=== PATIENT | female | born 1940 | race Caucasian/White ===

== ENCOUNTER 2025-01-09 00:55 | Observation (INO) | payer MEDICARE, OTHER, MEDICAID, SELFPAY ==
[2025-01-09] VITALS (10 sets, daily range): BP systolic 115–156; BP diastolic 47–83; PULSE 74–99; RESP 15–18; TEMP 36.3–37.1; O2SAT 90–100; BMI 25.6; BMI 22.3
--- NOTE | 2025-01-09 01:09 | CT_ITS ---
EXAM: BRAIN/HEAD WITHOUT CONTRAST CLINICAL HISTORY: Syncope COMPARISON: None. TECHNIQUE: Noncontrast images of the head with multiplanar reconstructions. Dose reduction techniques were used including intermediate exposure control (AEC),iterative reconstruction technique, and/or mA and/or KV dose adjustments based on patient's size. FINDINGS: CT HEAD FINDINGS: No acute intracranial hemorrhage, mass, mass effect, midline shift or pathologic extra-axial fluid collection. Nonspecific periventricular white matter changes are noted. The ventricles and cisterns are moderately prominent. Visualized paranasal sinuses and mastoid air cells are clear. The calvarium is grossly intact. CT/Brain/Head without Contrast IMPRESSION: 1. No CT evidence of acute intracranial pathology. 2. Age-appropriate volume loss and remote small vessel ischemic changes. Reading Location: [facility]
--- NOTE | 2025-01-09 01:09 | CT_ITS ---
PROCEDURE: SPINE CERVICAL WITHOUT CONTRAS REASON FOR EXAM: Fall TECHNIQUE: Cervical spine CT without contrast. COMPARISON: None. FINDINGS: Alignment: Normal Vertebrae: No acute fracture Soft Tissues: No large prevertebral hematoma Mild degenerative changes in the disc spaces. CT/Spine Cervical without Contras IMPRESSION: Degenerative change with no acute osseous abnormality. One or more dose reduction techniques were used (e.g., Automated exposure contr ol, adjustment of the mA and/or kV according to patient size, use of iterative reconstruction technique). Reading Location: [facility]
--- NOTE | 2025-01-09 01:09 | EKG12_ITS ---
Test Reason : FALL Blood Pressure : */* mmHG Vent. Rate : 82 BPM Atrial Rate : 82 BPM P-R Int : 154 ms QRS Dur : 78 ms QT Int : 380 ms P-R-T Axes : * -18 55 degrees QTcB Int : 443 ms Sinus rhythm with Premature ventricular complexes or Fusion complexes Low voltage QRS Inferior infarct , age undetermined Cannot rule out Anterior infarct , age undetermined Abnormal ECG Confirmed by ZACH GARCIA, JOSSELIN ([id number]), purchase request editor RODY ANDERSEN ([id number]) on 01/10/2025 8:24:10 AM Referred By: Confirmed By: JOSSELIN SERRANO MD
[2025-01-09 01:46] LABS: Absolute Lymphocyte Count 1.02 X10^3/uL (0.83-4.51); Absolute Neutrophil Count 14.4 X10^3/uL (2.0-7.7); Basophil# 0.04 X10^3/uL; Basophil% 0.2 % (0-1); Eosinophil# 0.06 X10^3/uL; Eosinophils% 0.4 % (0-5); Hematocrit 26.5 % (37-47); Hemoglobin 8.5 g/dL (12.0-15.0); Lymphocyte # 1.02 X10^3/ul (0.83-4.51); Mean Corp Hgb Conc 32.1 g/dL (32-36); Mean Corpuscular Hgb 27.7 pg (27.0-32.0); Mean Corpuscular Volume 86.3 fL (81-99); Mean Platelet Vol. 11.2 fl (6.2-12.0); Monocyte# 1.48 X10^3/uL; Monocyte% 8.7 % (0-10); NRBC Flagged by Analyzer 0 % (0-5); Neutrophil # 14.43 X10^3/uL (2.7-7.7); Neutrophil % 84.3 % (47-70); Platelet Count 279 K/mm3 (150-450); RBC Distribution Width CV 15.9 % (11.6-14.6); RBC Distribution Width SD 49.2 fl (35.1-43.9); Red Blood Count 3.07 M/mm3 (4.2-5.4); White Blood Count 17.1 K/mm3 (4.4-11.0)
[2025-01-09 02:00] LABS: Anion Gap 11 (5-15); BUN 50 mg/dL (7-18); BUN/Creat Ratio 33.8 RATIO (10-20); Calcium,Total 8.6 mg/dL (8.5-10.1); Chloride 102 mmol/L (98-107); Creatinine, Serum 1.48 mg/dL (0.55-1.02); EST Glomerular Filtration Rate 36 mL/min (>60); Est Glom Filt Rate - Afr Amer 43 mL/min (>60); Estimated Creatinine Clearance 22.07 ml/min; Glucose 111 mg/dL (74-106); Magnesium 1.7 mg/dL (1.6-2.6); Potassium 3.3 mmol/L (3.5-5.1); Sodium Level 131 mmol/L (136-145)
--- NOTE | 2025-01-09 02:00 | RAD_ITS ---
PROCEDURE: PELVIS 1 OR 2 VIEWS REASON FOR EXAM: Fall TECHNIQUE: 1 view(s) of the pelvis. COMPARISON: None FINDINGS: No fracture. No suspicious bone lesion. Mild joint space narrowing bilaterally. Normal alignment at the hips and sacroiliac joints. Soft tissues are unremarkable. RAD/Pelvis 1 or 2 Views IMPRESSION: Degenerative changes with no acute osseous abnormality in the pelvis. Reading Location: [facility]
[2025-01-09 02:26] LABS: Bacteria 0 SEEN /hpf (None Seen); Mucous, Urine 0 SEEN /hpf (<or=2+); Squamous Epithelial Cells - UA 0 SEEN /hpf (5-10); White Blood Cells 0 SEEN /hpf (0-5)
--- NOTE | 2025-01-09 02:26 | EDS_ITS ---
HPI History of Present Illness Chief Complaint: Fall Informant: patient and EMS Narrative Narrative: Patient is an 84-year-old female with past medical history of hypothyroidism hypertension hyperlipidemia and dementia. She was recently seen in the hospital on January 02 secondary to mechanical fall where she was found to have an impacted left humeral fracture. There was concern that she may need placed in chcf/rehab so she was kept overnight. However she apparently was able to ambulate and wanted discharged home and therefore was sent back to her home instead of a facility. Reportedly this evening the patient was found lying on the floor by her . The patient states she does not know how she arrived on the floor. She is unsure if she tripped and fell or had a syncopal event. She reports pain in her left arm which is the known fracture but otherwise denies any new areas of trauma. However because of the repeated fall versus syncope she was brought in for evaluation [facility] Home Medications ?Medication ?Instructions ?Recorded ?Last Taken ?Type aspirin 81 mg tablet,delayed 81 mg PO DAILY Heart heal th 01/02/25 Unknown History release atorvastatin 10 mg tablet 80 mg PO QHS cholestrol 08/18 Unknown History calcium 500 mg (as 2 tab PO QHS supplement 08/18 Unknown History carbonate)-vitamin D3 5 mcg (200 unit) tablet (Oyster Shell Calcium-Vitamin D3) clopidogrel 75 mg tablet 75 mg PO DAILY Blood thinner 01/02/25 Unknown History donepezil 5 mg tablet 5 mg PO QHS BP 01/02/25 Unkn own History ergocalciferol (vitamin D2) 1,250 1,250 mcg PO FR supp lement 01/02/25 Unknown History mcg (50,000 unit) capsule gabapentin 300 mg capsule 300 mg PO BID 01/02/25 Unkno wn History isosorbide mononitrate 60 mg 60 mg PO DAILY Heart fail ure 01/02/25 Unknown History tablet,extended release 24 hr levothyroxine 50 mcg tablet 50 mcg PO DAILY 01/02/25 U nknown History losartan 25 mg tablet 25 mg PO DAILY BP 01/02/25 U nknown History metoprolol succinate 50 mg 50 mg PO BID 01/02/25 Unkno wn History tablet,extended release 24 hr mirtazapine 7.5 mg tablet 7.5 mg PO QHS 01/02/25 Unkno wn History omega 3-ypp-itr-fish oil 300 3 cap PO DAILY 01/02/25 U nknown History mg-1,000 mg capsule (Fish Oil) pantoprazole 40 mg tablet,delayed 40 mg PO QHS GERD Unknown History release sucralfate 1 gram tablet 1 g PO BIDAC 01/02/25 Unknow n History acetaminophen 500 mg tablet 1,000 mg (2 x 500 mg) PO Q 8 #0 tabs 01/04/25 Unknown Rx cyanocobalamin (vitamin B-12) 1,000 mcg PO DAILY 01/04 Unknown History 1,000 mcg tablet guaifenesin 600 mg tablet, 600 mg PO BID 01/04/25 Unkn own History extended release 12 hr Allergy/AdvReac Type Severity Reaction Status Date / Time codeine AdvReac Intermediate UNKNOWN Verified 01/09/25 01:00 Social History Smoking Status: Heavy Smoker (>10/day) ROS ROS ED ROS Narrative Please note review of systems may be unreliable secondary to history of dementia Constitutional Constitutional ED: Denies chills or fever(s) Eyes Eyes: Denies change in vision ENT ENT ED: Denies sore throat Cardiovascular Cardiovascular: Denies chest pain, palpitations or racing heartbeat Respiratory/Chest Respiratory/Chest: Denies cough or dyspnea Gastrointestinal Gastrointestinal: Denies abdominal pain, diarrhea, nausea or vomiting Genitourinary Genitourinary ED: Denies dysuria Musculoskeletal Musculoskeletal: Denies back pain or neck pain Integumentary Denies rash Neurologic Neurologic: Denies headache(s) Hematologic/Lymphatic Hematologic/Lymphatic: Denies easy bleeding or easy bruising EXAM Physical Exam Const Vital Signs: 01/09/25 00:57 01/09/25 04:53 Temperature 98.5 F Temperature Source Oral Pulse Rate 82 76 Respiratory Rate 16 16 Blood Pressure 115/57 L 118/47 L Blood Pressure Mean 76 70 Pulse Ox 94 90 Oxygen Delivery Method Nasal Cannula Nasal Cannula Oxygen Flow Rate (L/min) 2 4 Positive well nourished, well developed and obese General Appearance ED: well developed Nutritional Appearance: obese HEENT HEENT Narrative: Normocephalic atraumatic No signs of depressed or basilar skull fracture No tongue or cheek biting to suggest seizure activity Eyes PERRL and EOMs intact bilaterally General Eye ED: Negative for scleral icterus Neck supple Neck Narrative: No bony deformity or step-off of the cervical spine no midline tenderness to palpation Chest Wall palpation of chest normal Chest Narrative: No bony deformity or subcutaneous emphysema noted Resp normal respiratory effort Resp Narrative: Breath sounds are diminished throughout but overall clear to auscultation No nasal flaring retractions tachypnea or accessory muscle use Cardio regular rate and regular rhythm Rate: other Other Details: Heart is regular rate and rhythm with occasional ectopic beat noted Radial and carotid pulses are equal and symmetric GI normal to inspection, nondistended, normoactive bowel sounds, non-tender, non- distended and no masses Auscultation: normoactive bowel sounds Palpation: soft Extremity Extremity Narrative: Pelvis is stable there is no shortening or external rotation of either lower extremity Patient has a large amount of soft tissue swelling ecchymosis to the left humerus consistent with history of recent fracture. However the left upper extremity is neurovascularly intact and all compartments are soft and compressible going against compartment syndrome Neuro CN's II-XII intact bilaterally Neuro Narrative: Patient is at her baseline mental status based on recent chart review without focal neurologic deficit Sensorium / Orientation: alert Psych Psych Narrative: Patient has a flat affect Skin Skin Narrative: Ecchymosis and healing abrasions from the fall on January 02 without new signs of trauma No overlying soft tissue changes to suggest infection MDM MDM MDM Narrative Medical decision making narrative: Patient arrived to the ER requiring 2 L nasal cannula to keep her sats greater than 90% but otherwise had stable vitals. She has a history of dementia and does not remember how she fell. It very well could be mechanical similar to the previous day but as she does not remember there is concern syncope versus subarachnoid or subdural hemorrhage. Therefore elected to perform a noncontrast head and cervical spine CT. these images revealed no acute trauma such as bleed or fracture. An EKG was obtained which showed no signs of ischemia or no abnormal cardiac rhythm. Basic blood work was obtained and does show anemia with a value of 8.5 but chart review reveals that her hemoglobin was 9.1 roughly 5 days ago and therefore this is not a clinically significant drop. Her creatinine is slightly elevated from baseline but not enough to to indicate acute kidney injury and likely significant electrolyte abnormalities. The patient is afebrile and has no complaints but her white count is elevated and she does have left shift with neutrophilia. In order to check for potential cause of infection urine sample was obtained which revealed no signs of bacteria. COVID influenza and RSV were obtained as well secondary to her leukocytosis and hypoxia but this was negative and chest x-ray did not reveal any type of pneumonia. Therefore I feel that the leukocytosis is most likely stress response. I was able to contact the who confirms the patient does not require oxygen at baseline. He states that it is essentially just him and her as they only have a stepdaughter who they do not get along with and there are no other children or family members around to help take care of them. He states he also has his own medical issues which makes it difficult for him to care for her. He does admit that he wished to take her home the previous day because she does not want to leave the house but with her recurrent falls and his own medical issues he now agrees that patient will most likely need placed in some type of rehab or [facility]cf facility secondary to her debility and left humeral fracture. Secondary to this I contacted the hospitalist who does agree to accept the patient for continued care History & Record Review Discussion w/independent historian: EMS personnel, Patient and Significant other Lab Data Attestation: I reviewed the patient's lab results. Labs: Laboratory Results - last 24 hr 01/09/25 01/09/25 01:36 02:20 WBC 17.1 H RBC 3.07 L Hgb 8.5 L Hct 26.5 L MCV 86.3 MCH 27.7 MCHC 32.1 RDW Std Deviation 49.2 H RDW Coeff of Adonis 15.9 H Plt Count 279 MPV 11.2 Immature Gran % (Auto) 0.400 Neut % (Auto) 84.3 H Lymph % (Auto) 6.0 L Island % (Auto) 8.7 Eos % (Auto) 0.4 Baso % (Auto) 0.2 Absolute Neuts (auto) 14.4 H Absolute Lymphs (auto) 1.02 Nucleated RBC % 0 Sodium 131 L Potassium 3.3 L Chloride 102 Carbon Dioxide 19.0 L Anion Gap 11 BUN 50 H Creatinine 1.48 H Estim Creat Clear Calc 22.07 Est GFR (MDRD) Af Amer 43 L Est GFR (MDRD) Non-Af 36 L BUN/Creatinine Ratio 33.8 H Glucose 111 H Calcium 8.6 Magnesium 1.7 Urine Color Yellow Urine Clarity Clear Urine pH 5.0 Ur Specific [place] 1.010 Urine Protein 30 H Urine Glucose (UA) Normal Urine Ketones Negative Urine Occult Blood 10 H Urine Nitrite Negative Urine Bilirubin Negative Urine Urobilinogen Normal Ur Leukocyte Esterase Negative Urine RBC 0 SEEN Urine WBC 0 SEEN Ur Squamous Epith Cells 0 SEEN Urine Bacteria 0 SEEN Urine Mucus 0 SEEN Radiography Diagnostic Testing: Clinical Impression(s) from Imaging Studies Brain CT 01/09/25 01:[address]: [address] evidence of acute intracranial pathology. 2. Age-appropriate volume loss and remote small vessel ischemic changes. Reading Location: [facility] Cervical Spine CT 01/09/25 01:09 IMPRESSION: Degenerative change with no acute osseous abnormality. One or more dose reduction techniques were used (e.g., Automated exposure control, adjustment of the mA and/or kV according to patient size, use of iterative reconstruction technique). Reading [facility] Pelvis X-Ray 01/09/25 02:00 IMPRESSION: Degenerative changes with no acute osseous abnormality in the pelvis. Reading Location: [facility] [employer] Chest X-Ray 01/09/25 03:10 IMPRESSION: No radiographic evidence of acute cardiopulmonary disease. Reading Location: [facility] 1 view pelvis x-ray as interpreted by the emergency medicine physician reveals mild degenerative changes without acute fracture or dislocation Chest x-ray as interpreted by the emergency medicine physician reveals no acute infiltrate pneumothorax pleural effusion or rib fracture Discharge Plan Triage Chief Complaint: Fall ED Provider: Jaxson Scott Dx/Rx/DC Orders Clinical Impression: Hypertension, Closed fracture of humerus, Physical debility, Hypoxia, Dementia, Leukocytosis Prescriptions: No Action donepezil 5 mg tablet 5 mg PO QHS atorvastatin 10 mg tablet 80 mg PO QHS clopidogrel 75 mg tablet 75 mg PO DAILY aspirin 81 mg tablet,delayed release (DR/EC) 81 mg PO DAILY ergocalciferol (vitamin D2) 1,250 mcg (50,000 unit) capsule 1,250 mcg PO FR calcium carbonate-vitamin D3 [Oyster Shell Calcium-Vit D3] 500 mg-5 mcg (200 unit) tablet 2 tab PO QHS omega 3-wed-lkh-fish oil [Fish Oil] 300-1,000 mg capsule 3 cap PO DAILY metoprolol succinate 50 mg tablet extended release 24 hr 50 mg PO BID sucralfate 1 gram tablet 1 g PO BIDAC isosorbide mononitrate 60 mg tablet extended release 24 hr 60 mg PO DAILY levothyroxine 50 mcg tablet 50 mcg PO DAILY pantoprazole 40 mg tablet,delayed release (DR/EC) 40 mg PO QHS losartan 25 mg tablet 25 mg PO DAILY gabapentin 300 mg capsule 300 mg PO BID Patient Comments: [NO ORIGINAL SIG] mirtazapine 7.5 mg tablet 7.5 mg PO QHS cyanocobalamin (vitamin B-12) 1,000 mcg tablet 1,000 mcg PO DAILY guaifenesin 600 mg tablet extended release 12hr 600 mg PO BID Patient Comments: [NO ORIGINAL SIG] acetaminophen 500 mg Tablet 1,000 mg PO Q8 Qty: 0 0RF Primary Care Provider: Wayne Conde Referrals: Wayne Conde DO [Primary Care Provider] - Print Language: Citizen [place] Disposition Disposition: Acute Care Hospital [facility]
[2025-01-09 02:28] LABS: Color, Urine Yellow (Yellow); Glucose, Dipstick Normal (Normal); Ketone-Dipstick Negative (Negative); Leukocyte Esterase-Dipstick Negative /ul (Negative); Nitrite-Dipstick Negative (Negative); Occult Blood-Urine 10 /ul (Negative); Protein-Dipstick 30 mg/dl (Negative); Urine Bilirubin Dipstick Negative (Negative); Urine Clarity Clear (Clear); Urine Urobilinogen Normal (Normal)
[2025-01-09 02:36] LABS: Red Blood Cells-Urine 0 SEEN /hpf (0-5)
[2025-01-09] MEDS: 0.9% Normal Saline (500mL Bag) 500 ML 999 ML IV (02:37)
--- NOTE | 2025-01-09 03:10 | RAD_ITS ---
PROCEDURE: CHEST 1 VIEW (PORTABLE) REASON FOR EXAM: Hypoxia TECHNIQUE: Frontal and lateral views of the chest. COMPARISON: None. FINDINGS: The heart size is normal. Calcifications in the aortic arch The mediastinal contour is unremarkable. The lungs are clear. The bones are unremarkable. RAD/Chest 1 View (Portable) IMPRESSION: No radiographic evidence of acute cardiopulmonary disease. Reading Location: [facility]
--- NOTE | 2025-01-09 04:41 | ED.RN ---
Attempted to call daughter and at 3:22am and 4:39am. Unable to reach. Phone call placed to [facility] and dispatch attempting to admit.
--- NOTE | 2025-01-09 05:07 | PCM.HP.STD ---
[facility] General General Date of Admission: 01/09/25 Date of Service: 01/09/25 Chief Complaint: Fall. [facility] Narrative ABDIFATAH MILLER, is a Right-handed 84 F with a past medical history of essential hypertension; on metoprolol and losartan, hyperlipidemia; on atorvastatin, overweight; with BMI of 25.6 this admission, history of tobacco abuse, CAD; on BASA and clopidogrel plus ISMO, chronic dementia; on donepezil, depression; on mirtazapine, neuropathy; on gabapentin BID, GERD; on pantoprazole and sucralfate, OA and recent admission here from January 03, 2025 to January 05, 2025 for treatment of nondisplaced, impacted Left humeral fracture after fall with patient initially admitted because she was not able to be cared for at home and with outpatient follow-up in 1-2 weeks for repeat X-rays recommended by orthopod - but her family decided to take her home rather than let her transition to subacute rehabilitation who now re-presents to [facility] ER complaining of another fall at home after her found her on the floor at home. Mrs. Miller is not a fully-reliable historian at this time so information was gathered from chart, medical staff and computer. According to the records she was found on the floor by her with patient unsure if she tripped or fell or had a syncopal event due to her dementia. She did report increasing pain in her Left arm but otherwise denies significant head trauma, LOC or other significant injury. Now because of her repeated fall she was brought in by her so that she could be transition to [place] [facility]. The patient denies fever, chills, visual changes, runny nose, sore throat, chest pain, shortness of breath, abdominal pain, nausea, vomiting, diarrhea, constipation, dysuria, back pain or headache. In the ER she was noted to have unremarkable brain CT, cervical spine CT, pelvic x-ray, and chest x-ray but she was noted to have laboratory evidence of Leukocytosis of 17.1 K present on admission suspected to be due to acute phase reaction with corresponding negative urinalysis complicated by Hypokalemia of 3.3 mmol/L present on admission and highly elevated BUN of 50 mg/dL with serum creatinine of 1.48 mg/dL (which is in patient's normal range) worrisome for possible PUD compounded by second fall in approximately 6 days with Generalized Weakness and Ambulatory Dysfunction and she was then admitted to the general medical floor under observation status for status expected to be less than 2 midnights. [facility] Medical History (Updated 01/09/25 @ 06:52 by Elidia Neumann) Fx humerus shaft-closed Osteoarthritis Depressed GERD (gastroesophageal reflux disease) Dementia HLD (hyperlipidemia) Coronary artery disease Hypertension Thyroid disease Home Medications ?Medication ?Instructions ?Recorded ?Last Taken ?Type aspirin 81 mg tablet,delayed 81 mg PO DAILY Heart health 01/02/25 Unknown History release atorvastatin 10 mg tablet 80 mg PO QHS cholestrol 01/02/25 Unknown History calcium 500 mg (as 2 tab PO QHS supplement 01/02/25 Unknown History carbonate)-vitamin D3 5 mcg (200 unit) tablet (Oyster Shell Calcium-Vitamin D3) clopidogrel 75 mg tablet 75 mg PO DAILY Blood thinner 01/02/25 Unknown History donepezil 5 mg tablet 5 mg PO QHS BP 01/02/25 Unknown History ergocalciferol (vitamin D2) 1,250 1,250 mcg PO FR supplement 01/02/25 Unknown History mcg (50,000 unit) capsule gabapentin 300 mg capsule 300 mg PO BID 01/02/25 Unknown History isosorbide mononitrate 60 mg 60 mg PO DAILY Heart failure 01/02/25 Unknown History tablet,extended release 24 hr levothyroxine 50 mcg tablet 50 mcg PO DAILY 01/02/25 Unknown History losartan 25 mg tablet 25 mg PO DAILY BP 01/02/25 Unknown History metoprolol succinate 50 mg 50 mg PO BID 01/02/25 Unknown History tablet,extended release 24 hr mirtazapine 7.5 mg tablet 7.5 mg PO QHS 01/02/25 Unknown History omega 7-lwp-npk-fish oil 300 3 cap PO DAILY 01/02/25 Unknown History mg-1,000 mg capsule (Fish Oil) pantoprazole 40 mg tablet,delayed 40 mg PO QHS GERD 01/02/25 Unknown History release sucralfate 1 gram tablet 1 g PO BIDAC 01/02/25 Unknown History cyanocobalamin (vitamin B-12) 1,000 mcg PO DAILY 01/04/25 Unknown History 1,000 mcg tablet guaifenesin 600 mg tablet, 600 mg PO BID 01/04/25 Unknown History extended release 12 hr Allergy/AdvReac Type Severity Reaction Status Date / Time codeine AdvReac Intermediate UNKNOWN Verified 01/09/25 01:00 Social History Smoking Status: Heavy Smoker (>10/day) ROS ROS Narrative Review of Systems: Constitutional: Patient admits to generalized weakness and 2 falls in 6 days but she denies fever or chills. Eyes: Patient denies changes in vision or discharge from eyes. ENT: Patient denies runny nose, sore throat or ear pain. Resp: Patient denies shortness of breath or cough. CV: Patient denies chest pain, palpitations, heart racing or lower extremity edema. GI: Patient denies abdominal pain, nausea, vomiting, diarrhea or constipation. : Patient denies dysuria or hematuria. MSK: Patient admits to worsening pain from Left shoulder with generalized weakness and ambulatory dysfunction. Skin: Patient denies rash, abscess, wounds or jaundice. Psych: Patient denies symptoms of uncontrolled depression or anxiety. Neuro: Patient has history of dementia but she denies headache, paresthesias or new focal neurologic deficits. Allergy: Patient denies lip swelling, tongue swelling or urticaria. Hematology: Patient denies easy bleeding or easy bruisability. Endocrinology: Patient denies polyuria, polydipsia or polyphagia. 14 point review of systems otherwise negative several positives noted above in HPI. Vital Signs Vital Signs Vital Signs: 01/09/25 00:57 01/09/25 04:53 Temperature 98.5 F Temperature Source Oral Pulse Rate 82 76 Respiratory Rate 16 16 Blood Pressure 115/57 L 118/47 L Blood Pressure Mean 76 70 Pulse Ox 94 90 Oxygen Delivery Method Nasal Cannula Nasal Cannula Oxygen Flow Rate (L/min) 2 4 Weight Weight: 126 lb 12.253 oz Body Mass Index (BMI) 25.6 Physical Exam Const alert, no apparent distress and average body habitus Constitutional Narrative: Patient is confused and appears mildly uncomfortable. General Appearance: cooperative HEENT normocephalic, head/scalp atraumatic, hearing grossly normal bilaterally and moist oral mucous membranes Eyes PERRL, EOMs intact bilaterally and conjunctivae normal Neck no lymphadenopathy, supple and no JVD Resp normal respiratory effort, no retractions, no use of accessory muscles and clear to auscultation bilaterally Cardio regular rate and regular rhythm GI normal to inspection, nondistended, normoactive bowel sounds, soft to palpation, non-tender and non-distended Extremity Extremity Narrative: Patient has LUE and sling. Skin Skin Narrative: Patient also evidence of rash, abscess, wounds or jaundice. Neuro CN's II-XII intact bilaterally, moves all extremities and no focal motor deficits Sensorium / Orientation: awake, alert, oriented to person and oriented to place Speech: speech normal Psych affect normal Results Medical Records Data Attestation: I reviewed the patient's medical records Lab / Micro Data Attestation: I reviewed the patient's lab results. 01/09/25 01:36 01/09/25 01:36 Labs: Laboratory Results - last 24 hr 01/09/25 01:36: WBC 17.1 H, RBC 3.07 L, Hgb 8.5 L, Hct 26.5 L, MCV 86.3, MCH 27.7, MCHC 32.1, RDW Std Deviation 49.2 H, RDW Coeff of Adonis 15.9 H, Plt Count 279, MPV 11.2, Immature Gran % (Auto) 0.400, Neut % (Auto) 84.3 H, Lymph % (Auto) 6.0 L, [place] % (Auto) 8.7, Eos % (Auto) 0.4, Baso % (Auto) 0.2, Absolute Neuts (auto) 14.4 H, Absolute Lymphs (auto) 1.02, Nucleated RBC % 0, Sodium 131 L, Potassium 3.3 L, Chloride 102, Carbon Dioxide 19.0 L, Anion Gap 11, BUN 50 H, Creatinine 1.48 H, Estim Creat Clear Calc 22.07, Est GFR (MDRD) Af Amer 43 L, Est GFR (MDRD) Non-Af 36 L, BUN/Creatinine Ratio 33.8 H, Glucose 111 H, Calcium 8.6, Magnesium 1.7 01/09/25 02:20: Urine Color Yellow, Urine Clarity Clear, Urine pH 5.0, Ur Specific [place] 1.010, Urine Protein 30 H, Urine Glucose (UA) Normal, Urine Ketones Negative, Urine Occult Blood 10 H, Urine Nitrite Negative, Urine Bilirubin Negative, Urine Urobilinogen Normal, Ur Leukocyte Esterase Negative, Urine RBC 0 SEEN, Urine WBC 0 SEEN, Ur Squamous Epith Cells 0 SEEN, Urine Bacteria 0 SEEN, Urine Mucus 0 SEEN Micro: Microbiology 01/09/25 02:39 Mucosa - Nose SARS-CoV-2, Influenza & RSV (PCR) - Final Imaging Radiology Impression Brain CT 01/09/25 01:09 IMPRESSION: 1. No CT evidence of acute intracranial pathology. 2. Age-appropriate volume loss and remote small vessel ischemic changes. [facility] 01/09/25 01:09 IMPRESSION: Degenerative change with no acute osseous abnormality. One or more dose reduction techniques were used (e.g., Automated exposure control, adjustment of the mA and/or kV according to patient size, use of iterative reconstruction technique). Reading Location: [facility] Pelvis X-Ray 01/09/25 02:00 IMPRESSION: Degenerative changes with no acute osseous abnormality in the pelvis. Reading [facility] Chest X-Ray 01/09/25 03:10 IMPRESSION: No radiographic evidence of acute cardiopulmonary disease. Reading [facility] Assessment & Plan Assessment/Plan (1) Fall: QUALIFIERS: Encounter type: initial encounter Qualified Code(s): W19.XXXA - Unspecified fall, initial encounter (2) Generalized weakness: (3) Ambulatory dysfunction: (4) Closed fracture of humerus: QUALIFIERS: Encounter type: subsequent encounter Fracture alignment: nondisplaced Fracture healing: with routine healing Fracture morphology: transverse Humerus Location: shaft Laterality: left Qualified Code(s): S42.325D - Nondisplaced transverse fracture of shaft of humerus, left arm, subsequent encounter for fracture with routine healing (5) Elevated BUN: (6) GERD (gastroesophageal reflux disease): QUALIFIERS: Esophagitis presence: esophagitis presence not specified Qualified Code(s): K21.9 - Gastro-esophageal reflux disease without esophagitis (7) Hypokalemia: (8) Leukocytosis: QUALIFIERS: Leukocytosis type: unspecified Qualified Code(s): D72.829 - Elevated white blood cell count, unspecified (9) Dementia: QUALIFIERS: Dementia behavioral or psychological symptom: without behavioral, psychotic, or mood disturbance or anxiety Dementia severity: unspecified severity Dementia type: unspecified type Qualified Code(s): F03.90 - Unspecified dementia, unspecified severity, without behavioral disturbance, psychotic disturbance, mood disturbance, and anxiety PLAN: Plan 1. Frequent Falls due to Generalized Weakness and Ambulatory Dysfunction with patient unable to be cared for safely at home after recent admission here from January 03, 2025 to January 05, 2025 for treatment of nondisplaced, impacted Left humeral fracture after fall with patient initially admitted because she was not able to be cared for at home and with outpatient follow-up in 1-2 weeks for repeat X-rays recommended by orthopod - but her family decided to take her home rather than let her transition to subacute rehabilitation - Admit to general medical floor under observation status. PT/OT and case management consult and treat on rounds in a.m. for further recommendations regarding [place] [facility] placement was appreciated in advance. Patient is still little more than a little reluctant to go to a facility in spite of recent events. Give acetaminophen as needed for atus-bldb-fttnpltb (level 1-5/10) pain or fever. Give oral oxycodone as needed for severe (level 6-10/10) pain. 2. Elevated BUN of 50 mg/dL with serum creatinine of 1.48 mg/dL (which is in patient's normal range) worrisome for possible PUD in the setting of known GERD; on pantoprazole and sucralfate complicating #1 - Start pantoprazole 40 mg IV twice daily. Hemoccult stools. Hold baby aspirin and clopidogrel. We will avoid potentially blood thinning agents. Check CT scan of abdomen and pelvis to evaluate for possible ulcer. 3. Hypokalemia of 3.3 mmol/L present on admission gis programmer #1 & #2 - Give supplemental KCl and then recheck level in a.m. to ensure improvement. 4. Leukocytosis of 17.1 K present on admission suspected to be due to acute phase reaction with no overt signs of infection at this time attributable to #1 - #3 - Check CBC daily to monitor trend. 5. Chronic dementia; on donepezil adding to the medical complexity of #1 - #4 - Maintain donepezil as previous. 6. Essential Hypertension; on metoprolol and losartan - Continue metoprolol but hold losartan at this time. 7. Hyperlipidemia; on atorvastatin - Hold high-dose statin in case of myotoxicity contributing to #1 and monitor for improvement. 8. Overweight; with BMI of 25.6 this admission - Weight loss will be recommended. Check TSH. 9. History of tobacco abuse - Tobacco Cessation will be strongly encouraged with nicotine patch after control cravings. 10. CAD; on BASA and clopidogrel plus ISMO - Hold baby aspirin and clopidogrel but continue ISMO unless hypotension develops. 11. Depression; on mirtazapine - Continue current regimen. 12. Neuropathy; on gabapentin BID - Resume gabapentin as before. 13. OA - Give acetaminophen as needed as per pain scale noted above #1. 14. DVT prophylaxis - SCD's only in light of #2. Total time: Approximately (but not less than) 70 minutes. Charges/Coding Visit Charges OBSV E&M: 71994 Observ/hosp same date L2
--- NOTE | 2025-01-09 06:01 | CT_ITS ---
PROCEDURE: Noncontrast CT of the abdomen/pelvis. REASON FOR EXAM: Recent fall. Elevated BUN and creatinine. TECHNIQUE: Contiguous unenhanced axial CT images were obtained through the abdomen/pelvis. Sagittal and coronal reformats were created. COMPARISON: None available FINDINGS: The bones are osteopenic with degenerative changes in the spine. Grade 1 anterolisthesis of L5 relative to S1 due to bilateral L5 pars defects. There is grade 1 retrolisthesis of L1 relative to L2. Mild age-indeterminate superior endplate compression deformity of L1. Evaluation of the solid organs and vascular structures is limited due to lack of intravenous contrast. Proximal femurs intact. Heart is not enlarged. No sizable pericardial effusion. Moderate coronary artery calcifications. Included lower breast tissue unremarkable. Trace bilateral pleural effusions. Mild dependent atelectasis lower lobes. Minimal 2.2 cm ectasia infrarenal abdominal aorta. The abdominal aorta is heavily calcified. An IVC filter is present. No large abdominal wall defect. There is a small hiatal hernia. Patchy wall thickening of the stomach may be due to lack of distention versus peristalsis. Surgical clips in the gallbladder fossa. The liver, adrenal glands, spleen, and pancreas show no specific abnormality. The kidneys are symmetric in size and vascular calcifications inferior left kidney. Attenuation. There is nonspecific mild bilateral perinephric fat stranding. No dominant solid-appearing renal mass. Probable there is minimal dilation of both ureters, which may be due to moderate distention of the urinary bladder. No radiopaque ureteral calculus. No discrete bladder lesion. The uterus is present. No dominant adnexal lesion. No abnormally dilated bowel segments or free intraperitoneal air. Scattered patchy wall thickening of the: May be due to lack of distention versus peristalsis or chronic diverticular disease. No acute diverticulitis. The appendix is not clearly demonstrated. No secondary findings of acute appendicitis. No abdominal/pelvic adenopathy or ascites. CT/Abdomen/Pelvis without Cont IMPRESSION: There is slight dilation of the ureters, which may be due to moderate nonspecif ic distention of the urinary bladder. The patient may benefit from a Villaseñor catheter balloon. No discrete bladder lesion is demon strated. No obstructing ureteral calculus. No bowel obstruction or perforation. Colonic diverticulosis, without evidence of acute diverticulitis. Moderate coronary artery calcifications. Trace bilateral pleural effusions. 2.2 cm ectasia of the infrarenal heavily calcified abdominal aorta. Small hiatal hernia. One or more dose reduction techniques were used (e.g., Automated exposure contr ol, adjustment of the mA and/or kV according to patient size, use of iterative reconstruction technique). Reading Location: [facility]
[2025-01-09] MEDS: KCL 20MEQ in 0.9% NS 20 MEQ/1,000 ML IV.SOLN. 75 MEQ IV (06:37)
[2025-01-09] MEDS: Potassium Chloride Oral Tablet 20 MEQ 60 MEQ PO (06:37)
[2025-01-09] MEDS: Levothyroxine 50 MCG Tablet PO (06:43)
--- NOTE | 2025-01-09 06:50 | NURSING ---
patient refusing to turn at this time for this RN to do complete skin assessment
--- NOTE | 2025-01-09 08:01 | PCM.PN.HOSP ---
Reason for Visit Reason for Visit: Diagnoses Elevated white blood cell count, unspecified (01/09/25) Hypokalemia (01/09/25) Unspecified dementia, unspecified severity, without behavioral disturbance, psychotic disturbance, mood disturbance, and anxiety (01/09/25) Gastro-esophageal reflux disease without esophagitis (01/09/25) Difficulty in walking, not elsewhere classified (01/09/25) Weakness (01/09/25) Abnormal finding of blood chemistry, unspecified (01/09/25) Unspecified fracture of shaft of humerus, unspecified arm, initial encounter for closed fracture (01/09/25) Nondisplaced transverse fracture of shaft of humerus, left arm, subsequent encounter for fracture with routine healing (01/09/25) Unspecified fall, initial encounter (01/09/25) Subjective Subjective Wants to go home. Left sling at home. Objective Data Objective Data Vital Signs: Vital Signs Temp Pulse Resp BP Pulse Ox O2 Del Method O2 Flow Rate 36.5 C L 83 16 156/59 H 100 Nasal Cannula 2 01/09/25 06:40 01/09/25 06:40 01/09/25 06:40 01/09/25 06:40 01/09/25 06:40 01/09/25 06:47 01/09/25 06:47 Oxygen Flow Rate (L/min) 2 Oxygen Delivery Method Nasal Cannula Weight: 51.8 kg Body Mass Index (BMI) 22.3 Intake & Output: Intake and Output for Last 24 Hours 01/07/25 01/08/25 01/09/25 23:59 23:59 23:59 Intake Total 500 / 500 Balance 500 / 500 Lab / Micro Data 01/09/25 01:36 01/09/25 01:36 Labs: Laboratory Results - last 24 hr 01/09/25 01:36: WBC 17.1 H, RBC 3.07 L, Hgb 8.5 L, Hct 26.5 L, MCV 86.3, MCH 27.7, MCHC 32.1, RDW Std Deviation 49.2 H, RDW Coeff of Adonis 15.9 H, Plt Count 279, MPV 11.2, Immature Gran % (Auto) 0.400, Neut % (Auto) 84.3 H, Lymph % (Auto) 6.0 L, [place] % (Auto) 8.7, Eos % (Auto) 0.4, Baso % (Auto) 0.2, Absolute Neuts (auto) 14.4 H, Absolute Lymphs (auto) 1.02, Nucleated RBC % 0, Sodium 131 L, Potassium 3.3 L, Chloride 102, Carbon Dioxide 19.0 L, Anion Gap 11, BUN 50 H, Creatinine 1.48 H, Estim Creat Clear Calc 22.07, Est GFR (MDRD) Af Amer 43 L, Est GFR (MDRD) Non-Af 36 L, BUN/Creatinine Ratio 33.8 H, Glucose 111 H, Calcium 8.6, Magnesium 1.7, Folate 5.70, TSH 1.590 01/09/25 02:20: Urine Color Yellow, Urine Clarity Clear, Urine pH 5.0, Ur Specific [place] 1.010, Urine Protein 30 H, Urine Glucose (UA) Normal, Urine Ketones Negative, Urine Occult Blood 10 H, Urine Nitrite Negative, Urine Bilirubin Negative, Urine Urobilinogen Normal, Ur Leukocyte Esterase Negative, Urine RBC 0 SEEN, Urine WBC 0 SEEN, Ur Squamous Epith Cells 0 SEEN, Urine Bacteria 0 SEEN, Urine Mucus 0 SEEN Micro: Microbiology 01/09/25 02:39 Mucosa - Nose SARS-CoV-2, Influenza & RSV (PCR) - Final Radiography Diagnostic Testing: Radiology Impression Brain CT 01/09/25 01:09 IMPRESSION: 1. No CT evidence of acute intracranial pathology. 2. Age-appropriate volume loss and remote small vessel ischemic changes. Reading Location: [facility] Cervical Spine CT 01/09/25 01:09 IMPRESSION: Degenerative change with no acute osseous abnormality. One or more dose reduction techniques were used (e.g., Automated exposure control, adjustment of the mA and/or kV according to patient size, use of iterative reconstruction technique). Reading Location: [facility] Pelvis X-Ray 01/09/25 02:00 IMPRESSION: Degenerative changes with no acute osseous abnormality in the pelvis. Reading Location: [facility] Chest X-Ray 01/09/25 03:10 IMPRESSION: No radiographic evidence of acute cardiopulmonary disease. Reading [facility] Abdomen/Pelvis CT 01/09/25 06:01 IMPRESSION: There is slight dilation of the ureters, which may be due to moderate nonspecific distention of the urinary bladder. The patient may benefit from a Villaseñor catheter balloon. No discrete bladder lesion is demonstrated. No obstructing ureteral calculus. No bowel obstruction or perforation. Colonic diverticulosis, without evidence of acute diverticulitis. Moderate coronary artery calcifications. Trace bilateral pleural effusions. 2.2 cm ectasia of the infrarenal heavily calcified abdominal aorta. Small hiatal hernia. One or more dose reduction techniques were used (e.g., Automated exposure control, adjustment of the mA and/or kV according to patient size, use of iterative reconstruction technique). Reading Location[facility] Physical Exam Const alert and no apparent distress Constitutional Narrative: flat affect. does not establish eye contact with me. Yells frequenlty. HEENT head/scalp atraumatic and moist oral mucous membranes Resp normal respiratory effort, no retractions, no use of accessory muscles and clear to auscultation bilaterally Cardio regular rate, regular rhythm, S1 normal heart sound and S2 normal heart sound GI normal to inspection, nondistended, normoactive bowel sounds, soft to palpation, non-tender and non-distended Neuro Sensorium / Orientation: awake, alert, oriented to person and oriented to place Assessment & Plan Assessment/Plan (1) Fall: QUALIFIERS: Encounter type: initial encounter Qualified Code(s): W19.XXXA - Unspecified fall, initial encounter (2) Closed fracture of humerus: QUALIFIERS: Encounter type: subsequent encounter Fracture alignment: nondisplaced Fracture healing: with routine healing Fracture morphology: transverse Humerus Location: shaft Laterality: left Qualified Code(s): S42.325D - Nondisplaced transverse fracture of shaft of humerus, left arm, subsequent encounter for fracture with routine healing PLAN: Plan Debility: PT OT evaluate and treat CM/SW to assist w disposition. Left proximal humerus fracture subsequent visit [facility] LUE. [place]. Follow up with Dr. Ramos in 1 week. Chronic conditions: HLP: continue statin dementia: continue donepezil hypothyroidism: continue levothyroxine CAD: stable. continue isosorbide, asa, clopidogrel VTE prophylaxis: SCDs. Charges/Coding Visit Charges Inpatient E&M: 90531 [facility] Hosp L1
[2025-01-09] MEDS: Pantoprazole Sodium 40 MG in 0.9% Normal Saline (100mL MB+) 100 ML 330 MG IV ×2 (09:12→21:30)
[2025-01-09] MEDS: Cyanocobalamin 500 MCG Tablet 1000 MCG PO (09:13)
[2025-01-09] MEDS: Omega-3 Acid Ethyl Esters 1 GM Capsule 3 GM PO (09:13)
[2025-01-09] MEDS: guaiFENesin 600 MG Tablet PO ×2 (09:13→21:29)
[2025-01-09] MEDS: Metoprolol(XL)Succ 50 MG Tablet PO ×2 (09:15→21:31)
[2025-01-09] MEDS: Isosorbide Mononitrate 60 MG Tablet PO (09:21)
[2025-01-09] MEDS: Gabapentin 300 MG Capsule PO ×2 (09:23→21:29)
[2025-01-09] MEDS: Acetaminophen 325 MG Tablet 650 MG PO (09:23)
[2025-01-09] MEDS: Donepezil HCl 5 MG Tablet PO (21:29)
[2025-01-09] MEDS: Calcium Carb/Vitamin D 1 TABLET Tablet 2 TABLET PO (21:29)
[2025-01-09] MEDS: Mirtazapine 15 MG Tablet 7.5 MG PO (21:30)
[2025-01-10] VITALS (7 sets, daily range): BP systolic 148–159; BP diastolic 67–80; PULSE 78–89; RESP 16–18; TEMP 36.6–37.2; O2SAT 94–98; BMI 22.5
[2025-01-10] MEDS: Levothyroxine 50 MCG Tablet PO (05:55)
[2025-01-10] MEDS: Acetaminophen 325 MG Tablet 650 MG PO ×2 (05:55→22:04)
[2025-01-10 06:10] LABS: Absolute Lymphocyte Count 1.54 X10^3/uL (0.83-4.51); Absolute Neutrophil Count 8.4 X10^3/uL (2.0-7.7); Basophil# 0.02 X10^3/uL; Basophil% 0.2 % (0-1); Eosinophil# 0.11 X10^3/uL; Eosinophils% 0.9 % (0-5); Hematocrit 27.1 % (37-47); Hemoglobin 8.6 g/dL (12.0-15.0); Lymphocyte # 1.54 X10^3/ul (0.83-4.51); Lymphocyte % 13.2 % (19-41); Mean Corp Hgb Conc 31.7 g/dL (32-36); Mean Platelet Vol. 10.8 fl (6.2-12.0); Monocyte# 1.49 X10^3/uL; Monocyte% 12.8 % (0-10); NRBC Flagged by Analyzer 0 % (0-5); Neutrophil # 8.42 X10^3/uL (2.7-7.7); Neutrophil % 72.1 % (47-70); Platelet Count 337 K/mm3 (150-450); RBC Distribution Width SD 49.5 fl (35.1-43.9); Red Blood Count 3.19 M/mm3 (4.2-5.4); White Blood Count 11.7 K/mm3 (4.4-11.0)
[2025-01-10 06:30] LABS: ALB/GLOB Ratio 0.6 RATIO (0.9-2.4); AST(SGOT) 99 U/L (15-37); Alanine Aminotransfer ALT/SGPT 82 U/L (13-56); Albumin, Serum 2.2 g/dL (3.2-5.0); Alkaline Phosphatase 99 U/L (45-117); Anion Gap 11 (5-15); BUN 26 mg/dL (7-18); BUN/Creat Ratio 27.8 RATIO (10-20); Calcium,Total 8.8 mg/dL (8.5-10.1); Chloride 106 mmol/L (98-107); Creatinine, Serum 0.94 mg/dL (0.55-1.02); EST Glomerular Filtration Rate 61 mL/min (>60); Est Glom Filt Rate - Afr Amer 73 mL/min (>60); Estimated Creatinine Clearance 31.43 ml/min; Globulin 3.9 g/dL (2.2-4.2); Glucose 83 mg/dL (74-106); Magnesium 1.4 mg/dL (1.6-2.6); Phosphorus 1.8 mg/dL (2.5-4.9); Potassium 4.4 mmol/L (3.5-5.1); Protein, Total 6.1 g/dL (6.4-8.2); Sodium Level 135 mmol/L (136-145)
[2025-01-10 08:21] LABS: Vitamin B12 > 2000 pg/mL (211-911)
[2025-01-10] MEDS: Magnesium Sulfate 2 GM in Dextrose 5%-Water (100mL Bag) 100 ML IV (08:42)
[2025-01-10] MEDS: Omega-3 Acid Ethyl Esters 1 GM Capsule 3 GM PO (08:46)
[2025-01-10] MEDS: guaiFENesin 600 MG Tablet PO ×2 (08:46→22:01)
[2025-01-10] MEDS: Cyanocobalamin 500 MCG Tablet 1000 MCG PO (08:46)
[2025-01-10] MEDS: Metoprolol(XL)Succ 50 MG Tablet PO ×2 (08:47→22:02)
[2025-01-10] MEDS: Pantoprazole Sodium 40 MG Tablet PO ×2 (08:50→22:01)
[2025-01-10] MEDS: Isosorbide Mononitrate 60 MG Tablet PO (08:53)
[2025-01-10] MEDS: Gabapentin 300 MG Capsule PO ×2 (08:53→22:04)
--- NOTE | 2025-01-10 09:22 | CASEMGMT ---
Received tc from Itzel Yang from [facility] who states that she has spoken with pt and he states that pt needs to go to a SNF this time. He will be in to visit today but has two doctor appts and will not be in until late afternoon. Itzel asks that when determined, she be made aware of facility pt/ chose and when pt will dc. Updated SW.
--- NOTE | 2025-01-10 10:15 | CASEMGMT ---
Discharge Planning A list of?SNF providers including quality and resource use data and consistent with the patient's preferred geographic region, medical needs, and insurance network was created in [employer].? This list was provided to the RN UYEN. Larissa Rodrigues, Discharge Planning Asst.
--- NOTE | 2025-01-10 10:27 | CASEMGMT ---
Met with patient to complete MONIQUE form. MONIQUE form explained to patient who voiced understanding but declined to sign form. Original form placed in pt?s chart and copy provided to patient. Larissa Rodrigues, Discharge Planning Asst
[2025-01-10] MEDS: Magnesium Chloride 64 MG Delay Rel.Tablet 128 MG PO ×2 (11:56→22:00)
[2025-01-10] MEDS: Na Biphos/Potassium Phosphate PACKET 1 PACKET PO ×3 (11:56→22:00)
--- NOTE | 2025-01-10 16:28 | PN.HOSP_ITS ---
Reason for Visit Reason for Visit: Diagnoses Elevated white blood cell count, unspecified (01/09/25) Hypokalemia (01/09/25) Unspecified dementia, unspecified severity, without behavioral disturbance, psychotic disturbance, mood disturbance, and anxiety (01/09/25) Gastro-esophageal reflux disease without esophagitis (01/09/25) Difficulty in walking, not elsewhere classified (01/09/25) Weakness (01/09/25) Abnormal finding of blood chemistry, unspecified (01/09/25) Unspecified fracture of shaft of humerus, unspecified arm, initial encounter for closed fracture (01/09/25) Nondisplaced transverse fracture of shaft of humerus, left arm, subsequent encounter for fracture with routine healing (01/09/25) Unspecified fall, initial encounter (01/09/25) Objective Data Objective Data Vital Signs: Vital Signs Temp Pulse Resp BP Pulse Ox O2 Del Method O2 Flow Rate 98.9 F 79 18 156/73 H 98 Room Air 2 01/10/25 15:51 01/10/25 15:51 01/10/25 15:51 01/10/25 15:51 01/10/25 15:51 01/10/25 15:51 01/09/25 06:47 Oxygen Flow Rate (L/min) 2 Oxygen Delivery Method Room Air Weight: 114 lb 10.246 oz Body Mass Index (BMI) 22.5 Intake & Output: Intake and Output for Last 24 Hours 01/08/25 01/09/25 01/10/25 23:59 23:59 23:59 Intake Total 2283.75 / 2283.75 550.25 / 550.25 Output Total 3 / 3 Balance 2280.75 / 2280.75 550.25 / 550.25 Lab / Micro Data 01/10/25 05:19 01/10/25 05:19 Labs: Laboratory Results - last 24 hr 01/09/25 07:33: Vitamin B12 > 2000 H 01/10/25 05:19: WBC 11.7 H, RBC 3.19 L, Hgb 8.6 L, Hct 27.1 L, MCV 85.0, MCH 27.0, MCHC 31.7 L, RDW Std Deviation 49.5 H, RDW Coeff of Adonis 16.0 H, Plt Count 337, MPV 10.8, Immature Gran % (Auto) 0.800, Neut % (Auto) 72.1 H, Lymph % (Auto) 13.2 L, Kershaw % (Auto) 12.8 H, Eos % (Auto) 0.9, Baso % (Auto) 0.2, A bsolute Neuts (auto) 8.4 H, Absolute Lymphs (auto) 1.54, Nucleated RBC % 0, Sodium 135 L, Potassium 4.4, Chloride 106, Carbon Dioxide 18.0 L, Anion Gap 11, BUN 26 H, Creatinine 0.94, Estim Creat Clear Calc 31.43, Est GFR (MDRD) Af Amer 73, Est GFR (MDRD) Non-Af 61, BUN/Creatinine Ratio 27.8 H, Glucose 83, Calcium 8.8, Phosphorus 1.8 L, Magnesium 1.4 L, Total Bilirubin 0.80, AST 99 H, ALT 82 H , Alkaline Phosphatase 99, Total Protein 6.1 L, Albumin 2.2 L, Globulin 3.9, A lbumin/Globulin Ratio 0.6 L Micro: Microbiology 01/09/25 02:39 Mucosa - Nose SARS-CoV-2, Influenza & RSV (PCR) - Final Physical Exam Narrative Physical exam General: Alert, Oriented x3, Cooperative HEENT: Atraumatic, PERRLA, EOMI, Normocephalic Oral: No Gingival or Mucosal Lesions/ Ulcerations Neck: Supple, No JVD, Negative Carotid Bruits Chest wall/Lungs: Air entry diminished in bilateral lung bases. No crepitation/rhonchi Cardiovascular: Regular rate, Regular Rhythm, Normal S1, Normal S2, No M/G/R Abdomen: Bowel Sounds Present, Soft, Non Tender, Non-Distended : No dysuria. No renal angle tenderness. No suprapubic tenderness. Extremities: No edema, Capillary Refill Less than 3 Seconds Skin: No rashes, No breakdown Musculoskeletal: Right humerus mild tenderness and deformity. Patient on sling and swath. No Tenderness to Palpation of other joints or Extremities Neurological: Cranial nerves II-XII grossly intact, DTR 2+/4. No acute focal neurological deficit. Psych/Mental Status: Mildly irritable. Assessment & Plan Assessment/Plan (1) Fall: QUALIFIERS: Encounter type: initial encounter Qualified Code(s): W19.XXXA - Unspecified fall, initial encounter (2) Closed fracture of humerus: QUALIFIERS: Encounter type: subsequent encounter Humerus Location: shaft Fracture morphology: transverse Fracture alignment: n ondisplaced Laterality: left Fracture healing: with routine healing Qualified Code(s): S42.325D - Nondisplaced transverse fracture of shaft of humerus, left arm, subsequent encounter for fracture with routine healing PLAN: Plan Acute debility: * PT OT evaluate and treat * CM/SW to assist w disposition. 01/10: Pre-CERT not available yet Left proximal humerus fracture * subsequent visit * SHERRIE Williamson. Follow up with Dr. Ramos in 1 week. continue PT and OT. Chronic conditions: * HLP: continue statin * dementia: continue donepezil * hypothyroidism: continue levothyroxine * CAD: stable. continue isosorbide, asa, clopidogrel VTE prophylaxis: SCDs. Charges/Coding Visit Charges Inpatient E&M: 06781 Subs Hosp L2
--- NOTE | 2025-01-10 18:58 | CASEMGMT ---
Social Work Collaboration with manager rail Raquel who reports patient's direction home pillowcase maker Itzel Medrano called and indicate that patient's is now in agreement with nursing facility placement. will be in to the hospital later this afternoon. Chart reviewed. Noted that patient was just at [facility] within the last 30 days. -Patient has a direction home pillowcase maker through the [facility], Itzel Medrano. Phone number [phone]. . -Patient received 7 meals a week delivered, medical alert, and home health aides through [facility]. -Chart review indicates home health aides Friday, Friday, Friday for 4 hours and then on Tuesdays and for 1 hour. Patient's arrived to the unit. Met with patient and , introducing to self and social work role. Patient laying in bed, not participating in conversation, with the speaking loudly ( is hard of hearing) telling the patient's that she needs to eat and get stronger and that the patient needs to go somewhere in order to get stronger. asked this telegraphic typewriter operator if the patient is supposed to go somewhere for rehab, which this telegraphic typewriter operator did indicate would be the recommendation for nursing facility placement. Provided senior living facility choice list for the patient's insurance network and geographical region, including Medicare star ratings and quality data. Has been asked about [facility] transitional care unit. Educated that the TCU is not on the list, as that facility does not take Medicaid, which she is the insurance patient would need to go to the facility under. After review of the list may have these choices in this order: [facility] and then [facility]. Has been provided patient's insurance cards, which this social science professor made copies for the patient's chart. Has been intermittently tearful during conversation and indicated that he also has medical issues himself and cannot physically care for the patient right now. Much supportive listening provided to the . asked for social science professor to come back today to update as far as where patient can go. Educated that at this time of day all admissions people at the nursing facilities are gone and will not have an answer until 01/11/2025. plans to return to [facility] at 1430 on 01/11/2025, and would like to meet with social work and for an update. Obtain the 's phone number: [phone], Sameer María Elenajudd. Note there is a daughter listed on the facesheet named Naheed Ross. Has been reports the daughter is not been helpful or coming around to help out when the has requested. Plan: Will make referrals to nursing facilities. PASRR screening and Medicaid level of care will need to be completed once an accepting facility is identified. Social work will continue to follow and assist with discharge planning needs. -SANDEE Martini, PAYROLL PROCESSOR *This note was generated with [employer] dictation software. It may contain incorrect words, spelling, and punctuation that were not noted in review of the chart prior to signing*
[2025-01-10] MEDS: Donepezil HCl 5 MG Tablet PO (22:01)
[2025-01-10] MEDS: Mirtazapine 15 MG Tablet 7.5 MG PO (22:01)
[2025-01-11] VITALS (7 sets, daily range): BP systolic 139–155; BP diastolic 67–87; PULSE 82–96; RESP 16–18; TEMP 36.1–36.6; O2SAT 96–100; BMI 22.5
[2025-01-11] MEDS: 0.9% Saline Lock 10 ML Syringe IV (05:36)
[2025-01-11] MEDS: Levothyroxine 50 MCG Tablet PO (05:36)
[2025-01-11] MEDS: Na Biphos/Potassium Phosphate PACKET 1 PACKET PO ×2 (05:36→21:10)
[2025-01-11] MEDS: Acetaminophen 325 MG Tablet 650 MG PO ×2 (05:36→21:23)
[2025-01-11 07:13] LABS: Magnesium 1.9 mg/dL (1.6-2.6); Phosphorus 3.6 mg/dL (2.5-4.9)
--- NOTE | 2025-01-11 08:56 | CASEMGMT ---
Addendum entered by Larissa Rodrigues 01/11/25 10:43: [facility] declined. Pts second choice, [facility], has no beds. SW updated and will meet with pt/family for alternate choices. Larissa Rodrigues DC Planning Asst. Original Note: Referral sent to [facility]. Larissa Rodrigues DC Planning Asst.
[2025-01-11] MEDS: Menthol/Lanolin/Calamine/Znox 113 GM Tube 1 APPLIC TOPICAL ×2 (09:42→21:11)
[2025-01-11] MEDS: Omega-3 Acid Ethyl Esters 1 GM Capsule 3 GM PO (09:43)
[2025-01-11] MEDS: Isosorbide Mononitrate 60 MG Tablet PO (09:43)
[2025-01-11] MEDS: Pantoprazole Sodium 40 MG Tablet PO ×2 (09:44→21:11)
[2025-01-11] MEDS: Metoprolol(XL)Succ 50 MG Tablet PO ×2 (09:44→21:27)
[2025-01-11] MEDS: guaiFENesin 600 MG Tablet PO ×2 (09:44→21:10)
[2025-01-11] MEDS: Magnesium Chloride 64 MG Delay Rel.Tablet 128 MG PO ×2 (09:44→21:10)
[2025-01-11] MEDS: Gabapentin 300 MG Capsule PO ×2 (09:47→21:23)
--- NOTE | 2025-01-11 10:50 | CASEMGMT ---
Social Work- DAI spoke with [facility] to update on pt discharge plans. SW to continue to update as discharge plan is finalized. ZECHARIAH Guerrier
--- NOTE | 2025-01-11 11:38 | CASEMGMT ---
Social Work- SW called pt spouse to update on pt referrals. Pt spouse will be in at 2-3 today and will discuss additional choices at that time. Pt spouse is very hard of hearing and finds it challenging to communicate via telephone. SW will meet with pt upon arrival. DCA updated. ZECHARIAH Guerrier
--- NOTE | 2025-01-11 14:10 | CASEMGMT ---
Addendum entered by Larissa Rodrigues 01/12/25 08:51: [facility] has accepted and is FOC. [facility] and [facility] asked to cancel referral. Larissa Rodrigues DC Planning Asst. Addendum entered by Larissa Rodrigues 01/11/25 16:00: Both [facility] and [facility] have accepted but pts has changed mind and foc is [facility]. Referral sent. Larissa Rodrigues DC Planning Asst. Original Note: Referral sent to [facility] and [facility]. Larissa Rodrigues DC Planning Asst.
--- NOTE | 2025-01-11 15:06 | CASEMGMT ---
Addendum entered by Corine Morton 01/11/25 16:26: [facility] and [facility] accepted referral. [facility] accepted pending insurance verification. Spouse updated. [facility] is FOC if accepted followed by [facility]. SW remains available to follow. ZECHARIAH Guerrier Original Note: Social Work- SW met with pt spouse to select additional choices for SNF placement. Pt spouse selected [facility], [facility], [facility], and [facility] as choices. DCA notified of referral requests. [facility] is full. DAI remains available to follow. ZECHARIAH Guerrier
--- NOTE | 2025-01-11 16:19 | PN.HOSP_ITS ---
Reason for Visit Reason for Visit: Diagnoses Elevated white blood cell count, unspecified (01/09/25) Hypokalemia (01/09/25) Unspecified dementia, unspecified severity, without behavioral disturbance, psychotic disturbance, mood disturbance, and anxiety (01/09/25) Gastro-esophageal reflux disease without esophagitis (01/09/25) Difficulty in walking, not elsewhere classified (01/09/25) Weakness (01/09/25) Abnormal finding of blood chemistry, unspecified (01/09/25) Unspecified fracture of shaft of humerus, unspecified arm, initial encounter for closed fracture (01/09/25) Nondisplaced transverse fracture of shaft of humerus, left arm, subsequent encounter for fracture with routine healing (01/09/25) Unspecified fall, initial encounter (01/09/25) Objective Data Objective Data Vital Signs: Vital Signs Temp Pulse Resp BP Pulse Ox O2 Del Method O2 Flow Rate 97.9 F 96 18 139/67 H 100 Room Air 2 01/11/25 14:14 01/11/25 14:14 01/11/25 14:14 01/11/25 14:14 01/11/25 14:14 01/11/25 14:14 01/09/25 06:47 Oxygen Flow Rate (L/min) 2 Oxygen Delivery Method Room Air Weight: 114 lb 10.246 oz Body Mass Index (BMI) 22.5 Intake & Output: Intake and Output for Last 24 Hours 01/09/25 01/10/25 01/11/25 23:59 23:59 23:59 Intake Total 2283.75 / 2283.75 1200.25 / 1200.25 350 / 350 Output Total Balance 2280.75 / 2280.75 1200.25 / 1200.25 347 / 347 Lab / Micro Data 01/10/25 05:19 01/10/25 05:19 Labs: Laboratory Results - last 24 hr 01/11/25 05:31: Phosphorus 3.6, Magnesium 1.9 Micro: Microbiology 01/11/25 12:45 Stool Stool Occult Blood (JENNIFER) - Final Occult Blood Positive 01/09/25 02:39 Mucosa - Nose SARS-CoV-2, Influenza & RSV (PCR) - Final Physical Exam Narrative No significant change. Patient moved her bowels yesterday. Physical exam General: Alert, Oriented x3, Cooperative HEENT: Atraumatic, PERRLA, EOMI, Normocephalic Oral: No Gingival or Mucosal Lesions/ Ulcerations Neck: Supple, No JVD, Negative Carotid Bruits Chest wall/Lungs: Air entry diminished in bilateral lung bases. No crepitation/rhonchi Cardiovascular: Regular rate, Regular Rhythm, Normal S1, Normal S2, No M/G/R Abdomen: Bowel Sounds Present, Soft, Non Tender, Non-Distended : No dysuria. No renal angle tenderness. No suprapubic tenderness. Extremities: No edema, Capillary Refill Less than 3 Seconds Skin: No rashes, No breakdown Musculoskeletal: Right humerus mild tenderness and deformity. Patient on sling and swath. No Tenderness to Palpation of other joints or Extremities Neurological: Cranial nerves II-XII grossly intact, DTR 2+/4. No acute focal neurological deficit. Psych/Mental Status: Flat affect Assessment & Plan Assessment/Plan (1) Fall: QUALIFIERS: Encounter type: initial encounter Qualified Code(s): W19.XXXA - Unspecified fall, initial encounter (2) Closed fracture of humerus: QUALIFIERS: Encounter type: subsequent encounter Humerus Location: shaft Fracture morphology: transverse Fracture alignment: n ondisplaced Laterality: left Fracture healing: with routine healing Qualified Code(s): S42.325D - Nondisplaced transverse fracture of shaft of humerus, left arm, subsequent encounter for fracture with routine healing PLAN: Plan Acute debility: * PT OT evaluate and treat * CM/SW to assist w disposition. 01/10: Pre-CERT not available yet 01/11: office manager and transition social worker working on pre-CERT. Denied by 2 nursing homes. Left proximal humerus fracture * subsequent visit * SHERRIE Williamson. Follow up with Dr. Ramos in 1 week. continue PT and OT. Chronic conditions: * HLP: continue statin * dementia: continue donepezil * hypothyroidism: continue levothyroxine * CAD: stable. continue isosorbide, asa, clopidogrel VTE prophylaxis: SCDs. Charges/Coding Visit Charges Inpatient E&M: 01866 Subs Hosp L2
[2025-01-11] MEDS: Mirtazapine 15 MG Tablet 7.5 MG PO (21:11)
[2025-01-11] MEDS: Donepezil HCl 5 MG Tablet PO (21:23)
[2025-01-12] MEDS: Levothyroxine 50 MCG Tablet PO (05:36)
[2025-01-12] MEDS: Na Biphos/Potassium Phosphate PACKET 1 PACKET PO (05:36)
[2025-01-12] MEDS: Acetaminophen 325 MG Tablet 650 MG PO ×2 (05:36→20:31)
[2025-01-12 05:40] VITALS: BP 127/72; PULSE 86; RESP 16; TEMP 36.6; O2SAT 95
[2025-01-12 06:00] VITALS: BMI 22.5
[2025-01-12 09:44] VITALS: BP 113/67; PULSE 86; RESP 18; TEMP 36.6; O2SAT 95
[2025-01-12] MEDS: Isosorbide Mononitrate 60 MG Tablet PO (09:51)
[2025-01-12 09:52] VITALS: PULSE 86
[2025-01-12] MEDS: Omega-3 Acid Ethyl Esters 1 GM Capsule 3 GM PO (09:52)
[2025-01-12] MEDS: Pantoprazole Sodium 40 MG Tablet PO ×2 (09:52→20:40)
[2025-01-12] MEDS: guaiFENesin 600 MG Tablet PO ×2 (09:52→20:40)
[2025-01-12] MEDS: Metoprolol(XL)Succ 50 MG Tablet PO ×2 (09:52→20:47)
[2025-01-12] MEDS: Menthol/Lanolin/Calamine/Znox 113 GM Tube 1 APPLIC TOPICAL (09:52)
[2025-01-12] MEDS: Magnesium Chloride 64 MG Delay Rel.Tablet 128 MG PO ×2 (09:52→20:41)
[2025-01-12] MEDS: Gabapentin 300 MG Capsule PO ×2 (09:54→20:40)
--- NOTE | 2025-01-12 10:44 | CASEMGMT ---
Addendum entered by Corine Morton 01/12/25 12:09: DAI called [facility] , to update on acceptance [facility] and LOC submission. DAI will fax discharge documentation when available. ZECHARIAH Guerrier Original Note: Social Work- DAI spoke with pt spouse to update on [facility] approval. SW provided education on process for LOC approval and discharge timing after that approval. Pt spouse appreciative of update. Pt spouse plans to visit this afternoon. DAI completed PASRR and LOC. DAI faxed LOC. DAI remains available to follow for discharge needs. Plan: [facility]; skilled level of care ZECHARIAH Guerrier
--- NOTE | 2025-01-12 11:05 | TREXTCAR_ITS ---
Diet Diet Order/Speech Therapy: 01/11/25 01:14 Diet: Regular - General Type of Dietary Supplement:: Magic Cup Dessert Routine Orders/Code Status Suppository Type: Dulcolax 10mg Suppository Frequency: Daily PRN DC O2, CPAP, BIPAP needs Home O2 Discharge instructions: No Wound(s) left luis: Wound Type: scabs coccyx: Wound Type: Pressure Injury Therapies Extremity Affected:: Bilateral Lower Physical Therapy: Eval and Treat Occupational Therapy: Eval and Treat Speech Therapy: Eval and Treat Problem/Diagnosis (1) Fall: Status: Acute Code(s): W19.XXXA - Unspecified fall, initial encounter (2) Closed fracture of humerus: Status: Inactive Code(s): S42.309A - Unspecified fracture of shaft of humerus, unspecified arm, initial encounter for closed fracture Plan Acute debility: * PT OT evaluate and treat * CM/SW to assist w disposition. 01/10: Pre-CERT not available yet 01/11: manager group and social worker school working on pre-CERT. Denied by 2 nursing [facility]. Left proximal humerus fracture * subsequent visit * SHERRIE Williamson. Follow up with Dr. Ramos in 1 week. continue PT and OT. Chronic conditions: * HLP: continue statin * dementia: continue donepezil * hypothyroidism: continue levothyroxine * CAD: stable. continue isosorbide, asa, clopidogrel VTE prophylaxis: SCDs. Allergies/Procedures Done in Hospital Allergies codeine Adverse Reaction (Intermediate, Verified 01/09/25 01:00) UNKNOWN Type of Care/Length of Stay Estimated LOS: Convalescent Care Less Than 30 days Type of Care Needed: Skilled Rehab Potential: Good Prognosis: Good Additional Orders/Day of Discharge Day of Discharge: 01/12/25 Dietary and Speech Recommendations Dietitian Recommendations/Changes: Will continue liberalized regular diet with consistency/texture as per KITMAN. Will continue 120mL ensure plus HP 4 times per day w/ medpass. Monitor blood glucose level and restrict dietary carbohydrate as needed. Trend weights closely and adjust ONS as needed to optimize nutrition and prevent energy/pro depletion. Discharge Plan Admission Admit Date/Time: 01/09/25 05:49 Primary Reason for Your Visit: Left humerus fracture Attending Provider: Tan Triplett Primary Care Provider: Wayne Conde Consulting Providers: Maynor Costa; Vincent Cool Discharge Orders/Prescriptions Prescriptions: New acetaminophen 500 mg tablet 1,000 mg PO Q8 PRN (Reason: Pain 1-5/10 or Fever) Qty: 10 0RF Rx Instructions: For pain Continued donepezil 5 mg tablet 5 mg PO QHS atorvastatin 10 mg tablet 80 mg PO QHS clopidogrel 75 mg tablet 75 mg PO DAILY aspirin 81 mg tablet,delayed release (DR/EC) 81 mg PO DAILY ergocalciferol (vitamin D2) 1,250 mcg (50,000 unit) capsule 1,250 mcg PO FR calcium carbonate-vitamin D3 [Oyster Shell Calcium-Vit D3] 500 mg-5 mcg (200 unit) tablet 2 tab PO QHS omega [id number]-fish oil [Fish Oil] 300-1,000 mg capsule 3 cap PO DAILY metoprolol succinate 50 mg tablet extended release 24 hr 50 mg PO BID isosorbide mononitrate 60 mg tablet extended release 24 hr 60 mg PO DAILY levothyroxine 50 mcg tablet 50 mcg PO DAILY pantoprazole 40 mg tablet,delayed release (DR/EC) 40 mg PO QHS losartan 25 mg tablet 25 mg PO DAILY gabapentin 300 mg capsule 300 mg PO BID Patient Comments: [NO ORIGINAL SIG] mirtazapine 7.5 mg tablet 7.5 mg PO QHS cyanocobalamin (vitamin B-12) 1,000 mcg tablet 1,000 mcg PO DAILY guaifenesin 600 mg tablet extended release 12hr 600 mg PO BID Patient Comments: [NO ORIGINAL SIG] Discontinued sucralfate 1 gram tablet 1 g PO BIDAC Referrals / Follow Up: Wayne Conde DO [Primary Care Provider] - Socrates Ramos DO [Med Staff - Active Staff] - Within 1 Week (Left humerus fracture) Disposition Disposition (needs filled in before D/C Order can be placed): Custodial Facility (1) Fall Qualifiers: Encounter type: initial encounter Qualified Code(s): W19.XXXA - Unspecified fall, initial encounter (2) Closed fracture of humerus Qualifiers: Encounter type: subsequent encounter Humerus Location: shaft Fracture morphology: transverse Fracture alignment: nondisplaced Laterality: left Fracture healing: with routine healing Qualified Code(s): S42.325D - Nondisplaced transverse fracture of shaft of humerus, left arm, subsequent encounter for fracture with routine healing
--- NOTE | 2025-01-12 11:33 | DS.PCM_ITS ---
Providers Date of Admission: 01/09/25 Date of Discharge: 01/12/25 Primary Care Physician: Dr. Wayne Conde DO Reason For Visit: HYPOXIA RECURRENT FALLS DEBILITY Diagnosis Discharge Diagnosis (1) Fall: Status: Acute Code(s): W19.XXXA - Unspecified fall, initial encounter Qualifiers: Encounter type: initial encounter Qualified Code(s): W19.XXXA - Unspecified fall, initial encounter (2) Closed fracture of humerus: Status: Inactive Code(s): S42.309A - Unspecified fracture of shaft of humerus, unspecified arm, initial encounter for closed fracture Qualifiers: Encounter type: subsequent encounter Fracture alignment: nondisplaced Fracture healing: with routine healing Fracture morphology: transverse Humerus Location: shaft Laterality: left Qualified Code(s): S42.325D - Nondisplaced transverse fracture of shaft of humerus, left arm, subsequent encounter for fracture with routine healing Plan This is a 84-year-old female being admitted for acute debility due to left humerus fracture. Acute debility: * PT OT evaluate and treat * CM/SW to assist w disposition. 01/10: Pre-CERT not available yet 01/11: integration manager and social group worker working on pre-CERT. Denied by 2 nursing homes. 01/12: She got the acceptance facility therefore getting discharged. Tylenol ordered 1 g Q8 hourly as needed for pain. Pain is well-controlled. Left proximal humerus fracture * subsequent visit * SHERRIE Williamson. Follow up with Dr. Ramos in 1 week. 01/12: Continue PT and OT. Follow-up with Dr. Ramos in 1 week. Chronic conditions: * HLP: continue statin * dementia: continue donepezil * hypothyroidism: continue levothyroxine * CAD: stable. continue isosorbide, asa, clopidogrel VTE prophylaxis: SCDs. Discharge medication reconciliation done. Discharge follow-up instructions completed. Discharge process discussed with the patient and all questions were answered to patient's satisfaction. Follow with PCP in 1 to 2 weeks Total time spent, exact 35 minutes on discharge meds reconciliation, examination, coordination of care with nurses and ancillary staff, review of imaging and blood test and discussion with the patient on follow-up instructions. Medications at Discharge Home Medications aspirin 81 mg tablet,delayed release [address] [facility] 01/02/25 atorvastatin 10 mg tablet 80 mg PO QHS cholestrol 01/02/25 calcium 500 mg (as carbonate)-vitamin D3 5 mcg (200 unit) tablet (Oyster Shell Calcium-Vitamin D3) 2 tab PO QHS supplement 01/02/25 clopidogrel 75 mg tablet 75 mg PO DAILY Blood thinner 01/02/25 donepezil 5 mg tablet 5 mg PO QHS BP 01/02/25 ergocalciferol (vitamin D2) 1,250 mcg (50,000 unit) capsule 1,250 mcg PO FR supplement 01/02/25 gabapentin 300 mg capsule 300 mg PO BID 01/02/25 isosorbide mononitrate 60 mg tablet,extended release 24 hr 60 mg PO DAILY Heart failure 01/02/25 levothyroxine 50 mcg tablet 50 mcg PO DAILY 01/02/25 losartan 25 mg tablet 25 mg PO DAILY BP 01/02/25 metoprolol succinate 50 mg tablet,extended release 24 hr 50 mg PO BID 01/02/25 mirtazapine 7.5 mg tablet 7.5 mg PO QHS 01/02/25 omega 4-uny-vpc-fish oil 300 mg-1,000 mg capsule (Fish Oil) 3 cap PO DAILY 01/02/25 pantoprazole 40 mg tablet,delayed release 40 mg PO QHS GERD 01/02/25 cyanocobalamin (vitamin B-12) 1,000 mcg tablet 1,000 mcg PO DAILY 01/04/25 guaifenesin 600 mg tablet, extended release 12 hr 600 mg PO BID 01/04/25 acetaminophen 500 mg tablet 1,000 mg (2 x 500 mg) PO Q8 PRN Pain 1-5/10 or Fever #10 tabs 01/12/25 Physical Exam Narrative The patient has accepting facility therefore getting discharged. She is moving her bowels. Pain is under control. Physical exam General: Alert, Oriented x3, Cooperative HEENT: Atraumatic, PERRLA, EOMI, Normocephalic Oral: No Gingival or Mucosal Lesions/ Ulcerations Neck: Supple, No JVD, Negative Carotid Bruits Chest wall/Lungs: Air entry diminished in bilateral lung bases. No crepitation/rhonchi Cardiovascular: Regular rate, Regular Rhythm, Normal S1, Normal S2, No M/G/R Abdomen: Bowel Sounds Present, Soft, Non Tender, Non-Distended : No dysuria. No renal angle tenderness. No suprapubic tenderness. Extremities: No edema, Capillary Refill Less than 3 Seconds Skin: No rashes, No breakdown Musculoskeletal: Right humerus mild tenderness and deformity. Patient on sling and swath. No Tenderness to Palpation of other joints or Extremities Neurological: Cranial nerves II-XII grossly intact, DTR 2+/4. No acute focal neurological deficit. Psych/Mental Status: Flat affect Weight / BMI Weight Weight: 114 lb 10.246 oz Body Mass Index (BMI) 22.5 ABG / Lab / Microbiology Data 01/10/25 05:19 01/10/25 05:19 Microbiology: Microbiology 01/11/25 12:45 Stool Stool Occult Blood (JENNIFER) - Final Occult Blood Positive 01/09/25 02:39 Mucosa - Nose SARS-CoV-2, Influenza & RSV (PCR) - Final D/C Instructions DC O2, CPAP, BIPAP Needs Home O2 Discharge instructions: No Meaningful Use Info Meaningful Use Meaningful Use Diagnoses (Choose all that apply): None applicable Ischemic Stroke Statin Dosing Therapy Reference: STATIN DOSE THERAPY REFERENCE: * Patients > 75 years receive moderate or high dose statin therapy. * Patients 75 years or YOUNGER should receive HIGH intensity statin dose unless contraindicated. You will be required to document reason for non-treatment if statin daily dose does not meet guidelines. HIGH DOSE STATIN THERAPY DAILY Atorvastatin > than or = to 40 mg Rosuvastatin > than or = to 20 mg Amlodipine + Atorvastatin > than or = to 2.5/40 mg Ezetimibe + Simvastatin 10/80 mg Simvastatin 80mg Discharge Plan Admission Admit Date/Time: 01/09/25 05:49 Primary Reason for Your Visit: Left humerus fracture Attending Provider: Tan Triplett Primary Care Provider: Wayne Conde Consulting Providers: Maynor Costa; Vincent Cool Discharge Orders/Prescriptions Prescriptions: New acetaminophen 500 mg tablet 1,000 mg PO Q8 PRN (Reason: Pain 1-5/10 or Fever) Qty: 10 0RF Rx Instructions: For pain Continued donepezil 5 mg tablet 5 mg PO QHS atorvastatin 10 mg tablet 80 mg PO QHS clopidogrel 75 mg tablet 75 mg PO DAILY aspirin 81 mg tablet,delayed release (DR/EC) 81 mg PO DAILY ergocalciferol (vitamin D2) 1,250 mcg (50,000 unit) capsule 1,250 mcg PO FR calcium carbonate-vitamin D3 [Oyster Shell Calcium-Vit D3] 500 mg-5 mcg (200 unit) tablet 2 tab PO QHS omega 4-leh-uwi-fish oil [Fish Oil] 300-1,000 mg capsule 3 cap PO DAILY metoprolol succinate 50 mg tablet extended release 24 hr 50 mg PO BID isosorbide mononitrate 60 mg tablet extended release 24 hr 60 mg PO DAILY levothyroxine 50 mcg tablet 50 mcg PO DAILY pantoprazole 40 mg tablet,delayed release (DR/EC) 40 mg PO QHS losartan 25 mg tablet 25 mg PO DAILY gabapentin 300 mg capsule 300 mg PO BID Patient Comments: [NO ORIGINAL SIG] mirtazapine 7.5 mg tablet 7.5 mg PO QHS cyanocobalamin (vitamin B-12) 1,000 mcg tablet 1,000 mcg PO DAILY guaifenesin 600 mg tablet extended release 12hr 600 mg PO BID Patient Comments: [NO ORIGINAL SIG] Discontinued sucralfate 1 gram tablet 1 g PO BIDAC Referrals / Follow Up: Wayne Conde DO [Primary Care Provider] - Socrates Ramos DO [Med Staff - Active Staff] - Within 1 Week (Left humerus fracture) Disposition Disposition (needs filled in before D/C Order can be placed): [facility] Facility Charges/Coding Visit Charges Inpatient E&M: 92446 Disch Hosp >30min
--- NOTE | 2025-01-12 11:36 | PHA.DC.MR.R ---
Pharmacy [place] Med Reconciliation Pharmacy Service has performed discharge medication reconciliation for this patient. The patient's discharge medication list was reviewed for discrepancies and discrepancies were resolved. Medications at Discharge Home Medications aspirin 81 mg tablet,delayed release 81 mg PO DAILY [facility] 01/02/25 atorvastatin 10 mg tablet 80 mg PO QHS cholestrol 01/02/25 calcium 500 mg (as carbonate)-vitamin D3 5 mcg (200 unit) tablet (Oyster Shell Calcium-Vitamin D3) 2 tab PO QHS supplement 01/02/25 clopidogrel 75 mg tablet 75 mg PO DAILY Blood thinner 01/02/25 donepezil 5 mg tablet 5 mg PO QHS BP 01/02/25 ergocalciferol (vitamin D2) 1,250 mcg (50,000 unit) capsule 1,250 mcg PO FR supplement 01/02/25 gabapentin 300 mg capsule 300 mg PO BID 01/02/25 isosorbide mononitrate 60 mg tablet,extended release 24 hr 60 mg PO DAILY Heart failure 01/02/25 levothyroxine 50 mcg tablet 50 mcg PO DAILY 01/02/25 losartan 25 mg tablet 25 mg PO DAILY BP 01/02/25 metoprolol succinate 50 mg tablet,extended release 24 hr 50 mg PO BID 01/02/25 mirtazapine 7.5 mg tablet 7.5 mg PO QHS 01/02/25 omega 5-bur-rmp-fish oil 300 mg-1,000 mg capsule (Fish Oil) 3 cap PO DAILY 01/02/25 pantoprazole 40 mg tablet,delayed release 40 mg PO QHS GERD 01/02/25 cyanocobalamin (vitamin B-12) 1,000 mcg tablet 1,000 mcg PO DAILY 01/04/25 guaifenesin 600 mg tablet, extended release 12 hr 600 mg PO BID 01/04/25 acetaminophen 500 mg tablet 1,000 mg (2 x 500 mg) PO Q8 PRN Pain 1-5/10 or Fever #10 tabs 01/12/25
--- NOTE | 2025-01-12 14:23 | CASEMGMT ---
Addendum entered by Corine Morton 01/12/25 15:37: Social Work- SW faxed discharge documentation to [facility] ZECHARIAH Guerrier. Original Note: Social Work Level of Care has been obtained.? Physician updated and pt is ready for discharge today.? PASRR completed in [facility]. DAI met with pt and pt spouse and they are agreeable to discharge plan as stated above.?DCA and bedside nurse notified of discharge. remote encoding operations supervisor time of 5:30PM via [facility]. Pt spouse updated and provided with printed directions to facility. Disposition:[facility], skilled level of care under convalescent stay. ZECHARIA[facility] Guerrier
--- NOTE | 2025-01-12 14:31 | CASEMGMT ---
Discharge orders, signed med list, and transport time sent to [facility]. Physicians will transport pt by cot at 5:30p. Nursing and SW updated. SW to updated pt and her . Larissa Rodrigues DC Planning Asst.
[2025-01-12 16:06] VITALS: BP 94/54; PULSE 95; RESP 18; TEMP 36.8; O2SAT 95
--- NOTE | 2025-01-12 16:21 | NURSING ---
Report called to Alida at [facility].
[2025-01-12] MEDS: Donepezil HCl 5 MG Tablet PO (20:40)
[2025-01-12] MEDS: Mirtazapine 15 MG Tablet 7.5 MG PO (20:40)
[2025-01-12 20:47] VITALS: BP 135/71; PULSE 88
== END 2025-01-12 21:32 | disposition skilled nursing facility (03) ==
LOC: ED 05:21 → MS3 05:24
PROVIDERS: Admitting Provider Internal Medicine; Emergency Provider Emergency Medicine; PCP Family Medicine; Visit Provider Internal Medicine
DX: R53.81 Other malaise (principal); F03.90 Unspecified dementia, unspecified severity, without behavioral disturbance, psychotic disturbance, mood disturbance, and anxiety; D72.829 Elevated white blood cell count, unspecified; E78.5 Hyperlipidemia, unspecified; I10 Essential (primary) hypertension; K21.9 Gastro-esophageal reflux disease without esophagitis; W01.0XXD Fall on same level from slipping, tripping and stumbling without subsequent striking against object, subsequent encounter; R53.1 Weakness; S42.325D Nondisplaced transverse fracture of shaft of humerus, left arm, subsequent encounter for fracture with routine healing; R26.89 Other abnormalities of gait and mobility; Z79.02 Long term (current) use of antithrombotics/antiplatelets; I25.10 Atherosclerotic heart disease of native coronary artery without angina pectoris; R09.02 Hypoxemia; E87.6 Hypokalemia; D64.9 Anemia, unspecified; E03.9 Hypothyroidism, unspecified; Z79.82 Long term (current) use of aspirin; Z79.899 Other long term (current) drug therapy; Z79.890 Hormone replacement therapy; R29.6 Repeated falls; F17.200 Nicotine dependence, unspecified, uncomplicated; G62.9 Polyneuropathy, unspecified
CPT/HCPCS: 36415; 70450; 71045; 72125; 72170; 74176; 80048; 80053; 81001; 82274; 82607; 82746; 83735; 84100; 84443; 85025; 87631; 93005; 94668; 96365; 96366; 96368; 97116; 97162; 97166; 97530; 97535; 99221; 99285; A4216; G0378

== ENCOUNTER → 2025-01-13 05:00 | Outpatient (REF) | payer MEDICARE, OTHER, MEDICAID, SELFPAY ==
[2025-01-13 09:09] LABS: Absolute Neutrophil Count 6.5 X10^3/uL (2.0-7.7); Basophil# 0.06 X10^3/uL; Basophil% 0.6 % (0-1); Eosinophil# 0.19 X10^3/uL; Eosinophils% 1.9 % (0-5); Hematocrit 31.5 % (37-47); Hemoglobin 9.7 g/dL (12.0-15.0); Lymphocyte % 16.1 % (19-41); Mean Corp Hgb Conc 30.8 g/dL (32-36); Mean Corpuscular Hgb 26.6 pg (27.0-32.0); Mean Corpuscular Volume 86.3 fL (81-99); Mean Platelet Vol. 10.4 fl (6.2-12.0); Monocyte# 1.36 X10^3/uL; Monocyte% 13.7 % (0-10); NRBC Flagged by Analyzer 0 % (0-5); Neutrophil # 6.52 X10^3/uL (2.7-7.7); Neutrophil % 65.8 % (47-70); Platelet Count 431 K/mm3 (150-450); RBC Distribution Width CV 16.4 % (11.6-14.6); RBC Distribution Width SD 50.6 fl (35.1-43.9); Red Blood Count 3.65 M/mm3 (4.2-5.4); White Blood Count 9.9 K/mm3 (4.4-11.0)
[2025-01-13 09:50] LABS: Anion Gap 11 (5-15); BUN 17 mg/dL (7-18); BUN/Creat Ratio 19.5 RATIO (10-20); Calcium,Total 9.2 mg/dL (8.5-10.1); Chloride 104 mmol/L (98-107); Cholesterol 91 mg/dL (200); Creatinine, Serum 0.87 mg/dL (0.55-1.02); EST Glomerular Filtration Rate 66 mL/min (>60); Est Glom Filt Rate - Afr Amer 80 mL/min (>60); Glucose 87 mg/dL (74-106); High Density Lipoprotein 36 mg/dL; Magnesium 1.6 mg/dL (1.6-2.6); Sodium Level 134 mmol/L (136-145); Triglycerides 113 mg/dL; Very Low Density Lipoprotein 23 mg/dL (5-40)
[2025-01-13 11:34] LABS: Vitamin B12 > 2000 pg/mL (211-911)
[2025-01-13 14:26] LABS: Vitamin D,25 Hydroxy 115.6 ng/mL
== END ==
LOC: OLS.SW 05:00
PROVIDERS: PCP Family Medicine; Visit Provider Internal Medicine
DX: Z02.2 Encounter for examination for admission to residential institution (principal)
CPT/HCPCS: 36415; 80048; 80061; 82306; 82607; 83735; 84443; 85025

== ENCOUNTER → 2025-01-17 05:00 | Outpatient (REF) | payer MEDICARE, OTHER, MEDICAID, SELFPAY ==
[2025-01-17 09:41] LABS: Hematocrit 29.3 % (37-47); Hemoglobin 9.1 g/dL (12.0-15.0); Mean Corp Hgb Conc 31.1 g/dL (32-36); Mean Corpuscular Hgb 27.3 pg (27.0-32.0); Mean Platelet Vol. 10.5 fl (6.2-12.0); Platelet Count 509 K/mm3 (150-450); RBC Distribution Width CV 16.9 % (11.6-14.6); RBC Distribution Width SD 52.6 fl (35.1-43.9); Red Blood Count 3.33 M/mm3 (4.2-5.4); White Blood Count 9.6 K/mm3 (4.4-11.0)
[2025-01-17 21:19] LABS: Anion Gap 10 (5-15); BUN 32 mg/dL (7-18); BUN/Creat Ratio 33.7 RATIO (10-20); Calcium,Total 8.9 mg/dL (8.5-10.1); Chloride 104 mmol/L (98-107); Creatinine, Serum 0.95 mg/dL (0.55-1.02); EST Glomerular Filtration Rate 59 mL/min (>60); Est Glom Filt Rate - Afr Amer 72 mL/min (>60); Ferritin 88 ng/mL (8-252); Glucose 92 mg/dL (74-106); Iron 42 ug/dL (50-170); Magnesium 1.4 mg/dL (1.6-2.6); Potassium 4.6 mmol/L (3.5-5.1); Sodium Level 135 mmol/L (136-145)
== END ==
LOC: OLS.SW 05:00
PROVIDERS: PCP Family Medicine; Visit Provider Internal Medicine
DX: E87.6 Hypokalemia (principal); D72.829 Elevated white blood cell count, unspecified
CPT/HCPCS: 36415; 80048; 82728; 83540; 83735; 85027

== ENCOUNTER → 2025-01-20 | Outpatient (REF) | payer MEDICARE, OTHER, MEDICAID, SELFPAY ==
[2025-01-20 08:34] LABS: Hematocrit 31.6 % (37-47); Hemoglobin 9.8 g/dL (12.0-15.0); Mean Corpuscular Hgb 27.7 pg (27.0-32.0); Mean Corpuscular Volume 89.3 fL (81-99); Mean Platelet Vol. 10.4 fl (6.2-12.0); Platelet Count 543 K/mm3 (150-450); RBC Distribution Width CV 17.4 % (11.6-14.6); RBC Distribution Width SD 54.4 fl (35.1-43.9); Red Blood Count 3.54 M/mm3 (4.2-5.4); White Blood Count 4.9 K/mm3 (4.4-11.0)
[2025-01-20 10:49] LABS: Anion Gap 10 (5-15); BUN 22 mg/dL (4-19); BUN/Creat Ratio 28.4 RATIO (10-20); Calcium 9.3 mg/dL (7.6-11.0); Carbon Dioxide 23.9 mmol/L (22.0-29.0); Chloride 99 mmol/L (96-108); Creatinine, Serum 0.8 mg/dL (0.6-1.0); EST Glomerular Filtration Rate 73 (>60); Glucose 93 mg/dL (70-99); Magnesium 1.3 mg/dL (1.5-2.2); Potassium 4.8 mmol/L (3.3-5.1); Sodium Level 133 mmol/L (133-145)
== END ==
LOC: OLS.SW 04:00
PROVIDERS: PCP Family Medicine; Referring Provider Internal Medicine; Visit Provider Internal Medicine
DX: I10 Essential (primary) hypertension (principal); I25.10 Atherosclerotic heart disease of native coronary artery without angina pectoris; S42.325D Nondisplaced transverse fracture of shaft of humerus, left arm, subsequent encounter for fracture with routine healing
CPT/HCPCS: 36415; 80048; 83735; 85027

== ENCOUNTER 2025-01-23 10:37 | Emergency (ER) | payer MEDICARE, OTHER, MEDICAID, SELFPAY ==
[2025-01-23] VITALS (10 sets, daily range): BP systolic 98–136; BP diastolic 50–76; PULSE 73–97; RESP 12–17; TEMP 36.2–36.6; O2SAT 92–99; BMI 22.3
--- NOTE | 2025-01-23 10:48 | EKG12_ITS ---
Test Reason : SOB Blood Pressure : */* mmHG Vent. Rate : 87 BPM Atrial Rate : 87 BPM P-R Int : 164 ms QRS Dur : 66 ms QT Int : 344 ms P-R-T Axes : 34 -21 57 degrees QTcB Int : 413 ms Normal sinus rhythm with sinus arrhythmia Inferior infarct , age undetermined Abnormal ECG Confirmed by Kannan Pollock ([id number]), associate entertainment editor SAMIA CASTRO ([id number]) on 01/24/2025 9:44:31 AM Referred By: NICKI/FIDENCIO Confirmed By: Kannan Pollock
--- NOTE | 2025-01-23 10:50 | ED.VIS.DYS ---
HPI History of Present Illness Chief Complaint: Shortness of Breath Narrative Narrative: History and physical limited secondary to dementia. Patient with past medical history of left humerus fracture presents with reported pulse ox in the 80s. Reported at a SNF that she does not wear oxygen usually. In review of her problem list she does have history of COPD. Patient denies any recent fever or chills, no nausea or vomiting, no shortness of breath, no leg swelling. She is not quite sure why she is here. Additionally, on her problem list CHF is listed as well. However, this is not necessarily listed on the retirement paperwork according to the RN. She presents because of the shortness of breath that is reported and low pulse ox in the 80s. [facility] Medical History Syncope and collapse LV dysfunction Anxiety IBS (irritable bowel syndrome) COPD (chronic obstructive pulmonary disease) Hx of myocardial infarction Arrhythmia Chronic CHF (congestive heart failure) Alzheimer's dementia Fx humerus shaft-closed Osteoarthritis Depressed HLD (hyperlipidemia) Coronary artery disease Thyroid disease Ambulatory dysfunction Generalized weakness Hypokalemia GERD (gastroesophageal reflux disease) Elevated BUN Fall Leukocytosis Dementia Hypoxia Hypertension Physical debility Closed fracture of humerus Home Medications ?Medication ?Instructions ?Recorded ?Last Taken ?Type aspirin 81 mg tablet,delayed 81 mg PO DAILY Heart health 01/02/25 Unknown History release clopidogrel 75 mg tablet 75 mg PO DAILY Blood thinner 01/02/25 Unknown History donepezil 5 mg tablet 5 mg PO QHS BP 01/02/25 Unknown History ergocalciferol (vitamin D2) 1,250 1,250 mcg PO FR supplement 01/02/25 Unknown History mcg (50,000 unit) capsule gabapentin 300 mg capsule 300 mg PO BID 01/02/25 Unknown History isosorbide mononitrate 60 mg 60 mg PO DAILY Heart failure 01/02/25 Unknown History tablet,extended release 24 hr levothyroxine 50 mcg tablet 50 mcg PO DAILY 01/02/25 Unknown History losartan 25 mg tablet 25 mg PO DAILY BP 01/02/25 Unknown History mirtazapine 7.5 mg tablet 7.5 mg PO QHS 01/02/25 Unknown History pantoprazole 40 mg tablet,delayed 40 mg PO QHS GERD 01/02/25 Unknown History release cyanocobalamin (vitamin B-12) 1,000 mcg PO DAILY 01/04/25 Unknown History 1,000 mcg tablet acetaminophen 500 mg tablet 1,000 mg (2 x 500 mg) PO Q8 PRN 01/12/25 Unknown Rx Pain 1-5/10 or Fever #10 tabs sucralfate 1 gram tablet 1 g PO BID 01/20/25 Unknown History acetaminophen 325 mg capsule 650 mg PO Q4H PRN fever 01/23/25 Unknown History acetaminophen 650 mg rectal 650 mg NE Q4H 01/23/25 Unknown History suppository albuterol sulfate 0.63 mg/3 mL 0.63 mg continuous nebulization 01/23/25 Unknown History solution for nebulization Q6H PRN shortness of breath or wheezing aluminum-mag hydroxide-simethicone 30 ml PO Q4H PRN indigestion 01/23/25 Unknown History 200 mg-200 mg-20 mg/5 mL oral susp (Mintox) atorvastatin 10 mg tablet 10 mg PO QHS 01/23/25 Unknown History calcium carbonate (Calcium 600) 600 mg PO DAILY 01/23/25 Unknown History guaifenesin 400 mg PO TID 01/23/25 Unknown History guaifenesin 100 mg/5 mL oral 200 mg PO Q4H PRN congestion 01/23/25 Unknown History liquid (Adult Tussin Chest Congestion) magnesium hydroxide 400 mg/5 mL 30 ml PO DAILY PRN constipation 01/23/25 Unknown History oral suspension (Milk of Magnesia) magnesium oxide 400 mg (241.3 mg 400 mg PO QHS 01/23/25 Unknown History magnesium) tablet (MagOx) metoprolol tartrate 50 mg tablet 50 mg PO BID 01/23/25 Unknown History omega 7-rnk-gtx-fish oil 300 1 cap PO DAILY 01/23/25 Unknown History mg-1,000 mg capsule (Fish Oil) tramadol 50 mg tablet 50 mg PO Q8H PRN pain 01/23/25 Unknown History Allergy/AdvReac Type Severity Reaction Status Date / Time codeine AdvReac Intermediate GI Upset Verified 01/20/25 15:03 Family History Mother Cancer Father Heart disease Sister Diabetes COPD (chronic obstructive pulmonary disease) Surgical History Hx of bilateral cataract extraction History of repair of hiatal hernia Hx laparoscopic cholecystectomy History of carpal tunnel release Hx of coronary artery balloon dilation (~06/2016) Social History Smoking Status: Former smoker alcohol intake: never ROS ROS ED ROS Narrative Unable to obtain from patient secondary to dementia. Denies shortness of breath, fever, chills, or cough. Reported low pulse ox in the 80s on 5 L at care home facility. Review of Systems ROS Unobtainable: due to mental condition EXAM Physical Exam Narrative Exam Narrative: Afebrile. Vital signs noted. Nontoxic-appearing. Cardiovascular examination reveals a regular rate and rhythm. Lungs are rhonchorous on auscultation. Mild tachypnea. Abdomen soft and nontender. Positive bowel sounds. Musculoskeletal examination reveals bruising in the posterior aspect of the left upper extremity and left upper extremity held in sling. No overt swelling bilateral lower extremities. Neurologic examination shows her awake, alert, with generalized weakness in the bilateral lower extremities, but is nonfocal, nonlateralizing. Const Vital Signs: 01/23/25 10:39 01/23/25 10:46 01/23/25 10:48 Temperature 97.2 F L Temperature Source Temporal Pulse Rate 97 Respiratory Rate 17 Respiratory Effort Short of Breath Blood Pressure 98/76 Blood Pressure Mean 83 Pulse Ox 95 98 Oxygen Delivery Method Non-Rebreather Nasal Cannula Oxygen Flow Rate (L/min) 3 01/23/25 11:15 01/23/25 11:15 01/23/25 11:39 Temperature Temperature Source Pulse Rate 84 80 Respiratory Rate 16 16 Respiratory Effort Blood Pressure 106/62 Blood Pressure Mean 76 Pulse Ox 96 94 Oxygen Delivery Method Nasal Cannula Nasal Cannula Oxygen Flow Rate (L/min) 2 3 01/23/25 11:46 01/23/25 12:00 01/23/25 13:20 Temperature 97.3 F L 98 F Temperature Source Oral Oral Pulse Rate 78 81 78 Respiratory Rate 14 12 14 Respiratory Effort Blood Pressure 103/50 L 99/53 L 107/59 L Blood Pressure Mean 67 68 75 Pulse Ox 94 92 99 Oxygen Delivery Method Nasal Cannula Nasal Cannula Nasal Cannula Oxygen Flow Rate (L/min) 3 3 3 MDM MDM MDM Narrative Medical decision making narrative: Differential diagnosis includes but not limited to CHF exacerbation versus COPD versus pulmonary embolism versus pneumonia versus viral infection. Comprehensive workup was pursued. Patient placed on a nonrebreather initially. She will be given DuoNeb aerosolized treatment. EKG was obtained and interpreted by myself independently as normal sinus rhythm with sinus arrhythmia at [address] changes. No STEMI. I reviewed her CBC and she has normal white count of 9.7 with hemoglobin stable at 10.2, hematocrit 33.1, platelet count slightly elevated at 483 which may be more of an acute phase reactant. When compared to prior laboratories, her hemoglobin is increasing and she has had thrombophilia the past 2 times. Review of her basic metabolic panel shows sodium slightly low 132 but when compared to previous she has a chronic hyponatremia. CO2 of 23.9, BUN of 26 and normal creatinine 0.95. Glucose appropriately elevated at 121. BNP 764 which is normal for age. I reviewed the radiology report of the CTA and there is no evidence of a pulmonary embolism. It is consistent with emphysematous changes/COPD. There is a suspected cavitary lesion that spiculated in the left upper lobe which is suspicious and may require future biopsy. I did discuss patient with Dr. Laboy for possible observation for her hypoxia. It was felt more that ABG should be obtained and if she is retaining CO2 on top of her dementia that she could be placed on BiPAP and admitted, however, in review of the ABG she has a pH of 7.426 with pCO2 of 45 and pO2 of 59.2. As she does not really have an infectious process on the CTA/no pneumonia I do not feel she needs antibiotics. Her respiratory swabs are negative for COVID, influenza, and RSV. She was given Solu-Medrol here and she will be returned to the care home facility on oxygen and for prednisone burst for 7 days starting tomorrow. Disposition is discharged in stable condition. History & Record Review Discussion w/independent historian: Unable to obtain Additional record(s) reviewed:: Prior labs Lab Data Attestation: I reviewed the patient's lab results. Labs: Laboratory Results - last 24 hr 01/23/25 10:58 WBC 9.7 RBC 3.68 L Hgb 10.2 L Hct 33.1 L MCV 89.9 MCH 27.7 MCHC 30.8 L RDW Std Deviation 56.1 H RDW Coeff of Daonis 17.3 H Plt Count 483 H MPV 10.5 Immature Gran % (Auto) 0.300 Neut % (Auto) 70.5 H Lymph % (Auto) 16.6 L [place] % (Auto) 11.8 H Eos % (Auto) 0.3 Baso % (Auto) 0.5 Absolute Neuts (auto) 6.8 Absolute Lymphs (auto) 1.61 Nucleated RBC % 0 Sodium 132 L Potassium 5.1 Chloride Direct 96 Carbon Dioxide 23.9 Anion Gap 12 BUN 26 H Creatinine 0.95 Estim Creat Clear Calc 31.10 L Est GFR (MDRD) Non-Af 59 L BUN/Creatinine Ratio 27.5 H Glucose 121 H Calcium 9.6 NT pro BNP II 764 ABG Data ABG results: ABG 01/23/25 13:13 Specimen Type ART Sample Site R Radial pH 7.43 Bicarbonate Actual 29.6 H Total CO2 31 Base Excess 5 H O2 Saturation 91 L O2 % 3.0 ABG pCO2 45.0 ABG pO2 59 L Ignacio Test Positive O2 Delivery Device Cannula Vent Mode Not entered Radiography CTA PE Study: No Evidence of PE and No Evidence of Dissection Diagnostic Testing: Clinical Impression(s) from Imaging Studies Chest CTA 01/23/25 11:25 IMPRESSION: 1. No CT evidence of acute pulmonary embolism. 2. Mild diffuse emphysematous changes 3. Left upper lobe spiculated cavitary lesion suspicious for primary neoplasm. 4. Large hiatal hernia One or more dose reduction techniques were used (e.g., Automated exposure control, adjustment of the mA and/or kV according to patient size, use of iterative reconstruction technique). [facility] Discussion w/another healthcare provider: Hospitalist Discharge Plan Triage Chief Complaint: Shortness of Breath ED Provider: Frederic Garcia Dx/Rx/DC Orders Clinical Impression: COPD (chronic obstructive pulmonary disease), Hypoxia, Cavitary lesion of lung Instructions: Chest Lung problems Surg Dx, COPD Meds, ED COPD Flare Prescriptions: No Action sucralfate 1 gram tablet 1 g PO BID donepezil 5 mg tablet 5 mg PO QHS clopidogrel 75 mg tablet 75 mg PO DAILY aspirin 81 mg tablet,delayed release (DR/EC) 81 mg PO DAILY ergocalciferol (vitamin D2) 1,250 mcg (50,000 unit) capsule 1,250 mcg PO FR isosorbide mononitrate 60 mg tablet extended release 24 hr 60 mg PO DAILY levothyroxine 50 mcg tablet 50 mcg PO DAILY pantoprazole 40 mg tablet,delayed release (DR/EC) 40 mg PO QHS losartan 25 mg tablet 25 mg PO DAILY gabapentin 300 mg capsule 300 mg PO BID Patient Comments: [NO ORIGINAL SIG] mirtazapine 7.5 mg tablet 7.5 mg PO QHS cyanocobalamin (vitamin B-12) 1,000 mcg tablet 1,000 mcg PO DAILY acetaminophen 500 mg tablet 1,000 mg PO Q8 PRN (Reason: Pain 1-5/10 or Fever) Qty: 10 0RF Rx Instructions: For pain albuterol sulfate 0.63 mg/3 mL solution for nebulization 0.63 mg continuous nebulization Q6H PRN (Reason: shortness of breath or wheezing) Patient Comments: [NO ORIGINAL SIG] omega 1-mlb-xba-fish oil [Fish Oil] 300-1,000 mg capsule 1 cap PO DAILY tramadol 50 mg tablet 50 mg PO Q8H PRN (Reason: pain) magnesium oxide [MagOx] 400 mg (241.3 mg magnesium) tablet 400 mg PO QHS calcium carbonate [Calcium 600] 600 mg calcium (1,500 mg) tablet 600 mg PO DAILY metoprolol tartrate 50 mg tablet 50 mg PO BID atorvastatin 10 mg tablet 10 mg PO QHS guaifenesin 400 mg PO TID guaifenesin [Adult Tussin Chest Congestion] 100 mg/5 mL liquid 200 mg PO Q4H PRN (Reason: congestion) acetaminophen 325 mg capsule 650 mg PO Q4H PRN (Reason: fever) magnesium hydroxide [Milk of Magnesia] 400 mg/5 mL suspension 30 ml PO DAILY PRN (Reason: constipation) acetaminophen 650 mg suppository 650 mg NE Q4H alum-mag hydroxide-simeth [Mintox] 200-200-20 mg/5 mL suspension 30 ml PO Q4H PRN (Reason: indigestion) Primary Care Provider: Wayne Conde Referrals: Wayne Conde DO [Primary Care Provider] - Activity Restrictions/Additional Instructions: Take steroids as directed. Use oxygen per nasal cannula as needed. Follow-up with your primary care provider regarding the cavitary lesion of your lung that was seen on CT today. Print Language: Romansh Disposition Disposition: Intermediate Facility Discharge [facility]: [facility]
[2025-01-23 11:09] LABS: Absolute Lymphocyte Count 1.61 X10^3/uL (0.83-4.51); Absolute Neutrophil Count 6.8 X10^3/uL (2.0-7.7); Basophil# 0.05 X10^3/uL; Basophil% 0.5 % (0-1); Eosinophil# 0.03 X10^3/uL; Eosinophils% 0.3 % (0-5); Hematocrit 33.1 % (37-47); Hemoglobin 10.2 g/dL (12.0-15.0); Lymphocyte # 1.61 X10^3/ul (0.83-4.51); Lymphocyte % 16.6 % (19-41); Mean Corp Hgb Conc 30.8 g/dL (32-36); Mean Corpuscular Hgb 27.7 pg (27.0-32.0); Mean Corpuscular Volume 89.9 fL (81-99); Mean Platelet Vol. 10.5 fl (6.2-12.0); Monocyte# 1.14 X10^3/uL; Monocyte% 11.8 % (0-10); NRBC Flagged by Analyzer 0 % (0-5); Neutrophil # 6.81 X10^3/uL (2.7-7.7); Neutrophil % 70.5 % (47-70); Platelet Count 483 K/mm3 (150-450); RBC Distribution Width CV 17.3 % (11.6-14.6); RBC Distribution Width SD 56.1 fl (35.1-43.9); Red Blood Count 3.68 M/mm3 (4.2-5.4); White Blood Count 9.7 K/mm3 (4.4-11.0)
[2025-01-23] MEDS: Ipratropium/Albuterol Sulfate 3 ML AMPUL.NEB INHALATION (11:10)
--- NOTE | 2025-01-23 11:25 | CT_ITS ---
PROCEDURE: CTA CHEST W/WO CONTRAST REASON FOR EXAM: Hypoxia TECHNIQUE: CTA imaging of the chest with intravenous contrast. 3D reconstructions. COMPARISON: None. FINDINGS: Hardware: None. Lymph nodes: No mediastinal hilar or axillary lymphadenopathy. Heart: Coronary artery calcifications are noted. RV/LV Diameter Ratio: N/A Thoracic Aorta: No thoracic aortic aneurysm or dissection. Pulmonary Vessels: No evidence of acute pulmonary emboli through the major subsegmental branches. Most Proximal Level of Embolus (if embolus present): N/A Lungs and Airways: Bibasilar atelectasis. Mild diffuse emphysematous changes. Left upper lobe cavitary lesion with spiculations measuring 15 x 16 mm. Pleura: No pleural effusion. No pneumothorax. Upper Abdomen: Visualized portions of the upper abdominal viscera are unremarkable. Bones: Bone windows are unremarkable. Hernia: Large hiatal hernia CT/CTA Chest W/WO Contrast IMPRESSION: 1. No CT evidence of acute pulmonary embolism. 2. Mild diffuse emphysematous changes 3. Left upper lobe spiculated cavitary lesion suspicious for primary neoplasm. 4. Large hiatal hernia One or more dose reduction techniques were used (e.g., Automated exposure contr ol, adjustment of the mA and/or kV according to patient size, use of iterative reconstruction technique). Reading Location: [facility]
[2025-01-23 11:34] LABS: Anion Gap 12 (5-15); BUN 26 mg/dL (4-19); BUN/Creat Ratio 27.5 RATIO (10-20); Calcium 9.6 mg/dL (7.6-11.0); Carbon Dioxide 23.9 mmol/L (22.0-29.0); Chloride 96 mmol/L (96-108); Creatinine, Serum 0.95 mg/dL (0.70-1.20); EST Glomerular Filtration Rate 59 (>60); Glucose 121 mg/dL (70-99); Potassium 5.1 mmol/L (3.3-5.1); Sodium Level 132 mmol/L (133-145)
[2025-01-23 12:11] LABS: Pro- Brain NATRIURETIC PEPTIDE 764 pg/mL (<=1800)
[2025-01-23 13:17] LABS: Allen Test Positive; Base Excess 5 mmol/L (-2 to +2); Bicarbonate 29.6 mmol/L (22-26); Blood Gas Specimen Type ART; Mode Not entered; O2 Delivery Device Cannula; PO2 59 mmHG (75-100); SITE R Radial; SO2 91 % (95-99); Total Carbon Dioxide 31 mmol/L; pH 7.43 (7.35-7.45)
[2025-01-23] MEDS: MethylPREDNISolone 125 MG/2 ML Vial 60 MG IV (13:45)
--- NOTE | 2025-01-23 15:01 | ED.RN ---
REPORT CALLED TO SANTIAGO AT [facility]
== END 2025-01-23 15:39 | disposition skilled nursing facility (03) ==
PROVIDERS: Emergency Provider Emergency Medicine; PCP Family Medicine; Visit Provider Emergency Medicine
DX: R09.02 Hypoxemia (principal); I11.0 Hypertensive heart disease with heart failure; I50.9 Heart failure, unspecified; G30.9 Alzheimer's disease, unspecified; F02.80 Dementia in other diseases classified elsewhere, unspecified severity, without behavioral disturbance, psychotic disturbance, mood disturbance, and anxiety; J44.9 Chronic obstructive pulmonary disease, unspecified; I25.10 Atherosclerotic heart disease of native coronary artery without angina pectoris; R91.1 Solitary pulmonary nodule; Z11.52 Encounter for screening for COVID-19; E78.5 Hyperlipidemia, unspecified; I25.2 Old myocardial infarction; Z79.82 Long term (current) use of aspirin; Z79.02 Long term (current) use of antithrombotics/antiplatelets; Z79.890 Hormone replacement therapy; Z79.899 Other long term (current) drug therapy; Z87.891 Personal history of nicotine dependence
CPT/HCPCS: 36600; 71275; 80048; 82803; 83880; 85025; 87631; 93005; 94640; 96374; 99285; Q9967; A4216

== ENCOUNTER → 2025-01-24 | Outpatient (REF) | payer MEDICARE, OTHER, MEDICAID, SELFPAY ==
[2025-01-24 09:21] LABS: Hematocrit 30.7 % (37-47); Hemoglobin 9.7 g/dL (12.0-15.0); Mean Corp Hgb Conc 31.6 g/dL (32-36); Mean Corpuscular Hgb 27.7 pg (27.0-32.0); Mean Corpuscular Volume 87.7 fL (81-99); Mean Platelet Vol. 10.7 fl (6.2-12.0); Platelet Count 519 K/mm3 (150-450); RBC Distribution Width CV 17.3 % (11.6-14.6); RBC Distribution Width SD 54.9 fl (35.1-43.9); White Blood Count 15.3 K/mm3 (4.4-11.0)
[2025-01-24 09:48] LABS: Anion Gap 11 (5-15); BUN 29 mg/dL (4-19); BUN/Creat Ratio 30.6 RATIO (10-20); Calcium 9.5 mg/dL (7.6-11.0); Carbon Dioxide 26.9 mmol/L (22.0-29.0); Chloride 99 mmol/L (96-108); Creatinine, Serum 0.95 mg/dL (0.70-1.20); EST Glomerular Filtration Rate 58 (>60); Glucose 153 mg/dL (70-99); Magnesium 1.7 mg/dL (1.5-2.2); Potassium 4.9 mmol/L (3.3-5.1); Sodium Level 136 mmol/L (133-145)
== END ==
LOC: OLS.SW 05:00
PROVIDERS: PCP Family Medicine; Visit Provider Internal Medicine
DX: E87.6 Hypokalemia (principal); D72.829 Elevated white blood cell count, unspecified
CPT/HCPCS: 36415; 80048; 83735; 85027

== ENCOUNTER → 2025-01-28 | Outpatient (REF) | payer MEDICARE, OTHER, MEDICAID, SELFPAY ==
[2025-01-28 08:07] LABS: Hematocrit 29.2 % (37-47); Hemoglobin 9.1 g/dL (12.0-15.0); Mean Corp Hgb Conc 31.2 g/dL (32-36); Mean Corpuscular Hgb 27.5 pg (27.0-32.0); Mean Corpuscular Volume 88.2 fL (81-99); Mean Platelet Vol. 10.8 fl (6.2-12.0); Platelet Count 437 K/mm3 (150-450); RBC Distribution Width CV 16.7 % (11.6-14.6); RBC Distribution Width SD 53.5 fl (35.1-43.9); Red Blood Count 3.31 M/mm3 (4.2-5.4); White Blood Count 9.5 K/mm3 (4.4-11.0)
[2025-01-28 08:20] LABS: Magnesium 1.7 mg/dL (1.5-2.2)
== END ==
LOC: OLS.SW 05:00
PROVIDERS: PCP Family Medicine; Visit Provider Internal Medicine
DX: I11.0 Hypertensive heart disease with heart failure (principal); I50.22 Chronic systolic (congestive) heart failure; D72.829 Elevated white blood cell count, unspecified
CPT/HCPCS: 36415; 83735; 85027

== ENCOUNTER → 2025-02-01 | Outpatient (REF) | payer MEDICARE, OTHER, MEDICAID, SELFPAY | LOC: OLS.SW 05:00 | PROVIDERS: PCP Family Medicine; Visit Provider Internal Medicine | DX: R79.9 Abnormal finding of blood chemistry, unspecified (principal) | CPT/HCPCS: 36415; 82306 ==

== ENCOUNTER → 2025-03-24 | Outpatient (REF) | payer MEDICARE, OTHER, MEDICAID, SELFPAY ==
[2025-03-24 08:44] LABS: Hematocrit 32.4 % (37-47); Hemoglobin 10.1 g/dL (12.0-15.0); Mean Corp Hgb Conc 31.2 g/dL (32-36); Mean Corpuscular Hgb 25.6 pg (27.0-32.0); Mean Corpuscular Volume 82.2 fL (81-99); Mean Platelet Vol. 11.6 fl (6.2-12.0); Platelet Count 325 K/mm3 (150-450); RBC Distribution Width CV 15.5 % (11.6-14.6); RBC Distribution Width SD 46.5 fl (35.1-43.9); Red Blood Count 3.94 M/mm3 (4.2-5.4); White Blood Count 6.5 K/mm3 (4.4-11.0)
[2025-03-24 09:06] LABS: Anion Gap 11 (5-15); BUN 11 mg/dL (4-19); BUN/Creat Ratio 12.1 RATIO (10-20); Calcium,Total 9.2 mg/dL (7.6-11.0); Carbon Dioxide 24.4 mmol/L (21.0-32.0); Chloride 103 mmol/L (98-108); Creatinine, Serum 0.92 mg/dL (0.70-1.20); EST Glomerular Filtration Rate 61 (>60); Glucose 85 mg/dL (70-99); Potassium 4.1 mmol/L (3.3-5.1); Sodium Level 138 mmol/L (133-145)
== END ==
LOC: OLS.SW 05:00
PROVIDERS: PCP Family Medicine; Visit Provider Internal Medicine
DX: E03.9 Hypothyroidism, unspecified (principal)
CPT/HCPCS: 36415; 80048; 84443; 85027

== ENCOUNTER 2025-07-02 11:35 | Inpatient (IN) | payer MEDICARE, OTHER, MEDICAID, SELFPAY ==
[2025-07-02 11:38] VITALS: BP 154/96; PULSE 66; RESP 18; TEMP 36.4; O2SAT 98; BMI 20.6
--- NOTE | 2025-07-02 12:01 | EKG12_ITS ---
Test Reason : FALL Blood Pressure : */* mmHG Vent. Rate : 70 BPM Atrial Rate : 70 BPM P-R Int : 166 ms QRS Dur : 68 ms QT Int : 432 ms P-R-T Axes : 51 -6 54 degrees QTcB Int : 466 ms Normal sinus rhythm Inferior infarct (cited on or before 13-Sep-2016) Poor R-wave progression ; consider anterior infarct, lead placement, or normal variant Abnormal ECG Confirmed by SEMAJ GARCIA, YASMIN ([id number]), fashion editor SAMIA CASTRO ([id number]) on 07/04/2025 1:10:51 PM Referred By: Confirmed By: YASMIN CHA MD
--- NOTE | 2025-07-02 12:01 | RAD_ITS ---
PROCEDURE: CHEST 1 VIEW (PORTABLE) 07/02/2025 REASON FOR EXAM: PRE OP FOR HIP FX TECHNIQUE: Frontal view of the chest. COMPARISON: January 23, 2025, January 09, 2025 FINDINGS: Hardware: IVC filter is in place. Surgical clips right upper quadrant from cholecystectomy. Heart: Normal. Aorta is mildly tortuous and atherosclerotic. Lungs: Nodular airspace opacity left upper lobe has decreased in size now is more linear measuring 1.4 by 0.[address] this was a small cavitary lesion. Upper lobe predominant emphysema. Micronodule left lower lobe unchanged. Bones: Degenerative changes are identified within the thoracic spine. RAD/Chest 1 View (Portable) IMPRESSION: Interval decrease in size of the cavitary lung lesion left upper lobe. Small s car remains. Emphysema Reading Location: [id number]
--- NOTE | 2025-07-02 12:13 | ED.VIS.LOWEX ---
HPI History of Present Illness HPI Narrative: 84-year-old female from home today fell injuring her right hip. No prior hip fracture. Denies hitting her head. No LOC. Chief Complaint: Lower Extremity Injury Informant: patient Occured/Mechanism Mechanism/Context: Yes injury and Yes blunt trauma Onset/Context/Timing Onset: Today Context: Sudden Onset Timing: Continuous Quality of Pain: Sharp Current Severity: Severe Maximum Severity: Severe Associated Symptoms Associated Symptoms: Negative for Parasthesia or Weakness Narrative Narrative: 84-year-old female fell today at home injuring her right hip unable to stand on it pain with range of motion and no prior hip surgery. She denies any other complaints. She does not think she hit her head. She is on no blood thinners. Prior similar symptoms: No Recent Illness/Hospitalization: No PFSH PFSH Medical History Syncope and collapse LV dysfunction Anxiety IBS (irritable bowel syndrome) COPD (chronic obstructive pulmonary disease) Hx of myocardial infarction Arrhythmia Chronic CHF (congestive heart failure) Alzheimer's dementia Fx humerus shaft-closed Osteoarthritis Depressed HLD (hyperlipidemia) Coronary artery disease Thyroid disease Ambulatory dysfunction Generalized weakness Hypokalemia GERD (gastroesophageal reflux disease) Elevated BUN Fall Leukocytosis Dementia Hypoxia Hypertension Physical debility Closed fracture of humerus Home Medications ?Medication ?Instructions ?Recorded ?Last Taken ?Type aspirin 81 mg tablet,delayed 81 mg PO DAILY Heart health 01/02/25 Unknown History release donepezil 5 mg tablet 5 mg PO QHS BP 01/02/25 Unknown History isosorbide mononitrate 60 mg 60 mg PO DAILY Heart failure 01/02/25 Unknown History tablet,extended release 24 hr levothyroxine 50 mcg tablet 50 mcg PO DAILY 01/02/25 Unknown History acetaminophen 500 mg tablet 1,000 mg (2 x 500 mg) PO Q8 PRN 01/12/25 Unknown Rx Pain 1-5/10 or Fever #10 tabs acetaminophen 325 mg capsule 650 mg PO Q4H PRN fever 01/23/25 Unknown History acetaminophen 650 mg rectal 650 mg ME Q4H 01/23/25 Unknown History suppository albuterol sulfate 0.63 mg/3 mL 0.63 mg continuous nebulization 01/23/25 Unknown History solution for nebulization Q6H PRN shortness of breath or wheezing calcium carbonate (Calcium 600) 600 mg PO DAILY 01/23/25 Unknown History guaifenesin 400 mg PO TID 01/23/25 Unknown History guaifenesin 100 mg/5 mL oral 200 mg PO Q4H PRN congestion 01/23/25 Unknown History liquid (Adult Tussin Chest Congestion) magnesium hydroxide 400 mg/5 mL 30 ml PO DAILY PRN constipation 01/23/25 Unknown History oral suspension (Milk of Magnesia) metoprolol tartrate 50 mg tablet 50 mg PO BID 01/23/25 Unknown History tramadol 50 mg tablet 50 mg PO Q8H PRN pain 01/23/25 Unknown History aluminum-magnesium hydroxide 225 30 ml PO Q4H PRN 02/16/25 Unknown History mg-200 mg/5 mL oral suspension bisacodyl 10 mg rectal suppository 10 mg ME QDAY PRN 02/16/25 Unknown History dextrose 40 % oral gel (Glucose 10 g PO Q15M PRN 02/16/25 Unknown History Gel) gabapentin 300 mg capsule 300 mg PO BID 02/16/25 Unknown History glucagon HCl 1 mg solution for 1 mg subcut Q20M PRN 02/16/25 Unknown History injection (Glucagon (HCl) Emergency Kit) magnesium oxide 400 mg (241.3 mg 400 mg PO BID 02/16/25 Unknown History magnesium) tablet (MagOx) mineral oil (Fleet Mineral Oil 118 ml ME QDAY PRN 02/16/25 Unknown History enema) mirtazapine 15 mg tablet 15 mg PO QHS 02/16/25 Unknown History omega-3 fatty acids 1,000 mg 1,000 mg PO QDAY 02/16/25 Unknown History capsule pantoprazole 40 mg tablet,delayed 40 mg PO QHS 02/16/25 Unknown History release Allergy/AdvReac Type Severity Reaction Status Date / Time codeine Allergy Rash Verified 03/09/25 09:40 Family History Mother Cancer Father Heart disease Sister Diabetes COPD (chronic obstructive pulmonary disease) Surgical History Hx of bilateral cataract extraction History of repair of hiatal hernia Hx laparoscopic cholecystectomy History of carpal tunnel release Hx of coronary artery balloon dilation (~06/2016) Social History Smoking Status: Former smoker alcohol intake: never ROS ROS ED ROS Narrative Denies recent illness. Constitutional Constitutional ED: Denies chills or fever(s) Eyes Eyes: Denies blurry vision ENT ENT ED: Denies ear pain Cardiovascular Cardiovascular: Denies chest pain Respiratory/Chest Respiratory/Chest: Denies cough or dyspnea Gastrointestinal Gastrointestinal: Denies abdominal pain Genitourinary Genitourinary ED: Denies dysuria or hematuria Musculoskeletal Musculoskeletal: Denies arthralgias Integumentary Denies abscess or Abrasions Neurologic Neurologic: Denies headache(s) Psychiatric Psychiatric: Denies anxiety or depression Endocrine Endocrinology: Denies polydipsia or polyphagia Hematologic/Lymphatic Hematologic/Lymphatic: Denies easy bleeding or easy bruising Allergic/Immunologic Allergic/Immunologic ED: Denies mouth swelling, tongue swelling or urticaria EXAM Physical Exam Narrative Exam Narrative: 84-year-old female lying in bed vital signs stable afebrile. Complaining of right hip pain. No family present currently. H EENT exam pupils round react to light. Eyes motions are intact. No signs of trauma to her face or scalp nontender no hematoma. C-spine and neck nontender. Lungs clear to auscultation. Heart regular rhythm rate about 65 no murmur. Chest wall ribs nontender. Abdomen soft nontender. Pelvic girdle intact. Right hip shortened internally rotated. Tender to palpation. Unable to do range of motion due to pain. Distal right femur, knee, lower leg ankle and foot nontender. Able to wiggle her toes. Normal dorsi plantarflexion. Normal touch sensation. Upper extremities left lower extremity nontender. Neurologically she is awake and alert. Answering questions following commands. Const Vital Signs: 07/02/25 11:38 07/02/25 14:09 Temperature 97.5 F L Temperature Source Oral Pulse Rate 66 72 Respiratory Rate 18 18 Blood Pressure 154/96 H 116/104 H Blood Pressure Mean 115 108 Pulse Ox 98 92 Oxygen Delivery Method Room Air Room Air Positive well nourished and well developed; Negative for cachectic, contractures or unkempt General Appearance ED: well developed; Negative for unkempt, cachectic or contractures Nutritional Appearance: Negative for cachectic HEENT Reports moist mucous membranes normocephalic and atraumatic Neck full ROM and supple Chest Wall inspection of chest normal and palpation of chest normal Resp normal respiratory effort, no retractions and clear to auscultation bilaterally Cardio regular rate, regular rhythm, S1 normal heart sound, S2 normal heart sound and no murmurs GI non-tender, non-distended and no masses Palpation: soft; Negative for tender, guarding or rebound tenderness present Back/Spine no CVA tenderness Extremity Negative for normal to inspection or full ROM Extremity Narrative: Right hip shortened. Internally rotated. Tender to palpation. Pain with any attempted ranging of motion. Concern for hip fracture. Right foot neurovascularly intact. Neuro oriented x3 and CN's II-XII intact bilaterally Sensorium / Orientation: alert, oriented to person and oriented to time; Negative for oriented to place Motor Exam: strength 5/5 throughout Psych mental status grossly normal Appearance: Negative for unkempt Skin no wounds Lesions: no lesions Rashes: no rashes MDM MDM MDM Narrative Medical decision making narrative: 84-year-old female fall suspected right hip fracture. X-rays and labs. Morphine for pain and Zofran. Will need admitted. History & Record Review Discussion w/independent historian: Patient Additional record(s) reviewed:: Prior inpatient record, Prior outpatient record, Prior ED visit and Prior labs Lab Data Attestation: I reviewed the patient's lab results. Lab results narrative: CBC shows a white count of 8 H&H of 10.5 and 35. Platelets 267. PT/INR of 13 and 1. Electrolytes showed gap 13. Normal BUN of 13 creatinine of 1. Glucose 107. Blood type O+. Chest x-ray chronic changes. Pelvis right hip x-ray shows a right intertrochanteric hip fracture. Labs: Laboratory Results - last 24 hr 07/02/25 07/02/25 12:25 13:15 WBC 8.3 RBC 4.40 Hgb 10.5 L Hct 35.4 L MCV 80.5 L MCH 23.9 L MCHC 29.7 L RDW Std Deviation 54.8 H RDW Coeff of Adonis 18.9 H Plt Count 267 MPV 12.2 H Immature Gran % (Auto) 0.500 Neut % (Auto) 66.6 Lymph % (Auto) 23.3 [place] % (Auto) 8.0 Eos % (Auto) 1.0 Baso % (Auto) 0.6 Absolute Neuts (auto) 5.6 Absolute Lymphs (auto) 1.94 Nucleated RBC % 0 PT 13.3 INR 1.0 Sodium 140 Potassium 3.9 Chloride 103 Carbon Dioxide 22.7 Anion Gap 13 BUN 13 Creatinine 1.07 Estim Creat Clear Calc 27.61 L Est GFR (MDRD) Non-Af 51 L BUN/Creatinine Ratio 11.8 Glucose 107 H Calcium 9.4 Blood Type Cancelled O POSITIVE Antibody Screen Cancelled NEGATIVE Radiography Chest X-Ray - ED: 1 View, Read by ED Physician, Read by Radiologist, Heart, Lungs, Mediastinum, Bony Structures, No Acute Disease and Chronic Changes Diagnostic Testing: Clinical Impression(s) from Imaging Studies Chest X-Ray 07/02/25 12:01 IMPRESSION: Interval decrease in size of the cavitary lung lesion left upper lobe. Small scar remains. Emphysema Reading Location: [facility] Hip/Pelvis X-Ray 07/02/25 13:40 IMPRESSION: Right intertrochanteric fracture. Mild displacement. Reading Location: [facility] Chest x-ray, portable, single view, interpreted by myself and radiologist. Shows normal cardiac silhouette mediastinum. Chronic changes no acute process. Pelvis and right hip x-ray interpreted by myself and the radiologist shows a right intratrochanteric hip fracture. Rhythm Strip Rhythm Strip: Sinus Rhythm Rate: 70 Ectopy: None EKG Initial EKG: Attestation: I personally reviewed and interpreted this EKG as follows: Interpretation: Sinus Rhythm and No Acute Injury Pattern Comments: Normal sinus rhythm rate of 70 no acute signs of UT or ischemia. Discharge Plan Triage Chief Complaint: Lower Extremity Injury ED Provider: Jase Jensen Dx/Rx/DC Orders Clinical Impression: Fall, Closed fracture of right hip, History of hypertension Prescriptions: No Action aluminum-magnesium hydroxide 225-200 mg/5 mL suspension 30 ml PO Q4H PRN bisacodyl 10 mg suppository 10 mg ME QDAY PRN omega-3 fatty acids 1,000 mg capsule 1,000 mg PO QDAY mineral oil [Fleet Mineral Oil] Enema 118 ml ME QDAY PRN Rx Instructions: discard any unused portion glucagon HCl [Glucagon (HCl) Emergency Kit] 1 mg recon soln 1 mg subcut Q20M PRN Rx Instructions: until target blood sugar attained dextrose [Glucose Gel] 40 % gel 10 g PO Q15M PRN Rx Instructions: until symptoms of low blood sugar are controlled mirtazapine 15 mg tablet 15 mg PO QHS pantoprazole 40 mg tablet,delayed release (DR/EC) 40 mg PO QHS gabapentin 300 mg capsule 300 mg PO BID donepezil 5 mg tablet 5 mg PO QHS aspirin 81 mg tablet,delayed release (DR/EC) 81 mg PO DAILY isosorbide mononitrate 60 mg tablet extended release 24 hr 60 mg PO DAILY levothyroxine 50 mcg tablet 50 mcg PO DAILY acetaminophen 500 mg tablet 1,000 mg PO Q8 PRN (Reason: Pain 1-04/02 or Fever) Qty: 10 0RF Rx Instructions: For pain albuterol sulfate 0.63 mg/3 mL solution for nebulization 0.63 mg continuous nebulization Q6H PRN (Reason: shortness of breath or wheezing) Patient Comments: [NO ORIGINAL SIG] tramadol 50 mg tablet 50 mg PO Q8H PRN (Reason: pain) calcium carbonate [Calcium 600] 600 mg calcium (1,500 mg) tablet 600 mg PO DAILY metoprolol tartrate 50 mg tablet 50 mg PO BID guaifenesin 400 mg PO TID guaifenesin [Adult Tussin Chest Congestion] 100 mg/5 mL liquid 200 mg PO Q4H PRN (Reason: congestion) acetaminophen 325 mg capsule 650 mg PO Q4H PRN (Reason: fever) magnesium hydroxide [Milk of Magnesia] 400 mg/5 mL suspension 30 ml PO DAILY PRN (Reason: constipation) acetaminophen 650 mg suppository 650 mg ME Q4H magnesium oxide [MagOx] 400 mg (241.3 mg magnesium) tablet 400 mg PO BID Primary Care Provider: Wayne Conde Referrals: Wayne Conde DO [Primary Care Provider] - Print Language: Khmer Disposition Disposition: Acute Care Hospital [facility]
--- OUTSIDE RECORDS SUMMARY | 2025-07-02 12:21 | XMS RPT_ITS | CCD ---
Author Organization [facility] Care Team Providers Care Sr. Logistics Analyst Name Role Phone EMI, GAL E Unavailable Unavailable EMI, GAL E Unavailable Unavailable EMI, GAL Unavailable Unavailable EMI, GAL Unavailable Unavailable Petrilla, Wayne Unavailable Unavailable EMI, GAL Unavailable Unavailable EMI, GAL Unavailable Unavailable Petrilla, Wayne Unavailable Unavailable Petrilla, Wayne F Primary Care Provider Petrilla DO, Wayne F Primary Care Provider Petrilla DO, Wayne F Primary Care Provider Petrilla DO, Wayne F Primary Care Provider Petrilla DO, Wayne F Primary Care Provider [phone] Frederic Garcia MD Emergency Provider Dr. Wayne Conde DO Primary Care Provider Miquel GARCIA, Dr. Fischer Admit Provider Dr. Aaliyah Lafleur MD Other Provider Dr. Priyank Bauer DO Attending Provider Dr. Priyank Bauer DO Other Provider Dr. Jaxson cSott DO Emergency Provider de Dr. Maynor Cox DO Admit Provider Unavail able Dr. Maynor Costa DO Attending Provider Unav ailable Dr. Maynor Costa DO Other Provider Unavail able Dr. Vincent Cool DO Other Provider Dr. Tan Triplett MD Attending Provider Dr. Tan Triplett MD Other Provider Mak GARCIA, Dr. Stern Attending Provider Unavailrosina Corado MD, Dr. Stern Referring Provider Unavailrosina Garcia MD, Frederic Attending Provider Dr. Wayne Conde DO Referring Provider Tomasz SINGEING TORCH OPERATOR-C, Jennifer Attending Provider Araceli GARCIA, Dr. Morel Attending Provider [phone] Maynor Costa Admitting Unavailable Maynor Costa Consulting Unavailable Petrilla, Wayne Primary Care Unavailable Tan Triplett Attending Unavailable Vincent Cool Consulting Unavailable Tan Triplett Consulting Unavailable Petrilla, Wayne Primary Care Unavailable Aaliyah Lafleur Attending Unavailable Aaliyah Lafleur Consulting Unavailable Aaliyah Lafleur Admitting Unavailable Frederic Garcia Attending Unavailable Petrilla, Wayne Primary Care Unavailable Priyank Bauer Attending Unavailable Priyank Bauer Unavailable Maynor Costa Attending Unavailable Maynor Costa Consulting Unavailable Petrilla, Wayne Primary Care Unavailable Maynor Costa Admitting Unavailable Vincent Cool Consulting Unavailable Jennifer Tolbert NP Attending Unavailable Petrilla, Wayne Primary Care Unavailable Petrilla, Wayne Referring Unavailable Adriel Charles Attending Unavailable Petrilla, Wayne Primary Care Unavailable Petrilla, Wayne Referring Unavailable Petrilla, Wayne Primary Care Unavailable Gudla Leena GARCIA Attending Unavailable Gudla Leena GARCIA Attending Unavailable Petrilla, Wayne Primary Care Unavailable Petrilla, Wayne Primary Care Unavailable Aaliyah Lafleur Consulting Unavailable Priyank Bauer Attending Unavailable Aaliyah Lafleur Admitting Unavailable Maynor Costa Consulting Unavailable Maynor Costa Admitting Unavailable Petrilla, Wayne Primary Care Unavailable Tan Triplett Attending Unavailable Vincent Cool Consulting Unavailable Petrilla, Wayne Primary Care Unavailable Gudla Leena GARCIA Attending Unavailable Petrilla, Wayne Primary Care Unavailable Gudla Leena GARCIA Attending Unavailable Petrilla, Wayne Primary Care Unavailable Gudla Leena GARCIA Attending Unavailable Petrilla, Wayne Primary Care Unavailable Gudla Leena GARCIA Attending Unavailable Petrilla, Wayne Primary Care Unavailable Gurwinderdla Leena GARCIA Referring Unavailable Gudla Leena GARCIA Attending Unavailable PETRILLA, WAYNE Attending Unavailable PETRILLA, WAYNE Primary Care Unavailable WAYNE CONDE Attending Unavailable WAYNE CONDE Primary Care Unavailable Allergies Allergy Classification Reported Allergen(s) Allergy Type Date of Onset Reaction(s) Facility Opioid Agonists (2 sources) Codeine Drug Allergy 03-03-2006 [facility] (20 sources) codeine; Translations: [CODEINE] Drug Allergy 03-03-2006 Royce SORIANO [facility] Other [place] [facility] Medications Current Medications Medication Drug Class(es) Dates Sig (Normalized) Sig (Original) acetaminophen 325 mg oral capsule (20 sources) Start: 01-23-2025 take 2 capsules by mouth every four hours as needed for fever Acetaminophen 325 mg capsule Active 650 mg PO Q4H as needed for fever January 23, 2025 1:00am Start: 01-23-2025 Acetaminophen 650 mg suppository Active 650 mg RC Q4H January 23, 2025 1:00am Start: 01-12-2025 take 1-0.5 tablets b y mouth every eight hours as needed for pain Acetaminophen 500 mg tablet Active 1000 mg PO EVERY 8 HOURS as needed for Pain 1-5/10 or Fever January 12, 2025 1:00am For pain Start: 01-04-2025 End: 01-09-2025 take 2 tablets by mouth every eight hours Acetaminophen 500 mg Tablet Discontinued 1000 mg PO EVERY 8 HOURS 0 January 04, 2025 1:00am January 09, 2025 6:31am Start: 01-21-2024 End: 01-21-2024 take 2 tablets by mouth every eight hours acetaminophen (Tylenol) 325 MG tablet Take 2 tablets (650 mg) by mouth in the morning and 2 tablets (650 mg) at noon and 2 tablets (650 mg) before bedtime. Do all this for 15 doses. 30 tablet 0 01/21/2024 01/21/2024 Discontinued (Stop taking at discharge) Start: 01-19-2024 End: 01-21-2024 take 1 tablet by mouth every eight hours acetaminophen (Tylenol) tablet 650 mg Start: 01-16-2024 End: 01-21-2024 take 1 tablet by mouth every six hours as needed for pain and fever acetaminophen (Tylenol) tablet 650 mg take 2 tablets by mo uth every four to six hours as needed for pain acetaminophen (TYLENOL) 325 MG tablet Take 650 mg by mouth as needed for Pain or Fever (every 4-6hrs prn) 0 Active acetaminophen 325 mg / HYDROcodone bitartrate 5 mg oral tablet (8 sources) Opioid Agonist Start: 04-09-2023 End: 06-08-2023 take 1 tablet by mouth twice daily, then take 1 tablet by mouth once, then take 8 tablets by mouth in the morning, then take 1 tablet by mouth once, then take 8 tablets by mouth in the evening HYDROcodone-acetaminophen ([place]) 5-325 MG tablet Indications: Other osteoarthritis of spine, thoracic region Take 1 tablet by mouth 2 times daily for 60 doses. One q 8 am and one q 8 PM 60 tablet 0 05/09/2023 06/08/2023 Active Start: 09-13-2016 End: 02-16-2025 Hydrocodone-Acetaminophen 1 EACH tablet Discontinued 1 NMA PO EVERY 6 HOURS NEEDED as needed for Pain September 13, 2016 12:00am February 16, 2025 9:18am albuterol 0.21 mg/ml inhalation solution (20 sources) beta2-Adrenergic Agonist Start: 01-23-2025 Albut jacque Sulfate 0.63 mg/3 mL solution for nebulization Active 0.63 mg continuous nebulization EVERY 6 HOURS as needed for shortness of breath or wheezing January 23, 2025 1:00am Start: 01-16-2024 End: 01-21-2024 take 2 puff(s) by inhalation every six hours as needed for wheezing 2 puff, Inhalation, Every 6 hours PRN, wheezing, shortness of breath, Starting on Fri01/16/24 at 1712 Start: 01-09-2023 End: 02-04-2024 take 2 puff(s) by inhalation every six hours as needed for wheezing albuterol 108 (90 Base) MCG/ACT inhaler Inhale 2 puffs every 6 hours as needed for wheezing or shortness of breath. 18 g 5 01/09/2023 02/04/2024 Discontinued (Alternate therapy) Start: 08-18-2017 End: 01-09-2023 take 2 puff(s) by inhalation every six hours as needed for wheezing albuterol sulfate HFA 108 (90 Base) MCG/ACT inhaler Inhale 2 puffs into the lungs every 6 hours as needed for Wheezing or Shortness of Breath 1 Inhaler 5 12/31/2018 Active albuterol sulfate HFA 108 (90 Base) MCG/ACT inhaler (1 source) Start: 02-19-2021 take 2 puff(s) by inhalation every six hours as needed for wheezing albuterol sulfate HFA 108 (90 Base) MCG/ACT inhaler Inhale 2 puffs into the lungs every 6 hours as needed for Wheezing or Shortness of Breath 1 Inhaler 5 02/19/2021 Active Aluminum-Magnesiu m Hydroxide 225-200 mg/5 mL suspension (5 sources) Start: 02-16-2025 take 1 mL by mouth every four hours as needed Aluminum-Magnesi um Hydroxide 225-200 mg/5 mL suspension Active 30 mL PO Q4H as needed February 16, 2025 12:00am aspirin 81 mg delayed release oral tablet (20 sources) Platelet Aggregation Inhibitor, Nonsteroidal Anti-inflammatory Drug Start: 08-01-2023 End: 05-26-2025 take 1 tablet by mouth once daily in the morning Aspirin Low Dose 81 MG EC tablet TAKE 1 TABLET BY MOUTH EVERY MORNING 31 tablet 11 05/26/2025 Active Start: 10-01-2022 End: 01-09-2023 take 1 tablet by mouth once daily in the morning Aspirin Low Dose 81 MG EC tablet Take 1 tablet (81 mg) by mouth every morning. 30 tablet 5 01/09/2023 Active Start: 11-08-2020 aspirin (ASPIR IN LOW DOSE) 81 MG EC tablet TAKE ONE TABLET IN THE MORNING 30 tablet 5 11/08/2020 Active Start: 06-30-2019 aspirin (ASPIR IN LOW DOSE) 81 MG EC tablet TAKE ONE TABLET IN THE MORNING 30 tablet 5 06/30/2019 Active Start: 09-13-2016 End: 02-16-2025 take 1 tablet by mouth once daily Aspirin 81 MG tablet,chewable Discontinued 81 mg PO DAILY@0800 September 13, 2016 12:00am February 16, 2025 9:20am bisacodyl 10 mg rectal suppository (5 sources) Stimulant Laxative Start: 02-16-2025 Bisacodyl 10 mg suppository Active 10 mg RC daily as needed February 16, 2025 12:00am calcium carbonate 1500 mg oral tablet (5 sources) Start: 01-23-2025 take 1 tablet by mouth once daily Calcium Carbonate (Calcium 600) 600 mg calcium (1,500 mg) tablet Active 600 mg PO DAILY January 23, 2025 1:00am clopidogrel 75 mg oral tablet (20 sources) [id number] Platelet Inhibitor Start: 04-09-2023 End: 03-09-2025 clopidogrel (Plavix) 75 MG tablet TAKE ONE TABLET AT 5PM 90 tablet 1 09/22/2024 Active Start: 2022 End: 03-26-2023 clopidogrel (Plavix) 75 MG t ablet TAKE ONE TABLET AT 5PM 30 tablet 5 01/09/2023 Active Start: 11-08-2020 clopidogrel (P LAVIX) 75 MG tablet TAKE ONE TABLET AT 5PM 30 tablet 5 11/08/2020 Active Start: 06-30-2019 clopidogrel (P LAVIX) 75 MG tablet TAKE ONE TABLET AT 5PM 30 tablet 5 06/30/2019 Active docosahexaenoic acid 120 mg / eicosapentaenoic acid 180 mg oral capsule (20 sources) Start: 07-28-2024 End: 11-30-2024 take 3 capsules by mouth once daily in the morning omega-3 (Fish Oil) 1000 MG capsule TAKE 3 CAPSULES BY MOUTH EVERY MORNING 93 capsule 11 11/30/2024 Active Start: 10-23-2023 End: 07-28-2024 omega-3 (Fish Oil) 1000 MG c apsule TAKE THREE CAPSULES IN THE MORNING 90 capsule 1 05/26/2024 07/28/2024 Discontinued Start: 07-11-2022 End: 01-09-2023 omega-3 (Fish Oil) 1000 MG c apsule TAKE THREE CAPSULES IN THE MORNING 30 capsule 5 01/09/2023 Active donepezil hydrochloride 5 mg oral tablet (20 sources) Start: 04-09-2023 End: 10-30-2025 take 1 tablet by mouth once daily donepezil (Aricept) 5 MG tablet Take 1 tablet (5 mg) by mouth Nightly. 90 tablet 1 05/03/2025 10/30/2025 Active Start: 2022 End: 02-08-2023 take 1 tablet by mouth once daily donepezil (Aricept) 5 MG tablet Take 1 tablet (5 mg) by mouth Nightly. 30 tablet 5 01/09/2023 02/08/2023 Active Start: 02-07-2021 take 1 tablet by quinn th once daily donepezil (ARICEPT) 5 MG tablet Indications: Memory loss Take 1 tablet by mouth nightly 30 tablet 5 02/07/2021 Active 120 actuat fluticasone propionate 0.22 mg/actuat metered dose inhaler (20 sources) Corticosteroid Start: 02-04-2024 End: 09-22-2024 take 1 puff(s) by inhalation twice daily fluticasone (Flovent) 220 MCG/ACT inhaler Decrease to one puff BID 12 g 5 09/22/2024 Active Start: 01-16-2024 End: 01-21-2024 take 2 puff(s) by mouth twice daily 2 puff, Inhalation, 2 times daily, First dose on Fri01/16/24 at 2100, Rinse mouth with water after use to reduce aftertaste and incidence of candidiasis. Do not swallow. Start: 2022 End: 01-09-2023 take 2 puff(s) by inhalation in the morning fluticasone (Flovent) 220 MCG/ACT inhaler Inhale 2 puffs in the morning and 2 puffs before bedtime. 12 g 5 2022 01/09/2023 Discontinued (Reorder) Start: 12-30-2017 End: 06-30-2028 take 2 puff(s) by inhalation twice daily fluticasone (Flovent) 220 MCG/ACT inhaler Inhale 2 puffs 2 times daily. 12 g 5 01/09/2023 01/09/2024 Active gabapentin 300 mg oral capsule (20 sources) Anti-epileptic Agent Start: 01-19-2024 End: 01-21-2024 gabapentin (Neurontin) capsule 200 mg Start: 10-19-2023 End: 05-03-2025 take 1 capsule by mouth twice daily gabapentin (Neurontin) 300 MG capsule TAKE 1 CAPSULE BY MOUTH TWICE DAILY 180 capsule 05/03/2025 Active Start: 04-09-2023 End: 07-18-2023 gabapentin (Neurontin) 300 M G capsule Decrease to one bid 180 capsule 0 07/18/2023 Active Start: 02-09-2021 End: 03-20-2030 take 2 capsules by mouth twice daily gabapentin (Neurontin) 300 MG capsule Take 2 capsules (600 mg) by mouth 2 times daily for 120 doses. 120 capsule 2 01/09/2023 03/10/2023 Active Start: 06-30-2019 End: 08-07-2028 gabapentin (NEURONTIN) 300 M G capsule Decrease to one cap three times a day 90 capsule 5 06/30/2019 08/07/2028 Active Start: 09-13-2016 End: 02-16-2025 take 1 capsule by mouth four times daily Gabapentin 300 MG capsule Discontinued 300 mg PO 4 TIMES DAILY September 13, 2016 12:00am February 16, 2025 9:20am Glucagon Hcl (Glucagon (Hcl) Emergency Kit) 1 mg recon soln (5 sources) Start: 02-16-2025 Glucagon Hcl ( Glucagon (Hcl) Emergency Kit) 1 mg recon soln Active 1 mg SC Q20M as needed February 16, 2025 12:00am until target blood sugar attained glucose 0.4 mg/mg oral gel (5 sources) Start: 02-16-2025 Dextrose (Gluc ose Gel) 40 % gel Active 10 g PO Q15M as needed February 16, 2025 12:00am until symptoms of low blood sugar are controlled guaiFENesin 400 mg oral tablet (20 sources) Start: 01-23-2025 take 200 mg by mouth every four hours as needed for congestion Guaifenesin (Adult Tussin Chest Congestion) 100 mg/5 mL liquid Active 200 mg PO Q4H as needed for congestion January 23, 2025 1:00am Start: 01-23-2025 take 400 mg by mouth three times daily guaifenesin Active 400 mg PO THREE TIMES A DAY January 23, 2025 1:00am Start: 01-03-2025 End: 01-23-2025 take 1 tablet by mouth twice daily guaiFENesin (Mucinex) 600 MG 12 hr tablet Take 1 tablet (600 mg) by mouth 2 times daily. Do not crush, chew, or split. 180 tablet 1 01/03/2025 Active Start: 08-01-2023 End: 11-09-2024 take 2 tablets by mouth twice daily guaiFENesin (Mucinex) 600 MG 12 hr tablet Take 2 tablets (1,200 mg) by mouth 2 times daily. 120 tablet 5 07/12/2024 11/09/2024 Active Start: 07-11-2022 End: 05-26-2023 take 2 tablets by mouth twice daily guaiFENesin (Mucinex) 600 MG 12 hr tablet Take 2 tablets (1,200 mg) by mouth 2 times daily. 60 tablet 5 01/09/2023 Active Start: 02-09-2021 take 2 tablets by mo uth twice daily guaiFENesin (MUCINEX) 600 MG extended release tablet Take 2 tablets by mouth 2 times daily 60 tablet 1 02/09/2021 Active End: 01-03-2025 guaiFENesin (Mucinex) 600 MG 12 hr tablet Take 1,200 mg by mouth 2 times daily. Do not crush, chew, or split. 01/03/2025 Discontinued (Reorder) guaiFENesin (MUC INEX) 600 MG extended release tablet Take 1,200 mg by mouth 2 times daily 0 Active 24 hr isosorbide mononitrate 60 mg extended release oral tablet (20 sources) Nitrate Vasodilator Start: 04-09-2023 End: 05-03-2025 take 1 tablet by mouth once daily in the morning isosorbide mononitrate ER (Imdur) 60 MG 24 hr tablet Take 1 tablet (60 mg) by mouth every morning. 90 tablet 1 05/03/2025 Active Start: 2022 End: 03-26-2023 take 1 tablet by mouth once daily in the morning isosorbide mononitrate ER (Imdur) 60 MG 24 hr tablet Take 1 tablet (60 mg) by mouth every morning. 30 tablet 5 01/09/2023 Active Start: 11-08-2020 isosorbide mon onitrate (IMDUR) 30 MG extended release tablet TAKE ONE TABLET IN THE MORNING 30 tablet 5 11/08/2020 Active Start: 06-30-2019 isosorbide mon onitrate (IMDUR) 30 MG extended release tablet TAKE ONE TABLET IN THE MORNING 30 tablet 5 06/30/2019 Active levothyroxine sodium 0.05 mg oral tablet (20 sources) l-Thyroxine Start: 01-19-2023 End: 10-30-2025 take 1 tablet by mouth once daily in the morning levothyroxine (Synthroid, Levoxyl) 50 MCG tablet Take 1 tablet (50 mcg) by mouth every morning for 180 doses. 90 tablet 1 05/03/2025 10/30/2025 Active Start: 09-13-2016 End: 02-16-2025 take 1 tablet by mouth once daily Levothyroxine 25 MCG tablet Discontinued 25 ug PO DAILY September 13, 2016 12:00am February 16, 2025 9:18am loratadine 10 mg oral tablet (18 sources) Start: 10-01-2022 End: 02-04-2024 take 1 tablet by mouth once daily in the morning loratadine (Claritin) 10 MG tablet Take 1 tablet (10 mg) by mouth every morning. 30 tablet 5 01/09/2023 Active Start: 11-08-2020 loratadine (CL ARITIN) 10 MG tablet TAKE ONE TABLET IN THE MORNING 30 tablet 5 11/08/2020 Active Start: 06-30-2019 loratadine (CL ARITIN) 10 MG tablet TAKE ONE TABLET IN THE MORNING 30 tablet 5 06/30/2019 Active losartan potassium 25 mg oral tablet (20 sources) Angiotensin 2 Receptor Kiara Start: 01-19-2024 End: 03-09-2025 take 1 tablet by mouth once daily losartan (Cozaar) 25 MG tablet Take 1 tablet (25 mg) by mouth daily. 90 tablet 1 09/22/2024 Active Magnesium Hydroxide (5 sources) Start: 01-23-2025 take 1 mL by mouth once daily as needed for constipation Magnesium Hydroxide (Milk Of Magnesia) 400 mg/5 mL suspension Active 30 mL PO DAILY as needed for constipation January 23, 2025 1:00am magnesium oxide 400 mg oral tablet (10 sources) Start: 01-23-2025 End: 02-16-2025 take 1 tablet by mouth twice daily Magnesium Oxide (Magox) 400 mg (241.3 mg magnesium) tablet Active 400 mg PO TWICE A DAY February 16, 2025 9:16am metoprolol tartrate 50 mg oral tablet (20 sources) beta-Adrenergic Kiara Start: 01-02-2025 End: 01-23-2025 take 1 tablet by mouth twice daily Metoprolol Succinate 50 mg tablet extended release 24 hr Discontinued 50 mg PO TWICE A DAY January 02, 2025 1:00am January 23, 2025 2:09pm Start: 02-04-2024 End: 06-07-2025 take 1 tablet by mouth twice daily metoprolol tartrate (Lopressor) 50 MG tablet Take 1 tablet (50 mg) by mouth 2 times daily. 180 tablet 1 06/07/2025 Active Start: 01-19-2024 End: 05-20-2024 take 1 tablet by mouth three times daily metoprolol tartrate (Lopressor) 50 MG tablet Take 1 tablet (50 mg) by mouth 3 times daily. 90 tablet 3 01/21/2024 02/04/2024 Discontinued Start: 01-18-2024 End: 01-18-2024 metoprolol tartrate (Lopress or) tablet 25 mg Start: 01-17-2024 End: 01-18-2024 take 50 mg by mouth once daily 50 mg, Oral, Daily, Fir st dose on 01/17/24 at 0900, Do not crush or chew. Start: 04-09-2023 End: 01-21-2024 metoprolol succinate XL (Top rol-XL) 50 MG 24 hr tablet Increase to 50 mg q day 90 tablet 1 07/18/2023 01/21/2024 Discontinued (Stop taking at discharge) Start: 2022 End: 01-09-2023 metoprolol succinate XL (Top rol-XL) 50 MG 24 hr tablet Increase to 50 mg q day 30 tablet 5 01/09/2023 Active Start: 11-08-2020 metoprolol suc cinate (TOPROL XL) 25 MG extended release tablet TAKE 1/2 TABLET IN THE MORNING 15 tablet 5 11/08/2020 Active Start: 06-30-2019 metoprolol suc cinate (TOPROL XL) 25 MG extended release tablet TAKE 1/2 TABLET IN THE MORNING 15 tablet 5 06/30/2019 Active mineral oil 1000 mg/ml enema (5 sources) Start: 02-16-2025 Mineral Oil (F leet Mineral Oil) enema Active 118 mL RC daily as needed February 16, 2025 12:00am discard any unused portion mirtazapine 7.5 mg oral tablet (20 sources) Start: 02-16-2025 take 1 tablet by mouth at bedtime Mirtazapine 15 mg tablet Active 15 mg PO AT BEDTIME February 16, 2025 12:00am Start: 04-09-2023 End: 06-07-2025 mirtazapine (Remeron) 7.5 MG tablet Decrease to 7.5 mg at HS 90 tablet 1 06/07/2025 Active Start: 2022 End: 01-09-2023 mirtazapine (Remeron) 7.5 MG tablet Decrease to 7.5 mg at HS 30 tablet 5 01/09/2023 Active Start: 11-08-2020 mirtazapine (R EMERON) 7.5 MG tablet Decrease to 7.5 mg at HS 30 tablet 5 11/08/2020 Active Start: 06-30-2019 mirtazapine (R EMERON) 7.5 MG tablet Decrease to 7.5 mg at HS 30 tablet 5 06/30/2019 Active omega-3 acid ethyl esters (u sp) 1000 mg oral capsule (2 sources) Start: 11-08-2020 omega-3 acid e thyl esters (LOVAZA) 1 g capsule TAKE THREE CAPSULES IN THE MORNING 90 capsule 5 11/08/2020 Active Start: 06-30-2019 omega-3 acid e thyl esters (LOVAZA) 1 g capsule TAKE THREE CAPSULES IN THE MORNING 90 capsule 5 06/30/2019 Active [place]-3 Fatty Acids 1,000 mg capsule (5 sources) Start: 02-16-2025 take 1 capsule by mouth once daily [place]-3 Fatty Acids 1,000 mg capsule Active 1000 mg PO daily February 16, 2025 12:00am pantoprazole 40 mg delayed release oral tablet (20 sources) Proton Pump Inhibitor Start: 04-09-2023 End: 05-03-2025 pantoprazole (ProtoNix) 40 MG EC tablet CHANGE TO ONE EACH EVENING BEFORE BEDTIME 90 tablet 1 05/03/2025 Active Start: 2022 End: 03-26-2023 pantoprazole (ProtoNix) 40 M G EC tablet CHANGE TO ONE EACH EVENING BEFORE BEDTIME 30 tablet 5 01/09/2023 Active Start: 11-08-2020 pantoprazole ( PROTONIX) 40 MG tablet Change to one each evening before bedtime 30 tablet 5 11/08/2020 Active Start: 06-30-2019 pantoprazole ( PROTONIX) 40 MG tablet Change to one each evening before bedtime 30 tablet 5 06/30/2019 Active Start: 09-13-2016 End: 02-16-2025 take 1 tablet by mouth twice daily Pantoprazole 40 MG tablet Discontinued 40 mg PO TWICE A DAY September 13, 2016 12:00am February 16, 2025 9:20am sucralfate 1000 mg oral tablet (20 sources) Aluminum Complex Start: 07-28-2024 End: 09-22-2025 take 1 tablet by mouth before mealtime sucralfate (Carafate) 1 g tablet Take 1 tablet (1 g) by mouth in the morning and 1 tablet (1 g) in the evening. Take before meals. 180 tablet 1 09/22/2024 09/22/2025 Active Start: 06-30-2019 End: 05-04-2024 take 1 tablet by mouth four times daily before mealtime sucralfate (Carafate) 1 g tablet Take 1 tablet (1 g) by mouth 4 times daily (before meals and nightly). 120 tablet 5 01/09/2023 01/09/2024 Active Start: 09-13-2016 End: 02-16-2025 take 1 g by mouth four times daily Sucralfate 1 GM/10 ML suspension Discontinued 1 g PO 4 TIMES DAILY September 13, 2016 12:00am February 16, 2025 9:18am tiotropium 0.018 mg inhalation powder (20 sources) Anticholinergic Start: 08-26-2024 End: 09-22-2024 take 1 capsule by inhalation in the morning tiotropium (Spiriva) [address] 1 capsule (18 mcg) into inhaler and inhale in the morning. 30 capsule 5 09/22/2024 Active Start: 01-17-2024 End: 01-21-2024 take 2 puff(s) by inhalation once daily 2 puff, Inhalation, Daily, First dose on 01/17/24 at 0900 Start: 04-09-2023 End: 02-04-2024 take 1 capsule by inhalation once daily Spiriva HandiHaler [address] 1 capsule (18 mcg) into inhaler and inhale daily. 30 capsule 5 07/18/2023 02/04/2024 Discontinued (Alternate therapy) Start: 01-09-2023 take 1 capsule by in halation once daily Spiriva HandiHaler [address] 1 capsule (18 mcg) into inhaler and inhale daily. 30 capsule 5 01/09/2023 Active Start: 2022 End: 01-09-2023 take 1 capsule by inhalation in the morning Spiriva HandiHaler [address] 1 capsule (18 mcg) into inhaler and inhale in the morning. 30 capsule 5 2022 01/09/2023 Discontinued (Reorder) Start: 11-08-2020 take 1 capsule by in halation once daily tiotropium (SPIRIVA HANDIHALER) 18 MCG inhalation capsule Inhale 1 capsule into the lungs daily 30 capsule 5 11/08/2020 Active Start: 06-14-2019 take 1 capsule by in halation once daily tiotropium (SPIRIVA HANDIHALER) 18 MCG inhalation capsule Inhale 1 capsule into the lungs daily 30 capsule 5 06/14/2019 Active traMADol hydrochloride 50 mg oral tablet (5 sources) Opioid Agonist Start: 01-23-2025 take 1 tablet by mouth every eight hours as needed for pain Tramadol 50 mg tablet Active 50 mg PO Q8H as needed for pain January 23, 2025 1:00am vitamin b12 1 mg oral tablet (20 sources) Vitamin B12 Start: 01-22-2024 End: 09-17-2025 take 1 tablet by mouth once daily cyanocobalamin (Vitamin B-12) 1000 MCG tablet Take 1 tablet (1,000 mcg) by mouth daily. 90 tablet 1 09/22/2024 09/17/2025 Active Start: 01-21-2024 End: 01-21-2024 cyanocobalamin (Vitamin B-12 ) tablet 1,000 mcg Completed/Discontinued Medications Medication Drug Class(es) Dates Sig (Normalized) Sig (Original) Alum-Mag Hydroxide-Simeth (Mintox) 200-200-20 mg/5 mL suspension (5 sources) Start: 01-23-2025 End: 02-16-2025 take 1 mL by mouth every four hours as needed Alum-Mag Hydroxide-Simeth (Mintox) 200-200-20 mg/5 mL suspension Discontinued 30 mL PO Q4H as needed for indigestion January 23, 2025 1:00am February 16, 2025 9:20am atorvastatin 10 mg oral tablet (20 sources) HMG-CoA Reductase Inhibitor Start: 01-23-2025 End: 03-09-2025 take 1 tablet by mouth at bedtime Atorvastatin 10 mg tablet Discontinued 10 mg PO AT BEDTIME January 23, 2025 1:00am March 09, 2025 9:58am Start: 01-02-2025 End: 01-20-2025 Atorvastatin 10 mg tablet Discontinued 80 mg PO AT BEDTIME January 02, 2025 1:00am January 20, 2025 4:03pm Start: 01-19-2024 End: 01-23-2025 take 1 tablet by mouth once daily atorvastatin (Lipitor) 80 MG tablet Take 1 tablet (80 mg) by mouth Nightly. 90 tablet 1 09/22/2024 Active Start: 04-09-2023 End: 01-21-2024 take 10 mg by mouth once daily 10 mg, Oral, Nightly, F irst dose on Fri01/16/24 at 2100 Start: 2022 End: 02-08-2023 take 1 tablet by mouth once daily atorvastatin (Lipitor) 10 MG tablet Take 1 tablet (10 mg) by mouth Nightly for 30 doses. 30 tablet 5 01/09/2023 02/08/2023 Active Start: 11-08-2020 atorvastatin ( LIPITOR) 10 MG tablet TAKE ONE TABLET AT BEDTIME 30 tablet 5 11/08/2020 Active Start: 06-30-2019 atorvastatin ( LIPITOR) 10 MG tablet TAKE ONE TABLET AT BEDTIME 30 tablet 5 06/30/2019 Active atropine sulfate 0.025 mg / diphenoxylate hydrochloride 2.5 mg oral tablet (5 sources) Anticholinergic, Cholinergic Muscarinic Antagonist, Antidiarrheal Start: 09-13-2016 End: 02-16-2025 take 2.5 tablets by mouth once daily Diphenoxylate Hcl/Atropine (Diphenoxylate-Atrop 2.5-0.025) 1 EACH tablet Discontinued 1 NMA PO DAILY September 13, 2016 12:00am February 16, 2025 9:19am benazepril hydrochloride 20 mg oral tablet (5 sources) Angiotensin Converting Enzyme Inhibitor Start: 09-13-2016 End: 02-16-2025 take 1 tablet by mouth once daily Benazepril Hcl (Lotensin) 20 MG tablet Discontinued 20 mg PO DAILY September 13, 2016 12:00am February 16, 2025 9:20am Calcium Carb,Gluc-Mag Gluc,Ox (Calcium Magnesium Caplet) 1 EACH tablet (5 sources) Start: 09-13-2016 End: 02-16-2025 take 1 tablet by mouth once daily Calcium Carb,Gluc-Mag Gluc,Ox (Calcium Magnesium Caplet) 1 EACH tablet Discontinued 1 NMA PO DAILY September 13, 2016 12:00am February 16, 2025 9:20am calcium carbonate 1250 mg / cholecalciferol 200 unt oral tablet (20 sources) Vitamin D Start: 01-02-2025 End: 01-23-2025 Calcium Carbonate-Vitamin D3 ([place] Calcium-Vit D3) 500 mg-5 mcg (200 unit) tablet Discontinued 2 {tbl} PO AT BEDTIME January 02, 2025 1:00am January 23, 2025 1:58pm Start: 02-03-2022 End: 09-22-2024 take 2 tablets by mouth once daily Calcium Carb-Cholecalciferol ([place]yster [place] Calcium w/D) 500-5 MG-MCG tablet Take 2 tablets by mouth daily. 180 tablet 1 09/22/2024 Active Start: 02-03-2022 take 2 tablets by mo uth once daily before breakfast Calcium Carbonate-Vitamin D (calcium-vitamin D) 500-200 MG-UNIT tablet TAKE 2 TABLETS BY MOUTH EVERY MORNING (BEFORE BREAKFAST) 02/03/2022 Active Start: 11-08-2020 take 2 tablets by mo uth once daily before breakfast Calcium Carbonate-Vitamin D ([place] CALCIUM/D) 500-200 MG-UNIT TABS Take 2 tablets by mouth every morning (before breakfast) 60 tablet 5 11/08/2020 Active Start: 06-30-2019 take 2 tablets by mo uth once daily before breakfast Calcium Carbonate-Vitamin D ([place] SHE[place] CALCIUM/D) 500-200 MG-UNIT TABS Take 2 tablets by mouth every morning (before breakfast) 60 tablet 5 06/30/2019 Active [place] 0-Ftn-Rkz-Fish Oil (10 sources) Start: 01-23-2025 End: 02-16-2025 [place] 5-Mcf-Kch-Fish Oil (Fi sh Oil) 300-1,000 mg capsule Discontinued 1 NMA PO DAILY January 23, 2025 1:00am February 16, 2025 9:14am Start: 01-02-2025 End: 01-23-2025 [place] 9-Mtt-Jft-Fish Oil (Fi sh Oil) 300-1,000 mg capsule Discontinued 3 NMA PO DAILY January 02, 2025 1:00am January 23, 2025 2:09pm 0.4 ml enoxaparin sodium 100 mg/ml prefilled syringe (2 sources) Low Molecular Weight Heparin Start: 01-16-2024 End: 01-21-2024 enoxaparin (Lovenox) syringe 40 mg ergocalciferol 1.25 mg oral capsule (20 sources) Provitamin D2 Compound Start: 01-02-2025 End: 02-16-2025 Ergocalciferol (Vitamin D2) 1,250 mcg (50,000 unit) capsule Discontinued 1250 ug PO FR January 02, 2025 1:00am February 16, 2025 9:19am Start: 10-23-2023 End: 09-23-2024 take 1 capsule by mouth every week ergocalciferol (Vitamin D2) 1.25 MG (64051 UT) capsule TAKE 1 CAPSULE BY MOUTH EVERY WEEK ON FRIDAY 5 capsule 11 09/23/2024 Active Start: 01-02-2023 End: 01-09-2023 take 1 capsule by mouth every week ergocalciferol (Vitamin D2) 1.25 MG (68141 UT) capsule TAKE 1 CAPSULE BY MOUTH ONE TIME PER WEEK 4 capsule 5 01/09/2023 Active Start: 06-30-2019 End: 02-14-2030 take 1 capsule by mouth every week ergocalciferol (Vitamin D2) 1.25 MG (54402 UT) capsule TAKE 1 CAPSULE BY MOUTH ONE TIME PER WEEK 12 capsule 3 10/23/2023 Active 250 ml glucose 50 mg/ml / sodium chloride 9 mg/ml injection (2 sources) Start: 01-17-2024 End: 01-19-2024 dextrose 5 % and sodium chloride 0.9 % infusion haloperidol 0.5 mg oral tablet (2 sources) Typical Antipsychotic Start: 01-19-2024 End: 01-21-2024 take 1 tablet by mouth every six hours as needed haloperidol (Haldol) tablet 0.5 mg inositol 100 mg / niacin 400 mg oral capsule (5 sources) Nicotinic Acid Start: 09-13-2016 End: 02-16-2025 Niacin (Inositol Niacinate) (Niacin Flush Free 500 Mg Cap) 400 MG capsule Discontinued 400 mg PO DAILY September 13, 2016 12:00am February 16, 2025 9:18am iopamidol (Isovue-370) 76 % injection 75 mL (2 sources) Start: 01-16-2024 End: 01-16-2024 iopamidol (Isovue-370) 76 % injection 75 mL linseed oil 1000 mg oral capsule (5 sources) Start: 09-13-2016 End: 02-16-2025 take 1 capsule by mouth once daily Flaxseed Oil ([place]-3 Flaxseed Oil) 1,000 MG capsule Discontinued 1000 mg PO DAILY September 13, 2016 12:00am February 16, 2025 9:13am LORazepam 1 mg oral tablet (5 sources) Benzodiazepine Start: 09-13-2016 End: 02-16-2025 take 1 tablet by mouth twice daily Lorazepam 1 MG tablet Discontinued 1 mg PO TWICE A DAY September 13, 2016 12:00am February 16, 2025 9:18am melatonin 3 mg oral tablet (2 sources) Start: 01-19-2024 End: 01-21-2024 melatonin tablet 3 mg [place] 6-Flx-Rdg-Fish Oil 1 EACH capsule (5 sources) Start: 09-13-2016 End: 02-16-2025 take 1 capsule by mouth once daily [place] 0-Ckr-Vnq-Fish Oil 1 EACH capsule Discontinued 1 NMA PO DAILY September 13, 2016 12:00am February 16, 2025 9:15am 2 ml ondansetron 2 mg/ml injection (2 sources) Serotonin-3 Receptor Antagonist Start: 01-16-2024 End: 01-16-2024 ondansetron (Zofran) injection 4 mg ondansetron ODT (Zofran-ODT) disintegrating tablet 4 mg (2 sources) Start: 01-16-2024 End: 01-21-2024 take 1 tablet by mouth every eight hours as needed for nausea and vomiting ondansetron ODT (Zofran-ODT) disintegrating tablet 4 mg oxybutynin chloride 5 mg oral tablet (5 sources) Cholinergic Muscarinic Antagonist Start: 09-13-2016 End: 02-16-2025 take 2 tablets by mouth once daily Oxybutynin Chloride 5 MG tablet Discontinued 10 mg PO DAILY September 13, 2016 12:00am February 16, 2025 9:18am perflutren protein A microsphere (Optison) 3 mL in sodium chloride (PF) 0.9 % 10 mL IV syringe (2 sources) Start: 01-17-2024 End: 01-21-2024 perflutren protein A microsphere (Optison) 3 mL in sodium chloride (PF) 0.9 % 10 mL IV syringe polyethylene glycol 3350 95462 mg powder for oral solution (10 sources) Osmotic Laxative Start: 01-21-2024 End: 02-04-2024 polyethylene glycol, PEG, 3350 (Glycolax) 17 GM/SCOOP powder Take 17 g by mouth daily for 14 days. Take daily for constipation 119 g 1 01/21/2024 02/04/2024 Discontinued (Alternate therapy) Start: 01-21-2024 End: 01-21-2024 polyethylene glycol, PEG, 33 50 (Glycolax) 17 GM/SCOOP powder Take 17 g by mouth daily for 3 days. Take daily for constipation 51 g 0 01/21/2024 01/21/2024 Discontinued Start: 01-16-2024 End: 01-21-2024 take 17 g by mouth every twenty-four hours as needed for constipation polyethylene glycol (PEG) 3350 (Miralax) packet 17 g potassium bicarbonate 25 meq effervescent oral tablet (2 sources) Start: 01-16-2024 End: 01-16-2024 potassium bicarbonate (K-Lyte) effervescent tablet 25 mEq QUEtiapine 25 mg oral tablet (2 sources) Atypical Antipsychotic Start: 01-17-2024 End: 01-17-2024 QUEtiapine (SEROquel) tablet 25 mg 1000 ml sodium chloride 9 mg/ml injection (6 sources) Start: 01-16-2024 End: 01-17-2024 sodium chloride 0.9 % infusion Start: 01-16-2024 End: 01-16-2024 sodium chloride 0.9 % bolus 500 mL Problems Active Problems Problem Classification Problem Date Documented Da te Episodic/Chronic Administrative/social admission (1 source) Encounter for examination for admission to residential institution; Translations: [Encounter for examination for admission to residential institution] Onset: 5 Episodic Anxiety disorders (20 sources) Anxiety; Translations: [Anxiety disorder, unspecified] Onset: 5 06-08-2015 Chronic Cardiac dysrhythmias (9 sources) Irregular heart beat; Translations: [Cardiac arrhythmia, unspecified] Onset: 5 12-22-2024 Chronic Chronic obstructive pulmonary disease and bronchiectasis (20 sources) Chronic obstructive lung disease; Translations: [Pulmonary emphysema] Onset: 6 02-07-2016 Chronic Congestive heart failure; nonhypertensive (20 sources) Left ventricular cardiac dysfunction; Translations: [Heart disease, unspecified] Onset: 7 11-20-2017 Chronic Coronary atherosclerosis and other heart disease (20 sources) Atherosclerotic heart disease of [place] coronary artery without angina pectoris; Translations: [Coronary arteriosclerosis] Onset: 6 08-19-2016 Chronic Deficiency and other anemia (1 source) Normocytic normochromic anemia; Translations: [Anemia, unspecified] 12-26-2024 Episodic Deficiency and other anemia (1 source) Anemia, unspecified; Translations: [Anemia, unspecified] Onset: Episodic Delirium, dementia, and amnestic and other cognitive disorders (20 sources) Alzheimer's disease; Translations: [Alzheimer's disease, unspecified] Onset: 1 09-08-2022 Chronic Diseases of white blood cells (7 sources) Leukocytosis; Translations: [Elevated white blood cell count, unspecified] Onset: 5 01-26-2025 Chronic Disorders of lipid metabolism (20 sources) Hypercholesterolemia; Translations: [Hypertriglyceridemia] Onset: 6 Resolved: 6 11-20-2017 Chronic Esophageal disorders (20 sources) Gastroesophageal reflux disease; Translations: [Gastro-esophageal reflux disease without esophagitis] Onset: 5 06-08-2015 Chronic Essential hypertension (20 sources) Essential (primary) hypertension; Translations: [Essential hypertension] Onset: 8 09-08-2022 Chronic Fluid and electrolyte disorders (11 sources) Dehydration; Translations: [Dehydration] Onset: 5 01-16-2024 Episodic Fracture of upper limb (9 sources) Closed fracture of humerus; Translations: [Unspecified fracture of shaft of humerus, unspecified arm, initial encounter for closed fracture] Onset: 5 01-26-2025 Episodic Gastroduodenal ulcer (except hemorrhage) (20 sources) Gastric ulcer; Translations: [Gastric ulcer, unspecified as acute or chronic, without hemorrhage or perforation] Onset: 7 Resolved: 7 10-02-2017 Chronic Malaise and fatigue (13 sources) Asthenia; Translations: [Other malaise] Onset: 5 01-26-2025 Episodic Mood disorders (5 sources) Depressive disorder; Translations: [Depression] 01-26-2025 Chronic Noninfectious gastroenteritis (20 sources) Collagenous colitis; Translations: [Collagenous colitis] Onset: 5 06-08-2015 Chronic Noninfectious gastroenteritis (3 sources) Collagenous colitis; Translations: [Colitis] 06-08-2015 Episodic Osteoporosis (2 sources) Osteoporosis; Translations: [Osteoporosis with pathological fracture] 06-08-2015 Chronic Other diseases of bladder and urethra (20 sources) Overactive bladder; Translations: [Overactive bladder] Onset: 5 06-08-2015 Chronic Other gastrointestinal disorders (20 sources) Irritable bowel syndrome; Translations: [Irritable bowel syndrome without diarrhea] Onset: 5 06-08-2015 Chronic Other inflammatory condition of skin (20 sources) Psoriasis; Translations: [Psoriasis, unspecified] Onset: 5 06-08-2015 Chronic Other lower respiratory disease (12 sources) Nodule of lung; Translations: [Solitary pulmonary nodule] 01-16-2024 Episodic Other lower respiratory disease (10 sources) Hypoxia; Translations: [Hypoxemia] 02-16-2025 Episodic Other lower respiratory disease (5 sources) Cavitation of lung; Translations: [Other disorders of lung] 01-31-2025 Episodic Other lower respiratory disease (1 source) Shortness of breath; Translations: [Shortness of breath] Onset: 5 Episodic Other nervous system disorders (20 sources) Neuropathy; Translations: [Polyneuropathy, unspecified] Onset: 5 06-08-2015 Chronic Other nervous system disorders (5 sources) Walking disability; Translations: [Difficulty in walking, not elsewhere classified] 01-26-2025 Chronic Other nervous system disorders (1 source) Difficulty in walking, not elsewhere classified; Translations: [Difficulty in walking, not elsewhere classified] Onset: 5 Chronic Other nervous system disorders (2 sources) Polyneuropathy, unspecified; Translations: [Polyneuropathy, unspecified] Onset: 2 Chronic Other nervous system disorders (2 sources) Impaired cognition; Translations: [Other symptoms and signs involving cognitive functions and awareness] 01-19-2024 Episodic Other screening for suspected conditions (not mental disorders or infectious disease) (7 sources) Blood urea abnormal; Translations: [Abnormal finding of blood chemistry, unspecified] Onset: 5 01-26-2025 Episodic Spondylosis; intervertebral disc disorders; other back problems (20 sources) Degeneration of lumbar intervertebral disc; Translations: [Other intervertebral disc degeneration, lumbar region] Onset: 7 05-01-2017 Chronic Superficial injury; contusion (1 source) Hematoma of scalp; Translations: [Contusion of scalp, initial encounter] 05-27-2024 Episodic Thyroid disorders (20 sources) Hypothyroidism; Translations: [Hypothyroidism, unspecified] Onset: 6 04-02-2017 Chronic Thyroid disorders (5 sources) Disorder of thyroid gland; Translations: [Disorder of thyroid, unspecified] 01-26-2025 Episodic Unclassified (1 source) Unknown / UNK(Unknown) Onset: 8 Unclassified (2 sources) Compression fracture of thoracic vertebra; Translations: [Thoracic compression fracture] 06-08-2015 Unclassified (5 sources) You will need repeat x-rays of your left shoulder in 1 to 2 weeks Unclassified (5 sources) Left humerus fracture Past or Other Problems Problem Classification Problem Date Documented Da te Episodic/Chronic Coronary atherosclerosis and other heart disease (2 sources) History of placement of stent for coronary artery disease; Translations: [History of myocardial infarction] Onset: 07-09-2016 Resolved: 07-09-2016 07-09-2016 Episodic E Codes: Fall (6 sources) Fall; Translations: [Unspecified fall, initial encounter] Onset: 01-12-2025 01-26-2025 Episodic Epilepsy; convulsions (2 sources) Seizure; Translations: [New onset seizure] Onset: 03-03-2018 Resolved: 03-05-2018 03-05-2018 Episodic Nausea and vomiting (2 sources) Persistent vomiting; Translations: [Emesis, persistent] Onset: 07-20-2018 Resolved: 09-30-2018 09-30-2018 Episodic Osteoarthritis (2 sources) Arthritis; Translations: [Arthritis] Resolved: 06-23-2016 06-23-2016 Chronic Other circulatory disease (20 sources) Disorder of carotid artery; Translations: [Disorder of arteries and arterioles, unspecified] Onset: 06-08-2015 Resolved: 04-09-2023 06-08-2015 Chronic Other circulatory disease (20 sources) H/O: hypertension; Translations: [Personal history of other diseases of the circulatory system] Onset: 03-24-2017 04-02-2017 Episodic Other connective tissue disease (2 sources) Non-traumatic rhabdomyolysis; Translations: [Non-traumatic rhabdomyolysis] Onset: 10-21-2016 Resolved: 03-12-2018 03-12-2018 Episodic Other diseases of kidney and ureters (20 sources) Renal impairment; Translations: [Disorder of kidney and ureter, unspecified] Onset: 11-28-2017 11-28-2017 Episodic Other fractures (20 sources) Compression fracture of thoracic vertebra; Translations: [Wedge compression fracture of unspecified thoracic vertebra, initial encounter for closed fracture] Onset: 06-08-2015 09-08-2022 Episodic Other fractures (2 sources) Wedge compression fracture of unspecified thoracic vertebra, sequela; Translations: [Wedge compression fracture of unspecified thoracic vertebra, sequela] Onset: 09-08-2022 Episodic Other gastrointestinal disorders (20 sources) H/O: upper GIT hemorrhage; Translations: [Personal history of other diseases of the digestive system] Onset: 02-23-2016 08-19-2016 Episodic Other lower respiratory disease (2 sources) Cough; Translations: [Cough] Onset: 03-03-2018 Resolved: 04-11-2018 04-11-2018 Episodic Other lower respiratory disease (1 source) Hemoptysis Episodic Other nervous system disorders (2 sources) Metabolic encephalopathy; Translations: [Metabolic encephalopathy] Onset: 10-17-2016 Resolved: 03-12-2018 03-12-2018 Chronic Paralysis (2 sources) Paraparesis; 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] Onset: 03-03-2018 Resolved: 03-12-2018 03-12-2018 Chronic Pathological fracture (20 sources) Osteoporosis; Translations: [Age-related osteoporosis with current pathological fracture, unspecified site, initial encounter for fracture] Onset: 06-08-2015 09-08-2022 Episodic Phlebitis; thrombophlebitis and thromboembolism (20 sources) H/O: Deep vein thrombosis; Translations: [Personal history of other venous thrombosis and embolism] Onset: 11-24-2016 04-02-2017 Episodic Syncope (20 sources) Syncope and collapse; Translations: [Syncope and collapse] Onset: 01-16-2024 01-16-2024 Episodic Urinary tract infections (2 sources) Urinary tract infectious disease; Translations: [UTI (urinary tract infection)] Onset: 03-03-2018 Resolved: 03-12-2018 03-12-2018 Episodic Results Test Name Value Interpretation Reference Range [address] 06-07-2025 36 Ordering provider: Josephine poe Date of last office visit: 12/22 Date of next office visit: 07/18 Updated/Validated [facility] pharmacy[facility] [address] [facility] Patient instructed to contact the pharmacy prior to picking up the medication: Yes (1) Medication name: metoprolol tartrate (Lopressor) Medication dosage: 50 mg (Miligrams Monthly quantity needed: 60 How many day supply requestin days Medication route: oral (PO) Medication administration time(s): 2 times a day (BID) If taking medication PRN, reason for taking medication: N/A If this is a controlled substance do you receive this or any other controlled medication from any other doctor or facility: N/A Date of last refill (see medication tab): 09/22/24 (2) Medication name: mirtazapine (Remeron) Medication dosage: 7.5 mg (Miligrams Monthly quantity needed: 30 How many day supply requestin days Medication route: oral (PO) Medication administration time(s): bedtime (HS) If taking medication PRN, reason for taking medication: N/A If this is a controlled substance do you receive this or any other controlled medication from any other doctor or facility: N/A Date of last refill (see medication tab): 09/22/[address] 05-26-2025 36 Recent Visits Date Type Provider Dept 12/22/24 Office Visit Wayne Conde DO [facility] 09/22/24 Office Visit Wayne Conde DO [facility] 05/26/24 Office Visit Wayne Conde DO [facility] Showing recent visits within past 365 days and meeting all other requirements Future Appointments Date Type Provider Dept 07/18/25 Appointment Wayne Conde DO [facility] Showing future appointments within next 90 days and meeting all other requirements Requested Prescriptions Pending Prescriptions Disp Refills Aspirin Low Dose 81 MG EC tablet [Pharmacy Med Name: Aspirin Low Dose 81 MG Tablet delayed release] 31 tablet 11 Sig: TAKE 1 TABLET BY MOUTH EVERY MORNING Provider: Wayne Conde DO Verified pharmacy: yes Verified day(s) supplied: yes Verified refill(s) needed (previous prescription showing no refills in chart): Yes Have you received any controlled medications from any other provider? N/A Overdue for visit: No If yes - patient scheduled? Yes Most recent labs completed in chart? N/A [facility] 05-19-2025 36 Jose David aware to cont t bead flipper [facility] 36 Name of caller: Jose David Contact phone number: [phone] Relationship to Patient: [facility] Pharmacy Provider: Dr. Conde Practice: [facility] Chief Complaint/Reason for Call: Jose David calling back requesting a new Rx for the metoprolol tartrate (Lopressor) 50 MG tablet He stated he wanted to know if she is still on this or the ER taking 1/day? Please send which Rx she is suppose to be on. Please advise. Best time of day caller can be reached: Any Patient advised that office/PCP has 24-48 business hours to return their call: Yes [facility] 05-17-2025 36 We have no availabil ity before 07/18/25. [place] [id number] 36 Pharmacist tonioin g all meds including over the counter to be sent again due to a goof on there part. [facility] 05-05-2025 36 Jennifer discussed medication list with pharmacy yesterday and was advised on what medications need sent. If other medications need sent he office needs to know the name and dosages of medication that need sent. [place] [id number] 36 Name of caller: Jose David Contact phone number: [phone] Relationship to Patient: Pharmacy Provider: Dr. Conde Practice: [facility] Chief Complaint/Reason for Call: Jose David states all the patient medication were discontinue when the patient was admitted into the nurse home. He received 5 prescriptions for the patient. However, he needs a script for all her medication minus the 5 scripts that was sent yesterday. Please call the pharmacy to go over the patient medication list. The pharmacy states they provide daily dose pack for the patient within a 30 day cycle. Please call the pharmacy to advise. Best time of day caller can be reached: Till 5:30 pm Patient advised that office/PCP has 24-48 business hours to return their call: Yes [facility] 36on 05-03-2025 36 Spoke with pharmacy went over med list and these are the med's she needs new scripts on. Rx loaded [facility] 36 Name of caller: Uzma ruiz Contact phone number: [phone] Relationship to Patient: [facility] Provider: Elton Practice: [facility] Chief Complaint/Reason for Call: Mary rivas provider needs to call pharmacy [address] to verify medication list and and refill them for more then 2 weeks. Please advise Mary for further questions. Best time of day caller can be reached: any Patient advised that office/PCP has 24-48 business hours to return their call: Yes [facility] 36 Spoke with Kimberly and r elayed message from provider. Patient will keep her appointment in June. [facility] 36on 05-02-2025 36 full PCP does not have anything sooner. Schedule next available with PCP [place] [id number] See other TE [place] [id number] Name of caller: Kimberly Contact phone number: [phone] Relationship to Patient: Provider: Dr Conde Practice: [facility] Chief Complaint/Reason for Call: RAJ appt need to scheduled -no longer than 14 days from discharge Best time of day caller can be reached: Patient advised that office/PCP has 24-48 business hours to return their call: No [facility] 36on 04-29-2025 36 Name of Caller: kimberly Contact Reason for Appointment: Kimberly is calling from [facility] to get pt scheduled for a trans care appt with pcp. Pcp's soonest available was in June but pt is needing seen within the next 2 weeks . Please advise. 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 Conde Practice: [facility] Chief Complaint/Reason for Call: Kevin states that they received orders from Patient's PCP to follow for home jewel and they called Patient and Patient does not want these services so they are cancelling this referral. FYI Best time of day caller can be reached: Any Patient advised that office/PCP has 24-48 business hours to return their call: No Avisena [facility] 36on 04-27-2025 36 Left detailed messag e for Kevin [employer] [facility] 36 Name of caller: Desiree gan Contact phone number: [phone] Relationship to Patient: RN, Tameka [facility] Provider: Elton Practice: [facility] Chief Complaint/Reason for Call: Kevin received a home care referral for PT, OT and a home health aid and is asking if provider will follow orders. Please advise. Best time of day caller can be reached: any Patient advised that office/PCP has 24-48 business hours to return their call: Yes [facility] Anion gap in Serum or Plasma Ordered By: Leena Corado on 03-24-2025 Anion gap [Moles/Vol] 11 mmol/L 04-07 [facility] BUN/creatinine ratioOrdered By: Leena Corado on 03-24-2025 Urea nitrogen/Creatinine [Mass ratio] 12.1 mg/mg 09-12 [facility] Basic Metabolic Profile (BMP )on 03-24-2025 BUN/CRE 12.1 RATIO Normal - [facility] Comment on above: Order Comment: 508.1 Performed By: #### L 100.0500, L501.1620, L500.2500 #### [facility] [address] [place], [address] Calcium [Mass/Vol] 9.2 mg/dL Normal 7.6-11.0 [facility] Comment on above: Order Comment: 508.1 Performed By: #### L 100.0500, L501.9520, L500.2500 #### [facility] [address] [place], [address] Chloride [Moles/Vol] 103 mmol/L Normal 98-108 [facility] Comment on above: Order Comment: 508.1 Performed By: #### L 100.0500, L501.9520, L500.2500 #### [facility] [address] [place], [address] CO2 [Moles/Vol] 24.4 mmol/L Normal 21.0-32.0 [facility] Comment on above: Order Comment: 508.1 Performed By: #### L 100.0500, L501.9520, L500.2500 #### [facility] [address] [place], [address] Creatinine [Mass/Vol] 0.92 mg/dL Normal 0.70-1.20 [facility] Comment on above: Order Comment: 508.1 Performed By: #### L 100.0500, L501.9520, L500.2500 #### [facility] [address] [place], [address] GAP 11 Normal 5-15 [facility] Comment on above: Order Comment: 508.1 Performed By: #### L 100.0500, L501.9520, L500.2500 #### [facility] [address] [place], [address] GFR/1.73 sq M.predicted among non-blacks MDRD (S/P/Bld) [Vol rate/Area] 61 mL/min/{1.73_m2} Normal >60 [facility] Comment on above: Order Comment: 508.1 Result Comment: mL/m in/1.73m2 CKD-EPI Creatinine Equation (2020) Performed By: #### L 100.0500, L501.9520, L500.2500 #### [facility] [address] [place], [address] Glucose [Mass/Vol] 85 mg/dL Normal 70-99 [facility] Comment on above: Order Comment: 508.1 Performed By: #### L 100.0500, L501.9520, L500.2500 #### [facility] [address] [place], [address] Potassium [Moles/Vol] 4.1 mmol/L Normal 3.3-5.1 [facility] Comment on above: Order Comment: 508.1 Performed By: #### L 100.0500, L501.9520, L500.2500 #### [facility] [address] [place], [address] Sodium [Moles/Vol] 138 mmol/L Normal 133-145 [facility] Comment on above: Order Comment: 508.1 Performed By: #### L 100.0500, L501.9520, L500.2500 #### [facility] [address] [place], [address] Urea nitrogen [Mass/Vol] 11 mg/dL Normal 4-19 [facility] Comment on above: Order Comment: 508.1 Performed By: #### L 100.0500, L501.9520, L500.2500 #### [facility] [address] [place], [address] CBC-Complete Blood Cnt No Di ffon 03-24-2025 Erythrocyte distribution width (RBC) [Ratio] 15.5 % High 11.6-14.6 [facility] Comment on above: Order Comment: 508.1 Performed By: #### L 100.0500, L501.9520, L500.2500 #### [facility] [address] [place], [address] Hematocrit (Bld) [Volume fraction] 32.4 % Low 37-47 [facility] Comment on above: Order Comment: 508.1 Performed By: #### L 100.0500, L501.9520, L500.2500 #### [facility] [address] [place], [address] Hemoglobin (Bld) [Mass/Vol] 10.1 g/dL Low 12.0-15.0 [facility] Comment on above: Order Comment: 508.1 Performed By: #### L 100.0500, L501.9520, L500.2500 #### [facility] [address] [place], [address] MCH (RBC) [Entitic mass] 25.6 pg Low 27.0-32.0 [facility] Comment on above: Order Comment: 508.1 Performed By: #### L 100.0500, L501.9520, L500.2500 #### [facility] [address] [place], [address] MCHC (RBC) [Mass/Vol] 31.2 g/dL Low 32-36 [facility] Comment on above: Order Comment: 508.1 Performed By: #### L 100.0500, L501.9520, L500.2500 #### [facility] [address] [place], [address] MCV (RBC) [Entitic vol] 82.2 fL Normal 81-99 [facility] Comment on above: Order Comment: 508.1 Performed By: #### L 100.0500, L501.9520, L500.2500 #### [facility] [address] [place], [address] Platelet mean volume (Bld) [Entitic vol] 11.6 fL Normal 6.2-12.0 [facility] Comment on above: Order Comment: 508.1 Performed By: #### L 100.0500, L501.9520, L500.2500 #### [facility] [address] [place], [address] Platelets (Bld) [#/Vol] 325 10*3/uL Normal 150-450 [facility] Comment on above: Order Comment: 508.1 Performed By: #### L 100.0500, L501.9520, L500.2500 #### [facility] [address] [place], [address] RBC (Bld) [#/Vol] 3.94 10*6/uL Low 4.2-5.4 [facility] Comment on above: Order Comment: 508.1 Performed By: #### L 100.0500, L501.9520, L500.2500 #### [facility] [address] [place], [address] RDW SD 46.5 fl High 35.1-43.9 [facility] Comment on above: Order Comment: 508.1 Performed By: #### L 100.0500, L501.9520, L500.2500 #### [facility] [address] [place], [address] WBC (Bld) [#/Vol] 6.5 10*3/uL Normal 4.4-11.0 [facility] Comment on above: Order Comment: 508.1 Performed By: #### L 100.0500, L501.9520, L500.2500 #### [facility] [address] [place], [address] Carbon dioxide, total [Moles /volume] in Central venous bloodOrdered By: Leena Corado on 03-24-2025 CO2 [Moles/Vol] 24.4 mmol/L 21.0-32.0 [facility] Chloride assayOrdered By: Malik Corado on 03-24-2025 Chloride [Moles/Vol] 103 mmol/L 98-108 [facility] Erythrocyte distribution wid th ratioOrdered By: Leena Corado on 03-24-2025 Erythrocyte distribution width (RBC) [Ratio] 15.5 % High 11.6-14.6 [facility] Erythrocyte distribution wid th standard deviationOrdered By: Leena Corado on 03-24-2025 Erythrocyte distribution width (RBC) [Ratio] 46.5 fl High 35.1-43.9 [facility] Glomerular filtration rate ( GFR) estimation/1.73 sq m using serum, plasma, or whole bOrdered By: Leena Corado on 03-24-2025 GFR/1.73 sq M.predicted among non-blacks MDRD (S/P/Bld) [Vol rate/Area] 61 mL/min/{1.73_m2} >60 [facility] Comment on above: mL/min/1.73m2 CKD-EP I Creatinine Equation (2020) Hematocrit Auto (Bld) [Volum e fraction]Ordered By: Leena Corado on 03-24-2025 Hematocrit (Bld) [Volume fraction] 32.4 % Low 37-47 [facility] Hemoglobin measurementOrdere d By: Leena Corado on 03-24-2025 Hemoglobin (Bld) [Mass/Vol] 10.1 g/dL Low 12.0-15.0 [facility] MCV (mean corpuscular volume ) determinationOrdered By: Leena Corado on 03-24-2025 MCV (RBC) [Entitic vol] 82.2 fL 81-99 [facility] Mean corpuscular hemoglobin (MCH) determinationOrdered By: Leena Corado on 03-24-2025 MCH (RBC) [Entitic mass] 25.6 pg Low 27.0-32.0 [facility] Mean corpuscular hemoglobin concentration (MCHC) determinationOrdered By: Leena Corado on 03-24-2025 MCHC (RBC) [Mass/Vol] 31.2 g/dL Low 32-36 [facility] Mean platelet volume determi nationOrdered By: Leena Corado on 03-24-2025 Platelet mean volume (Bld) [Entitic vol] 11.6 fL 6.2-12.0 [facility] Platelet countOrdered By: Malik Corado on 03-24-2025 Platelets (Bld) [#/Vol] 325 10*3/uL 150-450 [facility] Potassium measurement (mass/ volume)Ordered By: Leena Corado on 03-24-2025 Potassium (Unsp spec) [Mass/Vol] 4.1 mmol/L 3.3-5.1 [facility] RBC Auto (Bld) [#/Vol]Ordere d By: Leena Corado on 03-24-2025 RBC (Bld) [#/Vol] 3.94 10*6/uL Low 4.2-5.4 [facility] Serum creatinine measurement (mass/volume)Ordered By: Leena Corado on 03-24-2025 Creatinine [Mass/Vol] 0.92 mg/dL 0.70-1.20 [facility] Serum glucose measurement (m ass/volume)Ordered By: Leena Corado on 03-24-2025 Glucose [Mass/Vol] 85 mg/dL 70-99 [facility] Serum or plasma calcium harish urement (mass/volume)Ordered By: Leena Corado on 03-24-2025 Calcium [Mass/Vol] 9.2 mg/dL 7.6-11.0 [facility] Serum or plasma urea nitroge n measurement (mass/volume)Ordered By: Leena Corado on 03-24-2025 Urea nitrogen [Mass/Vol] 11 mg/dL 4-19 [facility] Sodium levelOrdered By: Nelson Corado on 03-24-2025 Sodium [Moles/Vol] 138 mmol/L 133-145 [facility] TSH DL <= 0.005 mIU/L QnOrde red By: Leena Corado on 03-24-2025 TSH Qn 2.480 uIU/mL 0.300-4.20 0 [facility] Thyroid Stim Hormone (TSH)on 03-24-2025 TSH 2.480 uIU/mL Normal 0.300-4.20 0 [facility] Comment on above: Order Comment: 508.1 Performed By: #### L 100.0500, L501.7520, L500.2500 #### [facility] [address] [place], [address] White blood cell (WBC) count Ordered By: Leena Corado on 03-24-2025 WBC (Bld) [#/Vol] 6.5 10*3/uL 4.4-11.0 [facility] 12 Lead EKG performed by [facility] on 03-09-2025 12 Lead EKG performed by [facility] [address] [place] [address] 12 Lead EKG performed by [facility] 03/09/2532 MR#: [id number] Acct: [id number] Name: FARZANA HERRON Rep #: [id number] : 1940 84 From: Adriel Charles MD Attending Dr: Dr. Adriel Charles MD Status: DEP A MB Ordering Dr: Adriel Charles MD Date: 03/09/25 Location: [facility] Sex: F C Admitted: [facility]/12 Lead EKG performed by [facility] ECG Report Interpretation Si nus Rhythm Low voltage in precordial leads. -Old inferior infarct -Old anterior infarct. ABNORMAL Electronically signed on 03/10/2025 at 07:35 by Adriel Charles Software Version [id number] 03/10/2536 Date Adriel Charles MD CC: Dr. Wayne Conde DO Date Dictated: 03/09/25931 Date Transcribed: 03/09/25931 Animated Cartoons Painter: [place] Signed Normal [facility] Cardiology Visit Reporton Cardiology Visit Report [facility] [address] [place] [address] OFFICE VISIT Date of Service: 03/09/25 MR#: [id number] Acct: [id number] Name: FARZANA HERRON Rep #: [id number] : 1940 Provider: Dr. Adriel Charles MD Age/Sex: 84/F Location: [facility] Status: Signed HPI HPI History of Present Illness Details: 84-year-old lady with a history of Alzheimer's dementia and coronary artery disease currently domiciled at [facility]. She had presented in [address] elevation myocardial infarction and underwent a cardiac catheterization which demonstrated an ejection fraction of 50 to 55%, LAD with 65% stenosis and a 75% distal stenosis, second diagonal vessel with a 70% stenosis in the right coronary artery which was totally occluded. 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 She was placed on medical therapy and she appears to have done well in the interim. She did undergo an echocardiogram a year ago in December 2023 demonstrating an ejection fraction of 66% with moderate LVH and mildly calcified aortic valve leaflet. No other significant abnormalities were noted. She denies any chest pain or shortness of breath or paroxysmal nocturnal dyspnea or pedal edema she has had some lower blood pressures. Her physical exam here is unremarkable her electrocardiogram from January 09 demonstrated sinus rhythm with a rate of 82 bpm and her electrocardiogram here demonstrates sinus rhythm with a rate of 81 bpm. Her most recent lipid profile was enclosed. Intake Vital Signs 01/09/25 06:38 03/09/25 09:31 Height 5 ft 5 ft Weight: 104 lb BMI 20.2 BP 83/52 L Blood Pressure Location Lt brachial Position Sitting Respiration 16 Pulse 74 Pulse Source Monitor Intake Visit Reasons: ABN EKG [facility] Enterprise Analyst Required: No Accompanied by: Caregiver Is patient in pain?: No Allergies codeine Allergy (Verified 03/09/25 09:40) Rash Medications ???Medication ???Instructions ???Recorded ???Confirmed ???Type aspirin 81 mg tablet,delayed 81 mg PO DAILY Heart health 03/09/25 History release donepezil 5 mg tablet 5 mg PO QHS BP 01/02/25 03/09/25 H istory isosorbide mononitrate 60 mg 60 mg PO DAILY Heart failure 01/0203/09/25 History tablet,extended release 24 hr levothyroxine 50 mcg tablet 50 mcg PO DAILY 01/02/25 03/09/25 History acetaminophen 500 mg tablet 1,000 mg (2 x 500 mg) PO Q8 PRN 03/09/25 Rx Pain 1-5/10 or Fever #10 tabs acetaminophen 325 mg capsule 650 mg PO Q4H PRN fever 01/23/25 0 03/09/25 History acetaminophen 650 mg rectal 650 mg DE Q4H 01/23/25 03/09/25 Hi story suppository albuterol sulfate 0.63 mg/3 mL 0.63 mg continuous nebulization 03/09/25 History solution for nebulization Q6H PRN shortness of breath or wheezing calcium carbonate (Calcium 600) 600 mg PO DAILY 01/23/25 03/09/25 History guaifenesin 400 mg PO TID 01/23/25 03/09/25 Hi story guaifenesin 100 mg/5 mL oral 200 mg PO Q4H PRN congestion 01/2303/09/25 History liquid (Adult Tussin Chest Congestion) magnesium hydroxide 400 mg/5 mL 30 ml PO DAILY PRN constipation 03/09/25 History oral suspension (Milk of Magnesia) metoprolol tartrate 50 mg tablet 50 mg PO BID 01/23/25 03/09/25 His tory tramadol 50 mg tablet 50 mg PO Q8H PRN pain 01/23/25 History aluminum-magnesium hydroxide 225 30 ml PO Q4H PRN 02/16/25 03/09/25 History mg-200 mg/5 mL oral suspension bisacodyl 10 mg rectal suppository 10 mg DE QDAY PRN 02/16/2503/09 History dextrose 40 % oral gel (Glucose 10 g PO Q15M PRN 02/16/25 03/09/25 History Gel) gabapentin 300 mg capsule 300 mg PO BID 02/16/25 03/09/25 Hi story glucagon HCl 1 mg solution for 1 mg subcut Q20M PRN 02/16/2502/22 History injection (Glucagon (HCl) Emergency Kit) magnesium oxide 400 mg (241.3 mg 400 mg PO BID 02/16/25 03/09/25 Hi story magnesium) tablet (MagOx) mineral oil (Fleet Mineral Oil 118 ml DE QDAY PRN 02/16/25 History enema) mirtazapine 15 mg tablet 15 mg PO QHS 02/16/25 03/09/25 His tory omega-3 fatty acids 1,000 mg 1,000 mg PO QDAY 02/16/25 03/09/25 History capsule pantoprazole 40 mg tablet,delayed 40 mg PO QHS 02/16/25 03/09/25 Hi story release Have you fallen in the past year?: Yes [facility] Medical History Syncope and collapse LV dysfunction Anxiety IBS (irritable bowel syndrome) COPD (chronic obstructive pulmonary disease) Hx of myocardial infarction Arrhythmia Chronic CHF (congesti (more content not included)... Normal [facility] Pulmonary Visit Reporton Pulmonary Visit Report [facility] [place] [address] [place] [address] OFFICE VISIT Date of Service: 02/16/25 MR#: [id number] Acct: [id number] Name: FARZANA HERRON Rep #: [id number] : 1940 Provider: SOPHIE Tolbert Age/Sex: 84/F Location: [facility] Status: Signed Assessment and Plan Assessment and Plan (1) Lung nodule: Status: Acute Plan: The patient is not agreeable to any additional testing. She does not believe that she could possibly have cancer. I attempted to call the and the daughter listed on the intermediate paperwork and our contact list. I was not able to get a hold of any family members. I did request that the intermediate discussed this with the family members. I did not proceed with ordering a PET scan today given the patient's decline in additional testing. However, if the POA contact the office to discuss this with me I would be willing to order a PET scan to evaluate this spiculated nodule. No follow-up scheduled today as the patient was not agreeable to additional testing. If the patient ultimately has the PET scan we will follow-up in the office to discuss test results and develop a plan. (2) COPD (chronic obstructive pulmonary disease): Status: Chronic Qualifiers: COPD type: emphysema Emphysema type: centrilobular Qualified Code(s): J43.2 - Centrilobular emphysema Plan: Asymptomatic. Not requiring maintenance inhalers. (3) Alzheimer's dementia: Status: Chronic Qualifiers: Alzheimer's disease onset: unspecified onset Dementia severity: unspecified severity Dementia behavioral or psychological symptom: with mood disturbance Qualified Code(s): G30.9 - Alzheimer's disease, unspecified; F02.83 - Dementia in other diseases classified elsewhere, unspecified severity, with mood disturbance Plan: Complicates exam, plan, care and prognosis. It is doubtful that the patient is in a position to make medical decisions for herself. Unfortunately, she presented to the office today alone. I was not able to contact her family members in the decision-making process. (4) Hypoxia: Status: Chronic Plan: I recommend that the patient utilize 2 L/min of supplemental oxygen at all times. However, she admits that she is not willing to wear it. I would encourage her to wear it and offer it is much as possible. HPI LORRIE LUNG MASS Chief Complaint: Test results HPI Comments Details: This patient presents to the office today for initial consultation regarding abnormal CT scan, complicated by dementia. She has had a wheelchair, currently on room air and accompanied by a nurses aide from the intermediate she resides in. She was seen in the emergency department at [facility] on January 23, 2025 for low oxygen saturation. She has a history of reported COPD and CHF. She was complaining of shortness of breath and the intermediate was reporting that she had an oxygen saturation in the 80s. The patient was placed on a nonrebreather and had a saturation of 95%. It was noted that she had rhonchorous lung sounds on auscultation and mild tachypnea. She was also treated with a bronchodilator. Blood work was unrevealing. CTA of the chest was negative for PE. It did show emphysema. It is noted that there was a suspected cavitary lesion in the left upper lobe. Respiratory swabs were negative. She was treated with 1 dose of Solu-Medrol and return to the [facility] facility with a prescription for 7-day prednisone burst. Today the patient denies any shortness of breath. She denies any cough, sputum production or hemoptysis. She denies any wheezing, chest tightness, chest pain or palpitations. She has not had any fever, chills or body aches. When asked if the patient makes her own medical decisions or if her family makes them for, the patient states all of my family members are gone. She reports that her has a daughter. She states that her is very hard of hearing and probably did not hear the phone ringing when I called him this morning. The patient cannot answer her work history. She cannot answer any pulmonary history or past medical family history. Test results personally reviewed with the patient: CTA of the chest with and without contrast completed on January 23, 2025. There is a left upper lobe cavitary lesion with spiculation measuring 15 x 16 mm. Also noted is a large hiatal hernia. Mild diffuse emphysema. Negative for pulmonary embolism. Intake Vital Signs 01/23/25 10:39 02/16/25 07:44 Height 5 ft 5 ft Weight: 105 lb BMI 20.5 BP 99/60 Blood Pressure Location Rt brachial Position Sitting Respiration 18 Pulse 71 Pulse Source Monitor Temp 96.2 F L Temperature Source Temporal Artery Pulse Oximetry (%) 87 Oxygen Delivery Method room air Intake Visit Reason (more content not included)... Normal [facility] L506.1001on 02-01-2025 Vitamin D 25-OH 57.0 ng/mL Normal 30-100 [facility] Comment on above: Order Comment: 508.1 Result Comment: Teresa min D Status Deficiency: <20 ng/mL (50nmol/L) Insufficiency: 20-30 ng/mL (50-75 nmol/L) Sufficiency: 30-100 ng/mL (75-250 nmol/L) Toxicity: >100 ng/mL (>250 nmol/L) Performed By: #### L 100.0500, L501.9520, L500.2500 #### [facility] [address] [place], [address] Vitamin D, 25-hydroxyOrdered By: Leena Corado on 02-01-2025 Vitamin D 25-Hydroxy 57.0 ng/mL 30-100 [facility] Comment on above: Vitamin D StatusDefi ciency: <20 ng/mL (50nmol/L)Insufficiency: 20-30 ng/mL (50-75 nmol/L)Sufficiency: 30-100 ng/mL (75-250 nmol/L)Toxicity: >100 ng/mL (>250 nmol/L) Automated blood erythrocyte countOrdered By: Leena Corado on 01-28-2025 RBC (Bld) [#/Vol] 3.31 10*6/uL Low 4.2-5.4 [facility] Comment on above: Order Comment: 508.1 Performed By: #### L 100.0500, L501.9520, L500.2500 #### [facility] [address] [place], [address] Automated blood hematocrit ( percentage)Ordered By: Leena Corado on 01-28-2025 Hematocrit (Bld) [Volume fraction] 29.2 % Low 37-47 [facility] Comment on above: Order Comment: 508.1 Performed By: #### L 100.0500, L501.9520, L500.2500 #### [facility] [address] [place], [address] CBC-Complete Blood Cnt No Di ffon 01-28-2025 RDW SD 53.5 fl High 35.1-43.9 [facility] Comment on above: Order Comment: 508.1 Performed By: #### L 100.0500, L501.9520, L500.2500 #### [facility] [address] [place], [address] Erythrocyte distribution wid th ratioOrdered By: Leena Corado on 01-28-2025 Erythrocyte distribution width (RBC) [Ratio] 16.7 % High 11.6-14.6 [facility] Comment on above: Order Comment: 508.1 Performed By: #### L 100.0500, L501.9520, L500.2500 #### [facility] [address] [place], [address] Erythrocyte distribution wid th standard deviationOrdered By: Leena Corado on 01-28-2025 Erythrocyte distribution width (RBC) [Entitic vol] 53.5 fL High 35.1-43.9 [facility] Erythrocyte distribution width (RBC) [Ratio] 53.5 fl High 35.1-43.9 [facility] Hemoglobin measurementOrdere d By: Leena Corado on 01-28-2025 Hemoglobin (Bld) [Mass/Vol] 9.1 g/dL Low 12.0-15.0 [facility] Comment on above: Order Comment: 508.1 Performed By: #### L 100.0500, L501.9520, L500.2500 #### [facility] [address] [place], [address] MCV (mean corpuscular volume ) determinationOrdered By: Leena Corado on 01-28-2025 MCV (RBC) [Entitic vol] 88.2 fL Normal 81-99 [facility] Comment on above: Order Comment: 508.1 Performed By: #### L 100.0500, L501.9520, L500.2500 #### [facility] [address] [place], [address] Magnesium measurement (mass/ volume)Ordered By: Leena Corado on 01-28-2025 Magnesium [Mass/Vol] 1.7 mg/dL Normal 1.5-2.2 [facility] Comment on above: Order Comment: 508.1 Performed By: #### L 100.0500, L501.9520, L500.2500 #### [facility] [address] [place], [address] Magnesium (Unsp spec) [Mass/Vol] 1.7 mg/dL 1.5-2.2 [facility] Mean corpuscular hemoglobin (MCH) determinationOrdered By: Leena Corado on 01-28-2025 MCH (RBC) [Entitic mass] 27.5 pg Normal 27.0-32.0 [facility] Comment on above: Order Comment: 508.1 Performed By: #### L 100.0500, L501.9520, L500.2500 #### [facility] [address] [place], [address] Mean corpuscular hemoglobin concentration (MCHC) determinationOrdered By: Leena Corado on 01-28-2025 MCHC (RBC) [Mass/Vol] 31.2 g/dL Low 32-36 [facility] Comment on above: Order Comment: 508.1 Performed By: #### L 100.0500, L501.9520, L500.2500 #### [facility] [address] [place], [address] Mean platelet volume determi nationOrdered By: Leena Corado on 01-28-2025 Platelet mean volume (Bld) [Entitic vol] 10.8 fL Normal 6.2-12.0 [facility] Comment on above: Order Comment: 508.1 Performed By: #### L 100.0500, L501.9520, L500.2500 #### [facility] [address] [place], [address] Platelet countOrdered By: Malik Corado on 01-28-2025 Platelets (Bld) [#/Vol] 437 10*3/uL Normal 150-450 [facility] Comment on above: Order Comment: 508.1 Performed By: #### L 100.0500, L501.9520, L500.2500 #### [facility] [address] [place], [address] White blood cell (WBC) count Ordered By: Leena Corado on 01-28-2025 WBC (Bld) [#/Vol] 9.5 10*3/uL Normal 4.4-11.0 [facility] Comment on above: Order Comment: 508.1 Performed By: #### L 100.0500, L501.9520, L500.2500 #### [facility] [address] [place], [address] Automated blood erythrocyte countOrdered By: Leena Corado on 01-24-2025 RBC (Bld) [#/Vol] 3.50 10*6/uL Low 4.2-5.4 [facility] Comment on above: Order Comment: 104.1 Performed By: #### L 100.0500, L501.5200, L500.2500 #### [facility] [address] [place], [address] Automated blood hematocrit ( percentage)Ordered By: Leena Corado on 01-24-2025 Hematocrit (Bld) [Volume fraction] 30.7 % Low 37-47 [facility] Comment on above: Order Comment: 104.1 Performed By: #### L 100.0500, L501.5200, L500.2500 #### [facility] [address] [place], [address] BUN/creatinine ratioOrdered By: Leena Corado on 01-24-2025 Urea nitrogen/Creatinine [Mass ratio] 30.6 mg/mg High 10-20 [facility] Basic Metabolic Profile (BMP )on 01-24-2025 BUN/CRE 30.6 RATIO High 10-20 [facility] Comment on above: Order Comment: 104.1 Performed By: #### L 100.0500, L501.5200, L500.2500 #### [facility] [address] [place], [address] CBC-Complete Blood Cnt No Di ffon 01-24-2025 RDW SD 54.9 fl High 35.1-43.9 [facility] Comment on above: Order Comment: 104.1 Performed By: #### L 100.0500, L501.5200, L500.2500 #### [facility] [address] [place], [address] Carbon dioxide measurementOr dered By: Leena Corado on 01-24-2025 CO2 [Moles/Vol] 26.9 mmol/L Normal 22.0-29.0 [facility] Comment on above: Order Comment: 104.1 Performed By: #### L 100.0500, L501.5200, L500.2500 #### [facility] [address] [place], [place], [address] Chloride measurementOrdered By: Leena Corado on 01-24-2025 Chloride [Moles/Vol] 99 mmol/L Normal 96-108 [facility] Comment on above: Order Comment: 104.1 Performed By: #### L 100.0500, L501.5200, L500.2500 #### [facility] [address] [place], [address] Erythrocyte distribution wid th ratioOrdered By: Leena Corado on 01-24-2025 Erythrocyte distribution width (RBC) [Ratio] 17.3 % High 11.6-14.6 [facility] Comment on above: Order Comment: 104.1 Performed By: #### L 100.0500, L501.5200, L500.2500 #### [facility] [address] [place], [address] Erythrocyte distribution wid th standard deviationOrdered By: Leena Corado on 01-24-2025 Erythrocyte distribution width (RBC) [Entitic vol] 54.9 fL High 35.1-43.9 [facility] Erythrocyte distribution width (RBC) [Ratio] 54.9 fl High 35.1-43.9 [facility] GFR/1.73 sq M.predicted donovan g non-blacks MDRD (S/P/Bld) [Vol rate/Area]Ordered By: Leena Corado on 01-24-2025 Estimated GFR (MDRD) Non-Af Amer 58 Low >60 [facility] Comment on above: mL/min/1.73m2 CKD-EP I Creatinine Equation (2020) Glomerular filtration rate ( GFR) estimation/1.73 sq m using serum, plasma, or whole bOrdered By: Leena Corado on 01-24-2025 GFR/1.73 sq M.predicted among non-blacks MDRD (S/P/Bld) [Vol rate/Area] 58 mL/min/{1.73_m2} Low >60 [facility] Comment on above: mL/min/1.73m2 CKD-EP I Creatinine Equation (2020) Order Comment: 104.1 Result Comment: mL/m in/1.73m2 CKD-EPI Creatinine Equation (2020) Performed By: #### L 100.0500, L501.5200, L500.2500 #### [facility] [address] [place], [address] Hemoglobin measurementOrdere d By: Leena Corado on 01-24-2025 Hemoglobin (Bld) [Mass/Vol] 9.7 g/dL Low 12.0-15.0 [facility] Comment on above: Order Comment: 104.1 Performed By: #### L 100.0500, L501.5200, L500.2500 #### [facility] [address] [place], [address] MCV (mean corpuscular volume ) determinationOrdered By: Leena Corado on 01-24-2025 MCV (RBC) [Entitic vol] 87.7 fL Normal 81-99 [facility] Comment on above: Order Comment: 104.1 Performed By: #### L 100.0500, L501.5200, L500.2500 #### [facility] [address] [place], [address] Magnesium measurement (mass/ volume)Ordered By: Leena Corado on 01-24-2025 Magnesium [Mass/Vol] 1.7 mg/dL Normal 1.5-2.2 [facility] Comment on above: Order Comment: 104.1 Performed By: #### L 100.0500, L501.5200, L500.2500 #### [facility] [address] [place], [address] Magnesium (Unsp spec) [Mass/Vol] 1.7 mg/dL 1.5-2.2 [facility] Mean corpuscular hemoglobin (MCH) determinationOrdered By: Leena Corado on 01-24-2025 MCH (RBC) [Entitic mass] 27.7 pg Normal 27.0-32.0 [facility] Comment on above: Order Comment: 104.1 Performed By: #### L 100.0500, L501.5200, L500.2500 #### [facility] [address] [place], [address] Mean corpuscular hemoglobin concentration (MCHC) determinationOrdered By: Leena Corado on 01-24-2025 MCHC (RBC) [Mass/Vol] 31.6 g/dL Low 32-36 [facility] Comment on above: Order Comment: 104.1 Performed By: #### L 100.0500, L501.5200, L500.2500 #### [facility] [address] [place], [place], [id number] Mean platelet volume determi nationOrdered By: Leena Corado on 01-24-2025 Platelet mean volume (Bld) [Entitic vol] 10.7 fL Normal 6.2-12.0 [facility] Comment on above: Order Comment: 104.1 Performed By: #### L 100.0500, L501.5200, L500.2500 #### [facility] [address] [place], [place], [id number] Platelet countOrdered By: Malik Corado on 01-24-2025 Platelets (Bld) [#/Vol] 519 10*3/uL High 150-450 [facility] Comment on above: Order Comment: 104.1 Performed By: #### L 100.0500, L501.5200, L500.2500 #### [facility] [address] [place], [address] Serum creatinine measurement (mass/volume)Ordered By: Leena Corado on 01-24-2025 Creatinine [Mass/Vol] 0.95 mg/dL Normal 0.70-1.20 [facility] Comment on above: Order Comment: 104.1 Performed By: #### L 100.0500, L501.5200, L500.2500 #### [facility] [address] [place], [address] Serum glucose measurement (m ass/volume)Ordered By: Leena Corado on 01-24-2025 Glucose [Mass/Vol] 153 mg/dL High 70-99 [facility] Comment on above: Order Comment: 104.1 Performed By: #### L 100.0500, L501.5200, L500.2500 #### [facility] [address] [place], [address] Serum or plasma anion gap de termination (moles/volume)Ordered By: Leena Corado on 01-24-2025 Anion gap [Moles/Vol] 11 mmol/L Normal 5-15 [facility] Comment on above: Order Comment: 104.1 Performed By: #### L 100.0500, L501.5200, L500.2500 #### [facility] [address] [place], [address] Serum or plasma calcium harish urement (mass/volume)Ordered By: Leena Corado on 01-24-2025 Calcium [Mass/Vol] 9.5 mg/dL Normal 7.6-11.0 [facility] Comment on above: Order Comment: 104.1 Performed By: #### L 100.0500, L501.5200, L500.2500 #### [facility] [address] [place], [address] Serum or plasma potassium me asurementOrdered By: Leena Corado on 01-24-2025 Potassium [Moles/Vol] 4.9 mmol/L Normal 3.3-5.1 [facility] Comment on above: Order Comment: 104.1 Performed By: #### L 100.0500, L501.5200, L500.2500 #### [facility] [address] [place], [address] Serum or plasma sodium measu rement (moles/volume)Ordered By: Leena Corado on 01-24-2025 Sodium [Moles/Vol] 136 mmol/L Normal 133-145 [facility] Comment on above: Order Comment: 104.1 Performed By: #### L 100.0500, L501.5200, L500.2500 #### [facility] [address] [place], [place], [id number] Serum or plasma urea nitroge n measurement (mass/volume)Ordered By: Leenawendy Corado on 01-24-2025 Urea nitrogen [Mass/Vol] 29 mg/dL High 4-19 [facility] Comment on above: Order Comment: 104.1 Performed By: #### L 100.0500, L501.5200, L500.2500 #### [facility] [address] [place], [address] White blood cell (WBC) count Ordered By: Leena Corado on 01-24-2025 WBC (Bld) [#/Vol] 15.3 10*3/uL High 4.4-11.0 [facility] Comment on above: Order Comment: 104.1 Performed By: #### L 100.0500, L501.5200, L500.2500 #### [facility] [address] [place], [place], [id number] 12 Lead EKGon 01-23-2025 12 Lead EKG [facility] [address] [place] [address] 12 Lead EKG 01/23/25 1040 MR#: [id number] Acct: [id number] Name: FARZANA HERRON Rep #: [id number] : 1940 84 From: Kannan Pollock MD Attending Dr: Status: DEP ER Ordering Dr: Frederic Garcia MD Date: 01/23/25 Location: ED Sex: F C Admitted: Test Reason : SOB Blood Pressure : */* mmHG Vent. Rate : 87 BPM Atrial Rate : 87 BPM P-R Int : 164 ms QRS Dur : 66 ms QT Int : 344 ms P-R-T Axes : 34 -21 57 degrees QTcB Int : 413 ms Normal sinus rhythm with sinus arrhythmia Inferior infarct , age undetermined Abnormal ECG Confirmed by Kannan Pollock ([id number]), story editor SAMIA CASTRO ([id number]) on 01/24/2025 9:44:31 AM Referred By: AR/AK Confirmed By: Kannan Pollock 01/24/25 0944 Date Kannan Pollock MD CC: Dr. Frederic Garcia MD; Dr. Wayne Conde DO Signed Normal [facility] Absolute lymphocyte countOrd ered By: Frederic Garcia on 01-23-2025 Lymphocytes Auto (Unsp spec) [#/Vol] 1.61 10*3/uL 0.83-4.51 [facility] Absolute neutrophil countOrd ered By: Frederic Garcia on 01-23-2025 Neutrophils (Bld) [#/Vol] 6.8 10*3/uL 2.0-7.7 [facility] Arterial patency Wrist arter y --pre arterial punctureOrdered By: Frederic Garcia on 01-23-2025 Destiney Test Positive [facility] Assessment of wrist artery p atency prior to arterial punctureOrdered By: Frederic Garcia on 01-23-2025 Arterial patency Wrist artery --pre arterial puncture Positive [facility] Automated lymphocyte count a s percentage of total leukocytesOrdered By: Frederic Garcia on 01-23-2025 Lymphocytes/100 WBC Auto (Unsp spec) 16.6 % Low 19-41 [facility] BUN/creatinine ratioOrdered By: Frederic Gacria on 01-23-2025 Urea nitrogen/Creatinine [Mass ratio] 27.5 mg/mg High 10-20 [facility] Base excess Calc (BldV) [Mol es/Vol]Ordered By: Frederic Garcia on 01-23-2025 Blood Gas Base Excess 5 mmol/L High -2-2 [facility] Basic Metabolic Profile (BMP )on 01-23-2025 Anion gap [Moles/Vol] 12 mmol/L Normal 5-15 [facility] Comment on above: Performed By: #### L 100.0500, L501.9520, L500.2500 #### [facility] [address] [place], [address] BUN/CRE 27.5 RATIO High 10-20 [facility] Comment on above: Performed By: #### L 100.0500, L501.9520, L500.2500 #### [facility] [address] [place], [address] Calcium [Mass/Vol] 9.6 mg/dL Normal 7.6-11.0 [facility] Comment on above: Performed By: #### L 100.0500, L501.9520, L500.2500 #### [facility] [address] [place], [address] Chloride [Moles/Vol] 96 mmol/L Normal 96-108 [facility] Comment on above: Performed By: #### L 100.0500, L501.9520, L500.2500 #### [facility] [address] [place], [address] CO2 [Moles/Vol] 23.9 mmol/L Normal 22.0-29.0 [facility] Comment on above: Performed By: #### L 100.0500, L501.9520, L500.2500 #### [facility] [address] [place], [address] Creatinine [Mass/Vol] 0.95 mg/dL Normal 0.70-1.20 [facility] Comment on above: Performed By: #### L 100.0500, L501.9520, L500.2500 #### [facility] [address] [place], [address] ECRCL 31.10 ml/min Low 50-250 [facility] Comment on above: Performed By: #### L 100.0500, L501.9520, L500.2500 #### [facility] [address] [place], [address] GFR/1.73 sq M.predicted among non-blacks MDRD (S/P/Bld) [Vol rate/Area] 59 mL/min/{1.73_m2} Low >60 [facility] Comment on above: Result Comment: mL/m in/1.73m2 CKD-EPI Creatinine Equation (2020) Performed By: #### L 100.0500, L501.9520, L500.2500 #### [facility] [address] [place], [address] Glucose [Mass/Vol] 121 mg/dL High 70-99 [facility] Comment on above: Performed By: #### L 100.0500, L501.9520, L500.2500 #### [facility] [address] [place], [address] Potassium [Moles/Vol] 5.1 mmol/L Normal 3.3-5.1 [facility] Comment on above: Performed By: #### L 100.0500, L501.9520, L500.2500 #### [facility] [address] [place], [address] Sodium [Moles/Vol] 132 mmol/L Low 133-145 [facility] Comment on above: Performed By: #### L 100.0500, L501.9520, L500.2500 #### [facility] [address] [place], [address] Urea nitrogen [Mass/Vol] 26 mg/dL High 4-19 [facility] Comment on above: Performed By: #### L 100.0500, L501.9520, L500.2500 #### [facility] [address] [place], [address] Basophil percentageOrdered B y: Frederic Garcia on 01-23-2025 Basophils/100 WBC (Bld) 0.5 % 0-1 [facility] Blood Gases by CPSon 025 DESTINEY TEST Positive Normal [facility] Comment on above: Performed By: #### L 9000.0800 #### [facility] [address] [place], [address] Base excess Calc (Bld) [Moles/Vol] 5 mmol/L High -2 to +2 [facility] Comment on above: Performed By: #### L 9000.0800 #### [facility] [address] [place], [address] Blood Gas Type ART [facility] Comment on above: Performed By: #### L 9000.0800 #### [facility] [address] [place], [address] CO2 [Moles/Vol] 31 mmol/L Normal [facility] Comment on above: Performed By: #### L 9000.0800 #### [facility] [address] [place], [address] FI02 3.0 [facility] Comment on above: Performed By: #### L 9000.0800 #### [facility] [address] [place], [address] HCO3 (Bld) [Moles/Vol] 29.6 mmol/L High 22-26 [facility] Comment on above: Performed By: #### L 9000.0800 #### [facility] [address] [place], [address] Mode Not entered [facility] Comment on above: Performed By: #### L 9000.0800 #### [facility] [address] [place], [address] O2 Delivery Dev Cannula Normal [facility] Comment on above: Performed By: #### L 9000.0800 #### [facility] [address] [place], [address] pCO2 45.0 mmHg Normal 35-45 [facility] Comment on above: Performed By: #### L 9000.0800 #### [facility] [address] [place], [address] pH (Bld) 7.43 [pH] Normal 7.35-7.45 [facility] Comment on above: Performed By: #### L 9000.0800 #### [facility] [address] [place], [address] PO2 59 mmHG Low 75-100 [facility] Comment on above: Performed By: #### L 9000.0800 #### [facility] [address] [place], [address] SITE R Radial Normal [facility] Comment on above: Performed By: #### L 9000.0800 #### [facility] [address] [place], [address] SO2 91 Low 95-99 [facility] Comment on above: Performed By: #### L 9000.0800 #### [facility] [address] [place], [address] Blood base excess determinat ionOrdered By: Frederic Garcia on 01-23-2025 Base excess Calc (BldV) [Moles/Vol] 5 mmol/L [facility] -2-2 [facility] Blood bicarbonate measuremen tOrdered By: Frederic Garcia on 01-23-2025 Blood Gas Bicarbonate Actual 29.6 mmol/L High [facility] HCO3 (Bld) [Moles/Vol] 29.6 mmol/L [facility] CBC W/Diff, Automatedon Absolute Lymph 1.61 X10 3/uL Normal 0.83-4.51 [facility] Comment on above: Performed By: #### L 100.0500, L501.9520, L500.2500 #### [facility] [address] [place], [address] Absolute Neut 6.8 X10 3/uL Normal 2.0-7.7 [facility] Comment on above: Performed By: #### L 100.0500, L501.9520, L500.2500 #### [facility] [address] [place], [address] Basophils/100 WBC (Bld) 0.5 % Normal 0-1 [facility] Comment on above: Performed By: #### L 100.0500, L501.9520, L500.2500 #### [facility] [address] [place], [address] Eosinophils/100 WBC (Bld) 0.3 % Normal 0-5 [facility] Comment on above: Performed By: #### L 100.0500, L501.9520, L500.2500 #### [facility] [address] [place], [address] Erythrocyte distribution width (RBC) [Ratio] 17.3 % High 11.6-14.6 [facility] Comment on above: Performed By: #### L 100.0500, L501.9520, L500.2500 #### [facility] [address] [place], [address] Hematocrit (Bld) [Volume fraction] 33.1 % Low 37-47 [facility] Comment on above: Performed By: #### L 100.0500, L501.9520, L500.2500 #### [facility] [address] [place], [address] Hemoglobin (Bld) [Mass/Vol] 10.2 g/dL Low 12.0-15.0 [facility] Comment on above: Performed By: #### L 100.0500, L501.9520, L500.2500 #### [facility] [address] [place], [address] IG% 0.300 Normal 0.0-0.9 [facility] Comment on above: Result Comment: IG% - Immature Granulocytes (promyelocytes, myelocytes and metamyelocytes) > 1% indicates that a LEFT SHIFT is Present. Performed By: #### L 100.0500, L501.9520, L500.2500 #### [facility] [address], [address] Lymphocytes/100 WBC (Bld) 16.6 % Low 19-41 [facility] Comment on above: Performed By: #### L 100.0500, L501.9520, L500.2500 #### [facility] [address], [address] MCH (RBC) [Entitic mass] 27.7 pg Normal 27.0-32.0 [facility] Comment on above: Performed By: #### L 100.0500, L501.9520, L500.2500 #### [facility] [address] [place], [address] MCHC (RBC) [Mass/Vol] 30.8 g/dL Low 32-36 [facility] Comment on above: Performed By: #### L 100.0500, L501.9520, L500.2500 #### [facility] [address] [place], [address] MCV (RBC) [Entitic vol] 89.9 fL Normal 81-99 [facility] Comment on above: Performed By: #### L 100.0500, L501.9520, L500.2500 #### [facility] [address] [place], [address] Monocytes/100 WBC (Bld) 11.8 % High 0-10 [facility] Comment on above: Performed By: #### L 100.0500, L501.9520, L500.2500 #### [facility] [address] [place], [address] Neutrophils/100 WBC (Bld) 70.5 % High 47-70 [facility] Comment on above: Performed By: #### L 100.0500, L501.9520, L500.2500 #### [facility] [address] [place], [address] Nucleated RBC (Bld) [#/Vol] 0 10*3/uL Normal 0-5 [facility] Comment on above: Performed By: #### L 100.0500, L501.9520, L500.2500 #### [facility] [address] [place], [address] Platelet mean volume (Bld) [Entitic vol] 10.5 fL Normal 6.2-12.0 [facility] Comment on above: Performed By: #### L 100.0500, L501.9520, L500.2500 #### [facility] [address] [place], [address] Platelets (Bld) [#/Vol] 483 10*3/uL High 150-450 [facility] Comment on above: Performed By: #### L 100.0500, L501.9520, L500.2500 #### [facility] [address] [place], [address] RBC (Bld) [#/Vol] 3.68 10*6/uL Low 4.2-5.4 [facility] Comment on above: Performed By: #### L 100.0500, L501.9520, L500.2500 #### [facility] [address] [place], [address] RDW SD 56.1 fl High 35.1-43.9 [facility] Comment on above: Performed By: #### L 100.0500, L501.9520, L500.2500 #### [facility] [address] [place], [address] WBC (Bld) [#/Vol] 9.7 10*3/uL Normal 4.4-11.0 [facility] Comment on above: Performed By: #### L 100.0500, L501.9520, L500.2500 #### [facility] [address] [place], [address] CTA Chest W/WO Contraston CTA Chest W/WO Contrast [facility] Imaging Services [address] [place] [address] CTA Chest W/WO Contrast MR#: [id number] Acct: [id number] Name: FARZANA HERRON Rep #: [id number] : 1940 F 84 From: Gage Schmidt MD PCP: Dr. Wayne Conde, Status: DEP ER Study: CTA Chest W/WO Contrast Date of Exam: 01/23/25 Exam# [id number] Ordering Dr: Frederic Garcia MD PROCEDURE: CTA CHEST W/WO CONTRAST REASON FOR EXAM: Hypoxia TECHNIQUE: CTA imaging of the chest with intravenous contrast. 3D reconstructions. COMPARISON: None. FINDINGS: Hardware: None. Lymph nodes: No mediastinal hilar or axillary lymphadenopathy. Heart: Coronary artery calcifications are noted. RV/LV Diameter Ratio: N/A Thoracic Aorta: No thoracic aortic aneurysm or dissection. Pulmonary Vessels: No evidence of acute pulmonary emboli through the major subsegmental branches. Most Proximal Level of Embolus (if embolus present): N/A Lungs and Airways: Bibasilar atelectasis. Mild diffuse emphysematous changes. Left upper lobe cavitary lesion with spiculations measuring 15 x 16 mm. Pleura: No pleural effusion. No pneumothorax. Upper Abdomen: Visualized portions of the upper abdominal viscera are unremarkable. Bones: Bone windows are unremarkable. Hernia: Large hiatal hernia CT/CTA Chest W/WO Contrast IMPRESSION: 1. No CT evidence of acute pulmonary embolism. 2. Mild diffuse emphysematous changes 3. Left upper lobe spiculated cavitary lesion suspicious for primary neoplasm. 4. Large hiatal hernia One or more dose reduction techniques were used (e.g., Automated exposure control, adjustment of the mA and/or kV according to patient size, use of iterative reconstruction technique). Reading Location: [facility] CC: Dr. Frederic Garcia MD; Dr. 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 Normal [facility] Carbon dioxide measurementOr dered By: Frederic Garcia on 01-23-2025 CO2 [Moles/Vol] 23.9 mmol/L 22.0-29.0 [facility] Chloride measurementOrdered By: Frederic Garcia on 01-23-2025 Chloride [Moles/Vol] 96 mmol/L 96-108 [facility] Determination of fraction of inspired oxygenOrdered By: Frederic Garcia on 01-23-2025 Blood Gas Oxygen Percent 3.0 [facility] Emergency Department Summary on 01-23-2025 Emergency Department Summary [facility] Medical Records Department [address] [place] [address] Emergency Department Summary 01/23/25 MR#: [id number] Acct: [id number] Name: FARZANA HERRON Rep #: [id number] : 1940 84 From: Frederic Garcia MD PCP: Dr. Wayne Conde, Status:DEP ER Location: ED HPI History of Present Illness Chief Complaint: Shortness of Breath Narrative Narrative: History and physical limited secondary to dementia. Patient with past medical history of left humerus fracture presents with reported pulse ox in the 80s. Reported at a SNF that she does not wear oxygen usually. In review of her problem list she does have history of COPD. Patient denies any recent fever or chills, no nausea or vomiting, no shortness of breath, no leg swelling. She is not quite sure why she is here. Additionally, on her problem list CHF is listed as well. However, this is not necessarily listed on the intermediate paperwork according to the RN. She presents because of the shortness of breath that is reported and low pulse ox in the 80s. [facility] Medical History Syncope and collapse LV dysfunction Anxiety IBS (irritable bowel syndrome) COPD (chronic obstructive pulmonary disease) Hx of myocardial infarction Arrhythmia Chronic CHF (congestive heart failure) Alzheimer's dementia Fx humerus shaft-closed Osteoarthritis Depressed HLD (hyperlipidemia) Coronary artery disease Thyroid disease Ambulatory dysfunction Generalized weakness Hypokalemia GERD (gastroesophageal reflux disease) Elevated BUN Fall Leukocytosis Dementia Hypoxia Hypertension Physical debility Closed fracture of humerus Home Medications ???Medication ???Instructions ???Recorded ???Last Taken ???Type aspirin 81 mg tablet,delayed 81 mg PO DAILY Heart health Unknown History release clopidogrel 75 mg tablet 75 mg PO DAILY Blood thinner 01/02 Unknown History donepezil 5 mg tablet 5 mg PO QHS BP 01/02/25 Unknown Hi story ergocalciferol (vitamin D2) 1,250 1,250 mcg PO FR supplement Unknown History mcg (50,000 unit) capsule gabapentin 300 mg capsule 300 mg PO BID 01/02/25 Unknown His tory isosorbide mononitrate 60 mg 60 mg PO DAILY Heart failure 01/02 Unknown History tablet,extended release 24 hr levothyroxine 50 mcg tablet 50 mcg PO DAILY 01/02/25 Unknown H istory losartan 25 mg tablet 25 mg PO DAILY BP 01/02/25 Unknown History mirtazapine 7.5 mg tablet 7.5 mg PO QHS 01/02/25 Unknown His tory pantoprazole 40 mg tablet,delayed 40 mg PO QHS GERD 01/02/25 Unknow n History release cyanocobalamin (vitamin B-12) 1,000 mcg PO DAILY 01/04/25 Unknow n History 1,000 mcg tablet acetaminophen 500 mg tablet 1,000 mg (2 x 500 mg) PO Q8 PRN Unknown Rx Pain 1-5/10 or Fever #10 tabs sucralfate 1 gram tablet 1 g PO BID 01/20/25 Unknown Histor y acetaminophen 325 mg capsule 650 mg PO Q4H PRN fever 01/23/25 U nknown History acetaminophen 650 mg rectal 650 mg DE Q4H 01/23/25 Unknown His tory suppository albuterol sulfate 0.63 mg/3 mL 0.63 mg continuous nebulization Unknown History solution for nebulization Q6H PRN shortness of breath or wheezing aluminum-mag hydroxide-simethicone 30 ml PO Q4H PRN indigestion 01/18 Unknown History 200 mg-200 mg-20 mg/5 mL oral susp (Mintox) atorvastatin 10 mg tablet 10 mg PO QHS 01/23/25 Unknown Hist ory calcium carbonate (Calcium 600) 600 mg PO DAILY 01/23/25 Unknown H istory guaifenesin 400 mg PO TID 01/23/25 Unknown His tory guaifenesin 100 mg/5 mL oral 200 mg PO Q4H PRN congestion 01/23 Unknown History liquid (Adult Tussin Chest Congestion) magnesium hydroxide 400 mg/5 mL 30 ml PO DAILY PRN constipation Unknown History oral suspension (Milk of Magnesia) magnesium oxide 400 mg (241.3 mg 400 mg PO QHS 01/23/25 Unknown His tory magnesium) tablet (MagOx) metoprolol tartrate 50 mg tablet 50 mg PO BID 01/23/25 Unknown Hist ory omega 4-sxp-jax-fish oil 300 1 cap PO DAILY 01/23/25 Unknown Hi story mg-1,000 mg capsule (Fish Oil) tramadol 50 mg tablet 50 mg PO Q8H PRN pain 01/23/25 Unk nown History Allergy/AdvReac Type Severity Reaction Status Date / Time codeine AdvReac Intermediate GI Upset Verified 01/20/25 15:03 Family History Mother Cancer Father Heart disease Sister Diabetes COPD (chronic obstructive pulmonary disease) Surgical History Hx of bilateral cataract extraction History of repair of hiatal hernia Hx laparoscopic cholecystectomy History of carpal tunnel release Hx of coronary artery balloon dilation ( 06/2016) S (more content not included)... Normal [facility] Eosinophil percentageOrdered By: Frederic Garcia on 01-23-2025 Eosinophils/100 WBC (Bld) 0.3 % 0-5 [facility] Erythrocyte distribution wid th ratioOrdered By: Frederic Garcia on 01-23-2025 Erythrocyte distribution width (RBC) [Ratio] 17.3 % High 11.6-14.6 [facility] Erythrocyte distribution wid th standard deviationOrdered By: Frederic Garcia on 01-23-2025 Erythrocyte distribution width (RBC) [Entitic vol] 56.1 fL High 35.1-43.9 [facility] Erythrocyte distribution width (RBC) [Ratio] 56.1 fl High 35.1-43.9 [facility] Estimation of creatinine aneesh aranceOrdered By: Frederic Garcia on 01-23-2025 Estimated Creatinine Clearance Calc 31.10 ml/min Low 50-250 [facility] GFR/1.73 sq M.predicted donovan g non-blacks MDRD (S/P/Bld) [Vol rate/Area]Ordered By: Frederic Garcia on 01-23-2025 Estimated GFR (MDRD) Non-Af Amer 59 Low >60 [facility] Comment on above: mL/min/1.73m2 CKD-EP I Creatinine Equation (2020) Glomerular filtration rate ( GFR) estimation/1.73 sq m using serum, plasma, or whole bOrdered By: Frederic Garcia on 01-23-2025 GFR/1.73 sq M.predicted among non-blacks MDRD (S/P/Bld) [Vol rate/Area] 59 mL/min/{1.73_m2} Low >60 [facility] Comment on above: mL/min/1.73m2 CKD-EP I Creatinine Equation (2020) Hematocrit Auto (Bld) [Volum e fraction]Ordered By: Frederic Garcia on 01-23-2025 Hematocrit (Bld) [Volume fraction] 33.1 % Low 37-47 [facility] Hemoglobin measurementOrdere d By: Frederic Garcia on 01-23-2025 Hemoglobin (Bld) [Mass/Vol] 10.2 g/dL Low 12.0-15.0 [facility] Immature granulocytes/100 WB C Auto (Bld)Ordered By: Frederic Garcia on 01-23-2025 Immature granulocytes/100 WBC (Bld) 0.300 % 0.0-0.9 [facility] Comment on above: IG% - Immature Granu locytes (promyelocytes, myelocytes and metamyelocytes) > 1% indicates that a LEFT SHIFT is Present. Influenza virus A and B and SARS-CoV-2 (COVID-19) and Respiratory syncytial virus RNAOrdered By: Frederic Garcia on 01-23-2025 SARS-CoV-2 (COVID-19) RNA SARY+probe Ql (Unsp spec) [facility] L503.7505on 01-23-2025 Natriuretic peptide B (Bld) [Mass/Vol] 764 pg/mL Normal <=1800 [facility] Comment on above: Result Comment: Hear t Failure Unlikely: < 300 pg/mL Heart Failure Likely < 50 Years: > 450 pg/mL 50-75 Years: > 900 pg/mL >75 Years: > 1800 pg/mL Performed By: #### L 100.0500, L501.9520, L500.2500 #### [facility] [address] [place], [address] Laboratory - Chemistry and C hemistry - challengeOrdered By: Frederic Garcia on 01-23-2025 Natriuretic peptide B (Bld) [Mass/Vol] 764 pg/mL <1800 [facility] Comment on above: Heart Failure Unlike ly: < 300 pg/mLHeart Failure Likely< 50 Years: > 450 pg/mL50-75 Years: > 900 pg/mL>75 Years: > 1800 pg/mL Lymphocytes Auto (Unsp spec) [#/Vol]Ordered By: Frederic Garcia on 01-23-2025 Lymphocytes (Bld) [#/Vol] 1.61 10*3/uL 0.83-4.51 [facility] Lymphocytes/100 WBC Auto (Un sp spec)Ordered By: Frederic Garcia on 01-23-2025 Lymphocytes/100 WBC (Bld) 16.6 % Low 19-41 [facility] M100.678on 01-23-2025 M100.678 SARS-CoV-2 (COVID 19 ) Negative INFLUENZA A Negative INFLUENZA B Negative RSV PCR Negative Normal [facility] Comment on above: Performed By: #### L 100.0500, L501.9520, L500.2500 #### [facility] [address] [place], [place], [id number] MCV (mean corpuscular volume ) determinationOrdered By: Frederic Garcia on 01-23-2025 MCV (RBC) [Entitic vol] 89.9 fL 81-99 [facility] Mean corpuscular hemoglobin (MCH) determinationOrdered By: Frederic Garcia on 01-23-2025 MCH (RBC) [Entitic mass] 27.7 pg 27.0-32.0 [facility] Mean corpuscular hemoglobin concentration (MCHC) determinationOrdered By: Frederic Garcia on 01-23-2025 MCHC (RBC) [Mass/Vol] 30.8 g/dL Low 32-36 [facility] Mean platelet volume determi nationOrdered By: Frederic Garcia on 01-23-2025 Platelet mean volume (Bld) [Entitic vol] 10.5 fL 6.2-12.0 [facility] Measurement, pHOrdered By: A genoveva Garcia on 01-23-2025 pH (Unsp spec) 7.43 [pH] 7.35-7.45 [facility] Monocyte percentageOrdered B y: Frederic Garcia on 01-23-2025 Monocytes/100 WBC (Bld) 11.8 % High 0-10 [facility] Neutrophil percentageOrdered By: Frederic Garcia on 01-23-2025 Neutrophils/100 WBC (Bld) 70.5 % High 47-70 [facility] No Panel InformationOrdered By: Frederic Garcia on 01-23-2025 Blood Gas Sample Site R Radial [facility] Blood Gas Specimen Type ART [facility] Blood Gas Vent Mode Not entered [facility] Oxygen Delivery Device Cannula [facility] Nucleated red blood cell per centageOrdered By: Frederic Garcia on 01-23-2025 Nucleated RBC/100 WBC (Bld) [Ratio] 0 % 0-5 [facility] Oxygen saturation measuremen tOrdered By: Frederic Garcia on 01-23-2025 Blood Gas Oxygen Saturation 91 % Low 95-99 [facility] Partial pressure of carbon d ioxide measurementOrdered By: Frederic Garcia on 01-23-2025 Arterial Blood Partial Pressure CO2 45.0 mmHg 35-45 [facility] Partial pressure of oxygen m easurementOrdered By: Frederic Garcia on 01-23-2025 Arterial Blood Partial Pressure O2 59 mmHG Low 75-100 [facility] Platelet countOrdered By: Champ Garcia on 01-23-2025 Platelets (Bld) [#/Vol] 483 10*3/uL High 150-450 [facility] RBC Auto (Bld) [#/Vol]Ordere d By: Frederic Garcia on 01-23-2025 RBC (Bld) [#/Vol] 3.68 10*6/uL Low 4.2-5.4 [facility] Serum creatinine measurement (mass/volume)Ordered By: Frederic Garcia on 01-23-2025 Creatinine [Mass/Vol] 0.95 mg/dL 0.70-1.20 [facility] Serum glucose measurement (m ass/volume)Ordered By: Frederic Garcia on 01-23-2025 Glucose [Mass/Vol] 121 mg/dL High 70-99 [facility] Serum or plasma anion gap de termination (moles/volume)Ordered By: Frederic Garcia on 01-23-2025 Anion gap [Moles/Vol] 12 mmol/L 5-15 [facility] Serum or plasma calcium harish urement (mass/volume)Ordered By: Frederic Garcia on 01-23-2025 Calcium [Mass/Vol] 9.6 mg/dL 7.6-11.0 [facility] Serum or plasma potassium me asurementOrdered By: Frederic Garcia on 01-23-2025 Potassium [Moles/Vol] 5.1 mmol/L 3.3-5.1 [facility] Serum or plasma sodium measu rement (moles/volume)Ordered By: Frederic Garcia on 01-23-2025 Sodium [Moles/Vol] 132 mmol/L Low 133-145 [facility] Serum or plasma urea nitroge n measurement (mass/volume)Ordered By: Frederic Garcia on 01-23-2025 Urea nitrogen [Mass/Vol] 26 mg/dL High 4-19 [facility] Total carbon dioxide measure mentOrdered By: Frederic Garcia on 01-23-2025 Blood Gas Total CO2 31 mmol/L [facility] CO2 [Moles/Vol] 31 mmol/L [facility] White blood cell (WBC) count Ordered By: Frederic Garcia on 01-23-2025 WBC (Bld) [#/Vol] 9.7 10*3/uL 4.4-11.0 [facility] pH (Unsp spec)Ordered By: Champ Garcia on 01-23-2025 Blood Gas pH 7.43 7.35-7.45 [facility] BUN/creatinine ratioOrdered By: Leena Corado on 01-20-2025 Urea nitrogen/Creatinine [Mass ratio] 28.4 mg/mg High 10-20 [facility] Basic Metabolic Profile (BMP )on 01-20-2025 Anion gap [Moles/Vol] 10 mmol/L Normal 5-15 [facility] Comment on above: Order Comment: 508.1 Performed By: #### L 100.0500, L501.9520, L500.2500 #### [facility] [address] [place], [address] BUN/CRE 28.4 RATIO High 10-20 [facility] Comment on above: Order Comment: 508.1 Performed By: #### L 100.0500, L501.9520, L500.2500 #### [facility] [address] [place], [address] Calcium [Mass/Vol] 9.3 mg/dL Normal 7.6-11.0 [facility] Comment on above: Order Comment: 508.1 Performed By: #### L 100.0500, L501.9520, L500.2500 #### [facility] [address] [place], [address] Chloride [Moles/Vol] 99 mmol/L Normal 96-108 [facility] Comment on above: Order Comment: 508.1 Performed By: #### L 100.0500, L501.9520, L500.2500 #### [facility] [address] [place], [address] CO2 [Moles/Vol] 23.9 mmol/L Normal 22.0-29.0 [facility] Comment on above: Order Comment: 508.1 Performed By: #### L 100.0500, L501.9520, L500.2500 #### [facility] [address] [place], [address] Creatinine [Mass/Vol] 0.8 mg/dL Normal 0.6-1.0 [facility] Comment on above: Order Comment: 508.1 Performed By: #### L 100.0500, L501.9520, L500.2500 #### [facility] [address] [place], [address] GFR/1.73 sq M.predicted among non-blacks MDRD (S/P/Bld) [Vol rate/Area] 73 mL/min/{1.73_m2} Normal >60 [facility] Comment on above: Order Comment: 508.1 Result Comment: mL/m in/1.73m2 CKD-EPI Creatinine Equation (2020) Performed By: #### L 100.0500, L501.9520, L500.2500 #### [facility] [address] [place], [address] Glucose [Mass/Vol] 93 mg/dL Normal 70-99 [facility] Comment on above: Order Comment: 508.1 Performed By: #### L 100.0500, L501.9520, L500.2500 #### [facility] [address] [place], [address] Potassium [Moles/Vol] 4.8 mmol/L Normal 3.3-5.1 [facility] Comment on above: Order Comment: 508.1 Performed By: #### L 100.0500, L501.9520, L500.2500 #### [facility] [address] [place], [address] Sodium [Moles/Vol] 133 mmol/L Normal 133-145 [facility] Comment on above: Order Comment: 508.1 Performed By: #### L 100.0500, L501.9520, L500.2500 #### [facility] [address] [place], [address] Urea nitrogen [Mass/Vol] 22 mg/dL High 4-19 [facility] Comment on above: Order Comment: 508.1 Performed By: #### L 100.0500, L501.9520, L500.2500 #### [facility] [address] [place], [address] CBC-Complete Blood Cnt No Di ffon 01-20-2025 Erythrocyte distribution width (RBC) [Ratio] 17.4 % High 11.6-14.6 [facility] Comment on above: Order Comment: 508.1 Performed By: #### L 100.0500, L501.9520, L500.2500 #### [facility] [address] [place], [address] Hematocrit (Bld) [Volume fraction] 31.6 % Low 37-47 [facility] Comment on above: Order Comment: 508.1 Performed By: #### L 100.0500, L501.9520, L500.2500 #### [facility] [address] [place], [address] Hemoglobin (Bld) [Mass/Vol] 9.8 g/dL Low 12.0-15.0 [facility] Comment on above: Order Comment: 508.1 Performed By: #### L 100.0500, L501.9520, L500.2500 #### [facility] [address] [place], [address] MCH (RBC) [Entitic mass] 27.7 pg Normal 27.0-32.0 [facility] Comment on above: Order Comment: 508.1 Performed By: #### L 100.0500, L501.9520, L500.2500 #### [facility] [address] [place], [address] MCHC (RBC) [Mass/Vol] 31.0 g/dL Low 32-36 [facility] Comment on above: Order Comment: 508.1 Performed By: #### L 100.0500, L501.9520, L500.2500 #### [facility] [address] [place], [address] MCV (RBC) [Entitic vol] 89.3 fL Normal 81-99 [facility] Comment on above: Order Comment: 508.1 Performed By: #### L 100.0500, L501.9520, L500.2500 #### [facility] [address] [place], [address] Platelet mean volume (Bld) [Entitic vol] 10.4 fL Normal 6.2-12.0 [facility] Comment on above: Order Comment: 508.1 Performed By: #### L 100.0500, L501.9520, L500.2500 #### [facility] [address] [place], [address] Platelets (Bld) [#/Vol] 543 10*3/uL High 150-450 [facility] Comment on above: Order Comment: 508.1 Performed By: #### L 100.0500, L501.9520, L500.2500 #### [facility] [address] [place], [address] RBC (Bld) [#/Vol] 3.54 10*6/uL Low 4.2-5.4 [facility] Comment on above: Order Comment: 508.1 Performed By: #### L 100.0500, L501.9520, L500.2500 #### [facility] [address] [place], [address] RDW SD 54.4 fl High 35.1-43.9 [facility] Comment on above: Order Comment: 508.1 Performed By: #### L 100.0500, L501.9520, L500.2500 #### [facility] [address] [place], [address] WBC (Bld) [#/Vol] 4.9 10*3/uL Normal 4.4-11.0 [facility] Comment on above: Order Comment: 508.1 Performed By: #### L 100.0500, L501.9520, L500.2500 #### [facility] [address] [place], [address] Carbon dioxide measurementOr dered By: Leena Corado on 01-20-2025 CO2 [Moles/Vol] 23.9 mmol/L 22.0-29.0 [facility] Chloride measurementOrdered By: Leenawendy Corado on 01-20-2025 Chloride [Moles/Vol] 99 mmol/L 96-108 [facility] Creatinine [Moles/Vol]Ordere d By: Leena Corado on 01-20-2025 Creatinine [Mass/Vol] 0.8 mg/dL 0.6-1.0 [facility] Erythrocyte distribution wid th ratioOrdered By: Leena Corado on 01-20-2025 Erythrocyte distribution width (RBC) [Ratio] 17.4 % High 11.6-14.6 [facility] Erythrocyte distribution wid th standard deviationOrdered By: Leena Corado on 01-20-2025 Erythrocyte distribution width (RBC) [Entitic vol] 54.4 fL High 35.1-43.9 [facility] Erythrocyte distribution width (RBC) [Ratio] 54.4 fl High 35.1-43.9 [facility] GFR/1.73 sq M.predicted donovan g non-blacks MDRD (S/P/Bld) [Vol rate/Area]Ordered By: Leena Corado on 01-20-2025 Estimated GFR (MDRD) Non-Af Amer 73 >60 [facility] Comment on above: mL/min/1.73m2 CKD-EP I Creatinine Equation (2020) Glomerular filtration rate ( GFR) estimation/1.73 sq m using serum, plasma, or whole bOrdered By: Leena Corado on 01-20-2025 GFR/1.73 sq M.predicted among non-blacks MDRD (S/P/Bld) [Vol rate/Area] 73 mL/min/{1.73_m2} >60 [facility] Comment on above: mL/min/1.73m2 CKD-EP I Creatinine Equation (2020) Hematocrit Auto (Bld) [Volum e fraction]Ordered By: Leena Corado on 01-20-2025 Hematocrit (Bld) [Volume fraction] 31.6 % Low 37-47 [facility] Hemoglobin measurementOrdere d By: Leena Corado on 01-20-2025 Hemoglobin (Bld) [Mass/Vol] 9.8 g/dL Low 12.0-15.0 [facility] MCV (mean corpuscular volume ) determinationOrdered By: Leena Corado on 01-20-2025 MCV (RBC) [Entitic vol] 89.3 fL 81-99 [facility] Magnesiumon 01-20-2025 Magnesium [Mass/Vol] 1.3 mg/dL Low 1.5-2.2 [facility] Comment on above: Order Comment: 508.1 Performed By: #### L 100.0500, L501.9520, L500.2500 #### [facility] [address] [place] [address], [address] Magnesium (Unsp spec) [Mass/ Vol]Ordered By: Leena Corado on 01-20-2025 Magnesium [Mass/Vol] 1.3 mg/dL Low 1.5-2.2 [facility] Magnesium measurement (mass/ volume)Ordered By: Leena Corado on 01-20-2025 Magnesium (Unsp spec) [Mass/Vol] 1.3 mg/dL Low 1.5-2.2 [facility] Mean corpuscular hemoglobin (MCH) determinationOrdered By: Leena Corado on 01-20-2025 MCH (RBC) [Entitic mass] 27.7 pg 27.0-32.0 [facility] Mean corpuscular hemoglobin concentration (MCHC) determinationOrdered By: Leena Corado on 01-20-2025 MCHC (RBC) [Mass/Vol] 31.0 g/dL Low 32-36 [facility] Mean platelet volume determi nationOrdered By: Leena Corado on 01-20-2025 Platelet mean volume (Bld) [Entitic vol] 10.4 fL 6.2-12.0 [facility] Platelet countOrdered By: Malik Corado on 01-20-2025 Platelets (Bld) [#/Vol] 543 10*3/uL High 150-450 [facility] RBC Auto (Bld) [#/Vol]Ordere d By: Leena Corado on 01-20-2025 RBC (Bld) [#/Vol] 3.54 10*6/uL Low 4.2-5.4 [facility] Serum glucose measurement (m ass/volume)Ordered By: Leena Corado on 01-20-2025 Glucose [Mass/Vol] 93 mg/dL 70-99 [facility] Serum or plasma anion gap de termination (moles/volume)Ordered By: Leena Corado on 01-20-2025 Anion gap [Moles/Vol] 10 mmol/L 5-15 [facility] Serum or plasma calcium harish urement (mass/volume)Ordered By: Leena Corado on 01-20-2025 Calcium [Mass/Vol] 9.3 mg/dL 7.6-11.0 [facility] Serum or plasma creatinine m easurement (moles/volume)Ordered By: Leena Corado on 01-20-2025 Creatinine [Moles/Vol] 0.8 mg/dL 0.6-1.0 [facility] Serum or plasma potassium me asurementOrdered By: Leena Corado on 01-20-2025 Potassium [Moles/Vol] 4.8 mmol/L 3.3-5.1 [facility] Serum or plasma sodium measu rement (moles/volume)Ordered By: eLena Corado on 01-20-2025 Sodium [Moles/Vol] 133 mmol/L 133-145 [facility] Serum or plasma urea nitroge n measurement (mass/volume)Ordered By: Leena Corado on 01-20-2025 Urea nitrogen [Mass/Vol] 22 mg/dL High 4-19 [facility] White blood cell (WBC) count Ordered By: Leena Corado on 01-20-2025 WBC (Bld) [#/Vol] 4.9 10*3/uL 4.4-11.0 [facility] Basic Metabolic Profile (BMP )on 01-17-2025 BUN/CRE 33.7 RATIO High 10-20 [facility] Comment on above: Order Comment: 508.1 Performed By: #### L 100.0500, L501.9520, L500.2500 #### [facility] [address] [place], [address] CA,Total 8.9 mg/dL Normal 8.5-10.1 [facility] Comment on above: Order Comment: 508.1 Performed By: #### L 100.0500, L501.9520, L500.2500 #### [facility] [address] [place], [address] Chloride [Moles/Vol] 104 mmol/L Normal 98-107 [facility] Comment on above: Order Comment: 508.1 Performed By: #### L 100.0500, L501.9520, L500.2500 #### [facility] [address] [place], [address] CO2 [Moles/Vol] 21.0 mmol/L Normal 21.0-32.0 [facility] Comment on above: Order Comment: 508.1 Performed By: #### L 100.0500, L501.9520, L500.2500 #### [facility] [address] [place], [address] Creatinine [Mass/Vol] 0.95 mg/dL Normal 0.55-1.02 [facility] Comment on above: Order Comment: 508.1 Result Comment: The validity of the calculated GFR GFRAA in patients over 70 years has not been determined. Clinical correlation is essential. Performed By: #### L 100.0500, L501.9520, L500.2500 #### [facility] [address] [place], [address] EST GFR - AA 72 mL/min Normal >60 [facility] Comment on above: Order Comment: 508.1 Result Comment: Afri can [place] GFR Calc Performed By: #### L 100.0500, L501.9520, L500.2500 #### [facility] [address] [place], [address] GAP 10 Normal 5-15 [facility] Comment on above: Order Comment: 508.1 Performed By: #### L 100.0500, L501.9520, L500.2500 #### [facility] [address] [place], [address] GFR/1.73 sq M.predicted among non-blacks MDRD (S/P/Bld) [Vol rate/Area] 59 mL/min/{1.73_m2} Low >60 [facility] Comment on above: Order Comment: 508.1 Result Comment: Non- GFR Calc Performed By: #### L 100.0500, L501.9520, L500.2500 #### [facility] [address] [place], [address] Glucose [Mass/Vol] 92 mg/dL Normal 74-106 [facility] Comment on above: Order Comment: 508.1 Performed By: #### L 100.0500, L501.9520, L500.2500 #### [facility] [address] [place], [address] Potassium [Moles/Vol] 4.6 mmol/L Normal 3.5-5.1 [facility] Comment on above: Order Comment: 508.1 Performed By: #### L 100.0500, L501.9520, L500.2500 #### [facility] [address] [place], [address] Sodium [Moles/Vol] 135 mmol/L Low 136-145 [facility] Comment on above: Order Comment: 508.1 Performed By: #### L 100.0500, L501.9520, L500.2500 #### [facility] [address] [place], [address] Urea nitrogen [Mass/Vol] 32 mg/dL High 7-18 [facility] Comment on above: Order Comment: 508.1 Performed By: #### L 100.0500, L501.9520, L500.2500 #### [facility] [address] [place], [address] Blood urea nitrogen (BUN)/cr eatinine ratioOrdered By: Leena Corado on 01-17-2025 Urea nitrogen/Creatinine [Mass ratio] 33.7 mg/mg High 10-20 [facility] CBC-Complete Blood Cnt No Di ffon 01-17-2025 Erythrocyte distribution width (RBC) [Ratio] 16.9 % High 11.6-14.6 [facility] Comment on above: Order Comment: 508.1 Performed By: #### L 100.0500, L501.9520, L500.2500 #### [facility] [address] [place], [address] Hematocrit (Bld) [Volume fraction] 29.3 % Low 37-47 [facility] Comment on above: Order Comment: 508.1 Performed By: #### L 100.0500, L501.9520, L500.2500 #### [facility] [address] [place], [address] Hemoglobin (Bld) [Mass/Vol] 9.1 g/dL Low 12.0-15.0 [facility] Comment on above: Order Comment: 508.1 Performed By: #### L 100.0500, L501.9520, L500.2500 #### [facility] [address] [place], [address] MCH (RBC) [Entitic mass] 27.3 pg Normal 27.0-32.0 [facility] Comment on above: Order Comment: 508.1 Performed By: #### L 100.0500, L501.9520, L500.2500 #### [facility] [address] [place], [address] MCHC (RBC) [Mass/Vol] 31.1 g/dL Low 32-36 [facility] Comment on above: Order Comment: 508.1 Performed By: #### L 100.0500, L501.9520, L500.2500 #### [facility] [address] [place], [address] MCV (RBC) [Entitic vol] 88.0 fL Normal 81-99 [facility] Comment on above: Order Comment: 508.1 Performed By: #### L 100.0500, L501.9520, L500.2500 #### [facility] [address] [place], [address] Platelet mean volume (Bld) [Entitic vol] 10.5 fL Normal 6.2-12.0 [facility] Comment on above: Order Comment: 508.1 Performed By: #### L 100.0500, L501.9520, L500.2500 #### [facility] [address] [place], [address] Platelets (Bld) [#/Vol] 509 10*3/uL High 150-450 [facility] Comment on above: Order Comment: 508.1 Performed By: #### L 100.0500, L501.9520, L500.2500 #### [facility] [address] [place], [address] RBC (Bld) [#/Vol] 3.33 10*6/uL Low 4.2-5.4 [facility] Comment on above: Order Comment: 508.1 Performed By: #### L 100.0500, L501.9520, L500.2500 #### [facility] [address] [place], [address] RDW SD 52.6 fl High 35.1-43.9 [facility] Comment on above: Order Comment: 508.1 Performed By: #### L 100.0500, L501.9520, L500.2500 #### [facility] [address] [place], [address] WBC (Bld) [#/Vol] 9.6 10*3/uL Normal 4.4-11.0 [facility] Comment on above: Order Comment: 508.1 Performed By: #### L 100.0500, L501.9520, L500.2500 #### [facility] [address] [place], [address] Carbon dioxide measurementOr dered By: Leena Corado on 01-17-2025 CO2 [Moles/Vol] 21.0 mmol/L 21.0-32.0 [facility] Chloride measurementOrdered By: Leena Corado on 01-17-2025 Chloride [Moles/Vol] 104 mmol/L 98-107 [facility] Erythrocyte distribution wid th ratioOrdered By: Leena Corado on 01-17-2025 Erythrocyte distribution width (RBC) [Ratio] 16.9 % High 11.6-14.6 [facility] Erythrocyte distribution wid th standard deviationOrdered By: Leena Corado on 01-17-2025 Erythrocyte distribution width (RBC) [Entitic vol] 52.6 fL High 35.1-43.9 [facility] Erythrocyte distribution width (RBC) [Ratio] 52.6 fl High 35.1-43.9 [facility] Estimated glomerular filtrat ion rate (GFR) AmericanOrdered By: Lenea Corado on 01-17-2025 Estimated GFR (MDRD) Amer 72 mL/min >60 [facility] Comment on above: GFR Calc Ferritinon 01-17-2025 Ferritin [Mass/Vol] 88 ng/mL Normal 8-252 [facility] Comment on above: Order Comment: 104.1 Performed By: #### L 100.0500, L501.5200, L500.2500 #### [facility] [address] [place], [address] Ferritin measurementOrdered By: Leena Corado on 01-17-2025 Ferritin [Mass/Vol] 88 ng/mL 8-252 [facility] Glomerular filtration rate ( GFR) estimationOrdered By: Leena Corado on 01-17-2025 Estimated GFR (MDRD) Non-Af Amer 59 mL/min Low >60 [facility] Comment on above: Non- GFR Calc GFR/1.73 sq M.predicted among non-blacks MDRD (S/P/Bld) [Vol rate/Area] 59 mL/min/{1.73_m2} Low >60 [facility] Comment on above: Non- GFR Calc Glucose measurementOrdered B y: Leena Corado on 01-17-2025 Glucose [Mass/Vol] 92 mg/dL 74-106 [facility] Hematocrit Auto (Bld) [Volum e fraction]Ordered By: Leena Corado on 01-17-2025 Hematocrit (Bld) [Volume fraction] 29.3 % Low 37-47 [facility] Hemoglobin measurementOrdere d By: Leena Corado on 01-17-2025 Hemoglobin (Bld) [Mass/Vol] 9.1 g/dL Low 12.0-15.0 [facility] Ironon 01-17-2025 Iron [Mass/Vol] 42 ug/dL Low 50-170 [facility] Comment on above: Order Comment: 508.1 Performed By: #### L 100.0500, L501.9520, L500.2500 #### [facility] [address] [place], [place], [address] Iron (Unsp spec) [Mass/Mass] Ordered By: Leena Corado on 01-17-2025 Iron [Mass/Vol] 42 ug/dL Low 50-170 [facility] Iron measurement (mass/mass) Ordered By: Leena Corado on 01-17-2025 Iron (Unsp spec) [Mass/Mass] 42 ug/dL Low 50-170 [facility] MCV (mean corpuscular volume ) determinationOrdered By: Leena Corado on 01-17-2025 MCV (RBC) [Entitic vol] 88.0 fL 81-99 [facility] Magnesiumon 01-17-2025 Magnesium [Mass/Vol] 1.4 mg/dL Low 1.6-2.6 [facility] Comment on above: Order Comment: 508.1 Performed By: #### L 100.0500, L501.9520, L500.2500 #### [facility] [address] [place], [place], [id number] Magnesium measurementOrdered By: Leena Corado on 01-17-2025 Magnesium [Mass/Vol] 1.4 mg/dL Low 1.6-2.6 [facility] Mean corpuscular hemoglobin (MCH) determinationOrdered By: Leena Corado on 01-17-2025 MCH (RBC) [Entitic mass] 27.3 pg 27.0-32.0 [facility] Mean corpuscular hemoglobin concentration (MCHC) determinationOrdered By: Leena Corado on 01-17-2025 MCHC (RBC) [Mass/Vol] 31.1 g/dL Low 32-36 [facility] Mean platelet volume determi nationOrdered By: Leena Corado on 01-17-2025 Platelet mean volume (Bld) [Entitic vol] 10.5 fL 6.2-12.0 [facility] Platelet countOrdered By: Malik Corado on 01-17-2025 Platelets (Bld) [#/Vol] 509 10*3/uL High 150-450 [facility] Potassium measurementOrdered By: Leena Corado on 01-17-2025 Potassium [Moles/Vol] 4.6 mmol/L 3.5-5.1 [facility] RBC Auto (Bld) [#/Vol]Ordere d By: Leena Corado on 01-17-2025 RBC (Bld) [#/Vol] 3.33 10*6/uL Low 4.2-5.4 [facility] Serum anion gap measurementO rdered By: Leena Corado on 01-17-2025 Anion gap [Moles/Vol] 10 mmol/L 5-15 [facility] Serum or plasma calcium harish urement (mass/volume)Ordered By: Leena Corado on 01-17-2025 Calcium [Mass/Vol] 8.9 mg/dL 8.5-10.1 [facility] Serum or plasma creatinine m easurement (mass/volume)Ordered By: Leena Corado on 01-17-2025 Creatinine [Mass/Vol] 0.95 mg/dL 0.55-1.02 [facility] Comment on above: The validity of the calculated GFR & GFRAA in patients over 70 years has not been determined. Clinical correlation is essential. Serum or plasma urea nitroge n measurement (mass/volume)Ordered By: Leena Corado on 01-17-2025 Urea nitrogen [Mass/Vol] 32 mg/dL High 7-18 [facility] Sodium levelOrdered By: Nelson Corado on 01-17-2025 Sodium [Moles/Vol] 135 mmol/L Low 136-145 [facility] White blood cell (WBC) count Ordered By: Leena Corado on 01-17-2025 WBC (Bld) [#/Vol] 9.6 10*3/uL 4.4-11.0 [facility] 31-RL-Mfirftc DOrdered By: Toma Corado on 01-13-2025 Vitamin D 25-Hydroxy 115.6 ng/mL [facility] Comment on above: Vitamin D 25(OH) Sta tus Range Deficiency <20 ng/mL (50nmol/L) Insufficiency 20 - 30 ng/mL (50 - 75 nmol/L) Sufficiency 30 - 100 ng/mL (75 - 250 nmol/L) Toxicity >100 ng/mL (>250 nmol/L)Evidence suggests that patients undergoing fluorescein dye angiography can retain small amounts of fluorescein in the body for up to 48 to 72 hours post-treatment. In the cases of patients with renal insufficiency, retention could be much longer. Samples containing fluorescein can produce falsely elevated values when tested with the [employer] CSDNaur Vitamin D assay. With fluorescein interference, observed Vitamin D values can be as high as >150 ng/mL (>375 nmol/L). Samples should be resubmitted post fluorescein clearance to ensure there is no interference with Vitamin D test results. Absolute lymphocyte countOrd ered By: Leena Corado on 01-13-2025 Lymphocytes Auto (Unsp spec) [#/Vol] 1.60 10*3/uL 0.83-4.51 [facility] Absolute neutrophil countOrd ered By: Leena Corado on 01-13-2025 Neutrophils (Bld) [#/Vol] 6.5 10*3/uL 2.0-7.7 [facility] Automated lymphocyte count a s percentage of total leukocytesOrdered By: Leena Corado on 01-13-2025 Lymphocytes/100 WBC Auto (Unsp spec) 16.1 % Low 19-41 [facility] Basic Metabolic Profile (BMP )on 01-13-2025 BUN/CRE 19.5 RATIO Normal 10-20 [facility] Comment on above: Order Comment: 508.1 Performed By: #### L 100.0500, L501.9520, L500.2500 #### [facility] [address] [place], [address] CA,Total 9.2 mg/dL Normal 8.5-10.1 [facility] Comment on above: Order Comment: 508.1 Performed By: #### L 100.0500, L501.9520, L500.2500 #### [facility] [address] [place], [address] Chloride [Moles/Vol] 104 mmol/L Normal 98-107 [facility] Comment on above: Order Comment: 508.1 Performed By: #### L 100.0500, L501.9520, L500.2500 #### [facility] [address] [place], [address] CO2 [Moles/Vol] 19.0 mmol/L Low 21.0-32.0 [facility] Comment on above: Order Comment: 508.1 Performed By: #### L 100.0500, L501.9520, L500.2500 #### [facility] [address] [place], [address] Creatinine [Mass/Vol] 0.87 mg/dL Normal 0.55-1.02 [facility] Comment on above: Order Comment: 508.1 Result Comment: The validity of the calculated GFR GFRAA in patients over 70 years has not been determined. Clinical correlation is essential. Performed By: #### L 100.0500, L501.9520, L500.2500 #### [facility] [address] [place], [address] EST GFR - AA 80 mL/min Normal >60 [facility] Comment on above: Order Comment: 508.1 Result Comment: Afri can [place] GFR Calc Performed By: #### L 100.0500, L501.9520, L500.2500 #### [facility] [address] [place], [address] GAP 11 Normal 5-15 [facility] Comment on above: Order Comment: 508.1 Performed By: #### L 100.0500, L501.9520, L500.2500 #### [facility] [address] [place], [address] GFR/1.73 sq M.predicted among non-blacks MDRD (S/P/Bld) [Vol rate/Area] 66 mL/min/{1.73_m2} Normal >60 [facility] Comment on above: Order Comment: 508.1 Result Comment: Non- GFR Calc Performed By: #### L 100.0500, L501.9520, L500.2500 #### [facility] [address] [place], [address] Glucose [Mass/Vol] 87 mg/dL Normal 74-106 [facility] Comment on above: Order Comment: 508.1 Performed By: #### L 100.0500, L501.9520, L500.2500 #### [facility] [address] [place], [address] Potassium [Moles/Vol] 4.0 mmol/L Normal 3.5-5.1 [facility] Comment on above: Order Comment: 508.1 Performed By: #### L 100.0500, L501.9520, L500.2500 #### [facility] [address] [place], [address] Sodium [Moles/Vol] 134 mmol/L Low 136-145 [facility] Comment on above: Order Comment: 508.1 Performed By: #### L 100.0500, L501.9520, L500.2500 #### [facility] [address] [place], [address] Urea nitrogen [Mass/Vol] 17 mg/dL Normal 7-18 [facility] Comment on above: Order Comment: 508.1 Performed By: #### L 100.0500, L501.9520, L500.2500 #### [facility] [address] [place], [address] Basophil percentageOrdered B y: Leena Corado on 01-13-2025 Basophils/100 WBC (Bld) 0.6 % 0-1 [facility] Blood urea nitrogen (BUN)/cr eatinine ratioOrdered By: Leena Corado on 01-13-2025 Urea nitrogen/Creatinine [Mass ratio] 19.5 mg/mg 10-20 [facility] CBC W/Diff, Automatedon - 0 Absolute Lymph 1.60 X10 3/uL Normal 0.83-4.51 [facility] Comment on above: Order Comment: 508.1 Performed By: #### L 100.0500, L501.9520, L500.2500 #### [facility] [address] [place], [address] Absolute Neut 6.5 X10 3/uL Normal 2.0-7.7 [facility] Comment on above: Order Comment: 508.1 Performed By: #### L 100.0500, L501.9520, L500.2500 #### [facility] [address] [place], [address] Basophils/100 WBC (Bld) 0.6 % Normal 0-1 [facility] Comment on above: Order Comment: 508.1 Performed By: #### L 100.0500, L501.9520, L500.2500 #### [facility] [address] [place], [address] Eosinophils/100 WBC (Bld) 1.9 % Normal 0-5 [facility] Comment on above: Order Comment: 508.1 Performed By: #### L 100.0500, L501.9520, L500.2500 #### [facility] [address] [place], [address] Erythrocyte distribution width (RBC) [Ratio] 16.4 % High 11.6-14.6 [facility] Comment on above: Order Comment: 508.1 Performed By: #### L 100.0500, L501.9520, L500.2500 #### [facility] [address] [place], [address] Hematocrit (Bld) [Volume fraction] 31.5 % Low 37-47 [facility] Comment on above: Order Comment: 508.1 Performed By: #### L 100.0500, L501.9520, L500.2500 #### [facility] [address] [place], [address] Hemoglobin (Bld) [Mass/Vol] 9.7 g/dL Low 12.0-15.0 [facility] Comment on above: Order Comment: 508.1 Performed By: #### L 100.0500, L501.9520, L500.2500 #### [facility] [address] [place], [address] IG% 1.900 High 0.0-0.9 [facility] Comment on above: Order Comment: 508.1 Result Comment: IG% - Immature Granulocytes (promyelocytes, myelocytes and metamyelocytes) > 1% indicates that a LEFT SHIFT is Present. Performed By: #### L 100.0500, L501.9520, L500.2500 #### [facility] [address] [place], [address] Lymphocytes/100 WBC (Bld) 16.1 % Low 19-41 [facility] Comment on above: Order Comment: 508.1 Performed By: #### L 100.0500, L501.9520, L500.2500 #### [facility] [address] [place], [address] MCH (RBC) [Entitic mass] 26.6 pg Low 27.0-32.0 [facility] Comment on above: Order Comment: 508.1 Performed By: #### L 100.0500, L501.9520, L500.2500 #### [facility] [address] [place], [address] MCHC (RBC) [Mass/Vol] 30.8 g/dL Low 32-36 [facility] Comment on above: Order Comment: 508.1 Performed By: #### L 100.0500, L501.9520, L500.2500 #### [facility] [address] [place], [address] MCV (RBC) [Entitic vol] 86.3 fL Normal 81-99 [facility] Comment on above: Order Comment: 508.1 Performed By: #### L 100.0500, L501.9520, L500.2500 #### [facility] [address] [place], [address] Monocytes/100 WBC (Bld) 13.7 % High 0-10 [facility] Comment on above: Order Comment: 508.1 Performed By: #### L 100.0500, L501.9520, L500.2500 #### [facility] [address] [place], [address] Neutrophils/100 WBC (Bld) 65.8 % Normal 47-70 [facility] Comment on above: Order Comment: 508.1 Performed By: #### L 100.0500, L501.9520, L500.2500 #### [facility] [address] [place], [address] Nucleated RBC (Bld) [#/Vol] 0 10*3/uL Normal 0-5 [facility] Comment on above: Order Comment: 508.1 Performed By: #### L 100.0500, L501.9520, L500.2500 #### [facility] [address] [place], [address] Platelet mean volume (Bld) [Entitic vol] 10.4 fL Normal 6.2-12.0 [facility] Comment on above: Order Comment: 508.1 Performed By: #### L 100.0500, L501.9520, L500.2500 #### [facility] [address] [place], [address] Platelets (Bld) [#/Vol] 431 10*3/uL Normal 150-450 [facility] Comment on above: Order Comment: 508.1 Performed By: #### L 100.0500, L501.9520, L500.2500 #### [facility] [address] [place], [address] RBC (Bld) [#/Vol] 3.65 10*6/uL Low 4.2-5.4 [facility] Comment on above: Order Comment: 508.1 Performed By: #### L 100.0500, L501.9520, L500.2500 #### [facility] [address] [place], [address] RDW SD 50.6 fl High 35.1-43.9 [facility] Comment on above: Order Comment: 508.1 Performed By: #### L 100.0500, L501.9520, L500.2500 #### [facility] [address] [place], [address] WBC (Bld) [#/Vol] 9.9 10*3/uL Normal 4.4-11.0 [facility] Comment on above: Order Comment: 508.1 Performed By: #### L 100.0500, L501.9520, L500.2500 #### [facility] [address], [address] Carbon dioxide measurementOr dered By: Leena Corado on 01-13-2025 CO2 [Moles/Vol] 19.0 mmol/L Low 21.0-32.0 [facility] Chloride measurementOrdered By: Leena Corado on 01-13-2025 Chloride [Moles/Vol] 104 mmol/L 98-107 [facility] Eosinophil percentageOrdered By: Leena Corado on 01-13-2025 Eosinophils/100 WBC (Bld) 1.9 % 0-5 [facility] Erythrocyte distribution wid th ratioOrdered By: Leena Corado on 01-13-2025 Erythrocyte distribution width (RBC) [Ratio] 16.4 % High 11.6-14.6 [facility] Erythrocyte distribution wid th standard deviationOrdered By: Leena Corado on 01-13-2025 Erythrocyte distribution width (RBC) [Entitic vol] 50.6 fL High 35.1-43.9 [facility] Erythrocyte distribution width (RBC) [Ratio] 50.6 fl High 35.1-43.9 [facility] Estimated glomerular filtrat ion rate (GFR) AmericanOrdered By: Leena Corado on 01-13-2025 Estimated GFR (MDRD) Amer 80 mL/min >60 [facility] Comment on above: GFR Calc Glomerular filtration rate ( GFR) estimationOrdered By: Leena Corado on 01-13-2025 Estimated GFR (MDRD) Non-Af Amer 66 mL/min >60 [facility] Comment on above: Non- GFR Calc GFR/1.73 sq M.predicted among non-blacks MDRD (S/P/Bld) [Vol rate/Area] 66 mL/min/{1.73_m2} >60 [facility] Comment on above: Non- GFR Calc Glucose measurementOrdered B y: Leena Corado on 01-13-2025 Glucose [Mass/Vol] 87 mg/dL 74-106 [facility] Hematocrit Auto (Bld) [Volum e fraction]Ordered By: Leena Corado on 01-13-2025 Hematocrit (Bld) [Volume fraction] 31.5 % Low 37-47 [facility] Hemoglobin measurementOrdere d By: Leena Corado on 01-13-2025 Hemoglobin (Bld) [Mass/Vol] 9.7 g/dL Low 12.0-15.0 [facility] High density lipoprotein (HD L) measurementOrdered By: Leena Corado on 01-13-2025 Cholesterol in HDL [Mass/Vol] 36 mg/dL Low >40 [facility] Comment on above: The drugs N-Acetylcy steine and Metamizole may falsely depress this assay. Reference Range HDL <40 mg/dL Low HDL Cholesterol HDL >or= 60 mg/dL High HDL Cholesterol Immature granulocytes/100 WB C Auto (Bld)Ordered By: Leena Corado on 01-13-2025 Immature granulocytes/100 WBC (Bld) 1.900 % High 0.0-0.9 [facility] Comment on above: IG% - Immature Granu locytes (promyelocytes, myelocytes and metamyelocytes) > 1% indicates that a LEFT SHIFT is Present. Lipid Profileon 01-13-2025 Cholesterol [Mass/Vol] 91 mg/dL Normal 200 [facility] Comment on above: Order Comment: 508.1 Result Comment: <200 mg/dL Desirable 200-240 mg/dL Borderline >240 mg/dL High Risk Performed By: #### L 100.0500, L501.9520, L500.2500 #### [facility] [address] [place], [address] Cholesterol in HDL [Mass/Vol] 36 mg/dL Low [facility] Comment on above: Order Comment: 508.1 Result Comment: The drugs N-Acetylcysteine and Metamizole may falsely depress this assay. Reference Range HDL <40 mg/dL Low HDL Cholesterol HDL >or= 60 mg/dL High HDL Cholesterol Performed By: #### L 100.0500, L501.9520, L500.2500 #### [facility] [address] [place], [address] Cholesterol in LDL [Mass/Vol] 32 mg/dL Normal 0-130 [facility] Comment on above: Order Comment: 508.1 Performed By: #### L 100.0500, L501.9520, L500.2500 #### [facility] [address] [place], [address] Cholesterol in VLDL [Mass/Vol] 23 mg/dL Normal 5-40 [facility] Comment on above: Order Comment: 508.1 Performed By: #### L 100.0500, L501.9520, L500.2500 #### [facility] [address] [place], [address] Triglyceride [Mass/Vol] 113 mg/dL Normal [facility] Comment on above: Order Comment: 508.1 Result Comment: The drugs N-Acetylcysteine and Metamizole may falsely depress this assay. Serum Triglycerides Reference Interval Normal <150 mg/dL Borderline high 150 - 199 mg/dL High 200 - 499 mg/dL Very High > or = 500 mg/dL Performed By: #### L 100.0500, L501.9520, L500.2500 #### [facility] [address] [place], [address] Low density lipoprotein (LDL ) cholesterol measurementOrdered By: Leena Corado on 01-13-2025 Cholesterol in LDL [Mass/Vol] 32 mg/dL 0-130 [facility] Lymphocytes Auto (Unsp spec) [#/Vol]Ordered By: Leena Corado on 01-13-2025 Lymphocytes (Bld) [#/Vol] 1.60 10*3/uL 0.83-4.51 [facility] Lymphocytes/100 WBC Auto (Un sp spec)Ordered By: Leena Corado on 01-13-2025 Lymphocytes/100 WBC (Bld) 16.1 % Low 19-41 [facility] MCV (mean corpuscular volume ) determinationOrdered By: Leena Corado on 01-13-2025 MCV (RBC) [Entitic vol] 86.3 fL 81-99 [facility] Magnesiumon 01-13-2025 Magnesium [Mass/Vol] 1.6 mg/dL Normal 1.6-2.6 [facility] Comment on above: Order Comment: 508.1 Performed By: #### L 100.0500, L501.9520, L500.2500 #### [facility] [address] [place] [address], [address] Magnesium measurementOrdered By: Leena Corado on 01-13-2025 Magnesium [Mass/Vol] 1.6 mg/dL 1.6-2.6 [facility] Mean corpuscular hemoglobin (MCH) determinationOrdered By: Leena Corado on 01-13-2025 MCH (RBC) [Entitic mass] 26.6 pg Low 27.0-32.0 [facility] Mean corpuscular hemoglobin concentration (MCHC) determinationOrdered By: Leena Corado on 01-13-2025 MCHC (RBC) [Mass/Vol] 30.8 g/dL Low 32-36 [facility] Mean platelet volume determi nationOrdered By: Leena Corado on 01-13-2025 Platelet mean volume (Bld) [Entitic vol] 10.4 fL 6.2-12.0 [facility] Monocyte percentageOrdered B y: Leena Corado on 01-13-2025 Monocytes/100 WBC (Bld) 13.7 % High 0-10 [facility] Neutrophil percentageOrdered By: Leena Corado on 01-13-2025 Neutrophils/100 WBC (Bld) 65.8 % 47-70 [facility] Nucleated red blood cell per centageOrdered By: Leena Corado on 01-13-2025 Nucleated RBC/100 WBC (Bld) [Ratio] 0 % 0-5 [facility] Platelet countOrdered By: Malik Corado on 01-13-2025 Platelets (Bld) [#/Vol] 431 10*3/uL 150-450 [facility] Potassium measurementOrdered By: Leena Corado on 01-13-2025 Potassium [Moles/Vol] 4.0 mmol/L 3.5-5.1 [facility] RBC Auto (Bld) [#/Vol]Ordere d By: Leena Corado on 01-13-2025 RBC (Bld) [#/Vol] 3.65 10*6/uL Low 4.2-5.4 [facility] Serum anion gap measurementO rdered By: Leena Corado on 01-13-2025 Anion gap [Moles/Vol] 11 mmol/L 5-15 [facility] Serum or plasma calcium harish urement (mass/volume)Ordered By: Leena Corado on 01-13-2025 Calcium [Mass/Vol] 9.2 mg/dL 8.5-10.1 [facility] Serum or plasma cholesterol measurement (mass/volume)Ordered By: Leena Corado on 01-13-2025 Cholesterol [Mass/Vol] 91 mg/dL <200 [facility] Comment on above: <200 mg/dL Desirable 200-240 mg/dL Borderline >240 mg/dL High Risk Serum or plasma creatinine m easurement (mass/volume)Ordered By: Leena Corado on 01-13-2025 Creatinine [Mass/Vol] 0.87 mg/dL 0.55-1.02 [facility] Comment on above: The validity of the calculated GFR & GFRAA in patients over 70 years has not been determined. Clinical correlation is essential. Serum or plasma thyroid stim ulating hormone (TSH) measurement (units/volume)Ordered By: Leena Corado on 01-13-2025 TSH Qn 3.180 uIU/mL 0.358-3.74 0 [facility] Serum or plasma urea nitroge n measurement (mass/volume)Ordered By: Leena Corado on 01-13-2025 Urea nitrogen [Mass/Vol] 17 mg/dL 7-18 [facility] Sodium levelOrdered By: Nelson Corado on 01-13-2025 Sodium [Moles/Vol] 134 mmol/L Low 136-145 [facility] TSH QnOrdered By: Leena jacobo on 01-13-2025 Thyroid Stimulating Hormone (TSH) 3.180 uIU/mL 0.358-3.74 0 [facility] Thyroid Stim Hormone (TSH)on 01-13-2025 TSH 3.180 uIU/mL Normal 0.358-3.74 0 [facility] Comment on above: Order Comment: 508.1 Performed By: #### L 100.0500, L501.9520, L500.2500 #### [facility] [address] [place], [place], [id number] Triglycerides measurementOrd ered By: Leena Corado on 01-13-2025 Triglyceride [Mass/Vol] 113 mg/dL <199 [facility] Comment on above: The drugs N-Acetylcy steine and Metamizole may falsely depress this assay.Serum Triglycerides Reference Interval Normal <150 mg/dL Borderline high 150 - 199 mg/dL High 200 - 499 mg/dL Very High > or = 500 mg/dL Very low density lipoprotein (VLDL) cholesterol measurementOrdered By: Leena Corado on 01-13-2025 Very low density lipoprotein (VLDL) cholesterol measurement 23 mg/dL 5-40 [facility] VLDL Cholesterol 23 mg/dL 5-40 [facility] Vitamin B12on 01-13-2025 Cobalamin (Vitamin B12) [Mass/Vol] pg/mL High 211-911 [facility] Comment on above: Order Comment: 508.1 Performed By: #### L 100.0500, L501.9520, L500.2500 #### [facility] Laboratory [address] [place], [place], [id number] Vitamin B12 measurementOrder ed By: Leena Corado on 01-13-2025 Vitamin B12 Level > 2000 pg/mL High 211-911 [facility] Vitamin D,25 Hydroxyon 01-13 Vitamin D 25-OH 115.6 ng/mL Normal [facility] Comment on above: Order Comment: 508.1 Result Comment: Teresa min D 25(OH) Status Range Deficiency <20 ng/mL (50nmol/L) Insufficiency 20 - 30 ng/mL (50 - 75 nmol/L) Sufficiency 30 - 100 ng/mL (75 - 250 nmol/L) Toxicity >100 ng/mL (>250 nmol/L) Evidence suggests that patients undergoing fluorescein dye angiography can retain small amounts of fluorescein in the body for up to 48 to 72 hours post-treatment. In the cases of patients with renal insufficiency, retention could be much longer. Samples containing fluorescein can produce falsely elevated values when tested with the [employer]ia Centaur Vitamin D assay. With fluorescein interference, observed Vitamin D values can be as high as >150 ng/mL (>375 nmol/L). Samples should be resubmitted post fluorescein clearance to ensure there is no interference with Vitamin D test results. Performed By: #### L 100.0500, L501.9520, L500.2500 #### [facility] [address] [place], [place], [id number] White blood cell (WBC) count Ordered By: Leena Corado on 01-13-2025 WBC (Bld) [#/Vol] 9.9 10*3/uL 4.4-11.0 [facility] Lower GI hemoglobin IA Ql (S tl)Ordered By: Maynor Cox on 01-11-2025 Stool Occult Blood (JENNIFER) Positive Abnormal [facility] Magnesiumon 01-11-2025 Magnesium [Mass/Vol] 1.9 mg/dL Normal 1.6-2.6 [facility] Comment on above: Performed By: #### L 100.0500, L501.9520, L500.2500 #### [facility] [address] [place], [place], [id number] Magnesium measurementOrdered By: Maynor Cox on 01-11-2025 Magnesium [Mass/Vol] 1.9 mg/dL 1.6-2.6 [facility] Phosphoruson 01-11-2025 Phosphate [Mass/Vol] 3.6 mg/dL Normal 2.5-4.9 [facility] Comment on above: Performed By: #### L 100.0500, L501.9520, L500.2500 #### [facility] [address] [place], [place], [id number] Phosphorus measurementOrdere d By: Maynor Cox on 01-11-2025 Phosphorus Level 3.6 mg/dL 2.5-4.9 [facility] Stool Occult Blood iFOBon STOB Positive Normal [facility] Comment on above: Performed By: #### M 100.7900 ####[facility] [address] [place], [place], [id number] Stool gastrointestinal hemog lobin detection by immunologic methodOrdered By: Maynor Cox on 01-11-2025 Lower GI hemoglobin IA Ql (Stl) Positive Abnormal [facility] Absolute lymphocyte countOrd ered By: Maynor Cox on 01-10-2025 Lymphocytes Auto (Unsp spec) [#/Vol] 1.54 10*3/uL 0.83-4.51 [facility] Absolute neutrophil countOrd ered By: Maynor Cox on 01-10-2025 Neutrophils (Bld) [#/Vol] 8.4 10*3/uL High 2.0-7.7 [facility] Albumin to globulin ratioOrd ered By: Maynor Cox on 01-10-2025 Albumin/Globulin [Mass ratio] 0.6 {ratio} Low 0.9-2.4 [facility] Automated lymphocyte count a s percentage of total leukocytesOrdered By: Maynor Cox on 01-10-2025 Lymphocytes/100 WBC Auto (Unsp spec) 13.2 % Low 19-41 [facility] Basophil percentageOrdered B y: Maynor Cox on 01-10-2025 Basophils/100 WBC (Bld) 0.2 % 0-1 [facility] Bilirubin, totalOrdered By: Maynor Cox on 01-10-2025 Bilirubin [Mass/Vol] 0.80 mg/dL 0.20-1.00 [facility] Comment on above: For patients on eltr ombopag therapy, use of Dimension [place] TBIL is not recommended. Blood urea nitrogen (BUN)/cr eatinine ratioOrdered By: Maynor Cox on 01-10-2025 Urea nitrogen/Creatinine [Mass ratio] 27.8 mg/mg High 10-20 [facility] CBC W/Diff, Automatedon 12-25 Absolute Lymph 1.54 X10 3/uL Normal 0.83-4.51 [facility] Comment on above: Performed By: #### L 100.0100, L500.4050, L501.5200, L501.2300 ####[facility] [address] [place], [address] Absolute Neut 8.4 X10 3/uL High 2.0-7.7 [facility] Comment on above: Performed By: #### L 100.0100, L500.4050, L501.5200, L501.2300 ####[facility] [address] [place], [address] Basophils/100 WBC (Bld) 0.2 % Normal 0-1 [facility] Comment on above: Performed By: #### L 100.0100, L500.4050, L501.5200, L501.2300 ####[facility] [address] [place], [address] Eosinophils/100 WBC (Bld) 0.9 % Normal 0-5 [facility] Comment on above: Performed By: #### L 100.0100, L500.4050, L501.5200, L501.2300 ####[facility] [address] [place], [address] Erythrocyte distribution width (RBC) [Ratio] 16.0 % High 11.6-14.6 [facility] Comment on above: Performed By: #### L 100.0100, L500.4050, L501.5200, L501.2300 ####[facility] [address] [place], [address] Hematocrit (Bld) [Volume fraction] 27.1 % Low 37-47 [facility] Comment on above: Performed By: #### L 100.0100, L500.4050, L501.5200, L501.2300 ####[facility] [address] [place], [address] Hemoglobin (Bld) [Mass/Vol] 8.6 g/dL Low 12.0-15.0 [facility] Comment on above: Performed By: #### L 100.0100, L500.4050, L501.5200, L501.2300 ####[facility] [address] [place], [address] IG% 0.800 Normal 0.0-0.9 [facility] Comment on above: Result Comment: IG% - Immature Granulocytes (promyelocytes, myelocytes and metamyelocytes) > 1% indicates that a LEFT SHIFT is Present. Performed By: #### L 100.0100, L500.4050, L501.5200, L501.2300 ####[facility] [address] [place], [address] Lymphocytes/100 WBC (Bld) 13.2 % Low 19-41 [facility] Comment on above: Performed By: #### L 100.0100, L500.4050, L501.5200, L501.2300 ####[facility] [address] [place], [address] MCH (RBC) [Entitic mass] 27.0 pg Normal 27.0-32.0 [facility] Comment on above: Performed By: #### L 100.0100, L500.4050, L501.5200, L501.2300 ####[facility] [address] [place], [address] MCHC (RBC) [Mass/Vol] 31.7 g/dL Low 32-36 [facility] Comment on above: Performed By: #### L 100.0100, L500.4050, L501.5200, L501.2300 ####[facility] [address] [place], [address] MCV (RBC) [Entitic vol] 85.0 fL Normal 81-99 [facility] Comment on above: Performed By: #### L 100.0100, L500.4050, L501.5200, L501.2300 ####[facility] [address] [place], [address] Monocytes/100 WBC (Bld) 12.8 % High 0-10 [facility] Comment on above: Performed By: #### L 100.0100, L500.4050, L501.5200, L501.2300 ####[facility] [address] [place], [address] Neutrophils/100 WBC (Bld) 72.1 % High 47-70 [facility] Comment on above: Performed By: #### L 100.0100, L500.4050, L501.5200, L501.2300 ####[facility] [address] [place], [address] Nucleated RBC (Bld) [#/Vol] 0 10*3/uL Normal 0-5 [facility] Comment on above: Performed By: #### L 100.0100, L500.4050, L501.5200, L501.2300 ####[facility] [address] [place], [address] Platelet mean volume (Bld) [Entitic vol] 10.8 fL Normal 6.2-12.0 [facility] Comment on above: Performed By: #### L 100.0100, L500.4050, L501.5200, L501.2300 ####[facility] [address] [place], [address] Platelets (Bld) [#/Vol] 337 10*3/uL Normal 150-450 [facility] Comment on above: Performed By: #### L 100.0100, L500.4050, L501.5200, L501.2300 ####[facility] [address] [place], [address] RBC (Bld) [#/Vol] 3.19 10*6/uL Low 4.2-5.4 [facility] Comment on above: Performed By: #### L 100.0100, L500.4050, L501.5200, L501.2300 ####[facility] [address] [place], [address] RDW SD 49.5 fl High 35.1-43.9 [facility] Comment on above: Performed By: #### L 100.0100, L500.4050, L501.5200, L501.2300 ####[facility] [address] [place], [address] WBC (Bld) [#/Vol] 11.7 10*3/uL High 4.4-11.0 [facility] Comment on above: Performed By: #### L 100.0100, L500.4050, L501.5200, L501.2300 ####[facility] [address] [place], [address] Carbon dioxide measurementOr dered By: Maynor Cox on 01-10-2025 CO2 [Moles/Vol] 18.0 mmol/L Low 21.0-32.0 [facility] Chloride measurementOrdered By: Maynor Cox on 01-10-2025 Chloride [Moles/Vol] 106 mmol/L 98-107 [facility] Comprehensive Metabolic Prof ilon 01-10-2025 Albumin [Mass/Vol] 2.2 g/dL Low 3.2-5.0 [facility] Comment on above: Performed By: #### L 100.0100, L500.4050, L501.5200, L501.2300 ####[facility] [address] [place], [address] Albumin/Globulin [Mass ratio] 0.6 {ratio} Low 0.9-2.4 [facility] Comment on above: Performed By: #### L 100.0100, L500.4050, L501.5200, L501.2300 ####[facility] [address] [place], [address] ALK P 99 U/L Normal 45-117 [facility] Comment on above: Performed By: #### L 100.0100, L500.4050, L501.5200, L501.2300 ####[facility] [address] [place], [address] ALT [Catalytic activity/Vol] 82 U/L High 13-56 [facility] Comment on above: Performed By: #### L 100.0100, L500.4050, L501.5200, L501.2300 ####[facility] [address] [place], [address] AST [Catalytic activity/Vol] 99 U/L High 15-37 [facility] Comment on above: Performed By: #### L 100.0100, L500.4050, L501.5200, L501.2300 ####[facility] [address] [place], [address] Bilirubin [Mass/Vol] 0.80 mg/dL Normal 0.20-1.00 [facility] Comment on above: Result Comment: For patients on eltrombopag therapy, use of Dimension [place] TBIL is not recommended. Performed By: #### L 100.0100, L500.4050, L501.5200, L501.2300 ####[facility] [address] [place], [address] BUN/CRE 27.8 RATIO High 10-20 [facility] Comment on above: Performed By: #### L 100.0100, L500.4050, L501.5200, L501.2300 ####[facility] [address] [place], [address] CA,Total 8.8 mg/dL Normal 8.5-10.1 [facility] Comment on above: Performed By: #### L 100.0100, L500.4050, L501.5200, L501.2300 ####[facility] [address] [place], [address] Chloride [Moles/Vol] 106 mmol/L Normal 98-107 [facility] Comment on above: Performed By: #### L 100.0100, L500.4050, L501.5200, L501.2300 ####[facility] [address] [place], [address] CO2 [Moles/Vol] 18.0 mmol/L Low 21.0-32.0 [facility] Comment on above: Performed By: #### L 100.0100, L500.4050, L501.5200, L501.2300 ####[facility] [address] [place], [address] Creatinine [Mass/Vol] 0.94 mg/dL Normal 0.55-1.02 [facility] Comment on above: Result Comment: The validity of the calculated GFR GFRAA in patients over 70 years has not been determined. Clinical correlation is essential. Performed By: #### L 100.0100, L500.4050, L501.5200, L501.2300 ####[facility] [address] [place], [address] ECRCL 31.43 ml/min Normal [facility] Comment on above: Performed By: #### L 100.0100, L500.4050, L501.5200, L501.2300 ####[facility] [address] [place], [address] EST GFR - AA 73 mL/min Normal >60 [facility] Comment on above: Result Comment: Afri can [place] GFR Calc Performed By: #### L 100.0100, L500.4050, L501.5200, L501.2300 ####[facility] [address] [place], [address] GAP 11 Normal 5-15 [facility] Comment on above: Performed By: #### L 100.0100, L500.4050, L501.5200, L501.2300 ####[facility] [address] [place], [address] GFR/1.73 sq M.predicted among non-blacks MDRD (S/P/Bld) [Vol rate/Area] 61 mL/min/{1.73_m2} Normal >60 [facility] Comment on above: Result Comment: Non- GFR Calc Performed By: #### L 100.0100, L500.4050, L501.5200, L501.2300 ####[facility] [address] [place], [address] Globulin (S) [Mass/Vol] 3.9 g/dL Normal 2.2-4.2 [facility] Comment on above: Performed By: #### L 100.0100, L500.4050, L501.5200, L501.2300 ####[facility] [address] [place], [address] Glucose [Mass/Vol] 83 mg/dL Normal 74-106 [facility] Comment on above: Performed By: #### L 100.0100, L500.4050, L501.5200, L501.2300 ####[facility] [address] [place], [address] Potassium [Moles/Vol] 4.4 mmol/L Normal 3.5-5.1 [facility] Comment on above: Performed By: #### L 100.0100, L500.4050, L501.5200, L501.2300 ####[facility] [address] [place], [address] Sodium [Moles/Vol] 135 mmol/L Low 136-145 [facility] Comment on above: Performed By: #### L 100.0100, L500.4050, L501.5200, L501.2300 ####[facility] [address] [place], [address] T PROT 6.1 g/dL Low 6.4-8.2 [facility] Comment on above: Performed By: #### L 100.0100, L500.4050, L501.5200, L501.2300 ####[facility] [address] [place], [address] Urea nitrogen [Mass/Vol] 26 mg/dL High 7-18 [facility] Comment on above: Performed By: #### L 100.0100, L500.4050, L501.5200, L501.2300 ####[facility] [address] [place], [address] Eosinophil percentageOrdered By: Maynor Cox on 01-10-2025 Eosinophils/100 WBC (Bld) 0.9 % 0-5 [facility] Erythrocyte distribution wid th ratioOrdered By: Maynor Cox on 01-10-2025 Erythrocyte distribution width (RBC) [Ratio] 16.0 % High 11.6-14.6 [facility] Erythrocyte distribution wid th standard deviationOrdered By: Maynor Cox on 01-10-2025 Erythrocyte distribution width (RBC) [Entitic vol] 49.5 fL High 35.1-43.9 [facility] Erythrocyte distribution width (RBC) [Ratio] 49.5 fl High 35.1-43.9 [facility] Estimated glomerular filtrat ion rate (GFR) AmericanOrdered By: Maynor Cox on 01-10-2025 Estimated GFR (MDRD) Amer 73 mL/min >60 [facility] Comment on above: GFR Calc Estimation of creatinine aneesh aranceOrdered By: Maynor Cox on 01-10-2025 Estimated Creatinine Clearance Calc 31.43 ml/min [facility] Glomerular filtration rate ( GFR) estimationOrdered By: Maynor Cox on 01-10-2025 Estimated GFR (MDRD) Non-Af Amer 61 mL/min >60 [facility] Comment on above: Non- GFR Calc GFR/1.73 sq M.predicted among non-blacks MDRD (S/P/Bld) [Vol rate/Area] 61 mL/min/{1.73_m2} >60 [facility] Comment on above: Non- GFR Calc Glucose measurementOrdered B y: Maynor Cox on 01-10-2025 Glucose [Mass/Vol] 83 mg/dL 74-106 [facility] Hematocrit Auto (Bld) [Volum e fraction]Ordered By: Maynor Cox on 01-10-2025 Hematocrit (Bld) [Volume fraction] 27.1 % Low 37-47 [facility] Hemoglobin measurementOrdere d By: Maynor Cox on 01-10-2025 Hemoglobin (Bld) [Mass/Vol] 8.6 g/dL Low 12.0-15.0 [facility] Immature granulocytes/100 WB C Auto (Bld)Ordered By: Maynor Cox on 01-10-2025 Immature granulocytes/100 WBC (Bld) 0.800 % 0.0-0.9 [facility] Comment on above: IG% - Immature Granu locytes (promyelocytes, myelocytes and metamyelocytes) > 1% indicates that a LEFT SHIFT is Present. Laboratory - Chemistry and C hemistry - challengeOrdered By: Maynor Cox on 01-10-2025 AST [Catalytic activity/Vol] 99 U/L High 15-37 [facility] Lymphocytes Auto (Unsp spec) [#/Vol]Ordered By: Maynor Cox on 01-10-2025 Lymphocytes (Bld) [#/Vol] 1.54 10*3/uL 0.83-4.51 [facility] Lymphocytes/100 WBC Auto (Un sp spec)Ordered By: Maynor Cox on 01-10-2025 Lymphocytes/100 WBC (Bld) 13.2 % Low 19-41 [facility] MCV (mean corpuscular volume ) determinationOrdered By: Maynor Cox on 01-10-2025 MCV (RBC) [Entitic vol] 85.0 fL 81-99 [facility] Magnesiumon 01-10-2025 Magnesium [Mass/Vol] 1.4 mg/dL Low 1.6-2.6 [facility] Comment on above: Performed By: #### L 100.0100, L500.4050, L501.5200, L501.2300 ####[facility] [address] [place], [address] Mean corpuscular hemoglobin (MCH) determinationOrdered By: Maynor Cox on 01-10-2025 MCH (RBC) [Entitic mass] 27.0 pg 27.0-32.0 [facility] Mean corpuscular hemoglobin concentration (MCHC) determinationOrdered By: Maynor Cox on 01-10-2025 MCHC (RBC) [Mass/Vol] 31.7 g/dL Low 32-36 [facility] Mean platelet volume determi nationOrdered By: Maynor Cox on 01-10-2025 Platelet mean volume (Bld) [Entitic vol] 10.8 fL 6.2-12.0 [facility] Monocyte percentageOrdered B y: Maynor Cox on 01-10-2025 Monocytes/100 WBC (Bld) 12.8 % High 0-10 [facility] Neutrophil percentageOrdered By: Maynor Cox on 01-10-2025 Neutrophils/100 WBC (Bld) 72.1 % High 47-70 [facility] Nucleated red blood cell per centageOrdered By: Maynor Cox on 01-10-2025 Nucleated RBC/100 WBC (Bld) [Ratio] 0 % 0-5 [facility] Phosphoruson 01-10-2025 Phosphate [Mass/Vol] 1.8 mg/dL Low 2.5-4.9 [facility] Comment on above: Performed By: #### L 100.0100, L500.4050, L501.5200, L501.2300 ####[facility] [address] [place], [address] Platelet countOrdered By: David oCx on 01-10-2025 Platelets (Bld) [#/Vol] 337 10*3/uL 150-450 [facility] Potassium measurementOrdered By: Maynor Cox on 01-10-2025 Potassium [Moles/Vol] 4.4 mmol/L 3.5-5.1 [facility] RBC Auto (Bld) [#/Vol]Ordere d By: Maynor Cox on 01-10-2025 RBC (Bld) [#/Vol] 3.19 10*6/uL Low 4.2-5.4 [facility] Serum anion gap measurementO rdered By: Maynor Cox on 01-10-2025 Anion gap [Moles/Vol] 11 mmol/L 5-15 [facility] Serum globulin measurementOr dered By: Maynor Cox on 01-10-2025 Globulin (S) [Mass/Vol] 3.9 g/dL 2.2-4.2 [facility] Serum or plasma alanine german otransferase (ALT) measurementOrdered By: Maynor Cox on 01-10-2025 ALT [Catalytic activity/Vol] 82 U/L High 13-56 [facility] Serum or plasma albumin harish urement (mass/volume)Ordered By: Maynor Cox on 01-10-2025 Albumin [Mass/Vol] 2.2 g/dL Low 3.2-5.0 [facility] Serum or plasma alkaline didier sphatase measurementOrdered By: Maynor Cox on 01-10-2025 ALP [Catalytic activity/Vol] 99 U/L 45-117 [facility] Serum or plasma calcium harish urement (mass/volume)Ordered By: Maynor Cox on 01-10-2025 Calcium [Mass/Vol] 8.8 mg/dL 8.5-10.1 [facility] Serum or plasma creatinine m easurement (mass/volume)Ordered By: Maynor Cox on 01-10-2025 Creatinine [Mass/Vol] 0.94 mg/dL 0.55-1.02 [facility] Comment on above: The validity of the calculated GFR & GFRAA in patients over 70 years has not been determined. Clinical correlation is essential. Serum or plasma urea nitroge n measurement (mass/volume)Ordered By: Maynor Cox on 01-10-2025 Urea nitrogen [Mass/Vol] 26 mg/dL High 7-18 [facility] Sodium levelOrdered By: Nicolas Cox on 01-10-2025 Sodium [Moles/Vol] 135 mmol/L Low 136-145 [facility] Total proteinOrdered By: Rhett Cox on 01-10-2025 Protein [Mass/Vol] 6.1 g/dL Low 6.4-8.2 [facility] Vitamin B12on 01-10-2025 Cobalamin (Vitamin B12) [Mass/Vol] pg/mL High 211-911 [facility] Comment on above: Performed By: #### L 100.0500, L501.9520, L500.2500 #### [facility] [address] [place], [address] White blood cell (WBC) count Ordered By: Maynor Cox on 01-10-2025 WBC (Bld) [#/Vol] 11.7 10*3/uL High 4.4-11.0 [facility] 12 Lead EKGon 01-09-2025 12 Lead EKG [facility] [address] [place] [address] 12 Lead EKG 01/09/25 0127 MR#: [id number] Acct: [id number] Name: FARZANA HERRON Rep #: [id number] : 1940 84 From: Macy Powell MD Attending Dr: Dr. Tan Triplett MD Status: DIS PETERSON Ordering Dr: Jaxson Scott DO Date: 01/09/25 Location: [facility] Sex: F C Admitted: 01/09/25 Test Reason : FALL Blood Pressure : */* mmHG Vent. Rate : 82 BPM Atrial Rate : 82 BPM P-R Int : 154 ms QRS Dur : 78 ms QT Int : 380 ms P-R-T Axes : * -18 55 degrees QTcB Int : 443 ms Sinus rhythm with Premature ventricular complexes or Fusion complexes Low voltage QRS Inferior infarct , age undetermined Cannot rule out Anterior infarct , age undetermined Abnormal ECG Confirmed by ZACH GARCIA, JOSSELIN ([id number]), story editor RODY ANDERSEN ([id number]) on 01/10/2025 8:24:10 AM Referred By: Confirmed By: JOSSELIN POWELL MD 01/10/25 0824 Date Macy Powell MD CC: Dr. Wayne Conde DO; Dr. Tan Triplett MD; Jaxson Scott DO Signed Normal [facility] Abdomen/Pelvis without Conto n 01-09-2025 Abdomen/Pelvis without Cont [facility] Imaging Services [address] [place] [id number] Abdomen/Pelvis without Cont MR#: [id number] Acct: [id number] Name: FARZANA HERRON Rep #: [id number] : 1940 F 84 From: Nelson Steele i, DO PCP: Dr. Wayne Conde DO Status: DIS PETERSON Study: Abdomen/Pelvis without Cont Date of Exam: 12/25 05/18 Exam# [id number] Ordering Dr: Maynor Costa DO PROCEDURE: Noncontrast CT of the abdomen/pelvis. REASON FOR EXAM: Recent fall. Elevated BUN and creatinine. TECHNIQUE: Contiguous unenhanced axial CT images were obtained through the abdomen/pelvis. Sagittal and coronal reformats were created. COMPARISON: None available FINDINGS: The bones are osteopenic with degenerative changes in the spine. Grade 1 anterolisthesis of L5 relative to S1 due to bilateral L5 pars defects. There is grade 1 retrolisthesis of L1 relative to L2. Mild age-indeterminate superior endplate compression deformity of L1. Evaluation of the solid organs and vascular structures is limited due to lack of intravenous contrast. Proximal femurs intact. Heart is not enlarged. No sizable pericardial effusion. Moderate coronary artery calcifications. Included lower breast tissue unremarkable. Trace bilateral pleural effusions. Mild dependent atelectasis lower lobes. Minimal 2.2 cm ectasia infrarenal abdominal aorta. The abdominal aorta is heavily calcified. An IVC filter is present. No large abdominal wall defect. There is a small hiatal hernia. Patchy wall thickening of the stomach may be due to lack of distention versus peristalsis. Surgical clips in the gallbladder fossa. The liver, adrenal glands, spleen, and pancreas show no specific abnormality. The kidneys are symmetric in size and vascular calcifications inferior left kidney. Attenuation. There is nonspecific mild bilateral perinephric fat stranding. No dominant solid-appearing renal mass. Probable there is minimal dilation of both ureters, which may be due to moderate distention of the urinary bladder. No radiopaque ureteral calculus. No discrete bladder lesion. The uterus is present. No dominant adnexal lesion. No abnormally dilated bowel segments or free intraperitoneal air. Scattered patchy wall thickening of the: May be due to lack of distention versus peristalsis or chronic diverticular disease. No acute diverticulitis. The appendix is not clearly demonstrated. No secondary findings of acute appendicitis. No abdominal/pelvic adenopathy or ascites. CT/Abdomen/Pelvis without Cont IMPRESSION: There is slight dilation of the ureters, which may be due to moderate nonspecific distention of the urinary bladder. The patient may benefit from a Villaseñor catheter balloon. No discrete bladder lesion is demonstrated. No obstructing ureteral calculus. No bowel obstruction or perforation. Colonic diverticulosis, without evidence of acute diverticulitis. Moderate coronary artery calcifications. Trace bilateral pleural effusions. 2.2 cm ectasia of the infrarenal heavily calcified abdominal aorta. Small hiatal hernia. One or more dose reduction techniques were used (e.g., Automated exposure control, adjustment of the mA and/or kV according to patient size, use of iterative reconstruction technique). Reading Location: [facility] CC: Dr. Maynor Cosat, DO; Dr. 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 Normal [facility] Basic Metabolic Profile (BMP )on 01-09-2025 BUN/CRE 33.8 RATIO High 10-20 [facility] Comment on above: Performed By: #### L 100.0500, L501.5200, L500.2500 #### [facility] [address] [place], [address] CA,Total 8.6 mg/dL Normal 8.5-10.1 [facility] Comment on above: Performed By: #### L 100.0500, L501.5200, L500.2500 #### [facility] Laboratory [address] [place], [address] Chloride [Moles/Vol] 102 mmol/L Normal 98-107 [facility] Comment on above: Performed By: #### L 100.0500, L501.5200, L500.2500 #### [facility] [address] [place], [address] CO2 [Moles/Vol] 19.0 mmol/L Low 21.0-32.0 [facility] Comment on above: Performed By: #### L 100.0500, L501.5200, L500.2500 #### [facility] [address] [place], [address] Creatinine [Mass/Vol] 1.48 mg/dL High 0.55-1.02 [facility] Comment on above: Result Comment: The validity of the calculated GFR GFRAA in patients over 70 years has not been determined. Clinical correlation is essential. Performed By: #### L 100.0500, L501.5200, L500.2500 #### [facility] [address] [place], [address] ECRCL 22.07 ml/min Normal [facility] Comment on above: Performed By: #### L 100.0500, L501.5200, L500.2500 #### [facility] [address] [place], [address] EST GFR - AA 43 mL/min Low >60 [facility] Comment on above: Result Comment: Afri can [place] GFR Calc Performed By: #### L 100.0500, L501.5200, L500.2500 #### [facility] [address] [place], [address] GAP 11 Normal 5-15 [facility] Comment on above: Performed By: #### L 100.0500, L501.5200, L500.2500 #### [facility] [address] [place], [address] GFR/1.73 sq M.predicted among non-blacks MDRD (S/P/Bld) [Vol rate/Area] 36 mL/min/{1.73_m2} Low >60 [facility] Comment on above: Result Comment: Non- GFR Calc Performed By: #### L 100.0500, L501.5200, L500.2500 #### [facility] [address] [place], [address] Glucose [Mass/Vol] 111 mg/dL High 74-106 [facility] Comment on above: Result Comment: Fast ing Glucose result from 100 to 125 mg/dL suggests IMPAIRED HOMEOSTASIS per A.D.A. criteria. Performed By: #### L 100.0500, L501.5200, L500.2500 #### [facility] [address] [place], [address] Potassium [Moles/Vol] 3.3 mmol/L Low 3.5-5.1 [facility] Comment on above: Performed By: #### L 100.0500, L501.5200, L500.2500 #### [facility] [address] [place], [address] Sodium [Moles/Vol] 131 mmol/L Low 136-145 [facility] Comment on above: Performed By: #### L 100.0500, L501.5200, L500.2500 #### [facility] [address] [place], [address] Urea nitrogen [Mass/Vol] 50 mg/dL High 7-18 [facility] Comment on above: Performed By: #### L 100.0500, L501.5200, L500.2500 #### [facility] [address] [place], [address] Bilirubin Test strip Ql (U)O rdered By: Jaxson Scott on 01-09-2025 Bilirubin Ql (U) Negative Negative [facility] Brain/Head without Contrasto n 01-09-2025 Brain/Head without Contrast [facility] Imaging Services [address] [place] [address] Brain/Head without Contrast MR#: [id number] Acct: [id number] Name: FARZANA HERRON Rep #: [id number] : 1940 F 84 From: Gage Schmidt MD PCP: Dr. Wayne Conde, Status: DIS PETERSON Study: Brain/Head without Contrast Date of Exam: 12/25 05/18 Exam# [id number] Ordering Dr: Jaxson Scott DO EXAM: BRAIN/HEAD WITHOUT CONTRAST CLINICAL HISTORY: Syncope COMPARISON: None. TECHNIQUE: Noncontrast images of the head with multiplanar reconstructions. Dose reduction techniques were used including intermediate exposure control (AEC),iterative reconstruction technique, and/or mA and/or KV dose adjustments based on patient's size. FINDINGS: CT HEAD FINDINGS: No acute intracranial hemorrhage, mass, mass effect, midline shift or pathologic extra-axial fluid collection. Nonspecific periventricular white matter changes are noted. The ventricles and cisterns are moderately prominent. Visualized paranasal sinuses and mastoid air cells are clear. The calvarium is grossly intact. CT/Brain/Head without Contrast IMPRESSION: 1. No CT evidence of acute intracranial pathology. 2. Age-appropriate volume loss and remote small vessel ischemic changes. Reading Location: [facility] CC: Dr. 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 Normal [facility] CBC W/Diff, Automatedon 12-25 Absolute Lymph 1.02 X10 3/uL Normal 0.83-4.51 [facility] Comment on above: Performed By: #### L 100.0100 ####[facility] [address] [place], [address] Absolute Neut 14.4 X10 3/uL High 2.0-7.7 [facility] Comment on above: Performed By: #### L 100.0100 ####[facility] [address] [place], [address] Basophils/100 WBC (Bld) 0.2 % Normal 0-1 [facility] Comment on above: Performed By: #### L 100.0100 ####[facility] [address] [place], [address] Eosinophils/100 WBC (Bld) 0.4 % Normal 0-5 [facility] Comment on above: Performed By: #### L 100.0100 ####[facility] [address] [place], [address] Erythrocyte distribution width (RBC) [Ratio] 15.9 % High 11.6-14.6 [facility] Comment on above: Performed By: #### L 100.0100 ####[facility] [address] [place], [address] Hematocrit (Bld) [Volume fraction] 26.5 % Low 37-47 [facility] Comment on above: Performed By: #### L 100.0100 ####[facility] [address] [place], [address] Hemoglobin (Bld) [Mass/Vol] 8.5 g/dL Low 12.0-15.0 [facility] Comment on above: Performed By: #### L 100.0100 ####[facility] [address] [place], [address] IG% 0.400 Normal 0.0-0.9 [facility] Comment on above: Result Comment: IG% - Immature Granulocytes (promyelocytes, myelocytes and metamyelocytes) > 1% indicates that a LEFT SHIFT is Present. Performed By: #### L 100.0100 ####[facility] [address] [place], [address] Lymphocytes/100 WBC (Bld) 6.0 % Low 19-41 [facility] Comment on above: Performed By: #### L 100.0100 ####[facility] [address] [place], [address] MCH (RBC) [Entitic mass] 27.7 pg Normal 27.0-32.0 [facility] Comment on above: Performed By: #### L 100.0100 ####[facility] [address] [place], [address] MCHC (RBC) [Mass/Vol] 32.1 g/dL Normal 32-36 [facility] Comment on above: Performed By: #### L 100.0100 ####[facility] [address] [place], [address] MCV (RBC) [Entitic vol] 86.3 fL Normal 81-99 [facility] Comment on above: Performed By: #### L 100.0100 ####[facility] [address] [place], [address] Monocytes/100 WBC (Bld) 8.7 % Normal 0-10 [facility] Comment on above: Performed By: #### L 100.0100 ####[facility] [address] [place], [address] Neutrophils/100 WBC (Bld) 84.3 % High 47-70 [facility] Comment on above: Performed By: #### L 100.0100 ####[facility] [address] [place], [address] Nucleated RBC (Bld) [#/Vol] 0 10*3/uL Normal 0-5 [facility] Comment on above: Performed By: #### L 100.0100 ####[facility] [address] [place], [address] Platelet mean volume (Bld) [Entitic vol] 11.2 fL Normal 6.2-12.0 [facility] Comment on above: Performed By: #### L 100.0100 ####[facility] [address] [place], [address] Platelets (Bld) [#/Vol] 279 10*3/uL Normal 150-450 [facility] Comment on above: Performed By: #### L 100.0100 ####[facility] [address] [place], [address] RBC (Bld) [#/Vol] 3.07 10*6/uL Low 4.2-5.4 [facility] Comment on above: Performed By: #### L 100.0100 ####[facility] [address] [place], [address] RDW SD 49.2 fl High 35.1-43.9 [facility] Comment on above: Performed By: #### L 100.0100 ####[facility] [address] [place], [address] WBC (Bld) [#/Vol] 17.1 10*3/uL High 4.4-11.0 [facility] Comment on above: Performed By: #### L 100.0100 ####[facility] [address] [place], [address] Chest 1 View (Portable)on Chest 1 View (Portable) [facility] Imaging Services [address] [place] [address] Chest 1 View (Portable) MR#: [id number] Acct: [id number] Name: FARZANA HERRON Rep #: [id number] : 1940 F 84 From: Gage Schmidt MD PCP: Dr. Wayne Conde DO Status: DIS PETERSON Study: Chest 1 View (Portable) Date of Exam: 01/09/25 Exam# [id number] Ordering Dr: Jaxson Scott DO PROCEDURE: CHEST 1 VIEW (PORTABLE) REASON FOR EXAM: Hypoxia TECHNIQUE: Frontal and lateral views of the chest. COMPARISON: None. FINDINGS: The heart size is normal. Calcifications in the aortic arch The mediastinal contour is unremarkable. The lungs are clear. The bones are unremarkable. RAD/Chest 1 View (Portable) IMPRESSION: No radiographic evidence of acute cardiopulmonary disease. Reading Location: [facility] CC: Dr. 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 Normal [facility] Emergency Department Summary on 01-09-2025 Emergency Department Summary [facility] Medical Records Department [address] [place] [address] Emergency Department Summary 01/09/25 MR#: [id number] Acct: [id number] Name: FARZANA HERRON Rep #: [id number] : 1940 84 From: Jaxson Scott DO PCP: Dr. Wayne Conde DO Status:DIS PETERSON Location: MT3 [id number] HPI History of Present Illness Chief Complaint: Fall Informant: patient and EMS Narrative Narrative: Patient is an 84-year-old female with past medical history of hypothyroidism hypertension hyperlipidemia and dementia. She was recently seen in the hospital on January 02 secondary to mechanical fall where she was found to have an impacted left humeral fracture. There was concern that she may need placed in fdc/rehab so she was kept overnight. However she apparently was able to ambulate and wanted discharged home and therefore was sent back to her home instead of a facility. Reportedly this evening the patient was found lying on the floor by her . The patient states she does not know how she arrived on the floor. She is unsure if she tripped and fell or had a syncopal event. She reports pain in her left arm which is the known fracture but otherwise denies any new areas of trauma. However because of the repeated fall versus syncope she was brought in for evaluation [facility] Home Medications ???Medication ???Instructions ???Recorded ???Last Taken ???Type aspirin 81 mg tablet,delayed 81 mg PO DAILY Heart health Unknown History release atorvastatin 10 mg tablet 80 mg PO QHS cholestrol 01/02/25 U nknown History calcium 500 mg (as 2 tab PO QHS supplement 01/02/25 U nknown History carbonate)-vitamin D3 5 mcg (200 unit) tablet (Oyster Shell Calcium-Vitamin D3) clopidogrel 75 mg tablet 75 mg PO DAILY Blood thinner 01/02 Unknown History donepezil 5 mg tablet 5 mg PO QHS BP 01/02/25 Unknown Hi story ergocalciferol (vitamin D2) 1,250 1,250 mcg PO FR supplement Unknown History mcg (50,000 unit) capsule gabapentin 300 mg capsule 300 mg PO BID 01/02/25 Unknown His tory isosorbide mononitrate 60 mg 60 mg PO DAILY Heart failure 01/02 Unknown History tablet,extended release 24 hr levothyroxine 50 mcg tablet 50 mcg PO DAILY 01/02/25 Unknown H istory losartan 25 mg tablet 25 mg PO DAILY BP 01/02/25 Unknown History metoprolol succinate 50 mg 50 mg PO BID 01/02/25 Unknown Hist ory tablet,extended release 24 hr mirtazapine 7.5 mg tablet 7.5 mg PO QHS 01/02/25 Unknown His tory omega 0-usn-seh-fish oil 300 3 cap PO DAILY 01/02/25 Unknown Hi story mg-1,000 mg capsule (Fish Oil) pantoprazole 40 mg tablet,delayed 40 mg PO QHS GERD 01/02/25 Unknow n History release sucralfate 1 gram tablet 1 g PO BIDAC 01/02/25 Unknown Hist ory acetaminophen 500 mg tablet 1,000 mg (2 x 500 mg) PO Q8 #0 tab s 01/04/25 Unknown Rx cyanocobalamin (vitamin B-12) 1,000 mcg PO DAILY 01/04/25 Unknow n History 1,000 mcg tablet guaifenesin 600 mg tablet, 600 mg PO BID 01/04/25 Unknown His tory extended release 12 hr Allergy/AdvReac Type Severity Reaction Status Date / Time codeine AdvReac Intermediate UNKNOWN Verified 01/09/25 01:00 Social History Smoking Status: Heavy Smoker (>10/day) ROS ROS ED ROS Narrative Please note review of systems may be unreliable secondary to history of dementia Constitutional Constitutional ED: Denies chills or fever(s) Eyes Eyes: Denies change in vision ENT ENT ED: Denies sore throat Cardiovascular Cardiovascular: Denies chest pain, palpitations or racing heartbeat Respiratory/Chest Respiratory/Chest: Denies cough or dyspnea Gastrointestinal Gastrointestinal: Denies abdominal pain, diarrhea, nausea or vomiting Genitourinary Genitourinary ED: Denies dysuria Musculoskeletal Musculoskeletal: Denies back pain or neck pain Integumentary Denies rash Neurologic Neurologic: Denies headache(s) Hematologic/Lymphatic Hematologic/Lymphatic: Denies easy bleeding or easy bruising EXAM Physical Exam Const Vital Signs: 01/09/25 00:57 01/09/25 04:53 Temperature 98.5 F Temperature Source Oral Pulse Rate 82 76 Respiratory Rate 16 16 Blood Pressure 115/57 L 118/47 L Blood Pressure Mean 76 70 Pulse Ox 94 90 Oxygen Delivery Method Nasal Cannula Nasal Cannula Oxygen Flow Rate (L/min) 2 4 Positive well nourished, well developed and obese General Appearance ED: well developed Nutritional Appearance: obese HEENT HEENT Narrative: Normocephalic atraumatic No signs of depressed or basilar skull fracture No tongue or cheek biting to suggest seizure activity Eyes PERRL and EOMs intact bilaterally General Eye ED: Negative for scleral icterus Nec (more content not included)... Normal [facility] Epithelial cells.squamous LM Ql (Urine sed)Ordered By: Jaxson Scott on 01-09-2025 Epithelial cells.squamous LM.HPF (Urine sed) [#/Area] 0 /[HPF] 5-10 [facility] Folates, (Folic Acid)on 12-25 FOLATES 5.70 ng/mL Normal 3.1-55.4 [facility] Comment on above: Order Comment: Has Josephine atient had X-rays with Contrast this admission? [place] Performed By: #### L 501.9520, L506.0250 ####[facility] [address] [place], [address] Folic acid measurementOrdere d By: Maynor Cox on 01-09-2025 Folate 5.70 ng/mL 3.1-55.4 [facility] Glucose Ql (U)Ordered By: Yoana Scott on 01-09-2025 Urine Glucose (UA) Normal mg/dl Normal [facility] H AND P Exam - Hospitaliston 01-09-2025 H&P Exam - Hospitalist [facility] Medical Records Department [address] [place] [address] H P Exam - Hospitalist 01/09/25 0507 MR#: [id number] Acct: [id number] Name: FARZANA HERRON Rep #: [id number] : 1940 84 From: Maynor Costa DO PCP: Dr. Wayne Conde, DO Status:DIS PETERSON [facility] - General General Date of Admission: 01/09/25 Date of Service: 01/09/25 Chief Complaint: Fall. HPI Narrative FARZANA HERRON, is a Right-handed 84 F with a past medical history of essential hypertension; on metoprolol and losartan, hyperlipidemia; on atorvastatin, overweight; with BMI of 25.6 this admission, history of tobacco abuse, CAD; on BASA and clopidogrel plus ISMO, chronic dementia; on donepezil, depression; on mirtazapine, neuropathy; on gabapentin BID, GERD; on pantoprazole and sucralfate, OA and recent admission here from January 03, 2025 to January 05, 2025 for treatment of nondisplaced, impacted Left humeral fracture after fall with patient initially admitted because she was not able to be cared for at home and with outpatient follow-up in 1-2 weeks for repeat X- rays recommended by orthopod - but her family decided to take her home rather than let her transition to subacute rehabilitation who now re-presents to [facility] ER complaining of another fall at home after her found her on the floor at home. Mrs. Herron is not a fully-reliable historian at this time so information was gathered from chart, medical staff and computer. According to the records she was found on the floor by her with patient unsure if she tripped or fell or had a syncopal event due to her dementia. She did report increasing pain in her Left arm but otherwise denies significant head trauma, LOC or other significant injury. Now because of her repeated fall she was brought in by her so that she could be transition to fdc facility. The patient denies fever, chills, visual changes, runny nose, sore throat, chest pain, shortness of breath, abdominal pain, nausea, vomiting, diarrhea, constipation, dysuria, back pain or headache. In the ER she was noted to have unremarkable brain CT, cervical spine CT, pelvic x-ray, and chest x-ray but she was noted to have laboratory evidence of Leukocytosis of 17.1 K present on admission suspected to be due to acute phase reaction with corresponding negative urinalysis complicated by Hypokalemia of 3.3 mmol/L present on admission and highly elevated BUN of 50 mg/dL with serum creatinine of 1.48 mg/dL (which is in patient's normal range) worrisome for possible PUD compounded by second fall in approximately 6 days with Generalized Weakness and Ambulatory Dysfunction and she was then admitted to the general medical floor under observation status for status expected to be less than 2 midnights. [facility] Medical History (Updated 01/09/25 @ 06:52 by Elidia Neumann) Fx humerus shaft-closed Osteoarthritis Depressed GERD (gastroesophageal reflux disease) Dementia HLD (hyperlipidemia) Coronary artery disease Hypertension Thyroid disease Home Medications ???Medication ???Instructions ???Recorded ???Last Taken ???Type aspirin 81 mg tablet,delayed 81 mg PO DAILY Heart health Unknown History release atorvastatin 10 mg tablet 80 mg PO QHS cholestrol 01/02/25 U nknown History calcium 500 mg (as 2 tab PO QHS supplement 01/02/25 U nknown History carbonate)-vitamin D3 5 mcg (200 unit) tablet (Oyster Shell Calcium-Vitamin D3) clopidogrel 75 mg tablet 75 mg PO DAILY Blood thinner 01/02 Unknown History donepezil 5 mg tablet 5 mg PO QHS BP 01/02/25 Unknown Hi story ergocalciferol (vitamin D2) 1,250 1,250 mcg PO FR supplement Unknown History mcg (50,000 unit) capsule gabapentin 300 mg capsule 300 mg PO BID 01/02/25 Unknown His tory isosorbide mononitrate 60 mg 60 mg PO DAILY Heart failure 01/02 Unknown History tablet,extended release 24 hr levothyroxine 50 mcg tablet 50 mcg PO DAILY 01/02/25 Unknown H istory losartan 25 mg tablet 25 mg PO DAILY BP 01/02/25 Unknown History metoprolol succinate 50 mg 50 mg PO BID 01/02/25 Unknown Hist ory tablet,extended release 24 hr mirtazapine 7.5 mg tablet 7.5 mg PO QHS 01/02/25 Unknown His tory omega 3-fhx-pze-fish oil 300 3 cap PO DAILY 01/02/25 Unknown Hi story mg-1,000 mg capsule (Fish Oil) pantoprazole 40 mg tablet,delayed 40 mg PO QHS GERD 01/02/25 Unknow n History release sucralfate 1 gram tablet 1 g PO BIDAC 01/02/25 Unknown Hist ory cyanocobalamin (vitamin B-12) 1,000 mcg PO DAILY 01/04/25 Unknow n History 1,000 mcg tablet guaifenesin 600 mg tablet, 600 mg PO BID 01/04/25 Unknown His tory extended release 12 hr Allergy/AdvReac Type Severity Reaction Status Date / Time code (more content not included)... Normal [facility] Influenza virus A and B and SARS-CoV-2 (COVID-19) and Respiratory syncytial virus RNAOrdered By: Jaxson Scott on 01-09-2025 SARS-CoV-2 (COVID-19) RNA SARY+probe Ql (Unsp spec) [facility] Ketones Test strip Ql (U)Ord ered By: Jaxson Scott on 01-09-2025 Ketones Ql (U) Negative Negative [facility] M100.678on 01-09-2025 M100.678 SARS-CoV-2 (COVID 19 ) Negative INFLUENZA A Negative INFLUENZA B Negative RSV PCR Negative Normal [facility] Comment on above: Performed By: #### L 100.0500, L501.9520, L500.2500 #### [facility] [address] [place], [address] Magnesiumon 01-09-2025 Magnesium [Mass/Vol] 1.7 mg/dL Normal 1.6-2.6 [facility] Comment on above: Performed By: #### L 100.0500, L501.5200, L500.2500 #### [facility] [address] [facility] [place], [address] Microscopic analysis of urin e for red blood cells (RBC)Ordered By: Jaxson Scott on 01-09-2025 Microscopic analysis of urine for red blood cells (RBC) 0 SEEN /hpf 0-5 [facility] Urine RBC 0 SEEN /hpf 0-5 [facility] Mucus LM Ql (Urine sed)Order ed By: Jaxson Scott on 01-09-2025 Mucus Ql (Urine sed) 0 SEEN /hpf [facility] Nitrite Test strip Ql (U)Ord ered By: Jaxson Scott on 01-09-2025 Nitrite Ql (U) Negative Negative [facility] Pelvis 1 or 2 Viewson 2024 Pelvis 1 or 2 Views [facility] Imaging Services [address] [place], [place] [address] Pelvis 1 or 2 Views MR#: [id number] Acct: [id number] Name: FARZANA HERRON Rep #: [id number] : 1940 F 84 From: Gage Schmidt MD PCP: Dr. Wayne Conde, Status: DIS PETERSON Study: Pelvis 1 or 2 Views Date of Exam: 01/09/25 Exam# [id number] Ordering Dr: Jaxson Scott DO PROCEDURE: PELVIS 1 OR 2 VIEWS REASON FOR EXAM: Fall TECHNIQUE: 1 view(s) of the pelvis. COMPARISON: None FINDINGS: No fracture. No suspicious bone lesion. Mild joint space narrowing bilaterally. Normal alignment at the hips and sacroiliac joints. Soft tissues are unremarkable. RAD/Pelvis 1 or 2 Views IMPRESSION: Degenerative changes with no acute osseous abnormality in the pelvis. Reading Location: [facility] CC: Dr. 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 Normal [facility] Protein Test strip Ql (U)Ord ered By: Jaxson Scott on 01-09-2025 Protein Ql (U) 30 mg/dl High Negative [facility] Serum or plasma thyroid stim ulating hormone (TSH) measurement (units/volume)Ordered By: Maynor Cox on 01-09-2025 TSH Qn 1.590 uIU/mL 0.358-3.74 0 [facility] Spine Cervical without Contr ason 01-09-2025 Spine Cervical without Contras [facility] Imaging Services [address] [place] [id number] Spine Cervical without Contras MR#: [id number] Acct: [id number] Name: FARZANA HERRON Rep #: [id number] : 1940 F 84 From: Gage Schmidt MD PCP: Dr. Wayne Conde DO Status: DIS PETERSON Study: Spine Cervical without Contras Date of Exam: 0 01/09/25 Exam# [id number] Ordering Dr: Jaxson Scott DO PROCEDURE: SPINE CERVICAL WITHOUT CONTRAS REASON FOR EXAM: Fall TECHNIQUE: Cervical spine CT without contrast. COMPARISON: None. FINDINGS: Alignment: Normal Vertebrae: No acute fracture Soft Tissues: No large prevertebral hematoma Mild degenerative changes in the disc spaces. CT/Spine Cervical without Contras IMPRESSION: Degenerative change with no acute osseous abnormality. One or more dose reduction techniques were used (e.g., Automated exposure control, adjustment of the mA and/or kV according to patient size, use of iterative reconstruction technique). Reading Location: [facility] CC: Dr. 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 N Performed By: #### L 501.9520, L506.0250 ####[facility] [address] [place], [address] Urinalysis, Completeon 01-09 RBC 0 SEEN Normal 0-5 [facility] Comment on above: Order Comment: FLORES CTOR TO SPECIFY Performed By: #### L 400.0001 ####[facility] [address] [place], [address] BACTERIA 0 SEEN Normal None Seen [facility] Comment on above: Order Comment: FLORES CTOR TO SPECIFY Performed By: #### L 400.0001 ####[facility] [address] [place], [address] EPI,SQUAMOUS 0 SEEN Normal -10 [facility] Comment on above: Order Comment: FLORES CTOR TO SPECIFY Performed By: #### L 400.0001 ####[facility] [address] [place], [address] Mucus Ql (Urine sed) 0 SEEN Normal [facility] Comment on above: Order Comment: FLORES CTOR TO SPECIFY Performed By: #### L 400.0001 ####[facility] [address] [place], [address] WBC 0 SEEN Normal 0-5 [facility] Comment on above: Order Comment: FLORES CTOR TO SPECIFY Performed By: #### L 400.0001 ####[facility] [address] [place], [address] Urine blood detectionOrdered By: Jaxson Scott on 01-09-2025 Urine Occult Blood 10 /ul High Negative [facility] Urine clarityOrdered By: Aleksey Scott on 01-09-2025 Clarity (U) Clear Clear [facility] Urine color determinationOrd ered By: Jaxson Scott on 01-09-2025 Color (U) Yellow Yellow [facility] Urine glucose detectionOrder ed By: Jaxson Scott on 01-09-2025 Glucose Ql (U) Normal mg/dl Normal [facility] Urine leukocyte esterase det ection by dipstickOrdered By: Jaxson Scott on 01-09-2025 Leukocyte esterase Test strip Ql (U) Negative Negative [facility] Urine pHOrdered By: Jaxson messina on 01-09-2025 pH (U) 5.0 [pH] 5.0 - 8.0 [facility] Urine sediment bacteria coun t by microscopy (number/high power field)Ordered By: Jaxson Scott on 01-09-2025 Bacteria LM.HPF (Urine sed) [#/Area] 0 /[HPF] None Seen [facility] Urine specific gravity measu rementOrdered By: Jaxson Scott on 01-09-2025 Specific gravity (U) [Rel density] 1.010 1.002-1.03 0 [facility] Urine urobilinogen measureme ntOrdered By: Jaxson Scott on 01-09-2025 Urobilinogen Ql (U) Normal mg/dl Normal [facility] Urobilinogen Ql (U)Ordered B y: Jaxson Scott on 01-09-2025 Urine Urobilinogen Normal mg/dl Normal [facility] Vitamin B12 measurementOrder ed By: Maynor Cox on 01-09-2025 Vitamin B12 Level > 2000 pg/mL High 211-911 [facility] White blood cell countOrdere d By: Jaxson Scott on 01-09-2025 Urine WBC 0 SEEN /hpf 0-5 [facility] White blood cell count 0 SEEN /hpf 0-5 [facility] 36on 01-05-2025 36 Faxed to given number Normal [facility] 36on 01-04-2025 36 Name of caller: Uzma weldon Contact phone number: [phone] Relationship to Patient: [facility] Home Nurse Provider: Kelsey Conde Practice: [facility] Chief Complaint/Reason for Call: The caller is needing a written order for the patient for a lift chair. The patient had a fall on Friday. Please fax to : [phone] Best time of day caller can be reached: any Patient advised that office/PCP has 24-48 business hours to return their call: Yes Normal [facility] Discharge Instructionon 12-25 Discharge Instruction [facility] Medical Records Department [address] [place] [address] Instructions for Home/Discharge Instructions 01/04/25 1534 MR#: [id number] Acct: [id number] Name: FARZANA HERRON Rep #: [id number] : 1940 84 From: Priyank Bauer DO PCP: Dr. Wayne Conde, DO Status:DIS PETERSON Discharge Instructions Diet Discharge Diet: No restrictions DC O2, CPAP, BIPAP needs Home O2 Discharge instructions: No Dressing / Incision Discharge Activity: - (Maintain left arm in a sling for comfort) Weight Bearing Status: Full weight bearing Follow Up Care Test Results: Test results from this visit will be discussed in further detail at your follow-up appointment, if applicable. Discharge Plan Admission Admit Date/Time: 01/02/25 20:48 Primary Reason for Your Visit: Left proximal humerus fracture Attending Provider: Priyank Bauer Primary Care Provider: Wayne Conde Consulting Providers: Aaliyah Lafleur Instructions Additional Instructions / Restrictions: You will need your left shoulder x-rayed again in 1 to 2 weeks, follow-up with your family physician Discharge Orders/Prescriptions Prescriptions: New acetaminophen 500 mg Tablet 1,000 mg PO Q8 Qty: 0 0RF Continued donepezil 5 mg tablet 5 mg PO QHS atorvastatin 10 mg tablet 80 mg PO QHS clopidogrel 75 mg tablet 75 mg PO DAILY aspirin 81 mg tablet,delayed release (DR/EC) 81 mg PO DAILY ergocalciferol (vitamin D2) 1,250 mcg (50,000 unit) capsule 1,250 mcg PO FR calcium carbonate-vitamin D3 [Oyster Shell Calcium-Vit D3] 500 mg-5 mcg (200 unit) tablet 2 tab PO QHS omega 7-vfp-rit-fish oil [Fish Oil] 300-1,000 mg capsule 3 cap PO DAILY metoprolol succinate 50 mg tablet extended release 24 hr 50 mg PO BID sucralfate 1 gram tablet 1 g PO BIDAC isosorbide mononitrate 60 mg tablet extended release 24 hr 60 mg PO DAILY levothyroxine 50 mcg tablet 50 mcg PO DAILY pantoprazole 40 mg tablet,delayed release (DR/EC) 40 mg PO QHS losartan 25 mg tablet 25 mg PO DAILY gabapentin 300 mg capsule 300 mg PO BID Patient Comments: [NO ORIGINAL SIG] mirtazapine 7.5 mg tablet 7.5 mg PO QHS cyanocobalamin (vitamin B-12) 1,000 mcg tablet 1,000 mcg PO DAILY guaifenesin 600 mg tablet extended release 12hr 600 mg PO BID Patient Comments: [NO ORIGINAL SIG] Referrals / Follow Up: Wayne Conde DO [Primary Care Provider] - In 1 Week (You will need repeat x-rays of your left shoulder in 1 to 2 weeks) Wayne Conde [[facility]] - Disposition Disposition (needs filled in before D/C Order can be placed): Home, Self Care 01/04/25 5666 Priyank Bauer DO CC: Dr. Wayne Conde DO; Dr. Aaliyah Lafleur MD Signed Normal [facility] 36on 01-03-2025 36 Rx loaded [facility] Absolute lymphocyte countOrd ered By: Aaliyah Lafleur on 01-03-2025 Lymphocytes Auto (Unsp spec) [#/Vol] 1.44 10*3/uL 0.83-4.51 [facility] Absolute neutrophil countOrd ered By: Aaliyah Lafleur on 01-03-2025 Neutrophils (Bld) [#/Vol] 3.5 10*3/uL 2.0-7.7 [facility] Automated lymphocyte count a s percentage of total leukocytesOrdered By: Aaliyah Lafleur on 01-03-2025 Lymphocytes/100 WBC Auto (Unsp spec) 24.1 % 19-41 [facility] Basic Metabolic Profile (BMP )on 01-03-2025 BUN/CRE 13.5 RATIO Normal 10- [facility] Comment on above: Performed By: #### L 100.0500, L501.5200, L500.2500 #### [facility] [address] [place], [address] CA,Total 8.6 mg/dL Normal 8.5-10.1 [facility] Comment on above: Performed By: #### L 100.0500, L501.5200, L500.2500 #### [facility] [address] [place], [address] Chloride [Moles/Vol] 111 mmol/L High 98-107 [facility] Comment on above: Performed By: #### L 100.0500, L501.5200, L500.2500 #### [facility] [address] [place], [address] CO2 [Moles/Vol] 22.0 mmol/L Normal 21.0-32.0 [facility] Comment on above: Performed By: #### L 100.0500, L501.5200, L500.2500 #### [facility] [address] [place], [address] Creatinine [Mass/Vol] 1.04 mg/dL High 0.55-1.02 [facility] Comment on above: Result Comment: The validity of the calculated GFR GFRAA in patients over 70 years has not been determined. Clinical correlation is essential. Performed By: #### L 100.0500, L501.5200, L500.2500 #### [facility] [address] [place], [address] ECRCL 28.41 ml/min Normal [facility] Comment on above: Performed By: #### L 100.0500, L501.5200, L500.2500 #### [facility] [address] [place], [address] EST GFR - AA 65 mL/min Normal >60 [facility] Comment on above: Result Comment: Afri can [place] GFR Calc Performed By: #### L 100.0500, L501.5200, L500.2500 #### [facility] [address] [place], [address] GAP 7 Normal 5-15 [facility] Comment on above: Performed By: #### L 100.0500, L501.5200, L500.2500 #### [facility] [address] [place], [address] GFR/1.73 sq M.predicted among non-blacks MDRD (S/P/Bld) [Vol rate/Area] 54 mL/min/{1.73_m2} Low >60 [facility] Comment on above: Result Comment: Non- GFR Calc Performed By: #### L 100.0500, L501.5200, L500.2500 #### [facility] [address] [place], [address] Glucose [Mass/Vol] 100 mg/dL Normal 74-106 [facility] Comment on above: Result Comment: Fast ing Glucose result from 100 to 125 mg/dL suggests IMPAIRED HOMEOSTASIS per A.D.A. criteria. Performed By: #### L 100.0500, L501.5200, L500.2500 #### [facility] [address] [place], [address] Potassium [Moles/Vol] 3.7 mmol/L Normal 3.5-5.1 [facility] Comment on above: Performed By: #### L 100.0500, L501.5200, L500.2500 #### [facility] [address] [place], [address] Sodium [Moles/Vol] 140 mmol/L Normal 136-145 [facility] Comment on above: Performed By: #### L 100.0500, L501.5200, L500.2500 #### [facility] [address] [place], [address] Urea nitrogen [Mass/Vol] 14 mg/dL Normal 7-18 [facility] Comment on above: Performed By: #### L 100.0500, L501.5200, L500.2500 #### [facility] [address] [place], [address] Basophil percentageOrdered B y: Aaliyah Lafleur on 01-03-2025 Basophils/100 WBC (Bld) 0.7 % 0-1 [facility] Blood urea nitrogen (BUN)/cr eatinine ratioOrdered By: Aaliyah Lafleur on 01-03-2025 Urea nitrogen/Creatinine [Mass ratio] 13.5 mg/mg 10- [facility] CBC W/Diff, Automatedon 12-25 0-2024 Absolute Lymph 1.44 X10 3/uL Normal 0.83-4.51 [facility] Comment on above: Performed By: #### L 100.0500, L501.5200, L500.2500 #### [facility] [address] [place], [address] Absolute Neut 3.5 X10 3/uL Normal 2.0-7.7 [facility] Comment on above: Performed By: #### L 100.0500, L501.5200, L500.2500 #### [facility] [address] [place], [address] Basophils/100 WBC (Bld) 0.7 % Normal 0-1 [facility] Comment on above: Performed By: #### L 100.0500, L501.5200, L500.2500 #### [facility] [address] [place], [address] Eosinophils/100 WBC (Bld) 1.2 % Normal 0-5 [facility] Comment on above: Performed By: #### L 100.0500, L501.5200, L500.2500 #### [facility] [address] [place], [address] Erythrocyte distribution width (RBC) [Ratio] 15.7 % High 11.6-14.6 [facility] Comment on above: Performed By: #### L 100.0500, L501.5200, L500.2500 #### [facility] [address] [place], [address] Hematocrit (Bld) [Volume fraction] 29.2 % Low 37-47 [facility] Comment on above: Performed By: #### L 100.0500, L501.5200, L500.2500 #### [facility] [address] [place], [address] Hemoglobin (Bld) [Mass/Vol] 9.1 g/dL Low 12.0-15.0 [facility] Comment on above: Performed By: #### L 100.0500, L501.5200, L500.2500 #### [facility] [address] [place], [address] IG% 0.300 Normal 0.0-0.9 [facility] Comment on above: Result Comment: IG% - Immature Granulocytes (promyelocytes, myelocytes and metamyelocytes) > 1% indicates that a LEFT SHIFT is Present. Performed By: #### L 100.0500, L501.5200, L500.2500 #### [facility] [address] [place], [address] Lymphocytes/100 WBC (Bld) 24.1 % Normal 19-41 [facility] Comment on above: Performed By: #### L 100.0500, L501.5200, L500.2500 #### [facility] [address] [place], [address] MCH (RBC) [Entitic mass] 27.3 pg Normal 27.0-32.0 [facility] Comment on above: Performed By: #### L 100.0500, L501.5200, L500.2500 #### [facility] [address] [place], [address] MCHC (RBC) [Mass/Vol] 31.2 g/dL Low 32-36 [facility] Comment on above: Performed By: #### L 100.0500, L501.5200, L500.2500 #### [facility] [address] [place], [address] MCV (RBC) [Entitic vol] 87.7 fL Normal 81-99 [facility] Comment on above: Performed By: #### L 100.0500, L501.5200, L500.2500 #### [facility] [address] [place], [address] Monocytes/100 WBC (Bld) 14.6 % High 0-10 [facility] Comment on above: Performed By: #### L 100.0500, L501.5200, L500.2500 #### [facility] [address] [place], [address] Neutrophils/100 WBC (Bld) 59.1 % Normal 47-70 [facility] Comment on above: Performed By: #### L 100.0500, L501.5200, L500.2500 #### [facility] [address] [place], [address] Nucleated RBC (Bld) [#/Vol] 0 10*3/uL Normal 0-5 [facility] Comment on above: Performed By: #### L 100.0500, L501.5200, L500.2500 #### [facility] [address] [place], [address] Platelet mean volume (Bld) [Entitic vol] 11.1 fL Normal 6.2-12.0 [facility] Comment on above: Performed By: #### L 100.0500, L501.5200, L500.2500 #### [facility] [address] [place], [address] Platelets (Bld) [#/Vol] 298 10*3/uL Normal 150-450 [facility] Comment on above: Performed By: #### L 100.0500, L501.5200, L500.2500 #### [facility] [address] [place], [address] RBC (Bld) [#/Vol] 3.33 10*6/uL Low 4.2-5.4 [facility] Comment on above: Performed By: #### L 100.0500, L501.5200, L500.2500 #### [facility] [address] [place], [address] RDW SD 50.5 fl High 35.1-43.9 [facility] Comment on above: Performed By: #### L 100.0500, L501.5200, L500.2500 #### [facility] [address] [place], [address] WBC (Bld) [#/Vol] 6.0 10*3/uL Normal 4.4-11.0 [facility] Comment on above: Performed By: #### L 100.0500, L501.5200, L500.2500 #### [facility] [address] [place], [address] Carbon dioxide measurementOr dered By: Aaliyah Lafleur on 01-03-2025 CO2 [Moles/Vol] 22.0 mmol/L 21.0-32.0 [facility] Chloride measurementOrdered By: Aaliyah Lafleur on 01-03-2025 Chloride [Moles/Vol] 111 mmol/L High 98-107 [facility] Eosinophil percentageOrdered By: Aaliyah Lafleur on 01-03-2025 Eosinophils/100 WBC (Bld) 1.2 % 0-5 [facility] Erythrocyte distribution wid th ratioOrdered By: Aaliyah Lafleur on 01-03-2025 Erythrocyte distribution width (RBC) [Ratio] 15.7 % High 11.6-14.6 [facility] Erythrocyte distribution wid th standard deviationOrdered By: Aaliyah Lafleur on 01-03-2025 Erythrocyte distribution width (RBC) [Entitic vol] 50.5 fL High 35.1-43.9 [facility] Erythrocyte distribution width (RBC) [Ratio] 50.5 fl High 35.1-43.9 [facility] Estimated glomerular filtrat ion rate (GFR) AmericanOrdered By: Aaliyah Lafleur on 01-03-2025 Estimated GFR (MDRD) Amer 65 mL/min >60 [facility] Comment on above: GFR Calc Estimation of creatinine aneesh aranceOrdered By: Aaliyah Lafleur on 01-03-2025 Estimated Creatinine Clearance Calc 28.41 ml/min [facility] Glomerular filtration rate ( GFR) estimationOrdered By: Aaliyah Lafleur on 01-03-2025 Estimated GFR (MDRD) Non-Af Amer 54 mL/min Low >60 [facility] Comment on above: Non- GFR Calc GFR/1.73 sq M.predicted among non-blacks MDRD (S/P/Bld) [Vol rate/Area] 54 mL/min/{1.73_m2} Low >60 [facility] Comment on above: Non- GFR Calc Glucose measurementOrdered B y: Aaliyah Lafleur on 01-03-2025 Glucose [Mass/Vol] 100 mg/dL 74-106 [facility] Comment on above: Fasting Glucose resu lt from 100 to 125 mg/dL suggests IMPAIRED HOMEOSTASIS per A.D.A. criteria. Hematocrit Auto (Bld) [Volum e fraction]Ordered By: Aaliyah Lafleur on 01-03-2025 Hematocrit (Bld) [Volume fraction] 29.2 % Low 37-47 [facility] Hemoglobin measurementOrdere d By: Aaliyah Lfaleur on 01-03-2025 Hemoglobin (Bld) [Mass/Vol] 9.1 g/dL Low 12.0-15.0 [facility] Immature granulocytes/100 WB C Auto (Bld)Ordered By: Aaliyah Lafleur on 01-03-2025 Immature granulocytes/100 WBC (Bld) 0.300 % 0.0-0.9 [facility] Comment on above: IG% - Immature Granu locytes (promyelocytes, myelocytes and metamyelocytes) > 1% indicates that a LEFT SHIFT is Present. Lymphocytes Auto (Unsp spec) [#/Vol]Ordered By: Aaliyah Lafleur on 01-03-2025 Lymphocytes (Bld) [#/Vol] 1.44 10*3/uL 0.83-4.51 [facility] Lymphocytes/100 WBC Auto (Un sp spec)Ordered By: Aaliyah Lafleur on 01-03-2025 Lymphocytes/100 WBC (Bld) 24.1 % 19-41 [facility] MCV (mean corpuscular volume ) determinationOrdered By: Aaliyah Lafleur on 01-03-2025 MCV (RBC) [Entitic vol] 87.7 fL 81-99 [facility] Mean corpuscular hemoglobin (MCH) determinationOrdered By: Aaliyah Lafleur on 01-03-2025 MCH (RBC) [Entitic mass] 27.3 pg 27.0-32.0 [facility] Mean corpuscular hemoglobin concentration (MCHC) determinationOrdered By: Aaliyah Lafleur on 01-03-2025 MCHC (RBC) [Mass/Vol] 31.2 g/dL Low 32-36 [facility] Mean platelet volume determi nationOrdered By: Aaliyah Lafleur on 01-03-2025 Platelet mean volume (Bld) [Entitic vol] 11.1 fL 6.2-12.0 [facility] Monocyte percentageOrdered B y: Aaliyah Lafleur on 01-03-2025 Monocytes/100 WBC (Bld) 14.6 % High 0-10 [facility] Neutrophil percentageOrdered By: Aaliyah Lafleur on 01-03-2025 Neutrophils/100 WBC (Bld) 59.1 % 47-70 [facility] Nucleated red blood cell per centageOrdered By: Aaliyah Lafleur on 01-03-2025 Nucleated RBC/100 WBC (Bld) [Ratio] 0 % 0-5 [facility] Platelet countOrdered By: Fabian Lafleur on 01-03-2025 Platelets (Bld) [#/Vol] 298 10*3/uL 150-450 [facility] Potassium measurementOrdered By: Aaliyah Lafleur on 01-03-2025 Potassium [Moles/Vol] 3.7 mmol/L 3.5-5.1 [facility] RBC Auto (Bld) [#/Vol]Ordere d By: Aaliyah Lafleur on 01-03-2025 RBC (Bld) [#/Vol] 3.33 10*6/uL Low 4.2-5.4 [facility] Serum anion gap measurementO rdered By: Aaliyah Lafleur on 01-03-2025 Anion gap [Moles/Vol] 7 mmol/L 5-15 [facility] Serum or plasma calcium harish urement (mass/volume)Ordered By: Aaliyah Lafleur on 01-03-2025 Calcium [Mass/Vol] 8.6 mg/dL 8.5-10.1 [facility] Serum or plasma creatinine m easurement (mass/volume)Ordered By: Aaliyah Lafleur on 01-03-2025 Creatinine [Mass/Vol] 1.04 mg/dL High 0.55-1.02 [facility] Comment on above: The validity of the calculated GFR & GFRAA in patients over 70 years has not been determined. Clinical correlation is essential. Serum or plasma urea nitroge n measurement (mass/volume)Ordered By: Aaliyah Lafleur on 01-03-2025 Urea nitrogen [Mass/Vol] 14 mg/dL 7-18 [facility] Shoulder min 2 Viewson 01-03 Shoulder min 2 Views [facility] Imaging Services [address] [place] [address] Shoulder min 2 Views MR#: [id number] Acct: [id number] Name: FARZANA HERRON Rep #: [id number] : 1940 F 84 From: Priyank Alas MD PCP: Dr. Wayne Conde DO Status: DIS PETERSON Study: Shoulder min 2 Views Date of Exam: 01/03/25 Exam# [id number] Ordering Dr: Aaliyah Lafleur MD EXAM: XR Left Shoulder Complete, 2 or More Views CLINICAL INDICATION: TECHNIQUE: Two or more views of the left shoulder. COMPARISON: No relevant prior studies available. FINDINGS: BONES/JOINTS: Cortical irregularity of the humeral neck, likely impacted fracture. No dislocation. SOFT TISSUES: Soft tissue swelling. RAD/Shoulder min 2 Views IMPRESSION: Cortical irregularity of the humeral neck, likely impacted fracture. [facility] CC: Dr. Wayne Conde DO; Dr. Aaliyah Lafleur MD Animated Cartoons Painter: Signed Normal [facility] Sodium levelOrdered By: Teajs Lafleur on 01-03-2025 Sodium [Moles/Vol] 140 mmol/L 136-145 [facility] White blood cell (WBC) count Ordered By: Aaliyah Lafleur on 01-03-2025 WBC (Bld) [#/Vol] 6.0 10*3/uL 4.4-11.0 [facility] Basic Metabolic Profile (BMP )on 01-02-2025 BUN/CRE 7.9 RATIO Low 10-20 [facility] Comment on above: Performed By: #### L 100.0100, L500.2500 ####[facility] [address] [place], [address] CA,Total 9.3 mg/dL Normal 8.5-10.1 [facility] Comment on above: Performed By: #### L 100.0100, L500.2500 ####[facility] [address] [place], [address] Chloride [Moles/Vol] 109 mmol/L High 98-107 [facility] Comment on above: Performed By: #### L 100.0100, L500.2500 ####[facility] [address] [place], [address] CO2 [Moles/Vol] 21.0 mmol/L Normal 21.0-32.0 [facility] Comment on above: Performed By: #### L 100.0100, L500.2500 ####[facility] [address] [place], [address] Creatinine [Mass/Vol] 1.40 mg/dL High 0.55-1.02 [facility] Comment on above: Result Comment: The validity of the calculated GFR GFRAA in patients over 70 years has not been determined. Clinical correlation is essential. Performed By: #### L 100.0100, L500.2500 ####[facility] [address] [place], [address] ECRCL 24.67 ml/min Normal [facility] Comment on above: Performed By: #### L 100.0100, L500.2500 ####[facility] [address] [place], [address] EST GFR - AA 46 mL/min Low >60 [facility] Comment on above: Result Comment: Afri can [place] GFR Calc Performed By: #### L 100.0100, L500.2500 ####[facility] [address] [place], [address] GAP 10 Normal 5-15 [facility] Comment on above: Performed By: #### L 100.0100, L500.2500 ####[facility] [address] [place], [address] GFR/1.73 sq M.predicted among non-blacks MDRD (S/P/Bld) [Vol rate/Area] 38 mL/min/{1.73_m2} Low >60 [facility] Comment on above: Result Comment: Non- GFR Calc Performed By: #### L 100.0100, L500.2500 ####[facility] [address] [place], [address] Glucose [Mass/Vol] 116 mg/dL High 74-106 [facility] Comment on above: Result Comment: Fast ing Glucose result from 100 to 125 mg/dL suggests IMPAIRED HOMEOSTASIS per A.D.A. criteria. Performed By: #### L 100.0100, L500.2500 ####[facility] [address] [place], [address] Potassium [Moles/Vol] 3.8 mmol/L Normal 3.5-5.1 [facility] Comment on above: Performed By: #### L 100.0100, L500.2500 ####[facility] [address] [place], [address] Sodium [Moles/Vol] 140 mmol/L Normal 136-145 [facility] Comment on above: Performed By: #### L 100.0100, L500.2500 ####[facility] [address] [place], [address] Urea nitrogen [Mass/Vol] 11 mg/dL Normal 7-18 [facility] Comment on above: Performed By: #### L 100.0100, L500.2500 ####[facility] [address] [place], [address] CBC W/Diff, Automatedon 02-0 9-2024 Absolute Lymph 1.48 X10 3/uL Normal 0.83-4.51 [facility] Comment on above: Performed By: #### L 100.0100, L500.2500 ####[facility] [address] [place], [address] Absolute Neut 5.8 X10 3/uL Normal 2.0-7.7 [facility] Comment on above: Performed By: #### L 100.0100, L500.2500 ####[facility] [address] [place], [address] Basophils/100 WBC (Bld) 0.5 % Normal 0-1 [facility] Comment on above: Performed By: #### L 100.0100, L500.2500 ####[facility] [address] [place], [address] Eosinophils/100 WBC (Bld) 1.6 % Normal 0-5 [facility] Comment on above: Performed By: #### L 100.0100, L500.2500 ####[facility] [address] [place], [address] Erythrocyte distribution width (RBC) [Ratio] 15.9 % High 11.6-14.6 [facility] Comment on above: Performed By: #### L 100.0100, L500.2500 ####[facility] [address] [place], [address] Hematocrit (Bld) [Volume fraction] 33.6 % Low 37-47 [facility] Comment on above: Performed By: #### L 100.0100, L500.2500 ####[facility] [address] [place], [address] Hemoglobin (Bld) [Mass/Vol] 10.3 g/dL Low 12.0-15.0 [facility] Comment on above: Performed By: #### L 100.0100, L500.2500 ####[facility] [address] [place], [address] IG% 0.200 Normal 0.0-0.9 [facility] Comment on above: Result Comment: IG% - Immature Granulocytes (promyelocytes, myelocytes and metamyelocytes) > 1% indicates that a LEFT SHIFT is Present. Performed By: #### L 100.0100, L500.2500 ####[facility] [address] [place], [address] Lymphocytes/100 WBC (Bld) 17.7 % Low 19-41 [facility] Comment on above: Performed By: #### L 100.0100, L500.2500 ####[facility] [address] [place], [address] MCH (RBC) [Entitic mass] 27.1 pg Normal 27.0-32.0 [facility] Comment on above: Performed By: #### L 100.0100, L500.2500 ####[facility] [address] [place], [address] MCHC (RBC) [Mass/Vol] 30.7 g/dL Low 32-36 [facility] Comment on above: Performed By: #### L 100.0100, L500.2500 ####[facility] [address] [place], [address] MCV (RBC) [Entitic vol] 88.4 fL Normal 81-99 [facility] Comment on above: Performed By: #### L 100.0100, L500.2500 ####[facility] [address] [place], [address] Monocytes/100 WBC (Bld) 10.2 % High 0-10 [facility] Comment on above: Performed By: #### L 100.0100, L500.2500 ####[facility] [address] [place], [address] Neutrophils/100 WBC (Bld) 69.8 % Normal 47-70 [facility] Comment on above: Performed By: #### L 100.0100, L500.2500 ####[facility] [address] [place], [address] Nucleated RBC (Bld) [#/Vol] 0 10*3/uL Normal 0-5 [facility] Comment on above: Performed By: #### L 100.0100, L500.2500 ####[facility] [address] [place], [address] Platelet mean volume (Bld) [Entitic vol] 11.4 fL Normal 6.2-12.0 [facility] Comment on above: Performed By: #### L 100.0100, L500.2500 ####[facility] [address] [place], [address] Platelets (Bld) [#/Vol] 346 10*3/uL Normal 150-450 [facility] Comment on above: Performed By: #### L 100.0100, L500.2500 ####[facility] [address] [place], [address] RBC (Bld) [#/Vol] 3.80 10*6/uL Low 4.2-5.4 [facility] Comment on above: Performed By: #### L 100.0100, L500.2500 ####[facility] [address] [place], [address] RDW SD 51.1 fl High 35.1-43.9 [facility] Comment on above: Performed By: #### L 100.0100, L500.2500 ####[facility] [address] [place], [address] WBC (Bld) [#/Vol] 8.4 10*3/uL Normal 4.4-11.0 [facility] Comment on above: Performed By: #### L 100.0100, L500.2500 ####[facility] [address] [place], [address] Emergency Department Summary on 01-02-2025 Emergency Department Summary [facility] Medical Records Department [address] [place] [address] Emergency Department Summary 01/02/25 MR#: [id number] Acct: [id number] Name: FARZANA HERRON Rep #: [id number] : 1940 84 From: Frederic Garcia MD PCP: Dr. Wayne Conde, DO Status:DIS PETERSON [facility] History of Present Illness Chief Complaint: Dislocation Narrative Narrative: 84-year-old female who denies significant past medical history, right hand dominant presents status post fall onto her left shoulder. She states that she was walking and tripped, and fell onto her left shoulder. She denies hitting her head or loss of consciousness, no neck pain or other injury. She now has pain diffusely throughout her left shoulder and upper arm with difficulty moving it. EMS noted deformity/possible dislocation of left shoulder. She did take a [place] tablet prior to arrival. [facility] Home Medications ???Medication ???Instructions ???Recorded ???Last Taken ???Type aspirin 81 mg tablet,delayed mg DAILY 01/02/25 Unknown History release atorvastatin 10 mg tablet mg DAILY 01/02/25 Unknown History calcium 500 mg (as tab 01/02/25 Unknown History carbonate)-vitamin D3 5 mcg (200 unit) tablet (Oyster Shell Calcium-Vitamin D3) clopidogrel 75 mg tablet mg DAILY 01/02/25 Unknown History donepezil 5 mg tablet mg DAILY 01/02/25 Unknown History ergocalciferol (vitamin D2) 1,250 01/02/25 Unknown History mcg (50,000 unit) capsule gabapentin 300 mg capsule mg 01/02/25 Unknown History isosorbide mononitrate 60 mg mg PO DAILY 01/02/25 Unknown Histo ry tablet,extended release 24 hr levothyroxine 50 mcg tablet mcg DAILY 01/02/25 Unknown History losartan 25 mg tablet mg DAILY 01/02/25 Unknown History metoprolol succinate 50 mg mg PO DAILY 01/02/25 Unknown Histo ry tablet,extended release 24 hr mirtazapine 7.5 mg tablet mg 01/02/25 Unknown History omega 5-tgi-mjy-fish oil 300 1 cap PO DAILY 01/02/25 Unknown Hi story mg-1,000 mg capsule (Fish Oil) pantoprazole 40 mg tablet,delayed mg PO DAILY 01/02/25 Unknown Hist ory release sucralfate 1 gram tablet 01/02/25 Unknown History Allergy/AdvReac Type Severity Reaction Status Date / Time codeine AdvReac Intermediate UNKNOWN Verified 01/02/25 16:34 Social History Smoking Status: Never smoker ROS ROS ED ROS Narrative Review of systems positive for left shoulder pain and limited range of motion secondary to pain. No headache. No neck pain. Denies other injuries. Patient states she is status post mechanical fall. EXAM Physical Exam Narrative Exam Narrative: GCS 15. ABCs intact. HEENT examination grossly unremarkable, PERRL, EOMI. Neck soft and supple. Examination of the left shoulder shows diffuse tenderness to palpation about the proximal humerus. She is holding her shoulder anteriorly. No crepitance. No clavicular tenderness. Palpable radial pulse, left. Lungs clear to auscultation bilaterally. Cardiovascular examination reveals a regular rate and rhythm. Abdomen soft and nontender. Const Vital Signs: 01/02/25 16:34 Temperature 96.9 F L Temperature Source Temporal Pulse Rate 74 Respiratory Rate 16 Blood Pressure 152/135 H Blood Pressure Mean 140 Pulse Ox 99 MDM MDM MDM Narrative Medical decision making narrative: Differential diagnosis includes but not limited to shoulder contusion versus proximal humerus fracture versus left shoulder dislocation versus fracture dislocation. X-rays will be obtained of the left shoulder and saline inserted to administer analgesia. Patient received morphine initially as well as ondansetron. On my independent interpretation of the x-ray of the proximal humerus, there is an impacted fracture. I also discussed this with the radiologist. In discussion with the patient's and the patient herself, as she will be placed in a sling and swath, her activities of daily living are limited. I will obtain baseline laboratories and discussed the patient with the hospitalist for observation as she may require temporary placement in a fdc facility versus home physical therapy/Occupational Therapy. Disposition is assigned observation. Patient is in stable condition. I discussed patient with Dr. Aaliyah Lafleur. She requested that x-rays of the left knee and of the left tibia and fibula be obtained secondary to tenderness to palpation. On my independent interpretation of the x-ray of the left tibia and fibula, there is no acute fracture. Additionally on my independent interpretation of the left knee, there is no evidence of acute fracture or effusion. I reviewed the radiology reports of these x-rays and they confirm my independent interpretations. Disposition was admitte (more content not included)... Normal [facility] H AND P Exam - [facility] 01-02-2025 H&P Exam - Hospitalist [facility] Medical Records Department [address] [place] [address] H P Exam - Hospitalist 01/02/252047 MR#: [id number] Acct: [id number] Name: FARZANA HERRON Rep #: [id number] : 1940 84 From: Aaliyah Lafleur MD PCP: Dr. Wayne Conde, DO Status:DIS PETERSON Location: [facility] NK385-0 HPI - General General Date of Admission: 01/02/25 Date of Service: 01/02/25 Chief Complaint: left shoulder pain HPI Narrative FARZANA HERRON, is a 84-year-old female with history of hypothyroidism, coronary disease, dementia, hypertension, GERD presented [facility] ED 01/02/2025 after a fall. She is right-hand dominant and fell onto her left shoulder. Fall was mechanical. Did not hit her head or lose consciousness. Does note pain through her shoulder prompting EMS call and patient was brought to the ED. In the ED patient alert but hypertensive but overall vitally stable, BMP with creatinine of 1.4 with no baseline and hemoglobin of 10.3. Shoulder x-ray interpreted by ED physician as nondisplaced impaction fracture, initial shoulder x-ray read as negative however after ED physician discussed with radiologist it was determined that there was a left nondisplaced impaction fracture along the lateral aspect of the humeral head. Given patient will be unable to care for self at home and family unable to help care for her hospitalist contacted for admission. Patient evaluated bedside and reports mechanical fall onto her left shoulder and states she tripped over something, denies hitting her head but did hit her left knee when she fell. ROS otherwise negative PFSH Home Medications ???Medication ???Instructions ???Recorded ???Last Taken ???Type aspirin 81 mg tablet,delayed mg DAILY 01/02/25 Unknown History release atorvastatin 10 mg tablet mg DAILY 01/02/25 Unknown History calcium 500 mg (as tab 01/02/25 Unknown History carbonate)-vitamin D3 5 mcg (200 unit) tablet (Oyster Shell Calcium-Vitamin D3) clopidogrel 75 mg tablet mg DAILY 01/02/25 Unknown History donepezil 5 mg tablet mg DAILY 01/02/25 Unknown History ergocalciferol (vitamin D2) 1,250 01/02/25 Unknown History mcg (50,000 unit) capsule gabapentin 300 mg capsule mg 01/02/25 Unknown History isosorbide mononitrate 60 mg mg PO DAILY 01/02/25 Unknown Histo ry tablet,extended release 24 hr levothyroxine 50 mcg tablet mcg DAILY 01/02/25 Unknown History losartan 25 mg tablet mg DAILY 01/02/25 Unknown History metoprolol succinate 50 mg mg PO DAILY 01/02/25 Unknown Histo ry tablet,extended release 24 hr mirtazapine 7.5 mg tablet mg 01/02/25 Unknown History omega 6-otu-lwr-fish oil 300 1 cap PO DAILY 01/02/25 Unknown Hi story mg-1,000 mg capsule (Fish Oil) pantoprazole 40 mg tablet,delayed mg PO DAILY 01/02/25 Unknown Hist ory release sucralfate 1 gram tablet 01/02/25 Unknown History Allergy/AdvReac Type Severity Reaction Status Date / Time codeine AdvReac Intermediate UNKNOWN Verified 01/02/25 16:34 Social History Smoking Status: Never smoker ROS ROS Narrative General: Denies fever/chills HENT: Denies headache, denies stuffy nose, denies sore throat EYES: Denies changes in vision Resp: Denies cough, denies shortness of breath Cardiac: Denies chest pain GI: Denies abdominal pain, denies changes in bowel, denies nausea/vomiting : Denies changes in urination Extremity: Denies swelling MSK: Denies weakness, some left shoulder soreness as well as left knee and luis soreness Neuro: Denies any numbness/tingling Heme: Denies any bleeding or bruising Skin: Denies rashes Psychiatric: No complaints voiced Vital Signs Vital Signs Vital Signs: 01/02/25 16:34 01/02/25 18:33 01/02/25 19:17 Temperature 96.9 F L 96.9 F L Temperature Source Temporal Pulse Rate 74 74 Respiratory Rate 16 16 Blood Pressure 152/135 H 149/84 H 149/84 H Blood Pressure Mean 140 105 105 Pulse Ox 99 100 100 Oxygen Delivery Method Room Air 01/02/25 20:00 Temperature Temperature Source Pulse Rate 81 Respiratory Rate 20 H Blood Pressure 130/88 H Blood Pressure Mean 102 Pulse Ox 99 Oxygen Delivery Method Weight Weight: 53.2 kg Body Mass Index (BMI) 20.1 Physical Exam Narrative General: Alert, no apparent distress HEENT: Atraumatic, normocephalic Eyes: Anicteric, normal conjunctiva, extraocular movements grossly intact Neck: Supple Respiratory: Clear to auscultation bilaterally, normal respiratory effort Cardiovascular: Regular rate and rhythm GI: Soft, nontender, nondistended Extremities: No edema Musculoskeletal: Left upper extremity sling in place, pain in left knee and left luis Neuro: No overt focal neurological deficits Skin: Some (more content not included)... Normal [facility] Knee 4 or More Viewson 01-02 Knee 4 or More Views [facility] Imaging Services [address] [place] [address] Knee 4 or More Views MR#: [id number] Acct: [id number] Name: FARZANA HERRON Rep #: [id number] : 1940 F 84 From: Zunilda Armijo MD PCP: Dr. Wayne Conde, DO Status: DIS PETERSON Study: Knee 4 or More Views Date of Exam: 01/02/25 Exam# [id number] Ordering Dr: Frederic Garcia MD PROCEDURE: KNEE 4 OR MORE VIEWS REASON FOR EXAM: Trauma TECHNIQUE: 4 views of the left knee COMPARISON: 01/02/2025 FINDINGS: No fracture. No suspicious bone lesion. Normal alignment. No effusion. Soft tissues are unremarkable. RAD/Knee 4 or More Views IMPRESSION: 1. No acute abnormality. Reading Location: [facility] CC: Dr. Frederic Garcia MD; Dr. 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 Normal [facility] Shoulder min 2 Viewson 01-02 Shoulder min 2 Views [facility] Imaging Services [address] [place] [id number] Shoulder min 2 Views MR#: [id number] Acct: [id number] Name: FARZANA HERRON Rep #: [id number] : 1940 F 84 From: Zunilda Armijo MD PCP: Dr. Wayne Conde DO Status: DIS PETERSON Study: Shoulder min 2 Views Date of Exam: 01/02/25 Exam# [id number] Ordering Dr: Frederic Garcia MD ADDENDUM by Dr. Zunilda Armijo MD on 01/02/25 at 1828 Based on additional clinical information, a nondisplaced impaction fracture along the lateral aspect of the humeral head is possible. Additional shoulder radiograph there is or and CT of the shoulder can be considered for further assessment. Reading Location: [facility] 01/02/25 1828 Date cc: Dr. Frederic Garcia MD; Dr. Wayne Conde DO * Signed PROCEDURE: SHOULDER MIN 2 VIEWS REASON FOR EXAM: Trauma TECHNIQUE: Two views of the left shoulder COMPARISON: None. FINDINGS: No acute fracture or dislocation.Degenerative spurring is present at the humeral aspect of the glenohumeral joint. No soft tissue abnormality. The visualized lung hackett are clear. RAD/Shoulder min 2 Views IMPRESSION: 1. No acute findings. Reading Location: [facility] CC: Dr. Frederic Garcia MD; Dr. 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 Normal [facility] Tibia Fibula 2 Viewson 01-02 Tibia Fibula 2 Views [facility] Imaging Services [address] [place], [place] [address] Tibia Fibula 2 Views MR#: [id number] Acct: [id number] Name: FARZANA HERRON Rep #: [id number] : 1940 F 84 From: Zunilda Armijo MD PCP: Dr. Wayne Conde DO Status: DIS PETERSON Study: Tibia Fibula 2 Views Date of Exam: 01/02/25 Exam# [id number] Ordering Dr: Frederic Garcia MD PROCEDURE: TIBIA FIBULA 2 VIEWS REASON FOR EXAM: Trauma, pain TECHNIQUE: 2 view(s) of the left tibia and fibula COMPARISON: None. FINDINGS: No fracture. No suspicious bone lesion. Normal alignment at the knee and ankle. Soft tissues are unremarkable. RAD/Tibia Fibula 2 Views IMPRESSION: 1. No acute abnormality. Reading Location: [facility] CC: Dr. Frederic Garcia MD; Dr. 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 Normal [facility] Urinalysis, Completeon 01-02 BACTERIA Normal None Seen [facility] Comment on above: Order Comment: 508.1 Result Comment: SUPRIYA ENT DISCHARGED-NO SPECIMEN REC'D Performed By: #### L 100.0500, L501.9520, L500.2500 #### [facility] [address] [place], [place], [id number] BILIRUBIN URINE Normal Negative [facility] Comment on above: Order Comment: 508.1 Result Comment: SUPRIYA ENT DISCHARGED-NO SPECIMEN REC'D Performed By: #### L 100.0500, L501.9520, L500.2500 #### [facility] [address] [place], [address] Clarity (U) Normal Clear [facility] Comment on above: Order Comment: 508.1 Result Comment: SUPRIYA ENT DISCHARGED-NO SPECIMEN REC'D Performed By: #### L 100.0500, L501.9520, L500.2500 #### [facility] [address] [place], [address] Color (U) Normal Yellow [facility] Comment on above: Order Comment: 508.1 Result Comment: SUPRIYA ENT DISCHARGED-NO SPECIMEN REC'D Performed By: #### L 100.0500, L501.9520, L500.2500 #### [facility] [address] [place], [address] EPI,SQUAMOUS Normal 5-10 [facility] Comment on above: Order Comment: 508.1 Result Comment: SUPRIYA ENT DISCHARGED-NO SPECIMEN REC'D Performed By: #### L 100.0500, L501.9520, L500.2500 #### [facility] [address] [place], [address] GLUCOSE, UR Normal Normal [facility] Comment on above: Order Comment: 508.1 Result Comment: SUPRIYA ENT DISCHARGED-NO SPECIMEN REC'D Performed By: #### L 100.0500, L501.9520, L500.2500 #### [facility] [address] [place], [address] KETONE UR Normal Negative [facility] Comment on above: Order Comment: 508.1 Result Comment: SUPRIYA ENT DISCHARGED-NO SPECIMEN REC'D Performed By: #### L 100.0500, L501.9520, L500.2500 #### [facility] [address] [place], [address] LEUK ESTERASE Normal Negative [facility] Comment on above: Order Comment: 508.1 Result Comment: SUPRIYA ENT DISCHARGED-NO SPECIMEN REC'D Performed By: #### L 100.0500, L501.9520, L500.2500 #### [facility] [address] [place], [address] Mucus Ql (Urine sed) Normal [facility] Comment on above: Order Comment: 508.1 Result Comment: SUPRIYA ENT DISCHARGED-NO SPECIMEN REC'D Performed By: #### L 100.0500, L501.9520, L500.2500 #### [facility] [address] [place], [address] Nitrite Ql (U) Normal Negative [facility] Comment on above: Order Comment: 508.1 Result Comment: SUPRIYA ENT DISCHARGED-NO SPECIMEN REC'D Performed By: #### L 100.0500, L501.9520, L500.2500 #### [facility] [address] [place], [address] OCCULT BLOOD-UR Normal Negative [facility] Comment on above: Order Comment: 508.1 Result Comment: SUPRIYA ENT DISCHARGED-NO SPECIMEN REC'D Performed By: #### L 100.0500, L501.9520, L500.2500 #### [facility] [address] [place], [address] pH UR Normal 5.0 - 8.0 [facility] Comment on above: Order Comment: 508.1 Result Comment: SUPRIYA ENT DISCHARGED-NO SPECIMEN REC'D Performed By: #### L 100.0500, L501.9520, L500.2500 #### [facility] [address] [place], [address] PROT DIPSTX Normal Negative [facility] Comment on above: Order Comment: 508.1 Result Comment: SUPRIYA ENT DISCHARGED-NO SPECIMEN REC'D Performed By: #### L 100.0500, L501.9520, L500.2500 #### [facility] [address] [place], [address] RBC Normal 0-5 [facility] Comment on above: Order Comment: 508.1 Result Comment: SUPRIYA ENT DISCHARGED-NO SPECIMEN REC'D Performed By: #### L 100.0500, L501.9520, L500.2500 #### [facility] [address] [place], [address] SP.GR. DIPSTX Normal 1.002-1.03 0 [facility] Comment on above: Order Comment: 508.1 Result Comment: SUPRIYA ENT DISCHARGED-NO SPECIMEN REC'D Performed By: #### L 100.0500, L501.9520, L500.2500 #### [facility] [address] [place], [address] UR Preservative Normal [facility] Comment on above: Order Comment: 508.1 Result Comment: SUPRIYA ENT DISCHARGED-NO SPECIMEN REC'D Performed By: #### L 100.0500, L501.9520, L500.2500 #### [facility] [address] [place], [address] UROBILI Normal Normal [facility] Comment on above: Order Comment: 508.1 Result Comment: SUPRIYA ENT DISCHARGED-NO SPECIMEN REC'D Performed By: #### L 100.0500, L501.9520, L500.2500 #### [facility] [address] [place], [address] WBC Normal 0-5 [facility] Comment on above: Order Comment: 508.1 Result Comment: SUPRIYA ENT DISCHARGED-NO SPECIMEN REC'D Performed By: #### L 100.0500, L501.9520, L500.2500 #### [facility] [address] [place], [address] 36on 12-31-2024 36 Medication name: gua iFENesin (Mucinex) 600 MG 12 hr tablet Medication dosage: 600 mg (Miligrams Monthly quantity needed: 120 How many day supply requestin days Medication route: oral (PO) Medication administration time(s): Take 2 tablets (1,200 mg) by mouth 2 times daily If taking medication PRN, reason for taking medication: N/A If this is a controlled substance do you receive this or any other controlled medication from any other doctor or facility: N/A Ordering provider: Elton Date of last office visit: 12-22-24 Date of next office visit: 03-16-25 Date of last refill: (see medication tab): 07-12-24 Updated/Validated preferred pharmacy: Yes Patient instructed to contact the pharmacy prior to picking up the medication: Yes Normal [facility] CBC W Auto Differential pane l (Bld)on 12-23-2024 Basophils (Bld) [#/Vol] 31 10*3/uL [facility] [employer] Basophils/100 WBC (Bld) 0.4 % [facility] [employer] Eosinophils (Bld) [#/Vol] 148 10*3/uL [facility] Eosinophils/100 WBC (Bld) 1.9 % [facility] [employer] Erythrocyte distribution width (RBC) [Ratio] 13.6 % 11.0 - 15.0 % [facility] [employer] Hematocrit (Bld) [Volume fraction] 31.2 % Low 35.0 - 45.0 % [facility] Hemoglobin (Bld) [Mass/Vol] 9.9 g/dL Low 11.7 - 15.5 g/dL [facility] Lymphocytes (Bld) [#/Vol] 1927 10*3/uL [facility] Lymphocytes/100 WBC (Bld) 24.7 % [facility] MCH (RBC) [Entitic mass] 28.2 pg 27.0 - 33.0 pg [facility] MCHC (RBC) [Mass/Vol] 31.7 g/dL Low 32.0 - 36.0 g/dL [facility] [employer] Comment on above: For adults, a slight decrease in the calculated MCHC value (in the range of 30 to 32 g/dL) is most likely not clinically significant; however, it should be interpreted with caution in correlation with other red cell parameters and the patient's clinical condition. MCV (RBC) [Entitic vol] 88.9 fL 80.0 - 100.0 fL [facility] [employer] Monocytes (Bld) [#/Vol] 1022 10*3/uL High [facility] [employer] Monocytes/100 WBC (Bld) 13.1 % [facility] Neutrophils (Bld) [#/Vol] 4672 10*3/uL [facility] Neutrophils/100 WBC (Bld) 59.9 % [facility] Platelet mean volume (Bld) [Entitic vol] 12.3 fL 7.5 - 12.5 fL [facility] Platelets (Bld) [#/Vol] 294 10*3/uL [facility] RBC (Bld) [#/Vol] 3.51 10*6/uL Low [facility] WBC (Bld) [#/Vol] 7.8 10*3/uL [facility] Comprehensive metabolic 1998 panelon 12-23-2024 Albumin [Mass/Vol] 3.9 g/dL 3.6 - 5.1 g/dL [facility] Albumin/Globulin [Mass ratio] 1.6 {ratio} [facility] ALP [Catalytic activity/Vol] 94 U/L 37 - 153 U/L [facility] ALT [Catalytic activity/Vol] 27 U/L 6 - 29 U/L [facility] AST [Catalytic activity/Vol] 35 U/L 10 - 35 U/L [facility] Bilirubin [Mass/Vol] 0.5 mg/dL 0.2 - 1 .2 mg/dL [facility] Calcium [Mass/Vol] 8.8 mg/dL 8.6 - 10. 4 mg/dL [facility] Chloride [Moles/Vol] 105 mmol/L 98 - 11 0 mmol/L [facility] CO2 [Moles/Vol] 21 mmol/L 20 - 32 mmol/L [facility] Creatinine [Mass/Vol] 1.23 mg/dL High 0.60 - 0.95 mg/dL [facility] GFR/1.73 sq M.predicted among non-blacks MDRD (S/P/Bld) [Vol rate/Area] 43 mL/min/{1.73_m2} Low > OR = 60 mL/min/1.7 3m2 [facility] Globulin (S) [Mass/Vol] 2.5 g/dL [facility] Glucose [Mass/Vol] 91 mg/dL 65 - 99 mg/dL [facility] Comment on above: Fasting reference interval Potassium [Moles/Vol] 3.9 mmol/L 3.5 - 5.3 mmol/L [facility] Protein [Mass/Vol] 6.4 g/dL 6.1 - 8.1 g/dL [facility] Sodium [Moles/Vol] 138 mmol/L 135 - 146 mmol/L [facility] Urea nitrogen [Mass/Vol] 25 mg/dL 7 - 25 mg/dL [facility] Urea nitrogen/Creatinine [Mass ratio] 20 mg/mg [facility] Magnesiumon 12-23-2024 Magnesium [Mass/Vol] 1.2 mg/dL Low 1.5 - 2 .5 mg/dL [facility] No Panel Informationon 12-23 Interpretation and review of laboratory results Abnormal [facility] 29on 12-22-2024 29 Addended by: WAYNE CORBETT on: 12/26/2024 05:51 PM Modules accepted: Orders Normal [facility] No Panel InformationOrdered By: Amalia Fajardo on 12-22-2024 [facility] Office Visiton 12-22-2024 Follow-up visit [id number] Toma Herron 1940 F [facility] Provider Department Center 12/22/2024 [id number] CONDE F [facility] Family History Problem Relation Age of Onset Cancer Mother Comments: age 60 ? met bone CA, Heart disease Father Comments: age 70 No Known Problems Sister No Known Problems Sister Diabetes type II Sister COPD Sister Diabetes Sister No Known Problems Sister Comments: Liver disease Brother Comments: age 50 of ETOH abuse No Known Problems Brother Family Status - Relation Status Age at Mother 60 Notes: Bone CA Father 70 Notes: CAD Sister Sister Alive Sister Sister Sister Sister Sister Brother 50 Brother Alive Level of Service:34620 DE OFFICE/OUTPATIENT ESTABLISHED MOD MDM 30 MIN Reason for Visit and Comments: Follow-up [212548] - Med Check Fall [423484] - Patient has recent falls Normal [facility] Progress Noteon 12-22-2024 Progress Note [facility] [place] [address] [facility] [address] [facility] [address] Visit type: Established Patient Reason for Visit: Follow-up (Med Check ) and Fall (Patient has recent falls ) Assessment / Plan: Farzana was seen today for follow-up and fall. 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 female. HPI patient with history of hypertension, stable heart disease and heart failure with Alzheimer's dementia on gabapentin for chronic back pain and tingling in her legs and feet presents for overall checkup. She has had a good few months. Cerebrally she has been doing well and no change in memory. Her make sure she gets all her meds and she is compliant with taking them. Review of Systems denies recent earache sore throat or cough. No chest pain or shortness of breath. No use of nitro. prefers not to see a neurologist or cardiology. Takes Spiriva for COPD. No purulent phlegm PND orthopnea or edema. No heartburn on Protonix. No dysphagia or loss of weight. Bowels are regular. No melena or blood. No dysuria or incontinence. No change in quality of her upper thoracic spine pain. Gabapentin well-tolerated. Allergies Allergen Reactions Codeine Other reaction(s): GI Upset Per patient - unknown reaction Other reaction(s): Blisters Current Outpatient Medications on File Prior to Visit Medication Sig Dispense Refill acetaminophen (Tylenol) 325 MG tablet Take 650 mg by mouth. aspirin (Aspirin Low Dose) 81 MG EC tablet Take 1 tablet (81 mg) by mouth every morning. 90 tablet 3 atorvastatin (Lipitor) 80 MG tablet Take 1 tablet (80 mg) by mouth Nightly. 90 tablet 1 Calcium Carb-Cholecalciferol (Oyster Shell Calcium w/D) 500-5 MG-MCG tablet Take 2 tablets by mouth daily. 180 tablet 1 Calcium Carbonate-Vitamin D (calcium-vitamin D) 500-200 MG-UNIT tablet TAKE 2 TABLETS BY MOUTH EVERY MORNING (BEFORE BREAKFAST) clopidogrel (Plavix) 75 MG tablet TAKE ONE TABLET AT 5PM 90 tablet 1 cyanocobalamin (Vitamin B-12) 1000 MCG tablet Take 1 tablet (1,000 mcg) by mouth daily. 90 tablet 1 donepezil (Aricept) 5 MG tablet Take 1 tablet (5 mg) by mouth Nightly. 90 tablet 1 ergocalciferol (Vitamin D2) 1.25 MG (81218 UT) capsule TAKE 1 CAPSULE BY MOUTH EVERY WEEK ON FRIDAY 5 capsule 11 fluticasone (Flovent) 220 MCG/ACT inhaler Decrease to one puff BID 12 g 5 gabapentin (Neurontin) 300 MG capsule TAKE 1 CAPSULE BY MOUTH TWICE DAILY 62 capsule 2 isosorbide mononitrate ER (Imdur) 60 MG 24 hr tablet Take 1 tablet (60 mg) by mouth every morning. 90 tablet 1 levothyroxine (Synthroid, Levoxyl) 50 MCG tablet Take 1 tablet (50 mcg) by mouth every morning for 180 doses. 90 tablet 1 losartan (Cozaar) 25 MG tablet Take 1 tablet (25 mg) by mouth daily. 90 tablet 1 metoprolol tartrate (Lopressor) 50 MG tablet Take 1 tablet (50 mg) by mouth 2 times daily. 180 tablet 1 mirtazapine (Remeron) 7.5 MG tablet Decrease to 7.5 mg at HS 90 tablet 1 omega-3 (Fish Oil) 1000 MG capsule TAKE 3 CAPSULES BY MOUTH EVERY MORNING 93 capsule 11 pantoprazole (ProtoNix) 40 MG EC tablet CHANGE TO ONE EACH EVENING BEFORE BEDTIME 90 tablet 1 sucralfate (Carafate) 1 g tablet Take 1 tablet (1 g) by mouth in the morning and 1 tablet (1 g) in the evening. Take before meals. 180 tablet 1 tiotropium (Spiriva) [address] 1 capsule (18 mcg) into inhaler and inhale in the morning. 30 capsule 5 No current facility-administered medications on file prior to visit. 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 [facility] 36on 11-30-2024 36 Recent Visits Date Type Provider Dept 09/22/24 Office Visit Wayne Potter [place], DO [facility] 05/26/24 Office Visit Wayne Potter Michellrosina, DO [facility] 02/04/24 Office Visit Wayne Potter Michellrosina, DO [facility] Showing recent visits within past 365 days and meeting all other requirements Future Appointments Date Type Provider Dept 12/22/24 Appointment Wayne Conde, DO [facility] Showing future appointments within next 90 days and meeting all other requirements Requested Prescriptions Pending Prescriptions Disp Refills gabapentin (Neurontin) 300 MG capsule [Pharmacy Med Name: Gabapentin 300 MG Capsule] 62 capsule 11 Sig: TAKE 1 CAPSULE BY MOUTH TWICE DAILY omega-3 (Fish Oil) 1000 MG capsule [Pharmacy Med Name: Fish Oil 1000 MG Capsule] 93 capsule 11 Sig: TAKE 3 CAPSULES BY MOUTH EVERY MORNING Provider: Wayne Conde DO Verified pharmacy: yes Verified day(s) supplied: yes Verified refill(s) needed (previous prescription showing no refills in chart): Yes Have you received any controlled medications from any other provider? N/A Overdue for visit: No If yes - patient scheduled? Yes Most recent labs completed in chart? N/A [facility] 36on 09-23-2024 36 Recent Visits Date Type Provider Dept 09/22/24 Office Visit Wayne Potter [place], DO [facility] 05/26/24 Office Visit Wayne Potter [place], DO [facility] 02/04/24 Office Visit Wayne Potter [place], DO [facility] 10/23/23 Office Visit Wayne Potter Elton DO [facility] Showing recent visits within past 365 days and meeting all other requirements Future Appointments Date Type Provider Dept 12/22/24 Appointment Wayne Abbey DO [facility] Showing future appointments within next 90 days and meeting all other requirements Requested Prescriptions Pending Prescriptions Disp Refills ergocalciferol (Vitamin D2) 1.25 MG (25363 UT) capsule [Pharmacy Med Name: Vitamin D (Ergocalciferol) 1.25 MG (12696 UT) Capsule] 5 capsule 11 Sig: TAKE 1 CAPSULE BY MOUTH EVERY WEEK ON FRIDAY Provider: Wayne Conde DO Verified pharmacy: yes Verified day(s) supplied: yes Verified refill(s) needed (previous prescription showing no refills in chart): Yes Have you received any controlled medications from any other provider? N/A Overdue for visit: No If yes - patient scheduled? N/A Most recent labs completed in chart? No None [facility] 37on 09-22-2024 37 Obtain RSV and COVID vaccines at your pharmacy [facility] Office Visiton 09-22-2024 Follow-up visit [id number] PamellaToma rodgers naecamilo 1940 F Date Provider Department Center 09/22/2024 [id number] CONDE [facility] Family History Problem Relation Age of Onset Cancer Mother Comments: age 60 ? met bone CA, Heart disease Father Comments: age 70 No Known Problems Sister No Known Problems Sister Diabetes type II Sister COPD Sister Diabetes Sister No Known Problems Sister Comments: Liver disease Brother Comments: age 50 of ETOH abuse No Known Problems Brother Family Status - Relation Status Age at Mother 60 Notes: Bone CA Father 70 Notes: CAD Sister Sister Alive Sister Sister Sister Sister Sister Brother 50 Brother Alive Level of Service:36038 DE OFFICE/OUTPATIENT ESTABLISHED MOD MDM 30 MIN Reason for Visit and Comments: Follow-up [360748] - Med check Flu Vaccine [189] - Patient is agreeable to have flu vaccine in the office [facility] Progress Noteon 09-22-2024 Progress Note [facility] - [address] [facility] [address] Visit type: Established Patient Reason for Visit: Follow-up (Med check) and Flu Vaccine (Patient is agreeable to have flu vaccine in the office ) Assessment / Plan: Farzana was seen today for follow-up and flu vaccine. 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, unspecified vessel or lesion type Comments: Stable, continue Plavix and aspirin Chronic bronchitis, unspecified chronic bronchitis type (HCC) Chronic systolic (congestive) heart failure (HCC) Compression fracture of thoracic vertebra, unspecified thoracic vertebral level, sequela Comments: Stable, continue gabapentin Hypercholesterolemia Comments: Stable, continue Lipitor Orders: - Lipid panel; Future - Lipid panel Acquired hypothyroidism Other orders - Flu vaccine (FLUAD), trivalent, adjuvanted, preservative-free (ages 65+) - atorvastatin (Lipitor) 80 MG tablet; Take 1 tablet (80 mg) by mouth Nightly. - donepezil (Aricept) 5 MG tablet; Take 1 tablet (5 mg) by mouth Nightly. - fluticasone (Flovent) 220 MCG/ACT inhaler; Decrease to one puff BID - gabapentin (Neurontin) 300 MG capsule; TAKE 1 CAPSULE BY MOUTH TWICE DAILY - isosorbide mononitrate ER (Imdur) 60 MG 24 hr tablet; Take 1 tablet (60 mg) by mouth every morning. - levothyroxine (Synthroid, Levoxyl) 50 MCG tablet; Take 1 tablet (50 mcg) by mouth every morning for 180 doses. - losartan (Cozaar) 25 MG tablet; Take 1 tablet (25 mg) by mouth daily. - metoprolol tartrate (Lopressor) 50 MG tablet; Take 1 tablet (50 mg) by mouth 2 times daily. - mirtazapine (Remeron) 7.5 MG tablet; Decrease to 7.5 mg at HS - pantoprazole (ProtoNix) 40 MG EC tablet; CHANGE TO ONE EACH EVENING BEFORE BEDTIME - tiotropium (Spiriva) 18 MCG inhalation capsule; Place 1 capsule (18 mcg) into inhaler and inhale in the morning. - Calcium Carb-Cholecalciferol (Oyster Shell Calcium w/D) 500-5 MG-MCG tablet; Take 2 tablets by mouth daily. - clopidogrel (Plavix) 75 MG tablet; TAKE ONE TABLET AT 5PM - cyanocobalamin (Vitamin B-12) 1000 MCG tablet; Take 1 tablet (1,000 mcg) by mouth daily. - omega-3 (Fish Oil) 1000 MG capsule; TAKE 3 CAPSULES BY MOUTH EVERY MORNING - sucralfate (Carafate) 1 g tablet; Take 1 tablet (1 g) by mouth in the morning and 1 tablet (1 g) in the evening. Take before meals. Subjective: Patient ID: Farzana Herron is a 83 y.o. female. HPI hypertensive patient with history of coronary disease, LV dysfunction, chronic thoracic spine pain due to osteoporotic compression fracture and mild Alzheimer's disease on Aricept presents for checkup. She presents with her is very supportive and make sure she gets all her meds. Presently she feels well on gabapentin without change in severity of pain no recent falls or leg weakness. Review of Systems would like to know the benefits of COVID vaccines. Denies recent earache sore throat or cough or chest pain. No use of nitro. No change in exertional dyspnea. She denies PND orthopnea claudication or edema. History of left ventricular ejection fraction of 40% this past December. No heartburn or dysphagia. No emesis or choking. No early satiety. Bowels are unchanged. They are regular without melena or blood. No dysuria or incontinence. Pain is in the mid thoracic spine that radiates to the lower back. No sciatica or falls. Allergies Allergen Reactions ? Codeine Other reaction(s): GI Upset Per patient - unknown reaction Other reaction(s): Blisters Current Outpatient Medications on File Prior to Visit Medication Sig Dispense Refill ? acetaminophen (Tylenol) 325 MG tablet Take 650 mg by mouth. ? aspirin (Aspirin Low Dose) 81 MG EC tablet Take 1 tablet (81 mg) by mouth every morning. 90 tablet 3 ? Calcium Carbonate-Vitamin D (calcium-vitamin D) 500-200 MG-UNIT tablet TAKE 2 TABLETS BY MOUTH EVERY MORNING (BEFORE BREAKFAST) ? ergocalciferol (Vitamin D2) 1.25 MG (08124 UT) capsule TAKE 1 CAPSULE BY MOUTH ONE TIME PER WEEK 12 capsule 3 ? guaiFENesin (Mucinex) 600 MG 12 hr tablet Take 2 tablets (1,200 mg) by mouth 2 times daily. 120 tablet 5 ? [DISCONTINUED] atorvastatin (Lipitor) 80 MG tablet Take 1 tablet (80 mg) by mouth Nightly. 90 tablet 1 ? [DISCONTINUED] Calcium Carb-Cholecalciferol (Oyster Shell Calcium w/D) 500-5 MG-MCG tablet Take 2 tablets by mouth daily. 180 tablet 1 ? [DISCONTINUED] clopidogrel (Plavix) 75 MG tablet TAKE ONE TABLET AT 5PM 90 tablet 1 ? [DISCONTINUED] cyanocobalamin (Vitamin B-12) (more content not included)... [facility] 36on 08-26-2024 36 RX loaded Next ov 09/22/24 [facility] 36 Medication name: Spiriva HandiHaler 18 MCG inhalation capsule (Discontinued) Please send to [facility] pharmacy list Medication dosage: 18 mcg (Micrograms) Monthly quantity needed: 30 How many day supply requestin refills Medication route: inhalation (inhaler) Medication administration time(s): daily If taking medication PRN, reason for taking medication: N/A If this is a controlled substance do you receive this or any other controlled medication from any other doctor or facility: N/A Ordering provider: Dr Conde Date of last office visit: 05/26/24 Date of next office visit: 09/22/24 Date of last refill: (see medication tab): 07/18/23 Updated/Validated preferred pharmacy: Yes Patient instructed to contact the pharmacy prior to picking up the medication: Yes [place] [id number] 07-28-2024 36 Recent Visits Date Type Provider Dept 05/26/24 Office Visit Wayne Conde DO [facility] 02/04[facility]24 [facility] Visit Wayne Conde DO [facility] Showing recent visits within past 365 days and meeting all other requirements Future Appointments Date Type Provider Dept 09/22/24 Appointment Wayne Conde DO [facility] Showing future appointments within next 90 days and meeting all other requirements Requested Prescriptions Pending Prescriptions Disp Refills sucralfate (Carafate) 1 g tablet [Pharmacy Med Name: Sucralfate 1 GM Tablet] 180 tablet 3 Sig: Take 1 tablet (1 g) by mouth in the morning and 1 tablet (1 g) in the evening. Take before meals. gabapentin (Neurontin) 300 MG capsule [Pharmacy Med Name: Gabapentin 300 MG Capsule] 180 capsule 0 Sig: TAKE 1 CAPSULE BY MOUTH TWICE DAILY omega-3 (Fish Oil) 1000 MG capsule [Pharmacy Med Name: Fish Oil 1000 MG Capsule] 90 capsule 3 Sig: TAKE 3 CAPSULES BY MOUTH EVERY MORNING Provider: Wayne Conde DO Verified pharmacy: yes Verified day(s) supplied: yes Verified refill(s) needed (previous prescription showing no refills in chart): Yes Have you received any controlled medications from any other provider? No Overdue for visit: No If yes - patient scheduled? Yes Most recent labs completed in chart? N/A Cholesterol:No results found for: CHOLESTEROLT, HDLCHOLESTER, TRIGLYCERIDE, LDLCHOLESTER, CHOLHDLCRATI, NONHDLCHOLES Normal [facility] 36on 07-12-2024 36 RX loaded Next ov 09/22/24 [facility] 36 Medication name: jackie iFENesin (Mucinex) 600 MG 12 hr tablet Medication dosage: 600 mg (Miligrams Monthly quantity needed: 60 How many day supply requestin days Medication route: oral (PO) Medication administration time(s): 2 times a day (BID) If taking medication PRN, reason for taking medication: N/A If this is a controlled substance do you receive this or any other controlled medication from any other doctor or facility: N/A Ordering provider: Elton Date of last office visit: 05/26/24 Date of next office visit: 09/22/24 Date of last refill: (see medication tab): 02/18/24 Updated/Validated preferred pharmacy: Yes Patient instructed to contact the pharmacy prior to picking up the medication: Yes Normal [facility] Basic metabolic 1998 panelon 01-21-2024 Anion gap [Moles/Vol] 3 mmol/L 3 - 13 mmol/L [facility] Calcium [Mass/Vol] 8.1 mg/dL Low 8.4 - 10. 4 mg/dL [facility] Chloride [Moles/Vol] 105 mmol/L 98 - 10 7 mmol/L [facility] CO2 [Moles/Vol] 27 mmol/L 22 - 30 mmol/L [facility] Creatinine [Mass/Vol] 0.96 mg/dL 0.52 - 1.04 mg/dL [facility] GFR/1.73 sq M.predicted MDRD (S/P/Bld) [Vol rate/Area] 58.5 mL/min/{1.73_m2} Low - PINF [facility] Comment on above: Calculation based on the Chronic Kidney Disease Epidemiology Collaboration (CKD-EPI) equation refit without adjustment for race Glucose [Mass/Vol] 85 mg/dL 70 - 100 mg/dL [facility] Interpretation and review of laboratory results Abnormal [facility] Potassium [Moles/Vol] 4.1 mmol/L 3.5 - 5.1 mmol/L [facility] Sodium [Moles/Vol] 135 mmol/L 135 - 145 mmol/L [facility] Urea nitrogen [Mass/Vol] 25 mg/dL High 7 - 17 mg/dL [facility] CBC panel Auto (Bld)on 01-21 Erythrocyte distribution width (RBC) [Ratio] 14.9 % 11.5 - 15.0 % [facility] Hematocrit (Bld) [Volume fraction] 32.4 % Low 35.0 - 47.0 % [facility] Hemoglobin (Bld) [Mass/Vol] 10.3 g/dL Low 11.7 - 16.0 g/dL [facility] Interpretation and review of laboratory results Abnormal [facility] MCH (RBC) [Entitic mass] 27.2 pg 26.0 - 34.0 pg [facility] MCHC (RBC) [Mass/Vol] 31.8 % 30.5 - 36.0 % [facility] MCV (RBC) [Entitic vol] 85.5 fL 77.0 - 99.0 fL [facility] Platelet mean volume (Bld) [Entitic vol] 11.6 fL 9.0 - 12.7 fL [facility] Platelets (Bld) [#/Vol] 233 10*3/uL 140 - 440 10*3/uL [facility] RBC (Bld) [#/Vol] 3.79 10*6/uL Low 3.80 - 5.20 10*6/uL [facility] WBC (Bld) [#/Vol] 4.5 10*3/uL 3.6 - 10.7 10*3/uL [facility] XR Abdomen Single viewon Nonspecific bowel gas pattern, consider constipation. Report Dictated on Electronically Signed By: Annette Walsh MD Electronically Signed Date/Time: 01/21/2024 12:21 PM [facility] [email or web address] SYSTEM Patient Name: FARZANA KELLEY : 1940 Exam Date/Time: 01/21/2024 10:44 Procedure: XR ABDOMEN 1 VIEW Ordering Provider: SALEEM ANGELA Reason For Exam: CONSTIPATION INDICATION: 83-year-old female inpatient; constipation. VIEWS: Portable AP supine-one image COMPARISON: 01/18/2024 FINDINGS: An IVC filter is present. Cholecystectomy clips are present. The bowel gas pattern is nonspecific with a few air-filled loops of small bowel and moderate fecal retention. Multilevel endplate osteophytes are present along the thoracolumbar spine. [facility] Annette Walsh MD - 01/21/2024 Patient Name: FARZANA HERRON : 1940 Exam Date/Time: 01/21/2024 10:44 Procedure: XR ABDOMEN 1 VIEW Ordering Provider: SALEEM ANGELA Reason For Exam: CONSTIPATION INDICATION: 83-year-old female inpatient; constipation. VIEWS: Portable AP supine-one image COMPARISON: 01/18/2024 FINDINGS: An IVC filter is present. Cholecystectomy clips are present. The bowel gas pattern is nonspecific with a few air-filled loops of small bowel and moderate fecal retention. Multilevel endplate osteophytes are present along the thoracolumbar spine. IMPRESSION: Nonspecific bowel gas pattern, consider constipation. Report Dictated on Electronically Signed By: Annette Walsh MD Electronically Signed Date/Time: 01/21/2024 12:21 PM EST [facility] Radiology Study observation (narrative) [employer] XR Abdomen Single viewOrdere d By: Annette Walsh on 01-21-2024 [employer] Work Phone: 25-hydroxyvitamin D3 [Mass/V ol]on 01-20-2024 Interpretation and review of laboratory results Normal [facility] Therapy is based on measurement of Total 25-OHD with the following classification levels: Less than 20 ng/mL: Indicative of Vit D deficiency 20-30 ng/mL: Suggests Vit D insufficiency Optimal: Greater than or equal to 30 ng/mL Test performed by [employer] Competitive Immunoassay, measuring Total Vitamin D, not individual fractions. [facility] Laboratory - Chemistry and C hemistry - challengeon 01-20-2024 25-hydroxyvitamin D3 [Mass/Vol] 37 ng/mL 30 - 100 ng/mL [facility] Basic metabolic 1998 panelon 01-19-2024 Anion gap [Moles/Vol] 7 mmol/L 3 - 13 mmol/L [facility] Calcium [Mass/Vol] 8.6 mg/dL 8.4 - 10. 4 mg/dL [facility] Chloride [Moles/Vol] 102 mmol/L 98 - 10 7 mmol/L [facility] CO2 [Moles/Vol] 27 mmol/L 22 - 30 mmol/L [facility] Creatinine [Mass/Vol] 0.79 mg/dL 0.52 - 1.04 mg/dL [facility] GFR/1.73 sq M.predicted MDRD (S/P/Bld) [Vol rate/Area] 73.9 mL/min/{1.73_m2} - PINF [facility] Comment on above: Calculation based on the Chronic Kidney Disease Epidemiology Collaboration (CKD-EPI) equation refit without adjustment for race Glucose [Mass/Vol] 109 mg/dL High 70 - 100 mg/dL [facility] Interpretation and review of laboratory results Abnormal [facility] Potassium [Moles/Vol] 3.6 mmol/L 3.5 - 5.1 mmol/L [facility] Sodium [Moles/Vol] 136 mmol/L 135 - 145 mmol/L [facility] Urea nitrogen [Mass/Vol] 9 mg/dL 7 - 17 mg/dL [facility] CBC W Auto Differential pane l (Bld)Ordered By: Mikel Corcoran on 01-19-2024 Basophils (Bld) [#/Vol] 0.0 10*3/uL 0.0 - 0.2 10*3/uL [facility] Basophils/100 WBC (Bld) 0.5 % 0.0 - 2.0 % [facility] Eosinophils (Bld) [#/Vol] 0.1 10*3/uL 0.0 - 0.5 10*3/uL [facility] Eosinophils/100 WBC (Bld) 2.2 % 1.0 - 6.0 % [facility] Erythrocyte distribution width (RBC) [Ratio] 14.4 % 11.5 - 14.5 % [facility] Hematocrit (Bld) [Volume fraction] 34.9 % Low 35.0 - 47.0 % [facility] Hemoglobin (Bld) [Mass/Vol] 11.3 g/dL Low 11.7 - 16.0 g/dL [facility] Interpretation and review of laboratory results Abnormal [facility] Lymphocytes (Bld) [#/Vol] 1.2 10*3/uL 1.0 - 4.3 10*3/uL [facility] Lymphocytes/100 WBC (Bld) 19.5 % Low 20.0 - 40.0 % [facility] MCH (RBC) [Entitic mass] 27.5 pg 26.0 - 34.0 pg [facility] MCHC (RBC) [Mass/Vol] 32.4 % 32.0 - 36.0 % [facility] MCV (RBC) [Entitic vol] 85.1 fL 80.0 - 98.0 fL [facility] Monocytes (Bld) [#/Vol] 0.7 10*3/uL 0.0 - 0.8 10*3/uL [facility] Monocytes/100 WBC (Bld) 12.6 % High 2.0 - 10.0 % [facility] Neutrophils (Bld) [#/Vol] 3.9 10*3/uL 1.8 - 7.0 10*3/uL [facility] Neutrophils/100 WBC (Bld) 65.2 % 40.0 - 80.0 % [facility] Nucleated RBC/100 WBC (Bld) [Ratio] 0.0 % [facility] Platelet mean volume (Bld) [Entitic vol] 9.4 fL 7.4 - 12.4 fL [facility] Platelets (Bld) [#/Vol] 278 10*3/uL 140 - 440 10*3/uL [facility] RBC (Bld) [#/Vol] 4.10 10*6/uL 3.8 - 5.20 10*6/uL [facility] WBC (Bld) [#/Vol] 5.9 10*3/uL 3.6 - 10.7 10*3/uL [facility] Cobalamin (Vitamin B12) [Mas s/Vol]on 01-19-2024 Interpretation and review of laboratory results Normal [facility] Laboratory - Chemistry and C hemistry - challengeon 01-19-2024 Cobalamin (Vitamin B12) [Mass/Vol] 278 pg/mL 239 - 931 pg/mL [facility] No Panel InformationOrdered By: Kannan Barry on 01-19-2024 P Heppner 18 degrees [employer] Work Phone: DE Interval 176 ms [employer] Work Phone: QRS Heppner -24 degrees [employer] Work Phone: QRSD Interval 80 ms [employer] Phone: QT Interval 366 ms [employer] Work Phone: QTC Interval 433 ms [employer] Work Phone: T Wave [place]ppner 37 degrees [employer] Work Phone: [employer] Work Phone: No Panel Informationon 01-19 Sinus rhythm Inferior infarct, old Compared to ECG 01/16/2024 08:41:36 No significant changes Electronically Signed On 01-19-2024 10:00:01 EST by Kannan Andino M D - 01/19/2024 IMPRESSION: Sinus rhythm Inferior infarct, old Compared to ECG 01/16/2024 08:41:36 No significant changes Electronically Signed On 01-19-2024 10:00:01 EST by Kannan Barry [employer] Vital signsOrdered By: Arcadio Barry on 01-19-2024 Heart rate 84 /min bpm [employer] Work Phone: Laboratory - Chemistry and C hemistry - challengeon 01-18-2024 Glucose [Mass/Vol] 88 mg/dL 70 - 100 mg/dL [employer] TSH Qn 1.283 m[IU]/L [employer] No Panel Informationon 01-18 Interpretation and review of laboratory results Normal [facility] [employer] Performed by: [facility], [address] [place] [id number] CLIA ID: [id number] [facility] [employer] Radiology Study observation (narrative) [facility] [employer] TSH Qnon 01-18-2024 Interpretation and review of laboratory results Normal [facility] [employer] XR Abdomen Single viewon Impression: Suspect mild ileus. Report Dictated on Electronically Signed By: Taylor Reed MD Electronically Signed Date/Time: 01/18/2024 10:39 AM [facility] EMERGENC[facility]PART[facility] RADIOLOGY SYSTEM Patient Name: FARZANA KELLEY : 1940 Exam Date/Time: 01/18/2024 10:31 Procedure: XR ABDOMEN 1 VIEW Ordering Provider: CURRY LOUANN Reason For Exam: CONSTIPATION Examination: Abdomen 1 view Indication: CONSTIPATION Findings: Air-filled mildly distended bowel are present. There is also some bowel gas in the distribution the colon. IVC filter present. Small cluster of surgical clips in the right upper abdomen are most suggestive of prior cholecystectomy. There are also a few small calcifications in the right upper abdomen. Small osteophytes of the spine are present at multiple levels with mild scoliosis. [facility] Taylor Reed MD - 01/18/2024 Patient Name: FARZANA HERRON : 1940 Exam Date/Time: 01/18/2024 10:31 Procedure: XR ABDOMEN 1 VIEW Ordering Provider: CURRY LOUANN Reason For Exam: CONSTIPATION Examination: Abdomen 1 view Indication: CONSTIPATION Findings: Air-filled mildly distended bowel are present. There is also some bowel gas in the distribution the colon. IVC filter present. Small cluster of surgical clips in the right upper abdomen are most suggestive of prior cholecystectomy. There are also a few small calcifications in the right upper abdomen. Small osteophytes of the spine are present at multiple levels with mild scoliosis. IMPRESSION: Impression: Suspect mild ileus. Report Dictated on Electronically Signed By: Taylor Reed MD Electronically Signed Date/Time: 01/18/2024 10:39 AM EST [facility] [employer] Radiology Study observation (narrative) [employer] XR Abdomen Single viewOrdere d By: Taylor Reed on 01-18-2024 [employer] Work Phone: Basic metabolic 1998 panelon 01-17-2024 Anion gap [Moles/Vol] 6 mmol/L 3 - 13 mmol/L [facility] Calcium [Mass/Vol] 8.7 mg/dL 8.4 - 10. 4 mg/dL [facility] Chloride [Moles/Vol] 106 mmol/L 98 - 10 7 mmol/L [facility] CO2 [Moles/Vol] 28 mmol/L 22 - 30 mmol/L [facility] Creatinine [Mass/Vol] 0.90 mg/dL 0.52 - 1.04 mg/dL [facility] GFR/1.73 sq M.predicted MDRD (S/P/Bld) [Vol rate/Area] 63.2 mL/min/{1.73_m2} - PINF [facility] Comment on above: Calculation based on the Chronic Kidney Disease Epidemiology Collaboration (CKD-EPI) equation refit without adjustment for race Glucose [Mass/Vol] 88 mg/dL 70 - 100 mg/dL [facility] Interpretation and review of laboratory results Normal [facility] Potassium [Moles/Vol] 3.8 mmol/L 3.5 - 5.1 mmol/L [facility] Sodium [Moles/Vol] 139 mmol/L 135 - 145 mmol/L [facility] Urea nitrogen [Mass/Vol] 14 mg/dL 7 - 17 mg/dL [facility] CBC W Auto Differential pane l (Bld)Ordered By: Kurtis Anderson on 01-17-2024 Basophils (Bld) [#/Vol] 0.1 10*3/uL 0.0 - 0.2 10*3/uL [facility] Basophils/100 WBC (Bld) 1.0 % 0.0 - 2.0 % [facility] Eosinophils (Bld) [#/Vol] 0.1 10*3/uL 0.0 - 0.5 10*3/uL [facility] Eosinophils/100 WBC (Bld) 1.7 % 1.0 - 6.0 % [facility] Erythrocyte distribution width (RBC) [Ratio] 14.7 % High 11.5 - 14.5 % [facility] Hematocrit (Bld) [Volume fraction] 32.5 % Low 35.0 - 47.0 % [facility] Hemoglobin (Bld) [Mass/Vol] 10.8 g/dL Low 11.7 - 16.0 g/dL [facility] Interpretation and review of laboratory results Abnormal [facility] Lymphocytes (Bld) [#/Vol] 1.4 10*3/uL 1.0 - 4.3 10*3/uL [facility] [employer] Lymphocytes/100 WBC (Bld) 26.2 % 20.0 - 40.0 % [facility] [employer] MCH (RBC) [Entitic mass] 28.0 pg 26.0 - 34.0 pg [facility] MCHC (RBC) [Mass/Vol] 33.4 % 32.0 - 36.0 % [facility] [employer] MCV (RBC) [Entitic vol] 84.0 fL 80.0 - 98.0 fL [facility] Monocytes (Bld) [#/Vol] 0.5 10*3/uL 0.0 - 0.8 10*3/uL [facility] [employer] Monocytes/100 WBC (Bld) 10.6 % High 2.0 - 10.0 % [facility] Neutrophils (Bld) [#/Vol] 3.1 10*3/uL 1.8 - 7.0 10*3/uL [facility] Neutrophils/100 WBC (Bld) 60.5 % 40.0 - 80.0 % [facility] Nucleated RBC/100 WBC (Bld) [Ratio] 0.0 % [facility] [employer] Platelet mean volume (Bld) [Entitic vol] 9.4 fL 7.4 - 12.4 fL [facility] [employer] Platelets (Bld) [#/Vol] 231 10*3/uL 140 - 440 10*3/uL [facility] RBC (Bld) [#/Vol] 3.86 10*6/uL 3.8 - 5.20 10*6/uL [facility] [employer] WBC (Bld) [#/Vol] 5.2 10*3/uL 3.6 - 10.7 10*3/uL [facility] Heart TransthoracicOrdere d By: Miguel A Meza on 01-17-2024 Ao Root Index 1.86 cm/m2 [facility] [employer] Work Phone: Aortic Root 2.9 cm [facility] [employer] Work Phone: Aortic Sinus Valsalva 2.9 cm [facility] Work Phone: Aortic Sinus Valsalva Index 1.86 cm/m2 [facility] [employer] Work Phone: Ascending Aorta 3.1 cm [facility] [employer] Work Phone: [phone] Ascending Aorta Index 1.99 cm/m2 [facility] [employer] Work Phone: E/E' Lateral 10.67 [facility] [employer] Work Phone: [phone] E/E' Ratio (Averaged) 13.33 [facility] [employer] Work Phone: E/E' Septal 16.00 [facility] [employer] Work Phone: EF BP 66 % 55 - 100 % [facility] [employer] Work Phone: Est. RA Pressure 3 mmHg [facility] [employer] Work Phone: Global Longitudinal Strain -17.4 % [facility] Work Phone: Global Longitudinal Strain -18.1 % [facility] Work Phone: Global Longitudinal Strain -17.7 % [facility] [employer] Work Phone: Interpretation and review of laboratory results Abnormal [facility] Work Phone: IVC Diameter 1.6 cm [facility] [employer] Work Phone: LA Diameter 3.0 cm [facility] Work Phone: LA Size Index 1.92 cm/m2 [facility] Phone: LA Volume 2C 32 mL 22 - 52 mL [facility] Phone: LA Volume 4C 29 mL 22 - 52 mL [facility] Work Phone: LA Volume A/L 33 mL [facility] [employer] Work Phone: LA Volume BP 31 mL 22 - 52 mL [facility] Work Phone: LA Volume Index 2C 21 mL/m2 16 - 34 mL/m2 [facility] Work Phone: LA Volume Index 4C 19 mL/m2 16 - 34 mL/m2 [facility] Work Phone: LA Volume Index A/L 21 mL/m2 16 - 34 mL/m2 [facility] Phone: LA Volume Index BP 20 ml/m2 16 - 34 ml/m2 [facility] Work Phone: LA/AO Root Ratio 1.03 [facility] [employer] Work Phone: LV E' Lateral Velocity 6 cm/s [facility] [employer] Work Phone: LV E' Septal Velocity 4 cm/s [facility] [employer] Work Phone: LV EDV A2C 28 mL [facility] [employer] Work Phone: LV EDV A4C 32 mL [facility] [employer] Work Phone: LV EDV BP 31 mL Abnormal 56 - 104 mL [facility] [employer] Work Phone: LV EDV Index A2C 18 mL/m2 [facility] [employer] Work Phone: LV EDV Index A4C 21 mL/m2 [facility] [employer] Work Phone: LV EDV Index BP 20 mL/m2 [facility] [employer] Work Phone: LV Ejection Fraction A2C 68 % [facility] [employer] Work Phone: LV Ejection Fraction A4C 66 % [facility] [employer] Work Phone: LV ESV A2C 9 mL [facility] [employer] Work Phone: LV ESV A4C 11 mL [facility] [employer] Work Phone: LV ESV BP 10 mL Abnormal 19 - 49 mL [facility] [employer] Work Phone: LV ESV Index A2C 6 mL/m2 [facility] [employer] Work Phone: LV ESV Index A4C 7 mL/m2 [facility] [employer] Work Phone: LV ESV Index BP 6 mL/m2 [facility] [employer] Work Phone: LVOT Area 2.8 cm2 [facility] [employer] Work Phone: LVOT Cardiac Output 5.1 liter/mi nu te [facility] [employer] Work Phone: LVOT Diameter 1.9 cm [facility] [employer] Work Phone: LVOT Mean Gradient 2 mmHg [facility] [employer] Work Phone: LVOT Peak Gradient 4 mmHg [facility] [employer] Work Phone: LVOT Peak Velocity 1.0 m/s [facility] [employer] Phone: [phone] LVOT Stroke Volume Index 35.8 mL/m2 [facility] [employer] Phone: [phone] LVOT SV 55.8 ml [facility] [employer] Phone: [phone] LVOT VTI 19.7 cm [facility] [employer] Phone: [phone] MV A Velocity 1.21 m/s [facility] [employer] Phone: [phone] MV E Velocity 0.64 m/s [facility] [employer] Phone: [phone] MV E Wave Deceleration Time 84.0 ms [facility] [employer] Phone: [phone] MV E/A 0.53 [facility] [employer] Phone: [phone] PASP 32 mmHg [facility] [employer] Phone: [phone] RV Free Wall Peak S' 13 cm/s [facility] [employer] Phone: [phone] RVSP 32 mmHg [facility] [employer] Phone: [phone] Sinotubular Junction 2.2 cm [facility] [employer] Phone: [phone] TAPSE 1.7 cm 1.7 cm [facility] [employer] Phone: [phone] TR Max Velocity 2.69 m/s [facility] [employer] Phone: [phone] TR Peak Gradient 29 mmHg [facility] [employer] Phone: [phone] [facility] [employer] Phone: Heart Transthoracicon Left Ventricle: Left ventricle size is normal. Moderately increased wall thickness. Normal left ventricular systolic function. EF by 2D Simpsons Biplane is 66%. Normal wall motion. Indeterminate diastolic function. Right Ventricle: Not well visualized. Right ventricle size is normal. Normal systolic function. TAPSE is normal. Aortic Valve: Trileaflet. Mildly calcified cusps. Mild (1+) regurgitation. Left Atrium: Left atrium size is normal. This can be compared to a study dated November 2016 where a wall motion abnormality was noted and the left ventricular ejection fraction was mildly decreased at 48%. On this study, the wall motion is normal and the left ventricular ejection fraction is normal. On the previous study the mild aortic regurgitation was seen as well. There appears to be a pericardial fat pad present, minor finding. Left Ventricle Left ventricle size is normal. Moderately increased wall thickness. Normal left ventricular systolic function. EF by 2D Simpsons Biplane is 66%. Normal wall motion. Indeterminate diastolic function. Right Ventricle Not well visualized. Right ventricle size is normal. Normal systolic function. TAPSE is normal. Left Atrium Left atrium size is normal. Right Atrium Not well visualized. Right atrium size is normal. IVC/SVC IVC size is normal. IVC diameter is normal and decreases greater than 50% during inspiration; therefore the estimated right atrial pressure is normal (~3 mmHg). Mitral Valve Mildly calcified leaflets. Trace regurgitation. No stenosis noted. Tricuspid Valve Valve structure is normal. Trace regurgitation. Aortic Valve Trileaflet. Mildly calcified cusps. Mild (1+) regurgitation. No stenosis. Pulmonic Valve The pulmonic valve was not well visualized. Ascending Aorta Normal sized aorta. Pericardium No pericardial effusion. Septum No interatrial shunt visualized on color Doppler. Pulmonary Artery Pulmonary hypertension not present. Study Details Image quality: fair. Blood pressure: 145/99 mmHg. Technical qualifiers: Technically difficult study due to patient's body habitus, technically difficult study due to patient's heart rhythm and procedure performed with the patient in a supine position. Patient was aggitated and moving around. No contrast was given. CV CPACS CBC W Auto Differential pane l (Bld)Ordered By: Milly Ho on 01-16-2024 Basophils (Bld) [#/Vol] 0.0 10*3/uL 0.0 - 0.2 10*3/uL [employer] Basophils/100 WBC (Bld) 0.5 % 0.0 - 2.0 % [employer] Eosinophils (Bld) [#/Vol] 0.1 10*3/uL 0.0 - 0.5 10*3/uL [employer] Eosinophils/100 WBC (Bld) 2.2 % 1.0 - 6.0 % [employer] Erythrocyte distribution width (RBC) [Ratio] 14.6 % High 11.5 - 14.5 % [employer] Hematocrit (Bld) [Volume fraction] 37.9 % 35.0 - 47.0 % [employer] Hemoglobin (Bld) [Mass/Vol] 12.3 g/dL 11.7 - 16.0 g/dL [facility] Interpretation and review of laboratory results Abnormal [facility] Lymphocytes (Bld) [#/Vol] 0.9 10*3/uL Low 1.0 - 4.3 10*3/uL [facility] Lymphocytes/100 WBC (Bld) 13.7 % Low 20.0 - 40.0 % [facility] MCH (RBC) [Entitic mass] 27.6 pg 26.0 - 34.0 pg [facility] MCHC (RBC) [Mass/Vol] 32.4 % 32.0 - 36.0 % [facility] MCV (RBC) [Entitic vol] 85.1 fL 80.0 - 98.0 fL [facility] Monocytes (Bld) [#/Vol] 0.5 10*3/uL 0.0 - 0.8 10*3/uL [facility] Monocytes/100 WBC (Bld) 8.6 % 2.0 - 10.0 % [facility] Neutrophils (Bld) [#/Vol] 4.8 10*3/uL 1.8 - 7.0 10*3/uL [facility] Neutrophils/100 WBC (Bld) 75.0 % 40.0 - 80.0 % [facility] Nucleated RBC/100 WBC (Bld) [Ratio] 0.0 % [facility] Platelet mean volume (Bld) [Entitic vol] 9.3 fL 7.4 - 12.4 fL [facility] Platelets (Bld) [#/Vol] 258 10*3/uL 140 - 440 10*3/uL [facility] RBC (Bld) [#/Vol] 4.45 10*6/uL 3.8 - 5.20 10*6/uL [facility] WBC (Bld) [#/Vol] 6.4 10*3/uL 3.6 - 10.7 10*3/uL [facility] CK [Catalytic activity/Vol]o n 01-16-2024 Interpretation and review of laboratory results Normal [facility] COVID-19, Flu A/B, and RSV C omboon 01-16-2024 Interpretation and review of laboratory results Normal [facility] CT Abdomen and Pelvis W cont rast Analisa 01-16-2024 No acute injury with in the abdomen/pelvis. Mild proximal colitis. Colonic and duodenal diverticulosis. Bilateral renal cortical atrophy. Moderate sized sliding hiatal hernia. Report Dictated on Electronically Signed By: Jsesie Pinedo MD Electronically Signed Date/Time: 01/16/2024 10:46 AM [facility] EMERGENCY DEPARTMENT RADIOLOGY SYSTEM Patient Name: FARZANA KELLEY : 1940 [facility]#: [id number] Exam Date/Time: 01/16/2024 10:17 Procedure: CT ABDOMEN PELVIS W CONTRAST Ordering Provider: WASSERMAN GREGORY Reason For Exam: Abdominal pain, acute, nonlocalized CT ABDOMEN AND PELVIS WITH CONTRAST EXAM DATE AND TIME: 01/16/2024 10:17 AM EST INDICATION: 83 years Female with Abdominal pain, acute, nonlocalized Patient with fall. Nausea and vomiting and low back pain. Evaluate lumbar spine for pathology. History of cholecystectomy. COMPARISON: CT abdomen pelvis from 08/13/2018 TECHNIQUE: Transaxial sequence through the abdomen and pelvis with 3 mm reconstruction with dynamic intravenous infusion of intravenous contrast media. Coronal and sagittal reconstructions included. Dose reduction was employed with automated exposure control. Dose reduction was employed with automated exposure control. FINDINGS: Chest base: Dictated separately. Liver: Normal size and contour. No focal lesion. Biliary tree: Status post cholecystectomy. No significant biliary ductal dilatation.. Pancreas: Normal. Spleen: Normal. Adrenals: Normal. Kidneys: Bilateral renal cortical thinning.. No focal lesion. No hydronephrosis. Free fluid: None. Vasculature: Infrarenal IVC filter. 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 Atherosclerotic changes. Bowel: Moderate sized sliding hiatal hernia, containing the proximal stomach. Duodenal diverticulum. No bowel obstruction. Colonic diverticulosis. No evidence of acute diverticulitis. Mild circumferential wall thickening of the cecum and ascending colon. No bowel wall pneumatosis. The appendix is not definitively identified. No secondary CT findings to suggest the presence of acute appendicitis.. Lymphadenopathy: None. Pelvic organs/viscera: 10 mm right ovarian cyst. No follow-up imaging is recommended given the small size of this cyst. Osseous structures: Degenerative change of the spine. Chronic bilateral L5 pars defects. Grade 2 anterolisthesis of L5 on S1. Chronic mild L1 vertebral body compression fracture. No acute fracture.. Soft Tissues: Normal. [facility] Shahida Lindsay Roman D - 01/16/2024 Patient Name: FARZANA HERRON : 1940 [facility]#: [id number] Exam Date/Time: 01/16/2024 10:17 Procedure: CT ABDOMEN PELVIS W CONTRAST Ordering Provider: WASSERMAN GREGORY Reason For Exam: Abdominal pain, acute, nonlocalized CT ABDOMEN AND PELVIS WITH CONTRAST EXAM DATE AND TIME: 01/16/2024 10:17 AM EST INDICATION: 83 years Female with Abdominal pain, acute, nonlocalized Patient with fall. Nausea and vomiting and low back pain. Evaluate lumbar spine for pathology. History of cholecystectomy. COMPARISON: CT abdomen pelvis from 08/13/2018 TECHNIQUE: Transaxial sequence through the abdomen and pelvis with 3 mm reconstruction with dynamic intravenous infusion of intravenous contrast media. Coronal and sagittal reconstructions included. Dose reduction was employed with automated exposure control. Dose reduction was employed with automated exposure control. FINDINGS: Chest base: Dictated separately. Liver: Normal size and contour. No focal lesion. Biliary tree: Status post cholecystectomy. No significant biliary ductal dilatation.. Pancreas: Normal. Spleen: Normal. Adrenals: Normal. Kidneys: Bilateral renal cortical thinning.. No focal lesion. No hydronephrosis. Free fluid: None. Vasculature: Infrarenal IVC filter. 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 Atherosclerotic changes. Bowel: Moderate sized sliding hiatal hernia, containing the proximal stomach. Duodenal diverticulum. No bowel obstruction. Colonic diverticulosis. No evidence of acute diverticulitis. Mild circumferential wall thickening of the cecum and ascending colon. No bowel wall pneumatosis. The appendix is not definitively identified. No secondary CT findings to suggest the presence of acute appendicitis.. Lymphadenopathy: None. Pelvic organs/viscera: 10 mm right ovarian cyst. No follow-up imaging is recommended given the small size of this cyst. Osseous structures: Degenerative change of the spine. Chronic bilateral L5 pars defects. Grade 2 anterolisthesis of L5 on S1. Chronic mild L1 vertebral body compression fracture. No acute fracture.. Soft Tissues: Normal. IMPRESSION: No acute injury within the abdomen/pelvis. Mild proximal colitis. Colonic and duodenal diverticulosis. Bilateral renal cortical atrophy. Moderate sized sliding hiatal hernia. Report Dictated on Electronically Signed By: Jessie Pinedo MD Electronically Signed Date/Time: 01/16/2024 10:46 AM EST [facility] [employer] Radiology Study observation (narrative) [facility] [employer] CT Abdomen and Pelvis W cont rast IVOrdered By: Jessie Pinedo on 01-16-2024 [employer] Work Phone: CT Cervical spine WO contras ton 01-16-2024 1. No acute cervical spine fracture. 2. Spiculated nodule at the left lung apex measuring 2.1 cm. Refer to concurrent chest CT for further evaluation. 3. Osteopenia. 4. Multilevel degenerative changes of the cervical spine. Report Dictated on Electronically Signed By: Leonel Rubio MD Electronically Signed Date/Time: 01/16/2024 10:30 AM EST [facility] Patient Name: FARZANA KELLEY : 1940 Exam Date/Time: 01/16/2024 10:11 Procedure: CT CERVICAL SPINE WO IV CONTRAST Ordering Provider: WASSERMAN GREGORY Reason For Exam: Neck trauma (Age >= 65y) EXAMINATION: CT CERVICAL SPINE WO IV CONTRAST EXAM DATE AND TIME: 01/16/2024 10:11 AM EST INDICATION: Pain, trauma COMPARISON: None available. TECHNIQUE: CT imaging of the cervical spine was obtained without contrast. Dose reduction was employed with automated exposure control. FINDINGS: There is normal cervical lordosis. Trace retrolisthesis at C3-C4 and C5-C6 and trace anterolisthesis at C4-C5. Vertebral body heights are maintained. No acute fracture. Craniocervical junction is normal in appearance. Atlantodental distance is not widened. No prevertebral soft tissue swelling. Degenerative changes at the atlantodental interval are normal. Multilevel degenerative endplate changes present throughout the cervical spine, most severely at C5-C6 and C6-C7 with loss of disc height. No high-grade osseous encroachment of the spinal canal. There are varying degrees of uncovertebral and facet hypertrophy causing varying degrees of foraminal narrowing. Diffuse osteopenia. Atherosclerotic calcification at the bilateral carotid bifurcations. Spiculated nodule at the left lung apex measuring 2.1 cm. Refer to concurrent chest CT for further evaluation. [facility] Leonel Rubio MD - 01/16/2024 Patient Name: FARZANA HERRON : 1940 [facility]#: [id number] Exam Date/Time: 01/16/2024 10:11 Procedure: CT CERVICAL SPINE WO IV CONTRAST Ordering Provider: WASSERMAN GREGORY Reason For Exam: Neck trauma (Age >= 65y) EXAMINATION: CT CERVICAL SPINE WO IV CONTRAST EXAM DATE AND TIME: 01/16/2024 10:11 AM EST INDICATION: Pain, trauma COMPARISON: None available. TECHNIQUE: CT imaging of the cervical spine was obtained without contrast. Dose reduction was employed with automated exposure control. FINDINGS: There is normal cervical lordosis. Trace retrolisthesis at C3-C4 and C5-C6 and trace anterolisthesis at C4-C5. Vertebral body heights are maintained. No acute fracture. Craniocervical junction is normal in appearance. Atlantodental distance is not widened. No prevertebral soft tissue swelling. Degenerative changes at the atlantodental interval are normal. Multilevel degenerative endplate changes present throughout the cervical spine, most severely at C5-C6 and C6-C7 with loss of disc height. No high-grade osseous encroachment of the spinal canal. There are varying degrees of uncovertebral and facet hypertrophy causing varying degrees of foraminal narrowing. Diffuse osteopenia. Atherosclerotic calcification at the bilateral carotid bifurcations. Spiculated nodule at the left lung apex measuring 2.1 cm. Refer to concurrent chest CT for further evaluation. IMPRESSION: 1. No acute cervical spine fracture. 2. Spiculated nodule at the left lung apex measuring 2.1 cm. Refer to concurrent chest CT for further evaluation. 3. Osteopenia. 4. Multilevel degenerative changes of the cervical spine. Report Dictated on Electronically Signed By: Leonel Rubio MD Electronically Signed Date/Time: 01/16/2024 10:30 AM EST [employer] [facility] CT Chest WO contraston 01-16 Patient Name: FARZANA KELLEY : 1940 Exam Date/Time: 01/16/2024 10:25 Procedure: CT CHEST WO IV CONTRAST Ordering Provider: WASSERMAN GREGORY Reason For Exam: Lung nodule, > 8mm Exam Type: CT of the CHEST EXAM DATE & TIME: 01/16/2024 10:25 AM EST INDICATION: Lung nodule ADDITIONAL INFORMATION: none COMPARISON: none TECHNIQUE: Chest: without intravenous contrast Residual intravenous contrast is present from the CT abdomen pelvis performed nine minutes prior to this examination. Dose reduction was employed with automated exposure control. FINDINGS: LUNG AND LARGE AIRWAYS: Spiculated 2.5 x 1.8 cm nodule at the left lung apex. Additional 0.5 cm nodule at the left lung base (series 5, image 195) as well as a 0.4 cm nodule within the peripheral left lower lobe (series 5, image 175). No consolidation. Subpleural fibrotic changes at the lung bases. Mild central lobular emphysema at the lung apices. PLEURA: within normal limits. VESSELS: Atherosclerotic changes in the aorta and coronary arteries. HEART: normal size. No pericardial effusion. MEDIASTINUM AND TALA: Moderate hiatal hernia. CHEST WALL AND LOWER NECK: within normal limits. UPPER ABDOMEN: Refer to concurrent CT of the abdomen pelvis for further evaluation. BONES: Mild age indeterminate compression fractures. Plate of L1. Multilevel degenerative changes of the imaged spine. [facility] Leonel Rubio MD - 01/16/2024 Patient Name: FARZANA HERRON : 1940 Exam Date/Time: 01/16/2024 10:25 Procedure: CT CHEST WO IV CONTRAST Ordering Provider: WASSERMAN GREGORY Reason For Exam: Lung nodule, > 8mm Exam Type: CT of the CHEST EXAM DATE & TIME: 01/16/2024 10:25 AM EST INDICATION: Lung nodule ADDITIONAL INFORMATION: none COMPARISON: none TECHNIQUE: Chest: without intravenous contrast Residual intravenous contrast is present from the CT abdomen pelvis performed nine minutes prior to this examination. Dose reduction was employed with automated exposure control. FINDINGS: LUNG AND LARGE AIRWAYS: Spiculated 2.5 x 1.8 cm nodule at the left lung apex. Additional 0.5 cm nodule at the left lung base (series 5, image 195) as well as a 0.4 cm nodule within the peripheral left lower lobe (series 5, image 175). No consolidation. Subpleural fibrotic changes at the lung bases. Mild central lobular emphysema at the lung apices. PLEURA: within normal limits. VESSELS: Atherosclerotic changes in the aorta and coronary arteries. HEART: normal size. No pericardial effusion. MEDIASTINUM AND TALA: Moderate hiatal hernia. CHEST WALL AND LOWER NECK: within normal limits. UPPER ABDOMEN: Refer to concurrent CT of the abdomen pelvis for further evaluation. BONES: Mild age indeterminate compression fractures. Plate of L1. Multilevel degenerative changes of the imaged spine. IMPRESSION: 1. Spiculated 2.5 x 1.8 cm nodule at the left lung apex. Further evaluation with PET/CT or tissue sampling is recommended. 2. Additional 0.5 cm and 0.4 cm nodules within the left lower lobe 3. Mild emphysema and fibrotic changes. 4. Moderate hiatal hernia. CRITICAL TEST COMMUNICATION: Dr. Wasserman was notified via [employer] Secure Chat today at 10:47 AM. 2017 - UPDATED [employer] GUIDELINES FOR MANAGEMENT OF SMALL PULMONARY NODULES DETECTED ON CT Note: Recommendations do not apply for lung cancer screening, patients with immunosuppression or with known cancer. Dimensions are average of long and short axis rounded to the millimeter SOLITARY NODULE: LOW RISK PATIENT <6mm - No follow up 6-8mm - 6-12 months, then consider 18-24 months >8mm - PET/CT, Bx or followup in 3 months SOLITARY NODULE: HIGH RISK PATIENT <6mm - Optional 6-12 months (suspicious morphology or upper lobe) 6-8mm - 6-12 months, then 18-24 months >8mm - PET/CT, Bx or followup in 3 months MULTIPLE NODULES: LOW RISK PATIENT (Use most suspicious nodule to manage guidelines) All <6mm - No follow up Any >6mm - 3-6 months, then consider 18-24 months MULTIPLE NODULES: HIGH RISK PATIENT (Use most suspicious nodule to manage guidelines) All <6mm - No follow up Any >6mm - 3-6 months, then 18-24 months SUBSOLID NODULE: SINGLE GROUND GLASS OPACITY <6mm - No follow up 6mm or greater - 6-12 months, then every 2 years until 5 years SUBSOLID NODULE: PART SOLID <6mm - No follow up 6mm or greater - 3-6 months, then if solid component <6mm and unchanged every year until 5 years MULTIPLE SUBSOLID NODULES: All <6mm - 3-6 months, then if stable 24 and 48 months 6mm or greater - 3-6 months, subsequent management based upon most suspicious nodule Report Dictated on Electronically Signed By: Leonel Rubio MD Electronically Signed Date/Time: 01/16/2024 10:47 AM EST [facility] CT Head WO contraston 2023 No acute intracranial hemorrhage or mass effect. 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 Report Dictated on Electronically Signed By: Leonel Rubio MD Electronically Signed Date/Time: 01/16/2024 10:27 AM EST [employer] [facility] Name[facility] 1940 [id number] Exam Date/Time: 01/16/2024 10:09 Procedure: CT HEAD WO IV CONTRAST Ordering Provider: WASSERMAN GREGORY Reason For Exam: Head trauma, moderate-severe Exam Type: CT HEAD WO IV CONTRAST Exam Date and Time: 01/16/2024 10:09 AM EST Indication: Pain, trauma Comparison: CT head on 03/03/2018 TECHNIQUE: Noncontrast CT of the head. Dose reduction was employed with automated exposure control. FINDINGS: Prominence of ventricles and cortical sulci is compatible with cerebral volume loss. No extra axial collection. No acute intracranial hemorrhage. Scattered foci of hypoattenuation in the cerebral white matter are nonspecific but most compatible with microangiopathy. No CT evidence of acute large territorial infarct. No mass effect, cerebral edema, or midline shift. Atherosclerotic vascular calcifications visualized at the skull base. Imaged portions of the paranasal sinuses and mastoid air cells are well aerated. No depressed calvarial fracture. Bilateral lens replacements. [facility] [email or web address] [facility] Leonel Rubio MD - 01/16/2024 Patient Name: FARZA[facility]ERR[facility] 1940 [id number] Exam Date/Time: 01/16/2024 10:09 Procedure: CT HEAD WO IV CONTRAST Ordering Provider: WASSERMAN GREGORY Reason For Exam: Head trauma, moderate-severe Exam Type: CT HEAD WO IV CONTRAST Exam Date and Time: 01/16/2024 10:09 AM EST Indication: Pain, trauma Comparison: CT head on 03/03/2018 TECHNIQUE: Noncontrast CT of the head. Dose reduction was employed with automated exposure control. FINDINGS: Prominence of ventricles and cortical sulci is compatible with cerebral volume loss. No extra axial collection. No acute intracranial hemorrhage. Scattered foci of hypoattenuation in the cerebral white matter are nonspecific but most compatible with microangiopathy. No CT evidence of acute large territorial infarct. No mass effect, cerebral edema, or midline shift. Atherosclerotic vascular calcifications visualized at the skull base. Imaged portions of the paranasal sinuses and mastoid air cells are well aerated. No depressed calvarial fracture. Bilateral lens replacements. IMPRESSION: No acute intracranial hemorrhage or mass effect. 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 Report Dictated on Electronically Signed By: Leonel Rubio MD Electronically Signed Date/Time: 01/16/2024 10:27 AM EST [facility] Comprehensive metabolic 1998 panelon 01-16-2024 Albumin [Mass/Vol] 3.8 g/dL 3.5 - 5.0 g/dL [facility] ALP [Catalytic activity/Vol] 117 U/L 38 - 126 U/L [facility] ALT [Catalytic activity/Vol] 16 U/L 0 - 34 U/L [facility] Anion gap [Moles/Vol] 9 mmol/L 3 - 13 mmol/L [facility] AST [Catalytic activity/Vol] 23 U/L 15 - 46 U/L [facility] Bilirubin [Mass/Vol] 0.7 mg/dL 0.2 - 1 .3 mg/dL [facility] Calcium [Mass/Vol] 8.7 mg/dL 8.4 - 10. 4 mg/dL [facility] Chloride [Moles/Vol] 103 mmol/L 98 - 10 7 mmol/L [facility] CO2 [Moles/Vol] 25 mmol/L 22 - 30 mmol/L [facility] Creatinine [Mass/Vol] 0.89 mg/dL 0.52 - 1.04 mg/dL [facility] GFR/1.73 sq M.predicted MDRD (S/P/Bld) [Vol rate/Area] 64.0 mL/min/{1.73_m2} - PINF [facility] Comment on above: Calculation based on the Chronic Kidney Disease Epidemiology Collaboration (CKD-EPI) equation refit without adjustment for race Glucose [Mass/Vol] 134 mg/dL High 70 - 100 mg/dL [facility] Potassium [Moles/Vol] 3.4 mmol/L Low 3.5 - 5.1 mmol/L [facility] Protein [Mass/Vol] 6.5 g/dL 6.3 - 8.2 g/dL [facility] Sodium [Moles/Vol] 137 mmol/L 135 - 145 mmol/L [facility] Urea nitrogen [Mass/Vol] 13 mg/dL 7 - 17 mg/dL [facility] Laboratory - Chemistry and C hemistry - challengeon 01-16-2024 Troponin I.cardiac [Mass/Vol] ng/mL [facility] [place] - 0.034 ng/mL [facility] Troponin I.cardiac [Mass/Vol] ng/mL [facility] - 0.034 ng/mL [facility] Troponin I.cardiac [Mass/Vol] ng/mL [facility] [place] - 0.034 ng/mL [facility] Lactate [Moles/Vol] 1.8 mmol/L 0.7 - 2. 0 mmol/L [facility] CK [Catalytic activity/Vol] 39 U/L 30 - 170 U/L [facility] Lipase [Catalytic activity/Vol] 321 U/L High 23 - 300 U/L [facility] Laboratory - Microbiology an d Antimicrobial susceptibilityon 01-16-2024 FLUAV RNA SARY+probe Ql (Resp) Not detected Not Detected [facility] FLUBV RNA SARY+probe Ql (Resp) Not detected Not Detected [facility] RSV RNA SARY+probe Ql (Resp) Not detected Not Detected [facility] SARS-CoV-2 (COVID-19) RNA SARY+probe Ql (Resp) Not detected Not Detected [facility] SARS-CoV-2 (COVID-19) RNA SARY+probe Ql (Unsp spec) Methodology: real-time, RT-PCR The SARS-CoV-2, Flu A/B, and RSV Combo assay is intended for in vitro diagnostic use under the FDA Emergency Use Authorization (EUA). This test has not been FDA cleared or approved. In compliance with this authorization, please visit www.fda.gov/media/818121/andrez nload or www.fda.gov/media/786545/andrez nload to access the applicable information sheets. [facility] No Panel Informationon 01-16 Radiology Study observation (narrative) [facility] Interpretation and review of laboratory results Normal [facility] Interpretation and review of laboratory results Abnormal [facility] Radiology Study observation (narrative) [facility] P [place] -30 degrees [facility] DE Interval 159 ms [facility] QRS [place] -36 degrees [facility] QRSD Interval 79 ms [facility] QT Interval 392 ms [facility] QTC Interval 453 ms [facility] T Wave [place] 51 degrees [facility] Sinus rhythm Probable left atrial enlargement Inferior infarct, old No acute change compared to first previous EKG. Electronically Signed On 01-16-2024 08:51:37 EST by Don Wasserman CV Don Bella MD - 01/16/2024 IMPRESSION: Sinus rhythm Probable left atrial enlargement Inferior infarct, old No acute change compared to first previous EKG. Electronically Signed On 01-16-2024 08:51:37 EST by Don Wasserman [facility] Troponin I.cardiac [Mass/Vol ]on 01-16-2024 Interpretation and review of laboratory results Normal [facility] Patients with high l evels of Biotin oral intake (ie >5 mg/day) may have falsely decreased Troponin levels. [facility] Interpretation and review of laboratory results Normal [facility] Patients with high l evels of Biotin oral intake (ie >5 mg/day) may have falsely decreased Troponin levels. [facility] Interpretation and review of laboratory results Normal [facility] Patients with high l evels of Biotin oral intake (ie >5 mg/day) may have falsely decreased Troponin levels. [facility] Urinalysis complete panel (U )Ordered By: Brendon Pederson on 01-16-2024 Bacteria LM.HPF (Urine sed) [#/Area] Few Abnormal Negative /HPF [facility] Bilirubin Ql (U) Negative Negative mg/dL [facility] Clarity (U) Clear Clear [facility] Color (U) Colorless Lt. Yellow [facility] Epithelial cells.squamous LM.HPF (Urine sed) [#/Area] 0-2 [facility] Glucose Ql (U) Normal Normal (<70) mg/dL [facility] Hemoglobin Ql (U) Negative Negative mg/dL [facility] Interpretation and review of laboratory results Abnormal [facility] Ketones (U) [Mass/Vol] Negative Negative mg/dL [facility] Leukocyte esterase Test strip Ql (U) 25 Abnormal Negative Salvador/uL [facility] Nitrite Ql (U) Negative Negative [facility] pH (U) 6.5 [pH] 5.0 - 8.0 pH [facility] Protein (U) [Mass/Vol] Negative Negative mg/dL [facility] RBC LM.HPF (Urine sed) [#/Area] 0-2 [facility] Specific gravity (U) [Rel density] 1.021 1.005 - 1.030 [facility] Urobilinogen (U) [Mass/Vol] Normal Normal (0-1) mg/dL [facility] WBC LM.HPF (Urine sed) [#/Area] 3-5 [facility] Vital signson 01-16-2024 Heart rate 80 /min bpm [facility] XR Chest Single viewon 01-16 FINDINGS/IMPRESSION: 1. Lines/Tubes/Devices/Hardware : None. 2. Lungs: Possible nodular airspace opacity at the left lung apex measuring 1.9 cm. Further evaluation with CT of the chest is recommended. No consolidation or pulmonary edema. 3. Pleura: No pneumothorax or large pleural effusions. 4. Heart and mediastinum: Normal cardiomediastinal contours. CRITICAL TEST COMMUNICATION: Dr. Wasserman was notified via [employer] Secure Chat today at 9:37 AM. Report Dictated on Electronically Signed By: Leonel Rubio MD Electronically Signed Date/Time: 01/16/2024 9:37 AM [facility] Patient Name: FARZANA KELLEY : 1940 Exam Date/Time: 01/16/2024 09:35 Procedure: XR CHEST 1 VIEW Ordering Provider: WASSERMAN GREGORY Reason For Exam: syncope EXAM TYPE: RADIOLOGIC EXAMINATION, CHEST, SINGLE VIEW FRONTAL (CXR SINGLE VIEW) EXAM DATE AND TIME: 01/16/2024 9:35 AM EST INDICATION: Syncope COMPARISON: Chest radiograph on 11/04/2019 TECHNIQUE: A single frontal view of the thorax was obtained and reviewed. Special views: None. [facility] Leonel Rubio MD - 01/16/2024 Patient Name: FARZANA HERRON : 1940 Exam Date/Time: 01/16/2024 09:35 Procedure: XR CHEST 1 VIEW Ordering Provider: WASSERMAN GREGORY Reason For Exam: syncope EXAM TYPE: RADIOLOGIC EXAMINATION, CHEST, SINGLE VIEW FRONTAL (CXR SINGLE VIEW) EXAM DATE AND TIME: 01/16/2024 9:35 AM EST INDICATION: Syncope COMPARISON: Chest radiograph on 11/04/2019 TECHNIQUE: A single frontal view of the thorax was obtained and reviewed. Special views: None. IMPRESSION: FINDINGS/IMPRESSION: 1. Lines/Tubes/Devices/Hardware : None. 2. Lungs: Possible nodular airspace opacity at the left lung apex measuring 1.9 cm. Further evaluation with CT of the chest is recommended. No consolidation or pulmonary edema. 3. Pleura: No pneumothorax or large pleural effusions. 4. Heart and mediastinum: Normal cardiomediastinal contours. CRITICAL TEST COMMUNICATION: Dr. Wasserman was notified via [employer] Secure Chat today at 9:37 AM. Report Dictated on Electronically Signed By: Leonel Rubio MD Electronically Signed Date/Time: 01/16/2024 9:37 AM EST [employer] XR Chest Single viewOrdered By: Leonel Rubio on 01-16-2024 [employer] Work Phone: Carotid Duplex Ultrasound Completeon 02-26-2021 VL Carotid Duplex Ultrasound Complete Patient Name: FARZANA HERRON Ultrasound ACCESSION EXAM DATE/TIME PROCEDURE ORDERING PROVIDER [id number] 02/26/2021 15:32 EDT VL Carotid Duplex DO CONDE EUGENE F. Ultrasound Complete CPT code 61604 Reason For Exam ( Carotid Duplex Ultrasound Complete) I77.9 Report ULTRASOUND OF BILATERAL CAROTID SYSTEMS WITH GRAYSCALE AND COLOR FLOW IMAGING AND SPECTRAL WAVEFORM ANALYSIS CLINICAL INDICATION: I77.9 TECHNIQUE: Real-time bilateral carotid ultrasound. Grayscale and color flow images evaluated. Duplex waveform analysis. COMPARISON: August,. FINDINGS: Variable and partially calcified plaque formation again noted in the bilateral distal CCAs, carotid bulbs and proximal ICAs, right greater than left. Vertebral artery blood flow antegrade bilaterally. Peak systolic and end-diastolic velocities are as follows: Right (cm/s): CCA: 73/13 ICA: 80/21 ICA/CCA Ratio: 1.1/1.6 Left (cm/s): CCA: 54/14 ICA: 136/33 ICA/CCA Ratio: 2.7/2.9 IMPRESSION: 1. Bilateral, partially calcified plaquing, right greater than left, similar to comparison. 2. Findings compatible with 50-69% stenosis in the left ICA by blood flow velocity criteria similar to NASCET. Stenosis based upon Society of Radiologists in Ultrasound consensus: <50%: ICA PS <125 cm/sec, ICA ED <40 cm/sec, ICA/CCA ratio <2.0 50-69%: ICA PS 125-230 cm/sec , ICA ED 40-100 cm/sec, ICA/CCA ratio 2-4 >70%: ICA PS >230 cm/sec, ICA ED >100 cm/sec, ICA/CCA ratio >4 Ultrasound Report Report Dictated on Workstation: [email or web address] Final Dictating Physician: MD CASTELLANOS WENDELL Signed Date and Time: 02/28/2021 2:06 pm Signed by: MD CASTELLANOS WENDELL Transcribed Date and Time: 02/28/2021 2:08 Cardiovascular ACCESSION EXAM DATE/TIME PROCEDURE [id number] 02/26/2021 15:32 EDT Carotid Duplex Ultrasound Complete CPT code 99127 Reason For Exam ( Carotid Duplex Ultrasound Complete) I77.9 Report ULTRASOUND OF BILATERAL CAROTID SYSTEMS WITH GRAYSCALE AND COLOR FLOW IMAGING AND SPECTRAL WAVEFORM ANALYSIS CLINICAL INDICATION: I77.9 TECHNIQUE: Real-time bilateral carotid ultrasound. Grayscale and color flow images evaluated. Duplex waveform analysis. COMPARISON: August,. FINDINGS: Variable and partially calcified plaque formation again noted in the bilateral distal CCAs, carotid bulbs and proximal ICAs, right greater than left. Vertebral artery blood flow antegrade bilaterally. Peak systolic and end-diastolic velocities are as follows: Right (cm/s): CCA: 73/13 ICA: 80/21 ICA/CCA Ratio: 1.1/1.6 Left (cm/s): CCA: 54/14 ICA: 136/33 ICA/CCA Ratio: 2.7/2.9 IMPRESSION: 1. Bilateral, partially calcified plaquing, right greater than left, similar to comparison. 2. Findings compatible with 50-69% stenosis in the left ICA by blood flow velocity criteria similar to NASCET. Stenosis based upon Society of Radiologists in Ultrasound consensus: Cardiovascular Report <50%: ICA PS <125 cm/sec, ICA ED <40 cm/sec, ICA/CCA ratio <2.0 50-69%: ICA PS 125-230 cm/sec , ICA ED 40-100 cm/sec, ICA/CCA ratio 2-4 >70%: ICA PS >230 cm/sec, ICA ED >100 cm/sec, ICA/CCA ratio >4 Report Dictated on Workstation: [email or web address] Final Dictating Physician: MD CASTELLANOS WENDELL Signed Date and Time: 02/28/2021 2:06 pm Signed by: MD CASTELLANOS WENDELL Transcribed Date and Time: 02/28/2021 2:08 Normal [facility] XR CHEST STANDARD (2 VW)Orde red By: Wayne Conde on 11-04-2019 Patient Name: FARZANA KELLEY ---Diagnostic Radiology--- Exam Date/Time 11/04/2019 14:36:00 EST Exam CR Chest PA/LAT Ordering Physician DO CONDE EUGENE F. Accession Number [id number] CPT4 Codes 75523 () Reason For Exam ? hemoptysis Report CHEST, PA & LATERAL: INDICATION: Hemoptysis COMPARISON: 03/03/2018 PA and lateral views of the chest were obtained. The heart is normal in size. The mediastinal silhouette is normal. There is mild left basal atelectasis. There are no effusions or infiltrates. There is biapical pleural thickening. The osseous structures are unremarkable. IMPRESSION: Left basal atelectasis. Report Dictated on --- Final --- Dictating Physician: DO FLANNERY ALFRED Signed Date and Time: 11/04/2019 3:22 pm Signed by: DO FLANNERY ALFRED Transcribed Date and Time: 11/04/2019 3:23 [facility] Work Phone: [facility] Incoming Radiology Results From [facility] - 11/04/2019 3:25 PM EST Patient Name: FARZANA HERRON ---Diagnostic Radiology--- Exam Date/Time 11/04/2019 14:36:00 EST Exam CR Chest PA/LAT Ordering Physician DO CONDE EUGENE F. Accession Number [id number] CPT4 Codes 10637 () Reason For Exam ? hemoptysis Report CHEST, PA & LATERAL: INDICATION: Hemoptysis COMPARISON: 03/03/2018 PA and lateral views of the chest were obtained. The heart is normal in size. The mediastinal silhouette is normal. There is mild left basal atelectasis. There are no effusions or infiltrates. There is biapical pleural thickening. The osseous structures are unremarkable. IMPRESSION: Left basal atelectasis. 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, complicated by CHB, PCI RCA unsuccessful(occluded with collaterals), residual LAD 75%, false negative nuclear stressHTNHLCarotid disease - 70% LICA, surgery on hold, asymptomaticDVT - bilateral 2016, IVC filter in placeADHERENCE TO GUIDELINESACE-I or ARB for HF with prior LVEFANDlt;40 (NQF 0081) - metASA or Plavix for ASHD (NQF 0067) - metBeta kiara for ASHD with prior AL or prior LVEFANDlt;40 (NQF 0070) - metBeta kiara for HF with prior LVEFANDlt;40 (NQF 0083) - metACE-I or ARB for ASHD with DM or prior LVEFANDlt;40 (NQF 0066) - metStatin therapy for ASHD or FHL or DM - metBMI documented and plan if ANDgt;25 (NQF 0421) - lifestyle recommendation formTobacco use screening and referral (NQF 0028) - lifestyle recommendation formRecommendation for whole food, plant based diet - lifestyle recommendation formCLINICAL IMPRESSION/PLAN:Farzana Herron is doing well. She's been advised to continue her currentmedication. Blood pressure is well-controlled. She's tolerating her betablocker well.I will see her in 6 months or as needed. If there is increased chest pain orshortness of breath, she has been advised to contact me.Written and verbal health teaching given to patient, patient verbalizesunderstanding and agrees with treatment plan.This note was generated using TripletPlus voice recognition system, and there may besome incorrect words, spellings, and punctuation that were not noted inchecking the note before saving.DIAGNOSIS FOR VISIT:ASHDHypertensionHISTOR Y OF PRESENT ILLNESSFarzana Herron returns for follow-up of her ischemic heart disease andhypertension.She reports that she has had stable exercise tolerance. She's had no recentchest discomfort. She was not hospitalized over the winter. She has had noedema, syncope, palpitations, TIAs, amaurosis or claudication.ALLERGIES:ALLER GIESAllergen Reactions- Codeine GI UpsetCURRENT OUTPATIENT MEDICATIONS:fluticasone (FLOVENT) 220 mcg/actuation inhaler Inhale 1 Puff as instructedtwice daily.SPIRIVA WITH HANDIHALER 18 mcg inhalation capsuleVENTOLIN HFA 90 mcg/actuation inhalerOYSTER SHELL CALCIUM-VITAMIN D 500 mg(1,250mg) -200 unit per tabletmetoprolol succinate ER (TOPROL XL) 25 mg 24 hr tablet Take 0.5 tablets bymouth once daily.pantoprazole DR (PROTONIX) 40 mg tablet Take 1 tablet by mouth once daily.isosorbide mononitrate ER (IMDUR) 30 mg 24 hr tablet Take 1 tablet by mouthonce daily.gabapentin (NEURONTIN) 300 mg capsule Take 2 capsules by mouth three timesdaily.loratadine (CLARITIN) 10 mg tablet Take 1 tablet by mouth once daily.mirtazapine (REMERON) 15 mg tablet Take 1 tablet by mouth daily at bedtime.Uyhre-7-EMA-EPA-Fish Oil 1,000 mg (120 mg-180 mg) cap Take 1 capsule by mouthonce daily.levothyroxine (SYNTHROID) 25 mcg tablet Take 25 mcg by mouth daily beforebreakfast.clopidogrel (PLAVIX) 75 mg tablet Take 75 mg by mouth once daily.sucralfate (CARAFATE) 1 gram tablet Take 1 g by mouth four times daily.calcium carbonate/vitamin d3(CALCIUM 500 + D (D3) 500 MG-125 UNIT TAB) Takethree tablets daily.aspirin(BABY ASPIRIN 81 MG CHEWABLE TAB) Take one(1) tablet daily.FLUZONE HIGH-DOSE 2017-18, PF, 180 mcg/0.5 mL injectionPHYSICAL EXAMINATION:VITAL SIGNS: BP 117/75 Pulse 80 Wt 128 lb 8 oz (58.3kg)Chest: Clear to percussion and auscultation. Trachea is midline. Air entry isequal. Cardiac: Regular rhythm. S1 and S2 are normal. PMI is nondisplaced.There is a soft systolic ejection murmur. Carotids are brisk without bruits.JVP is less than 10 cm. Abdomen: Soft and nontender. There are no pulsatilemasses or bruits. No liver enlargement. Bowel sounds are active.Extremities: No edema. Pulses are intact and symmetrical.Recent labs were reviewed. Renal function is moderately impaired.EKG shows sinus rhythm. 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 Nocfelixge is seen since 08/21/16.Electronically Signed:Gal Middleton, [facility] 2017 1:24 [facility]: Wayne Potter Miguel Middleton MD 02/02/2018 1:24 PM SignedLIFESTYLE CHANGEA healthy lifestyle is the most important component of your overall treatmentplan. Please give serious thought to the following areas and commit to makinglong term changes.EAT A WHOLE FOOD, PLANT BASED DIETThe nutrition your body gets is more important than the medicine you take.What matters most is the overall way you eat. We encourage you to minimize theuse of animal products (which include dairy and all meats except fatty fish)and use whole, unprocessed plant foods to provide your protein, vitamins andother nutrients. We have a lot of information to share with you on this topic. We also hold Shared Medical Appointments, where you can come visit with in the company of other patients and spend over an hour talking aboutthe challenges of changing the way you eat. This is not a ANDquot;dietANDquot;.It is a way of life that you will keep with you.EXERCISE REGULARLYIt is not important to spend hours in the gym, lifting weights and perspiringheavily. A total of 2-3 hours per week of aerobic (causing you to bemoderately short of breath) exercise is sufficient to improve your health.Talk to us before you begin a new exercise program, if you have heart diseaseor experience shortness of breath or chest pain.REDUCE STRESSChronic emotional and physical stress leads to disease. Ways of reducingstress include meditation, visualization, prayer, yoga and other forms ofrelaxation therapy. Consistency is the mcwilliams. Find a technique that works foryou and do it every day.CULTIVATE RELATIONSHIPSLoneliness and isolation have a major negative impact on health. Seek outothers who can love, care for and nurture you. Avoid hurtful relationships.MAINTAIN IDEAL BODY WEIGHTThe best way to do this is to do all the things above. Our bodies naturallyfind the right weight if we keep moving and feed ourselves the right food. Ifyour BMI is greater than 25, we strongly recommend a referral to a weightmanagement program. Please speak to us or your family physician aboutavailable programs.AVOID NICOTINE IN ALL FORMSThis includes all tobacco products, whether chewed, smoked, vaped, or rubbed onthe skin. Smoking cessation programs, which can make use of tobaccosubstitutes, medications to suppress cravings and behavior management, areavailable. Please contact your family physician about programs in your area.Referring Provider: GAL MIDDLETON [[id number]]Allergies As of Date: 02/02/2018 Noted Allergy ReactionCODEINE 03/03/2006 8 - GI UpsetDate Reviewed: 02/02/2018Reviewed by: Morenita (Starr) Margoth - Fully AssessedReason for Visit: Recheck [92]Primary Visit Diagnosis:ASHD (arteriosclerotic heart disease) [I25.10] Other Visit Diagnosis:Hypertension, essential [I10]Order(s):ECG B/O W INTERP (MED OFFICE) [ECG06] Order #: [id number] as of 02/02/2018 Sig: FLUTICASONE 220 MCG/ACTUATION* Inhale 1 Puff as instructed t* SPIRIVA WITH HANDIHALER 18 MC* VENTOLIN HFA 90 MCG/ACTUATION* OYSTER SHELL CALCIUM-VITAMIN * METOPROLOL SUCCINATE ER 25 MG* Take 0.5 tablets by mouth onc* PANTOPRAZOLE 40 MG TABLET,DEL* Take 1 tablet by mouth once d* ISOSORBIDE MONONITRATE ER 30 * Take 1 tablet by mouth once d* GABAPENTIN 300 MG CAPSULE Take 2 capsules by mouth thre* LORATADINE 10 MG TABLET Take 1 tablet by mouth once d* MIRTAZAPINE 15 MG TABLET Take 1 tablet by mouth daily * OMEGA 3-IKU-QSQ-FISH OIL 1,00* Take 1 capsule by mouth once * LEVOTHYROXINE 25 MCG TABLET Take 25 mcg by mouth daily be* CLOPIDOGREL 75 MG TABLET Take 75 mg by mouth once lela* SUCRALFATE 1 GRAM TABLET Take 1 g by mouth four times * * CALCIUM 500 MG (1,250 MG) + D* Take three tablets daily. * BABY ASPIRIN 81 MG CHEWABLE T* Take one(1) tablet daily. 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] INVALID FOR* Other postoperative infection [T81.4XXA] INVALID FOR*08/28/2016 OPEN WOUND SITE NOS [T14.8XXA] INVALID FOR* DERMATITIS NOS [L25.9] INVALID FOR* Pyoderma, Unspecified [L08.0] INVALID FOR* CELLULITIS EAR [H60.399] INVALID FOR* Psoriasis [L40.8] INVALID FOR* Xerosis INVALID FOR* Actinic skin damage [L57.8] INVALID FOR* Xerosis cutis [L85.3] INVALID FOR* Anxiety [F41.9] INVALID FOR* Anxiety disorder, unspecified [F41.9] INVALID FOR* Atherosclerotic heart disease of [place] coronar*INVALID FOR* Uzair ulcer [K25.9] INVALID FOR* Carotid artery disease without cerebral infarct*INVALID FOR* More... Chest pain, unspecified [R07.9] INVALID FOR* Chronic total occlusion of coronary artery [I25*INVALID FOR* Collagenous colitis [K52.831] INVALID FOR* More... COPD (chronic obstructive pulmonary disease) (H*INVALID FOR* More... Coronary artery disease involving [place] mountain heart *INVALID FOR* Essential (primary) hypertension [I10] INVALID FOR* GERD (gastroesophageal reflux disease) [K21.9] INVALID FOR* More... H/O: UGI bleed [Z87.19] INVALID FOR* More... Neuropathy (HCC) [G62.9] INVALID FOR* More... Metabolic encephalopathy [G93.41] INVALID FOR* LV dysfunction [I51.9] INVALID FOR* More... Lumbar degenerative disc disease [M51.36] INVALID FOR* Irritable bowel syndrome [K58.9] INVALID FOR* Hypothyroidism, unspecified [E03.9] INVALID FOR* Hypothyroid [E03.9] INVALID FOR* Hyperlipidemia, unspecified [E78.5] INVALID FOR* Hypercholesterolemia [E78.00] INVALID FOR* History of myocardial infarction [I25.2] INVALID FOR* History of hypertension [Z86.79] INVALID FOR* More... History of deep vein thrombosis of lower extrem*INVALID FOR* More... Old myocardial infarction [I25.2] INVALID FOR* Thoracic compression fracture (HCC) [S22.000A] INVALID FOR* More... Renal insufficiency syndrome [N28.9] INVALID FOR* Other instructions from your clinician: LIFESTYLE CHANGE A healthy lifestyle is the most important component of your overall treatment plan. Please give serious thought to the following areas and commit to making fci changes. EAT A WHOLE FOOD, PLANT BASED DIET The nutrition your body gets is more important than the medicine you take. What matters most is the overall way you eat. We encourage you to minimize the use of animal products (which include dairy and all meats except fatty fish) and use whole, unprocessed plant foods to provide your protein, vitamins and other nutrients. We have a lot of information to share with you on this topic. We also hold Shared Medical Appointments, where you can come visit with Dr. Middleton in the company of other patients and spend over an hour talking about the challenges of changing the way you eat. This is not a diet. It is a way of life that you will keep with you. EXERCISE REGULARLY It is not important to spend hours in the gym, lifting weights and perspiring heavily. A total of 2-3 hours per week of aerobic (causing you to be moderately short of breath) exercise is sufficient to improve your health. Talk to us before you begin a new exercise program, if you have heart disease or experience shortness of breath or chest pain. REDUCE STRESS Chronic emotional and physical stress leads to disease. Ways of reducing stress include meditation, visualization, prayer, yoga and other forms of relaxation therapy. Consistency is the mcwilliams. Find a technique that works for you and do it every day. CULTIVATE RELATIONSHIPS Loneliness and isolation have a major negative impact on health. Seek out others who can love, care for and nurture you. Avoid hurtful relationships. MAINTAIN IDEAL BODY WEIGHT The best way to do this is to do all the things above. Our bodies naturally find the right weight if we keep moving and feed ourselves the right food. If your BMI is greater than 25, we strongly recommend a referral to a weight management program. Please speak to us or your family physician about available programs. AVOID NICOTINE IN ALL FORMS This includes all tobacco products, whether chewed, smoked, vaped, or rubbed on the skin. Smoking cessation programs, which can make use of tobacco substitutes, medications to suppress cravings and behavior management, are available. Please contact your family physician about programs in your area. Status:Closed by GAL MIDDLETON MD on 02/02/18 [facility] PROGRESSon 02-02-2018 PROGRESS HNO ID: [id number] thor: Gal Grigsby: (none)Author Type: PhysicianType: Progress NotesFiled: 02/02/2018 5:01 PMNote Text:PERTINENT CARDIAC HISTORYASHD - IMI, possible RV involvement, complicated by CHB, PCI RCAunsuccessful (occluded with collaterals), residual LAD 75%, false negativenuclear stressHTNHLCarotid disease - 70% LICA, surgery on hold, asymptomaticDVT - bilateral 2017, IVC filter in placeADHERENCE TO GUIDELINESACE-I or ARB for HF with prior LVEF<40 (NQF 0081) - metASA or Plavix for ASHD (NQF 0067) - metBeta kiara for ASHD with prior AL or prior LVEF<40 (NQF 0070) - metBeta kiara for HF with prior LVEF<40 (NQF 0083) - metACE-I or ARB for ASHD with DM or prior LVEF<40 (NQF 0066) - metStatin therapy for ASHD or FHL or DM - metBMI documented and plan if >25 (NQF 0421) - lifestyle recommendation formTobacco use screening and referral (NQF 0028) - lifestyle recommendationformRecommenda tion for whole food, plant based diet - lifestyle recommendationformCLINICAL IMPRESSION/PLAN:Farzana Herron is doing well. She's been advised to continue hercurrent medication. Blood pressure is well-controlled. She's toleratingher beta kiara well.I will see her in 6 months or as needed. If there is increased chest painor shortness of breath, she has been advised to contact me.Written and verbal health teaching given to patient, patient verbalizesunderstanding and agrees with treatment plan.This note was generated using TripletPlus voice recognition system, and theremay be some incorrect words, spellings, and punctuation that were notnoted in checking the note before saving.DIAGNOSIS FOR VISIT:ASHDHypertensionHISTOR Y OF PRESENT ILLNESSFarzana Herron returns for follow-up of her ischemic heart disease andhypertension.She reports that she has had stable exercise tolerance. She's had norecent chest discomfort. She was not hospitalized over the winter. She hashad no edema, syncope, palpitations, TIAs, amaurosis or claudication.ALLERGIES:ALLER GIESAllergen Reactions- Codeine GI UpsetCURRENT OUTPATIENT MEDICATIONS:fluticasone (FLOVENT) 220 mcg/actuation inhaler Inhale 1 Puff asinstructed twice daily.SPIRIVA WITH HANDIHALER 18 mcg inhalation capsuleVENTOLIN HFA 90 mcg/actuation inhalerOYSTER SHELL CALCIUM-VITAMIN D 500 mg(1,250mg) -200 unit per tabletmetoprolol succinate ER (TOPROL XL) 25 mg 24 hr tablet Take 0.5 tablets bymouth once daily.pantoprazole DR (PROTONIX) 40 mg tablet Take 1 tablet by mouth once daily.isosorbide mononitrate ER (IMDUR) 30 mg 24 hr tablet Take 1 tablet bymouth once daily.gabapentin (NEURONTIN) 300 mg capsule Take 2 capsules by mouth three timesdaily.loratadine (CLARITIN) 10 mg tablet Take 1 tablet by mouth once daily.mirtazapine (REMERON) 15 mg tablet Take 1 tablet by mouth daily atbedtime.Fvqlt-8-FJA-EPA-Fi sh Oil 1,000 mg (120 mg-180 mg) cap Take 1 capsule bymouth once daily.levothyroxine (SYNTHROID) 25 mcg tablet Take 25 mcg by mouth daily beforebreakfast.clopidogrel (PLAVIX) 75 mg tablet Take 75 mg by mouth once daily.sucralfate (CARAFATE) 1 gram tablet Take 1 g by mouth four times daily.calcium carbonate/vitamin d3(CALCIUM 500 + D (D3) 500 MG-125 UNIT TAB)Take three tablets daily.aspirin(BABY ASPIRIN 81 MG CHEWABLE TAB) Take one(1) tablet daily.FLUZONE HIGH-DOSE 2016-, PF, 180 mcg/0.5 mL injectionPHYSICAL EXAMINATION:VITAL SIGNS: BP 117/75 Pulse 80 Wt 128 lb 8 oz (58.3kg)Chest: Clear to percussion and auscultation. Trachea is midline. Airentry is equal. Cardiac: Regular rhythm. S1 and S2 are normal. PMI isnondisplaced. There is a soft systolic ejection murmur. Carotids arebrisk without bruits. JVP is less than 10 cm. Abdomen: Soft andnontender. There are no pulsatile masses or bruits. No liverenlargement. Bowel sounds are active. Extremities: No edema. Pulses areintact and symmetrical.Recent labs were reviewed. Renal function is moderately impaired.EKG shows sinus rhythm. 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 Nocfelixge is seen since 08/21/16.Electronically Signed:Gal Middleton, [facility] 2017 1:24 [facility]: Wayne Conde [facility] Vital Signs Date Time Vital Sign Value Performing Clinician Facility 03-09-2025 09:31-0400 Body mass index (BMI) [Ratio] 20.2 kg/m2 Frederic Garcia MD Work Phone: [facility] 03-09-2025 09:31-0400 Body weight 47.17 kg Frederic Garcia MD Work Phone: [facility] 03-09-2025 09:31-0400 Diastolic blood pressure 52 mm[Hg] Frederic Garcia MD Work Phone: [facility] 03-09-2025 09:31-0400 Heart rate 74 /min Frederic Garcia MD Work Phone: [facility] 03-09-2025 09:31-0400 Respiratory rate 16 /min Frederic Garcia MD Work Phone: [facility] 03-09-2025 09:31-0400 Systolic blood pressure 83 mm[Hg] Frederic Garcia MD Work Phone: [facility] 02-16-2025 07:44-0400 Body height 152.4 cm Frederic Garcia MD Work Phone: 4(735)414-848653 [place] [address] 02-16-2025 07:44-0400 Body mass index (BMI) [Ratio] 20.5 kg/m2 Frederic Garcia MD Work Phone: 5(660)[phone] [place] [address] 02-16-2025 07:44-0400 Body temperature 96.2 [degF] Frederic Garcia MD Work Phone: 5(815)991-183453 [place] [address] 02-16-2025 07:44-0400 Body weight 47.62 kg Frederic Garcia MD Work Phone: 6(197)576-380953 [place] [address] 02-16-2025 07:44-0400 Diastolic blood pressure 60 mm[Hg] Frederic Garcia MD Work Phone: 3(248)114-204542 [address] 02-16-2025 07:44-0400 Heart rate 71 /min Frederic Garcia MD Work Phone: 2(918)519-488653 [place] [address] 02-16-2025 07:44-0400 Respiratory rate 18 /min Frederic Garcia MD Work Phone: 1(635)896-111353 [place] [address] 02-16-2025 07:44-0400 SaO2% (BldA) [Mass fraction] 87 % Frederic Garcia MD Work Phone: 3(869)972-638053 [place] [address] 02-16-2025 07:44-0400 Systolic blood pressure 99 mm[Hg] Frederic Garcia MD Work Phone: [facility] 01-23-2025 15:11-0500 Body temperature 98 [degF] Frederic Garcia MD Work Phone: 3(740)817-463853 [place] [address] 01-23-2025 15:11-0500 Diastolic blood pressure 54 mm[Hg] Frederic Garcia MD Work Phone: 3(023)225-096453 [place] [address] 01-23-2025 15:11-0500 Heart rate 78 /min Frederic Garcia MD Work Phone: [facility] 01-23-2025 15:11-0500 Respiratory rate 15 /min Frederic Garcia MD Work Phone: [facility] 01-23-2025 15:11-0500 SaO2% (BldA) [Mass fraction] 92 % Frederic Garcia MD Work Phone: [facility] 01-23-2025 15:11-0500 Systolic blood pressure 107 mm[Hg] Frederic Garcia MD Work Phone: 3(548)696-693853 [place] [address] 01-23-2025 14:00-0500 Inhaled oxygen flow rate 3 L/min Frederic Garcia MD Work Phone: 4(759)436-125453 [place] [address] 01-23-2025 10:39-0500 Body mass index (BMI) [Ratio] 22.3 kg/m2 Frederic Garcia MD Work Phone: 0(074)573-504653 [place] [address] 01-23-2025 10:39-0500 Body weight 51.8 kg Frederic Garcia MD Work Phone: 7(738)228-531053 [place] [address] 01-12-2025 20:47-0500 Diastolic blood pressure 71 mm[Hg] Frederic Garcia MD Work Phone: 9(564)488-119053 [place] [address] 01-12-2025 20:47-0500 Heart rate 88 /min Frederic Garcia MD Work Phone: [facility] 01-12-2025 20:47-0500 Systolic blood pressure 135 mm[Hg] Frederic Garcia MD Work Phone: [facility] 01-12-2025 16:06-0500 Body temperature 98.2 [degF] Frederic Garcia MD Work Phone: 6(300)497-415553 [place] [address] 01-12-2025 16:06-0500 Respiratory rate 18 /min Frederic Garcia MD Work Phone: 0(505)005-525053 [place] [address] 01-12-2025 16:06-0500 SaO2% (BldA) [Mass fraction] 95 % Frederic Garcia MD Work Phone: 1(353)170-284253 [place] [address] 01-12-2025 06:00-0500 Body mass index (BMI) [Ratio] 22.5 kg/m2 Frederic Garcia MD Work Phone: [facility] 01-12-2025 06:00-0500 Body weight 52 kg Frederic Garcia MD Work Phone: [facility] 01-09-2025 06:47-0500 Inhaled oxygen flow rate 2 L/min Frederic Garcia MD Work Phone: [facility] 01-04-2025 14:15-0500 Body temperature 97.9 [degF] Frederic Garcia MD Work Phone: [facility] 01-04-2025 14:15-0500 Diastolic blood pressure 58 mm[Hg] Frederic Garcia MD Work Phone: 2(362)012-797853 [place] [address] 01-04-2025 14:15-0500 Heart rate 67 /min Frederic Garcia MD Work Phone: 1(770)956-587353 [place] [address] 01-04-2025 14:15-0500 Respiratory rate 18 /min Frederic Garcia MD Work Phone: [facility] 01-04-2025 14:15-0500 SaO2% (BldA) [Mass fraction] 96 % Frederic Garcia MD Work Phone: [facility] 01-04-2025 14:15-0500 Systolic blood pressure 138 mm[Hg] Frederic Garcia MD Work Phone: [facility] 01-02-2025 20:34-0500 Body mass index (BMI) [Ratio] 22.8 kg/m2 Frederic Garcia MD Work Phone: [facility] 01-02-2025 20:34-0500 Body weight 51.2 kg Frederic Garcia MD Work Phone: [facility] 12-22-2024 13:35-0500 Body height 149.9 cm Wayne Conde DO Work Phone: [facility] 12-22-2024 13:35-0500 Body mass index (BMI) [Ratio] 22.82 kg/m2 Wayne Conde DO Work Phone: [employer] 12-22-2024 13:35-0500 Body temperature 97.81 [degF] Wayne Conde DO Work Phone: [facility] [employer] 12-22-2024 13:35-0500 Body weight 51.26 kg Wayne Conde DO Work Phone: [facility] [employer] 12-22-2024 13:35-0500 Diastolic blood pressure 65 mm[Hg] Wayne Conde DO Work Phone: [facility] [employer] 12-22-2024 13:35-0500 Heart rate 89 /min Wayne Conde DO Work Phone: [facility] [employer] 12-22-2024 13:35-0500 Systolic blood pressure 110 mm[Hg] Wayne Conde DO Work Phone: [facility] [employer] 09-22-2024 13:45-0400 Body height 149.9 cm Wayne Conde DO Work Phone: [facility] [employer] 09-22-2024 13:45-0400 Body mass index (BMI) [Ratio] 23.23 kg/m2 Wayne Conde DO Work Phone: [facility] [employer] 09-22-2024 13:45-0400 Body temperature 97.81 [degF] Wayne Conde DO Work Phone: [facility] [employer] 09-22-2024 13:45-0400 Body weight 52.16 kg Wayne Conde DO Work Phone: [facility] [employer] 09-22-2024 13:45-0400 Diastolic blood pressure 66 mm[Hg] Wayne Conde DO Work Phone: [facility] [employer] 09-22-2024 13:45-0400 Heart rate 66 /min Wayne Conde DO Work Phone: [facility] [employer] 09-22-2024 13:45-0400 SaO2% (BldA) [Mass fraction] 93 % Wayne Conde DO Work Phone: [facility] [employer] 09-22-2024 13:45-0400 Systolic blood pressure 104 mm[Hg] Wayne Conde DO Work Phone: [facility] [employer] 05-26-2024 16:00-0400 Diastolic blood pressure 78 mm[Hg] Wayne Galarzaa DO Work Phone: [facility] [employer] 05-26-2024 16:00-0400 Heart rate 68 /min Wayne Conde DO Work Phone: [facility] [employer] 05-26-2024 16:00-0400 Systolic blood pressure 132 mm[Hg] Wayne Galarzaa DO Work Phone: [facility] [employer] 05-26-2024 15:01-0400 Body height 149.9 cm Wayne Conde DO Work Phone: [facility] [employer] 05-26-2024 15:01-0400 Body mass index (BMI) [Ratio] 24.44 kg/m2 Wayne Conde DO Work Phone: [facility] [employer] 05-26-2024 15:01-0400 Body temperature 97 [degF] Wayne Conde DO Work Phone: [facility] [employer] 05-26-2024 15:01-0400 Body weight 54.88 kg Wayne Conde DO Work Phone: [facility] [employer] 05-26-2024 15:01-0400 SaO2% (BldA) [Mass fraction] 94 % Wayne Conde DO Work Phone: [facility] [employer] 02-04-2024 15:05-0400 Diastolic blood pressure 78 mm[Hg] Wayne Conde DO Work Phone: [facility] [employer] 02-04-2024 15:05-0400 Heart rate 68 /min Wayne Galarzaa DO Work Phone: [facility] [employer] 02-04-2024 15:05-0400 Systolic blood pressure 138 mm[Hg] Wayne Galarzaa DO Work Phone: [facility] [employer] 02-04-2024 14:35-0400 Body height 149.9 cm Wayne Conde DO Work Phone: [facility] [employer] 02-04-2024 14:35-0400 Body mass index (BMI) [Ratio] 23.43 kg/m2 Wayne Conde DO Work Phone: [facility] [employer] 02-04-2024 14:35-0400 Body temperature 97 [degF] Wayne Conde DO Work Phone: [facility] [employer] 02-04-2024 14:35-0400 Body weight 52.62 kg Wayne Conde DO Work Phone: [facility] [employer] 02-04-2024 14:35-0400 SaO2% (BldA) [Mass fraction] 96 % Wayne Conde DO Work Phone: [facility] [employer] 01-21-2024 08:30-0500 Body temperature 96.49 [degF] Don Wasserman MD Work Phone: [facility] [employer] 01-21-2024 08:30-0500 Diastolic blood pressure 67 mm[Hg] Don Wasserman MD Work Phone: [facility] [employer] 01-21-2024 08:30-0500 Heart rate 99 /min Don Wasserman MD Work Phone: [facility] [employer] 01-21-2024 08:30-0500 Respiratory rate 20 /min Don Wasserman MD Work Phone: [facility] [employer] 01-21-2024 08:30-0500 SaO2% (BldA) [Mass fraction] 96 % Don Wasserman MD Work Phone: [facility] [employer] 01-21-2024 08:30-0500 Systolic blood pressure 131 mm[Hg] Don Wasserman MD Work Phone: [facility] [employer] 01-21-2024 03:00-0500 Body mass index (BMI) [Ratio] 24.04 kg/m2 Don Wasserman MD Work Phone: [facility] [employer] 01-21-2024 03:00-0500 Body weight 54 kg Don Wasserman MD Work Phone: [facility] [employer] 01-17-2024 11:20-0500 Body height 149.9 cm Don Wasserman MD Work Phone: [facility] [employer] 07-17-2023 13:58-0400 Body height 149.9 cm Wayne Conde DO Work Phone: [facility] [employer] 07-17-2023 13:58-0400 Body mass index (BMI) [Ratio] 24.44 kg/m2 Wayne Conde DO Work Phone: [facility] [employer] 07-17-2023 13:58-0400 Body temperature 97.5 [degF] Wayne Conde DO Work Phone: [facility] [employer] 07-17-2023 13:58-0400 Body weight 54.88 kg Wayne Conde DO Work Phone: [facility] [employer] 07-17-2023 13:58-0400 Diastolic blood pressure 71 mm[Hg] Wayne Conde DO Work Phone: [facility] [employer] 07-17-2023 13:58-0400 Heart rate 71 /min Wayne Conde DO Work Phone: [facility] [employer] 07-17-2023 13:58-0400 SaO2% (BldA) [Mass fraction] 95 % Wayne Conde DO Work Phone: [facility] [employer] 07-17-2023 13:58-0400 Systolic blood pressure 116 mm[Hg] Wayne Conde DO Work Phone: [facility] [employer] 01-09-2023 12:54-0500 Diastolic blood pressure 72 mm[Hg] Wayne Conde DO Work Phone: [facility] [employer] 01-09-2023 12:54-0500 Heart rate 68 /min Wayne Conde DO Work Phone: [facility] [employer] 01-09-2023 12:54-0500 Systolic blood pressure 118 mm[Hg] Wayne Conde DO Work Phone: [facility] [employer] 01-09-2023 12:17-0500 Body height 149.9 cm Wayne Conde DO Work Phone: [facility] [employer] 01-09-2023 12:17-0500 Body mass index (BMI) [Ratio] 25.04 kg/m2 Wayne Conde DO Work Phone: [facility] 01-09-2023 12:17-0500 Body temperature 97.11 [degF] Wayne Conde DO Work Phone: [facility] 01-09-2023 12:17-0500 Body weight 56.25 kg Wayne Conde DO Work Phone: [facility] 01-09-2023 12:17-0500 SaO2% (BldA) [Mass fraction] 96 % Wayne Conde DO Work Phone: [facility] Encounters Encounter Date Encounter Type Care Provider Facility Start: 06-07-2025 End: 06-07-2025 Refill Wayne Conde DO Work Phone: [facility] Start: 05-25-2025 End: 05-26-2025 Refill Wayne Conde DO Work Phone: [facility] Start: 05-03-2025 End: 05-03-2025 Telephone encounter Wayne Conde DO Work Phone: [facility] Comment on above: Other Start: 05-02-2025 End: 05-02-2025 Telephone encounter Wayne Conde DO Work Phone: [facility] Comment on above: Appointment (RAJ felipe t need to scheduled ) Start: 04-29-2025 End: 06-08-2025 Telephone encounter Wayne Conde DO Work Phone: [facility] Comment on above: Appointment Request Referral Start: 03-24-2025 End: 03-24-2025 ambulatory Frederic Garcia MD Work Phone: [facility] Work Phone: Start: 03-24-2025 End: 03-24-[address] Leena Corado MD -[facility] Start: 03-24-2025 End: 03-24-2025 ambulatory [facility] Facility:[facility] Start: 03-09-2025 End: 03-09-[address] Adriel Charles MD -[facility] Work Phone: Start: 03-09-2025 End: 03-09-2025 ambulatory Adriel Charles Facility:[facility] Start: 02-16-2025 End: 02-16-2025 Patient encounter procedure Jennifer Tolbert [employer] OPERATOR- -[facility] Work Phone: Start: 02-16-2025 End: 02-16-2025 ambulatory Jennifer Tolbert NP Facility:[facility] Start: 02-01-2025 End: 02-01-2025 ambulatory Frederic Garcia MD Work Phone: [facility] Work Phone: Start: 02-01-2025 End: 02-01-[address] Leena Corado MD -[facility] Start: 02-01-[address] Leena Corado MD -[facility] Start: 02-01-2025 End: 02-01-2025 ambulatory [facility] Facility:[facility] Start: 01-28-2025 End: 01-28-2025 ambulatory Frederic Garcia MD Work Phone: [facility] Work Phone: Start: 01-28-2025 End: 01-28-[address] Leena Corado MD -[facility] Start: 01-28-2025 End: 01-28-2025 ambulatory Leena GARCIA Facility:[facility] Start: 01-24-2025 End: 01-24-2025 ambulatory Frederic Garcia MD Work Phone: [facility] Work Phone: Start: 01-24-2025 End: 01-24-[address] Leena Corado MD -[facility] Start: 01-24-[address] Leena Corado MD -[facility] Start: 01-24-2025 End: 01-24-2025 ambulatory [facility] Facility:[facility] Start: 01-23-2025 End: 01-23-2025 Emergency department patient visit Dr. Frederic Garcia MD -[facility] Work Phone: Start: 01-20-2025 End: 01-20-2025 ambulatory Frederic Garcia MD Work Phone: [facility] Work Phone: Start: 01-20-2025 End: 01-20-[address] Leena Corado MD -[facility] Start: 01-20-[address] Leena Corado MD -[facility] Start: 01-20-2025 End: 01-20-2025 ambulatory [facility] Facility:[facility] Start: 01-17-2025 ambulatory Wayne Petrilla Facilit y:[facility] Start: 01-17-[address] Leena Corado MD -[facility] Start: 01-13-2025 ambulatory Wayne Petria Facilit y:[facility] Start: 01-13-[address] Leena Corado MD -[facility] Start: 01-12-2025 Non-patient / Non-visit Dr. Tan Triplett MD -[facility] Work Phone: Start: 01-11-2025 Non-patient / Non-visit Dr. Tan Triplett MD -[facility] Work Phone: Start: 01-10-2025 Non-patient / Non-visit Dr. Tan Triplett MD -[facility] Work Phone: Start: 01-09-2025 End: 01-12-2025 Evaluation and management of inpatient Dr. Tan Triplett MD -[facility] Work Phone: Start: 01-09-2025 Non-patient / Non-visit Dr. Shamir Costa DO -[facility] Work Phone: Start: 01-09-2025 End: 01-12-2025 ambulatory Maynor Costa Facility:[facility] Start: 01-04-2025 Non-patient / Non-visit Dr. Ngozi Bauer DO -[facility] Work Phone: Start: 01-03-2025 Non-patient / Non-visit Dr. Ngozi Bauer DO -[facility] Work Phone: Start: 01-02-2025 End: 01-04-2025 ambulatory [facility] Facility:[facility] Start: 01-02-2025 End: 01-04-2025 Evaluation and management of inpatient Dr. 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, unspecified vessel or lesion type; Neuropathy; Hypercholesterolemia; Irregular heart rhythm Essential hypertensi on (Primary Dx); Alzheimer's disease, unspecified (CODE) (HCC); Chronic systolic (congestive) heart failure (HCC); Gastroesophageal reflux disease without esophagitis; Chronic bronchitis, unspecified chronic bronchitis type (HCC); 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, unspecified vessel or lesion type; Neuropathy; Hypercholesterolemia; Irregular heart rhythm; Normochromic normocytic anemia Start: 12-22-2024 End: 12-22-2024 ambulatory [facility] Start: 11-30-2024 End: 11-30-2024 Refill Wayne Potter Elton MILLER Work Phone: [facility] Start: 09-23-2024 End: 09-23-2024 Refill Wayne Conde DO Work Phone: [facility] Start: 09-22-2024 End: 09-22-2024 Office outpatient visit 25 minutes Wayne Conde DO Work Phone: [facility] Comment on above: Essential hypertensi on (Primary Dx); Alzheimer's disease, unspecified (CODE) (HCC); 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, unspecified vessel or lesion type; Chronic bronchitis, unspecified chronic bronchitis type (HCC); Chronic systolic (congestive) heart failure (HCC); Compression fracture of thoracic vertebra, unspecified thoracic vertebral level, sequela; Hypercholesterolemia; Acquired hypothyroidism Start: 09-22-2024 End: 09-22-2024 ambulatory [facility] Start: 08-26-2024 End: 08-26-2024 Refill Wayne Galarzaa DO Work Phone: [facility] Start: 07-28-2024 End: 07-28-2024 Refill Wayne Conde DO Work Phone: [facility] Start: 07-12-2024 End: 07-12-2024 Refill Wayne Conde DO Work Phone: [facility] Start: 05-26-2024 End: 05-26-2024 Office outpatient visit 25 minutes Wayne Galarzaa DO Work Phone: [facility] Comment on above: Coronary artery dise ase involving ute mountain heart without angina pectoris, unspecified vessel or lesion type (Primary Dx); History of myocardial infarction; Alzheimer's disease, unspecified (CODE) (HCC); Hypercholesterolemia; Acquired hypothyroidism; Chronic bronchitis, unspecified chronic bronchitis type (HCC); Neuropathy; Anxiety; Scalp hematoma, initial encounter Start: 05-19-2024 End: 05-19-2024 Refill Wayne Galarzaa DO Work Phone: [facility] Start: 02-18-2024 Refill Wayne kauffmana DO Work Phone: [facility] Start: 02-05-2024 Telephone encounter Wayne Abbey Josephine poe DO Work Phone: [facility] Comment on above: Referral (Home Nursi ng) Start: 02-04-2024 End: 02-04-2024 Office outpatient visit 25 minutes Wayne Conde DO Work Phone: [facility] Comment on above: Essential hypertensi on (Primary Dx); Alzheimer's disease, unspecified (CODE) (HCC); Chronic systolic (congestive) heart failure (HCC); Chronic bronchitis, unspecified chronic bronchitis type (HCC); Hypercholesterolemia; Lumbar degenerative disc disease; 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, unspecified vessel or lesion type; Acquired hypothyroidism Start: 01-23-2024 Telephone encounter Wayne Abbey Josephine poe DO Work Phone: [facility] Comment on above: Request For Order(s) ([employer]ator) Start: 01-16-2024 End: 01-21-2024 Evaluation and management of inpatient Don Wasserman MD Work Phone: [facility] Comment on above: Syncope and collapse (Primary Dx); Lung nodule; Dehydration; Colitis; Hypokalemia; Syncope, unspecified syncope type; Cognitive deficits Start: 08-19-2023 Refill Wayne Abbey Nyasia justice DO Work Phone: [facility] Start: 08-01-2023 Telephone encounter Wayne poe DO Work Phone: [facility] Comment on above: requested Rx refill? 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, unspecified vessel or lesion type Start: 05-26-2023 Refill Wayne justice DO Work Phone: [facility] Start: 05-09-2023 Refill Wayne justice DO Work Phone: [facility] Comment on above: Other osteoarthritis of spine, thoracic region Start: 03-26-2023 Refill Wayne justice DO Work Phone: [facility] Start: 01-19-2023 Orders Only Wayne justice DO Work Phone: [facility] Start: 01-09-2023 End: 01-09-2023 Office outpatient visit 25 minutes Wayne Abbye Nyasiavinh DO Work Phone: [facility] Comment on above: Neuropathy (Primary Dx); Essential hypertension; Hypercholesterolemia; Chronic systolic (congestive) heart failure (HCC); 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, unspecified vessel or lesion type; Acquired hypothyroidism; Alzheimer's disease, unspecified (CODE) (HCC) Start: 02-26-2021 End: 02-26-2021 Subsequent hospital visit by physician Wayne Conde Work Phone: [facility] Start: 11-04-2019 End: 11-04-2019 Subsequent hospital visit by physician Wayne Conde DO Work Phone: [facility] Comment on above: Pulmonary emphysema, unspecified emphysema type (HCC); Hemoptysis Start: 08-10-2018 Ambulatory [facility] Facility :[facility] Start: 02-02-2018 End: 02-02-2018 Ambulatory [facility] Procedures Date Procedure Procedure Detail Performing Clinician Start: 03-09-2025 Evaluation of diagno stic study results Frederic Garcia MD Work Phone: Start: 02-01-2025 Vitamin D, 25-hydrox y measurement Frederic Garcia MD Work Phone: Comment on above: Vitamin D StatusDefi ciency: <20 ng/mL (50nmol/L)Insufficiency: 20-30 ng/mL (50-75 nmol/L)Sufficiency: 30-100 ng/mL (75-250 nmol/L)Toxicity: >100 ng/mL (>250 nmol/L) Start: 01-23-2025 SARS-CoV-2, Influenz a & RSV (PCR) Frederic Garcia MD Work Phone: Start: 01-23-2025 Carbon dioxide measurement, partial pressure Frederic Garcia MD Work Phone: Start: 01-23-2025 Gases blood o2 satur ation only direct harish Frederic Garcia MD Work Phone: Start: 01-23-2025 Measurement of parti al pressure of oxygen in blood Frederic Garcia MD Work Phone: Start: 01-23-2025 Oxygen measurement Frederic Garcia MD Work Phone: Start: 01-23-2025 CT angiography of ch est with contrast Frederic Gacria MD Work Phone: Start: 01-23-2025 Estimated creatinine clearance Frederic Garcia MD Work Phone: Start: 01-17-2025 Measurement of renal function Frederic Garcia MD Work Phone: Comment on above: GFR Calc Start: 01-13-2025 Measurement of renal function Frederic Garcia MD Work Phone: Comment on above: GFR Calc Start: 01-13-2025 Vitamin B12 measurement Frederic Garcia MD Work Phone: Start: 01-13-2025 Vitamin D, 25-hydrox y measurement Frederic Garcai MD Work Phone: Comment on above: Vitamin D 25(OH) Sta tus Range Deficiency <20 ng/mL (50nmol/L) Insufficiency 20 - 30 ng/mL (50 - 75 nmol/L) Sufficiency 30 - 100 ng/mL (75 - 250 nmol/L) Toxicity >100 ng/mL (>250 nmol/L)Evidence suggests that patients undergoing fluorescein dye angiography can retain small amounts of fluorescein in the body for up to 48 to 72 hours post-treatment. In the cases of patients with renal insufficiency, retention could be much longer. Samples containing fluorescein can produce falsely elevated values when tested with the [employer] Centaur Vitamin D assay. With fluorescein interference, observed Vitamin D values can be as high as >150 ng/mL (>375 nmol/L). Samples should be resubmitted post fluorescein clearance to ensure there is no interference with Vitamin D test results. Start: 01-13-2025 Thyrotropin [Units/volume] in Serum or Plasma Wayne Conde DO Work Phone: Start: 01-11-2025 Measurement of occul t blood in stool specimen using immunoassay Frederic Garcia MD Work Phone: Start: 01-11-2025 Assay of phosphorus inorganic Frederic Garcia MD Work Phone: Start: 01-10-2025 Estimated creatinine clearance Frederic Garcia MD Work Phone: Start: 01-10-2025 Measurement of renal function Frederic Garcia MD Work Phone: Comment on above: GFR Calc Start: 01-09-2025 Plain radiography of pelvis Frederic Garcia MD Work Phone: Start: 01-09-2025 SARS-CoV-2, Influenz a & RSV (PCR) Frederic Garcia MD Work Phone: Start: 01-09-2025 Vitamin B12 measurement Frederic Garcia MD Work Phone: Start: 01-09-2025 CT of abdomen and pe lvis without contrast Frederic Garcia MD Work Phone: Start: 01-09-2025 Plain chest X-ray Frederic Garcia MD Work Phone: Start: 01-09-2025 Urnls dip stick/tabl et reagent auto microscopy Frederic Garcia MD Work Phone: Start: 01-09-2025 Folic acid measurement Frederic Garcia MD Work Phone: Start: 01-09-2025 CT cervical spine wi thout contrast Frederic Garcia MD Work Phone: Start: 01-09-2025 CT of head without contrast Frederic Garcia MD Work Phone: Start: 01-03-2025 Plain X-ray of shoulder Frederic Garcia MD Work Phone: Start: 01-03-2025 Estimated creatinine clearance Frederic Garcia MD Work Phone: Start: 01-03-2025 Measurement of renal function Frederic Garcia MD Work Phone: Comment on above: GFR Calc Start: 01-02-2025 Plain X-ray of tibia and fibula Frederic Garcia MD Work Phone: Start: 01-02-2025 X-ray of knee, four or more views Frederic Garcia MD Work Phone: Start: 01-02-2025 Plain X-ray of shoulder Frederic Garcia MD Work Phone: Start: 12-22-2024 Complete blood count with white cell differential, automated Wayne Conde DO Work Phone: Start: 12-22-2024 Comprehensive metabo lic panel Wayen Conde DO Work Phone: Start: 12-22-2024 Ecg routine ecg w/le ast 12 lds w/i&r Wayne Conde DO Work Phone: Start: 09-22-2024 Adult depression screening assessment Wayne Conde DO Work Phone: Start: 01-21-2024 Radiologic exam abdo men 1 view Louann Martinezs [employer] Work Phone: Start: 01-21-2024 Basic metabolic pane l calcium total Louann Stiven [employer] Work Phone: Start: 01-20-2024 25 hydroxy includes fractions if performed Zunilda Diamond [employer] Work Phone: Start: 01-19-2024 Basic metabolic pane l calcium total Adrien Curry [employer] Work Phone: Start: 01-18-2024 Glucose quantitative blood xcpt reagent strip Adrien Deborah Curry APRN - [employer] Work Phone: Start: 01-18-2024 Radiologic exam abdo men 1 view Adrienjovani Curry [employer] Work Phone: Start: 01-18-2024 Ecg routine ecg w/le ast 12 lds trcg only w/o i&r Adrien Cabrera Sue ROJASN - [employer] Work Phone: Start: 01-17-2024 Echo tthrc r-t 2d w/wom-mode compl spec&colr d Re Padilla MD Work Phone: Start: 01-17-2024 Basic metabolic pane l calcium total Re Padilla MD Work Phone: Start: 01-17-2024 Thyrotropin [Units/volume] in Serum or Plasma Don Wasserman MD Work Phone: Start: 01-16-2024 Assay of troponin quantitative Don Wasserman MD Work Phone: Start: 01-16-2024 Assay of troponin quantitative Don Wasserman MD Work Phone: Start: 01-16-2024 Urinalysis complete panel - Urine Don Wasserman MD Work Phone: Start: 01-16-2024 Urnls dip stick/tabl et reagent auto microscopy Don Wasserman MD Work Phone: Start: 01-16-2024 Ct thorax w/o contra st material Don Wasserman MD Work Phone: Start: 01-16-2024 Ct abdomen & pelvis w/contrast material Don Wasserman MD Work Phone: Start: 01-16-2024 Ct cervical spine w/ o contrast material Don Wasserman MD Work Phone: Start: 01-16-2024 Ct head/brain w/o contrast material Don Wasserman MD Work Phone: Start: 01-16-2024 Radiologic exam ches t single view Don Wasserman MD Work Phone: Start: 01-16-2024 Ecg routine ecg w/le ast 12 lds trcg only w/o i&r Don Wasserman MD Work Phone: Start: 01-16-2024 Comprehensive metabo lic panel Don Wasserman MD Work Phone: Start: 01-16-2024 SARS-COV-2, FLU A/B, AND RSV COMBO Don Wasserman MD Work Phone: Start: 04-09-2023 Thyrotropin [Units/volume] in Serum or Plasma Wayne Conde DO Work Phone: Start: 01-15-2023 Thyrotropin [Units/volume] in Serum or Plasma Wayne Conde DO Work Phone: Start: 07-11-2022 Lipid 1996 panel - S vi or Plasma Wayne Cnode DO Work Phone: Start: 07-11-2022 Thyrotropin [Units/volume] in Serum or Plasma Wayne Conde DO Work Phone: Start: 11-04-2019 Radiologic exam ches t 2 views Wayne Conde DO Work Phone: Start: 07-09-2016 End: 07-09-2016 History of placement of stent for coronary artery disease History of coronary artery stent placement Wayne Conde DO Work Phone: Plan of Treatment Date Care Activity Detail Author Start: 10-29-2028 Colon cancer screen colonoscopy Colon cancer screen colonoscopy [employer] Work Phone: Start: 10-29-2028 Screening for malignant neoplasm of colon Colon cancer screen colonoscopy [employer] Work Phone: Start: 07-11-2027 Lipid panel Lipid Panel [employer] Start: 01-13-2026 Thyroid stimulating hormone measurement TSH Level [employer] Start: 12-22-2025 Creatinine measurement Creatinine Level [employer] Start: 12-22-2025 Diabetes: Estimated Glomerular Filtration Rate for Kidney Health Diabetes: Estimated Glomerular Filtration Rate [facility] [employer] Start: 12-22-2025 Potassium measurement Potassium Level [facility] Start: 09-22-2025 Depression Screening Depression Screening [facility] Start: 07-25-2025 Influenza vaccination Influenza Vaccine (#1) [facility] Start: 07-18-2025 End: 07-18-2025 Patient encounter procedure 07/18/2025 2:20 PM EDT Office Visit [facility] [address] [place] [address] Wayne Conde, [address] [place] [address] [facility] Start: 03-23-2025 Depression Monitoring Depression Monitoring [facility] Start: 03-16-2025 End: 03-16-2025 Patient encounter procedure 03/16/2025 4:00 PM EDT [facility] [address] [place] [address] Wayne Conde, [address] [place] [address] [facility] Start: 01-23-2025 [facility] Start: 01-23-2025 [facility] Start: 01-21-2025 Creatinine measurement Creatinine Level [facility] Start: 01-21-2025 Diabetes: Estimated Glomerular Filtration Rate for Kidney Health Diabetes: Estimated Glomerular Filtration Rate for Kidney Health [facility] Start: 01-21-2025 Potassium measurement Potassium Level [facility] Start: 01-17-2025 Echocardiography Echocardiogram [facility] Start: 01-17-2025 Thyroid stimulating hormone measurement TSH Level [facility] Start: 01-12-2025 Patient discharge [facility] Start: 01-11-2025 [facility] Start: 01-10-2025 Care planning and problem solving actions [facility] Start: 01-10-2025 Application of ice collar, cap or bag [facility] Start: 01-09-2025 [facility] Start: 01-09-2025 Application of intermittent pneumatic compression device [facility] Start: 01-09-2025 Following clinical pathway protocol [facility] Start: 01-09-2025 Assessment of risk of venous thromboembolism [facility] Start: 01-09-2025 Documentation procedure [facility] Start: 01-09-2025 Insertion of catheter into peripheral vein [facility] Start: 01-09-2025 Measuring intake and output [facility] Start: 01-09-2025 Providing care according to standard [facility] Start: 01-09-2025 Provision of activity privileges [facility] Start: 01-09-2025 Referral to occupational therapist [facility] Start: 01-09-2025 Referral to service [facility] Start: 01-09-2025 Tobacco use cessation education [facility] Start: 01-09-2025 [facility] Start: 01-09-2025 Admission procedure [facility] Start: 01-04-2025 Patient discharge [facility] Start: 01-02-2025 Assessment of risk of venous thromboembolism [facility] Start: 01-02-2025 Insertion of catheter into peripheral vein [facility] Start: 01-02-2025 Providing care according to standard [facility] Start: 01-02-2025 Provision of activity privileges [facility] Start: 01-02-2025 Referral to occupational therapist [facility] Start: 01-02-2025 Referral to service [facility] Start: 01-02-2025 [facility] Start: 01-02-2025 Admission procedure [facility] Start: 12-26-2024 End: 12-26-2025 C reactive protein [Mass/volume] in Serum or Plasma C-reactive protein Lab Routine Normochromic normocytic anemia Expected: 12/26/2024 (Approximate), Expires: 12/26/2025 [facility] [employer] Comment on above: Expected: 12/26/2024 (Approximate), Expi res: 12/26/2025 Start: 12-26-2024 End: 12-26-2025 Cobalamin (Vitamin B12) [Mass/volume] in Serum or Plasma Vitamin B12 Lab Routine Normochromic normocytic anemia Expected: 12/26/2024 (Approximate), Expires: 12/26/2025 [facility] [employer] Comment on above: Expected: 12/26/2024 (Approximate), Expi res: 12/26/2025 Start: 12-26-2024 End: 12-26-2025 Erythrocyte sedimentation rate Sedimentation rate, automated Lab Routine Normochromic normocytic anemia Expected: 12/26/2024 (Approximate), Expires: 12/26/2025 [facility] [employer] [facility] Work Phone: Comment on above: Expected: 12/26/2024 (Approximate), Expi res: 12/26/2025 Start: 12-26-2024 End: 12-26-2025 Ferritin [Mass/volume] in Serum or Plasma Ferritin Lab Routine Normochromic normocytic anemia Expected: 12/26/2024 (Approximate), Expires: 12/26/2025 [facility] Comment on above: Expected: 12/26/2024 (Approximate), Expi res: 12/26/2025 Start: 12-26-2024 End: 12-26-2025 Iron and Iron binding capacity panel - Serum or Plasma Iron and TIBC Lab Routine Normochromic normocytic anemia Expected: 12/26/2024 (Approximate), Expires: 12/26/2025 [facility] Comment on above: Expected: 12/26/2024 (Approximate), Expi res: 12/26/2025 Start: 12-26-2024 End: 12-26-2025 Thyrotropin [Units/volume] in Serum or Plasma TSH Lab Routine Normochromic normocytic anemia Expected: 12/26/2024 (Approximate), Expires: 12/26/2025 [facility] Comment on above: Expected: 12/26/2024 (Approximate), Expi res: 12/26/2025 Start: 12-26-2024 End: 12-26-2025 Thyroxine (T4) free [Mass/volume] in Serum or Plasma T4, free Lab Routine Normochromic normocytic anemia Expected: 12/26/2024 (Approximate), Expires: 12/26/2025 [facility] Comment on above: Expected: 12/26/2024 (Approximate), Expi res: 12/26/2025 Start: 12-26-2024 End: 12-26-2025 Triiodothyronine (T3) Free [Mass/volume] in Serum or Plasma T3, free Lab Routine Normochromic normocytic anemia Expected: 12/26/2024 (Approximate), Expires: 12/26/2025 [facility] Comment on above: Expected: 12/26/2024 (Approximate), Expi res: 12/26/2025 Start: 12-22-2024 End: 12-22-2025 CBC W Auto Differential panel - Blood CBC auto differential Lab Routine Essential hypertension Expected: 12/22/2024 (Approximate), Expires: 12/22/2025 [facility] [employer] [facility] Work Phone: Comment on above: Expected: 12/22/2024 (Approximate), Expi res: 12/22/2025 Start: 12-22-2024 End: 12-22-2025 Comprehensive metabolic 1998 panel - Serum or Plasma Comprehensive metabolic panel Lab Routine Essential hypertension Expected: 12/22/2024 (Approximate), Expires: 12/22/2025 [facility] [employer] Comment on above: Expected: 12/22/2024 (Approximate), Expi res: 12/22/2025 Start: 12-22-2024 End: 12-22-2025 Magnesium [Mass/volume] in Serum or Plasma Magnesium Lab Routine Irregular heart rhythm Expected: 12/22/2024 (Approximate), Expires: 12/22/2025 [facility] [employer] Comment on above: Expected: 12/22/2024 (Approximate), Expi res: 12/22/2025 Start: 12-22-2024 End: 12-22-2024 Patient encounter procedure 12/22/2024 1:30 PM EST Office Visit [facility] [place] [address] [place] [address] Wayne Conde DO [address] [place] [address] [place] [address] [facility] Start: 11-07-2024 Glaucoma screening Diabetes: Retinopathy Screening [facility] Start: 09-22-2024 End: 09-22-2025 CBC W Auto Differential panel - Blood CBC auto differential Lab Routine Essential hypertension Expected: 09/22/2024 (Approximate), Expires: 09/22/2025 [facility] [employer] [facility] Work Phone: Comment on above: Expected: 09/22/2024 (Approximate), Expi res: 09/22/2025 Start: 09-22-2024 End: 09-22-2025 Comprehensive metabolic 1998 panel - Serum or Plasma Comprehensive metabolic panel Lab Routine Essential hypertension Expected: 09/22/2024 (Approximate), Expires: 09/22/2025 [facility] Comment on above: Expected: 09/22/2024 (Approximate), Expi res: 09/22/2025 Start: 09-22-2024 End: 09-22-2025 Lipid 1996 panel - Serum or Plasma Lipid panel Lab Routine Hypercholesterolemia Expected: 09/22/2024 (Approximate), Expires: 09/22/2025 [facility] Comment on above: Expected: 09/22/2024 (Approximate), Expi res: 09/22/2025 Start: 09-22-2024 End: 09-22-2024 Patient encounter procedure [facility] Start: 07-25-2024 COVID-19 Vaccine ( season) COVID-19 Vaccine ( season) [facility] Start: 07-25-2024 COVID-19 Vaccine ( season) COVID-19 Vaccine ( season) [facility] Start: 07-25-2024 Influenza vaccination Influenza Vaccine (#1) [facility] Start: 05-26-2024 End: 05-26-2024 Patient encounter procedure 05/26/2024 3:00 PM EDT Office Visit [facility] [address] [place] [address] Wayne Conde, [address] [place] [place] [address] [facility] Start: 05-12-2024 End: 05-12-2024 Patient encounter procedure 05/12/2024 3:00 PM EDT Office Visit [facility] [address] [place] [address] Wayne Conde, DO [address] [place] [address] [facility] Start: 04-09-2024 Creatinine measurement Creatinine Level [facility] Start: 04-09-2024 Potassium measurement Potassium Level [facility] Start: 04-09-2024 Thyroid stimulating hormone measurement TSH Level [facility] Start: 02-04-2024 End: 02-04-2024 Patient encounter procedure 02/04/2024 2:30 PM EDT Office Visit [facility] [address] [place] [address] Wayne Conde, [address] [place] [address] [facility] Start: 01-15-2024 Creatinine measurement Creatinine Level [facility] Start: 01-15-2024 Potassium measurement Potassium Level [facility] Start: 01-15-2024 Thyroid stimulating hormone measurement TSH Level [facility] Start: 10-23-2023 End: 10-23-2023 Patient encounter procedure [facility] Start: 07-25-2023 COVID-19 Vaccine ( season) COVID-19 Vaccine () [facility] Start: 07-25-2023 Influenza vaccination [facility] Start: 07-17-2023 End: 07-17-2023 Patient encounter procedure 07/17/2023 2:00 PM EDT Office Visit [facility] [address] [place] [address] Wayne Conde DO [address] [place], [place] [id number] [facility] Start: 07-11-2023 Creatinine measurement Creatinine Level [facility] Start: 07-11-2023 Lipid panel Lipid Panel [facility] Start: 07-11-2023 Potassium measurement Potassium Level [facility] Start: 07-11-2023 Thyroid stimulating hormone measurement TSH Level [facility] Start: 04-10-2023 End: 04-10-2023 Patient encounter procedure 04/10/2023 Office Visit [facility] Wayne Potter, DO [address] [place] [address] [facility] Start: 04-09-2023 End: 04-09-2023 Patient encounter procedure 04/09/2023 Office Visit [facility] Wayne Conde Abbey, DO [address] [place] [address] [facility] Start: 01-09-2023 End: 01-09-2024 CBC W Auto Differential panel - Blood CBC auto differential Lab Routine Essential hypertension Expected: 01/09/2023 (Approximate), Expires: 01/09/2024 [facility] Work Phone: Comment on above: Expected: 01/09/2023 (Approximate), Expi res: 01/09/2024 Start: 01-09-2023 End: 01-09-2024 Comprehensive metabolic 1998 panel - Serum or Plasma Comprehensive metabolic panel Lab Routine Essential hypertension Expected: 01/09/2023 (Approximate), Expires: 01/09/2024 [facility] Comment on above: Expected: 01/09/2023 (Approximate), Expi res: 01/09/2024 Start: 01-09-2023 End: 01-09-2024 Thyrotropin [Units/volume] in Serum or Plasma TSH Lab Routine Acquired hypothyroidism Expected: 01/09/2023 (Approximate), Expires: 01/09/2024 [facility] Comment on above: Expected: 01/09/2023 (Approximate), Expi res: 01/09/2024 Start: 07-25-2022 Influenza vaccination Influenza Vaccine (#1) [facility] Start: 03-09-2022 Medicare Annual Wellness (AWV) Medicare Annual Wellness (AWV) [facility] Start: 02-08-2022 Annual Wellness Visit (AWV) Annual Wellness Visit (AWV) [facility] Work Phone: Start: 02-07-2022 Lipid panel Lipid screen [facility] Work Phone: Start: 02-07-2022 TSH Qn TSH testing [facility] Work Phone: Start: 12-20-2021 COVID-19 Vaccine (4 - Booster for Moderna series) COVID-19 Vaccine (4 - Booster for Moderna series) [facility] Start: 12-20-2021 COVID-19 Vaccine (4 - Moderna series) COVID-19 Vaccine (4 - Moderna series) [facility] Start: 08-06-2021 End: 08-06-2021 Office Visit 08/06/2021 Office Visit [facility] Wayne Conde DO [address] [place], [place] [id number] [facility] Start: 07-01-2020 Lipid screen Lipid screen [facility] Work Phone: Start: 07-01-2020 TSH testing TSH testing [facility] Work Phone: Start: 02-03-2020 End: 02-03-2020 Patient encounter procedure 02/03/2020 Office Visit [facility] Wayne Conde, [address], [place] [id number] [facility] Start: 11-10-2019 End: 11-10-2019 Nursing evaluation of patient and report 11/10/[address] [facility] Start: 07-25-2019 Influenza vaccination Flu vaccine (#1) [facility] Work Phone: Start: 05-13-2019 Annual Wellness Visit (AWV) Annual Wellness Visit (AWV) [facility] Work Phone: Start: 10-11-2016 Pneumococcal Vaccine: 65+ Years (2 - PPSV23 if available, else PCV20) Pneumococcal Vaccine: 65+ Years (2 - PPSV23 if available, else PCV20) [facility] Start: 01-13-2015 Shingles Vaccine (2 of 3) Shingles Vaccine (2 of 3) [facility] Work Phone: Start: 01-13-2015 Zoster Vaccines (2 of 3) Zoster Vaccines (2 of 3) [facility] Start: 2014 RSV Immunization for Adults (1 - 1-dose 75+ series) RSV Immunization for Adults (1 - 1-dose 75+ series) [facility] Start: 1999 Hepatitis B Vaccines (1 of 3 - Risk 3-dose series) Hepatitis B Vaccines (1 of 3 - Risk 3-dose series) [facility] Start: 1999 RSV Immunization aged 60 or older (1 - 1-dose 60+ series) RSV Immunization aged 60 or older (1 - 1-dose 60+ series) [facility] Start: 1958 DTaP/Tdap/Td vaccine (1 - Tdap) DTaP/Tdap/Td vaccine (1 - Tdap) [facility] Work Phone: Start: 1958 DTaP/Tdap/Td Vaccines (1 - Tdap) DTaP/Tdap/Td Vaccines (1 - Tdap) [facility] Start: 1958 Urine screening for protein Diabetes: Urine Protein Screening [facility] Start: 1957 Diabetes mellitus screening Diabetes Screening [facility] Start: 1957 Diabetes: Urine Albumin-Creatinine Ratio for Kidney Health Diabetes: Urine Albumin-Creatinine Ratio for Kidney Health [facility] Start: 1951 Depression Screening Depression Screening [facility] Start: 1950 DTaP/Tdap/Td vaccine (1 - Tdap) DTaP/Tdap/Td vaccine (1 - Tdap) [facility] Work Phone: Start: 1949 Diabetic foot examination Diabetes: Foot Exam [facility] Start: 1949 Preventive dental service Diabetes: Dental Exam [facility] Start: 1939 Echocardiography Echocardiogram [facility] Start: 1939 Hemoglobin A1c measurement Diabetes: Hemoglobin A1C [facility] Start: 1939 Hepatitis B Vaccines (1 of 3 - 3-dose series) Hepatitis B Vaccines (1 of 3 - 3-dose series) [facility] Start: 1939 Medicare Annual Wellness (AWV) Medicare Annual Wellness (AWV) [facility] Start: 1939 Screening for osteoporosis Bone Density Scan [facility] [employer] Patient Education Chest Lung pro blems Surg Dx COPD Meds ED COPD Flare [facility] Work Phone: Patient referral [facility] Work Phone: Protein [Mass/volume ] in Serum or Plasma Protein, total Lab Routine Normochromic normocytic anemia Ordered: 12/26/2024 [employer] Comment on above: Ordered: 12/26/2024 Protein, Total and Protein Electrophoresis Protein, Total and Protein Electrophoresis Lab Routine Normochromic normocytic anemia Ordered: 12/26/2024 [employer] Comment on above: Ordered: 12/26/2024 Serum Electrophoresis Serum Elec trophoresis Lab Routine Normochromic normocytic anemia Ordered: 12/26/2024 [facility] [employer] Comment on above: Ordered: 12/26/2024 End: 02-26-2021 VL DUP CAROTID BILATERAL VL DUP CAROTID BILATERAL Imaging Routine Once for 1 Occurrences starting 02/26/2021 until 02/26/2021 [employer] Work Phone: Comment on above: Once for 1 Occurrences starting 02/27/20 until 02/26/2021 VL DUP CAROTID BILATERAL VL DUP CAROTID BILATERAL Imaging Routine 02/26/2021 3:32 PM EDT [facility] Work Phone: Immunizations Immunization Date Immunization Notes Care Provider [facility] 09-22-2024 Seasonal trivalent influenza vaccine, adjuvanted, preservative free Wayne Conde DO Work Phone: [facility] [employer] 09-22-2024 influenza virus vacc ine, unspecified formulation Wayne Murrelljamarirosina DO Work Phone: [facility] [employer] 10-23-2023 influenza, injectabl e, quadrivalent, preservative free Frederic Garcia MD Work Phone: [facility] 10-23-2023 Influenza, Seasonal, Quadrivalent, Adjuvanted Don Wasserman MD Work Phone: [facility] [employer] 10-23-2023 influenza virus vacc ine, unspecified formulation Wayne Conde DO Work Phone: [facility] [employer] 2022 Covid Moderna Bivale nt Booster Frederic Garcia MD Work Phone: [facility] 2022 Influenza, High-dose Seasonal, Quadrivalent, Preservative Free Wayne Murrelllla DO Work Phone: [facility] 10-25-2021 Covid (Moderna) Frederic Garcia MD Work Phone: [facility] 09-26-2021 Influenza, High-dose Seasonal, Quadrivalent, Preservative Free Wayne Murrelllla DO Work Phone: [facility] 09-26-2021 influenza virus vacc ine, unspecified formulation Wayne Galarzaa DO Work Phone: [facility] 01-18-2021 Covid (Moderna) Frederic Garcia MD Work Phone: [facility] 12-21-2020 Covid (Moderna) Frederic Garcia MD Work Phone: [facility] 11-08-2020 Influenza, High-dose , Quadv, 65 yrs +, IM (Fluzone) Wayne Murrellrosina [facility] 11-10-2019 influenza, high dose seasonal, preservative-free Wayne Penemarie K Murphyrosina [facility] 11-10-2019 Influenza, High-dose Seasonal, Quadrivalent, Preservative Free Wayne Murrelllla DO Work Phone: [facility] 09-11-2018 influenza, injectabl e, quadrivalent, preservative free Wayne Murrelllla DO Work Phone: [facility] 10-03-2016 influenza virus vacc ine, unspecified formulation Wayne Murrelllla DO Work Phone: [facility] 10-03-2016 influenza, seasonal, injectable Wayne Galarzaa DO Work Phone: [facility] 10-11-2015 pneumococcal conjuga te vaccine, 13 valent Wayne Galarzaa DO Work Phone: [facility] Work Phone: 11-18-2014 zoster vaccine, live Wayne Conde DO Work Phone: [facility] 09-24-2013 influenza virus vacc ine, whole virus Wayne Murrelllla DO Work Phone: [facility] 09-24-2013 influenza, injectabl e, quadrivalent, preservative free Frederic Garcia MD Work Phone: [facility] 09-22-2009 influenza virus vacc ine, whole virus Wayne Murrelllla DO Work Phone: [facility] 09-22-2009 influenza, injectabl e, quadrivalent, preservative free Frederic Garcia MD Work Phone: [facility] 09-14-2005 pneumococcal Conjuga te, unspecified formulation Wayne Murrelllla DO Work Phone: [facility] 09-14-2005 pneumococcal polysaccharide vaccine, 23 valent Wayne Murrelllla DO Work Phone: [facility] 09-14-2005 pneumococcal vaccine , unspecified formulation Frederic Garcia MD Work Phone: [facility] 07-25-2005 pneumococcal Conjuga te, unspecified formulation Wayne Murrelllla DO Work Phone: [facility] 07-25-2005 pneumococcal polysaccharide vaccine, 23 valent Wayne Murrelllla DO Work Phone: [facility] Work Phone: 07-25-2005 pneumococcal vaccine , unspecified formulation Frederic Garcia MD Work Phone: [facility] Payers Date Payer Category Payer Self-pay 2020 Medicaid [id number] 2018 Medicaid [id number] 2018 Medicaid MEDICAID [facility] DEPT OF JOB xxxxxxxxxxxx 2018-Present [phone] [address] [place] [address] xxxxxxxxxxxx [id number] 2015 Medicare xxxxxxxxxxx [id number] 2005 Commercial Managed C are - HMO [employer] [id number] 2005 Private Health Insurance DAVIAN BERNAL [id number] 2005-Present [facility] [address] [place] [address] [facility] [id number] 2005 Private Health Insurance [id number] 2004 Medicare [id number] 2004 Medicare [id number] Medicare [id number] Unknown [id number] .462 Unknown [id number] .462 Unknown [id number] .462 Unknown [id number] .462 Unknown [id number] .462 Unknown [id number] .462 Unknown [id number] .462 Unknown [id number] 2.16.840.1.179871.3.579.2 .462 Unknown [id number] 2.16.840.1.883594.3.579.2 .462 Unknown [id number] 2.16.840.1.438405.3.579.2 .462 Unknown [id number] 2.16.840.1.295740.3.579.2 .462 Unknown [id number] 2.16.840.1.552331.3.579.2 .462 Unknown [id number] 2.16.840.1.977082.3.579.2 .462 Unknown [id number] 2.16.840.1.484770.3.579.2 .462 Unknown [id number] [id number] .462 Unknown [id number] [id number] .462 Unknown [id number] .462 Unknown [id number] .462 Unknown [id number] .462 Social History Date Type Detail Facility Start: 02-07-2021 End: 05-26-2024 Tobacco smoking status [facility] Former smoker [employer] Phone: End: 06-08-1990 History of tobacco use Current smoker [employer] Phone: Start: 02-07-2021 End: 05-26-2024 Tobacco use and exposure Never used [employer] Phone: Start: 02-07-2021 End: 12-22-2024 Alcohol intake Current non-drinker of alcohol (finding) [employer] Work Phone: Start: 03-25-2019 History SDOH Alcohol Frequency 1 [employer] Work Phone: Start: 03-25-2019 History SDOH Social Connections Phone 4 [employer] Work Phone: Start: 03-25-2019 History SDOH Social Connections Get Together 5 [employer] Work Phone: Start: 03-25-2019 History SDOH [facility] Religious 2 [employer] Work Phone: Start: 03-25-2019 History SDOH [facility] Living 3 [employer] Work Phone: Start: 03-25-2019 History SDOH Physica l Activity [facility]W [facility] Work Phone: Start: 1940 Sex Assigned At Not on file [employer] Work Phone: End: 06-08-1990 History of tobacco use Cigarette Smoker [facility] [employer] Start: 01-09-2023 End: 01-16-2024 Alcohol intake [facility] Start: 04-09-2023 End: 01-16-2024 Tobacco use panel [facility] Start: 12-30-2022 End: 07-17-2023 Exposure to SARS-CoV-2 (event) Not sure [facility] Has the [employer], [employer], oil, or water [employer] threatened to shut off services in your home in past 12Mo No [facility] Do you belong to any clubs or organizations such as jew groups, unions, fraternal or athletic groups, or school groups? Yes [facility] Are you now , , , , never or living with a partner? [facility] How often to you hav e a drink containing alcohol? Never [facility] How many standard dr inks containing alcohol do you have on a typical day? Patient does not drink [facility] Do you feel stress - tense, restless, nervous, or anxious, or unable to sleep at night because your mind is troubled all the time - these days [OSQ] Not at all [facility] (I/We) worried wheth er (my/our) food would run out before (I/we) got money to buy more. Never true [facility] Start: 06-24-2022 End: 02-23-2025 Sex Female (finding) [facility] Start: 1940 Sex Assigned At Female W [facility] Goals Date Patient Goal Desired Activity /State Comment on above: Formatting of this n ote might be different from the original. Stay healthy Barriers: none Plan for overcoming my barriers: N/A Confidence: 10 Anticipated Goal Completion Date: 07/19/2020 Stay healthy Barriers: none Plan for overcoming my barriers: N/A Confidence: 06/02 Anticipated Goal Completion Date: 07/19/2020 Functional Status Date Assessment Result Facility 01-12-2025 Functional status Bathroom Privilege [facility] Work Phone: 01-04-2025 Functional status Ambulates;[facility] Work Phone: Mental Status Date Assessment Result Facility 01-12-2025 Cognitive function Voice/Name [facility] Work Phone: 01-04-2025 Cognitive function Voice/Name [facility] Work Phone: Clinical Notes 01-09-2023 to 06-07-2025 Telephone Encounter - Dana Landis - 06/07/2025 11:01 AM EDTTelephone Encounter - Dana Landis - 06/07/2025 11:01 AM EDTTelephone Encounter - Mellisa Santizo MA - 05/26/2025 12:23 PM EDT Note Date & Type Note Facility 06-07-2025 Telephone encounter Note Form atting of this note might be different from the original. Ordering provider: Elton Date of last office visit: 12/22 Date of next office visit: 07/18 Updated/Validated preferred pharmacy: Yes [address] Patient instructed to contact the pharmacy prior to picking up the medication: Yes (1) Medication name: metoprolol tartrate (Lopressor) Medication dosage: 50 mg (Miligrams Monthly quantity needed: 60 How many day supply requestin days Medication route: oral (PO) Medication administration time(s): 2 times a day (BID) If taking medication PRN, reason for taking medication: N/A If this is a controlled substance do you receive this or any other controlled medication from any other doctor or facility: N/A Date of last refill (see medication tab): 09/22/24 (2) Medication name: mirtazapine (Remeron) Medication dosage: 7.5 mg (Miligrams Monthly quantity needed: 30 How many day supply requestin days Medication route: oral (PO) Medication administration time(s): bedtime (HS) If taking medication PRN, reason for taking medication: N/A If this is a controlled substance do you receive this or any other controlled medication from any other doctor or facility: N/A Date of last refill (see medication tab): 09/22/24 [facility] 06-07-2025 Miscellaneous Notes Formattin g of this note might be different from the original. Ordering provider: Elton Date of last office visit: 12/22 Date of next office visit: 07/18 Updated/Validated preferred pharmacy: Yes [facility] Patient instructed to contact the pharmacy prior to picking up the medication: Yes (1) Medication name: metoprolol tartrate (Lopressor) Medication dosage: 50 mg (Miligrams Monthly quantity needed: 60 How many day supply requestin days Medication route: oral (PO) Medication administration time(s): 2 times a day (BID) If taking medication PRN, reason for taking medication: N/A If this is a controlled substance do you receive this or any other controlled medication from any other doctor or facility: N/A Date of last refill (see medication tab): 09/22/24 (2) Medication name: mirtazapine (Remeron) Medication dosage: 7.5 mg (Miligrams Monthly quantity needed: 30 How many day supply requestin days Medication route: oral (PO) Medication administration time(s): bedtime (HS) If taking medication PRN, reason for taking medication: N/A If this is a controlled substance do you receive this or any other controlled medication from any other doctor or facility: N/A Date of last refill (see medication tab): 09/22/24 documented in this encounter [facility] 05-26-2025 Telephone encounter Note Form atting of this note is different from the original. Recent Visits Date Type Provider Dept 12/22/24 Office Visit Wayne Conde, DO [facility] 09/22/24 Office Visit Wayne Conde, DO [facility] 05/26/24 Office Visit Wayne Conde DO [facility] Showing recent visits within past 365 days and meeting all other requirements Future Appointments Date Type Provider Dept 07/18/25 Appointment Wayne Conde DO [facility] Showing future appointments within next 90 days and meeting all other requirements Requested Prescriptions Pending Prescriptions Disp Refills Aspirin Low Dose 81 MG EC tablet [Pharmacy Med Name: Aspirin Low Dose 81 MG Tablet delayed release] 31 tablet 11 Sig: TAKE 1 TABLET BY MOUTH EVERY MORNING Provider: Wayne Conde DO Verified pharmacy: yes Verified day(s) supplied: yes Verified refill(s) needed (previous prescription showing no refills in chart): Yes Have you received any controlled medications from any other provider? N/A Overdue for visit: No If yes - patient scheduled? Yes Most recent labs completed in chart? N/A [facility] 05-26-2025 Miscellaneous Notes Formattin g of this note is different from the original. Recent Visits Date Type Provider Dept 12/22/24 Office Visit Wayne Conde, DO [facility] 09/22/24 Office Visit Wayne Conde DO [facility] 05/26/24 Office Visit Wayne Conde DO [facility] Showing recent visits within past 365 days and meeting all other requirements Future Appointments Date Type Provider Dept 07/18/25 Appointment Wayne CondeDO [facility] Showing future appointments within next 90 days and meeting all other requirements Requested Prescriptions Pending Prescriptions Disp Refills Aspirin Low Dose 81 MG EC tablet [Pharmacy Med Name: Aspirin Low Dose 81 MG Tablet delayed release] 31 tablet 11 Sig: TAKE 1 TABLET BY MOUTH EVERY MORNING Provider: Wayne Aroldo Petrilla, DO Verified pharmacy: yes Verified day(s) supplied: yes Verified refill(s) needed (previous prescription showing no refills in chart): Yes Have you received any controlled medications from any other provider? N/A Overdue for visit: No If yes - patient scheduled? Yes Most recent labs completed in chart? N/A documented in this encounter [facility] 05-17-2025 Telephone encounter Note Form atting of this note might be different from the original. We have no availability before 07/18/25. [facility] 05-17-2025 Miscellaneous Notes Formattin g of this note might be different from the original. We have no availability before 07/18/25. Spoke with pharmacy went over med list and these are the med's she needs new scripts on. Rx loaded Name of caller: Mary Contact phone number: [phone] Relationship to Patient: Direction Home Provider: Elton Practice: [facility] Chief Complaint/Reason for Call: [facility] provider needs to call pharmacy [address] to verify medication list and and refill them for more then 2 weeks. Please advise Mary for further questions. Best time of day caller can be reached: any Patient advised that office/PCP has 24-48 business hours to return their call: Yes documented in this encounter [facility] 05-03-2025 Telephone encounter Note Form atting of this note might be different from the original. Spoke with pharmacy went over med list and these are the med's she needs new scripts on. Rx loaded [facility] 05-03-2025 Miscellaneous Notes Formattin g of this note might be different from the original. Spoke with pharmacy went over med list and these are the med's she needs new scripts on. Rx loaded Name of caller: Mary Contact phone number: [phone] Relationship to Patient: Direction Home Provider: Elton Practice: [facility] Chief Complaint/Reason for Call: [facility] provider needs to call pharmacy [address] to verify medication list and and refill them for more then 2 weeks. Please advise Mary for further questions. Best time of day caller can be reached: any Patient advised that office/PCP has 24-48 business hours to return their call: Yes documented in this encounter [facility] 05-03-2025 Telephone encounter Note Form atting of this note might be different from the original. Name of caller: Mary Contact phone number: [phone] Relationship to Patient: Direction [place] Provider: Elton Practice: [facility] Chief Complaint/Reason for Call: [facility] provider needs to call pharmacy [address] to verify medication list and and refill them for more then 2 weeks. Please advise Mary for further questions. Best time of day caller can be reached: any Patient advised that office/PCP has 24-48 business hours to return their call: Yes [facility] 05-03-2025 Telephone encounter Note Form atting of this note might be different from the original. Spoke with Kimberly and relayed message from provider. Patient will keep her appointment in June. [facility] 05-03-2025 Miscellaneous Notes Formattin g of this note might be different from the original. Spoke with Kimberly and relayed message from provider. Patient will keep her appointment in June. KAYDEN full PCP does not have anything sooner. Schedule next available with PCP Name of Caller: kimberly Contact Reason for Appointment: Kimberly is calling from [facility] to get pt scheduled for a trans care appt with pcp. Pcp's soonest available was in June but pt is needing seen within the next 2 weeks . Please advise. Office Name: [facility] Medication Refills need, if any: / Medication Name: / documented in this encounter [facility] 05-02-2025 Telephone encounter Note Form atting of this note might be different from the original. KAYDEN full PCP does not have anything sooner. Schedule next available with PCP [facility] 05-02-2025 Telephone encounter Note Form atting of this note might be different from the original. See other TE [facility] 05-02-2025 Miscellaneous Notes Formattin g of this note might be different from the original. See other TE Name of caller: Kimberly Contact phone number: [phone] Relationship to Patient: Provider: Dr Conde Practice: [facility] Chief Complaint/Reason for Call: RAJ appt need to scheduled -no longer than 14 days from discharge Best time of day caller can be reached: Patient advised that office/PCP has 24-48 business hours to return their call: No documented in this encounter [facility] 05-02-2025 Telephone encounter Note Form atting of this note might be different from the original. Name of caller: Kimberly Contact phone number: [phone] Relationship to Patient: Provider: Dr Conde Practice: [facility] Chief Complaint/Reason for Call: RAJ appt need to scheduled -no longer than 14 days from discharge Best time of day caller can be reached: Patient advised that office/PCP has 24-48 business hours to return their call: No [facility] 04-29-2025 Telephone encounter Note Form atting of this note might be different from the original. Name of Caller: kimberly Contact Reason for Appointment: Kimberly is calling from [facility] to get pt scheduled for a trans care appt with pcp. Pcp's soonest available was in June but pt is needing seen within the next 2 weeks . Please advise. Office Name: [facility] Medication Refills need, if any: / Medication Name: / [facility] 04-29-2025 Telephone encounter Note Form atting of this note might be different from the original. 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 Conde Practice: [facility] Chief Complaint/Reason for Call: Kevin states that they received orders from Patient's PCP to follow for home jewel and they called Patient and Patient does not want these services so they are cancelling this referral. FYI Best time of day caller can be reached: Any Patient advised that office/PCP has 24-48 business hours to return their call: No T [facility] 04-29-2025 Miscellaneous Notes Formattin g of this note might be different from the original. 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 Conde Practice: [facility] Chief Complaint/Reason for Call: Kevin states that they received orders from Patient's PCP to follow for home jewel and they called Patient and Patient does not want these services so they are cancelling this referral. FYI Best time of day caller can be reached: Any Patient advised that office/PCP has 24-48 business hours to return their call: No documented in this encounter [facility] 02-16-2025 Evaluation note Diagnosis Onset Date Resolution Lung nodule acute February 16, 025 9:09am Alzheimer's dementia chronic Alistair h 2024 9:09am COPD (chronic obstructive pulmonary disease) chronic February 16, 2025 9:09am Hypoxia chronic February 16 9:09am [facility] Work Phone: 1(473) 220-892303-26-2025 Evaluation note* Diagnosis Onset Date Resolution Status Admit Date Lung nodule acute February 16, 025 9:09am Alzheimer's dementia chronic Alistair h 2024 9:09am COPD (chronic obstructive pulmonary disease) chronic February 16 9:09am Hypoxia chronic February 16 9:09am Coronary artery disease acute A pril 2024 9:31am Dementia acute March 09 9:31am HLD (hyperlipidemia) acute Apri l 2024 9:31am Hypertension chronic March 09, 2025 9:31am [facility] Work Phone: 1(979) 761-323402-19-2025 [facility] Medical Records Department [address] [place] [id number] Discharge Summary 01/12/25 1133 MR#: [id number] Acct: [id number] Name: FARZANA HERRON Rep #: [id number] : 1940 84 From: Tan Triplett MD PCP: Dr. Wayne Conde DO Status:DIS [facility]ERSON [facility] Prov[facility] Date of Admission: 01/09/25 Date of Discharge: 01/12/25 Primary Care Physician: Dr. Wayne Conde DO Reason For Visit: HYPOXIA RECURRENT FALLS DEBILITY Diagnosis Discharge Diagnosis (1) Fall: Status: Acute Code(s): W19.XXXA - Unspecified fall, initial encounter Qualifiers: Encounter type: initial encounter Qualified Code(s): W19.XXXA - Unspecified fall, initial encounter (2) Closed fracture of humerus: Status: Inactive Code(s): S42.309A - Unspecified fracture of shaft of humerus, unspecified arm, initial encounter for closed fracture Qualifiers: Encounter type: subsequent encounter Fracture alignment: nondisplaced Fracture healing: w ith routine healing Fracture morphology: transverse Humerus Location: shaft Laterality: left Q ualified Code(s): S42.325D - Nondisplaced transverse fracture of shaft of humerus, left arm, subsequent encounter for fracture with routine healing Plan This is a 84-year-old female being admitted for acute debility due to left humerus fracture. Acute debility: * PT OT evaluate and treat * CM/SW to assist w disposition. 01/10: Pre-CERT not available yet 01/11: manager of internal audit and social studies teacher working on pre-CERT. Denied by 2 nursing homes. 01/12: She got the acceptance facility therefore getting discharged. Tylenol ordered 1 g Q8 hourly as needed for pain. Pain is well-controlled. Left proximal humerus fracture * subsequent visit * SHERRIE Williamson. Follow up with Dr. Ramos in 1 week. 01/12: Continue PT and OT. Follow-up with Dr. Ramos in 1 week. Chronic conditions: * HLP: continue statin * dementia: continue donepezil * hypothyroidism: continue levothyroxine * CAD: stable. continue isosorbide, asa, clopidogrel VTE prophylaxis: SCDs. Discharge medication reconciliation done. Discharge follow-up instructions completed. Discharge process discussed with the patient and all questions were answered to patient's satisfaction. Follow with PCP in 1 to 2 weeks Total time spent, exact 35 minutes on discharge meds reconciliation, examination, coordination of care with nurses and ancillary staff, review of imaging and blood test and discussion with the patient on follow-up instructions. Medications at Discharge Home Medications aspirin 81 mg tablet,delayed release 81 mg PO DAILY Heart health 01/02/25 atorvastatin 10 mg tablet 80 mg PO QHS cholestrol 01/02/25 calcium 500 mg (as carbonate)-vitamin D3 5 mcg (200 unit) tablet (Oyster Shell Calcium-Vitamin D3) 2 tab PO QHS supplement 01/02/25 clopidogrel 75 mg tablet 75 mg PO DAILY Blood thinner 01/02/25 donepezil 5 mg tablet 5 mg PO QHS BP 01/02/25 ergocalciferol (vitamin D2) 1,250 mcg (50,000 unit) capsule 1,250 mcg PO FR supplement 01/02/25 gabapentin 300 mg capsule 300 mg PO BID 01/02/25 isosorbide mononitrate 60 mg tablet,extended release 24 hr 60 mg PO DAILY Heart failure 01/02/25 levothyroxine 50 mcg tablet 50 mcg PO DAILY 01/02/25 losartan 25 mg tablet 25 mg PO DAILY BP 01/02/25 metoprolol succinate 50 mg tablet,extended release 24 hr 50 mg PO BID 01/02/25 mirtazapine 7.5 mg tablet 7.5 mg PO QHS 01/02/25 omega 2-lxn-vtn-fish oil 300 mg-1,000 mg capsule (Fish Oil) 3 cap PO DAILY 01/02/25 pantoprazole 40 mg tablet,delayed release 40 mg PO QHS GERD 01/02/25 cyanocobalamin (vitamin B-12) 1,000 mcg tablet 1,000 mcg PO DAILY 01/04/25 guaifenesin 600 mg tablet, extended release 12 hr 600 mg PO BID 01/04/25 acetaminophen 500 mg tablet 1,000 mg (2 x 500 mg) PO Q8 PRN Pain 1-5/10 or Fever #10 tabs 01/12/25 Physical Exam Narrative The patient has accepting facility therefore getting discharged. She is moving her bowels. Pain is under control. Physical exam General: Alert, Oriented x3, Cooperative HEENT: Atraumatic, PERRLA, EOMI, Normocephalic Oral: No Gingival or Mucosal Lesions/ Ulcerations Neck: Supple, No JVD, Negative Carotid Bruits Chest wall/Lungs: Air entry diminished in bilateral lung bases. No crepitation/rhonchi Cardiovascular: Regular rate, Regular Rhythm, Normal S1, Normal S2, No M/G/R Abdomen: Bowel Sounds Present, Soft, Non Tender, Non-Distended : No dysuria. No renal angle tenderness. No suprapubic tenderness. Extremities: No edema, Capillary Refill Less than 3 Seconds Skin: No rashes, No breakdown Musculoskeletal: Right humerus mild tenderness and deformity. Patient on sling and swath. No Tenderness to Palpation of other joints or Extremities Neurological: Cranial nerves II-XII grossly intact, DTR 2+/4. No acute focal neurological deficit. Psych/Mental Status: Flat affect Javier (more content not included)...[facility]02-11-2025 Note [facility] Medical Records Department [address] [place] [address] Discharge Summary 01/04/25 1538 MR#: [id number] Acct: [id number] Name: FARZANA HERRON Rep #: [id number] : 1940 84 From: Priyank Bauer DO PCP: Dr. Wayne Conde, DO Status:DIS PETERSON [facility] Prov[facility] Date of Admission: 01/02/25 Date of Discharge: 01/04/25 Primary Care Physician: Dr. Wayne Conde DO Reason For Visit: LEFT SHOULDER PAIN CONCERN FOR FRACTURE Diagnosis Discharge Diagnosis (1) Closed fracture of humerus: Status: Acute Code(s): S42.309A - Unspecified fracture of shaft of humerus, unspecified arm, initial encounter for closed fracture Plan 1. Acute debility secondary to fracture of the proximal left humerus-PT and OT will continue to work with the patient, again patient's family want to take the patient home tomorrow, I will talk with case management concerning this. I talked briefly with orthopedic surgery by phone tonight (Dr. Ramos) he does not need to see the patient while she is hospitalized and will follow-up with her in the office as an outpatient. He recommended repeating x-rays in 1- 2 weeks and using a simple sling. #2 essential hypertension-patient will remain on her current medications #3 dementia-complicates care, management, recovery, and prognosis I will have nursing confirm her medications Total clinical time spent by myself addressing the patient's medical issues, reviewing her data, and collaborating with patient's care team: 35 minutes Medications at Discharge Home Medications aspirin 81 mg tablet,delayed release 81 mg PO DAILY Heart health 01/02/25 atorvastatin 10 mg tablet 80 mg PO QHS cholestrol 01/02/25 calcium 500 mg (as carbonate)-vitamin D3 5 mcg (200 unit) tablet (Oyster Shell Calcium-Vitamin D3) 2 tab PO QHS supplement 01/02/25 clopidogrel 75 mg tablet 75 mg PO DAILY Blood thinner 01/02/25 donepezil 5 mg tablet 5 mg PO QHS BP 01/02/25 ergocalciferol (vitamin D2) 1,250 mcg (50,000 unit) capsule 1,250 mcg PO FR supplement 01/02/25 gabapentin 300 mg capsule 300 mg PO BID 01/02/25 isosorbide mononitrate 60 mg tablet,extended release 24 hr 60 mg PO DAILY Heart failure 01/02/25 levothyroxine 50 mcg tablet 50 mcg PO DAILY 01/02/25 losartan 25 mg tablet 25 mg PO DAILY BP 01/02/25 metoprolol succinate 50 mg tablet,extended release 24 hr 50 mg PO BID 01/02/25 mirtazapine 7.5 mg tablet 7.5 mg PO QHS 01/02/25 omega 4-tmu-rlm-fish oil 300 mg-1,000 mg capsule (Fish Oil) 3 cap PO DAILY 01/02/25 pantoprazole 40 mg tablet,delayed release 40 mg PO QHS GERD 01/02/25 sucralfate 1 gram tablet 1 g PO BIDAC 01/02/25 cyanocobalamin (vitamin B-12) 1,000 mcg tablet 1,000 mcg PO DAILY 01/04/25 guaifenesin 600 mg tablet, extended release 12 hr 600 mg PO BID 01/04/25 Hospital Course Operations None Procedures None Summary of Care Provided Minutes Spent on Discharge: 31 Hospital Course: This 84-year-old white female was seen in the emergency room at [facility] after sustaining a fall at home and injuring her left shoulder, x-rays in the emergency room showed the presence of the proximal left humerus fracture. Patient was placed in observation on [facility] 3 and seen by physical therapy, physical therapy felt that the patient should go to an extended care facility but the patient's family requested that she be discharged home and that they could take care of her. I checked with orthopedic surgery by phone to see if they needed to see the patient in the hospital and they did not feel they needed to, they wanted to see the patient within 1 to 2 weeks after discharge from the hospital. On 01/04/2025, patient was seen and examined:alert and no apparent distress General Appearance: cooperative, well kempt and well developed Orientation / Consciousness: awake, oriented to person and oriented to place HEENT normocephalic, head/scalp atraumatic and moist oral mucous membranes Eyes PERRL, EOMs intact bilaterally and conjunctivae normal Neck supple, no JVD, thyroid normal and no carotid bruits General: trachea midline Resp normal respiratory effort, no retractions, no use of accessory muscles and clear to auscultation bilaterally Auscultation: Negative for rales, rhonchi or wheezes Cardio regular rate, regular rhythm, S1 normal heart sound, S2 normal heart sound, no murmurs, no rub and no gallops GI normal to inspection, nondistended, normoactive bowel sounds, soft to palpation, non-tender and non- distended Extremity no clubbing, cyanosis or edema Extremity Narrative: Patient's left arm is in a sling at the time my examination Skin no rashes or lesions noted General Skin Exam: no breakdown Neuro CN's II-XII intact bilaterally, no focal motor deficits and no sensory deficits noted Sensorium / Orientation: awake, alert, oriented to (more content not included)...[facility]02-10-2025 Telephone encounter Note* Telephone Encounter - Jennifer Jensen MA - 01/03/2025 7:06 AM EST [id number] Miscellaneous Notes* Telephone Encounter - Jennifer Jensen MA - 01/03/2025 7:06 AM EST Rx loaded * Telephone Encounter - Sofia Good - 12/31/2024 1:06 PM EST Medication name: guaiFENesin (Mucinex) 600 MG 12 hr tablet Medication dosage: 600 mg (Miligrams Monthly quantity needed: 120 How many day supply requestin days Medication route: oral (PO) Medication administration time(s): Take 2 tablets (1,200 mg) by mouth 2 times daily If taking medication PRN, reason for taking medication: N/A If this is a controlled substance do you receive this or any other controlled medication from any other doctor or facility: N/A Ordering provider: Elton Date of last office visit: 12-22-24 Date of next office visit: 03-16-25 Date of last refill: (see medication tab): 07-12-24 Updated/Validated preferred pharmacy: Yes Patient instructed to contact the pharmacy prior to picking up the medication: Yes documented in this [facility]02-07-2025 Telephone encounter Note* Telephone Encounter - Sofia Good - 12/31/2024 1:06 PM EST Medication name: guaiFENesin (Mucinex) 600 MG 12 hr tablet Medication dosage: 600 mg (Miligrams Monthly quantity needed: 120 How many day supply requestin days Medication route: oral (PO) Medication administration time(s): Take 2 tablets (1,200 mg) by mouth 2 times daily If taking medication PRN, reason for taking medication: N/A If this is a controlled substance do you receive this or any other controlled medication from any other doctor or facility: N/A Ordering provider: Elton Date of last office visit: 12-22-24 Date of next office visit: 03-16-25 Date of last refill: (see medication tab): 07-12-24 Updated/Validated preferred pharmacy: Yes Patient instructed to contact the pharmacy prior to picking up the medication: Yes [id number] History of Present illness Narrative* Wayne Conde DO - 12/22/2024 1:30 PM EST Images from the original note were not included. [facility] - [address] [facility] [id number] Visit type: Established Patient Reason for Visit: Follow-up (Med Check ) and Fall (Patient has recent falls ) Assessment / Plan: Farzana was seen today for follow-up and fall. Diagnoses and all orders for this visit: Essential hypertension (Primary) Comments: Stable on metoprolol and losartan Orders: - CBC auto differential; Future - Comprehensive metabolic panel; Future - CBC auto differential - Comprehensive metabolic panel Alzheimer's disease, unspecified (CODE) ([facility]) Comments: Stable on Aricept Chronic systolic (congestive) heart failure (HCC) Gastroesophageal reflux disease without esophagitis Chronic bronchitis, unspecified chronic bronchitis type (HCC) Comments: Stable on Spiriva 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, unspecified vessel or lesion type Comments: Stable on Isordil, Plavix aspirin and Lipitor Neuropathy Comments: Stable on gabapentin Hypercholesterolemia Irregular heart rhythm - ECG 12 lead; Future - Magnesium; Future - Magnesium - ECG 12 lead Subjective: Patient ID: Farzana Herron is a 84 y.o. female. HPI patient with history of hypertension, stable heart disease and heart failure with Alzheimer's dementia on gabapentin for chronic back pain and tingling in her legs and feet presents for overall checkup. She has had a good few months. Cerebrally she has been doing well and no change in memory. Her make sure she gets all her meds and she is compliant with taking them. Review of Systems denies recent earache sore throat or cough. No chest pain or shortness of breath.No use of nitro. prefers not to see a neurologist or cardiology. Takes Spiriva for COPD. Nopurulent phlegm PND orthopnea or edema. No heartburn on Protonix. No dysphagia or loss of weight. Bowels are regular. No melena or blood. No dysuria or incontinence. No change in quality of her upper thoracic spine pain. Gabapentin well-tolerated. Allergies Allergen Reactions Codeine Other reaction(s): GI Upset Per patient - unknown reaction Other reaction(s): Blisters Current Outpatient Medications on File Prior to Visit Medication Sig Dispense Refill acetaminophen (Tylenol) 325 MG tablet Take 650 mg by mouth. aspirin (Aspirin Low Dose) 81 MG EC tablet Take 1 tablet (81 mg) by mouth every morning. 90 tablet 3 atorvastatin (Lipitor) 80 MG tablet Take 1 tablet (80 mg) by mouth Nightly. 90 tablet 1 Calcium Carb-Cholecalciferol (Oyster Shell Calcium w/D) 500-5 MG-MCG tablet Take 2 tablets by mouthdaily. 180 tablet 1 Calcium Carbonate-Vitamin D (calcium-vitamin D) 500-200 MG-UNIT tablet TAKE 2 TABLETS BY MOUTH EVERY MORNING (BEFORE BREAKFAST) clopidogrel (Plavix) 75 MG tablet TAKE ONE TABLET AT 5PM 90 tablet 1 cyanocobalamin (Vitamin B-12) 1000 MCG tablet Take 1 tablet (1,000 mcg) by mouth daily. 90 tablet 1 donepezil (Aricept) 5 MG tablet Take 1 tablet (5 mg) by mouth Nightly. 90 tablet 1 ergocalciferol (Vitamin D2) 1.25 MG (57855 UT) capsule TAKE 1 CAPSULE BY MOUTH EVERY WEEK ON FRIDAY5 capsule 11 fluticasone (Flovent) 220 MCG/ACT inhaler Decrease to one puff BID 12 g 5 gabapentin (Neurontin) 300 MG capsule TAKE 1 CAPSULE BY MOUTH TWICE DAILY 62 capsule 2 isosorbide mononitrate ER (Imdur) 60 MG 24 hr tablet Take 1 tablet (60 mg) by mouth every morning. 90 tablet 1 levothyroxine (Synthroid, Levoxyl) 50 MCG tablet Take 1 tablet (50 mcg) by mouth every morning for 180 doses. 90 tablet 1 losartan (Cozaar) 25 MG tablet Take 1 tablet (25 mg) by mouth daily. 90 tablet 1 metoprolol tartrate (Lopressor) 50 MG tablet Take 1 tablet (50 mg) by mouth 2 times daily. 180 tablet 1 mirtazapine (Remeron) 7.5 MG tablet Decrease to 7.5 mg at HS 90 tablet 1 omega-3 (Fish Oil) 1000 MG capsule TAKE 3 CAPSULES BY MOUTH EVERY MORNING 93 capsule 11 pantoprazole (ProtoNix) 40 MG EC tablet CHANGE TO ONE EACH EVENING BEFORE BEDTIME 90 tablet 1 sucralfate (Carafate) 1 g tablet Take 1 tablet (1 g) by mouth in the morning and 1 tablet (1 g) in the evening. Take before meals. 180 tablet 1 tiotropium (Spiriva) [address] 1 capsule (18 mcg) into inhaler and inhale in the morning. 30 capsule 5 No current facility-administered medications on file prior to visit. 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 COPD (chronic obstructive pulmonary disease) ([facility]) Lumbar degenerative disc disease Alzheimer's disease, unspecified (CODE) ([facility]) Chronic systolic (congestive) heart failure ([facility]) Irritable bowel syndrome Psoriasis Osteoporosis with pathological fracture Thoracic compression fracture ([facility]) Anxiety GERD (gastroesophageal reflux disease) OAB (overactive bladder) Collagenous colitis Neuropathy Uzair ulcer Renal insufficiency LV dysfunction Hypercholesterolemia Hypothyroid Syncope and collapse Social History Tobacco Use Smoking status: Former Current packs/day: 0.00 Types: Cigarettes Quit date: 06/08/1990 Years since quittin.5 Smokeless tobacco: Never Substance Use Topics Alcohol use: No Alcohol/week: 0.0 standard drinks of alcohol Past Surgical History: Procedure Laterality Date BALLOON ANGIOPLASTY, ARTERY 06/[address] Martinez CARPAL TUNNEL RELEASE Bilateral 1988 CATARACT EXTRACTION Bilateral 12/09 [facility] CHOLECYSTECTOM[facility] 2002 COLONOSCOPY 10/2018 [facility]- neg- ? due COLONOSCOPY 08/2011 chronic diarrhea ([facility]) FOOT SURGERY HIATAL HERNIA REPAIR 10/2011 gastroplexy per [facility] ULNAR TUNNEL RELEASE Right 2003 UPPER GASTROINTESTINAL ENDOSCOPY 09/2011 [facility]-uzair ulcer - s/p gastroplexy per Dr. Lamb 11/03 --neg CT abd 03/06 rech 10/07 ([facility]) UPPER GASTROINTESTINAL ENDOSCOPY 10/28/2016 [facility]- esoph stenosis and HH with reflux Family History Problem Relation Name Age of Onset Cancer Mother age 60 ? met bone CA, Heart disease Father age 70 No Known Problems Sister No Known Problems Sister Kalani Diabetes type II Sister COPD Sister meet pulliam Diabetes Sister No Known Problems Sister Shira Liver disease Brother age 50 of ETOH abuse No Known Problems Brother Philip Objective: BP 110/65 (BP Location: Left arm, Patient Position: Sitting, BP Cuff Size: Large adult) Pulse 89 Temp 36.6 C (97.8 F) (Temporal) Ht 4' 11 (1.499 m) Wt 113 lb (51.3 kg) BMI 22.82 kg/m Physical Exam blood pressure recheck stable. Alert and cooperative. She is well- groomed. Has good hygiene. Recall is fair. Alert and pleasant cooperative. Well- hydrated. Nonicteric. Moist mucous primates. No neck masses adenopathy JVD or carotid bruits. No thyroid lesions. Heart is regular without gallops or new murmurs. Mild ectopy noted. Lungs are diminished but clear of rales wheezes or egophony. Abdomen scaphoid without pain hepatosplenomegaly or masses. No bruits. Femoral pulses are good. Mild pedal edema noted. She has no focal deficits in her arms and legs. EKG sinus rhythm with PACs no ischemia documented in this [facility]01-29-2025 History of Present illness Narrative* Wayne Conde, DO - 12/22/2024 1:30 PM EST Images from the original note were not included. [facility] - [address] [facility] [id number] Visit type: Established Patient Reason for Visit: Follow-up (Med Check ) and Fall (Patient has recent falls ) Assessment / Plan: Farzana was seen today for follow-up and fall. 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 female. HPI patient with history of hypertension, stable heart disease and heart failure with Alzheimer's dementia on gabapentin for chronic back pain and tingling in her legs and feet presents for overall checkup. She has had a good few months. Cerebrally she has been doing well and no change in memory. Her make sure she gets all her meds and she is compliant with taking them. Review of Systems denies recent earache sore throat or cough. No chest pain or shortness of breath.No use of nitro. prefers not to see a neurologist or cardiology. Takes Spiriva for COPD. Nopurulent phlegm PND orthopnea or edema. No heartburn on Protonix. No dysphagia or loss of weight. Bowels are regular. No melena or blood. No dysuria or incontinence. No change in quality of her upper thoracic spine pain. Gabapentin well-tolerated. Allergies Allergen Reactions Codeine Other reaction(s): GI Upset Per patient - unknown reaction Other reaction(s): Blisters Current Outpatient Medications on File Prior to Visit Medication Sig Dispense Refill acetaminophen (Tylenol) 325 MG tablet Take 650 mg by mouth. aspirin (Aspirin Low Dose) 81 MG EC tablet Take 1 tablet (81 mg) by mouth every morning. 90 tablet 3 atorvastatin (Lipitor) 80 MG tablet Take 1 tablet (80 mg) by mouth Nightly. 90 tablet 1 Calcium Carb-Cholecalciferol (Oyster Shell Calcium w/D) 500-5 MG-MCG tablet Take 2 tablets by mouthdaily. 180 tablet 1 Calcium Carbonate-Vitamin D (calcium-vitamin D) 500-200 MG-UNIT tablet TAKE 2 TABLETS BY MOUTH EVERY MORNING (BEFORE BREAKFAST) clopidogrel (Plavix) 75 MG tablet TAKE ONE TABLET AT 5PM 90 tablet 1 cyanocobalamin (Vitamin B-12) 1000 MCG tablet Take 1 tablet (1,000 mcg) by mouth daily. 90 tablet 1 donepezil (Aricept) 5 MG tablet Take 1 tablet (5 mg) by mouth Nightly. 90 tablet 1 ergocalciferol (Vitamin D2) 1.25 MG (48571 UT) capsule TAKE 1 CAPSULE BY MOUTH EVERY WEEK ON FRIDAY5 capsule 11 fluticasone (Flovent) 220 MCG/ACT inhaler Decrease to one puff BID 12 g 5 gabapentin (Neurontin) 300 MG capsule TAKE 1 CAPSULE BY MOUTH TWICE DAILY 62 capsule 2 isosorbide mononitrate ER (Imdur) 60 MG 24 hr tablet Take 1 tablet (60 mg) by mouth every morning. 90 tablet 1 levothyroxine (Synthroid, Levoxyl) 50 MCG tablet Take 1 tablet (50 mcg) by mouth every morning for 180 doses. 90 tablet 1 losartan (Cozaar) 25 MG tablet Take 1 tablet (25 mg) by mouth daily. 90 tablet 1 metoprolol tartrate (Lopressor) 50 MG tablet Take 1 tablet (50 mg) by mouth 2 times daily. 180 tablet 1 mirtazapine (Remeron) 7.5 MG tablet Decrease to 7.5 mg at HS 90 tablet 1 omega-3 (Fish Oil) 1000 MG capsule TAKE 3 CAPSULES BY MOUTH EVERY MORNING 93 capsule 11 pantoprazole (ProtoNix) 40 MG EC tablet CHANGE TO ONE EACH EVENING BEFORE BEDTIME 90 tablet 1 sucralfate (Carafate) 1 g tablet Take 1 tablet (1 g) by mouth in the morning and 1 tablet (1 g) in the evening. Take before meals. 180 tablet 1 tiotropium (Spiriva) [address] 1 capsule (18 mcg) into inhaler and inhale in the morning. 30 capsule 5 No current facility-administered medications on file prior to visit. 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 COPD (chronic obstructive pulmonary disease) ([facility]) Lumbar degenerative disc disease Alzheimer's disease, unspecified (CODE) ([facility]) Chronic systolic (congestive) heart failure ([facility]) Irritable bowel syndrome Psoriasis Osteoporosis with pathological fracture Thoracic compression fracture ([facility]) Anxiety GERD (gastroesophageal reflux disease) OAB (overactive bladder) Collagenous colitis Neuropathy Uzair ulcer Renal insufficiency LV dysfunction Hypercholesterolemia Hypothyroid Syncope and collapse Social History Tobacco Use Smoking status: Former Current packs/day: 0.00 Types: Cigarettes Quit date: 06/08/1990 Years since quittin.5 Smokeless tobacco: Never Substance Use Topics Alcohol use: No Alcohol/week: 0.0 standard drinks of alcohol Past Surgical History: Procedure Laterality Date BALLOON ANGIOPLASTY, ARTERY 06/[address] Martinez CARPAL TUNNEL RELEASE Bilateral 1987 CATARACT EXTRACTION Bilateral 12/09 [facility] CHOLECYSTECTOM[facility] 2002 COLONOSCOPY 10/2018 [facility]- neg- ? due COLONOSCOPY 08/2011 chronic diarrhea ([facility]) FOOT SURGERY HIATAL HERNIA REPAIR 10/2011 gastroplexy per Adonis ULNAR TUNNEL RELEASE Right 2003 UPPER GASTROINTESTINAL ENDOSCOPY 09/2011 GERD-uzair ulcer - s/p gastroplexy per Dr. Lamb 11/03 --neg CT abd 03/06 rech 10/07 ([facility]) UPPER GASTROINTESTINAL ENDOSCOPY 10/28/2016 [facility]- esoph stenosis and HH with reflux Family History Problem Relation Name Age of Onset Cancer Mother age 60 ? met bone CA, Heart disease Father age 70 No Known Problems Sister No Known Problems Sister Kalani Diabetes type II Sister COPD Sister meet heraclio Diabetes Sister No Known Problems Sister Shira Liver disease Brother age 50 of ETOH abuse No Known Problems Brother Philip Objective: BP 110/65 (BP Location: Left arm, Patient Position: Sitting, BP Cuff Size: Large adult) Pulse 89 Temp 36.6 C (97.8 F) (Temporal) Ht 4' 11 (1.499 m) Wt 113 lb (51.3 kg) BMI 22.82 kg/m Physical Exam blood pressure recheck stable. Alert and cooperative. She is well- groomed. Has good hygiene. Recall is fair. Alert and pleasant cooperative. Well- hydrated. Nonicteric. Moist mucous primates. No neck masses adenopathy JVD or carotid bruits. No thyroid lesions. Heart is regular without gallops or new murmurs. Mild ectopy noted. Lungs are diminished but clear of rales wheezes or egophony. Abdomen scaphoid without pain hepatosplenomegaly or masses. No bruits. Femoral pulses are good. Mild pedal edema noted. She has no focal deficits in her arms and legs. EKG sinus rhythm with PACs no ischemia documented in this [facility]01-29-2025 Miscellaneous Notes* Addendum Note - Wayne Conde DO - 12/22/2024 1:30 PM ESTAddended by: WAYNE CONDE on: 12/26/2024 05:51 PM Modules accepted: Orders documented in this [facility]01-29-2025 Note* Addendum Note - Wayne Conde DO - 12/22/2024 1:30 PM ESTAddended by: WAYNE CONDE on: 12/26/2024 05:51 PM Modules accepted: Orders [id number] Telephone encounter Note* Telephone Encounter - Mellisa Santizo MA - 11/30/2024 3:19 PM EST Recent Visits Date Type Provider Dept 09/22/24 Office Visit Wayne Conde DO [facility] 05/26/24 Office Visit Wayne Conde DO [facility] 02/04/24 Office Visit Wayne Conde DO [facility] Showing recent visits within past 365 days and meeting all other requirements Future Appointments Date Type Provider Dept 12/22/24 Appointment Wayne Conde DO [facility] [place] [place] [facility] Showing future appointments within next 90 days and meeting all other requirements Requested Prescriptions Pending Prescriptions Disp Refills gabapentin (Neurontin) 300 MG capsule [Pharmacy Med Name: Gabapentin 300 MG Capsule] 62 capsule 11 Sig: TAKE 1 CAPSULE BY MOUTH TWICE DAILY omega-3 (Fish Oil) 1000 MG capsule [Pharmacy Med Name: Fish Oil 1000 MG Capsule] 93 capsule 11 Sig: TAKE 3 CAPSULES BY MOUTH EVERY MORNING Provider: Wayne Conde DO Verified pharmacy: yes Verified day(s) supplied: yes Verified refill(s) needed (previous prescription showing no refills in chart): Yes Have you received any controlled medications from any other provider? N/A Overdue for visit: No If yes - patient scheduled? Yes Most recent labs completed in chart? N/A [facility] [id number] Miscellaneous Notes* Telephone Encounter - Mellisa Santizo MA - 11/30/2024 3:19 PM EST Recent Visits Date Type Provider Dept 09/22/24 Office Visit [facility] 05/26/24 Office Visit Wayne Conde DO [facility] 02/04/24 Office Visit Wayne Conde DO [facility] Showing recent visits within past 365 days and meeting all other requirements Future Appointments Date Type Provider Dept 12/22/24 Appointment Wayne Conde DO [facility] [place] [place] [facility] Showing future appointments within next 90 days and meeting all other requirements Requested Prescriptions Pending Prescriptions Disp Refills gabapentin (Neurontin) 300 MG capsule [Pharmacy Med Name: Gabapentin 300 MG Capsule] 62 capsule 11 Sig: TAKE 1 CAPSULE BY MOUTH TWICE DAILY omega-3 (Fish Oil) 1000 MG capsule [Pharmacy Med Name: Fish Oil 1000 MG Capsule] 93 capsule 11 Sig: TAKE 3 CAPSULES BY MOUTH EVERY MORNING Provider: Wayne Conde DO Verified pharmacy: yes Verified day(s) supplied: yes Verified refill(s) needed (previous prescription showing no refills in chart): Yes Have you received any controlled medications from any other provider? N/A Overdue for visit: No If yes - patient scheduled? Yes Most recent labs completed in chart? N/A documented in this [facility]10-31-2024 Telephone encounter Note* Telephone Encounter - Amalia Fajardo MA - 09/23/2024 3:54 PM EDT Recent Visits Date Type Provider Dept 09/22/24 Office Visit Wayne Potter Elton, DO [facility] 05/26/24 Office Visit Wayne Potter Elton, DO [facility] 02/04/24 Office Visit Wayne Conde, DO [facility] 10/23/23 Office Visit Wayne Potter Nyasiavinh, DO [facility] Showing recent visits within past 365 days and meeting all other requirements Future Appointments Date Type Provider Dept 12/22/24 Appointment Wayne Conde, DO [facility] Showing future appointments within next 90 days and meeting all other requirements Requested Prescriptions Pending Prescriptions Disp Refills ergocalciferol (Vitamin D2) 1.25 MG (93468 UT) capsule [Pharmacy Med Name: Vitamin D (Ergocalciferol) 1.25 MG (01143 UT) Capsule] 5 capsule 11 Sig: TAKE 1 CAPSULE BY MOUTH EVERY WEEK ON FRIDAY Provider: Wayne Conde DO Verified pharmacy: yes Verified day(s) supplied: yes Verified refill(s) needed (previous prescription showing no refills in chart): Yes Have you received any controlled medications from any other provider? N/A Overdue for visit: No If yes - patient scheduled? N/A Most recent labs completed in chart? No None [facility] [id number] Miscellaneous Notes* Telephone Encounter - Amalia Fajardo MA - 09/23/2024 3:54 PM EDT Recent Visits Date Type Provider Dept 09/22/24 Office Visit Wayne Potter Elton, DO [facility] 05/26/24 Office Visit Wayne Potter Elton, DO [facility] 02/04/24 Office Visit Wayne Potter Elton, DO [facility] 10/23/23 Office Visit Wayne Abbey Conde DO [facility] Showing recent visits within past 365 days and meeting all other requirements Future Appointments Date Type Provider Dept 12/22/24 Appointment Wayne Conde DO [facility] Showing future appointments within next 90 days and meeting all other requirements Requested Prescriptions Pending Prescriptions Disp Refills ergocalciferol (Vitamin D2) 1.25 MG (78749 UT) capsule [Pharmacy Med Name: Vitamin D (Ergocalciferol) 1.25 MG (55955 UT) Capsule] 5 capsule 11 Sig: TAKE 1 CAPSULE BY MOUTH EVERY WEEK ON FRIDAY Provider: Wayne Conde DO Verified pharmacy: yes Verified day(s) supplied: yes Verified refill(s) needed (previous prescription showing no refills in chart): Yes Have you received any controlled medications from any other provider? N/A Overdue for visit: No If yes - patient scheduled? N/A Most recent labs completed in chart? No None documented in this [facility]10-30-2024 History of Present illness Narrative* Wayne Conde DO - 09/22/2024 2:00 PM EDT Images from the original note were not included. [facility] [address] [facility] [id number] Visit type: Established Patient Reason for Visit: Follow-up (Med check) and Flu Vaccine (Patient is agreeable to have flu vaccine in the office ) Assessment / Plan: Farzana was seen today for follow-up and flu vaccine. Diagnoses and all orders for this visit: Essential hypertension (Primary) Comments: Stable, continue metoprolol and losartan Orders: - CBC auto differential; Future - Comprehensive metabolic panel; Future - CBC auto differential - Comprehensive metabolic panel Alzheimer's disease, unspecified (CODE) (HCC) Comments: Stable, continue Aricept 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, unspecified vessel or lesion type Comments: Stable, continue Plavix and aspirin Chronic bronchitis, unspecified chronic bronchitis type (HCC) Chronic systolic (congestive) heart failure (HCC) Compression fracture of thoracic vertebra, unspecified thoracic vertebral level, sequela Comments: Stable, continue gabapentin Hypercholesterolemia Comments: Stable, continue Lipitor Orders: - Lipid panel; Future - Lipid panel Acquired hypothyroidism Other orders - Flu vaccine (FLUAD), trivalent, adjuvanted, preservative-free (ages 65+) - atorvastatin (Lipitor) 80 MG tablet; Take 1 tablet (80 mg) by mouth Nightly. - donepezil (Aricept) 5 MG tablet; Take 1 tablet (5 mg) by mouth Nightly. - fluticasone (Flovent) 220 MCG/ACT inhaler; Decrease to one puff BID - gabapentin (Neurontin) 300 MG capsule; TAKE 1 CAPSULE BY MOUTH TWICE DAILY - isosorbide mononitrate ER (Imdur) 60 MG 24 hr tablet; Take 1 tablet (60 mg) by mouth every morning. - levothyroxine (Synthroid, Levoxyl) 50 MCG tablet; Take 1 tablet (50 mcg) by mouth every morning for 180 doses. - losartan (Cozaar) 25 MG tablet; Take 1 tablet (25 mg) by mouth daily. - metoprolol tartrate (Lopressor) 50 MG tablet; Take 1 tablet (50 mg) by mouth 2 times daily. - mirtazapine (Remeron) 7.5 MG tablet; Decrease to 7.5 mg at HS - pantoprazole (ProtoNix) 40 MG EC tablet; CHANGE TO ONE EACH EVENING BEFORE BEDTIME - tiotropium (Spiriva) 18 MCG inhalation capsule; Place 1 capsule (18 mcg) into inhaler and inhale in the morning. - Calcium Carb-Cholecalciferol (Oyster Shell Calcium w/D) 500-5 MG-MCG tablet; Take 2 tablets by mouth daily. - clopidogrel (Plavix) 75 MG tablet; TAKE ONE TABLET AT 5PM - cyanocobalamin (Vitamin B-12) 1000 MCG tablet; Take 1 tablet (1,000 mcg) by mouth daily. - omega-3 (Fish Oil) 1000 MG capsule; TAKE 3 CAPSULES BY MOUTH EVERY MORNING - sucralfate (Carafate) 1 g tablet; Take 1 tablet (1 g) by mouth in the morning and 1 tablet (1 g) in the evening. Take before meals. Subjective: Patient ID: Farzana Herron is a 83 y.o. female. HPI hypertensive patient with history of coronary disease, LV dysfunction, chronic thoracic spine pain due to osteoporotic compression fracture and mild Alzheimer's disease on Aricept presents for checkup. She presents with her is very supportive and make sure she gets all her meds. Presently she feels well on gabapentin without change in severity of pain no recent falls or leg weakness. Review of Systems would like to know the benefits of COVID vaccines. Denies recent earache sore throat or cough or chest pain. No use of nitro. No change in exertional dyspnea. She denies PND orthopnea claudication or edema. History of left ventricular ejection fraction of 40% this past December. No heartburn or dysphagia. No emesis or choking. No early satiety. Bowels are unchanged. They are regular without melena or blood. No dysuria or incontinence. Pain is in the mid thoracic spine that radiates to the lower back. No sciatica or falls. Allergies Allergen Reactions Codeine Other reaction(s): GI Upset Per patient - unknown reaction Other reaction(s): Blisters Current Outpatient Medications on File Prior to Visit Medication Sig Dispense Refill acetaminophen (Tylenol) 325 MG tablet Take 650 mg by mouth. aspirin (Aspirin Low Dose) 81 MG EC tablet Take 1 tablet (81 mg) by mouth every morning. 90 tablet 3 Calcium Carbonate-Vitamin D (calcium-vitamin D) 500-200 MG-UNIT tablet TAKE 2 TABLETS BY MOUTH EVERY MORNING (BEFORE BREAKFAST) ergocalciferol (Vitamin D2) 1.25 MG (93498 UT) capsule TAKE 1 CAPSULE BY MOUTH ONE TIME PER WEEK 12capsule 3 guaiFENesin (Mucinex) 600 MG 12 hr tablet Take 2 tablets (1,200 mg) by mouth 2 times daily. 120 tablet 5 [DISCONTINUED] atorvastatin (Lipitor) 80 MG tablet Take 1 tablet (80 mg) by mouth Nightly. 90 tablet 1 [DISCONTINUED] Calcium Carb-Cholecalciferol (Oyster Shell Calcium w/D) 500-5 MG- MCG tablet Take 2 tablets by mouth daily. 180 tablet 1 [DISCONTINUED] clopidogrel (Plavix) 75 MG tablet TAKE ONE TABLET AT 5PM 90 tablet 1 [DISCONTINUED] cyanocobalamin (Vitamin B-12) 1000 MCG tablet Take 1 tablet (1,000 mcg) by mouth daily. 90 tablet 3 [DISCONTINUED] donepezil (Aricept) 5 MG tablet Take 1 tablet (5 mg) by mouth Nightly. 90 tablet 1 [DISCONTINUED] fluticasone (Flovent) 220 MCG/ACT inhaler Decrease to one puff BID 12 g 5 [DISCONTINUED] gabapentin (Neurontin) 300 MG capsule TAKE 1 CAPSULE BY MOUTH TWICE DAILY 180 capsule 0 [DISCONTINUED] isosorbide mononitrate ER (Imdur) 60 MG 24 hr tablet Take 1 tablet (60 mg) by mouth every morning. 90 tablet 1 [DISCONTINUED] levothyroxine (Synthroid, Levoxyl) 50 MCG tablet Take 1 tablet (50 mcg) by mouth every morning for 180 doses. 90 tablet 1 [DISCONTINUED] losartan (Cozaar) 25 MG tablet Take 1 tablet (25 mg) by mouth daily. 90 tablet 1 [DISCONTINUED] metoprolol tartrate (Lopressor) 50 MG tablet Take 1 tablet (50 mg) by mouth 2 times daily. 180 tablet 1 [DISCONTINUED] mirtazapine (Remeron) 7.5 MG tablet Decrease to 7.5 mg at HS 90 tablet 1 [DISCONTINUED] omega-3 (Fish Oil) 1000 MG capsule TAKE 3 CAPSULES BY MOUTH EVERY MORNING 90 capsule1 [DISCONTINUED] pantoprazole (ProtoNix) 40 MG EC tablet CHANGE TO ONE EACH EVENING BEFORE BEDTIME 90tablet 1 [DISCONTINUED] sucralfate (Carafate) 1 g tablet Take 1 tablet (1 g) by mouth in the morning and 1 tablet (1 g) in the evening. Take before meals. 180 tablet 1 [DISCONTINUED] tiotropium (Spiriva) [address] 1 capsule (18 mcg) into inhalerand inhale in the morning. 30 capsule 5 No current facility-administered medications on file prior to visit. 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 COPD (chronic obstructive pulmonary disease) ([facility]) Lumbar degenerative disc disease Alzheimer's disease, unspecified (CODE) ([facility]) Chronic systolic (congestive) heart failure ([facility]) Irritable bowel syndrome Psoriasis Osteoporosis with pathological fracture Thoracic compression fracture ([facility]) Anxiety GERD (gastroesophageal reflux disease) OAB (overactive bladder) Collagenous colitis Neuropathy Uzair ulcer Renal insufficiency LV dysfunction Hypercholesterolemia Hypothyroid Syncope and collapse Social History Tobacco Use Smoking status: Former Current packs/day: 0.00 Types: Cigarettes Quit date: 06/08/1990 Years since quittin.3 Smokeless tobacco: Never Substance Use Topics Alcohol use: No Alcohol/week: 0.0 standard drinks of alcohol Past Surgical History: Procedure Laterality Date BALLOON ANGIOPLASTY, ARTERY 06/[address] Martinez CARPAL TUNNEL RELEASE Bilateral 1987 CATARACT EXTRACTION Bilateral 12/09 [facility] CHOLECYSTECTOMY 2001 COLONOSCOPY 10/2018 [facility]- neg- ? due COLONOSCOPY 08/2011 chronic diarrhea (med) FOOT SURGERY HIATAL HERNIA REPAIR 10/2011 gastroplexy per Adonis ULNAR TUNNEL RELEASE Right 2003 UPPER GASTROINTESTINAL ENDOSCOPY 09/2011 GERD-uzair ulcer - s/p gastroplexy per Dr. Lamb 11/03 --neg CT abd 03/06 rech 10/07 ([facility]) UPPER GASTROINTESTINAL ENDOSCOPY 10/28/2016 [facility]- esoph stenosis and HH with reflux Family History Problem Relation Name Age of Onset Cancer Mother age 60 ? met bone CA, Heart disease Father age 70 No Known Problems Sister No Known Problems Sister Kalani Diabetes type II Sister COPD Sister meet pulliam Diabetes Sister No Known Problems Sister Shira Liver disease Brother age 50 of ETOH abuse No Known Problems Brother Philip Objective: BP 104/66 (BP Location: Right arm, Patient Position: Sitting, BP Cuff Size: Adult long) Pulse 66 Temp 36.6 C (97.8 F) (Temporal) Ht 4' 11 (1.499 m) Wt 115 lb (52.2 kg) SpO2 93% BMI 23.23kg/m Physical Exam Pleasant and alert. Somewhat confused to date. Nonicteric. Normal eardrums and oropharynx. No JVD adenopathy or thyroid lesions. Faint left carotid bruits chronic. Of note her defers workup. Heart is regular with a faint aortic stenotic murmur. Lungs are clear. Abdomen scaphoid without pain hepatosplenomegaly masses or bruits. Femoral pulses are good. Extremities have no edema. Pulses are excellent. There is no motor loss of the legs feet or toes. Fair hip range of motion without difficulty. She walks well with no person assist and using her cane documented in this [facility]10-30-2024 Instructions* Patient Instructions* Wayne Conde DO - 09/22/2024 2:00 PM EDT Obtain RSV and COVID vaccines at your pharmacy documented in this [facility]10-03-2024 Telephone encounter Note* Telephone Encounter - Fanny Lua LPN - 08/26/2024 9:30 AM EDT RX loaded Next ov 09/22/24 [id number] Miscellaneous Notes* Telephone Encounter - Fanny Lua LPN - 08/26/2024 9:30 AM EDT RX loaded Next ov 09/22/24 * Telephone Encounter - Olamide Eaton - 08/26/2024 9:14 AM EDT Medication name: Spiriva HandiHaler 18 MCG inhalation capsule (Discontinued) Please send to [facility] rx/in pharmacy list Medication dosage: 18 mcg (Micrograms) Monthly quantity needed: 30 How many day supply requestin refills Medication route: inhalation (inhaler) Medication administration time(s): daily If taking medication PRN, reason for taking medication: N/A If this is a controlled substance do you receive this or any other controlled medication from any other doctor or facility: N/A Ordering provider: Dr Conde Date of last office visit: 05/26/24 Date of next office visit: 09/22/24 Date of last refill: (see medication tab): 07/18/23 Updated/Validated preferred pharmacy: Yes Patient instructed to contact the pharmacy prior to picking up the medication: Yes documented in this [facility]10-03-2024 Telephone encounter Note* Telephone Encounter - Olamide Eaton - 08/26/2024 9:14 AM EDT Medication name: Spiriva HandiHaler 18 MCG inhalation capsule (Discontinued) Please send to [facility] rx/in pharmacy list Medication dosage: 18 mcg (Micrograms) Monthly quantity needed: 30 How many day supply requestin refills Medication route: inhalation (inhaler) Medication administration time(s): daily If taking medication PRN, reason for taking medication: N/A If this is a controlled substance do you receive this or any other controlled medication from any other doctor or facility: N/A Ordering provider: Dr Conde Date of last office visit: 05/26/24 Date of next office visit: 09/22/24 Date of last refill: (see medication tab): 07/18/23 Updated/Validated preferred pharmacy: Yes Patient instructed to contact the pharmacy prior to picking up the medication: Yes [id number] Telephone encounter Note* Telephone Encounter - Annette Villeda MA - 07/28/2024 10:48 AM EDT Recent Visits Date Type Provider Dept 05/26/24 Office Visit Wayne Conde DO [facility] 02/04/24 Office Visit Wayne Conde DO [facility] 10/23/23 Office Visit Wayne Conde DO [facility] Showing recent visits within past 365 days and meeting all other requirements Future Appointments Date Type Provider Dept 09/22/24 Appointment Wayne Conde DO [facility] Showing future appointments within next 90 days and meeting all other requirements Requested Prescriptions Pending Prescriptions Disp Refills sucralfate (Carafate) 1 g tablet [Pharmacy Med Name: Sucralfate 1 GM Tablet] 180 tablet 3 Sig: Take 1 tablet (1 g) by mouth in the morning and 1 tablet (1 g) in the evening. Take before meals. gabapentin (Neurontin) 300 MG capsule [Pharmacy Med Name: Gabapentin 300 MG Capsule] 180 capsule 0 Sig: TAKE 1 CAPSULE BY MOUTH TWICE DAILY omega-3 (Fish Oil) 1000 MG capsule [Pharmacy Med Name: Fish Oil 1000 MG Capsule] 90 capsule 3 Sig: TAKE 3 CAPSULES BY MOUTH EVERY MORNING Provider: Wayne Conde DO Verified pharmacy: yes Verified day(s) supplied: yes Verified refill(s) needed (previous prescription showing no refills in chart): Yes Have you received any controlled medications from any other provider? No Overdue for visit: No If yes - patient scheduled? Yes Most recent labs completed in chart? N/A Cholesterol:No results found for: CHOLESTEROLT, HDLCHOLESTER, TRIGLYCERIDE, LDLCHOLESTER, CHOLHDLCRATI, NONHDLCHOLES [id number] Miscellaneous Notes* Telephone Encounter - Annette Villeda MA - 07/28/2024 10:48 AM EDT Recent Visits Date Type Provider Dept 05/26/24 Office Visit Wayne Conde, DO [facility] 02/04/24 Office Visit Wayne Conde DO [facility] 10/23/23 Office Visit Wayne Conde DO [facility] Showing recent visits within past 365 days and meeting all other requirements Future Appointments Date Type Provider Dept 09/22/24 Appointment Wayne Conde DO [facility] Showing future appointments within next 90 days and meeting all other requirements Requested Prescriptions Pending Prescriptions Disp Refills sucralfate (Carafate) 1 g tablet [Pharmacy Med Name: Sucralfate 1 GM Tablet] 180 tablet 3 Sig: Take 1 tablet (1 g) by mouth in the morning and 1 tablet (1 g) in the evening. Take before meals. gabapentin (Neurontin) 300 MG capsule [Pharmacy Med Name: Gabapentin 300 MG Capsule] 180 capsule 0 Sig: TAKE 1 CAPSULE BY MOUTH TWICE DAILY omega-3 (Fish Oil) 1000 MG capsule [Pharmacy Med Name: Fish Oil 1000 MG Capsule] 90 capsule 3 Sig: TAKE 3 CAPSULES BY MOUTH EVERY MORNING Provider: Wayne Conde DO Verified pharmacy: yes Verified day(s) supplied: yes Verified refill(s) needed (previous prescription showing no refills in chart): Yes Have you received any controlled medications from any other provider? No Overdue for visit: No If yes - patient scheduled? Yes Most recent labs completed in chart? N/A Cholesterol:No results found for: CHOLESTEROLT, HDLCHOLESTER, TRIGLYCERIDE, LDLCHOLESTER, CHOLHDLCRATI, NONHDLCHOLES documented in this [facility]08-19-2024 Miscellaneous Notes* Telephone Encounter - Fanny Lua LPN - 07/12/2024 11:17 AM EDT RX loaded Next ov 09/22/24 * Telephone Encounter - Lavinia Min - 07/12/2024 11:07 AM EDT Medication name: guaiFENesin (Mucinex) 600 MG 12 hr tablet Medication dosage: 600 mg (Miligrams Monthly quantity needed: 60 How many day supply requestin days Medication route: oral (PO) Medication administration time(s): 2 times a day (BID) If taking medication PRN, reason for taking medication: N/A If this is a controlled substance do you receive this or any other controlled medication from any other doctor or facility: N/A Ordering provider: Elton Date of last office visit: 05/26/24 Date of next office visit: 09/22/24 Date of last refill: (see medication tab): 02/18/24 Updated/Validated preferred pharmacy: Yes Patient instructed to contact the pharmacy prior to picking up the medication: Yes documented in this [facility]08-19-2024 Telephone encounter Note* Telephone Encounter - Fanny Lua LPN - 07/12/2024 11:17 AM EDT RX loaded Next ov 09/22/24 [place] [id number] Telephone encounter Note* Telephone Encounter - Lavinia Min - 07/12/2024 11:07 AM EDT Medication name: guaiFENesin (Mucinex) 600 MG 12 hr tablet Medication dosage: 600 mg (Miligrams Monthly quantity needed: 60 How many day supply requestin days Medication route: oral (PO) Medication administration time(s): 2 times a day (BID) If taking medication PRN, reason for taking medication: N/A If this is a controlled substance do you receive this or any other controlled medication from any other doctor or facility: N/A Ordering provider: Elton Date of last office visit: 05/26/24 Date of next office visit: 09/22/24 Date of last refill: (see medication tab): 02/18/24 Updated/Validated preferred pharmacy: Yes Patient instructed to contact the pharmacy prior to picking up the medication: Yes [id number] History of Present illness Narrative* Wayne Potter Elton, DO - 05/26/2024 3:30 PM EDT Images from the original note were not included. [facility] [address] [place] [address] [address] [facility] [id number] Visit type: Established Patient Reason for Visit: Follow-up (Med check) and Fall (Hit head has a bump on back of head has no idea what happened blacked out. ) Assessment / Plan: Farzana was seen today for follow-up and fall. 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, unspecified vessel or lesion type (Primary) Comments: Stable, continue Plavix, Isordil and aspirin and Lipitor History of myocardial infarction Alzheimer's disease, unspecified (CODE) (HCC) Comments: Stable, continue Aricept and fish oil supplements Hypercholesterolemia Comments: Stable, continue Lipitor Acquired hypothyroidism Comments: Stable, continue Levothyroid Chronic bronchitis, unspecified chronic bronchitis type (HCC) Comments: Stable, continue Flovent Neuropathy Comments: Stable, continue gabapentin and Remeron Anxiety Scalp hematoma, initial encounter Comments: Improving, reassurance, call with any neurologic symptoms as discussed Other orders - atorvastatin (Lipitor) 80 MG tablet; Take 1 tablet (80 mg) by mouth Nightly. - donepezil (Aricept) 5 MG tablet; Take 1 tablet (5 mg) by mouth Nightly. - fluticasone (Flovent) 220 MCG/ACT inhaler; Decrease to one puff BID - gabapentin (Neurontin) 300 MG capsule; TAKE 1 CAPSULE BY MOUTH TWICE DAILY - isosorbide mononitrate ER (Imdur) 60 MG 24 hr tablet; Take 1 tablet (60 mg) by mouth every morning. - levothyroxine (Synthroid, Levoxyl) 50 MCG tablet; Take 1 tablet (50 mcg) by mouth every morning for 180 doses. - losartan (Cozaar) 25 MG tablet; Take 1 tablet (25 mg) by mouth daily. - metoprolol tartrate (Lopressor) 50 MG tablet; Take 1 tablet (50 mg) by mouth 2 times daily. - mirtazapine (Remeron) 7.5 MG tablet; Decrease to 7.5 mg at HS - pantoprazole (ProtoNix) 40 MG EC tablet; CHANGE TO ONE EACH EVENING BEFORE BEDTIME - aspirin (Aspirin Low Dose) 81 MG EC tablet; Take 1 tablet (81 mg) by mouth every morning. - Calcium Carb-Cholecalciferol (Oyster Shell Calcium w/D) 500-5 MG-MCG tablet; Take 2 tablets by mouth daily. - clopidogrel (Plavix) 75 MG tablet; TAKE ONE TABLET AT 5PM - cyanocobalamin (Vitamin B-12) 1000 MCG tablet; Take 1 tablet (1,000 mcg) by mouth daily. - omega-3 (Fish Oil) 1000 MG capsule; TAKE THREE CAPSULES IN THE MORNING Subjective: Patient ID: Farzana Herron is a 83 y.o. female. HPI patient with a stable coronary disease, mild chronic bronchitis, modest dementia and chronic pain and neuropathy due to thoracic and lumbar spine degenerative disc disease presents with her . He has been in excellent partner taking care of her meds and her chronic illnesses for many years. He presents with her today and notes that she fell backwards off a small chair in her room combing her hair and struck the back of her skull about 10 days ago. Had a small hematoma developed but overall feeling well. She has had no change in mental status. No headache confusion change in vision or balance. No nausea or vomiting. Of note she is on Plavix and aspirin Review of Systems no constitutional symptoms. Eating pretty well. No weight loss. History of acid reflux but no recent heartburn or dysphagia. No early satiety. No abdominal pain. No vomiting diarrhea or passing blood. No dysuria or hematuria. No change in confusion or memory loss. Compliant with her meds for her memory. No recent cough or wheezing. Flovent has been effective. Vaccinations up-to-date. No change in her mid back pain. No recent sciatica. She does use her cane and walker routinely. Allergies Allergen Reactions Codeine Other reaction(s): GI Upset Per patient - unknown reaction Other reaction(s): Blisters Current Outpatient Medications on File Prior to Visit Medication Sig Dispense Refill acetaminophen (Tylenol) 325 MG tablet Take 650 mg by mouth. Calcium Carbonate-Vitamin D (calcium-vitamin D) 500-200 MG-UNIT tablet TAKE 2 TABLETS BY MOUTH EVERY MORNING (BEFORE BREAKFAST) ergocalciferol (Vitamin D2) 1.25 MG (35508 UT) capsule TAKE 1 CAPSULE BY MOUTH ONE TIME PER WEEK 12capsule 3 guaiFENesin (Mucinex) 600 MG 12 hr tablet TAKE 2 TABLETS BY MOUTH TWICE DAILY 96 tablet 5 [DISCONTINUED] Aspirin Low Dose 81 MG EC tablet TAKE 1 TABLET BY MOUTH EVERY MORNING 31 tablet 11 [DISCONTINUED] atorvastatin (Lipitor) 80 MG tablet TAKE 1 TABLET BY MOUTH EVERY NIGHT AT BEDTIME 90tablet 1 [DISCONTINUED] Calcium Carb-Cholecalciferol (Oyster Shell Calcium w/D) 500-5 MG- MCG tablet Take 2 tablets by mouth every morning (before breakfast). 60 tablet 11 [DISCONTINUED] clopidogrel (Plavix) 75 MG tablet TAKE ONE TABLET AT 5PM 90 tablet 1 [DISCONTINUED] cyanocobalamin (Vitamin B-12) 1000 MCG tablet Take 1 tablet (1,000 mcg) by mouth daily. Do not start before January 22, 2024. 30 tablet 0 [DISCONTINUED] donepezil (Aricept) 5 MG tablet Take 1 tablet (5 mg) by mouth Nightly. 90 tablet 1 [DISCONTINUED] fluticasone (Flovent) 220 MCG/ACT inhaler Decrease to one puff BID 12 g 5 [DISCONTINUED] gabapentin (Neurontin) 300 MG capsule TAKE 1 CAPSULE BY MOUTH TWICE DAILY 60 capsule0 [DISCONTINUED] isosorbide mononitrate ER (Imdur) 60 MG 24 hr tablet Take 1 tablet (60 mg) by mouth every morning. 90 tablet 1 [DISCONTINUED] levothyroxine (Synthroid, Levoxyl) 50 MCG tablet Take 1 tablet (50 mcg) by mouth every morning for 180 doses. 90 tablet 1 [DISCONTINUED] losartan (Cozaar) 25 MG tablet TAKE 1 TABLET BY MOUTH EVERY DAY 90 tablet 1 [DISCONTINUED] metoprolol tartrate (Lopressor) 50 MG tablet TAKE 1 TABLET BY MOUTH TWICE DAILY 180 tablet 1 [DISCONTINUED] mirtazapine (Remeron) 7.5 MG tablet Decrease to 7.5 mg at HS 90 tablet 1 [DISCONTINUED] omega-3 (Fish Oil) 1000 MG capsule TAKE THREE CAPSULES IN THE MORNING 90 capsule 11 [DISCONTINUED] pantoprazole (ProtoNix) 40 MG EC tablet CHANGE TO ONE EACH EVENING BEFORE BEDTIME 90tablet 1 No current facility-administered medications on file prior to visit. 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 COPD (chronic obstructive pulmonary disease) ([facility]) Lumbar degenerative disc disease Alzheimer's disease, unspecified (CODE) ([facility]) Chronic systolic (congestive) heart failure ([facility]) Irritable bowel syndrome Psoriasis Osteoporosis with pathological fracture Thoracic compression fracture ([facility]) Anxiety GERD (gastroesophageal reflux disease) OAB (overactive bladder) Collagenous colitis Neuropathy Uzair ulcer Renal insufficiency LV dysfunction Hypercholesterolemia Hypothyroid Syncope and collapse Social History Tobacco Use Smoking status: Former Current packs/day: 0.00 Types: Cigarettes Quit date: 06/08/1990 Years since quittin.9 Smokeless tobacco: Never Substance Use Topics Alcohol use: No Alcohol/week: 0.0 standard drinks of alcohol Past Surgical History: Procedure Laterality Date BALLOON ANGIOPLASTY, ARTERY 06/[address] Martinez CARPAL TUNNEL RELEASE Bilateral 1987 CATARACT EXTRACTION Bilateral 12/09 [facility] CHOLECYSTECTOMY 2002 COLONOSCOPY 10/2018 [facility]- neg- ? due COLONOSCOPY 08/2011 chronic diarrhea ([facility]) FOOT SURGERY HIATAL HERNIA REPAIR 10/2011 gastroplexy per Adonis ULNAR TUNNEL RELEASE Right 2002 UPPER GASTROINTESTINAL ENDOSCOPY 09/2011 GERD-uzair ulcer - s/p gastroplexy per Dr. Lamb 11/03 --neg CT abd 03/06 rech 10/07 ([facility]) UPPER GASTROINTESTINAL ENDOSCOPY 10/28/2016 [facility]- esoph stenosis and HH with reflux Family History Problem Relation Name Age of Onset Cancer Mother age 60 ? met bone CA, Heart disease Father age 70 No Known Problems Sister No Known Problems Sister Kalani Diabetes type II Sister COPD Sister meet heraclio Diabetes Sister No Known Problems Sister Shira Liver disease Brother age 50 of ETOH abuse No Known Problems Brother Philip Objective: BP 132/78 Pulse 68 Temp 36.1 C (97 F) (Temporal) Ht 4' 11 (1.499 m) Wt 121 lb (54.9 kg) SpO2 94% BMI 24.44 kg/m Physical Exam very pleasant and engaging today. Well hydrated. Nonicteric. Normal eardrums and oropharynx. There is a 1.5 cm hematoma in the back of her right occiput.. Nontender skull. Neck supple. Normal cranial nerves. No neck masses JVD adenopathy or carotid bruits. Heart is regular without ectopy or murmurs. Lungs diminished in the bases but without rales wheezing or egophony. Abdomen soft nontender without pain hepatosplenomegaly or masses. No bruits. Extremities are pink without edema pallor or cyanosis. Her gait is stable without her cane. No focal deficits of her arms or legs. Negative Romberg, finger-nose testing was stable. Tandem gait was not assessed documented in this encounterSUniversity Hospitals Conneaut Medical [id number] Telephone encounter Note* Telephone Encounter - Mellisa Santizo MA - 05/20/2024 7:31 AM EDT [facility] is scheduled [facility] [id number] Miscellaneous Notes* Telephone Encounter - Mellisa Santizo MA - 05/20/2024 7:31 AM EDT Pt is scheduled * Telephone Encounter - Mellisa Santizo MA - 05/19/2024 11:42 AM EDT Recent Visits Date Type Provider Dept 02/04/24 Office Visit Wayne Conde DO [facility] 10/23/23 Office Visit DO [facility] 07/17/23 Office Visit DO [facility] Showing recent visits within past 365 days and meeting all other requirements Future Appointments Date Type Provider Dept 05/26/24 Appointment Wayne Conde DO [facility] Showing future appointments within next 90 days and meeting all other requirements Requested Prescriptions Pending Prescriptions Disp Refills atorvastatin (Lipitor) 80 MG tablet [Pharmacy Med Name: Atorvastatin Calcium 80 MG Tablet] 30 tablet 11 Sig: TAKE 1 TABLET BY MOUTH EVERY NIGHT AT BEDTIME losartan (Cozaar) 25 MG tablet [Pharmacy Med Name: Losartan Potassium 25 MG Tablet] 30 tablet 11 Sig: TAKE 1 TABLET BY MOUTH EVERY DAY metoprolol tartrate (Lopressor) 50 MG tablet [Pharmacy Med Name: Metoprolol Tartrate 50 MG Tablet] 60 tablet 11 Sig: TAKE 1 TABLET BY MOUTH TWICE DAILY gabapentin (Neurontin) 300 MG capsule [Pharmacy Med Name: Gabapentin 300 MG Capsule] 62 capsule 11 Sig: TAKE 1 CAPSULE BY MOUTH TWICE DAILY Provider: Wayne Conde DO Verified pharmacy: yes Verified day(s) supplied: yes Verified refill(s) needed (previous prescription showing no refills in chart): Yes Have you received any controlled medications from any other provider? N/A Overdue for visit: Yes If yes - patient scheduled? Yes Most recent labs completed in chart? N/A Hypertension: Lab Results Component Value Date NA 135 01/21/2024 K 4.1 01/21/2024 EGFR 58.5 (L) 01/21/2024 BUN 25 (H) 01/21/2024 CREATININE 0.96 01/21/2024 documented in this [facility]06-26-2024 Telephone encounter Note* Telephone Encounter - Mellisa Santizo MA - 05/19/2024 11:42 AM EDT Recent Visits Date Type Provider Dept 02/04/24 Office Visit Wayne Conde DO [facility] 10/23/23 Office Visit Wayne Conde DO [facility] 07/17/23 Office Visit DO Shen Parr [place] [facility] Showing recent visits within past 365 days and meeting all other requirements Future Appointments Date Type Provider Dept 05/26/24 Appointment Wayne Conde DO [facility] Showing future appointments within next 90 days and meeting all other requirements Requested Prescriptions Pending Prescriptions Disp Refills atorvastatin (Lipitor) 80 MG tablet [Pharmacy Med Name: Atorvastatin Calcium 80 MG Tablet] 30 tablet 11 Sig: TAKE 1 TABLET BY MOUTH EVERY NIGHT AT BEDTIME losartan (Cozaar) 25 MG tablet [Pharmacy Med Name: Losartan Potassium 25 MG Tablet] 30 tablet 11 Sig: TAKE 1 TABLET BY MOUTH EVERY DAY metoprolol tartrate (Lopressor) 50 MG tablet [Pharmacy Med Name: Metoprolol Tartrate 50 MG Tablet] 60 tablet 11 Sig: TAKE 1 TABLET BY MOUTH TWICE DAILY gabapentin (Neurontin) 300 MG capsule [Pharmacy Med Name: Gabapentin 300 MG Capsule] 62 capsule 11 Sig: TAKE 1 CAPSULE BY MOUTH TWICE DAILY Provider: Wayne Coned DO Verified pharmacy: yes Verified day(s) supplied: yes Verified refill(s) needed (previous prescription showing no refills in chart): Yes Have you received any controlled medications from any other provider? N/A Overdue for visit: Yes If yes - patient scheduled? Yes Most recent labs completed in chart? N/A Hypertension: Lab Results Component Value Date NA 135 01/21/2024 K 4.1 01/21/2024 EGFR 58.5 (L) 01/21/2024 BUN 25 (H) 01/21/2024 CREATININE 0.96 01/21/2024 [facility] [id number] Miscellaneous Notes* Telephone Encounter - Mellisa Santizo MA - 05/19/2024 11:42 AM EDT Recent Visits Date Type Provider Dept 02/04/24 Office Visit Wayne Conde DO [facility] [place] 10/23/23 Office Visit Wayne Conde DO [facility] [place] 07/17/23 Office Visit Wayne Conde DO [facility] Showing recent visits within past 365 days and meeting all other requirements Future Appointments Date Type Provider Dept 05/26/24 Appointment Wayne Conde DO [facility] [place] Showing future appointments within next 90 days and meeting all other requirements Requested Prescriptions Pending Prescriptions Disp Refills atorvastatin (Lipitor) 80 MG tablet [Pharmacy Med Name: Atorvastatin Calcium 80 MG Tablet] 30 tablet 11 Sig: TAKE 1 TABLET BY MOUTH EVERY NIGHT AT BEDTIME losartan (Cozaar) 25 MG tablet [Pharmacy Med Name: Losartan Potassium 25 MG Tablet] 30 tablet 11 Sig: TAKE 1 TABLET BY MOUTH EVERY DAY metoprolol tartrate (Lopressor) 50 MG tablet [Pharmacy Med Name: Metoprolol Tartrate 50 MG Tablet] 60 tablet 11 Sig: TAKE 1 TABLET BY MOUTH TWICE DAILY gabapentin (Neurontin) 300 MG capsule [Pharmacy Med Name: Gabapentin 300 MG Capsule] 62 capsule 11 Sig: TAKE 1 CAPSULE BY MOUTH TWICE DAILY Provider: Wayne Conde DO Verified pharmacy: yes Verified day(s) supplied: yes Verified refill(s) needed (previous prescription showing no refills in chart): Yes Have you received any controlled medications from any other provider? N/A Overdue for visit: Yes If yes - patient scheduled? Yes Most recent labs completed in chart? N/A Hypertension: Lab Results Component Value Date NA 135 01/21/2024 K 4.1 01/21/2024 EGFR 58.5 (L) 01/21/2024 BUN 25 (H) 01/21/2024 CREATININE 0.96 01/21/2024 documented in this [facility]03-27-2024 Telephone encounter Note* Telephone Encounter - Natty Noriega MA - 02/18/2024 2:52 PM EDT Rx loaded [place] [id number] Miscellaneous Notes* Telephone Encounter - Natty Noriega MA - 02/18/2024 2:52 PM EDT Rx loaded documented in this [place] [id number] Telephone encounter Note* Telephone Encounter - Annette Villeda MA - 02/05/2024 11:[address] Conde - please sign referral pended for your approval [id number] Miscellaneous Notes* Telephone Encounter - Annette Villeda MA - 02/05/2024 11:[address] Conde - please sign referral pended for your approval * Telephone Encounter - Rashida Patel - 02/05/2024 7:00 AM EDT Please assist. * Telephone Encounter - Rashida Hunte - 02/05/2024 7:00 AM EDT ----- Message from Amara Sullivan MA sent at 02/04/2024 4:21 PM EDT ----- ----- Message ----- From: Wayne Conde DO Sent: 02/04/2024 3:16 PM EDT To: Amara Sullivan MA Set up referral for home nursing assesment for pt and education for rx, PT training for gait disturbance, documented in this encounterSUniversity Hospitals Conneaut Medical CenterRkvtfm79-72-9892 Telephone encounter Note* Telephone Encounter - Rashida Hunte - 02/05/2024 7:00 AM EDT Please assist. [facility] [id number] Telephone encounter Note* Telephone Encounter - Rashida Hunte - 02/05/2024 7:00 AM EDT ----- Message from Amara Sullivan MA sent at 02/04/2024 4:21 PM EDT ----- ----- Message ----- From: Wayne Conde DO Sent: 02/04/2024 3:16 PM EDT To: Amara Sullivan MA Set up referral for home nursing assesment for pt and education for rx, PT training for gait disturbance, [facility] [id number] History of Present illness Narrative* Wayne Potter DO [place] - 02/04/2024 2:30 PM EDT Images from the original note were not included. [facility] [address] [facility] [id number] Visit type: Established Patient Reason for Visit: Follow-up (3 month med check ) Assessment / Plan: Farzana was seen today for follow-up. Diagnoses and all orders for this visit: Essential hypertension (Primary) Comments: Stable, reviewed meds, continue metoprolol at twice daily and losartan and isosorbide every morning Alzheimer's disease, unspecified (CODE) (HCC) Comments: Stable, continue Remeron and Aricept w/ fish oil supplements Chronic systolic (congestive) heart failure (HCC) Chronic bronchitis, unspecified chronic bronchitis type (HCC) Comments: Stable, decrease Flovent twice daily and stop Spiriva and albuterol after reviewing risk and benefits. Hypercholesterolemia Comments: Stable, continue atorvastatin Lumbar degenerative disc disease Comments: Stable, continue gabapentin 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, unspecified vessel or lesion type Comments: Stable, continue Plavix and aspirin Acquired hypothyroidism Other orders - losartan (Cozaar) 25 MG tablet; Take 1 tablet (25 mg) by mouth daily. - atorvastatin (Lipitor) 80 MG tablet; Take 1 tablet (80 mg) by mouth Nightly. - fluticasone (Flovent) 220 MCG/ACT inhaler; Decrease to one puff BID - Discontinue: levothyroxine (Synthroid, Levoxyl) 50 MCG tablet; Take 1 tablet (50 mcg) by mouth every morning for 180 doses. - metoprolol tartrate (Lopressor) 50 MG tablet; Take 1 tablet (50 mg) by mouth 2 times daily for 60doses. - clopidogrel (Plavix) 75 MG tablet; TAKE ONE TABLET AT 5PM - donepezil (Aricept) 5 MG tablet; Take 1 tablet (5 mg) by mouth Nightly. - gabapentin (Neurontin) 300 MG capsule; TAKE 1 CAPSULE BY MOUTH TWICE DAILY - isosorbide mononitrate ER (Imdur) 60 MG 24 hr tablet; Take 1 tablet (60 mg) by mouth every morning. - levothyroxine (Synthroid, Levoxyl) 50 MCG tablet; Take 1 tablet (50 mcg) by mouth every morning for 180 doses. - mirtazapine (Remeron) 7.5 MG tablet; Decrease to 7.5 mg at HS - pantoprazole (ProtoNix) 40 MG EC tablet; CHANGE TO ONE EACH EVENING BEFORE BEDTIME - sucralfate (Carafate) 1 g tablet; Take 1 tablet (1 g) by mouth in the morning and 1 tablet (1 g) in the evening. Take before meals. Do all this for 180 doses. Also time spent on going over her med list. Will obtain home nursing consultation for education forhusband and patient. Subjective: Patient ID: Farzana Herron is a 83 y.o. female. HPI patient with history of hypertension, coronary disease, mild COPD and Alzheimer's disease presents with her after being admitted for either syncope and dehydration. Extensive workup including CT of the head, cervical spine abdomen and chest and echocardiogram showed a stable patient. Some issues with compliance with her meds. Her tries to do his best keeping his meds straight with a prefilled packaging system. Syndrome has many questions about her meds. Recent URI with cough. Lessening symptoms. Denies shortness of breath or chest pain. No antibiotic necessary. Not taking inhalers regularly. He would like to minimize the use. Review of Systems weight is okay. No recent nausea vomiting or diarrhea. No dysuria. Denies headache or change in vision. No recent falls since being admitted. No chest pain or palpitations. No PND orthopnea or claudication. Mild cough is improving. No abdominal pain. No emesis. Question of how much sucralfate she needs. No dysphagia or melena or blood. Bowels are pretty regular. No dysuria or incontinence. She is on gabapentin for chronic lumbar back pain. Takes Remeron for sleep and appetite. Allergies Allergen Reactions Codeine Other reaction(s): GI Upset Per patient - unknown reaction Other reaction(s): Blisters Current Outpatient Medications on File Prior to Visit Medication Sig Dispense Refill Aspirin Low Dose 81 MG EC tablet TAKE 1 TABLET BY MOUTH EVERY MORNING 31 tablet 11 Calcium Carb-Cholecalciferol (Oyster Shell Calcium w/D) 500-5 MG-MCG tablet Take 2 tablets by mouthevery morning (before breakfast). 60 tablet 11 Calcium Carbonate-Vitamin D (calcium-vitamin D) 500-200 MG-UNIT tablet TAKE 2 TABLETS BY MOUTH EVERY MORNING (BEFORE BREAKFAST) cyanocobalamin (Vitamin B-12) 1000 MCG tablet Take 1 tablet (1,000 mcg) by mouth daily. Do not start before January 22, 2024. 30 tablet 0 ergocalciferol (Vitamin D2) 1.25 MG (93999 UT) capsule TAKE 1 CAPSULE BY MOUTH ONE TIME PER WEEK 12capsule 3 guaiFENesin (Mucus Relief) 600 MG 12 hr tablet TAKE 2 TABLETS BY MOUTH TWICE DAILY 60 tablet 11 omega-3 (Fish Oil) 1000 MG capsule TAKE THREE CAPSULES IN THE MORNING 90 capsule 11 [DISCONTINUED] atorvastatin (Lipitor) 80 MG tablet Take 1 tablet (80 mg) by mouth Nightly. 30 tablet 3 [DISCONTINUED] clopidogrel (Plavix) 75 MG tablet TAKE ONE TABLET AT 5PM 90 tablet 1 [DISCONTINUED] donepezil (Aricept) 5 MG tablet Take 1 tablet (5 mg) by mouth Nightly. 90 tablet 1 [DISCONTINUED] gabapentin (Neurontin) 300 MG capsule TAKE 1 CAPSULE BY MOUTH TWICE DAILY 62 capsule2 [DISCONTINUED] isosorbide mononitrate ER (Imdur) 60 MG 24 hr tablet Take 1 tablet (60 mg) by mouth every morning. 90 tablet 1 [DISCONTINUED] loratadine (Claritin) 10 MG tablet TAKE 1 TABLET BY MOUTH EVERY MORNING 30 tablet 11 [DISCONTINUED] metoprolol tartrate (Lopressor) 50 MG tablet Take 1 tablet (50 mg) by mouth 3 times daily. 90 tablet 3 [DISCONTINUED] mirtazapine (Remeron) 7.5 MG tablet Decrease to 7.5 mg at HS 90 tablet 1 [DISCONTINUED] pantoprazole (ProtoNix) 40 MG EC tablet CHANGE TO ONE EACH EVENING BEFORE BEDTIME 90tablet 1 [DISCONTINUED] sucralfate (Carafate) 1 g tablet Take 1 g by mouth 4 times daily (before meals and nightly). acetaminophen (Tylenol) 325 MG tablet Take 650 mg by mouth. [DISCONTINUED] albuterol 108 (90 Base) MCG/ACT inhaler Inhale 2 puffs every 6 hours as needed for wheezing or shortness of breath. (Patient not taking: Reported on 02/04/2024) 18 g 5 [DISCONTINUED] fluticasone (Flovent) 220 MCG/ACT inhaler Inhale 2 puffs 2 times daily. (Patient nottaking: Reported on 02/04/2024) 12 g 5 [DISCONTINUED] levothyroxine (Synthroid, Levoxyl) 50 MCG tablet Take 1 tablet (50 mcg) by mouth every morning for 180 doses. (Patient not taking: Reported on 02/04/2024) 90 tablet 1 [DISCONTINUED] losartan (Cozaar) 25 MG tablet Take 1 tablet (25 mg) by mouth daily. Do not start before January 22, 2024. (Patient not taking: Reported on 02/04/2024) 30 tablet 3 [DISCONTINUED] polyethylene glycol, PEG, 3350 (Glycolax) 17 GM/SCOOP powder Take 17 g by mouth daily for 14 days. Take daily for constipation (Patient not taking: Reported on 02/04/2024) 119 g 1 [DISCONTINUED] Spiriva HandiHaler [address] 1 capsule (18 mcg) into inhaler and inhale daily. (Patient not taking: Reported on 02/04/2024) 30 capsule 5 No current facility-administered medications on file prior to visit. 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 COPD (chronic obstructive pulmonary disease) ([facility]) Lumbar degenerative disc disease Alzheimer's disease, unspecified (CODE) ([facility]) Chronic systolic (congestive) heart failure ([facility]) Irritable bowel syndrome Psoriasis Osteoporosis with pathological fracture Thoracic compression fracture ([facility]) Anxiety GERD (gastroesophageal reflux disease) OAB (overactive bladder) Collagenous colitis Neuropathy Uzair ulcer Renal insufficiency LV dysfunction Hypercholesterolemia Hypothyroid Syncope and collapse Social History Tobacco Use Smoking status: Former Packs/day: 0 Types: Cigarettes Quit date: 06/08/1990 Years since quittin.6 Smokeless tobacco: Never Substance Use Topics Alcohol use: No Alcohol/week: 0.0 standard drinks of alcohol Past Surgical History: Procedure Laterality Date BALLOON ANGIOPLASTY, ARTERY 06/[address] Martinez CARPAL TUNNEL RELEASE Bilateral 1987 CATARACT EXTRACTION Bilateral 12/09 [facility] CHOLECYSTECTOMY 2002 COLONOSCOPY 10/2018 Ahmed- neg- ? due COLONOSCOPY 08/2011 chronic diarrhea (Zahida) FOOT SURGERY HIATAL HERNIA REPAIR 10/2011 gastroplexy per Bisconti ULNAR TUNNEL RELEASE Right 2002 UPPER GASTROINTESTINAL ENDOSCOPY 09/2011 GERD-uzair ulcer - s/p gastroplexy per Dr. Lamb 11/03 --neg CT abd 03/06 rech 10/07 (Zahida) UPPER GASTROINTESTINAL ENDOSCOPY 10/28/2016 ahmed- esoph stenosis and HH with reflux Family History Problem Relation Name Age of Onset Cancer Mother age 60 ? met bone CA, Heart disease Father age 70 No Known Problems Sister No Known Problems Sister Kalani Diabetes type II Sister COPD Sister meet heraclio Diabetes Sister No Known Problems Sister Shira Liver disease Brother age 50 of ETOH abuse No Known Problems Brother Philip Objective: BP 138/78 Pulse 68 Temp 36.1 C (97 F) (Temporal) Ht 4' 11 (1.499 m) Wt 116 lb (52.6 kg) SpO2 96% BMI 23.43 kg/m Physical Exam She is pleasant and alert and oriented today. Memory is poor. No neck masses JVD or adenopathy. No change in faint left carotid bruits. Heart is regular without new murmurs. No ectopy or gallops. Lungs have upper rhonchi that clear with cough. No rales or wheezes. Abdomen without pain hepatosplenomegaly masses or bruits. Extremities are pink without edema. Pulses are adequate. No focal deficits in strength of the upper or lower extremity. She walks with one-person assist getting to the chair and table. Using a cane. documented in this [facility]03-01-2024 Telephone encounter Note* Telephone Encounter - Mellisa Santizo MA - 01/23/2024 11:56 AM EST Order pended. [facility] [id number] Miscellaneous Notes* Telephone Encounter - Mellisa Santizo MA - 01/23/2024 11:56 AM EST Order pended. * Telephone Encounter - Itzel Correia - 01/23/2024 11:24 AM EST Name of caller: Jing Contact phone number: [phone] Relationship to Patient: [facility] Provider: Dr Conde Practice: [place] Chief Complaint/Reason for Call: Caller stated that patient has been falling a lot due to cane not being stable enough and would like to get order for rollator. Caller stated that Itzel Rich the [facility] [employer] Coach would be the customer contact representative who will help getting this paid for. Caller stated with any questions please call Itzel [phone] or patients Sameer [phone]. Please advise. Thank you. Best time of day caller can be reached: Any Patient advised that office/PCP has 24-48 business hours to return their call: No documented in this encounterSUniversity Hospitals Conneaut Medical [id number] Telephone encounter Note* Telephone Encounter - Itzel Correia - 01/23/2024 11:24 AM EST Name of caller: Jing Contact phone number: [phone] Relationship to Patient: [facility] Provider: Dr Conde Practice: [place] Chief Complaint/Reason for Call: Caller stated that patient has been falling a lot due to cane not being stable enough and would like to get order for rollator. Caller stated that Itzel Rich the [facility] Home Job Coach would be the customer contact representative who will help getting this paid for. Caller stated with any questions please call Itzel [phone] or patients Sameer [phone]. Please advise. Thank you. Best time of day caller can be reached: Any Patient advised that office/PCP has 24-48 business hours to return their call: No [facility] [id number] Nurse Note* Nikki Calvillo LPN - 01/21/2024 2:34 PM EST Discharge Instructions given to . Instructions went over several times due to is hard of hearing. [facility] [id number] Nurse Note* Nikki Calvillo LPN - 01/21/2024 2:34 PM EST Discharge Instructions given to . Instructions went over several times due to is hard of hearing. documented in this [facility]02-28-2024 Note* Care Coordination - Yessica Kaiser RN - 01/21/2024 2:30 PM EST Images from the original note were not included. Care Management Progress Note DC orders in and signed by Louann SKAGGS. to transport home. Declined [facility]. DC home independently in stable condition. at2:31 PM\ Discharge Milestones and Delays Expected Date/Time: 01/21/2024 Disposition: Home or Self Care Transport status: No current request Discharge Milestones Completed Place discharge order Complete med reconciliation Case mgmt discharge readiness Clinical Stability Diagnsotic Workup Expected Discharge History Expected Date/Time Set By Reviewed At 01/21/2024 ANGELLA Melo CNP 01/21/2024 1:02 PM Ileus- Nausea resolved, advancing diet GI Cons? Lung nodule- Pt and don't want f/u 01/21/2024 Yessica Kaiser RN 01/21/2024 8:04 AM 01/21/2024 Yessica Kaiser RN 01/20/2024 8:17 AM Pulm- Neoplastic? Geriatrics saw- AMS due to illness and hospital Per ashley: DCP is home 01/21/2024 Yessica Kaiser RN 01/19/2024 8:14 AM Confused- Pulled out IV and wandering halls?? Geriatrics Cons 01/19/2024 Don Wasserman MD 01/16/2024 12:41 PM 01/19/2024 Don Wasserman MD 01/16/2024 11:52 AM Length of Stay (Days): 5 GMLOS: 2.4 [facility] [id number] Note* Care Coordination - Yessica Kaiser RN - 01/21/2024 2:30 PM EST Images from the original note were not included. Care Management Progress Note DC orders in and signed by Louann SKAGGS. to transport home. Declined [facility]. DC home independently in stable condition. at2:31 PM\ Discharge Milestones and Delays Expected Date/Time: 01/21/2024 Disposition: Home or Self Care Transport status: No current request Discharge Milestones Completed Place discharge order Complete med reconciliation Case mgmt discharge readiness Clinical Stability Diagnsotic Workup Expected Discharge History Expected Date/Time Set By Reviewed At 01/21/2024 ANGELLA Melo CNP 01/21/2024 1:02 PM Ileus- Nausea resolved, advancing diet GI Cons? Lung nodule- Pt and don't want f/u 01/21/2024 Yessica Kaiser RN 01/21/2024 8:04 AM 01/21/2024 Yessica Kaiser RN 01/20/2024 8:17 AM Pulm- Neoplastic? Geriatrics saw- AMS due to illness and hospital Per koleband: DCP is home 01/21/2024 Yessica Kaiser RN 01/19/2024 8:14 AM Confused- Pulled out IV and wandering halls?? Geriatrics Cons 01/19/2024 Don Wasserman MD 01/16/2024 12:41 PM 01/19/2024 Don Wasserman MD 01/16/2024 11:52 AM Length of Stay (Days): 5 GMLOS: 2.4 [facility] [id number] Miscellaneous Notes* Care Coordination - Yessica Kaiser RN - 01/21/2024 2:30 PM EST Images from the original note were not included. Care Management Progress Note DC orders in and signed by Louann SKAGGS. to transport home. Declined [facility]. DC home independently in stable condition. at2:31 PM\ Discharge Milestones and Delays Expected Date/Time: 01/21/2024 Disposition: Home or Self Care Transport status: No current request Discharge Milestones Completed Place discharge order Complete med reconciliation Case mgmt discharge readiness Clinical Stability Diagnsotic Workup Expected Discharge History Expected Date/Time Set By Reviewed At 01/21/2024 ANGELLA Melo CNP 01/21/2024 1:02 PM Ileus- Nausea resolved, advancing diet GI Cons? Lung nodule- Pt and don't want f/u 01/21/2024 Yessica Kaiser RN 01/21/2024 8:04 AM 01/21/2024 Yessica Kaiser RN 01/20/2024 8:17 AM Pulm- Neoplastic? Geriatrics saw- AMS due to illness and hospital Per alejandroband: DCP is home 01/21/2024 Yessica Kaiser RN 01/19/2024 8:14 AM Confused- Pulled out IV and wandering halls?? Geriatrics Cons 01/19/2024 Don Wasserman MD 01/16/2024 12:41 PM 01/19/2024 Don Wasserman MD 01/16/2024 11:52 AM Length of Stay (Days): 5 GMLOS: 2.4 * Home Care - Juju Erickson RN - 01/21/2024 1:06 PM EST Pt/spouse declined home care services. PACC signing off. * Care Coordination - Yessica Kaiser RN - 01/21/2024 8:04 AM EST Images from the original note were not included. Care Management Progress Note Patient remains on 4S for syncope and collapse Clinical updates: Patient and do not want any follow up on lung nodule. Nausea resolved, advancing diet. Possible ileus noted, awaiting decision for GI Cons, Discharge plan: Home vs home with [facility] Discharge obstacles: Awaiting clinical stability TCC will continue to follow. Discharge Milestones and Delays Expected Date/Time: 01/21/[address] discharge order Complete med reconciliation Case mgmt discharge readiness Clinical Stability Diagnsotic Workup Expected Discharge History Expected Date/Time Set By Reviewed At 01/21/2024 Yessica Kaiser RN 01/21/2024 8:04 AM Ileus- Nausea resolved, advancing diet GI Cons? Lung nodule- Pt and don't want f/u 01/21/2024 Yessica Kaiser RN 01/20/2024 8:17 AM Pulm- Neoplastic? Geriatrics saw- AMS due to illness and hospital Per ashley: DCP is home 01/21/2024 Yessica Kaiser RN 01/19/2024 8:14 AM Confused- Pulled out IV and wandering halls?? Geriatrics Cons 01/19/2024 Don Wasserman MD 01/16/2024 12:41 PM 01/19/2024 Don Wasserman MD 01/16/2024 11:52 AM Length of Stay (Days): 5 GMLOS: 2.4 * Care Coordination - Cherelle Larson RCP - 01/20/2024 4:15 PM EST Navigator reviewed inpatient consult from pulmonary providers. Patient and continue to decline lung nodule follow-up. They are aware this could be a potential malignancy, but given patient's age and overall health, they do not wish to pursue follow-up. Navigators to sign off. * Home Care - Juju Erickson RN - 01/19/2024 4:20 PM EST Safety And Skill Based Pay Manager following case for Discharge Needs. * Care Coordination - Cherelle Larson RCP - 01/19/2024 12:32 PM EST Reviewed EMR from weekend. Patient remains admitted with ongoing confusion. Per inpt team, family wants to pursue diagnostic work up for lung nodule. Awaiting inpt pulmonary consult and possible CT lung Bx. Navigator will continue to assist with lung nodule follow up. * Care Coordination - Yessica Kaiser RN - 01/19/2024 8:14 AM EST Images from the original note were not included. Care Management Progress Note Patient remains on 4S for syncope and collapse Clinical updates: Patient is very confused, per SAND OPERATOR note, patient pulled out her IV and was wandering the halls. Geriatrics to see today. Discharge plan: TBD Discharge obstacles: Awaiting clinical stability TCC will continue to follow. Discharge Milestones and Delays Expected Date/Time: 01/21/[address] discharge order Complete med reconciliation Case mgmt discharge readiness Clinical Stability Diagnsotic Workup Expected Discharge History Expected Date/Time Set By Reviewed At 01/21/2024 Yessica Kaiser RN 01/19/2024 8:14 AM Confused- Pulled out IV and wandering halls?? Geriatrics Cons 01/19/2024 Don Wasserman MD 01/16/2024 12:41 PM 01/19/2024 Don Wasserman MD 01/16/2024 11:52 AM Length of Stay (Days): 3 GMLOS: 2.4 * Care Coordination - Gabe Preston RN - 01/18/2024 12:17 PM EST Care Coordination Daily Note/Update Clinical Update: admitted with syncope and a fall. Patient has known history of dementia, and at baseline she is confused and oriented to self. She also presented with nausea. COVID flu and RSV were negative. No evidence of UTI or other infection. Per nursing the patient had an incident yesterday that she was confused disoriented unable to be redirected. She also had increased blood pressures. Geriatrics consulted - awaiting eval for recs. Discharge Plan: TBD Discharge Barriers: establish contact with a patient b2b outside sales representative to complete IA; form safe discharge plan; clinical stability Chart reviewed. Stopped by patient room to see if there were any visitors at the bedside. Patient alone and sleeping soundly. Attempted to phone patient's home number ([phone]) in hopes of getting in touch with spouse, Sameer, but rang with no answer. Phoned patient's sister, Inez Bowman, [phone]. Left HIPAA compliant message requesting call back. Provided TCC's work hours and cellnumber. Need to complete initial assessment - patient has Alzheimer's dementia. Awaiting call back. Received message from bedside RN. She saw previous TCC note and wanted to alert TCC to being at bedside. Before TCC could make it to unit, had to leave. He told bedside RN he will be back around noon tomorrow. TCC will continue to follow. * Care Coordination - Gabe Preston RN - 01/17/2024 4:36 PM EST Attempted to call spouse, Sameer, at home number listed for patient ([phone]) - no number available for spouse despite being listed under emergency contacts. Phone rang with no answer and no VMpicked up. Called patient's sister, Inez Bowman, at [phone]. Left HIPAA compliant message requesting call back. Provided TCC's work hours and cell number. Need to complete initial assessment - patient has Alzheimer's dementia. Awaiting call back. Electronically signed by Gabe Preston RN on01/17/2024 at 4:38 PM Have not received call back yet. TCC will continue to follow and attempt patient's sister again tomorrow. * Care Coordination - Cherelle Larson RCP - 01/16/2024 2:01 PM EST Navigators received request from ED providers to assist with navigation after a CT chest 01/16/2024 identified a 2.5 x 1.8 cm left apical spiculated lung nodule and other smaller lung nodules up to 5 mm in left lower lung. Per EMR review, patient is a former smoker quit in 1989 and has a family history of cancer in her mom. She has issues with dementia/Alzheimer's and assists with providing history. Navigator will monitor inpatient progress and provider notes during hospitalization for fall. Will await possible inpatient pulmonary consult or assist with follow-up through the lung nodule clinic at discharge. documented in this [facility]02-28-2024 Note* Home Care - Juju Erickson RN - 01/21/2024 1:06 PM EST Pt/spouse declined home care services. PACC signing off. [id number]* Home Care - Juju Erickson RN - 01/21/2024 1:06 PM EST Pt/spouse declined home care services. PACC signing off. [id number] Hospital Discharge instructions* Discharge Instr - LOLA* Nikki Calvillo LPN - 01/21/2024 1:03 PM EST Continuity of Care Form Patient Name: Farzana Herron : 1940 Admit date: 01/16/2024 Discharge date: Code Status Order: Full Code Advance Directives: N Admitting Physician: Re Padilla MD PCP: Wayne Conde DO Discharging Nurse: Discharging Hospital Unit/Room#: B4-463/B4-463 A Discharging Unit Phone Number: Emergency Contact: Extended Emergency Contact Information Primary Emergency Contact: Inez Bowman [place] Relation: Sibling Secondary Emergency Contact: GermaineSameer Relation: Spouse Past Surgical History: Past Surgical History: Procedure Laterality Date BALLOON ANGIOPLASTY, ARTERY 06/[address] Martinez CARPAL TUNNEL RELEASE Bilateral 1987 CATARACT EXTRACTION Bilateral 12/09 [facility] CHOLECYSTECTOMY 2002 COLONOSCOPY 10/2018 med- neg- ? due COLONOSCOPY 08/2011 chronic diarrhea ([facility]) FOOT SURGERY HIATAL HERNIA REPAIR 10/2011 gastroplexy per Adonis ULNAR TUNNEL RELEASE Right 2002 UPPER GASTROINTESTINAL ENDOSCOPY 09/2011 GERD-uzair ulcer - s/p gastroplexy per Dr. Lamb 11/03 --neg CT abd 03/06 rech 10/07 ([facility]) UPPER GASTROINTESTINAL ENDOSCOPY 10/28/2016 [facility]- esoph stenosis and HH with reflux Immunization History: Immunization History Administered Date(s) Administered Influenza Whole 09/22/2009, 09/24/2013 Influenza, High Dose Seasonal, Preservative Free 11/10/2019 Influenza, High-dose Seasonal, Quadrivalent, Preservative Free 11/10/2019, 11/08/2020, 09/26/2021 Influenza, Seasonal, Quadrivalent, Adjuvanted 10/23/2023 Influenza, Unspecified 10/03/2016 Influenza, injectable, quadrivalent, preservative free 09/11/2018 Influenza, seasonal, injectable 10/03/2016 Moderna SARS-CoV-2 Vaccination 12/21/2020, 01/18/2021, 10/25/2021 Pneumococcal Conjugate PCV 13 10/11/2015 Pneumococcal Conjugate, Unspecified 07/25/2005, 09/14/2005 Pneumococcal Polysaccharide PPSV23 07/25/2005, 09/14/2005 Zoster, live 11/18/2014 Active Problems: Medical Problems Problem List * (Principal) Syncope and collapse Chronic systolic (congestive) heart failure (HCC) Essential hypertension H/O: UGI bleed Overview Signed 09/08/2022 10:57 AM by Interface, Incoming Problems- [facility] Conversion severe esophagitis History of DVT of lower extremity Overview Signed 09/08/2022 10:57 AM by Interface, Incoming Problems- [facility] Conversion IVC filter History of hypertension Overview Signed 09/08/2022 10:57 AM by Interface, Incoming Problems- [facility] Conversion off rx History of myocardial infarction 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 COPD (chronic obstructive pulmonary disease) ([facility]) Overview Signed 09/08/2022 10:57 AM by Interface, Incoming Problems- [facility] Conversion ex smoker since 1994 Lumbar degenerative disc disease Alzheimer's disease, unspecified (CODE) ([facility]) Irritable bowel syndrome Psoriasis Osteoporosis with pathological fracture Overview Signed 09/08/2022 10:57 AM by Interface, Incoming Problems- [facility] Conversion per BD 07/2012 - MRI thoracic spine DDD 10/07 prolia injections Thoracic compression fracture ([facility]) Overview Signed 09/08/2022 10:57 AM by Interface, Incoming Problems- [facility] Conversion horse riding - DDD 2013 MRI Anxiety GERD (gastroesophageal reflux disease) Overview Signed 09/08/2022 10:57 AM by Interface, Incoming Problems- [facility] 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 CT abd and mesenteric arteries OAB (overactive bladder) Collagenous colitis Overview Signed 09/08/2022 10:57 AM by Interface, Incoming Problems- [facility] Conversion with IBS Neuropathy Overview Signed 09/08/2022 10:57 AM by Interface, Incoming Problems- [facility] Conversion idiopathic per EMG lower ext Uzair ulcer Renal insufficiency LV dysfunction Overview Signed 09/08/2022 10:57 AM by Interface, Incoming Problems- [facility] Conversion EF 48 % Hypercholesterolemia Hypothyroid Isolation/Infection: No active isolations No active infections Nurse Assessment: Last Vital Signs: BP 131/67 Pulse 99 Temp (!) 35.8 C (96.5 F) (Temporal) Resp 20 Ht 1.499 m(4' 11) Wt 54 kg (119 lb 0.8 oz) SpO2 96% BMI 24.04 kg/m Last documented pain score (0-10 scale): Last Weight: Wt Readings from Last 1 Encounters: 01/21/24 54 kg (119 lb 0.8 oz) Mental Status: {LOLA Patient Mental Status:16374} IV Access: {LOLA IV Access:93772} Nursing Mobility/ADLs: Walking {REEMA ADL:::Independent} Transfer {REEMA ADL:::Independent} Bathing {REEMA ADL:::Independent} Dressing {REEMA ADL:::Independent} Toileting {REEMA ADL:::Independent} Feeding {REEMA ADL:::Independent} Roof Promenade Tile Setter {REEMA ADL:::Independent} Med Delivery {yes/no:83096} Wound Care Documentation and Therapy: Elimination: Continence: Bowel: {yes/no:00972} Bladder: {yes/no:48133} Urinary Catheter: {LOLA Urinary Catheter:71745} Colostomy/Ileostomy/Ileal Conduit: {YES / NO:} Date of Last BM: No intake or output data in the 24 hours ending 01/21/24 1302 I/O last 3 completed shifts: In: 240 (4.4 mL/kg) [P.O.:240] Out: - (0 mL/kg) Weight: 54 kg Safety Concerns: {LOLA Safety Concerns:90311} Impairments/Disabilities: {LOLA Impairments/Disabilities:73391} Nutrition Therapy: Current Nutrition Therapy: {LOLA Diet List:28277} Routes of Feeding: {routes of feedin} Liquids: {liquid consistency:30903} Daily Fluid Restriction: {daily fluid restriction:21404} Last Modified Barium Swallow with Video (Video Swallowing Test): {done not done:52184} Treatments at the Time of Hospital Discharge: Respiratory Treatments: Oxygen Therapy: {Therapy; copd oxygen:22185} Ventilator: {LOLA Ventilator:79721} Rehab Therapies: {GEN THERAPY DISCIPLINE SCAL:6947795} Weight Bearing Status/Restrictions: {POD WEIGHT BEARIN} Other Medical Equipment (for information only, NOT a DME order): {Assistive Devices DME:83570} Other Treatments: Patient's personal belongings (please select all that are sent with patient): {LOLA Patient Belongings:23970} RN SIGNATURE: {E-signature:00260} CASE MANAGEMENT/SOCIAL WORK SECTION Inpatient Status Date: Readmission Risk Assessment Score: @READMISSIONRISKDETAILS@ Discharging to Facility/ Agency Name: Address: Phone: Fax: Dialysis Facility (if applicable) Name: Address: Dialysis Schedule: Phone: Fax: Sales Promotion Manager/Inspector Welded Parts signature: {E-signature:26090} PHYSICIAN SECTION Prognosis: {Rehab Prognosis:84030} Condition at Discharge: {Patient Condition:82190} Rehab Potential (if transferring to Rehab): {Rehab Prognosis:41260} Recommended Labs or Other Treatments After Discharge: Physician Certification: I certify the above information and transfer of Farzana Herron is necessary for the continuing treatment of the diagnosis listed and that she requires {LOLA Level of Care:78393} for {greater less than:68580} 30 days. Update Admission H&P: {LOLA Changes in H&P:09136} PHYSICIAN SIGNATURE: {E-signature:97511} documented in this [facility]02-28-2024 Hospital course Narrative* Louann Saleem APRN - [facility] - 01/21/2024 10:03 AM EST Images from the original note were not included. Hospitalist Discharge Summary Farzana Herron : 1940 Admit date: 01/16/2024 Discharge date: 01/21/2024 Admitting Physician: Re Padilla MD Primary Care Physician: Wayne Conde DO Visit Status: inpatient Code Status: Full Code Acute, acute on chronic, unstable/uncontrolled chronic problems/discharge diagnoses: Syncope and fall: Telemetry Dc'd due to pt not complying. PT OT. NL EF, unlikely due to arrhythmia.EKG Qtc 433ms HFpEF: 61%, no WMA, improved from previous study, no active HF Alzheimer's dementia/-Delirium: Geriatrics consulted, continue donepezil and Remeron. Episode increased confusion, elevated BP, unable to redirect, 2/24, Seroquel given. Ordered prn Haldol, Geriatricinput. Concern for pain: program Tylenol Q 8 Hypokalemia: improved with K supplement Urinary urgency: will check Bladder scan PVRs, UA negative 01/16 Spiculated lung nodule: Consult pulmonology, pulm following, patient and do not want further investigation or treatment Proximal colitis, Nausea resolved, KUB: mild illus. Advance diet to soft, IV fluids dc'd, prn antiemetics. Consider GI consult. I&O, daily wts, health analytics consultant consult, tolerating diet , KUB shows resolved Sliding hiatal hernia: May influencing nausea Anemia:Chronic disease IV fluids stopped. hemoglobin >10 Stable chronic problems affecting care, new non-acute discharge diagnoses: COPD: inhaler CAD multivessel 2016: Continue DAPT Hypothyroidism: TSH NL Hypertension: increased Metoprolol tartrate 50 mg tid, added Cozaar 25 mg HLD: Will increase Lipitor to 80 mg given multivessel CAD Visual impairment Past Medical History: Diagnosis Date Alzheimer's disease, unspecified (CODE) ([facility]) 01/2021 Anxiety CAD (coronary artery disease) 06/2016 Dr. Martinez- AL-hypokinetic RV- RCA ballon angioplasty- EF 48% 08/10- Dr Gianna Garrett ulcer 2011 Carotid artery disease without cerebral infarction ([facility]) 09/2015 angiogram with <70 % stenosis Left ICA- defers repeat studies Collagenous colitis [address] Teague COPD (chronic obstructive pulmonary disease) ([facility]) 04/2017 ex smoker since 1994--CT also 12/11 Essential hypertension 09/26/2021 GERD (gastroesophageal reflux disease) 2010 [facility]-EGD 10/07 and 11/08 H/O colonoscopy 10/2018 [facility]- divert ds- no changes, ? repeat nec H/O: UGI bleed 10/2016 severe esophagitis History of DVT of lower extremity 10/2016 IVC filter History of hypertension 1999 off rx since 04/09 History of myocardial infarction 06/2016 LVEF 48 % History of rhabdomyolysis 07/2017 UGI bleed and Hypotension with CHF Hypercholesterolemia IBS (irritable bowel syndrome) with diarrhea LV dysfunction 07/2017 EF 48 % Neuropathy 09/2014 idiopathic per EMG lower ext OAB (overactive bladder) Osteoporosis with pathological fracture 2011 per BD-2013 MRI thoracic spine DDD -prolia injections -- L1 fx 2017 Other specified glaucoma Psoriasis Thoracic compression fracture (HCC) 1959 horse riding accident- DDD Procedures: Echo Hospital Course: 83-year-old female who presents with syncope and a fall. Patient has known historyof dementia, and at baseline she is confused and oriented to self. She also presented with nausea. COVID flu and RSV were negative. No evidence of UTI or other infection. Syncope work up was non acute. Patient tolerating diet. She worked with PT who recommend she use a walker, walker was ordered . Patient initially refused walker but after discussing with her the safety and if she falls she will be back in hospital , she was agreeable. Tried calling sister and today with no answer. in her room now and declined home health care for patient . See discharge diagnoses list above and medication adjustments below in med rec.The patient is discharged in improved and stable condition. Consults: IP CONSULT TO GERIATRICS Discharge Instructions: Diet: Dietary Orders (From admission, onward) Start Ordered 01/19/24 0937 Adult diet Easy to Chew Diet effective now Question: Diet type Answer: Easy to Chew 01/19/24 0936 Activity: as tolerated Recommended Outpatient Tests: Disposition: Patient discharged in stable condition to Home. Greater than 31 minutes spent discharging the patient and coming up with patient discharge plan. Vitals: BP 131/67 Pulse 99 Temp (!) 35.8 C (96.5 F) (Temporal) Resp 20 Ht 4' 11 (1.499 m) Wt 119 lb 0.8 oz (54 kg) SpO2 96% BMI 24.04 kg/m Pulse Ox: SpO2 Av.5 % Min: 96 % Max: 97 % Supplemental O2: Physical Exam Vitals and nursing note reviewed. Constitutional: General: She is not in acute distress. Appearance: Normal appearance. She is not ill-appearing, toxic-appearing or diaphoretic. HENT: Head: Normocephalic and atraumatic. Nose: Nose normal. Mouth/Throat: Mouth: Mucous membranes are moist. Eyes: Pupils: Pupils are equal, round, and reactive to light. Cardiovascular: Rate and Rhythm: Normal rate and regular rhythm. Pulmonary: Effort: Pulmonary effort is normal. Breath sounds: Normal breath sounds. Abdominal: General: Bowel sounds are normal. Palpations: Abdomen is soft. Musculoskeletal: General: Normal range of motion. Cervical back: Normal range of motion and neck supple. Skin: General: Skin is warm and dry. Neurological: General: No focal deficit present. Mental Status: She is alert. Mental status is at baseline. Psychiatric: Mood and Affect: Mood normal. Behavior: Behavior normal. Thought Content: Thought content normal. LABS: Recent Labs 01/19/24 1113 01/21/24 0247 NA 136 135 K 3.6 4.1 CL 102 105 CO2 27 27 BUN 9 25* CREATININE 0.79 0.96 GLUCOSE 109* 85 CALCIUM 8.6 8.1* Recent Labs 01/19/24 1113 01/21/24 0247 WBC 5.9 4.5 RBC 4.10 3.79* HGB 11.3* 10.3* HCT 34.9* 32.4* MCV 85.1 85.5 MCH 27.5 27.2 MCHC 32.4 31.8 RDW 14.4 14.9 PLT 278 233 MPV 9.4 11.6 Discharge Medications: Medication List START taking these medications cyanocobalamin 1000 MCG tablet Commonly known as: Vitamin B-12 Take 1 tablet (1,000 mcg) by mouth daily. Do not start before January 22, 2024. Start taking on: January 22, 2024 losartan 25 MG tablet Commonly known as: Cozaar Take 1 tablet (25 mg) by mouth daily. Do not start before January 22, 2024. Start taking on: January 22, 2024 metoprolol tartrate 50 MG tablet Commonly known as: Lopressor Take 1 tablet (50 mg) by mouth 3 times daily. polyethylene glycol (PEG) 3350 17 GM/SCOOP powder Commonly known as: Glycolax Take 17 g by mouth daily for 14 days. Take daily for constipation CHANGE how you take these medications atorvastatin 80 MG tablet Commonly known as: Lipitor Take 1 tablet (80 mg) by mouth Nightly. What changed: medication strength how much to take CONTINUE taking these medications acetaminophen 325 MG tablet Commonly known as: Tylenol albuterol 108 (90 Base) MCG/ACT inhaler Inhale 2 puffs every 6 hours as needed for wheezing or shortness of breath. Aspirin Low Dose 81 MG EC tablet Generic drug: aspirin TAKE 1 TABLET BY MOUTH EVERY MORNING calcium-vitamin D 500-200 MG-UNIT tablet clopidogrel 75 MG tablet Commonly known as: Plavix TAKE ONE TABLET AT 5PM donepezil 5 MG tablet Commonly known as: Aricept Take 1 tablet (5 mg) by mouth Nightly. ergocalciferol 1.25 MG (65437 UT) capsule Commonly known as: Vitamin D2 TAKE 1 CAPSULE BY MOUTH ONE TIME PER WEEK fluticasone 220 MCG/ACT inhaler Commonly known as: Flovent Inhale 2 puffs 2 times daily. gabapentin 300 MG capsule Commonly known as: Neurontin TAKE 1 CAPSULE BY MOUTH TWICE DAILY isosorbide mononitrate ER 60 MG 24 hr tablet Commonly known as: Imdur Take 1 tablet (60 mg) by mouth every morning. levothyroxine 50 MCG tablet Commonly known as: Synthroid, Levoxyl Take 1 tablet (50 mcg) by mouth every morning for 180 doses. loratadine 10 MG tablet Commonly known as: Claritin TAKE 1 TABLET BY MOUTH EVERY MORNING mirtazapine 7.5 MG tablet Commonly known as: Remeron Decrease to 7.5 mg at HS Mucus Relief 600 MG 12 hr tablet Generic drug: guaiFENesin TAKE 2 TABLETS BY MOUTH TWICE DAILY omega-3 1000 MG capsule Commonly known as: Fish Oil TAKE THREE CAPSULES IN THE MORNING Oyster Shell Calcium w/D 500-5 MG-MCG tablet Take 2 tablets by mouth every morning (before breakfast). pantoprazole 40 MG EC tablet Commonly known as: ProtoNix CHANGE TO ONE EACH EVENING BEFORE BEDTIME Spiriva HandiHaler 18 MCG inhalation capsule Generic drug: tiotropium Place 1 capsule (18 mcg) into inhaler and inhale daily. STOP taking these medications metoprolol succinate XL 50 MG 24 hr tablet Commonly known as: Toprol-XL sucralfate 1 g tablet Commonly known as: Carafate Where to Get Your Medications These medications were sent to [facility]/pharmacy #[id number] [address] atorvastatin 80 MG tablet cyanocobalamin 1000 MCG tablet losartan 25 MG tablet metoprolol tartrate 50 MG tablet polyethylene glycol (PEG) 3350 17 GM/SCOOP powder Recommended Follow-up: [facility] Geriatrics [address] [facility] [id number] Complexity of Follow up: [x] Moderate Complexity: follow up within 7-14 calendar days (27794) [] Severe Complexity: follow up within 7 calendar days (82473) Follow up Testing, Pending results or Referrals at Transitional Care Visit: [x] yes [] no Instructions to MA: Please call patient on day after discharge (must document patient contacted within 2 business days of discharge). Follow up questions for MA: 1. Did you get medications filled and taking them as instructed from discharge? 2. Are you following your discharge instructions from your hospital stay? 3. Please confirm patient is scheduled for a follow up appointment within the above time frame. Signed: LOUANN SALEEM APRN - SAND OPERATOR Division of Hospitalist Medicine [facility] 01/21/2024, 2:31 PM documented in this [facility]02-28-2024 Note* Care Coordination - Yessica Kaiser RN - 01/21/2024 8:04 AM EST Images from the original note were not included. Care Management Progress Note Patient remains on 4S for syncope and collapse Clinical updates: Patient and do not want any follow up on lung nodule. Nausea resolved, advancing diet. Possible ileus noted, awaiting decision for GI Cons, Discharge plan: Home vs home with [facility] Discharge obstacles: Awaiting clinical stability TCC will continue to follow. Discharge Milestones and Delays Expected Date/Time: 01/21/[address] discharge order Complete med reconciliation Case mgmt discharge readiness Clinical Stability Diagnsotic Workup Expected Discharge History Expected Date/Time Set By Reviewed At 01/21/2024 Yessica Kaiser RN 01/21/2024 8:04 AM Ileus- Nausea resolved, advancing diet GI Cons? Lung nodule- Pt and don't want f/u 01/21/2024 Yessica Kaiser RN 01/20/2024 8:17 AM Pulm- Neoplastic? Geriatrics saw- AMS due to illness and hospital Per ashley: DCP is home 01/21/2024 Yessica Kaiser RN 01/19/2024 8:14 AM Confused- Pulled out IV and wandering halls?? Geriatrics Cons 01/19/2024 Don Wasserman MD 01/16/2024 12:41 PM 01/19/2024 Don Wasserman MD 01/16/2024 11:52 AM Length of Stay (Days): 5 GMLOS: 2.4 [facility]02-28-2024 Note* Care Coordination - Yessica Kaiser RN - 01/21/2024 8:04 AM EST Images from the original note were not included. Care Management Progress Note Patient remains on 4S for syncope and collapse Clinical updates: Patient and do not want any follow up on lung nodule. Nausea resolved, advancing diet. Possible ileus noted, awaiting decision for GI Cons, Discharge plan: Home vs home with [facility] Discharge obstacles: Awaiting clinical stability TCC will continue to follow. Discharge Milestones and Delays Expected Date/Time: 01/21/[address] discharge order Complete med reconciliation Case mgmt discharge readiness Clinical Stability Diagnsotic Workup Expected Discharge History Expected Date/Time Set By Reviewed At 01/21/2024 Yessica Kaiser RN 01/21/2024 8:04 AM Ileus- Nausea resolved, advancing diet GI Cons? Lung nodule- Pt and don't want f/u 01/21/2024 Yessica Kaiser RN 01/20/2024 8:17 AM Pulm- Neoplastic? Geriatrics saw- AMS due to illness and hospital Per ashley: DCP is home 01/21/2024 Yessica Kaiser RN 01/19/2024 8:14 AM Confused- Pulled out IV and wandering halls?? Geriatrics Cons 01/19/2024 Don Wasserman MD 01/16/2024 12:41 PM 01/19/2024 Don Wasserman MD 01/16/2024 11:52 AM Length of Stay (Days): 5 GMLOS: 2.4 [facility]02-27-2024 Note* Care Coordination - Cherelle Larson RCP - 01/20/2024 4:15 PM EST Navigator reviewed inpatient consult from pulmonary providers. Patient and continue to decline lung nodule follow-up. They are aware this could be a potential malignancy, but given patient's age and overall health, they do not wish to pursue follow-up. Navigators to sign off. [id number]* Care Coordination - Cherelle Larson RCP - 01/20/2024 4:15 PM EST Navigator reviewed inpatient consult from pulmonary providers. Patient and continue to decline lung nodule follow-up. They are aware this could be a potential malignancy, but given patient's age and overall health, they do not wish to pursue follow-up. Navigators to sign off. [id number] History of Present illness Narrative* Bernice Robledo, PT - 01/20/2024 3:06 PM EST Images from the original note were not included. PHYSICAL THERAPY [facility] Initial Evaluation Name/MRN: Farzana Herron ([id number]) Evaluation Date: 01/20/2024 Date of : 1940 Admission Date: 01/16/2024 8:17 AM Age: 83 y.o. Room/Bed: Banner/Banner A Discharge Recommendation: 24 hour supervision or assist, Home with Home health PT Equipment Needed: No Assessment IMPRESSION: Pt admitted 01/16 with a fall and syncope. Pt with suspected ileus on xray of abdomen and lung nodule on chest CT. Pt with significant history of dementia and agitation. Pt presents with the below deficits limiting her functional independence. On evaluation patient requires SBA for bed mobility, CGA for transfers and Kenisha for ambulation with SPIKE MACHINE FEEDER. Pt would benefit from use of FWW for balance, however is adamantly declining. Pt should benefit from skilled PT to increase functional independence and safety. Rec [facility] PT and 24hr sup. Prognosis: good Performance Deficits /Impairments: Decreased Functional Mobility, Decreased Strength, Decreased Safety Awareness, Decreased Cognition, Decreased Endurance, Decreased Balance, and Decreased Posture Decision Making: Medium Complexity Subjective Pt lying in bed and agreeable to therapy. Friend at bedside. Pain: Pt denies any current pain. Past Medical History: Past Medical History: Diagnosis Date Alzheimer's disease, unspecified (CODE) ([facility]) 01/2021 Anxiety CAD (coronary artery disease) 06/2016 Dr. Martinez- AL-hypokinetic RV- RCA ballon angioplasty- EF 48% 08/10- Dr Gianna Garrett ulcer 2010 Carotid artery disease without cerebral infarction ([facility]) 09/2015 angiogram with <70 % stenosis Left ICA- defers repeat studies Collagenous colitis [address] Teague COPD (chronic obstructive pulmonary disease) ([facility]) 04/2017 ex smoker since 1994--CT also 12/11 Essential hypertension 09/26/2021 GERD (gastroesophageal reflux disease) 2010 [facility]-EGD 10/07 and 11/08 H/O colonoscopy 10/2018 [facility]- divert ds- no changes, ? repeat nec H/O: UGI bleed 10/2016 severe esophagitis History of DVT of lower extremity 10/2016 IVC filter History of hypertension 1999 off rx since 04/09 History of myocardial infarction 06/2016 LVEF 48 % History of rhabdomyolysis 07/2017 UGI bleed and Hypotension with CHF Hypercholesterolemia IBS (irritable bowel syndrome) with diarrhea LV dysfunction 07/2017 EF 48 % Neuropathy 09/2014 idiopathic per [facility] lower ext OAB (overactive bladder) Osteoporosis with pathological fracture 2011 per -2013 MRI thoracic spine DDD -prolia injections -- L1 fx 2016 Other specified glaucoma Psoriasis Thoracic compression fracture ([facility]) 1960 horse riding accident- DDD Past Surgical History: Past Surgical History: Procedure Laterality Date BALLOON ANGIOPLASTY, ARTERY 06/[address] Martinez CARPAL TUNNEL RELEASE Bilateral 1987 CATARACT EXTRACTION Bilateral 12/09 [facility] CHOLECYSTECTOMY 2001 COLONOSCOPY 10/2018 [facility]- neg- ? due COLONOSCOPY 08/2011 chronic diarrhea (Zahida) FOOT SURGERY HIATAL HERNIA REPAIR 10/2011 gastroplexy per Adonis ULNAR TUNNEL RELEASE Right 2003 UPPER GASTROINTESTINAL ENDOSCOPY 09/2011 GERD-uzair ulcer - s/p gastroplexy per Dr. Lamb 11/03 --neg CT abd 03/06 rech 10/07 ([facility]) UPPER GASTROINTESTINAL ENDOSCOPY 10/28/2016 [facility]- esoph stenosis and HH with reflux Admission Diagnosis: Patient Active Problem List Diagnosis Date Noted Syncope and collapse 01/16/2024 Chronic systolic (congestive) heart failure ([facility]) 04/15/2022 Essential hypertension 09/26/2021 Renal insufficiency 09/26/2021 Alzheimer's disease, unspecified (CODE) ([facility]) 06/25/2021 LV dysfunction 11/20/2017 Hypercholesterolemia 11/20/2017 Uzair ulcer 08/25/2017 Lumbar degenerative disc disease 05/01/2017 History of DVT of lower extremity 04/02/2017 History of hypertension 04/02/2017 Hypothyroid 04/02/2017 H/O: UGI bleed 08/19/2016 History of myocardial infarction 08/19/2016 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 08/19/2016 COPD (chronic obstructive pulmonary disease) ([facility]) 02/07/2016 Irritable bowel syndrome 06/08/2015 Psoriasis 06/08/2015 Osteoporosis with pathological fracture 06/08/2015 Thoracic compression fracture ([facility]) 06/08/2015 Anxiety 06/08/2015 GERD (gastroesophageal reflux disease) 06/08/2015 OAB (overactive bladder) 06/08/2015 Collagenous colitis 06/08/2015 Neuropathy 06/08/2015 Medical Precautions: No active isolations Proper PPE donned/doffed in accordance with facility standards. Fall Risk: [place] Fall Risk Score: 85 (High Risk) Precautions/Restrictions: Seizure Precautions Family/Caregiver Present: family friend Overall Cognitive Status: Exceptions - Attention span: attends with cues to redirect - Memory: decreased recall of recent events and decreased short term memory - Safety judgement: decreased awareness of need for assistance and decreased awareness of need for safety - Problem solving: assistance required to generate solutions, assistance required to implement solutions, assistance required to identify errors made, and assistance required to correct errors made - Sequencing: requires cues for some Overall Orientation Status: Oriented to Place and Oriented to Person Vision: no visual deficits Hearing: normal Social/Functional History Patient admitted from home. Lives With: Spouse Type of Home: single family home Home Layout: Single Level Home Home Access: Level Entry Bathroom Shower/Tub: Washes at sink/bed- shower in basement and pt reporting she does no go in basement Toilet: Standard Home Equipment: cane Homemaking Responsibilities: Independent Receives Help From: Spouse Active Supervisor Air Conditioning Installer: N/A Prior Level of Function ADL Assistance: Independent Ambulation Assistance: Independent Transfer Assistance: Independent Objective Lower Extremity Assessment AROM: WFL PROM: WFL Strength: WFL Bed Mobility: Supine to sit: SBA Sit to supine: SBA Scooting: SBA Cues for initiation and some sequencing. Transfers Sit to stand: Contact Guard Stand to sit: Contact Guard Denies dizziness. CGA for safety and cues for initiation and to stay on task. Ambulation Ambulation 1 Assistive device(s) used: none Assist level: Min Assist Distance (ft): ~60'x1 Quality of gait: reciprocal stepping, shuffling, slow chucky Pt with short shuffling steps and demos general unsteadiness. Pt requires SPIKE MACHINE FEEDER for balance and demosuse of handrail/furniture to steady. Pt declining use of FWW and states she uses a cane in the community. Outcome Measures AM-PAC How much HELP from another person do you currently need Turning from your back to your side while in a flat bed without using bedrails?: A Little Moving from lying on your back to sitting on the side of a flat bed without using bedrails?: A Little Moving to and from a bed to a chair (including a wheelchair)?: A Little Standing up from a chair using your arms (wheelchair or bedside chair)?: A Little Walking in a hospital room?: A Little Stair climbing assessed?: No AM-PAC Inpatient Mobility Raw Score (No Stairs) : 15 Plan Pt would benefit from skilled acute PT services to address Strengthening, ROM, Balance Training, Functional Mobility Training, Endurance Training, Gait Training, Pain Management, Safety Education andTraining, Patient/Caregiver Training, Equipment Evaluation/Education, and Positioning. Frequency: 4 visits Barriers: Confusion and Decreased endurance Safety/Education Safety Safety Devices in place: All fall risk precautions in place, call light within reach, left in bed, bed alarm in place, gait belt, patient at risk for falls, and nurse notified Restraints: N/A Education Education Given To: patient Education Provided: PT Role, PT Goals, Gait Training, Plan of Care, Precautions, Transfer Training,Energy Conservation, Fall Prevention Education, and Discharge Recommendations Education Method: Verbal Barriers to Learning: Cognition Education Outcome: Verbalized Understanding and Continued Education Needed Goals Patient Stated Goal: To return home. Encounter Problems Encounter Problems (Active) Balance Patient will maintain dynamic standing balance for 5 minutes with SBA in order to demonstrate decreased risk of falling. Start: 01/20/24 Expected End: 01/23/24 Exercise Patient will complete lower extremity exercises for 1-2 sets / 5-10 reps in order to improve strength and activity tolerance for mobility. Start: 01/20/24 Expected End: 01/23/24 Mobility Patient will ambulate 100 feet with supervision and least restrictive device in order to improve safety and independence with mobility. Start: 01/20/24 Expected End: 01/23/24 Transfers Patient will perform bed mobility with supervision in order to improve independence and prepare forout of bed mobility. Start: 01/20/24 Expected End: 01/23/24 Patient will complete functional transfer with least restrictive device with supervision in order to prepare for ambulation. Start: 01/20/24 Expected End: 01/23/24 Therapy Time Individual Co-treatment Time In 1435 Time Out 1450 Minutes 15 Bernice Robledo PT Patient's Physical Therapy Plan of Care supervision is transferred to a [facility] Physical Therapist. Goals and/or treatment plan was established in collaboration with patient/family/other representatives. * Zunilda Diamond APRN - SAND OPERATOR - 01/20/2024 10:42 AM EST [facility] Geriatric Medicine Inpatient Consult Service Admission Date: 01/16/2024 Assessment Principal Problem: Syncope and collapse Plan Acute Metabolic Encephalopathy --Improving. MAR reviewed - no use of PRN Haldol or Seroquel. --Etiology likely hospital environment, acute illness, medications. Patient with recent fall at home with LOC per . CT has shown Lung nodules-patient and have declined lung nodule follow up/workup. requests Full Code. Abdominal xray 01/18 - mild ileus. Primary managing. --reviewed home medications - Resumed Gabapentin 200mg twice a day on 01/19 (home dose 300mg twice aday) to prevent withdrawal. reports patient has history of back pain and fractures. --Encourage PO intake, time up in chair, family visits, supervised ambulation, and sleep hygiene --If agitated, assess for and consider treating for pain --QTc= 433 --[place] PRN Seroquel and Haldol for ONLY if danger to self/others/treatment Continue Seroquel 12.5mg twice a day PRN 1st line and continue Haldol 0.5mg IM every 6 hours as needed second line for agitation --Continue scheduled Melatonin at night --Monitor for constipation/urinary retention - last BM 01/20 watery (received Miralax this am); PVR ordered --Possible medication contributions: Gabapentin withdrawal Dementia -has been diagnosed previously with Alzheimer's based on chart review; on Aricept 5mg daily -recommend follow up at [facility] for more in depth cognitive testing when in usual state of health -Has been on Remeron 7.5mg every HS. Reports some trouble sleeping. - B12 278, will start daily PO supplement Debility -PT today - recommends 24 hour supervision or assist, home with home PT. Ambulated 60 ft min assistwithout device. -uses a cane at home -Vit D level 37 Follow-up: will follow with you Subjective Chief Complaint: confusion Geriatrics consulted for falls and Dementia HPI- The patient is known to me. 83 y.o. year-old female with PMH of Alzheimer's, anxiety, CAD, uzair ulcer, Carotid artery disease,COPD, HTN, stroke, GERD, Upper GI bleed due to esophagitis, , chronic systolic heart failure, colitis, hypothyroidism, history of DVT (IVC filter), Neuropathy, OAB, osteoporosis, chronic back pain presented to [facility] on 01/16/24 with complaints of syncope and fall. She was going to bathroom when heard a loud noise and reports patient was briefly unconscious. Patient complained of nausea. Admitted with syncope, lung nodule, dehydration, colitis, hypokalemia. Interval History: Remains on general medical/surgical floor . Nursing reports patient doing well. Has been sleeping often today. Patient denies pain. Knows she is in hospital. States she is having frequent BM. Review of Systems Constitutional: Negative for fatigue. Respiratory: Negative for shortness of breath. Gastrointestinal: Negative for abdominal pain. Genitourinary: Negative for difficulty urinating and dysuria. Musculoskeletal: Negative for arthralgias. Psychiatric/Behavioral: Positive for confusion. Negative for sleep disturbance. Objective BP 123/73 (BP Location: Right arm, Patient Position: Lying) Pulse 72 Temp 36.6 C (97.8 F) (Temporal) Resp 18 Ht 4' 11 (1.499 m) Wt 110 lb 10.7 oz (50.2 kg) SpO2 92% BMI 22.35 kg/m Intake/Output Summary (Last 24 hours) at 01/20/2024 1042 Last data filed at 01/20/2024 0949 Gross per 24 hour Intake 240 ml Output -- Net 240 ml Wt Readings from Last 3 Encounters: 01/20/24 110 lb 10.7 oz (50.2 kg) 10/23/23 122 lb (55.3 kg) 07/17/23 121 lb (54.9 kg) Current Facility-Administered Medications: acetaminophen (Tylenol) tablet 650 mg, 650 mg, Oral, q6h PRN OR acetaminophen (Tylenol) suppository 650 mg, 650 mg, Rectal, q6h PRN, Re Padilla MD acetaminophen (Tylenol) tablet 650 mg, 650 mg, Oral, q8h, ANGELLA Ramirez CNP, 650 mg at 01/20/24 0820 albuterol 108 (90 Base) MCG/ACT inhaler 2 puff, 2 puff, Inhalation, q6h PRN, Re Padilla MD, 2 puff at 01/17/24 09 aspirin EC tablet 81 mg, 81 mg, Oral, q AM, Re Padilla MD, 81 mg at 01/20/24 08 atorvastatin (Lipitor) tablet 80 mg, 80 mg, Oral, Nightly, ANGELLA Ramirez CNP, 80 mg at 01/19/242123 clopidogrel (Plavix) tablet 75 mg, 75 mg, Oral, Daily, Re Padilla MD, 75 mg at 01/20/24822 donepezil (Aricept) tablet 5 mg, 5 mg, Oral, Nightly, Re Padilla MD, 5 mg at 01/19/242123 enoxaparin (Lovenox) syringe 40 mg, 40 mg, SubCUTAneous, Daily, Re Padilla MD, 40 mg at 01/20/24 08 ergocalciferol (Vitamin D2) capsule 1.25 mg, 1.25 mg, Oral, Weekly, Re Padilla MD, 1.25 mg at 01/17/24 0924 fluticasone (Flovent) 220 MCG/ACT inhaler 2 puff, 2 puff, Inhalation, BID, Re Padilla MD, 2 puff at 01/20/24 0818 gabapentin (Neurontin) capsule 200 mg, 200 mg, Oral, BID, Zunilda Ezlaurae, LABOR AND EMPLOYMENT [employer] - SAND OPERATOR, 200 mg at 01/20/24 0820 haloperidol (Haldol) tablet 0.5 mg, 0.5 mg, Oral, q6h PRN, Zunilda Diamond [employer] EMPLOYMENT [employer] - SAND OPERATOR isosorbide mononitrate ER (Imdur) 24 hr tablet 60 mg, 60 mg, Oral, q AM, Re Padilla MD, 60 mg at 01/20/24 0828 levothyroxine (Synthroid, Levoxyl) tablet 50 mcg, 50 mcg, Oral, q AM, Re Padilla MD, 50 mcg at 01/20/24 0828 losartan (Cozaar) tablet 25 mg, 25 mg, Oral, Daily, ANGELLA Ramirez CNP, 25 mg at 01/20/24 0828 melatonin tablet 3 mg, 3 mg, Oral, Nightly, Zunilda Diamond APRN - SAND OPERATOR, 3 mg at 01/19/242123 metoprolol tartrate (Lopressor) tablet 50 mg, 50 mg, Oral, TID, Adrien Curry APRN - TONIE, 50 mg at 01/20/24 0805 mirtazapine (Remeron) tablet 7.5 mg, 7.5 mg, Oral, Nightly, Re Padilla MD, 7.5 mg at 01/19/242123 ondansetron ODT (Zofran-ODT) disintegrating tablet 4 mg, 4 mg, Oral, q8h PRN, 4 mg at 01/17/24 2206OR ondansetron (Zofran) injection 4 mg, 4 mg, IntraVENous, q6h PRN, Re Padilla MD, 4 mg at 01/17/24 1425 pantoprazole (ProtoNix) EC tablet 40 mg, 40 mg, Oral, qAM AC, Re Padilla MD, 40 mg at 01/19/24 0555 perflutren protein A microsphere (Optison) 3 mL in sodium chloride (PF) 0.9 % 10 mL IV syringe, 0-10 mL, IntraVENous, Once PRN, Re Padilla MD polyethylene glycol (PEG) 3350 (Miralax) packet 17 g, 17 g, Oral, Daily PRN, Re Padilla MD, 17 g at 01/20/24 0806 QUEtiapine (SEROquel) tablet 12.5 mg, 12.5 mg, Oral, BID PRN, Zunilda Hannone, LABOR AND EMPLOYMENT [employer] - TNOIE tiotropium (Spiriva Respimat) 2.5 MCG/ACT inhaler 2 puff, 2 puff, Inhalation, Daily, Re Padilla MD, 2 puff at 01/20/24 0814 Physical Exam Constitutional: General: She is not in acute distress. HENT: Head: Normocephalic. Mouth/Throat: Mouth: Mucous membranes are moist. Cardiovascular: Rate and Rhythm: Normal rate and regular rhythm. Pulmonary: Effort: Pulmonary effort is normal. No respiratory distress. Breath sounds: Normal breath sounds. No wheezing. Abdominal: General: Bowel sounds are normal. There is no distension. Palpations: Abdomen is soft. Tenderness: There is no abdominal tenderness. Musculoskeletal: Right lower leg: No edema. Left lower leg: No edema. Skin: Findings: Bruising (upper arms) present. Neurological: Mental Status: She is alert. Comments: Following commands today Oriented to self, place, Month, year Psychiatric: Attention and Perception: She is inattentive. Behavior: Behavior is cooperative. Cognition and Memory: Cognition is impaired. Comments: Slightly Irritated with questions, better today Labs and Imaging: Recent Results (from the past 24 hour(s)) Vitamin B12 Collection Time: 01/19/24 11:13 AM Result Value Ref Range VITAMIN B12 278 239 - 931 pg/mL CBC auto differential Collection Time: 01/19/24 11:13 AM Result Value Ref Range Auto WBC 5.9 3.6 - 10.7 10*3/uL RBC 4.10 3.8 - 5.20 10*6/uL Hemoglobin 11.3 (L) 11.7 - 16.0 g/dL Hematocrit 34.9 (L) 35.0 - 47.0 % MCV 85.1 80.0 - 98.0 fL MCH 27.5 26.0 - 34.0 pg MCHC 32.4 32.0 - 36.0 % RDW 14.4 11.5 - 14.5 % Platelets 278 140 - 440 10*3/uL MPV 9.4 7.4 - 12.4 fL nRBC 0.0 0.0 - 2.0 /100 WBCs Neutrophils Relative 65.2 40.0 - 80.0 % Lymphocytes Relative 19.5 (L) 20.0 - 40.0 % Monocytes Relative 12.6 (H) 2.0 - 10.0 % Eosinophils Relative 2.2 1.0 - 6.0 % Basophils Relative 0.5 0.0 - 2.0 % Neutrophils Absolute 3.9 1.8 - 7.0 10*3/uL Lymphocytes Absolute 1.2 1.0 - 4.3 10*3/uL Monocytes Absolute 0.7 0.0 - 0.8 10*3/uL Eosinophils Absolute 0.1 0.0 - 0.5 10*3/uL Basophils Absolute 0.0 0.0 - 0.2 10*3/uL Basic metabolic panel Collection Time: 01/19/24 11:13 AM Result Value Ref Range SODIUM 136 135 - 145 mmol/L POTASSIUM 3.6 3.5 - 5.1 mmol/L CHLORIDE 102 98 - 107 mmol/L CARBON DIOXIDE 27 22 - 30 mmol/L UREA NITROGEN 9 7 - 17 mg/dL CREATININE 0.79 0.52 - 1.04 mg/dL GLUCOSE 109 (H) 70 - 100 mg/dL CALCIUM 8.6 8.4 - 10.4 mg/dL ANION GAP 7 3 - 13 mmol/L eGFR 73.9 >60.0 mL/min/1.73m*2 Vitamin D Deficiency Screening (Vit D 25) Collection Time: 01/20/24 2:13 AM Result Value Ref Range VIT D 25-OH, TOTAL 37 30 - 100 ng/mL Lab Results Component Value Date TSH 1.283 01/17/2024 Lab Results Component Value Date [id number] 278 01/19/2024 Lab Results Component Value Date VITD25 37 01/20/2024 Reviewed: allergies, previous encounters, imaging, active problem lists, medications, and labs * Lamar Rhoades OT - 01/20/2024 10:32 AM EST Images from the original note were not included. OCCUPATIONAL THERAPY [facility] Initial Evaluation Name/MRN: Farzana Herron ([id number]) Evaluation Date: 01/20/2024 Date of : 1940 Admission Date: 01/16/2024 8:17 AM Age: 83 y.o. Room/Bed: [facility]/Banner A Discharge Recommendation: Continue to assess pending progress, Half-Way Facility Equipment Needed: No (TBD at next level of care) Assessment IMPRESSION: Pt admitted 01/16 with syncope. Pt found to have acute metabolic encephalopathy. Pt withhx of dementia. Pt is independent with ADLs and functional mobility without device at baseline. At time of eval, pt is SBA-min A for ADLs and min A for functional mobility. Pt is limited by weakness, dizziness, balance, cognition, safety, and fatigue. Pt is functioning below baseline and would benefit from skilled OT services to maximize safety and independence with ADLs and functional mobility. Rec SNF pending progress. Performance Deficits /Impairments: Decreased Functional Mobility, Decreased ADL status, Decreased Strength, Decreased Safety Awareness, Decreased Cognition, Decreased Endurance, Decreased Balance, and Decreased High Level IADLs Prognosis: Fair Decision Making: Medium Complexity Subjective Pt sitting EOB with nursing students at arrival. Pt ok to see per RN. No lines or tubes. Pt was pleasant and agreeable to OT eval. Orthostatic vitals: Sitting BP: 116/67 HR: 78 Standing BP: 97/57 BP: 84 Pain: Pt denies any current pain. Past Medical History: Past Medical History: Diagnosis Date Alzheimer's disease, unspecified (CODE) ([facility]) 01/2021 Anxiety CAD (coronary artery disease) 06/2016 Dr. Martinez- AL-hypokinetic RV- RCA ballon angioplasty- EF 48% 08/10- Dr Gianna Garrett ulcer 2011 Carotid artery disease without cerebral infarction ([facility]) 09/2015 angiogram with <70 % stenosis Left ICA- defers repeat studies Collagenous colitis [address] Teague COPD (chronic obstructive pulmonary disease) ([facility]) 04/2017 ex smoker since 1994--CT also 12/11 Essential hypertension 09/26/2021 GERD (gastroesophageal reflux disease) 2010 Ahmed-EGD 10/07 and 11/08 H/O colonoscopy 10/2018 Ahmed- divert ds- no changes, ? repeat nec H/O: UGI bleed 10/2016 severe esophagitis History of DVT of lower extremity 10/2016 IVC filter History of hypertension 1999 off rx since 04/09 History of myocardial infarction 06/2016 LVEF 48 % History of rhabdomyolysis 07/2017 UGI bleed and Hypotension with CHF Hypercholesterolemia IBS (irritable bowel syndrome) with diarrhea LV dysfunction 07/2017 EF 48 % Neuropathy 09/2014 idiopathic per [facility] lower ext OAB (overactive bladder) Osteoporosis with pathological fracture 2011 per [facility]-2013 MRI thoracic spine DDD -prolia injections -- L1 fx 2016 Other specified glaucoma Psoriasis Thoracic compression fracture (HCC) 1960 horse riding accident- DDD Past Surgical History: Past Surgical History: Procedure Laterality Date BALLOON ANGIOPLASTY, ARTERY 06/[address] Martinez CARPAL TUNNEL RELEASE Bilateral 1987 CATARACT EXTRACTION Bilateral 12/09 [facility] CHOLECYSTECTOMY 2002 COLONOSCOPY 10/2018 Ahmed- neg- ? due COLONOSCOPY 08/2011 chronic diarrhea ([facility]) FOOT SURGERY HIATAL HERNIA REPAIR 10/2011 gastroplexy per Adonis ULNAR TUNNEL RELEASE Right 2003 UPPER GASTROINTESTINAL ENDOSCOPY 09/2011 GERD-uzair ulcer - s/p gastroplexy per Dr. Lamb 11/03 --neg CT abd 03/06 rech 10/07 ([facility]) UPPER GASTROINTESTINAL ENDOSCOPY 10/28/2016 [facility]- esoph stenosis and HH with reflux Admission Diagnosis: Patient Active Problem List Diagnosis Date Noted Syncope and collapse 01/16/2024 Chronic systolic (congestive) heart failure (HCC) 04/15/2022 Essential hypertension 09/26/2021 Renal insufficiency 09/26/2021 Alzheimer's disease, unspecified (CODE) (HCC) 06/25/2021 LV dysfunction 11/20/2017 Hypercholesterolemia 11/20/2017 Uzair ulcer 08/25/2017 Lumbar degenerative disc disease 05/01/2017 History of DVT of lower extremity 04/02/2017 History of hypertension 04/02/2017 Hypothyroid 04/02/2017 H/O: UGI bleed 08/19/2016 History of myocardial infarction 08/19/2016 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 08/19/2016 COPD (chronic obstructive pulmonary disease) ([facility]) 02/07/2016 Irritable bowel syndrome 06/08/2015 Psoriasis 06/08/2015 Osteoporosis with pathological fracture 06/08/2015 Thoracic compression fracture ([facility]) 06/08/2015 Anxiety 06/08/2015 GERD (gastroesophageal reflux disease) 06/08/2015 OAB (overactive bladder) 06/08/2015 Collagenous colitis 06/08/2015 Neuropathy 06/08/2015 Medical Precautions: No active isolations Proper PPE donned/doffed in accordance with facility standards. Fall Risk: [place] Fall Risk Score: 85 (High Risk) Precautions/Restrictions: N/A Family/Caregiver Present: none Overall Cognitive Status: Exceptions - Following commands: follows one step commands with increased time - Attention span: attends with cues to redirect - Memory: decreased short term memory - Safety judgement: decreased awareness of need for assistance and decreased awareness of need for safety - Problem solving: assistance required to generate solutions, assistance required to implement solutions, assistance required to identify errors made, assistance required to correct errors made, and decreased awareness of errors - Insights: decreased awareness of deficits Overall Orientation Status: Oriented x4 Social/Functional History Patient admitted from home. Lives With: Spouse Type of Home: single family home Home Layout: Single Level Home Home Access: Level Entry Bathroom Shower/Tub: Washes at sink/bed- shower in basement and pt reporting she does no go in basement Toilet: Standard Home Equipment: cane Homemaking Responsibilities: Independent Receives Help From: Spouse Active Supervisor Air Conditioning Installer: N/A Prior Level of Function ADL Assistance: Independent Ambulation Assistance: Independent Transfer Assistance: Independent Objective ADLs Grooming: SBA LE Dressing: Min Assist Pt doffed socks sitting EOB using figure 4 technique with SBA. Pt required min A to thread toes into socks and able to manage the remainder of the way on. Pt compelted hair combing sitting EOB with SBA. Upper Extremity Assessment AROM: WFL PROM: WFL Strength: Exceptions: mild weakness, grossly 4/5 Vision: wears glasses at all times and and are being used during the eval Hearing: normal Bed Mobility Sit to supine: Min Assist Pt required min A for BLE mgmt into bed Transfers/Functional Mobility Sit to stand: Min Assist Stand to sit: Min Assist Functional mobility: Min Assist Pt required min A to stand from EOB without device x2 trials. Pt ambulating to/from door with min Aand shuffled steps. Pt reporting increased dizziness with ambulation. After returning to EOB, pt asked to trial ambulation with fww, however declined. Pt using environmental supports during ambulation to assist with stabilization. Device(s) used: none AM-PAC AM-PAC Inpatient Daily Activity Raw Score: 19 ADL Inpatient CMS G-Code Modifier: CK Plan Pt would benefit from skilled acute OT services to address Strengthening, ROM, Balance Training, Functional Mobility Training, Endurance Training, Cognitive Reorientation, Pain Management, Safety Education and Training, Patient/Caregiver Training, Equipment Evaluation/Education, Self-Care/ADL Training, Home Management Training, and Cognitive/Perceptual Training. Frequency: 7 visits during current hospital admission or until additional recommendations are made Barriers: Confusion, Limited insight into deficits, and Decreased endurance Prognosis: fair Safety/Education Safety Safety Devices in place: All fall risk precautions in place, call light within reach, left in bed, bed alarm in place, gait belt, patient at risk for falls, and nurse notified Restraints: N/A Education Education Given To: patient Education Provided: OT Role, Plan of Care, Transfer Training, Equipment, Fall Prevention Education,and Discharge Recommendations Education Method: Verbal, Demonstration, and Teach Back Barriers to Learning: Cognition Education Outcome: Verbalized Understanding and Continued Education Needed Goals Patient Stated Goal: none stated Encounter Problems Encounter Problems (Active) Balance Patient will tolerate standing with SUP for 3 minutes to allow for increased participation in functional activities Start: 01/20/24 Expected End: 01/27/24 Dressings Lower Extremities Patient will dress lower body with SUP Start: 01/20/24 Expected End: 01/27/24 Mobility Patient will demonstrate functional ambulation with SUP Start: 01/20/24 Expected End: 01/27/24 Toileting Patient will complete toileting tasks at standard toilet with supervision. Start: 01/20/24 Expected End: 01/27/24 Transfers Patient will complete functional transfer with least restrictive device with supervision in order to prepare for ambulation. Start: 01/20/24 Expected End: 01/27/24 Therapy Time Individual Co-treatment Time In 0932 Time Out 0952 Minutes 20 Timed Code Treatment Minutes: 8 Minutes (1 TA) Lamar Rhoades OT Patient's Occupational Therapy Plan of Care supervision is transferred to a [facility] Occupational Therapist. Goals and/or treatment plan was established in collaboration with patient/family/other representatives. * Juanita Whittington MD - 01/20/2024 10:12 AM EST Images from the original note were not included. [facility] [place] [facility] [place] [address] [place] [id number] Patient - Farzana Herron, Age - 83 y.o. - 1940 Room Number - [id number] A Consulting - ANGELLA Melo* Primary Care Physician - Wayne Conde DO Date of Admission - 01/16/2024 8:17 AM Hospital Day - 4 Chief Complaint Farzana Herron is a 83 y.o. female who pulmonary is following for lung nodule Interval History Patient awake and alert appears slightly pale no acute distress She is pleasant today answering the question appropriately Does remember about the lung nodule which we discussed yesterday with her and her by the bedside Patient declined any further workup for the lung nodule realizing that each may be potentially a neoplasm Patient has been did agree with patient decision not to pursue lung nodule any further All other systems reviewed Objective Vitals: BP 123/73 (BP Location: Right arm, Patient Position: Lying) Pulse 72 Temp 36.6 C (97.8 F) (Temporal) Resp 18 Ht 4' 11 (1.499 m) Wt 135 lb (61.2 kg) SpO2 92% BMI 27.27 kg/m Pulse Ox: SpO2 Av % Min: 92 % Max: 94 % Supplemental O2: I/O 24HR INTAKE/OUTPUT: Intake/Output Summary (Last 24 hours) at 01/20/2024 1012 Last data filed at 01/20/2024 0949 Gross per 24 hour Intake 240 ml Output -- Net 240 ml Exam General appearance: She is awake and alert resting on the bed No respiratory distress HEENT: Normocephalic, atraumatic. Pupils equil and round, External ear normal, conjunctivae normal,negative for scleral icterus. No congestion. Neck: ROM normal, supple, trachea midline. No lymphadenopathy Cardiovascular: Regular rate and rhythm. Heart sounds normal. Negative for murmur, friction rub or gallop. Pulmonary: Effort normal, no respiratory distress. Abdomen: Soft, non distended, non tender, bowel sounds normal. No palpable masses. No Hepatomegaly Musculoskeletal: ROM normal, Negative for swelling, tenderness or deformity. Skin: Warm, dry. Skin color, texture, turgor normal. Negative for rashes or lesions. Extremities: No clubbing, cyanosis, or extremity edema Neurological: No focal deficits. Alert and oriented x 2. Cranial nerves II-XII are intact Lymphatics: No cervical or axillary lymphadenopathy Psychiatric: Mood, behavior, thought content normal. Cooperative with exam. Medications Current Medications acetaminophen, 650 mg, Oral, q8h aspirin, 81 mg, Oral, q AM atorvastatin, 80 mg, Oral, Nightly clopidogrel, 75 mg, Oral, Daily donepezil, 5 mg, Oral, Nightly enoxaparin, 40 mg, SubCUTAneous, Daily ergocalciferol, 1.25 mg, Oral, Weekly fluticasone, 2 puff, Inhalation, BID gabapentin, 200 mg, Oral, BID isosorbide mononitrate ER, 60 mg, Oral, q AM levothyroxine, 50 mcg, Oral, q AM losartan, 25 mg, Oral, Daily melatonin, 3 mg, Oral, Nightly metoprolol tartrate, 50 mg, Oral, TID mirtazapine, 7.5 mg, Oral, Nightly pantoprazole, 40 mg, Oral, qAM AC tiotropium, 2 puff, Inhalation, Daily PRN Mediations PRN medications: acetaminophen OR acetaminophen, albuterol, haloperidol, ondansetron ODT ORondansetron, perflutren protein A microsphere (Optison) 3 mL in sodium chloride (PF) 0.9 % 10 mL IVsyringe, polyethylene glycol (PEG) 3350, QUEtiapine IV Drips/Infusions Labs CBC Results from last 7 days Lab Units 01/19/24 1113 WBC AUTO 10*3/uL 5.9 HEMOGLOBIN g/dL 11.3* HEMATOCRIT % 34.9* PLATELETS AUTO 10*3/uL 278 BMP: Results from last 7 days Lab Units 01/19/24 1113 01/17/24 0629 01/16/24 0842 SODIUM mmol/L 136 139 137 POTASSIUM mmol/L 3.6 3.8 3.4* CHLORIDE mmol/L 102 106 103 CO2 mmol/L 27 28 25 BUN mg/dL 9 14 13 CREATININE mg/dL 0.79 0.90 0.89 GLUCOSE mg/dL 109* 88 134* CALCIUM mg/dL 8.6 8.7 8.7 ABG: LIVER PROFILE Results from last 7 days Lab Units 01/16/24 0842 ALK PHOS U/L 117 BILIRUBIN TOTAL mg/dL 0.7 PROTEIN TOTAL g/dL 6.5 ALT U/L 16 AST U/L 23 INR PTT No results found for: PTT Radiology CT chest/01/16/2024 Reviewed interpreted by me IMPRESSION: 1. Spiculated 2.5 x 1.8 cm nodule at the left lung apex. Further evaluation with PET/CT or tissue sampling is recommended. 2. Additional 0.5 cm and 0.4 cm nodules within the left lower lobe 3. Mild emphysema and fibrotic changes. 4. Moderate hiatal hernia. CRITICAL TEST COMMUNICATION: Dr. Wasserman was notified via [employer] Secure Chat today at 10:[address] chest was reviewed and interpreted by me as noted above in history of present illness Active Hospital Problem List 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 COPD (chronic obstructive pulmonary disease) (HCC) Lumbar degenerative disc disease Alzheimer's disease, unspecified (CODE) (HCC) Chronic systolic (congestive) heart failure (HCC) Irritable bowel syndrome Psoriasis Osteoporosis with pathological fracture Thoracic compression fracture (HCC) Anxiety GERD (gastroesophageal reflux disease) OAB (overactive bladder) Collagenous colitis Neuropathy Uzair ulcer Renal insufficiency LV dysfunction Hypercholesterolemia Hypothyroid Syncope and collapse Assessment and Plan -Spiculated 2.5 x 1.8 cm left upper lobe nodule new in comparison to the CAT scan in 2018 suspicious for neoplasm -Additional 2 subcentimeter nodule in left lower lobes -History of tobacco abuse quit 1989 -Underlying emphysematous lung disease -History of underlying Alzheimer disease Above CT finding were discussed with the patient as well as the patient by the bedside Concern for neoplastic disease was explained to the patient and the Need for further evaluation with PET CT chest and/or biopsy as discussed However when has been asked her the patient if she wants to do anything about that she declined to have any further workup at this time Patient does not have any respiratory distress or hemoptysis or chest pain currently appears to be asymptomatic from the left upper lobe lung nodule this was explained to the also Advised the patient to follow-up in lung nodule clinic for follow-up however they are not really sure at this time whether he wants to follow-up anymore for this lung nodule Advised them that they can always cancel the appointment he did not want to follow-up Patient's pulmonary status appears to be stable at this time No PFT available currently on [facility] Will resume Spiriva / Flovent and albuterol as shown in the patient's home medication Patient already quit smoking in 1989 I discussed with the patient again today about the abnormal CT chest finding of the new left upper lobe lung nodule which is suspicious for neoplasm Patient is very firm of note pursuing it any further She does not want any further evaluation or workup or treatment for this Patient does not have any respiratory distress denies shortness of breath chest pain or cough At this point we will sign oFF please call us if needed Advance Directive: Full Code Case discussed with nurse and patient . Questions and concerns addressed. Portions of the information within this encounter were entered using an electronic dictation system. Best attempts were made to edit/proofread the information prior to note completion. Despite the review of information, some errors may remain. If there are questions related to the information contained within the note please contact the signing provider directly. * Louann Saleem APRN - SAND OPERATOR - 01/20/2024 9:55 AM EST Images from the original note were not included. Hospitalist Progress Note 01/20/2024 Subjective: Admit Date: 01/16/2024 PCP: Wayne Conde DO Room#: [id number] A Brief Hospital course: 83-year-old female who presents with syncope and a fall. Patient has known history of dementia, andat baseline she is confused and oriented to self. She also presented with nausea. COVID flu and RSVwere negative. No evidence of UTI or other infection. Interval History: No overnight issues. She is pleasant and cooperative this morning. She has no complaints, wants to go home. She states she misses her . Case and plan discussed with patient and bedside nurse. All questions answered. Adult diet Easy to Chew 24HR INTAKE/OUTPUT: Intake/Output Summary (Last 24 hours) at 01/20/2024 0955 Last data filed at 01/20/2024 0949 Gross per 24 hour Intake 240 ml Output -- Net 240 ml Past Medical History: Past Medical History: Diagnosis Date Alzheimer's disease, unspecified (CODE) ([facility]) 01/2021 Anxiety CAD (coronary artery disease) 06/2016 Dr. Martinez- AL-hypokinetic RV- RCA ballon angioplasty- EF 48% 08/10- Dr Gianna Garrett ulcer 2011 Carotid artery disease without cerebral infarction ([facility]) 09/2015 angiogram with <70 % stenosis Left ICA- defers repeat studies Collagenous colitis [address] Teague COPD (chronic obstructive pulmonary disease) ([facility]) 04/2017 ex smoker since 1994--CT also 12/11 Essential hypertension 09/26/2021 GERD (gastroesophageal reflux disease) 2010 Ahmed-EGD 10/07 and 11/08 H/O colonoscopy 10/2018 Ahmed- divert ds- no changes, ? repeat nec H/O: UGI bleed 10/2016 severe esophagitis History of DVT of lower extremity 10/2016 IVC filter History of hypertension 1999 off rx since 04/09 History of myocardial infarction 06/2016 LVEF 48 % History of rhabdomyolysis 07/2017 UGI bleed and Hypotension with CHF Hypercholesterolemia IBS (irritable bowel syndrome) with diarrhea LV dysfunction 07/2017 EF 48 % Neuropathy 09/2014 idiopathic per [facility]G lower ext OAB (overactive bladder) Osteoporosis with pathological fracture 2011 per [facility]-2013 MRI thoracic spine DDD -prolia injections -- L1 fx 2016 Other specified glaucoma Psoriasis Thoracic compression fracture ([facility]) 1959 horse riding accident- DDD LABS: CBC: Recent Labs 01/19/24 1113 WBC 5.9 RBC 4.10 HGB 11.3* HCT 34.9* MCV 85.1 RDW 14.4 PLT 278 BMP: Recent Labs 01/19/24 1113 NA 136 K 3.6 CL 102 CO2 27 BUN 9 CREATININE 0.79 GLUCOSE 109* CALCIUM 8.6 ANIONGAP 7 LIVER PROFILE:No results for input(s): AST, ALT, BILITOT, ALKPHOS, PROT in the last 72 hours. No lab exists for component: LABALBU PT/INR: No results for input(s): PROTIME, INR in the last 72 hours. CARDIAC ENZYMES: No results for input(s): TROPONINI in the last 72 hours. Procalcitonin: No results found for: PROCAL COVID-19 PCR: No results for input(s): COVID19 in the last 72 hours. Objective: Vitals: BP 123/73 (BP Location: Right arm, Patient Position: Lying) Pulse 72 Temp 36.6 C (97.8 F) (Temporal) Resp 18 Ht 4' 11 (1.499 m) Wt 135 lb (61.2 kg) SpO2 92% BMI 27.27 kg/m Pulse Ox: SpO2 Av % Min: 92 % Max: 94 % Supplemental O2: Physical Exam Vitals and nursing note reviewed. Constitutional: Appearance: Normal appearance. HENT: Head: Normocephalic and atraumatic. Nose: Nose normal. Mouth/Throat: Mouth: Mucous membranes are dry. Eyes: Pupils: Pupils are equal, round, and reactive to light. Cardiovascular: Rate and Rhythm: Normal rate and regular rhythm. Pulmonary: Effort: Pulmonary effort is normal. Breath sounds: Normal breath sounds. Abdominal: General: Bowel sounds are normal. Palpations: Abdomen is soft. Musculoskeletal: Cervical back: Normal range of motion and neck supple. Skin: General: Skin is warm and dry. Findings: Bruising present. Comments: Poor turgor Neurological: General: No focal deficit present. Mental Status: She is alert. Mental status is at baseline. Psychiatric: Mood and Affect: Mood normal. Behavior: Behavior normal. Medications: acetaminophen, 650 mg, Oral, q8h aspirin, 81 mg, Oral, q AM atorvastatin, 80 mg, Oral, Nightly clopidogrel, 75 mg, Oral, Daily donepezil, 5 mg, Oral, Nightly enoxaparin, 40 mg, SubCUTAneous, Daily ergocalciferol, 1.25 mg, Oral, Weekly fluticasone, 2 puff, Inhalation, BID gabapentin, 200 mg, Oral, BID isosorbide mononitrate ER, 60 mg, Oral, q AM levothyroxine, 50 mcg, Oral, q AM losartan, 25 mg, Oral, Daily melatonin, 3 mg, Oral, Nightly metoprolol tartrate, 50 mg, Oral, TID mirtazapine, 7.5 mg, Oral, Nightly pantoprazole, 40 mg, Oral, qAM AC tiotropium, 2 puff, Inhalation, Daily Assessment Data: (CAT1) Reviewed 3 or more notes from different specialty or health system (each=1). (CAT1) Reviewed 3 or more labs/studies ordered by another provider not previously counted (each=1, panels count as 1). (CAT1) Ordered 2 new labs and/or studies (each=1, panels count as 1). (LOW: 2x CAT1 or independent historian MOD: 3x CAT1 or 1x CAT3 EXTENSIVE: 3x CAT1 and 1x CAT3) Acute, acute on chronic, unstable/uncontrolled chronic problems/diagnoses: Syncope and fall: Telemetry Dc'd due to pt not complying. PT OT. NL EF, unlikely due to arrhythmia.EKG Qtc 433ms HFpEF: 61%, no WMA, improved from previous study, no active HF Alzheimer's dementia/-Delirium: Geriatrics consulted, continue donepezil and Remeron. Episode increased confusion, elevated BP, unable to redirect, 01/17, Seroquel given. Ordered prn Haldol, will await Geriatric input. Concern for pain: program Tylenol Q 8 Hypokalemia: improved with K supplement Urinary urgency: will check Bladder scan PVRs, UA negative 01/16 Spiculated lung nodule: Consult pulmonology, pulm following, patient and do not want further investigation Proximal colitis, Nausea resolved, KUB: mild illus. Advance diet to soft, IV fluids dc'd, prn antiemetics. Consider GI consult. I&O, daily wts, health analytics consultant consult, tolerating diet Sliding hiatal hernia: May influencing nausea Anemia:Chronic disease IV fluids stopped. Stable chronic problems affecting care, new non-acute diagnoses: COPD: inhaler CAD multivessel 2016: Continue DAPT Hypothyroidism: TSH NL Hypertension: increased Metoprolol tartrate 50 mg tid, added Cozaar 25 mg HLD: Will increase Lipitor to 80 mg given multivessel CAD Visual impairment Plan As a result of the above findings & factors, the following mgmt was pursued: - - am labs, replace lytes prn - PT/OT/CM/SW - delirium precautions: increase activity and limit nighttime disturbances - DVT prophylaxis: enoxaparin and encourage ambulation Complexity: Acute illness with systemic symptoms (MOD). Risk: Prescription drug/IVF/colloid was initiated, discontinued, adjusted; or reviewed with decision to maintain current orders (MOD). Low risk diagnostic testing or treatment (LOW). Advance Directive: Full Code Anticipated Discharge - Date - 01/21 - Location - Home with Home Health Care vs skilled facility - Pending the following - clinical improvement Total time spent (which include face to face and non face to face encounters) : minutes Toxic drug monitoring/narrow therapeutic index drug monitoring : # Drug name : # Route administered : # Method of monitoring : Extended Emergency Contact Information Primary Emergency Contact: Inez Bowman Relation: Sibling Secondary Emergency Contact: Sameer Herron Relation: Spouse ANGELLA MELO CNP Division of Hospitalist Medicine [facility] * Kannan Beavers RN - 01/19/2024 3:00 PM EST Video monitoring removed from patients room. Bed alarm is on. * Letha Salinas PT - 01/19/2024 1:35 PM EST Images from the original note were not included. PHYSICAL THERAPY [facility] Name/MRN: Farzana Herron ([id number]) Date: 01/19/2024 PT orders received. Chart reviewed. Per RN okay for therapy. PT presented to room and introduced self/role. Pt adamantly declining evaluation despite multiple mobility options. Will re-attempt as pt appropriate and schedule permits. Letha Salinas PT * ANGELLA Ramirez CNP - 01/19/2024 8:03 AM EST Images from the original note were not included. Hospitalist Progress Note 01/19/2024 Subjective: Admit Date: 01/16/2024 PCP: Wayne Conde DO Room#: [id number] A Brief Hospital course: 83-year-old female who presents with syncope and a fall. Patient has known history of dementia, andat baseline she is confused and oriented to self. She also presented with nausea. COVID flu and RSVwere negative. No evidence of UTI or other infection. Interval History: Per nursing: pt having urgency, on BSC every couple hours. No overnight issues of delirium. Denies dysuria. Pt became annoyed with questions and stopped answering. She has no abdominal pain, unable to tell me last BM, nothing documented. She is able to get OOB independently to BSC without help. Case and plan discussed with patient and bedside nurse. All questions answered. Adult diet Full liquid 24HR INTAKE/OUTPUT: No intake or output data in the 24 hours ending 01/19/24 0804 Past Medical History: Past Medical History: Diagnosis Date Alzheimer's disease, unspecified (CODE) ([facility]) 01/2021 Anxiety CAD (coronary artery disease) 06/2016 Dr. Martinez- AL-hypokinetic RV- RCA ballon angioplasty- EF 48% 08/10- Dr Gianna Garrett ulcer 2011 Carotid artery disease without cerebral infarction ([facility]) 09/2015 angiogram with <70 % stenosis Left ICA- defers repeat studies Collagenous colitis [address] Teague COPD (chronic obstructive pulmonary disease) ([facility]) 04/2017 ex smoker since 1994--CT also 12/11 Essential hypertension 09/26/2021 GERD (gastroesophageal reflux disease) 2010 [facility]-EGD 10/07 and 11/08 H/O colonoscopy 10/2018 [facility]- divert ds- no changes, ? repeat nec H/O: UGI bleed 10/2016 severe esophagitis History of DVT of lower extremity 10/2016 IVC filter History of hypertension 1999 off rx since 04/09 History of myocardial infarction 06/2016 LVEF 48 % History of rhabdomyolysis 07/2017 UGI bleed and Hypotension with CHF Hypercholesterolemia IBS (irritable bowel syndrome) with diarrhea LV dysfunction 07/2017 EF 48 % Neuropathy 09/2014 idiopathic per [facility] lower ext OAB (overactive bladder) Osteoporosis with pathological fracture 2011 per [facility]-2013 MRI thoracic spine DDD -prolia injections -- L1 fx 2017 Other specified glaucoma Psoriasis Thoracic compression fracture (HCC) 1960 horse riding accident- DDD LABS: CBC: Recent Labs 01/16/24 0842 01/17/24 0629 WBC 6.4 5.2 RBC 4.45 3.86 HGB 12.3 10.8* HCT 37.9 32.5* MCV 85.1 84.0 RDW 14.6* 14.7* PLT 258 231 BMP: Recent Labs 01/16/24 0842 01/17/24 0629 NA 137 139 K 3.4* 3.8 CL 103 106 CO2 25 28 BUN 13 14 CREATININE 0.89 0.90 GLUCOSE 134* 88 CALCIUM 8.7 8.7 ANIONGAP 9 6 LIVER PROFILE: Recent Labs 01/16/24 0842 AST 23 ALT 16 BILITOT 0.7 ALKPHOS 117 PROT 6.5 PT/INR: No results for input(s): PROTIME, INR in the last 72 hours. CARDIAC ENZYMES: Recent Labs 01/16/24 0842 01/16/24 1148 01/16/24 1505 TROPONINI <0.012 <0.012 <0.012 Procalcitonin: No results found for: PROCAL COVID-19 PCR: No results for input(s): COVID19 in the last 72 hours. Objective: Vitals: BP (!) 178/106 (BP Location: Right arm, Patient Position: Lying) Pulse 96 Temp 36.3 C (97.4 F) (Temporal) Resp 18 Ht 4' 11 (1.499 m) Wt 135 lb (61.2 kg) SpO2 96% BMI 27.27 kg/m Pulse Ox: SpO2 Av.3 % Min: 95 % Max: 96 % Supplemental O2: Physical Exam Cardiovascular: Rate and Rhythm: Normal rate and regular rhythm. Heart sounds: Normal heart sounds. Pulmonary: Breath sounds: Normal breath sounds. Abdominal: General: Bowel sounds are normal. Palpations: Abdomen is soft. Neurological: General: No focal deficit present. Mental Status: She is alert. Mental status is at baseline. Psychiatric: Mood and Affect: Mood normal. Behavior: Behavior normal. Medications: aspirin, 81 mg, Oral, q AM atorvastatin, 80 mg, Oral, Nightly clopidogrel, 75 mg, Oral, Daily donepezil, 5 mg, Oral, Nightly enoxaparin, 40 mg, SubCUTAneous, Daily ergocalciferol, 1.25 mg, Oral, Weekly fluticasone, 2 puff, Inhalation, BID isosorbide mononitrate ER, 60 mg, Oral, q AM levothyroxine, 50 mcg, Oral, q AM metoprolol tartrate, 50 mg, Oral, TID mirtazapine, 7.5 mg, Oral, Nightly pantoprazole, 40 mg, Oral, qAM AC tiotropium, 2 puff, Inhalation, Daily Assessment Data: (CAT1) Reviewed 2 labs/studies ordered by another provider not previously counted (each=1, panels count as 1). (LOW: 2x CAT1 or independent historian MOD: 3x CAT1 or 1x CAT3 EXTENSIVE: 3x CAT1 and 1x CAT3) CT of the abdomen pelvis with contrast 01/16/2024 IMPRESSION: No acute injury within the abdomen/pelvis. Mild proximal colitis. Colonic and duodenal diverticulosis. Bilateral renal cortical atrophy. Moderate sized sliding hiatal hernia. Report Dictated on Electronically Signed By: Jessie Pinedo MD Electronically Signed Date/Time: 01/16/2024 10:[address] of the chest without contrast: 01/16/2024 IMPRESSION: 1. Spiculated 2.5 x 1.8 cm nodule at the left lung apex. Further evaluation with PET/CT or tissue sampling is recommended. 2. Additional 0.5 cm and 0.4 cm nodules within the left lower lobe 3. Mild emphysema and fibrotic changes. 4. Moderate hiatal hernia CT of the cervical spine without IV contrast 01/16/2024 IMPRESSION: 1. No acute cervical spine fracture. 2. Spiculated nodule at the left lung apex measuring 2.1 cm. Refer to concurrent chest CT for further evaluation. 3. Osteopenia. 4. Multilevel degenerative changes of the cervical spine. CT of the head without contrast 01/16/2024 FINDINGS: Prominence of ventricles and cortical sulci is compatible with cerebral volume loss. No extra axialcollection. No acute intracranial hemorrhage. Scattered foci of hypoattenuation in the cerebral white matter are nonspecific but most compatible with microangiopathy. No CT evidence of acute large territorial infarct. No mass effect, cerebral edema, or midline shift. Atherosclerotic vascular calcifications visualized at the skull base. Imaged portions of the paranasal sinuses and mastoid air cells are well aerated. No depressed calvarial fracture. Bilateral lens replacements. IMPRESSION: No acute intracranial hemorrhage or mass effect. 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 Report Dictated on Electronically Signed By: Leonel Rubio MD Electronically Signed Date/Time: 01/16/2024 10:27 AM EST Chest x-ray 1 view 01/16/2024 IMPRESSION: FINDINGS/IMPRESSION: 1. Lines/Tubes/Devices/Hardware: None. 2. Lungs: Possible nodular airspace opacity at the left lung apex measuring 1.9 cm. Further evaluation with CT of the chest is recommended. No consolidation or pulmonary edema. 3. Pleura: No pneumothorax or large pleural effusions. 4. Heart and mediastinum: Normal cardiomediastinal contours. ECHO: 01/17/24 Interpretation Summary Left Ventricle: Left ventricle size is normal. Moderately increased wall thickness. Normal left ventricular systolic function. EF by 2D Simpsons Biplane is 66%. Normal wall motion. Indeterminate diastolic function. Right Ventricle: Not well visualized. Right ventricle size is normal. Normal systolic function. TAPSE is normal. Aortic Valve: Trileaflet. Mildly calcified cusps. Mild (1+) regurgitation. Left Atrium: Left atrium size is normal. This can be compared to a study dated November 2016 where a wall motion abnormality was noted and the left ventricular ejection fraction was mildly decreased at 48%. On this study, the wall motion is normal and the left ventricular ejection fraction is normal. On the previous study the mild aortic regurgitation was seen as well. There appears to be a pericardial fat pad present, minor finding. KUB: 01/18/24 Examination: Abdomen 1 view Indication: CONSTIPATION Findings: Air-filled mildly distended bowel are present. There is also some bowel gas in the distribution thecolon. IVC filter present. Small cluster of surgical clips in the right upper abdomen are most suggestive of prior cholecystectomy. There are also a few small calcifications in the right upper abdomen. Small osteophytes of the spine are present at multiple levels with mild scoliosis. IMPRESSION: Impression: Suspect mild ileus. Report Dictated on Electronically Signed By: Taylor Reed MD Electronically Signed Date/Time: 01/18/2024 10:39 AM EST Acute, acute on chronic, unstable/uncontrolled chronic problems/diagnoses: Syncope and fall: Telemetry Dc'd due to pt not complying. PT OT. NL EF, unlikely due to arrhythmia.EKG Qtc 433ms HFpEF: 61%, no WMA, improved from previous study, no active HF Alzheimer's dementia/?Delirium: Geriatrics consulted, continue donepezil and Remeron. Episode increased confusion, elevated BP, unable to redirect, 01/17, Seroquel given. Ordered prn Haldol, will await Geriatric input. ?Concern for pain: program Tylenol Q 8 Hypokalemia: improved with K supplement Urinary urgency: will check Bladder scan PVRs, UA negative 01/16 Spiculated lung nodule: Consult pulmonology Proximal colitis, Nausea resolved, KUB: mild illus. Advance diet to soft, IV fluids dc'd, prn antiemetics. Consider GI consult. I&O, daily wts, health analytics consultant consult Sliding hiatal hernia: May influencing nausea Anemia:Chronic disease, ?dilutional. IV fluids stopped. Stable chronic problems affecting care, new non-acute diagnoses: COPD: inhaler CAD multivessel 2016: Continue DAPT Hypothyroidism: TSH NL Hypertension: increased Metoprolol tartrate 50 mg tid, added Cozaar 25 mg HLD: Will increase Lipitor to 80 mg given multivessel CAD Visual impairment Plan As a result of the above findings & factors, the following mgmt was pursued: - - am labs, replace lytes prn - PT/OT/CM/SW - delirium precautions: increase activity and limit nighttime disturbances - DVT prophylaxis: enoxaparin and encourage ambulation Complexity: Acute illness with systemic symptoms (MOD). Risk: Care and management is being impacted by the following SDOH: dementia (MOD). Advance Directive: Full Code Anticipated Discharge - Date - TBD - Location - TBD - Pending the following - Clinical improvement Total time spent (which include face to face and non face to face encounters) : minutes Toxic drug monitoring/narrow therapeutic index drug monitoring : # Drug name : Haldol # Route administered : oral # Method of monitoring : QTc Extended Emergency Contact Information Primary Emergency Contact: Inez Bowman [place] Relation: Sibling Secondary Emergency Contact: Sameer Herron Relation: Spouse ADRIEN CURRY APRN - SAND OPERATOR Division of Hospitalist Medicine Acute care [facility] Comment: Please note this report has been produced using speech recognition software and may contain errors related to that system including errors in grammar, punctuation, and spelling, as well as words and phrases that may be inappropriate. If there is any questions or concerns please feel free to contact the dictating provider for clarification * Dayan Lua - 01/18/2024 9:34 AM EST Nutrition rescreen complete. Pt assigned a level one for nutrition care. * ANGELLA Ramirez CNP - 01/18/2024 9:06 AM EST Images from the original note were not included. Hospitalist Progress Note 01/18/2024 Subjective: Admit Date: 01/16/2024 PCP: Wayne Conde DO Room#: [id number] A Brief Hospital course: 83-year-old female who presents with syncope and a fall. Patient has known history of dementia, andat baseline she is confused and oriented to self. She also presented with nausea. COVID flu and RSVwere negative. No evidence of UTI or other infection. Interval History: Patient seen at bedside currently she denies any pain or discomfort. Per nursing the patient had anincident yesterday that she was confused disoriented unable to be redirected. She also had increased blood pressures. There was no mention of pain or discomfort patient DC her IV and was dripping blood and was found out in the [place] wandering. She was treated with Seroquel last night. Currently the patient is without any complaints. Haldol as needed for 4 doses may have been written in the event she has another incident however we will wait for geriatrics to see the patient for recommendations. Will also obtain EKG for QTc evaluation given she is also on Zofran. We can DC the Haldol or change the Zofran as needed. Case and plan discussed with bedside nurse. All questions answered. Adult diet Full liquid 24HR INTAKE/OUTPUT: No intake or output data in the 24 hours ending 01/18/24 0914 Past Medical History: Past Medical History: Diagnosis Date Alzheimer's disease, unspecified (CODE) ([facility]) 01/2021 Anxiety CAD (coronary artery disease) 06/2016 Dr. Martinez- [place]-hypokinetic RV- RCA ballon angioplasty- EF 48% 08/10- Dr Gianna Garrett ulcer 2011 Carotid artery disease without cerebral infarction ([facility]) 09/2015 angiogram with <70 % stenosis Left ICA- defers repeat studies Collagenous colitis [address] Teague COPD (chronic obstructive pulmonary disease) ([facility]) 04/2017 ex smoker since 1994--CT also 12/11 Essential hypertension 09/26/2021 GERD (gastroesophageal reflux disease) 2010 [facility]-EGD 10/07 and 11/08 H/O colonoscopy 10/2018 [facility]- divert ds- no changes, ? repeat nec H/O: UGI bleed 10/2016 severe esophagitis History of DVT of lower extremity 10/2016 IVC filter History of hypertension 1999 off rx since 04/09 History of myocardial infarction 06/2016 LVEF 48 % History of rhabdomyolysis 07/2017 UGI bleed and Hypotension with CHF Hypercholesterolemia IBS (irritable bowel syndrome) with diarrhea LV dysfunction 07/2017 EF 48 % Neuropathy 09/2014 idiopathic per [facility] lower ext OAB (overactive bladder) Osteoporosis with pathological fracture 2011 per [facility]-2013 MRI thoracic spine DDD -prolia injections -- L1 fx 2016 Other specified glaucoma Psoriasis Thoracic compression fracture ([facility]) 1960 horse riding accident- DDD LABS: CBC: Recent Labs 01/16/24 0842 01/17/24 0629 WBC 6.4 5.2 RBC 4.45 3.86 HGB 12.3 10.8* HCT 37.9 32.5* MCV 85.1 84.0 RDW 14.6* 14.7* PLT 258 231 BMP: Recent Labs 01/16/24 0842 01/17/24 0629 NA 137 139 K 3.4* 3.8 CL 103 106 CO2 25 28 BUN 13 14 CREATININE 0.89 0.90 GLUCOSE 134* 88 CALCIUM 8.7 8.7 ANIONGAP 9 6 LIVER PROFILE: Recent Labs 01/16/24 0842 AST 23 ALT 16 BILITOT 0.7 ALKPHOS 117 PROT 6.5 PT/INR: No results for input(s): PROTIME, INR in the last 72 hours. CARDIAC ENZYMES: Recent Labs 01/16/24 0842 01/16/24 1148 01/16/24 1505 TROPONINI <0.012 <0.012 <0.012 Procalcitonin: No results found for: PROCAL COVID-19 PCR: No results for input(s): COVID19 in the last 72 hours. Objective: Vitals: BP 146/82 Pulse 98 Temp 36.2 C (97.2 F) (Temporal) Resp 17 Ht 4' 11 (1.499 m) Wt135 lb (61.2 kg) SpO2 94% BMI 27.27 kg/m Pulse Ox: SpO2 Av.7 % Min: 94 % Max: 96 % Supplemental O2: Physical Exam Constitutional: General: She is not in acute distress. Appearance: She is obese. She is not toxic-appearing. HENT: Mouth/Throat: Mouth: Mucous membranes are dry. Cardiovascular: Rate and Rhythm: Normal rate and regular rhythm. Heart sounds: Normal heart sounds. Pulmonary: Breath sounds: Normal breath sounds. Abdominal: General: Bowel sounds are normal. Palpations: Abdomen is soft. Musculoskeletal: General: Normal range of motion. Skin: General: Skin is warm and dry. Neurological: General: No focal deficit present. Mental Status: She is alert. Comments: Oriented to self and place only Psychiatric: Attention and Perception: She is inattentive. Mood and Affect: Affect is flat. Speech: Speech normal. Behavior: Behavior is cooperative. Cognition and Memory: Cognition is impaired. Memory is impaired. Judgment: Judgment is inappropriate. Medications: aspirin, 81 mg, Oral, q AM atorvastatin, 10 mg, Oral, Nightly clopidogrel, 75 mg, Oral, Daily donepezil, 5 mg, Oral, Nightly enoxaparin, 40 mg, SubCUTAneous, Daily ergocalciferol, 1.25 mg, Oral, Weekly fluticasone, 2 puff, Inhalation, BID isosorbide mononitrate ER, 60 mg, Oral, q AM levothyroxine, 50 mcg, Oral, q AM metoprolol tartrate, 25 mg, Oral, TID mirtazapine, 7.5 mg, Oral, Nightly pantoprazole, 40 mg, Oral, qAM AC tiotropium, 2 puff, Inhalation, Daily Assessment Data: (CAT1) Reviewed 2 notes from different specialty or health system (each=1). (CAT1) Reviewed 2 labs/studies ordered by another provider not previously counted (each=1, panels count as 1). (LOW: 2x CAT1 or independent historian MOD: 3x CAT1 or 1x CAT3 EXTENSIVE: 3x CAT1 and 1x CAT3) CT of the abdomen pelvis with contrast 01/16/2024 IMPRESSION: No acute injury within the abdomen/pelvis. Mild proximal colitis. Colonic and duodenal diverticulosis. Bilateral renal cortical atrophy. Moderate sized sliding hiatal hernia. Report Dictated on Electronically Signed By: Jessie Pinedo MD Electronically Signed Date/Time: 01/16/2024 10:[address] of the chest without contrast: 01/16/2024 IMPRESSION: 1. Spiculated 2.5 x 1.8 cm nodule at the left lung apex. Further evaluation with PET/CT or tissue sampling is recommended. 2. Additional 0.5 cm and 0.4 cm nodules within the left lower lobe 3. Mild emphysema and fibrotic changes. 4. Moderate hiatal hernia CT of the cervical spine without IV contrast 01/16/2024 IMPRESSION: 1. No acute cervical spine fracture. 2. Spiculated nodule at the left lung apex measuring 2.1 cm. Refer to concurrent chest CT for further evaluation. 3. Osteopenia. 4. Multilevel degenerative changes of the cervical spine. CT of the head without contrast 01/16/2024 FINDINGS: Prominence of ventricles and cortical sulci is compatible with cerebral volume loss. No extra axialcollection. No acute intracranial hemorrhage. Scattered foci of hypoattenuation in the cerebral white matter are nonspecific but most compatible with microangiopathy. No CT evidence of acute large territorial infarct. No mass effect, cerebral edema, or midline shift. Atherosclerotic vascular calcifications visualized at the skull base. Imaged portions of the paranasal sinuses and mastoid air cells are well aerated. No depressed calvarial fracture. Bilateral lens replacements. IMPRESSION: No acute intracranial hemorrhage or mass effect. 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 Report Dictated on Electronically Signed By: Leonel Rubio MD Electronically Signed Date/Time: 01/16/2024 10:27 AM EST Chest x-ray 1 view 01/16/2024 IMPRESSION: FINDINGS/IMPRESSION: 1. Lines/Tubes/Devices/Hardware: None. 2. Lungs: Possible nodular airspace opacity at the left lung apex measuring 1.9 cm. Further evaluation with CT of the chest is recommended. No consolidation or pulmonary edema. 3. Pleura: No pneumothorax or large pleural effusions. 4. Heart and mediastinum: Normal cardiomediastinal contours. ECHO: 01/17/24 Interpretation Summary Left Ventricle: Left ventricle size is normal. Moderately increased wall thickness. Normal left ventricular systolic function. EF by 2D Simpsons Biplane is 66%. Normal wall motion. Indeterminate diastolic function. Right Ventricle: Not well visualized. Right ventricle size is normal. Normal systolic function. TAPSE is normal. Aortic Valve: Trileaflet. Mildly calcified cusps. Mild (1+) regurgitation. Left Atrium: Left atrium size is normal. This can be compared to a study dated November 2016 where a wall motion abnormality was noted and the left ventricular ejection fraction was mildly decreased at 48%. On this study, the wall motion is normal and the left ventricular ejection fraction is normal. On the previous study the mild aortic regurgitation was seen as well. There appears to be a pericardial fat pad present, minor finding. Acute, acute on chronic, unstable/uncontrolled chronic problems/diagnoses: Syncope and fall: Telemetry Dc'd due to pt not complying. PT OT. NL EF, unlikely due to arrhythmia.Obtain EKG ck Qtc HFpEF: 61%, no WMA, improved from previous study, no active HF Alzheimer's dementia/?Delirium: Geriatrics consulted, continue donepezil and Remeron. Episode increased confusion, elevated BP, unable to redirect last night. Seroquel given. Ordered prn pushpa [place] Geriatric input Hypokalemia: improved with K supplement Spiculated lung nodule: Consult pulmonology Proximal colitis with nausea: Will place on full liquids, antiemetics will start D5 1/2 NS at 75ml/hr. consider GI consult. KUB to evaluate for Constipation Sliding hiatal hernia: May influencing nausea Stable chronic problems affecting care, new non-acute diagnoses: COPD: inhaler CAD multivessel 2016 Hypothyroidism: TSH Pending Hypertension: Changed BB to Metoprolol tartrate 25 mg tid better coverage HLD: Will increase Lipitor to 80 mg given multivessel CAD Visual impairment Plan As a result of the above findings & factors, the following mgmt was pursued: - - am labs, replace lytes prn - PT/OT/CM/SW - delirium precautions: increase activity and limit nighttime disturbances - DVT prophylaxis: enoxaparin and encourage ambulation Complexity: Multiple stable chronic illnesses (MOD). Risk: Low risk diagnostic testing or treatment (LOW). Advance Directive: Full Code Anticipated Discharge - Date - 01/19/24 - Location - possibly Skilled Facility - Pending the following - clinical evaluation Total time spent (which include face to face and non face to face encounters) : minutes Toxic drug monitoring/narrow therapeutic index drug monitoring : # Drug name : Haldol # Route administered : PO # Method of monitoring : QTC monitoring Extended Emergency Contact Information Primary Emergency Contact: Inez Bowman Relation: Sibling Secondary Emergency Contact: Sameer Herron Relation: Spouse ANGELLA RAMIREZ CNP Division of Hospitalist Medicine [facility] Comment: Please note this report has been produced using speech recognition software and may contain errors related to that system including errors in grammar, punctuation, and spelling, as well as words and phrases that may be inappropriate. If there is any questions or concerns please feel free to contact the dictating provider for clarification * Geo Vee MD - 01/17/2024 8:42 PM EST [facility] Geriatric Medicine Inpatient Consult Service Admission Date: 01/16/2024 Consult Date: 01/16/24 Consult reason: falls and dementia Geriatric consult acknowledged. Please contact covering physician via Secure Chat with urgent questions or concerns. Consult will be completed on next business day. Geo Vee MD 01/17/2024 8:42 PM * ANGELLA Ramirez CNP - 01/17/2024 8:41 AM EST Images from the original note were not included. Hospitalist Progress Note 01/17/2024 Subjective: Admit Date: 01/16/2024 PCP: Wayne Conde DO Room#: [id number] A Brief Hospital course: 83-year-old female who presents with syncope and a fall. Patient has known history of dementia, andat baseline she is confused and oriented to self. She also presented with nausea. COVID flu and RSVwere negative. No evidence of UTI or other infection. Interval History: Patient seen at bedside, complaining of nausea. Patient has not vomited. Patient states she is not able to eat. Will place her on full liquids and initiate IV fluids as well as give her antiemetics. She denies any abdominal pain. No evidence of diarrhea. No overnight issues. Case and plan discussedwith patient, and bedside nurse. All questions answered. Adult diet Regular 24HR INTAKE/OUTPUT: Intake/Output Summary (Last 24 hours) at 01/17/2024 0842 Last data filed at 01/17/2024 0645 Gross per 24 hour Intake -- Output 1380 ml Net -1380 ml Past Medical History: Past Medical History: Diagnosis Date Alzheimer's disease, unspecified (CODE) ([facility]) 01/2021 Anxiety CAD (coronary artery disease) 06/2016 Dr. Martinez- [place]-hypokinetic RV- RCA ballon angioplasty- EF 48% 08/10- Dr Gianna Garrett ulcer 2011 Carotid artery disease without cerebral infarction ([facility]) 09/2015 angiogram with <70 % stenosis Left ICA- defers repeat studies Collagenous colitis [address] Teague COPD (chronic obstructive pulmonary disease) ([facility]) 04/2017 ex smoker since 1994--CT also 12/11 Essential hypertension 09/26/2021 GERD (gastroesophageal reflux disease) 2010 [facility]-EGD 10/07 and 11/08 H/O colonoscopy 10/2018 [facility]- divert ds- no changes, ? repeat nec H/O: UGI bleed 10/2016 severe esophagitis History of DVT of lower extremity 10/2016 IVC filter History of hypertension 1999 off rx since 04/09 History of myocardial infarction 06/2016 LVEF 48 % History of rhabdomyolysis 07/2017 UGI bleed and Hypotension with CHF Hypercholesterolemia IBS (irritable bowel syndrome) with diarrhea LV dysfunction 07/2017 EF 48 % Neuropathy 09/2014 idiopathic per [facility] lower ext OAB (overactive bladder) Osteoporosis with pathological fracture 2011 per [facility]-2013 MRI thoracic spine DDD -prolia injections -- L1 fx 2017 Other specified glaucoma Psoriasis Thoracic compression fracture (HCC) 1960 horse riding accident- DDD LABS: CBC: Recent Labs 01/16/24 0842 01/17/24 0629 WBC 6.4 5.2 RBC 4.45 3.86 HGB 12.3 10.8* HCT 37.9 32.5* MCV 85.1 84.0 RDW 14.6* 14.7* PLT 258 231 BMP: Recent Labs 01/16/24 0842 01/17/24 0629 NA 137 139 K 3.4* 3.8 CL 103 106 CO2 25 28 BUN 13 14 CREATININE 0.89 0.90 GLUCOSE 134* 88 CALCIUM 8.7 8.7 ANIONGAP 9 6 LIVER PROFILE: Recent Labs 01/16/24 0842 AST 23 ALT 16 BILITOT 0.7 ALKPHOS 117 PROT 6.5 PT/INR: No results for input(s): PROTIME, INR in the last 72 hours. CARDIAC ENZYMES: Recent Labs 01/16/24 0842 01/16/24 1148 01/16/24 1505 TROPONINI <0.012 <0.012 <0.012 Procalcitonin: No results found for: PROCAL COVID-19 PCR: No results for input(s): COVID19 in the last 72 hours. Objective: Vitals: BP 145/90 Pulse 90 Temp 36.4 C (97.6 F) (Temporal) Resp 16 Wt 135 lb 8 oz (61.5 kg) SpO2 97% BMI 27.37 kg/m Pulse Ox: SpO2 Av.5 % Min: 93 % Max: 97 % Supplemental O2: Physical Exam Constitutional: Appearance: She is obese. She is ill-appearing. She is not toxic-appearing. Cardiovascular: Rate and Rhythm: Normal rate and regular rhythm. Heart sounds: Normal heart sounds. Pulmonary: Breath sounds: Normal breath sounds. Abdominal: General: Bowel sounds are normal. Palpations: Abdomen is soft. Musculoskeletal: General: No swelling. Normal range of motion. Skin: General: Skin is warm and dry. Coloration: Skin is pale. Neurological: General: No focal deficit present. Mental Status: She is alert. Comments: Oriented to self and Psychiatric: Attention and Perception: She is inattentive. Mood and Affect: Affect is flat. Behavior: Behavior is cooperative. Cognition and Memory: Cognition is impaired. Memory is impaired. Medications: aspirin, 81 mg, Oral, q AM atorvastatin, 10 mg, Oral, Nightly clopidogrel, 75 mg, Oral, Daily donepezil, 5 mg, Oral, Nightly enoxaparin, 40 mg, SubCUTAneous, Daily ergocalciferol, 1.25 mg, Oral, Weekly fluticasone, 2 puff, Inhalation, BID isosorbide mononitrate ER, 60 mg, Oral, q AM levothyroxine, 50 mcg, Oral, q AM metoprolol succinate XL, 50 mg, Oral, Daily mirtazapine, 7.5 mg, Oral, Nightly pantoprazole, 40 mg, Oral, qAM AC tiotropium, 2 puff, Inhalation, Daily Assessment Data: (CAT1) Reviewed 2 notes from different specialty or health system (each=1). (CAT1) Reviewed 2 labs/studies ordered by another provider not previously counted (each=1, panels count as 1). (LOW: 2x CAT1 or independent historian MOD: 3x CAT1 or 1x CAT3 EXTENSIVE: 3x CAT1 and 1x CAT3) CT of the abdomen pelvis with contrast 01/16/2024 IMPRESSION: No acute injury within the abdomen/pelvis. Mild proximal colitis. Colonic and duodenal diverticulosis. Bilateral renal cortical atrophy. Moderate sized sliding hiatal hernia. Report Dictated on Electronically Signed By: Jessie Pinedo MD Electronically Signed Date/Time: 01/16/2024 10:[address] of the chest without contrast: 01/16/2024 IMPRESSION: 1. Spiculated 2.5 x 1.8 cm nodule at the left lung apex. Further evaluation with PET/CT or tissue sampling is recommended. 2. Additional 0.5 cm and 0.4 cm nodules within the left lower lobe 3. Mild emphysema and fibrotic changes. 4. Moderate hiatal hernia CT of the cervical spine without IV contrast 01/16/2024 IMPRESSION: 1. No acute cervical spine fracture. 2. Spiculated nodule at the left lung apex measuring 2.1 cm. Refer to concurrent chest CT for further evaluation. 3. Osteopenia. 4. Multilevel degenerative changes of the cervical spine. CT of the head without contrast 01/16/2024 FINDINGS: Prominence of ventricles and cortical sulci is compatible with cerebral volume loss. No extra axialcollection. No acute intracranial hemorrhage. Scattered foci of hypoattenuation in the cerebral white matter are nonspecific but most compatible with microangiopathy. No CT evidence of acute large territorial infarct. No mass effect, cerebral edema, or midline shift. Atherosclerotic vascular calcifications visualized at the skull base. Imaged portions of the paranasal sinuses and mastoid air cells are well aerated. No depressed calvarial fracture. Bilateral lens replacements. IMPRESSION: No acute intracranial hemorrhage or mass effect. 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 Report Dictated on Electronically Signed By: Leonel Rubio MD Electronically Signed Date/Time: 01/16/2024 10:27 AM EST Chest x-ray 1 view 01/16/2024 IMPRESSION: FINDINGS/IMPRESSION: 1. Lines/Tubes/Devices/Hardware: None. 2. Lungs: Possible nodular airspace opacity at the left lung apex measuring 1.9 cm. Further evaluation with CT of the chest is recommended. No consolidation or pulmonary edema. 3. Pleura: No pneumothorax or large pleural effusions. 4. Heart and mediastinum: Normal cardiomediastinal contours. Acute, acute on chronic, unstable/uncontrolled chronic problems/diagnoses: Syncope and fall: Telemetry, sinus rhythm with PACs. PT OT, echo pending History of chronic systolic heart failure: Repeat echo pending, previous EF 50 to 51% 2016 Alzheimer's dementia: Geriatrics consulted, continue donepezil and Remeron Hypokalemia: Supplemental potassium Spiculated lung nodule: Consult pulmonology Proximal colitis with nausea: Will place on full liquids, antiemetics will start D5 1/2 NS at 75ml/hr. consider GI consult Sliding hiatal hernia: May be influencing nausea Stable chronic problems affecting care, new non-acute diagnoses: COPD CAD multivessel 2016 Hypothyroidism Hypertension HLD Visual impairment Plan As a result of the above findings & factors, the following mgmt was pursued: - - am labs, replace lytes prn - PT/OT/CM/SW - delirium precautions: increase activity and limit nighttime disturbances - DVT prophylaxis: enoxaparin and encourage ambulation Complexity: Acute, uncomplicated illness or injury (LOW). Risk: Care and management is being impacted by the following SDOH: Dementia (MOD). Advance Directive: Full Code Anticipated Discharge - Date -01/19/2024 - Location - Home - Pending the following -clinical improvement Total time spent (which include face to face and non face to face encounters) : minutes Toxic drug monitoring/narrow therapeutic index drug monitoring : # Drug name : # Route administered : # Method of monitoring : Extended Emergency Contact Information Primary Emergency Contact: Inez Bowman Relation: Sibling Secondary Emergency Contact: Sameer Herron Relation: Spouse ANGELLA RAMIREZ CNP Division of Hospitalist Medicine [facility] Comment: Please note this report has been produced using speech recognition software and may contain errors related to that system including errors in grammar, punctuation, and spelling, as well as words and phrases that may be inappropriate. If there is any questions or concerns please feel free to contact the dictating provider for clarification * Terrie Jimenez RN - 01/16/2024 6:58 PM EST Pt IV infiltrated. Attempted twice to obtain new IV. documented in this [facility]02-26-2024 Note* Home Care - Juju Erickson RN - 01/19/2024 4:20 PM EST Safety And Skill Based Pay Manager following case for Discharge Needs. [id number]* Home Care - Juju Erickson RN - 01/19/2024 4:20 PM EST Safety And Skill Based Pay Manager following case for Discharge Needs. [id number] Consult note* Juanita Whittington MD - 01/19/2024 3:30 PM EST Images from the original note were not included. [facility] [place] Pul[place] [address] [place] [id number] [id number] 1940 Date of Admission - 01/16/2024 8:17 AM Date of evaluation - 01/19/2024 Room - [facility] - 3 Consulting - Adrien Curry APRN - * Primary Care Physician - Wayne Conde DO Active Hospital Problem List 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 COPD (chronic obstructive pulmonary disease) (HCC) Lumbar degenerative disc disease Alzheimer's disease, unspecified (CODE) (HCC) Chronic systolic (congestive) heart failure (HCC) Irritable bowel syndrome Psoriasis Osteoporosis with pathological fracture Thoracic compression fracture (HCC) Anxiety GERD (gastroesophageal reflux disease) OAB (overactive bladder) Collagenous colitis Neuropathy Uzair ulcer Renal insufficiency LV dysfunction Hypercholesterolemia Hypothyroid Syncope and collapse Reason for Consult Lung mass History of Present Illness Farzana Herron is a 83 y.o. female admitted for Fall possible syncope, noted to have a left upper lobe lung nodule Patient with a history of Alzheimer disease as per chart anxiety coronary artery disease Uzair ulcer carotid artery disease colitis COPD tobacco use in the past hypertension CHF history of DVT IVC filter in 2015 presented to the emergency room with a fall apparently patient has a history of dementia as per chart poor historian] As per patient has been patient is hard loud noises and patient was fallen on the floor apparently she was briefly unconscious Underwent evaluation with a chest x-ray did show her left upper lobe density followed by the CT of the chest which did confirm spiculated 2.5 into 1.8 cm left upper lobe nodule along with 0.4 cm and 0.5 cm left lower lobe nodule also with underlying emphysema and fibrotic changes pulmonary consult was called for further evaluation and recommendation Patient does have a history of a smoking quit 1989 As per her home medication she was on albuterol inhaler Spiriva Patient did have a CAT scan done in 2018 which was reviewed and reported by me subtle nodular infiltrate left upper lobe however no follow-up CAT scan was available since that time till this admission Patient was awake and alert this morning oriented x [address] she got very angry when I asked her where she is As per she is very short tempered Currently the is by the bedside No reported fever chills Reiger abdominal pain hemoptysis hematemesis melena hematuria no loss of weight Patient lives with her at home they have been since 1983 he does not have any biological children together Medical History Past Medical History Past Medical History: Diagnosis Date Alzheimer's disease, unspecified (CODE) ([facility]) 01/2021 Anxiety CAD (coronary artery disease) 06/2016 Dr. Martinez- [place]-hypokinetic RV- RCA ballon angioplasty- EF 48% 08/10- Dr Gianna Garrett ulcer 2010 Carotid artery disease without cerebral infarction ([facility]) 09/2015 angiogram with <70 % stenosis Left ICA- defers repeat studies Collagenous colitis [address] Teague COPD (chronic obstructive pulmonary disease) ([facility]) 04/2017 ex smoker since 1994--CT also 12/11 Essential hypertension 09/26/2021 GERD (gastroesophageal reflux disease) 2010 Ahmed-EGD 10/07 and 11/08 H/O colonoscopy 10/2018 med- divert ds- no changes, ? repeat nec H/O: UGI bleed 10/2016 severe esophagitis History of DVT of lower extremity 10/2016 IVC filter History of hypertension 1999 off rx since 04/09 History of myocardial infarction 06/2016 LVEF 48 % History of rhabdomyolysis 07/2017 UGI bleed and Hypotension with CHF Hypercholesterolemia IBS (irritable bowel syndrome) with diarrhea LV dysfunction 07/2017 EF 48 % Neuropathy 09/2014 idiopathic per [facility] lower ext OAB (overactive bladder) Osteoporosis with pathological fracture 2011 per [facility]-2013 MRI thoracic spine DDD -prolia injections -- L1 fx 2017 Other specified glaucoma Psoriasis Thoracic compression fracture ([facility]) 1960 horse riding accident- DDD Past Surgical History Past Surgical History: Procedure Laterality Date BALLOON ANGIOPLASTY, ARTERY 06/[address] Martinez CARPAL TUNNEL RELEASE Bilateral 1988 CATARACT EXTRACTION Bilateral 12/09 [facility] CHOLECYSTECTOMY 2002 COLONOSCOPY 10/2018 Ahmed- neg- ? due COLONOSCOPY 08/2011 chronic diarrhea ([facility]) FOOT SURGERY HIATAL HERNIA REPAIR 10/2011 gastroplexy per Bisconti ULNAR TUNNEL RELEASE Right 2002 UPPER GASTROINTESTINAL ENDOSCOPY 09/2011 GERD-uzair ulcer - s/p gastroplexy per Dr. Lamb 11/03 --neg CT abd 03/06 rech 10/07 ([facility]) UPPER GASTROINTESTINAL ENDOSCOPY 10/28/2016 [facility]- esoph stenosis and HH with reflux Social History Social History Socioeconomic History Marital status: Spouse name: Not on file Number of children: Not on file Years of education: Not on file Highest education level: Not on file Occupational History Not on file Tobacco Use Smoking status: Former Packs/day: 0 Types: Cigarettes Quit date: 06/08/1990 Years since quittin.6 Smokeless tobacco: Never Substance and Sexual Activity Alcohol use: No Alcohol/week: 0.0 standard drinks of alcohol Drug use: No Sexual activity: Not on file Other Topics Concern Not on file Social History Narrative to Sameer since 1983. No Children, 2 stepdtrs (one of ETOHism), [place] since 1994, NO ETOH, [employer] retiree in 1995 Social Determinants of Health Financial Resource Strain: Low Risk (01/16/2024) Overall Financial Resource Strain (CARDIA) Difficulty of Paying Living Expenses: Not hard at all Food Insecurity: No Food Insecurity (01/16/2024) Hunger Vital Sign Worried About Running Out of Food in the Last Year: Never true Ran Out of Food in the Last Year: Never true Transportation Needs: No Transportation Needs (01/16/2024) PRAPARE - Transportation Lack of Transportation (Medical): No Lack of Transportation (Non-Medical): No Physical Activity: Inactive (01/16/2024) Exercise Vital Sign Days of Exercise per Week: 0 days Minutes of Exercise per Session: 0 min Stress: No Stress Concern Present (01/16/2024) [place] of Occupational Health - Occupational Stress Questionnaire Feeling of Stress : Not at all Social Connections: Moderately Integrated (01/16/2024) Social Connection and Isolation Panel [NHANES] Frequency of Communication with Friends and Family: Once a week Frequency of Social Gatherings with Friends and Family: Once a week Attends Judaism Services: More than 4 times per year Active Member of Clubs or Organizations: Yes Attends Club or Organization Meetings: 1 to 4 times per year Marital Status: Intimate Partner Violence: Not At Risk (01/16/2024) Humiliation, Afraid, Rape, and Kick questionnaire Fear of Current or Ex-Partner: No Emotionally Abused: No Physically Abused: No Sexually Abused: No Housing Stability: Low Risk (01/16/2024) Housing Stability Vital Sign Unable to Pay for Housing in the Last Year: No Number of Places Lived in the Last Year: 1 Unstable Housing in the Last Year: No Family History Family History Problem Relation Name Age of Onset Cancer Mother age 60 ? met bone CA, Heart disease Father age 70 No Known Problems Sister No Known Problems Sister Kalani Diabetes type II Sister COPD Sister meet heraclio Diabetes Sister No Known Problems Sister Shira Liver disease Brother age 50 of ETOH abuse No Known Problems Brother Philip Immunization History Immunization History Administered Date(s) Administered Influenza Whole 09/22/2009, 09/24/2013 Influenza, High Dose Seasonal, Preservative Free 11/10/2019 Influenza, High-dose Seasonal, Quadrivalent, Preservative Free 11/10/2019, 11/08/2020, 09/26/2021 Influenza, Seasonal, Quadrivalent, Adjuvanted 10/23/2023 Influenza, Unspecified 10/03/2016 Influenza, injectable, quadrivalent, preservative free 09/11/2018 Influenza, seasonal, injectable 10/03/2016 Moderna SARS-CoV-2 Vaccination 12/21/2020, 01/18/2021, 10/25/2021 Pneumococcal Conjugate PCV 13 10/11/2015 Pneumococcal Conjugate, Unspecified 07/25/2005, 09/14/2005 Pneumococcal Polysaccharide PPSV23 07/25/2005, 09/14/2005 Zoster, live 11/18/2014 Medications Current Medications acetaminophen, 650 mg, Oral, q8h aspirin, 81 mg, Oral, q AM atorvastatin, 80 mg, Oral, Nightly clopidogrel, 75 mg, Oral, Daily donepezil, 5 mg, Oral, Nightly enoxaparin, 40 mg, SubCUTAneous, Daily ergocalciferol, 1.25 mg, Oral, Weekly fluticasone, 2 puff, Inhalation, BID gabapentin, 200 mg, Oral, BID isosorbide mononitrate ER, 60 mg, Oral, q AM levothyroxine, 50 mcg, Oral, q AM losartan, 25 mg, Oral, Daily melatonin, 3 mg, Oral, Nightly metoprolol tartrate, 50 mg, Oral, TID mirtazapine, 7.5 mg, Oral, Nightly pantoprazole, 40 mg, Oral, qAM AC tiotropium, 2 puff, Inhalation, Daily PRN Mediations PRN medications: acetaminophen OR acetaminophen, albuterol, haloperidol, ondansetron ODT ORondansetron, perflutren protein A microsphere (Optison) 3 mL in sodium chloride (PF) 0.9 % 10 mL IVsyringe, polyethylene glycol (PEG) 3350, QUEtiapine IV Drips/Infusions Home Medications Current Outpatient Medications Medication Instructions acetaminophen (TYLENOL) 650 mg, Oral albuterol 108 (90 Base) MCG/ACT inhaler 2 puffs, Inhalation, Every 6 hours PRN Aspirin Low Dose 81 mg, Oral, Every morning atorvastatin (LIPITOR) 10 mg, Oral, Nightly Calcium Carb-Cholecalciferol (Oyster Shell Calcium w/D) 500-5 MG-MCG tablet 2 tablets, Oral, Daily before breakfast Calcium Carbonate-Vitamin D (calcium-vitamin D) 500-200 MG-UNIT tablet TAKE 2 TABLETS BY MOUTH EVERY MORNING (BEFORE BREAKFAST) clopidogrel (Plavix) 75 MG tablet TAKE ONE TABLET AT 5PM donepezil (ARICEPT) 5 mg, Oral, Nightly ergocalciferol (Vitamin D2) 1.25 MG (10938 UT) capsule TAKE 1 CAPSULE BY MOUTH ONE TIME PER WEEK fluticasone (Flovent) 220 MCG/ACT inhaler 2 puffs, Inhalation, 2 times daily gabapentin (Neurontin) 300 MG capsule TAKE 1 CAPSULE BY MOUTH TWICE DAILY isosorbide mononitrate ER (IMDUR) 60 mg, Oral, Every morning levothyroxine (SYNTHROID, LEVOXYL) 50 mcg, Oral, Every morning loratadine (CLARITIN) 10 mg, Oral, Every morning metoprolol succinate XL (Toprol-XL) 50 MG 24 hr tablet Increase to 50 mg q day mirtazapine (Remeron) 7.5 MG tablet Decrease to 7.5 mg at HS Mucus Relief 1,200 mg, Oral, 2 times daily omega-3 (Fish Oil) 1000 MG capsule TAKE THREE CAPSULES IN THE MORNING pantoprazole (ProtoNix) 40 MG EC tablet CHANGE TO ONE EACH EVENING BEFORE BEDTIME Spiriva HandiHaler 18 mcg, Inhalation, Daily Allergies Allergies Allergen Reactions Codeine Other reaction(s): GI Upset Per patient - unknown reaction Other reaction(s): Blisters Review of Systems Patient was awake and alert oriented x 2 however she was not answering all the questions she gets angry and agitated and frustrated General Denies any fever or chills HEENT Denies any diplopia, tinnitus or vertigo Resp See HPI Cardiac Denies any chest pain, palpitations, claudication or edema GI Denies any melena, hematochezia, hematemesis or pyrosis Denies any frequency, urgency, hesitancy or incontinence Heme Denies bruising or bleeding easily Neuro Denies any focal motor or sensory deficits Psychiatric Denies anxiety, depression, suicidal ideation Skin Denies rashes, itching, open sores Vitals height is 4' 11 (1.499 m) and weight is 135 lb (61.2 kg). Her temporal temperature is 36.3 C (97.4F). Her blood pressure is 165/90 (abnormal) and her pulse is 96. Her respiration is 18 and oxygen saturation is 96%. Body mass index is 27.27 kg/m . 24 Hour intake and output No intake or output data in the 24 hours ending 01/19/24 1530 @[id number]@ Physical Exam General appearance: Awake, alert, no acute distress. Appears pale On room air oxygen saturation 96% HEENT: Normocephalic, atraumatic. Pupils equil and round, External ear normal, conjunctivae normal,negative for scleral icterus. No congestion. Neck: ROM normal, supple, trachea midline. No lymphadenopathy Cardiovascular: Regular rate and rhythm. Heart sounds normal. Negative for murmur, friction rub or gallop. Pulmonary: Effort normal, no respiratory distress. Abdomen: Soft, non distended, non tender, bowel sounds normal. No palpable masses. No Hepatomegaly Musculoskeletal: ROM normal, Negative for swelling, tenderness or deformity. Skin: Warm, dry. Skin color, texture, turgor normal. Negative for rashes or lesions. Extremities: No clubbing, cyanosis, or extremity edema Neurological: No focal deficits. Alert and oriented x 2. Cranial nerves II-XII are intact Lymphatics: No cervical or axillary lymphadenopathy Psychiatric: Mood, behavior, thought content normal. Cooperative with exam. Labs CBC Results from last 7 days Lab Units 01/19/24 1113 WBC AUTO 10*3/uL 5.9 HEMOGLOBIN g/dL 11.3* HEMATOCRIT % 34.9* PLATELETS AUTO 10*3/uL 278 BMP: Results from last 7 days Lab Units 01/19/24 1113 01/17/24 0629 01/16/24 0842 SODIUM mmol/L 136 139 137 POTASSIUM mmol/L 3.6 3.8 3.4* CHLORIDE mmol/L 102 106 103 CO2 mmol/L 27 28 25 BUN mg/dL 9 14 13 CREATININE mg/dL 0.79 0.90 0.89 GLUCOSE mg/dL 109* 88 134* CALCIUM mg/dL 8.6 8.7 8.7 ABG: LIVER PROFILE Results from last 7 days Lab Units 01/16/24 0842 ALK PHOS U/L 117 BILIRUBIN TOTAL mg/dL 0.7 PROTEIN TOTAL g/dL 6.5 ALT U/L 16 AST U/L 23 INR PTT No results found for: PTT Cultures Viral PCR negative for COVID and influenza Pulmonary function tests (PFT's) Radiology Exam Type: CT of the CHEST EXAM DATE & TIME: 01/16/2024 10:25 AM EST INDICATION: Lung nodule ADDITIONAL INFORMATION: none COMPARISON: none TECHNIQUE: Chest: without intravenous contrast Residual intravenous contrast is present from the CT abdomen pelvis performed nine minutes prior tothis examination. Dose reduction was employed with automated exposure control. FINDINGS: LUNG AND LARGE AIRWAYS: Spiculated 2.5 x 1.8 cm nodule at the left lung apex. Additional 0.5 cm nodule at the left lung base (series 5, image 195) as well as a 0.4 cm nodule within the peripheral left lower lobe (series 5, image 175). No consolidation. Subpleural fibrotic changes at the lung bases.Mild central lobular emphysema at the lung apices. PLEURA: within normal limits. VESSELS: Atherosclerotic changes in the aorta and coronary arteries. HEART: normal size. No pericardial effusion. MEDIASTINUM AND TALA: Moderate hiatal hernia. CHEST WALL AND LOWER NECK: within normal limits. UPPER ABDOMEN: Refer to concurrent CT of the abdomen pelvis for further evaluation. BONES: Mild age indeterminate compression fractures. Plate of L1. Multilevel degenerative changes of the imaged spine. IMPRESSION: 1. Spiculated 2.5 x 1.8 cm nodule at the left lung apex. Further evaluation with PET/CT or tissue sampling is recommended. 2. Additional 0.5 cm and 0.4 cm nodules within the left lower lobe 3. Mild emphysema and fibrotic changes. 4. Moderate hiatal hernia. CRITICAL TEST COMMUNICATION: Dr. Wasserman was notified via [employer] Secure Chat today at 10:[address] chest was reviewed and interpreted by me as noted above in history of present illness Assessment & Recommendations -Spiculated 2.5 x 1.8 cm left upper lobe nodule new in comparison to the CAT scan in 2018 suspicious for neoplasm -Additional 2 subcentimeter nodule in left lower lobes -History of tobacco abuse quit 1989 -Underlying emphysematous lung disease -History of underlying Alzheimer disease Above CT finding were discussed with the patient as well as the patient by the bedside Concern for neoplastic disease was explained to the patient and the Need for further evaluation with PET CT chest and/or biopsy as discussed However when has been asked her the patient if she wants to do anything about that she declined to have any further workup at this time Patient does not have any respiratory distress or hemoptysis or chest pain currently appears to be asymptomatic from the left upper lobe lung nodule this was explained to the also Advised the patient to follow-up in lung nodule clinic for follow-up however they are not really sure at this time whether he wants to follow-up anymore for this lung nodule Advised them that they can always cancel the appointment he did not want to follow-up Patient's pulmonary status appears to be stable at this time No PFT available currently on [facility] Will resume Spiriva / Flovent and albuterol as shown in the patient's home medication Patient already quit smoking in 1989 Advance Directive: Full Code Case discussed with nurse and patient/patient by the bedside Questions and concerns addressed. Total time 60 minutes on this day of encounter includes counseling about inhalers, coordinating plan of care, record and documentation review before and after visit including documentation and time not explicitly included on EMR time stamp for accounting for open encounter. Portions of the information within this encounter were entered using an electronic dictation system. Best attempts were made to edit/proofread the information prior to note completion. Despite the review of information, some errors may remain. If there are questions related to the information contained within the note please contact the signing provider directly. [facility]02-26-2024 Consult note* Juanita Whittington MD - 01/19/2024 3:30 PM EST Images from the original note were not included. [facility] [place] [facility] [place] [address] [place], [place] [id number] [id number] 1940 Date of Admission - 01/16/2024 8:17 AM Date of evaluation - 01/19/2024 Room - [facility] - 3 Consulting - Adrien Curry APRN - * Primary Care Physician - Wayne Conde DO Active Hospital Problem List 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 COPD (chronic obstructive pulmonary disease) (HCC) Lumbar degenerative disc disease Alzheimer's disease, unspecified (CODE) (HCC) Chronic systolic (congestive) heart failure (HCC) Irritable bowel syndrome Psoriasis Osteoporosis with pathological fracture Thoracic compression fracture (HCC) Anxiety GERD (gastroesophageal reflux disease) OAB (overactive bladder) Collagenous colitis Neuropathy Uzair ulcer Renal insufficiency LV dysfunction Hypercholesterolemia Hypothyroid Syncope and collapse Reason for Consult Lung mass History of Present Illness Farzana Herron is a 83 y.o. female admitted for Fall possible syncope, noted to have a left upper lobe lung nodule Patient with a history of Alzheimer disease as per chart anxiety coronary artery disease Uzair ulcer carotid artery disease colitis COPD tobacco use in the past hypertension CHF history of DVT IVC filter in 2015 presented to the emergency room with a fall apparently patient has a history of dementia as per chart poor historian] As per patient has been patient is hard loud noises and patient was fallen on the floor apparently she was briefly unconscious Underwent evaluation with a chest x-ray did show her left upper lobe density followed by the CT of the chest which did confirm spiculated 2.5 into 1.8 cm left upper lobe nodule along with 0.4 cm and 0.5 cm left lower lobe nodule also with underlying emphysema and fibrotic changes pulmonary consult was called for further evaluation and recommendation Patient does have a history of a smoking quit 1990 As per her home medication she was on albuterol inhaler Spiriva Patient did have a CAT scan done in 2018 which was reviewed and reported by me subtle nodular infiltrate left upper lobe however no follow-up CAT scan was available since that time till this admission Patient was awake and alert this morning oriented x [address] she got very angry when I asked her where she is As per she is very short tempered Currently the is by the bedside No reported fever chills Reiger abdominal pain hemoptysis hematemesis melena hematuria no loss of weight Patient lives with her at home they have been since 1983 he does not have any biological children together Medical History Past Medical History Past Medical History: Diagnosis Date Alzheimer's disease, unspecified (CODE) ([facility]) 01/2021 Anxiety CAD (coronary artery disease) 06/2016 Dr. Martinez- AL-hypokinetic RV- RCA ballon angioplasty- EF 48% 08/10- Dr Gianna Garrett ulcer 2011 Carotid artery disease without cerebral infarction ([facility]) 09/2015 angiogram with <70 % stenosis Left ICA- defers repeat studies Collagenous colitis [address] Teague COPD (chronic obstructive pulmonary disease) ([facility]) 04/2017 ex smoker since 1994--CT also 12/11 Essential hypertension 09/26/2021 GERD (gastroesophageal reflux disease) 2010 Ahmed-EGD 10/07 and 11/08 H/O colonoscopy 10/2018 Ahmed- divert ds- no changes, ? repeat nec H/O: UGI bleed 10/2016 severe esophagitis History of DVT of lower extremity 10/2016 IVC filter History of hypertension 1999 off rx since 04/09 History of myocardial infarction 06/2016 LVEF 48 % History of rhabdomyolysis 07/2017 UGI bleed and Hypotension with CHF Hypercholesterolemia IBS (irritable bowel syndrome) with diarrhea LV dysfunction 07/2017 EF 48 % Neuropathy 09/2014 idiopathic per [facility] lower ext OAB (overactive bladder) Osteoporosis with pathological fracture 2011 per [facility]-2013 MRI thoracic spine DDD -prolia injections -- L1 fx 2016 Other specified glaucoma Psoriasis Thoracic compression fracture ([facility]) 1960 horse riding accident- DDD Past Surgical History Past Surgical History: Procedure Laterality Date BALLOON ANGIOPLASTY, ARTERY 06/[address] Martinez CARPAL TUNNEL RELEASE Bilateral 1988 CATARACT EXTRACTION Bilateral 12/09 [facility] CHOLECYSTECTOMY 2002 COLONOSCOPY 10/2018 Ahmed- neg- ? due COLONOSCOPY 08/2011 chronic diarrhea ([facility]med) FOOT SURGERY HIATAL HERNIA REPAIR 10/2011 gastroplexy per Bisconti ULNAR TUNNEL RELEASE Right 2003 UPPER GASTROINTESTINAL ENDOSCOPY 09/2011 GERD-uzair ulcer - s/p gastroplexy per Dr. Lamb 11/03 --neg CT abd 03/06 rech 10/07 (Zahida) UPPER GASTROINTESTINAL ENDOSCOPY 10/28/2016 med- esoph stenosis and HH with reflux Social History Social History Socioeconomic History Marital status: Spouse name: Not on file Number of children: Not on file Years of education: Not on file Highest education level: Not on file Occupational History Not on file Tobacco Use Smoking status: Former Packs/day: 0 Types: Cigarettes Quit date: 06/08/1990 Years since quittin.6 Smokeless tobacco: Never Substance and Sexual Activity Alcohol use: No Alcohol/week: 0.0 standard drinks of alcohol Drug use: No Sexual activity: Not on file Other Topics Concern Not on file Social History Narrative to Sameer since 1983. No Children, 2 stepdtrs (one of ETOHism), NS since 1994, NO ETOH, [employer] retiree in 1995 Social Determinants of Health Financial Resource Strain: Low Risk (01/16/2024) Overall Financial Resource Strain (CARDIA) Difficulty of Paying Living Expenses: Not hard at all Food Insecurity: No Food Insecurity (01/16/2024) Hunger Vital Sign Worried About Running Out of Food in the Last Year: Never true Ran Out of Food in the Last Year: Never true Transportation Needs: No Transportation Needs (01/16/2024) PRAPARE - Transportation Lack of Transportation (Medical): No Lack of Transportation (Non-Medical): No Physical Activity: Inactive (01/16/2024) Exercise Vital Sign Days of Exercise per Week: 0 days Minutes of Exercise per Session: 0 min Stress: No Stress Concern Present (01/16/2024) [place] [employer]ational [employer] - Occupational Stress Questionnaire Feeling of Stress : Not at all Social Connections: Moderately Integrated (01/16/2024) Social Connection and Isolation Panel [NHANES] Frequency of Communication with Friends and Family: Once a week Frequency of Social Gatherings with Friends and Family: Once a week Attends Judaism Services: More than 4 times per year Active Member of Clubs or Organizations: Yes Attends Club or Organization Meetings: 1 to 4 times per year Marital Status: Intimate Partner Violence: Not At Risk (01/16/2024) Humiliation, Afraid, Rape, and Kick questionnaire Fear of Current or Ex-Partner: No Emotionally Abused: No Physically Abused: No Sexually Abused: No Housing Stability: Low Risk (01/16/2024) Housing Stability Vital Sign Unable to Pay for Housing in the Last Year: No Number of Places Lived in the Last Year: 1 Unstable Housing in the Last Year: No Family History Family History Problem Relation Name Age of Onset Cancer Mother age 60 ? met bone CA, Heart disease Father age 70 No Known Problems Sister No Known Problems Sister Kalani Diabetes type II Sister COPD Sister meet heraclio Diabetes Sister No Known Problems Sister Shira Liver disease Brother age 50 of ETOH abuse No Known Problems Brother Philip Immunization History Immunization History Administered Date(s) Administered Influenza Whole 09/22/2009, 09/24/2013 Influenza, High Dose Seasonal, Preservative Free 11/10/2019 Influenza, High-dose Seasonal, Quadrivalent, Preservative Free 11/10/2019, 11/08/2020, 09/26/2021 Influenza, Seasonal, Quadrivalent, Adjuvanted 10/23/2023 Influenza, Unspecified 10/03/2016 Influenza, injectable, quadrivalent, preservative free 09/11/2018 Influenza, seasonal, injectable 10/03/2016 Moderna SARS-CoV-2 Vaccination 12/21/2020, 01/18/2021, 10/25/2021 Pneumococcal Conjugate PCV 13 10/11/2015 Pneumococcal Conjugate, Unspecified 07/25/2005, 09/14/2005 Pneumococcal Polysaccharide PPSV23 07/25/2005, 09/14/2005 Zoster, live 11/18/2014 Medications Current Medications acetaminophen, 650 mg, Oral, q8h aspirin, 81 mg, Oral, q AM atorvastatin, 80 mg, Oral, Nightly clopidogrel, 75 mg, Oral, Daily donepezil, 5 mg, Oral, Nightly enoxaparin, 40 mg, SubCUTAneous, Daily ergocalciferol, 1.25 mg, Oral, Weekly fluticasone, 2 puff, Inhalation, BID gabapentin, 200 mg, Oral, BID isosorbide mononitrate ER, 60 mg, Oral, q AM levothyroxine, 50 mcg, Oral, q AM losartan, 25 mg, Oral, Daily melatonin, 3 mg, Oral, Nightly metoprolol tartrate, 50 mg, Oral, TID mirtazapine, 7.5 mg, Oral, Nightly pantoprazole, 40 mg, Oral, qAM AC tiotropium, 2 puff, Inhalation, Daily PRN Mediations PRN medications: acetaminophen OR acetaminophen, albuterol, haloperidol, ondansetron ODT ORondansetron, perflutren protein A microsphere (Optison) 3 mL in sodium chloride (PF) 0.9 % 10 mL IVsyringe, polyethylene glycol (PEG) 3350, QUEtiapine IV Drips/Infusions Home Medications Current Outpatient Medications Medication Instructions acetaminophen (TYLENOL) 650 mg, Oral albuterol 108 (90 Base) MCG/ACT inhaler 2 puffs, Inhalation, Every 6 hours PRN Aspirin Low Dose 81 mg, Oral, Every morning atorvastatin (LIPITOR) 10 mg, Oral, Nightly Calcium Carb-Cholecalciferol (Oyster Shell Calcium w/D) 500-5 MG-MCG tablet 2 tablets, Oral, Daily before breakfast Calcium Carbonate-Vitamin D (calcium-vitamin D) 500-200 MG-UNIT tablet TAKE 2 TABLETS BY MOUTH EVERY MORNING (BEFORE BREAKFAST) clopidogrel (Plavix) 75 MG tablet TAKE ONE TABLET AT 5PM donepezil (ARICEPT) 5 mg, Oral, Nightly ergocalciferol (Vitamin D2) 1.25 MG (39395 UT) capsule TAKE 1 CAPSULE BY MOUTH ONE TIME PER WEEK fluticasone (Flovent) 220 MCG/ACT inhaler 2 puffs, Inhalation, 2 times daily gabapentin (Neurontin) 300 MG capsule TAKE 1 CAPSULE BY MOUTH TWICE DAILY isosorbide mononitrate ER (IMDUR) 60 mg, Oral, Every morning levothyroxine (SYNTHROID, LEVOXYL) 50 mcg, Oral, Every morning loratadine (CLARITIN) 10 mg, Oral, Every morning metoprolol succinate XL (Toprol-XL) 50 MG 24 hr tablet Increase to 50 mg q day mirtazapine (Remeron) 7.5 MG tablet Decrease to 7.5 mg at HS Mucus Relief 1,200 mg, Oral, 2 times daily omega-3 (Fish Oil) 1000 MG capsule TAKE THREE CAPSULES IN THE MORNING pantoprazole (ProtoNix) 40 MG EC tablet CHANGE TO ONE EACH EVENING BEFORE BEDTIME Spiriva HandiHaler 18 mcg, Inhalation, Daily Allergies Allergies Allergen Reactions Codeine Other reaction(s): GI Upset Per patient - unknown reaction Other reaction(s): Blisters Review of Systems Patient was awake and alert oriented x 2 however she was not answering all the questions she gets angry and agitated and frustrated General Denies any fever or chills HEENT Denies any diplopia, tinnitus or vertigo Resp See HPI Cardiac Denies any chest pain, palpitations, claudication or edema GI Denies any melena, hematochezia, hematemesis or pyrosis Denies any frequency, urgency, hesitancy or incontinence Heme Denies bruising or bleeding easily Neuro Denies any focal motor or sensory deficits Psychiatric Denies anxiety, depression, suicidal ideation Skin Denies rashes, itching, open sores Vitals height is 4' 11 (1.499 m) and weight is 135 lb (61.2 kg). Her temporal temperature is 36.3 C (97.4F). Her blood pressure is 165/90 (abnormal) and her pulse is 96. Her respiration is 18 and oxygen saturation is 96%. Body mass index is 27.27 kg/m . 24 Hour intake and output No intake or output data in the 24 hours ending 01/19/24 1530 @[id number]@ Physical Exam General appearance: Awake, alert, no acute distress. Appears pale On room air oxygen saturation 96% HEENT: Normocephalic, atraumatic. Pupils equil and round, External ear normal, conjunctivae normal,negative for scleral icterus. No congestion. Neck: ROM normal, supple, trachea midline. No lymphadenopathy Cardiovascular: Regular rate and rhythm. Heart sounds normal. Negative for murmur, friction rub or gallop. Pulmonary: Effort normal, no respiratory distress. Abdomen: Soft, non distended, non tender, bowel sounds normal. No palpable masses. No Hepatomegaly Musculoskeletal: ROM normal, Negative for swelling, tenderness or deformity. Skin: Warm, dry. Skin color, texture, turgor normal. Negative for rashes or lesions. Extremities: No clubbing, cyanosis, or extremity edema Neurological: No focal deficits. Alert and oriented x 2. Cranial nerves II-XII are intact Lymphatics: No cervical or axillary lymphadenopathy Psychiatric: Mood, behavior, thought content normal. Cooperative with exam. Labs CBC Results from last 7 days Lab Units 01/19/24 1113 WBC AUTO 10*3/uL 5.9 HEMOGLOBIN g/dL 11.3* HEMATOCRIT % 34.9* PLATELETS AUTO 10*3/uL 278 BMP: Results from last 7 days Lab Units 01/19/24 1113 01/17/24 0629 01/16/24 0842 SODIUM mmol/L 136 139 137 POTASSIUM mmol/L 3.6 3.8 3.4* CHLORIDE mmol/L 102 106 103 CO2 mmol/L 27 28 25 BUN mg/dL 9 14 13 CREATININE mg/dL 0.79 0.90 0.89 GLUCOSE mg/dL 109* 88 134* CALCIUM mg/dL 8.6 8.7 8.7 ABG: LIVER PROFILE Results from last 7 days Lab Units 01/16/24 0842 ALK PHOS U/L 117 BILIRUBIN TOTAL mg/dL 0.7 PROTEIN TOTAL g/dL 6.5 ALT U/L 16 AST U/L 23 INR PTT No results found for: PTT Cultures Viral PCR negative for COVID and influenza Pulmonary function tests (PFT's) Radiology Exam Type: CT of the CHEST EXAM DATE & TIME: 01/16/2024 10:25 AM EST INDICATION: Lung nodule ADDITIONAL INFORMATION: none COMPARISON: none TECHNIQUE: Chest: without intravenous contrast Residual intravenous contrast is present from the CT abdomen pelvis performed nine minutes prior tothis examination. Dose reduction was employed with automated exposure control. FINDINGS: LUNG AND LARGE AIRWAYS: Spiculated 2.5 x 1.8 cm nodule at the left lung apex. Additional 0.5 cm nodule at the left lung base (series 5, image 195) as well as a 0.4 cm nodule within the peripheral left lower lobe (series 5, image 175). No consolidation. Subpleural fibrotic changes at the lung bases.Mild central lobular emphysema at the lung apices. PLEURA: within normal limits. VESSELS: Atherosclerotic changes in the aorta and coronary arteries. HEART: normal size. No pericardial effusion. MEDIASTINUM AND TALA: Moderate hiatal hernia. CHEST WALL AND LOWER NECK: within normal limits. UPPER ABDOMEN: Refer to concurrent CT of the abdomen pelvis for further evaluation. BONES: Mild age indeterminate compression fractures. Plate of L1. Multilevel degenerative changes of the imaged spine. IMPRESSION: 1. Spiculated 2.5 x 1.8 cm nodule at the left lung apex. Further evaluation with PET/CT or tissue sampling is recommended. 2. Additional 0.5 cm and 0.4 cm nodules within the left lower lobe 3. Mild emphysema and fibrotic changes. 4. Moderate hiatal hernia. CRITICAL TEST COMMUNICATION: Dr. Wasserman was notified via [employer] Secure Chat today at 10:[address] chest was reviewed and interpreted by me as noted above in history of present illness Assessment & Recommendations -Spiculated 2.5 x 1.8 cm left upper lobe nodule new in comparison to the CAT scan in 2018 suspicious for neoplasm -Additional 2 subcentimeter nodule in left lower lobes -History of tobacco abuse quit 1989 -Underlying emphysematous lung disease -History of underlying Alzheimer disease Above CT finding were discussed with the patient as well as the patient by the bedside Concern for neoplastic disease was explained to the patient and the Need for further evaluation with PET CT chest and/or biopsy as discussed However when has been asked her the patient if she wants to do anything about that she declined to have any further workup at this time Patient does not have any respiratory distress or hemoptysis or chest pain currently appears to be asymptomatic from the left upper lobe lung nodule this was explained to the also Advised the patient to follow-up in lung nodule clinic for follow-up however they are not really sure at this time whether he wants to follow-up anymore for this lung nodule Advised them that they can always cancel the appointment he did not want to follow-up Patient's pulmonary status appears to be stable at this time No PFT available currently on [place] Will resume Spiriva / Flovent and albuterol as shown in the patient's home medication Patient already quit smoking in 1989 Advance Directive: Full Code Case discussed with nurse and patient/patient by the bedside Questions and concerns addressed. Total time 60 minutes on this day of encounter includes counseling about inhalers, coordinating plan of care, record and documentation review before and after visit including documentation and time not explicitly included on EMR time stamp for accounting for open encounter. Portions of the information within this encounter were entered using an electronic dictation system. Best attempts were made to edit/proofread the information prior to note completion. Despite the review of information, some errors may remain. If there are questions related to the information contained within the note please contact the signing provider directly. * Zunilda Diamond APRN - SAND OPERATOR - 01/19/2024 8:50 AM ESTAssociated Order(s): IP CONSULT TO GERIATRICS [facility] Geriatric Medicine Inpatient Consult Service Admission Date: 01/16/2024 Admission Status: INPATIENT Chief Complaint: want to go home Reason for Appointment Geriatrics consulted for falls and dementia Assessment & Plan Principal Problem: Syncope and collapse Acute Metabolic Encephalopathy --Waxing/waning --Etiology likely hospital environment, acute illness, medications. Patient with recent fall at home with LOC per . CT has shown Lung nodules - pulmonology consult pending. requests Full Code. Abdominal xray 01/18 - mild ileus. Primary managing. --reviewed home medications - will resume Gabapentin at lower dose 200mg twice a day (home dose 300mg twice a day) to prevent withdrawal. reports patient has history of back pain and fractures. --Encourage PO intake, time up in chair, family visits, supervised ambulation, and sleep hygiene --If agitated, assess for and consider treating for pain --QTc= 433 --[place] PRN Seroquel and Haldol for ONLY if danger to self/others/treatment Will start Seroquel 12.5mg twice a day PRN 1st line and continue Haldol 0.5mg IM every 6 hours as needed second line for agitation --Start scheduled Melatonin at night --Monitor for constipation/urinary retention - last BM 01/17 small; check PVR --Possible medication contributions: Gabapentin withdrawal Dementia -has been diagnosed with Alzheimer's based on chart review and on Aricept 5mg daily - reports patient is not currently at baseline - states he was not aware she was on medication for her memory but glad she is -recommend follow up at [facility] for more in depth cognitive testing when in usual state of health -Has been on Remeron 7.5mg every HS. Reports some trouble sleeping. Appetite is good per . -check B12 Debility -PT and OT has been consulted -uses a cane at home -check Vit D level I spent total time of 75 minutes face to face with the patient and/or family discussing the diagnosis and importance of compliance with the treatment plan as well as documenting on the day of the visit. In addition, that total time includes the following: -Reviewing previous notes, -Reviewing labs, -Obtaining and/or reviewing separately obtained history, -Ordering prescription medications, tests and procedures, -Communicating results to the patient/family/caregiver, - Counseling/educating the patient/family/caregiver, -Documenting clinical information in the patients electronic record, and -Performing a medically appropriate exam and/or evaluation Subjective: HPI 83 y.o. year-old female with PMH of Alzheimer's, anxiety, CAD, uzair ulcer, Carotid artery disease,COPD, HTN, stroke, GERD, Upper GI bleed due to esophagitis, , chronic systolic heart failure, colitis, hypothyroidism, history of DVT (IVC filter), Neuropathy, OAB, osteoporosis, chronic back pain presented to [facility] on 01/16/24 with complaints of syncope and fall. She was going to bathroom when heard a loud noise and reports patient was briefly unconscious. Patient complained of nausea. Admitted with syncope, lung nodule, dehydration, colitis, hypokalemia. Further EPIC review: -patient is former smoker 20-30 years. -spiculated lung nodule found on CT. Pulmonology consult pending. -recently seen by primary care 10/23/23. Noted no recent falls. -history of Alzheimer's on Aricept -received Seroquel 25mg x 1 on 01/17 -no use of PRN Haldol -01/18 abdominal xray - suspect mild ileus -01/16 CT chest - spiculated 2.5 x 1.8 cm nodule at the left lung apex. Additional 0.5 cm and 0.4 cmnodules within the left lower lobe. Mild emphysema and fibrotic changes. Moderate hiatal hernia. -01/16 CT abdomen mild proximal colitis, moderate sized sliding hiatal hernia -01/16 CT cervical spine - osteopenia, multilevel degenerative changes -01/16 CT head - No acute intracranial hemorrhage or mass effect.Cerebral volume loss and changes ofmicroangiopathy. -PDMP review - Gabapentin filled 12/11/23 30 days #60. Regular fills. -Dispense report reviewed - last fills September for 30 days. Now uses [facility] for delivery and packaged meds. Nursing: reports patient up frequently during the night using the restroom. A urine and bladder scan are to be obtained. Confused, restless at times. Conversation with patient: patient denies pain. Seems irritated when asked questions. States I don't know to most questions. Conversation with caregiver: spouse. Sameer at bedside. - is very [place]. He reports patient has confusion when ill but then memory gets better. This is what is happening again this time. She is not at baseline currently. He feels her memory at homeis good and not like it is now. She is independent with ADLs. She forgets to take pills sometimes, but reminds her. Use [facility] - packaged meds. She has not driven for several years. Has not done shopping or prepare meals for a about a year. -Fall prior to admission, denies other falls. -he asks about lung lesions and what next step is -Home Medications: listed under Media also, names and doses provided by . Spiriva, Levothyroxine 50mcg, ASA 81mg, Atorvastatin 10mg, Clopidogrel 75mg, Guaifenesin ER 600mg, Isosorbide mono ER 60mg, Loratadine 10mg, Donepezil 5mg, Metoprolol succinate 50mg, Mirtazapine 7.5mg, Gabapentin 300mg, Pantoprazole 40mg, Sucralfaste 1gm, Fluticasone 220mcg Advance Care Planning Healthcare Power of Highway Commissioner: Unknown NOK Code Status: Full Code- requests Full Code Allergies Allergen Reactions Codeine Other reaction(s): GI Upset Per patient - unknown reaction Other reaction(s): Blisters Current Facility-Administered Medications: acetaminophen (Tylenol) tablet 650 mg, 650 mg, Oral, q6h PRN OR acetaminophen (Tylenol) suppository 650 mg, 650 mg, Rectal, q6h PRN, Re Padilla MD acetaminophen (Tylenol) tablet 650 mg, 650 mg, Oral, q8h, Adrien Curry APRN - SAND OPERATOR albuterol 108 (90 Base) MCG/ACT inhaler 2 puff, 2 puff, Inhalation, q6h PRN, Re Padilla MD, 2 puff at 01/17/24 0925 aspirin EC tablet 81 mg, 81 mg, Oral, q AM, Re Padilla MD, 81 mg at 01/19/24 0806 atorvastatin (Lipitor) tablet 80 mg, 80 mg, Oral, Nightly, ANGELLA Ramirez CNP clopidogrel (Plavix) tablet 75 mg, 75 mg, Oral, Daily, Re Padilla MD, 75 mg at 01/19/24805 dextrose 5 % and sodium chloride 0.9 % infusion, 75 mL/hr, IntraVENous, Continuous, ANGELLA Ramirez CNP, Last Rate: 75 mL/hr at 01/18/242022, 75 mL/hr at 01/18/242022 donepezil (Aricept) tablet 5 mg, 5 mg, Oral, Nightly, Re Padilla MD, 5 mg at 01/18/242022 enoxaparin (Lovenox) syringe 40 mg, 40 mg, SubCUTAneous, Daily, Re Padilla MD, 40 mg at 01/19/24805 ergocalciferol (Vitamin D2) capsule 1.25 mg, 1.25 mg, Oral, Weekly, Re Padilla MD, 1.25 mg at 01/17/24923 fluticasone (Flovent) 220 MCG/ACT inhaler 2 puff, 2 puff, Inhalation, BID, Re Padilla MD, 2 puff at 01/19/24811 haloperidol (Haldol) tablet 0.5 mg, 0.5 mg, Oral, q6h PRN, ANGELLA Ramirez CNP isosorbide mononitrate ER (Imdur) 24 hr tablet 60 mg, 60 mg, Oral, q AM, Re Padilla MD, 60 mg at 01/19/24805 levothyroxine (Synthroid, Levoxyl) tablet 50 mcg, 50 mcg, Oral, q AM, Re Padilla MD, 50 mcg at 01/19/24805 losartan (Cozaar) tablet 25 mg, 25 mg, Oral, Daily, ANGELLA Ramirez CNP metoprolol tartrate (Lopressor) tablet 50 mg, 50 mg, Oral, TID, ANGELLA Ramirez CNP, 50 mg at 01/19/24811 mirtazapine (Remeron) tablet 7.5 mg, 7.5 mg, Oral, Nightly, Re Padilla MD, 7.5 mg at 01/18/242022 ondansetron ODT (Zofran-ODT) disintegrating tablet 4 mg, 4 mg, Oral, q8h PRN, 4 mg at 01/17/242205OR ondansetron (Zofran) injection 4 mg, 4 mg, IntraVENous, q6h PRN, Re Padilla MD, 4 mg at 01/17/24 1425 pantoprazole (ProtoNix) EC tablet 40 mg, 40 mg, Oral, qAM AC, Re Padilla MD, 40 mg at 01/19/24 0555 perflutren protein A microsphere (Optison) 3 mL in sodium chloride (PF) 0.9 % 10 mL IV syringe, 0-10 mL, IntraVENous, Once PRN, Re Padilla MD polyethylene glycol (PEG) 3350 (Miralax) packet 17 g, 17 g, Oral, Daily PRN, Re Padilla MD tiotropium (Spiriva Respimat) 2.5 MCG/ACT inhaler 2 puff, 2 puff, Inhalation, Daily, Re Padilla MD, 2 puff at 01/19/24 0812 Past Medical History: Diagnosis Date Alzheimer's disease, unspecified (CODE) ([facility]) 01/2021 Anxiety CAD (coronary artery disease) 06/2016 Dr. Martinez- AL-hypokinetic RV- RCA ballon angioplasty- EF 48% 08/10- Dr Gianna Garrett ulcer 2011 Carotid artery disease without cerebral infarction ([facility]) 09/2015 angiogram with <70 % stenosis Left ICA- defers repeat studies Collagenous colitis [address] Teague COPD (chronic obstructive pulmonary disease) ([facility]) 04/2017 ex smoker since 1994--CT also 12/11 Essential hypertension 09/26/2021 GERD (gastroesophageal reflux disease) 2010 med-EGD 10/07 and 11/08 H/O colonoscopy 10/2018 med- divert ds- no changes, ? repeat nec H/O: UGI bleed 10/2016 severe esophagitis History of DVT of lower extremity 10/2016 IVC filter History of hypertension 1999 off rx since 04/09 History of myocardial infarction 06/2016 LVEF 48 % History of rhabdomyolysis 07/2017 UGI bleed and Hypotension with CHF Hypercholesterolemia IBS (irritable bowel syndrome) with diarrhea LV dysfunction 07/2017 EF 48 % Neuropathy 09/2014 idiopathic per [facility] lower ext OAB (overactive bladder) Osteoporosis with pathological fracture 2011 per [facility]-2013 MRI thoracic spine DDD -prolia injections -- L1 fx 2017 Other specified glaucoma Psoriasis Thoracic compression fracture (HCC) 1960 horse riding accident- DDD Past Surgical History: Procedure Laterality Date BALLOON ANGIOPLASTY, ARTERY 06/[address] Martinez CARPAL TUNNEL RELEASE Bilateral 1988 CATARACT EXTRACTION Bilateral 12/09 [facility] CHOLECYSTECTOMY 2002 COLONOSCOPY 10/2018 Ahmed- neg- ? due COLONOSCOPY 08/2011 chronic diarrhea (med) FOOT SURGERY HIATAL HERNIA REPAIR 10/2011 gastroplexy per Adonis ULNAR TUNNEL RELEASE Right 2003 UPPER GASTROINTESTINAL ENDOSCOPY 09/2011 GERD-uzair ulcer - s/p gastroplexy per Dr. Lamb 11/03 --neg CT abd 03/06 rech 10/07 ([facility]) UPPER GASTROINTESTINAL ENDOSCOPY 10/28/2016 [facility]- esoph stenosis and HH with reflux Social History Tobacco Use Smoking status: Former Packs/day: 0 Types: Cigarettes Quit date: 06/08/1990 Years since quittin.6 Smokeless tobacco: Never Substance Use Topics Alcohol use: No Alcohol/week: 0.0 standard drinks of alcohol Social History Social History Narrative to Sameer since 1983. No Children, 2 stepdtrs (one of ETOHism), NS since 1994, NO ETOH, [employer] retiree in 1995 Family History Family History Problem Relation Name Age of Onset Cancer Mother age 60 ? met bone CA, Heart disease Father age 70 No Known Problems Sister No Known Problems Sister Kalani Diabetes type II Sister COPD Sister meet pulliam Diabetes Sister No Known Problems Sister Shira Liver disease Brother age 50 of ETOH abuse No Known Problems Brother Philip Family Status Relation Name Status Mother at age 60 Bone CA Father at age 70 CAD Sister Sister Kalani Alive Sister Sister meet pulliam Sister Sister Shira Sister Brother at age 50 Brother Philip Alive Family history reviewed as above Review of Systems Constitutional: Negative for fatigue. Respiratory: Negative for shortness of breath. Genitourinary: Positive for frequency (per nursing). Negative for difficulty urinating and dysuria. Psychiatric/Behavioral: Positive for confusion and sleep disturbance. Functional Status Prior to Admission: (I: Independent, A: Assisted, D: Dependent) ADLs I A D Notes Bathing [x] [] [] Dressing [x] [] [] Toileting [x] [] [] Transfers [x] [] [] Feeding [x] [] [] Ambulation [] [x] [] Assistive devices: straight cane IADLs I A D assists Telephone [] [] [] Transportation [] [] [x] Shopping [] [] [x] Meal prep [] [] [x] Housework [] [] [x] Medications [] [x] [] Finances [] [] [x] Objective: BP (!) 158/108 Pulse 96 Temp 36.3 C (97.4 F) (Temporal) Resp 18 Ht 4' 11 (1.499 m) Wt 135 lb (61.2 kg) SpO2 96% BMI 27.27 kg/m No intake or output data in the 24 hours ending 01/19/24 0850 Wt Readings from Last 3 Encounters: 01/17/24 135 lb (61.2 kg) 10/23/23 122 lb (55.3 kg) 07/17/23 121 lb (54.9 kg) Physical Exam Constitutional: General: She is not in acute distress. HENT: Head: Normocephalic. Mouth/Throat: Mouth: Mucous membranes are moist. Cardiovascular: Rate and Rhythm: Normal rate and regular rhythm. Pulmonary: Effort: Pulmonary effort is normal. No respiratory distress. Breath sounds: Normal breath sounds. No wheezing. Abdominal: General: Bowel sounds are normal. There is no distension. Palpations: Abdomen is soft. Tenderness: There is no abdominal tenderness. Musculoskeletal: Right lower leg: No edema. Left lower leg: No edema. Skin: Findings: Bruising (upper arms) present. Neurological: Mental Status: She is alert. Comments: Not following all commands and not answering orientation questions. States I know when told where she is at. Psychiatric: Attention and Perception: She is inattentive. Behavior: Behavior is uncooperative. Cognition and Memory: Cognition is impaired. Comments: Irritated with questions Labs and Imaging: Recent Results (from the past 24 hour(s)) ECG 12 lead Collection Time: 01/18/24 9:22 AM Result Value Ref Range Heart Rate 84 bpm QRSD Interval 80 ms QT Interval 366 ms QTC Interval 433 ms P Heppner 18 degrees QRS Heppner -24 degrees T Wave Heppner 37 degrees DE Interval 176 ms POCT glucose meter Collection Time: 01/18/24 8:31 PM Result Value Ref Range Glucose 88 70 - 100 mg/dL Lab Results Component Value Date TSH 1.283 01/17/2024 No components found for: B12 No results found for: VITD25 Reviewed: active problem list, medication list, allergies, family history, social history, notes from last several encounters, lab results, imaging Follow-up: will follow with you ANGELLA MARC CNP 01/19/24 8:50 AM documented in this [id number] Note* Care Coordination - Cherelle Larson RCP - 01/19/2024 12:32 PM EST Reviewed EMR from weekend. Patient remains admitted with ongoing confusion. Per inpt team, family wants to pursue diagnostic work up for lung nodule. Awaiting inpt pulmonary consult and possible CT lung Bx. Navigator will continue to assist with lung nodule follow up. [id number]* Care Coordination - Cherelle Larson RCP - 01/19/2024 12:32 PM EST Reviewed EMR from weekend. Patient remains admitted with ongoing confusion. Per inpt team, family wants to pursue diagnostic work up for lung nodule. Awaiting inpt pulmonary consult and possible CT lung Bx. Navigator will continue to assist with lung nodule follow up. [facility] [id number] Consult note* ANGELLA Marc CNP - 01/19/2024 8:50 AM ESTAssociated Order(s): IP CONSULT TO GERIATRICS [facility] Geriatric Medicine Inpatient Consult Service Admission Date: 01/16/2024 Admission Status: INPATIENT Chief Complaint: want to go home Reason for Appointment Geriatrics consulted for falls and dementia Assessment & Plan Principal Problem: Syncope and collapse Acute Metabolic Encephalopathy --Waxing/waning --Etiology likely hospital environment, acute illness, medications. Patient with recent fall at home with LOC per . CT has shown Lung nodules - pulmonology consult pending. requests Full Code. Abdominal xray 01/18 - mild ileus. Primary managing. --reviewed home medications - will resume Gabapentin at lower dose 200mg twice a day (home dose 300mg twice a day) to prevent withdrawal. reports patient has history of back pain and fractures. --Encourage PO intake, time up in chair, family visits, supervised ambulation, and sleep hygiene --If agitated, assess for and consider treating for pain --QTc= 433 --[place] PRN Seroquel and Haldol for ONLY if danger to self/others/treatment Will start Seroquel 12.5mg twice a day PRN 1st line and continue Haldol 0.5mg IM every 6 hours as needed second line for agitation --Start scheduled Melatonin at night --Monitor for constipation/urinary retention - last BM 01/17 small; check PVR --Possible medication contributions: Gabapentin withdrawal Dementia -has been diagnosed with Alzheimer's based on chart review and on Aricept 5mg daily - reports patient is not currently at baseline - states he was not aware she was on medication for her memory but glad she is -recommend follow up at [facility] for more in depth cognitive testing when in usual state of health -Has been on Remeron 7.5mg every HS. Reports some trouble sleeping. Appetite is good per . -check B12 Debility -PT and OT has been consulted -uses a cane at home -check Vit D level I spent total time of 75 minutes face to face with the patient and/or family discussing the diagnosis and importance of compliance with the treatment plan as well as documenting on the day of the visit. In addition, that total time includes the following: -Reviewing previous notes, -Reviewing labs, -Obtaining and/or reviewing separately obtained history, -Ordering prescription medications, tests and procedures, -Communicating results to the patient/family/caregiver, - Counseling/educating the patient/family/caregiver, -Documenting clinical information in the patients electronic record, and -Performing a medically appropriate exam and/or evaluation Subjective: HPI 83 y.o. year-old female with PMH of Alzheimer's, anxiety, CAD, uzair ulcer, Carotid artery disease,COPD, HTN, stroke, GERD, Upper GI bleed due to esophagitis, , chronic systolic heart failure, colitis, hypothyroidism, history of DVT (IVC filter), Neuropathy, OAB, osteoporosis, chronic back pain presented to [facility] on 01/16/24 with complaints of syncope and fall. She was going to bathroom when heard a loud noise and reports patient was briefly unconscious. Patient complained of nausea. Admitted with syncope, lung nodule, dehydration, colitis, hypokalemia. Further EPIC review: -patient is former smoker 20-30 years. -spiculated lung nodule found on CT. Pulmonology consult pending. -recently seen by primary care 10/23/23. Noted no recent falls. -history of Alzheimer's on Aricept -received Seroquel 25mg x 1 on 01/17 -no use of PRN Haldol -01/18 abdominal xray - suspect mild ileus -01/16 CT chest - spiculated 2.5 x 1.8 cm nodule at the left lung apex. Additional 0.5 cm and 0.4 cmnodules within the left lower lobe. Mild emphysema and fibrotic changes. Moderate hiatal hernia. -01/16 CT abdomen mild proximal colitis, moderate sized sliding hiatal hernia -01/16 CT cervical spine - osteopenia, multilevel degenerative changes -01/16 CT head - No acute intracranial hemorrhage or mass effect.Cerebral volume loss and changes ofmicroangiopathy. -PDMP review - Gabapentin filled 12/11/23 30 days #60. Regular fills. -Dispense report reviewed - last fills September for 30 days. Now uses [facility] for delivery and packaged meds. Nursing: reports patient up frequently during the night using the restroom. A urine and bladder scan are to be obtained. Confused, restless at times. Conversation with patient: patient denies pain. Seems irritated when asked questions. States I don't know to most questions. Conversation with caregiver: spouse. Sameer at bedside. - is very [place]. He reports patient has confusion when ill but then memory gets better. This is what is happening again this time. She is not at baseline currently. He feels her memory at homeis good and not like it is now. She is independent with ADLs. She forgets to take pills sometimes, but reminds her. Use [facility] - packaged meds. She has not driven for several years. Has not done shopping or prepare meals for a about a year. -Fall prior to admission, denies other falls. -he asks about lung lesions and what next step is -Home Medications: listed under Media also, names and doses provided by . Spiriva, Levothyroxine 50mcg, ASA 81mg, Atorvastatin 10mg, Clopidogrel 75mg, Guaifenesin ER 600mg, Isosorbide mono ER 60mg, Loratadine 10mg, Donepezil 5mg, Metoprolol succinate 50mg, Mirtazapine 7.5mg, Gabapentin 300mg, Pantoprazole 40mg, Sucralfaste 1gm, Fluticasone 220mcg Advance Care Planning Healthcare Power of Highway Commissioner: Unknown NOK Code Status: Full Code- requests Full Code Allergies Allergen Reactions Codeine Other reaction(s): GI Upset Per patient - unknown reaction Other reaction(s): Blisters Current Facility-Administered Medications: acetaminophen (Tylenol) tablet 650 mg, 650 mg, Oral, q6h PRN OR acetaminophen (Tylenol) suppository 650 mg, 650 mg, Rectal, q6h PRN, Re Padilla MD acetaminophen (Tylenol) tablet 650 mg, 650 mg, Oral, q8h, ANGELLA Ramirez CNP albuterol 108 (90 Base) MCG/ACT inhaler 2 puff, 2 puff, Inhalation, q6h PRN, Re Padilla MD, 2 puff at 01/17/24 0925 aspirin EC tablet 81 mg, 81 mg, Oral, q AM, Re Padilla MD, 81 mg at 01/19/24 0806 atorvastatin (Lipitor) tablet 80 mg, 80 mg, Oral, Nightly, ANGELLA Ramirez CNP clopidogrel (Plavix) tablet 75 mg, 75 mg, Oral, Daily, Re Padilla MD, 75 mg at 01/19/24 0806 dextrose 5 % and sodium chloride 0.9 % infusion, 75 mL/hr, IntraVENous, Continuous, ANGELLA Ramirez CNP, Last Rate: 75 mL/hr at 01/18/242022, 75 mL/hr at 01/18/242022 donepezil (Aricept) tablet 5 mg, 5 mg, Oral, Nightly, Re Padilla MD, 5 mg at 01/18/242022 enoxaparin (Lovenox) syringe 40 mg, 40 mg, SubCUTAneous, Daily, Re Padilla MD, 40 mg at 01/19/24805 ergocalciferol (Vitamin D2) capsule 1.25 mg, 1.25 mg, Oral, Weekly, Re Padilla MD, 1.25 mg at 01/17/24923 fluticasone (Flovent) 220 MCG/ACT inhaler 2 puff, 2 puff, Inhalation, BID, Re Padilla MD, 2 puff at 01/19/24811 haloperidol (Haldol) tablet 0.5 mg, 0.5 mg, Oral, q6h PRN, ANGELLA Ramirez CNP isosorbide mononitrate ER (Imdur) 24 hr tablet 60 mg, 60 mg, Oral, q AM, Re Padilla MD, 60 mg at 01/19/24805 levothyroxine (Synthroid, Levoxyl) tablet 50 mcg, 50 mcg, Oral, q AM, Re Padilla MD, 50 mcg at 01/19/24805 losartan (Cozaar) tablet 25 mg, 25 mg, Oral, Daily, ANGELLA Ramirez CNP metoprolol tartrate (Lopressor) tablet 50 mg, 50 mg, Oral, TID, ANGELAL Ramirez CNP, 50 mg at 01/19/24811 mirtazapine (Remeron) tablet 7.5 mg, 7.5 mg, Oral, Nightly, Re Padilla MD, 7.5 mg at 01/18/242022 ondansetron ODT (Zofran-ODT) disintegrating tablet 4 mg, 4 mg, Oral, q8h PRN, 4 mg at 01/17/242205OR ondansetron (Zofran) injection 4 mg, 4 mg, IntraVENous, q6h PRN, Re Padilla MD, 4 mg at 01/17/24 1425 pantoprazole (ProtoNix) EC tablet 40 mg, 40 mg, Oral, qAM AC, Re Padilla MD, 40 mg at 01/19/24 0555 perflutren protein A microsphere (Optison) 3 mL in sodium chloride (PF) 0.9 % 10 mL IV syringe, 0-10 mL, IntraVENous, Once PRN, Re Padilla MD polyethylene glycol (PEG) 3350 (Miralax) packet 17 g, 17 g, Oral, Daily PRN, Re Padilla MD tiotropium (Spiriva Respimat) 2.5 MCG/ACT inhaler 2 puff, 2 puff, Inhalation, Daily, Re Padilla MD, 2 puff at 01/19/24 0812 Past Medical History: Diagnosis Date Alzheimer's disease, unspecified (CODE) ([facility]) 01/2021 Anxiety CAD (coronary artery disease) 06/2016 Dr. Martinez- AL-hypokinetic RV- RCA ballon angioplasty- EF 48% 08/10- Dr Gianna Garrett ulcer 2011 Carotid artery disease without cerebral infarction ([facility]) 09/2015 angiogram with <70 % stenosis Left ICA- defers repeat studies Collagenous colitis [address] Teague COPD (chronic obstructive pulmonary disease) ([facility]) 04/2017 ex smoker since 1994--CT also 12/11 Essential hypertension 09/26/2021 GERD (gastroesophageal reflux disease) 2010 [facility]-EGD 10/07 and 11/08 H/O colonoscopy 10/2018 [facility]- divert ds- no changes, ? repeat nec H/O: UGI bleed 10/2016 severe esophagitis History of DVT of lower extremity 10/2016 IVC filter History of hypertension 1999 off rx since 04/09 History of myocardial infarction 06/2016 LVEF 48 % History of rhabdomyolysis 07/2017 UGI bleed and Hypotension with CHF Hypercholesterolemia IBS (irritable bowel syndrome) with diarrhea LV dysfunction 07/2017 EF 48 % Neuropathy 09/2014 idiopathic per [facility]G lower ext OAB (overactive bladder) Osteoporosis with pathological fracture 2011 per [facility]-2013 MRI thoracic spine DDD -prolia injections -- L1 fx 2016 Other specified glaucoma Psoriasis Thoracic compression fracture (HCC) 1960 horse riding accident- DDD Past Surgical History: Procedure Laterality Date BALLOON ANGIOPLASTY, ARTERY 06/[address] Martinez CARPAL TUNNEL RELEASE Bilateral 1988 CATARACT EXTRACTION Bilateral 12/09 [facility] CHOLECYSTECTOMY 2001 COLONOSCOPY 10/2018 med- neg- ? due COLONOSCOPY 08/2011 chronic diarrhea ([facility]) FOOT SURGERY HIATAL HERNIA REPAIR 10/2011 gastroplexy per Adonis ULNAR TUNNEL RELEASE Right 2003 UPPER GASTROINTESTINAL ENDOSCOPY 09/2011 GERD-uzair ulcer - s/p gastroplexy per Dr. Lamb 11/03 --neg CT abd 03/06 rech 10/07 ([facility]) UPPER GASTROINTESTINAL ENDOSCOPY 10/28/2016 [facility]- esoph stenosis and HH with reflux Social History Tobacco Use Smoking status: Former Packs/day: 0 Types: Cigarettes Quit date: 06/08/1990 Years since quittin.6 Smokeless tobacco: Never Substance Use Topics Alcohol use: No Alcohol/week: 0.0 standard drinks of alcohol Social History Social History Narrative to Sameer since 1983. No Children, 2 stepdtrs (one of ETOHism), NS since 1994, NO ETOH, [employer] retiree in 1995 Family History Family History Problem Relation Name Age of Onset Cancer Mother age 60 ? met bone CA, Heart disease Father age 70 No Known Problems Sister No Known Problems Sister Kalani Diabetes type II Sister COPD Sister meet pulliam Diabetes Sister No Known Problems Sister Shira Liver disease Brother age 50 of ETOH abuse No Known Problems Brother Philip Family Status Relation Name Status Mother at age 60 Bone CA Father at age 70 CAD Sister Sister Kalani Alive Sister Sister meet pulliam Sister Sister Shira Sister Brother at age 50 Brother Philip Alive Family history reviewed as above Review of Systems Constitutional: Negative for fatigue. Respiratory: Negative for shortness of breath. Genitourinary: Positive for frequency (per nursing). Negative for difficulty urinating and dysuria. Psychiatric/Behavioral: Positive for confusion and sleep disturbance. Functional Status Prior to Admission: (I: Independent, A: Assisted, D: Dependent) ADLs I A D Notes Bathing [x] [] [] Dressing [x] [] [] Toileting [x] [] [] Transfers [x] [] [] Feeding [x] [] [] Ambulation [] [x] [] Assistive devices: straight cane IADLs I A D assists Telephone [] [] [] Transportation [] [] [x] Shopping [] [] [x] Meal prep [] [] [x] Housework [] [] [x] Medications [] [x] [] Finances [] [] [x] Objective: BP (!) 158/108 Pulse 96 Temp 36.3 C (97.4 F) (Temporal) Resp 18 Ht 4' 11 (1.499 m) Wt 135 lb (61.2 kg) SpO2 96% BMI 27.27 kg/m No intake or output data in the 24 hours ending 01/19/24 0850 Wt Readings from Last 3 Encounters: 01/17/24 135 lb (61.2 kg) 10/23/23 122 lb (55.3 kg) 07/17/23 121 lb (54.9 kg) Physical Exam Constitutional: General: She is not in acute distress. HENT: Head: Normocephalic. Mouth/Throat: Mouth: Mucous membranes are moist. Cardiovascular: Rate and Rhythm: Normal rate and regular rhythm. Pulmonary: Effort: Pulmonary effort is normal. No respiratory distress. Breath sounds: Normal breath sounds. No wheezing. Abdominal: General: Bowel sounds are normal. There is no distension. Palpations: Abdomen is soft. Tenderness: There is no abdominal tenderness. Musculoskeletal: Right lower leg: No edema. Left lower leg: No edema. Skin: Findings: Bruising (upper arms) present. Neurological: Mental Status: She is alert. Comments: Not following all commands and not answering orientation questions. States I know when told where she is at. Psychiatric: Attention and Perception: She is inattentive. Behavior: Behavior is uncooperative. Cognition and Memory: Cognition is impaired. Comments: Irritated with questions Labs and Imaging: Recent Results (from the past 24 hour(s)) ECG 12 lead Collection Time: 01/18/24 9:22 AM Result Value Ref Range Heart Rate 84 bpm QRSD Interval 80 ms QT Interval 366 ms QTC Interval 433 ms P Heppner 18 degrees QRS Heppner -24 degrees T Wave Heppner 37 degrees DE Interval 176 ms POCT glucose meter Collection Time: 01/18/24 8:31 PM Result Value Ref Range Glucose 88 70 - 100 mg/dL Lab Results Component Value Date TSH 1.283 01/17/2024 No components found for: B12 No results found for: VITD25 Reviewed: active problem list, medication list, allergies, family history, social history, notes from last several encounters, lab results, imaging Follow-up: will follow with you ZUNILDA DIAMOND APRN - SAND OPERATOR 01/19/24 8:50 AM [facility] [id number] Note* Care Coordination - Yessica Kaiser RN - 01/19/2024 8:14 AM EST Images from the original note were not included. Care Management Progress Note Patient remains on 4S for syncope and collapse Clinical updates: Patient is very confused, per SAND OPERATOR note, patient pulled out her IV and was wandering the halls. Geriatrics to see today. Discharge plan: TBD Discharge obstacles: Awaiting clinical stability TCC will continue to follow. Discharge Milestones and Delays Expected Date/Time: 01/21/[address] discharge order Complete med reconciliation Case mgmt discharge readiness Clinical Stability Diagnsotic Workup Expected Discharge History Expected Date/Time Set By Reviewed At 01/21/2024 Yessica Kaiser RN 01/19/2024 8:14 AM Confused- Pulled out IV and wandering halls?? Geriatrics Cons 01/19/2024 Don Wasserman MD 01/16/2024 12:41 PM 01/19/2024 Don Wasserman MD 01/16/2024 11:52 AM Length of Stay (Days): 3 GMLOS: 2.4 [facility] [id number] Note* Care Coordination - Yessica Kaiser RN - 01/19/2024 8:14 AM EST Images from the original note were not included. Care Management Progress Note Patient remains on 4S for syncope and collapse Clinical updates: Patient is very confused, per SAND OPERATOR note, patient pulled out her IV and was wandering the halls. Geriatrics to see today. Discharge plan: TBD Discharge obstacles: Awaiting clinical stability TCC will continue to follow. Discharge Milestones and Delays Expected Date/Time: 01/21/[address] discharge order Complete med reconciliation Case mgmt discharge readiness Clinical Stability Diagnsotic Workup Expected Discharge History Expected Date/Time Set By Reviewed At 01/21/2024 Yessica Kaiser RN 01/19/2024 8:14 AM Confused- Pulled out IV and wandering halls?? Geriatrics Cons 01/19/2024 Don Wasserman MD 01/16/2024 12:41 PM 01/19/2024 Don Wasserman MD 01/16/2024 11:52 AM Length of Stay (Days): 3 GMLOS: 2.4 [id number]* Care Coordination - Gabe Preston RN - 01/18/2024 12:17 PM EST Care Coordination Daily Note/Update Clinical Update: admitted with syncope and a fall. Patient has known history of dementia, and at baseline she is confused and oriented to self. She also presented with nausea. COVID flu and RSV were negative. No evidence of UTI or other infection. Per nursing the patient had an incident yesterday that she was confused disoriented unable to be redirected. She also had increased blood pressures. Geriatrics consulted - awaiting eval for recs. Discharge Plan: TBD Discharge Barriers: establish contact with a patient b2b outside sales representative to complete IA; form safe discharge plan; clinical stability Chart reviewed. Stopped by patient room to see if there were any visitors at the bedside. Patient alone and sleeping soundly. Attempted to phone patient's home number ([phone]) in hopes of getting in touch with spouse, Sameer, but rang with no answer. Phoned patient's sister, Inez Bowman, [phone]. Left HIPAA compliant message requesting call back. Provided TCC's work hours and cellnumber. Need to complete initial assessment - patient has Alzheimer's dementia. Awaiting call back. Received message from bedside RN. She saw previous TCC note and wanted to alert TCC to being at bedside. Before TCC could make it to unit, had to leave. He told bedside RN he will be back around noon tomorrow. TCC will continue to follow. [id number] [facility]* Care Coordination - Gabe Prestno RN - 01/18/2024 12:17 PM EST Care Coordination Daily Note/Update Clinical Update: admitted with syncope and a fall. Patient has known history of dementia, and at baseline she is confused and oriented to self. She also presented with nausea. COVID flu and RSV were negative. No evidence of UTI or other infection. Per nursing the patient had an incident yesterday that she was confused disoriented unable to be redirected. She also had increased blood pressures. Geriatrics consulted - awaiting eval for recs. Discharge Plan: TBD Discharge Barriers: establish contact with a patient b2b outside sales representative to complete IA; form safe discharge plan; clinical stability Chart reviewed. Stopped by patient room to see if there were any visitors at the bedside. Patient alone and sleeping soundly. Attempted to phone patient's home number ([phone]) in hopes of getting in touch with spouse, Sameer, but rang with no answer. Phoned patient's sister, Inez Bowman, [phone]. Left HIPAA compliant message requesting call back. Provided TCC's work hours and cellnumber. Need to complete initial assessment - patient has Alzheimer's dementia. Awaiting call back. Received message from bedside RN. She saw previous TCC note and wanted to alert TCC to being at bedside. Before TCC could make it to unit, had to leave. He told bedside RN he will be back around noon tomorrow. TCC will continue to follow. [facility] [id number] Note* Care Coordination - Gabe Preston RN - 01/17/2024 4:36 PM EST Attempted to call spouse, Sameer, at home number listed for patient ([phone]) - no number available for spouse despite being listed under emergency contacts. Phone rang with no answer and no VMpicked up. Called patient's sister, Inez Bowman, at [phone]. Left HIPAA compliant message requesting call back. Provided TCC's work hours and cell number. Need to complete initial assessment - patient has Alzheimer's dementia. Awaiting call back. Electronically signed by Gabe Preston RN on01/17/2024 at 4:38 PM Have not received call back yet. TCC will continue to follow and attempt patient's sister again tomorrow. [facility] [id number] Note* Care Coordination - Gabe Preston RN - 01/17/2024 4:36 PM EST Attempted to call spouse, Sameer, at home number listed for patient ([phone]) - no number available for spouse despite being listed under emergency contacts. Phone rang with no answer and no VMpicked up. Called patient's sister, Inez Bowman, at [phone]. Left HIPAA compliant message requesting call back. Provided TCC's work hours and cell number. Need to complete initial assessment - patient has Alzheimer's dementia. Awaiting call back. Electronically signed by Gabe Preston RN on01/17/2024 at 4:38 PM Have not received call back yet. TCC will continue to follow and attempt patient's sister again tomorrow. [facility] [id number] History and physical note* Re Padilla MD - 01/16/2024 3:24 PM EST Images from the original note were not included. Attending History and Physical Admit Date: 01/16/2024 PCP: Wayne Conde DO CHIEF COMPLAINT: Fall Reason for Admission: Syncope History Obtained From: patient HISTORY OF PRESENT ILLNESS: Farzana is a 83 y.o. female with past medical history below who presents with chief complaint listedabove. 83-year-old female patient is seen for a syncope and a fall. Patient is a very limited historian because of dementia and her does not hear well and does not have any hearing aids. The historyis obtained from partially from EMR and also from her at the bedside, Reportedly she was going into the bathroom and the heard a loud noise and states that she was briefly unconscious. Patient does not remember any details. She did have a history of stroke and ever since then she had problems with memory loss/dementia. claims that she did not have anyfevers chills or any cough or congestion prior to the syncopal episode Denies chest pain, sob, abdominal pain, nausea, vomiting, diarrhea, constipation, fevers, or chills. Will admit for further evaluation and management. Past Medical History: Past Medical History: Diagnosis Date Alzheimer's disease, unspecified (CODE) ([facility]) 01/2021 Anxiety CAD (coronary artery disease) 06/2016 Dr. Martinez- AL-hypokinetic RV- RCA ballon angioplasty- EF 48% 08/10- Dr Gianna Garrett ulcer 2011 Carotid artery disease without cerebral infarction ([facility]) 09/2015 angiogram with <70 % stenosis Left ICA- defers repeat studies Collagenous colitis [address] Teague COPD (chronic obstructive pulmonary disease) ([facility]) 04/2017 ex smoker since 1994--CT also 12/11 Essential hypertension 09/26/2021 GERD (gastroesophageal reflux disease) 2010 med-EGD 10/07 and 11/08 H/O colonoscopy 10/2018 med- divert ds- no changes, ? repeat nec H/O: UGI bleed 10/2016 severe esophagitis History of DVT of lower extremity 10/2016 IVC filter History of hypertension 1999 off rx since 04/09 History of myocardial infarction 06/2016 LVEF 48 % History of rhabdomyolysis 07/2017 UGI bleed and Hypotension with CHF Hypercholesterolemia IBS (irritable bowel syndrome) with diarrhea LV dysfunction 07/2017 EF 48 % Neuropathy 09/2014 idiopathic per [facility] lower ext OAB (overactive bladder) Osteoporosis with pathological fracture 2011 per [facility]-2013 MRI thoracic spine DDD -prolia injections -- L1 fx 2017 Other specified glaucoma Psoriasis Thoracic compression fracture (HCC) 1960 horse riding accident- DDD Past Surgical History: Past Surgical History: Procedure Laterality Date BALLOON ANGIOPLASTY, ARTERY 06/[address] Martinez CARPAL TUNNEL RELEASE Bilateral 1987 CATARACT EXTRACTION Bilateral 12/09 [facility] CHOLECYSTECTOMY 2002 COLONOSCOPY 10/2018 Ahmed- neg- ? due COLONOSCOPY 08/2011 chronic diarrhea (Ahmed) FOOT SURGERY HIATAL HERNIA REPAIR 10/2011 gastroplexy per Adonis ULNAR TUNNEL RELEASE Right 2003 UPPER GASTROINTESTINAL ENDOSCOPY 09/2011 GERD-uzair ulcer - s/p gastroplexy per Dr. Lamb 11/03 --neg CT abd 03/06 rech 10/07 (Ahmed) UPPER GASTROINTESTINAL ENDOSCOPY 10/28/2016 ahmed- esoph stenosis and HH with reflux Social History: Social History Socioeconomic History Marital status: Spouse name: Not on file Number of children: Not on file Years of education: Not on file Highest education level: Not on file Occupational History Not on file Tobacco Use Smoking status: Former Packs/day: 0 Types: Cigarettes Quit date: 06/08/1990 Years since quittin.6 Smokeless tobacco: Never Substance and Sexual Activity Alcohol use: No Alcohol/week: 0.0 standard drinks of alcohol Drug use: No Sexual activity: Not on file Other Topics Concern Not on file Social History Narrative to Sameer since 1983. No Children, 2 stepdtrs (one of ETOHism), NS since 1994, NO ETOH, [employer] retiree in 1995 Social Determinants of Health Financial Resource Strain: Not on file Food Insecurity: Not on file Transportation Needs: Not on file Physical Activity: Not on file Stress: Not on file Social Connections: Not on file Intimate Partner Violence: Not on file Housing Stability: Not on file Family History: Family History Problem Relation Name Age of Onset Cancer Mother age 60 ? met bone CA, Heart disease Father age 70 No Known Problems Sister No Known Problems Sister Kalani Diabetes type II Sister COPD Sister meet pulliam Diabetes Sister No Known Problems Sister Shira Liver disease Brother age 50 of ETOH abuse No Known Problems Brother Philip Medications Prior to Admission: No current facility-administered medications on file prior to encounter. Current Outpatient Medications on File Prior to Encounter Medication Sig Dispense Refill acetaminophen (Tylenol) 325 MG tablet Take 650 mg by mouth. albuterol 108 (90 Base) MCG/ACT inhaler Inhale 2 puffs every 6 hours as needed for wheezing or shortness of breath. 18 g 5 Aspirin Low Dose 81 MG EC tablet TAKE 1 TABLET BY MOUTH EVERY MORNING 31 tablet 11 atorvastatin (Lipitor) 10 MG tablet Take 1 tablet (10 mg) by mouth Nightly for 180 doses. 90 tablet1 Calcium Carb-Cholecalciferol (Oyster Shell Calcium w/D) 500-5 MG-MCG tablet Take 2 tablets by mouthevery morning (before breakfast). 60 tablet 11 Calcium Carbonate-Vitamin D (calcium-vitamin D) 500-200 MG-UNIT tablet TAKE 2 TABLETS BY MOUTH EVERY MORNING (BEFORE BREAKFAST) clopidogrel (Plavix) 75 MG tablet TAKE ONE TABLET AT 5PM 90 tablet 1 donepezil (Aricept) 5 MG tablet Take 1 tablet (5 mg) by mouth Nightly. 90 tablet 1 ergocalciferol (Vitamin D2) 1.25 MG (93097 UT) capsule TAKE 1 CAPSULE BY MOUTH ONE TIME PER WEEK 12capsule 3 fluticasone (Flovent) 220 MCG/ACT inhaler Inhale 2 puffs 2 times daily. 12 g 5 gabapentin (Neurontin) 300 MG capsule TAKE 1 CAPSULE BY MOUTH TWICE DAILY 62 capsule 2 guaiFENesin (Mucus Relief) 600 MG 12 hr tablet TAKE 2 TABLETS BY MOUTH TWICE DAILY 60 tablet 11 isosorbide mononitrate ER (Imdur) 60 MG 24 hr tablet Take 1 tablet (60 mg) by mouth every morning. 90 tablet 1 levothyroxine (Synthroid, Levoxyl) 50 MCG tablet Take 1 tablet (50 mcg) by mouth every morning for 180 doses. 90 tablet 1 loratadine (Claritin) 10 MG tablet TAKE 1 TABLET BY MOUTH EVERY MORNING 30 tablet 11 metoprolol succinate XL (Toprol-XL) 50 MG 24 hr tablet Increase to 50 mg q day 90 tablet 1 mirtazapine (Remeron) 7.5 MG tablet Decrease to 7.5 mg at HS 90 tablet 1 omega-3 (Fish Oil) 1000 MG capsule TAKE THREE CAPSULES IN THE MORNING 90 capsule 11 pantoprazole (ProtoNix) 40 MG EC tablet CHANGE TO ONE EACH EVENING BEFORE BEDTIME 90 tablet 1 Spiriva HandiHaler [address] 1 capsule (18 mcg) into inhaler and inhale daily. 30 capsule 5 [] sucralfate (Carafate) 1 g tablet Take 1 tablet (1 g) by mouth 4 times daily (before mealsand nightly). 360 tablet 1 Allergies: Allergies Allergen Reactions Codeine Other reaction(s): GI Upset Per patient - unknown reaction Other reaction(s): Blisters REVIEW OF SYSTEMS: Constitutional: Negative for fever, chills, or for activity change HEENT: Negative for congestion, postnasal drip and sneezing. Eyes: Negative for itching and visual disturbance. Respiratory: Negative for apnea, cough, choking, chest tightness, shortness of breath, wheezing andstridor. Cardiovascular: Negative for chest pain. Gastrointestinal: Negative for nausea, vomiting, abdominal pain, diarrhea and blood in stool. Genitourinary: Negative for dysuria, frequency and flank pain. Musculoskeletal: Negative for myalgias and joint swelling. Positive for gait disturbance Skin: Negative for rash. Neurological: Positive for syncope, negative for dizziness , positive for weakness , negative for numbness and headaches. Vitals: BP 129/88 (BP Location: Right arm, Patient Position: Lying) Pulse 83 Temp 36.2 C (97.2 F) (Temporal) Resp 16 Wt 135 lb 8 oz (61.5 kg) SpO2 94% BMI 27.37 kg/m BMI Classification: Morbidly Obese (>40.0) Pulse Ox: SpO2 Av.3 % Min: 94 % Max: 99 % Supplemental O2: PHYSICAL EXAM: General appearance: Appears to be upset and agitated, appears stated age and cooperative with exam. HEENT: Normal cephalic, atraumatic without obvious deformity. Pupils equal, round, and reactive to light. Extra ocular muscles intact. Conjunctivae/corneas clear. Neck: No jugular venous distention. \ Respiratory: Diminished breath sounds, bilaterally without Rales/Wheezes/Rhonchi. Cardiovascular: Regular rate and rhythm with normal S1/S2 without murmurs, rubs or gallops. Abdomen: Soft, non-tender, non-distended with normal bowel sounds. No rebound or guarding. Musculoskeletal: No clubbing, cyanosis or edema bilaterally. Full range of motion without deformity, +2 peripheral pulses in all extremities. Skin: Skin color, texture, turgor normal. No rashes or lesions. Neurologic: Neurovascularly intact without any focal sensory/motor deficits. , grossly non-focal. Psychiatric: Only oriented to time and person, poor insight DATA: CBC: Recent Labs 01/16/24 0842 WBC 6.4 RBC 4.45 HGB 12.3 HCT 37.9 MCV 85.1 RDW 14.6* PLT 258 BMP: Recent Labs 01/16/24 0842 NA 137 K 3.4* CL 103 CO2 25 BUN 13 CREATININE 0.89 GLUCOSE 134* CALCIUM 8.7 ANIONGAP 9 LIVER PROFILE: Recent Labs 01/16/24 0842 AST 23 ALT 16 BILITOT 0.7 ALKPHOS 117 PROT 6.5 PT/INR: No results for input(s): PROTIME, INR in the last 72 hours. CARDIAC ENZYMES: Recent Labs 01/16/24 0842 01/16/24 1148 TROPONINI <0.012 <0.012 Procalcitonin: No results found for: PROCAL Urine Culture: No results found for this or any previous visit. COVID-19 PCR: No results for input(s): COVID19 in the last 72 hours. I reviewed: [x] laboratory results [x] radiographic results At the time of today's encounter. Pt was advised of the results. IMPRESSION: Syncope and fall Chronic systolic heart failure Hypokalemia-m replace potassium Alzeihmers disease Spiculated lung nodule- pulm consult, might need CT guided biopsy , claims she is a full code, Proximal colitis- Gi consult Hypothyroidism- continue levothyroxine COPD- prn albuterol Hypertension- Medical Decision Making: -83-year-old female patient is admitted with syncope and fall. History is limited because of 's deafness and patient's dementia. They both reiterate that she is a full code. ED evaluation included a CT of the chest which showed a spiculated lung nodule. Discussed with patient and extensively that it might need a CT-guided biopsy to rule out malignancy. Will ask pulmonology to see facilitate lung nodule biopsy and geriatrics to see to facilitate discharge planning.She was a ex-smoker for more than 20 to 30 years Upon discussion with patient and his she remains a full code Colitis?? NO GI symptoms ... Might need a GI consult?? She denies abdominal pain , diarrhea etc , will monitor Discussed with ER physician and agree to inpatient admission Check 2D echo, telemetry, cycle troponins. -PT/OT eval/increase activity -am labs, replace lytes prn -vitals per routine -home meds as ordered -DVT prophylaxis: [x] Lovenox [] Heparin [] SCDs [x] Encourage ambulation [] Already on Anticoagulation Anticipated Discharge - Date - 01/19/2024 - Location - Home with Home Health Care - Pending the following - Improvement ad workup of right lung nodule and syncope Total time spent (which include face to face and non face to face encounters) : minutes Toxic drug monitoring/narrow therapeutic index drug monitoring : # Drug name : # Route administered : # Method of monitoring : Extended Emergency Contact Information Primary Emergency Contact: Inez Bowman Relation: Sibling Code status: Full Code -see below for additional orders, further recommendations to follow Orders Placed This Encounter Procedures COVID-19, Flu A/B, and RSV Combo CT head wo IV contrast CT cervical spine wo IV contrast CT abdomen pelvis w contrast XR chest [address] chest wo IV contrast Comprehensive metabolic panel Lipase Troponin, with Serial Reflex CK Urinalysis complete with reflex to Culture Lactic acid with reflex Complete Urinalysis CBC auto differential Troponin I Troponin I Basic Metabolic Panel w/ Mg Reflex CBC auto differential Adult diet Regular Orthostatic Blood Pressure and Pulse Vital Signs Notify patient's primary care provider of admission Neurovascular checks Activity Up With Assistance Telemetry monitoring for Syncope Full code Respiratory Consult for Lung Nodule Initiate Oxygen Therapy Protocol ECG 12 lead Transthoracic echocardiogram (TTE) complete with contrast, bubble, strain, and 3D PRN Insert peripheral IV Admit to inpatient Seizure precautions Fall precautions Please forward a copy of this H&P to the patient's PCP. Thank you. [facility]02-23-2024 History and physical note* Re Padilla MD - 01/16/2024 3:24 PM EST Images from the original note were not included. Attending History and Physical Admit Date: 01/16/2024 PCP: Wayne Conde DO CHIEF COMPLAINT: Fall Reason for Admission: Syncope History Obtained From: patient HISTORY OF PRESENT ILLNESS: Farzana is a 83 y.o. female with past medical history below who presents with chief complaint listedabove. 83-year-old female patient is seen for a syncope and a fall. Patient is a very limited historian because of dementia and her does not hear well and does not have any hearing aids. The historyis obtained from partially from EMR and also from her at the bedside, Reportedly she was going into the bathroom and the heard a loud noise and states that she was briefly unconscious. Patient does not remember any details. She did have a history of stroke and ever since then she had problems with memory loss/dementia. claims that she did not have anyfevers chills or any cough or congestion prior to the syncopal episode Denies chest pain, sob, abdominal pain, nausea, vomiting, diarrhea, constipation, fevers, or chills. Will admit for further evaluation and management. Past Medical History: Past Medical History: Diagnosis Date Alzheimer's disease, unspecified (CODE) ([facility]) 01/2021 Anxiety CAD (coronary artery disease) 06/2016 Dr. Martinez- AL-hypokinetic RV- RCA ballon angioplasty- EF 48% 08/10- Dr Gianna Garrett ulcer 2011 Carotid artery disease without cerebral infarction ([facility]) 09/2015 angiogram with <70 % stenosis Left ICA- defers repeat studies Collagenous colitis [address] Teague COPD (chronic obstructive pulmonary disease) ([facility]) 04/2017 ex smoker since 1994--CT also 12/11 Essential hypertension 09/26/2021 GERD (gastroesophageal reflux disease) 2010 Zahida-EGD 10/07 and 11/08 H/O colonoscopy 10/2018 mattie- divert ds- no changes, ? repeat nec H/O: UGI bleed 10/2016 severe esophagitis History of DVT of lower extremity 10/2016 IVC filter History of hypertension 1999 off rx since 04/09 History of myocardial infarction 06/2016 LVEF 48 % History of rhabdomyolysis 07/2017 UGI bleed and Hypotension with CHF Hypercholesterolemia IBS (irritable bowel syndrome) with diarrhea LV dysfunction 07/2017 EF 48 % Neuropathy 09/2014 idiopathic per [facility] lower ext OAB (overactive bladder) Osteoporosis with pathological fracture 2011 per [facility]-2013 MRI thoracic spine DDD -prolia injections -- L1 fx 2016 Other specified glaucoma Psoriasis Thoracic compression fracture (HCC) 1960 horse riding accident- DDD Past Surgical History: Past Surgical History: Procedure Laterality Date BALLOON ANGIOPLASTY, ARTERY 06/[address] Martinez CARPAL TUNNEL RELEASE Bilateral 1987 CATARACT EXTRACTION Bilateral 12/09 [facility]I CHOLECYSTECTOMY 2002 COLONOSCOPY 10/2018 Ahmed- neg- ? due COLONOSCOPY 08/2011 chronic diarrhea (Ahmed) FOOT SURGERY HIATAL HERNIA REPAIR 10/2011 gastroplexy per Adonis ULNAR TUNNEL RELEASE Right 2003 UPPER GASTROINTESTINAL ENDOSCOPY 09/2011 GERD-uzair ulcer - s/p gastroplexy per Dr. Lamb 11/03 --neg CT abd 03/06 rech 10/07 (Ahmed) UPPER GASTROINTESTINAL ENDOSCOPY 10/28/2016 ahmed- esoph stenosis and HH with reflux Social History: Social History Socioeconomic History Marital status: Spouse name: Not on file Number of children: Not on file Years of education: Not on file Highest education level: Not on file Occupational History Not on file Tobacco Use Smoking status: Former Packs/day: 0 Types: Cigarettes Quit date: 06/08/1990 Years since quittin.6 Smokeless tobacco: Never Substance and Sexual Activity Alcohol use: No Alcohol/week: 0.0 standard drinks of alcohol Drug use: No Sexual activity: Not on file Other Topics Concern Not on file Social History Narrative to Sameer since 1983. No Children, 2 stepdtrs (one of ETOHism), NS since 1994, NO ETOH, [employer] retiree in 1995 Social Determinants of Health Financial Resource Strain: Not on file Food Insecurity: Not on file Transportation Needs: Not on file Physical Activity: Not on file Stress: Not on file Social Connections: Not on file Intimate Partner Violence: Not on file Housing Stability: Not on file Family History: Family History Problem Relation Name Age of Onset Cancer Mother age 60 ? met bone CA, Heart disease Father age 70 No Known Problems Sister No Known Problems Sister Kalani Diabetes type II Sister COPD Sister meet heraclio Diabetes Sister No Known Problems Sister Shira Liver disease Brother age 50 of ETOH abuse No Known Problems Brother Philip Medications Prior to Admission: No current facility-administered medications on file prior to encounter. Current Outpatient Medications on File Prior to Encounter Medication Sig Dispense Refill acetaminophen (Tylenol) 325 MG tablet Take 650 mg by mouth. albuterol 108 (90 Base) MCG/ACT inhaler Inhale 2 puffs every 6 hours as needed for wheezing or shortness of breath. 18 g 5 Aspirin Low Dose 81 MG EC tablet TAKE 1 TABLET BY MOUTH EVERY MORNING 31 tablet 11 atorvastatin (Lipitor) 10 MG tablet Take 1 tablet (10 mg) by mouth Nightly for 180 doses. 90 tablet1 Calcium Carb-Cholecalciferol (Oyster Shell Calcium w/D) 500-5 MG-MCG tablet Take 2 tablets by mouthevery morning (before breakfast). 60 tablet 11 Calcium Carbonate-Vitamin D (calcium-vitamin D) 500-200 MG-UNIT tablet TAKE 2 TABLETS BY MOUTH EVERY MORNING (BEFORE BREAKFAST) clopidogrel (Plavix) 75 MG tablet TAKE ONE TABLET AT 5PM 90 tablet 1 donepezil (Aricept) 5 MG tablet Take 1 tablet (5 mg) by mouth Nightly. 90 tablet 1 ergocalciferol (Vitamin D2) 1.25 MG (96996 UT) capsule TAKE 1 CAPSULE BY MOUTH ONE TIME PER WEEK 12capsule 3 fluticasone (Flovent) 220 MCG/ACT inhaler Inhale 2 puffs 2 times daily. 12 g 5 gabapentin (Neurontin) 300 MG capsule TAKE 1 CAPSULE BY MOUTH TWICE DAILY 62 capsule 2 guaiFENesin (Mucus Relief) 600 MG 12 hr tablet TAKE 2 TABLETS BY MOUTH TWICE DAILY 60 tablet 11 isosorbide mononitrate ER (Imdur) 60 MG 24 hr tablet Take 1 tablet (60 mg) by mouth every morning. 90 tablet 1 levothyroxine (Synthroid, Levoxyl) 50 MCG tablet Take 1 tablet (50 mcg) by mouth every morning for 180 doses. 90 tablet 1 loratadine (Claritin) 10 MG tablet TAKE 1 TABLET BY MOUTH EVERY MORNING 30 tablet 11 metoprolol succinate XL (Toprol-XL) 50 MG 24 hr tablet Increase to 50 mg q day 90 tablet 1 mirtazapine (Remeron) 7.5 MG tablet Decrease to 7.5 mg at HS 90 tablet 1 omega-3 (Fish Oil) 1000 MG capsule TAKE THREE CAPSULES IN THE MORNING 90 capsule 11 pantoprazole (ProtoNix) 40 MG EC tablet CHANGE TO ONE EACH EVENING BEFORE BEDTIME 90 tablet 1 Spiriva HandiHaler [address] 1 capsule (18 mcg) into inhaler and inhale daily. 30 capsule 5 [] sucralfate (Carafate) 1 g tablet Take 1 tablet (1 g) by mouth 4 times daily (before mealsand nightly). 360 tablet 1 Allergies: Allergies Allergen Reactions Codeine Other reaction(s): GI Upset Per patient - unknown reaction Other reaction(s): Blisters REVIEW OF SYSTEMS: Constitutional: Negative for fever, chills, or for activity change HEENT: Negative for congestion, postnasal drip and sneezing. Eyes: Negative for itching and visual disturbance. Respiratory: Negative for apnea, cough, choking, chest tightness, shortness of breath, wheezing andstridor. Cardiovascular: Negative for chest pain. Gastrointestinal: Negative for nausea, vomiting, abdominal pain, diarrhea and blood in stool. Genitourinary: Negative for dysuria, frequency and flank pain. Musculoskeletal: Negative for myalgias and joint swelling. Positive for gait disturbance Skin: Negative for rash. Neurological: Positive for syncope, negative for dizziness , positive for weakness , negative for numbness and headaches. Vitals: BP 129/88 (BP Location: Right arm, Patient Position: Lying) Pulse 83 Temp 36.2 C (97.2 F) (Temporal) Resp 16 Wt 135 lb 8 oz (61.5 kg) SpO2 94% BMI 27.37 kg/m BMI Classification: Morbidly Obese (>40.0) Pulse Ox: SpO2 Av.3 % Min: 94 % Max: 99 % Supplemental O2: PHYSICAL EXAM: General appearance: Appears to be upset and agitated, appears stated age and cooperative with exam. HEENT: Normal cephalic, atraumatic without obvious deformity. Pupils equal, round, and reactive to light. Extra ocular muscles intact. Conjunctivae/corneas clear. Neck: No jugular venous distention. \ Respiratory: Diminished breath sounds, bilaterally without Rales/Wheezes/Rhonchi. Cardiovascular: Regular rate and rhythm with normal S1/S2 without murmurs, rubs or gallops. Abdomen: Soft, non-tender, non-distended with normal bowel sounds. No rebound or guarding. Musculoskeletal: No clubbing, cyanosis or edema bilaterally. Full range of motion without deformity, +2 peripheral pulses in all extremities. Skin: Skin color, texture, turgor normal. No rashes or lesions. Neurologic: Neurovascularly intact without any focal sensory/motor deficits. , grossly non-focal. Psychiatric: Only oriented to time and person, poor insight DATA: CBC: Recent Labs 01/16/24 0842 WBC 6.4 RBC 4.45 HGB 12.3 HCT 37.9 MCV 85.1 RDW 14.6* PLT 258 BMP: Recent Labs 01/16/24 0842 NA 137 K 3.4* CL 103 CO2 25 BUN 13 CREATININE 0.89 GLUCOSE 134* CALCIUM 8.7 ANIONGAP 9 LIVER PROFILE: Recent Labs 01/16/24 0842 AST 23 ALT 16 BILITOT 0.7 ALKPHOS 117 PROT 6.5 PT/INR: No results for input(s): PROTIME, INR in the last 72 hours. CARDIAC ENZYMES: Recent Labs 01/16/24 0842 01/16/24 1148 TROPONINI <0.012 <0.012 Procalcitonin: No results found for: PROCAL Urine Culture: No results found for this or any previous visit. COVID-19 PCR: No results for input(s): COVID19 in the last 72 hours. I reviewed: [x] laboratory results [x] radiographic results At the time of today's encounter. Pt was advised of the results. IMPRESSION: Syncope and fall Chronic systolic heart failure Hypokalemia-m replace potassium Alzeihmers disease Spiculated lung nodule- pulm consult, might need CT guided biopsy , claims she is a full code, Proximal colitis- Gi consult Hypothyroidism- continue levothyroxine COPD- prn albuterol Hypertension- Medical Decision Making: -83-year-old female patient is admitted with syncope and fall. History is limited because of 's deafness and patient's dementia. They both reiterate that she is a full code. ED evaluation included a CT of the chest which showed a spiculated lung nodule. Discussed with patient and extensively that it might need a CT-guided biopsy to rule out malignancy. Will ask pulmonology to see facilitate lung nodule biopsy and geriatrics to see to facilitate discharge planning.She was a ex-smoker for more than 20 to 30 years Upon discussion with patient and his she remains a full code Colitis?? NO GI symptoms ... Might need a GI consult?? She denies abdominal pain , diarrhea etc , will monitor Discussed with ER physician and agree to inpatient admission Check 2D echo, telemetry, cycle troponins. -PT/OT eval/increase activity -am labs, replace lytes prn -vitals per routine -home meds as ordered -DVT prophylaxis: [x] Lovenox [] Heparin [] SCDs [x] Encourage ambulation [] Already on Anticoagulation Anticipated Discharge - Date - 01/19/2024 - Location - Home with Home Health Care - Pending the following - Improvement ad workup of right lung nodule and syncope Total time spent (which include face to face and non face to face encounters) : minutes Toxic drug monitoring/narrow therapeutic index drug monitoring : # Drug name : # Route administered : # Method of monitoring : Extended Emergency Contact Information Primary Emergency Contact: Inez Bowman Relation: Sibling Code status: Full Code -see below for additional orders, further recommendations to follow Orders Placed This Encounter Procedures COVID-19, Flu A/B, and RSV Combo CT head wo IV contrast CT cervical spine wo IV contrast CT abdomen pelvis w contrast XR chest [address] chest wo IV contrast Comprehensive metabolic panel Lipase Troponin, with Serial Reflex CK Urinalysis complete with reflex to Culture Lactic acid with reflex Complete Urinalysis CBC auto differential Troponin I Troponin I Basic Metabolic Panel w/ Mg Reflex CBC auto differential Adult diet Regular Orthostatic Blood Pressure and Pulse Vital Signs Notify patient's primary care provider of admission Neurovascular checks Activity Up With Assistance Telemetry monitoring for Syncope Full code Respiratory Consult for Lung Nodule Initiate Oxygen Therapy Protocol ECG 12 lead Transthoracic echocardiogram (TTE) complete with contrast, bubble, strain, and 3D PRN Insert peripheral IV Admit to inpatient Seizure precautions Fall precautions Please forward a copy of this H&P to the patient's PCP. Thank you. documented in this [id number] Note* Care Coordination - Cherelle Larson RCP - 01/16/2024 2:01 PM EST Navigators received request from ED providers to assist with navigation after a CT chest 01/16/2024 identified a 2.5 x 1.8 cm left apical spiculated lung nodule and other smaller lung nodules up to 5 mm in left lower lung. Per EMR review, patient is a former smoker quit in 1989 and has a family history of cancer in her mom. She has issues with dementia/Alzheimer's and assists with providing history. Navigator will monitor inpatient progress and provider notes during hospitalization for fall. Will await possible inpatient pulmonary consult or assist with follow-up through the lung nodule clinic at discharge. [facility] [id number] Note* Care Coordination - Cherelle Larson RCP - 01/16/2024 2:01 PM EST Navigators received request from ED providers to assist with navigation after a CT chest 01/16/2024 identified a 2.5 x 1.8 cm left apical spiculated lung nodule and other smaller lung nodules up to 5 mm in left lower lung. Per EMR review, patient is a former smoker quit in 1989 and has a family history of cancer in her mom. She has issues with dementia/Alzheimer's and assists with providing history. Navigator will monitor inpatient progress and provider notes during hospitalization for fall. Will await possible inpatient pulmonary consult or assist with follow-up through the lung nodule clinic at discharge. [facility] [id number] Note 1. Spiculated 2.5 x 1.8 cm nodule at the left lung apex. Further evaluation with PET/CT or tissue sampling is recommended. 2. Additional 0.5 cm and 0.4 cm nodules within the left lower lobe 3. Mild emphysema and fibrotic changes. 4. Moderate hiatal hernia. CRITICAL TEST COMMUNICATION: Dr. Wasserman was notified via [employer] Secure Chat today at 10:47 AM. 2017 - UPDATED [employer] GUIDELINES FOR MANAGEMENT OF SMALL PULMONARY NODULES DETECTED ON CT Note: Recommendations do not apply for lung cancer screening, patients with immunosuppression or with known cancer. Dimensions are average of long and short axis rounded to the millimeter SOLITARY NODULE: LOW RISK PATIENT <6mm - No follow up 6-8mm - 6-12 months, then consider 18-24 months >8mm - PET/CT, Bx or followup in 3 months SOLITARY NODULE: HIGH RISK PATIENT <6mm - Optional 6-12 months (suspicious morphology or upper lobe) 6-8mm - 6-12 months, then 18-24 months >8mm - PET/CT, Bx or followup in 3 months MULTIPLE NODULES: LOW RISK PATIENT (Use most suspicious nodule to manage guidelines) All <6mm - No follow up Any >6mm - 3-6 months, then consider 18-24 months MULTIPLE NODULES: HIGH RISK PATIENT (Use most suspicious nodule to manage guidelines) All <6mm - No follow up Any >6mm - 3-6 months, then 18-24 months SUBSOLID NODULE: SINGLE GROUND GLASS OPACITY <6mm - No follow up 6mm or greater - 6-12 months, then every 2 years until 5 years SUBSOLID NODULE: PART SOLID <6mm - No follow up 6mm or greater - 3-6 months, then if solid component <6mm and unchanged every year until 5 years MULTIPLE SUBSOLID NODULES: All <6mm - 3-6 months, then if stable 24 and 48 months 6mm or greater - 3-6 months, subsequent management based upon most suspicious nodule Report Dictated on Electronically Signed By: Leonel Rubio MD Electronically Signed Date/Time: 01/16/2024 10:47 AM EST [facility] [id number] Emergency department Note* Don Wasserman MD - 01/16/2024 8:17 AM EST [facility] ED EMERGENCY DEPARTMENT ENCOUNTER Pt Name: Farzana Herron Birthdate 1940 Date of evaluation: 01/16/2024 Provider: Don Wasserman MD CHIEF COMPLAINT Chief Complaint Patient presents with Fall Pt comes to the Ed today due to having a fall at home pt states she does not remember the incident pt does not know the year however can state current month and is alert to person and place. Vomiting Fall HISTORY OF PRESENT ILLNESS (Location/Symptom, Timing/Onset,Context/Setting, Quality, Duration, Modifying Factors, Severity) Note limiting factors. Farzana Herron is a 83 y.o. female who presents to the emergency department with fall. Patient islimited historian she does remember what happened although she is nauseated. Brought in via squad. I spoke to her and he explained that this morning she was going to the bathroom and heard a loud noise and she had fallen. He did states she was briefly unconscious. She does have a history ofstroke remotely and ever since then she has had problems with dementia. She baseline has baseline dementia and confusion. She has not been recently sick or ill. He says she do normally does not walk well. She has not been complaining of being sick or ill. HPI Historian is from the patient but very limited due to her Alzheimer's. I did have extensive discussion with the as described above. Nurse's notes for past medical history, surgical history, social history were reviewed. Medicationsand allergies reviewed. PAST MEDICAL HISTORY Past Medical History: Diagnosis Date Alzheimer's disease, unspecified (CODE) ([facility]) 01/2021 Anxiety CAD (coronary artery disease) 06/2016 Dr. Martinez- AL-hypokinetic RV- RCA ballon angioplasty- EF 48% 08/10- Dr Gianna Garrett ulcer 2011 Carotid artery disease without cerebral infarction ([facility]) 09/2015 angiogram with <70 % stenosis Left ICA- defers repeat studies Collagenous colitis [address] Teague COPD (chronic obstructive pulmonary disease) ([facility]) 04/2017 ex smoker since 1994--CT also 12/11 Essential hypertension 09/26/2021 GERD (gastroesophageal reflux disease) 2010 [facility]-EGD 10/07 and 11/08 H/O colonoscopy 10/2018 [facility]- divert ds- no changes, ? repeat nec H/O: UGI bleed 10/2016 severe esophagitis History of DVT of lower extremity 10/2016 IVC filter History of hypertension 1999 off rx since 04/09 History of myocardial infarction 06/2016 LVEF 48 % History of rhabdomyolysis 07/2017 UGI bleed and Hypotension with CHF Hypercholesterolemia IBS (irritable bowel syndrome) with diarrhea LV dysfunction 07/2017 EF 48 % Neuropathy 09/2014 idiopathic per [facility]G lower ext OAB (overactive bladder) Osteoporosis with pathological fracture 2011 per [facility]-2013 MRI thoracic spine DDD -prolia injections -- L1 fx 2017 Other specified glaucoma Psoriasis Thoracic compression fracture ([facility]) 1960 horse riding accident- DDD SURGICALHISTORY Past Surgical History: Procedure Laterality Date BALLOON ANGIOPLASTY, ARTERY 06/[address] Martinez CARPAL TUNNEL RELEASE Bilateral 1987 CATARACT EXTRACTION Bilateral 12/09 [facility] CHOLECYSTECTOMY 2001 COLONOSCOPY 10/2018 [facility]- neg- ? due COLONOSCOPY 08/2011 chronic diarrhea ([facility]) FOOT SURGERY HIATAL HERNIA REPAIR 10/2011 gastroplexy per Adonis ULNAR TUNNEL RELEASE Right 2003 UPPER GASTROINTESTINAL ENDOSCOPY 09/2011 GERD-uzair ulcer - s/p gastroplexy per Dr. Lamb 11/03 --neg CT abd 03/06 rech 10/07 ([facility]) UPPER GASTROINTESTINAL ENDOSCOPY 10/28/2016 [facility]- esoph stenosis and HH with reflux CURRENT MEDICATIONS Previous Medications ACETAMINOPHEN (TYLENOL) 325 MG TABLET Take 650 mg by mouth. ALBUTEROL 108 (90 BASE) MCG/ACT INHALER Inhale 2 puffs every 6 hours as needed for wheezing or shortness of breath. ASPIRIN LOW DOSE 81 MG EC TABLET TAKE 1 TABLET BY MOUTH EVERY MORNING ATORVASTATIN (LIPITOR) 10 MG TABLET Take 1 tablet (10 mg) by mouth Nightly for 180 doses. CALCIUM CARB-CHOLECALCIFEROL (OYSTER SHELL CALCIUM W/D) 500-5 MG-MCG TABLET Take 2 tablets by mouthevery morning (before breakfast). CALCIUM CARBONATE-VITAMIN D (CALCIUM-VITAMIN D) 500-200 MG-UNIT TABLET TAKE 2 TABLETS BY MOUTH EVERY MORNING (BEFORE BREAKFAST) CLOPIDOGREL (PLAVIX) 75 MG TABLET TAKE ONE TABLET AT 5PM DONEPEZIL (ARICEPT) 5 MG TABLET Take 1 tablet (5 mg) by mouth Nightly. ERGOCALCIFEROL (VITAMIN D2) 1.25 MG (33380 UT) CAPSULE TAKE 1 CAPSULE BY MOUTH ONE TIME PER WEEK FLUTICASONE (FLOVENT) 220 MCG/ACT INHALER Inhale 2 puffs 2 times daily. GABAPENTIN (NEURONTIN) 300 MG CAPSULE TAKE 1 CAPSULE BY MOUTH TWICE DAILY GUAIFENESIN (MUCUS RELIEF) 600 MG 12 HR TABLET TAKE 2 TABLETS BY MOUTH TWICE DAILY ISOSORBIDE MONONITRATE ER (IMDUR) 60 MG 24 HR TABLET Take 1 tablet (60 mg) by mouth every morning. LEVOTHYROXINE (SYNTHROID, LEVOXYL) 50 MCG TABLET Take 1 tablet (50 mcg) by mouth every morning for 180 doses. LORATADINE (CLARITIN) 10 MG TABLET TAKE 1 TABLET BY MOUTH EVERY MORNING METOPROLOL SUCCINATE XL (TOPROL-XL) 50 MG 24 HR TABLET Increase to 50 mg q day MIRTAZAPINE (REMERON) 7.5 MG TABLET Decrease to 7.5 mg at HS OMEGA-3 (FISH OIL) 1000 MG CAPSULE TAKE THREE CAPSULES IN THE MORNING PANTOPRAZOLE (PROTONIX) 40 MG EC TABLET CHANGE TO ONE EACH EVENING BEFORE BEDTIME SPIRIVA HANDIHALER [address] 1 capsule (18 mcg) into inhaler and inhale daily. Codeine FAMILY HISTORY Family History Problem Relation Name Age of Onset Cancer Mother age 60 ? met bone CA, Heart disease Father age 70 No Known Problems Sister No Known Problems Sister Kalani Diabetes type II Sister COPD Sister meet pulliam Diabetes Sister No Known Problems Sister Shira Liver disease Brother age 50 of ETOH abuse No Known Problems Brother Philip SOCIAL HISTORY Social History Socioeconomic History Marital status: Tobacco Use Smoking status: Former Packs/day: 0 Types: Cigarettes Quit date: 06/08/1990 Years since quittin.6 Smokeless tobacco: Never Substance and Sexual Activity Alcohol use: No Alcohol/week: 0.0 standard drinks of alcohol Drug use: No Social History Narrative to Sameer since 1983. No Children, 2 stepdtrs (one of ETOHism), NS since 1994, NO ETOH, [employer] retiree in 1995 SCREENINGS PHYSICAL EXAM (up to 7 for level 4, 8 or more for level 5) @EDTRIAGEVSS@ Appropriate PPE including n 95, gown, gloves, goggles where worn when appropriate with this patient. Physical Exam Vital signs reviewed general: Patient is awake but she is unaware of where she is or surroundings. She does not rememberfalling head: Atraumatic, no cephalhematoma eyes: Equal round reactive to light and accommodating, pupils are equal, round and reactive to light and accommodation oropharynx: Clear and well hydrated neck: Supple no midline cervical tenderness heart: Regular rate and rhythm, no murmurs lungs: Clear to auscultation bilaterally abdomen: Soft nontender, positive bowel sounds, no peritoneal findings. No rebound or guarding Extremities: Moving all fours, no tenderness. No hip pain bilaterally no knee pain bilaterally no upper extremity shoulder elbow wrist pain bilaterally normal capillary refill. Skin: No rash or lesions -to the exposed skin neurologically: Awake she does follow commands she is nauseated but she does not know where she is.She does not remember falling. She has no focal neurologic deficit. No cranial nerve deficit. Her sensations intact. DIAGNOSTIC RESULTS RADIOLOGY: Interpretation per the Radiologist below, if availableat the time of this note: CT chest wo IV contrast Final Result 1. Spiculated 2.5 x 1.8 cm nodule at the left lung apex. Further evaluation with PET/CT or tissue sampling is recommended. 2. Additional 0.5 cm and 0.4 cm nodules within the left lower lobe 3. Mild emphysema and fibrotic changes. 4. Moderate hiatal hernia. CRITICAL TEST COMMUNICATION: Dr. Wasserman was notified via [employer] Secure Chat today at 10:47 AM. 2017 - UPDATED [employer] GUIDELINES FOR MANAGEMENT OF SMALL PULMONARY NODULES DETECTED ON CT Note: Recommendations do not apply for lung cancer screening, patients with immunosuppression or with known cancer. Dimensions are average of long and short axis rounded to the millimeter SOLITARY NODULE: LOW RISK PATIENT <6mm - No follow up 6-8mm - 6-12 months, then consider 18-24 months >8mm - PET/CT, Bx or followup in 3 months SOLITARY NODULE: HIGH RISK PATIENT <6mm - Optional 6-12 months (suspicious morphology or upper lobe) 6-8mm - 6-12 months, then 18-24 months >8mm - PET/CT, Bx or followup in 3 months MULTIPLE NODULES: LOW RISK PATIENT (Use most suspicious nodule to manage guidelines) All <6mm - No follow up Any >6mm - 3-6 months, then consider 18-24 months MULTIPLE NODULES: HIGH RISK PATIENT (Use most suspicious nodule to manage guidelines) All <6mm - No follow up Any >6mm - 3-6 months, then 18-24 months SUBSOLID NODULE: SINGLE GROUND GLASS OPACITY <6mm - No follow up 6mm or greater - 6-12 months, then every 2 years until 5 years SUBSOLID NODULE: PART SOLID <6mm - No follow up 6mm or greater - 3-6 months, then if solid component <6mm and unchanged every year until 5 years MULTIPLE SUBSOLID NODULES: All <6mm - 3-6 months, then if stable 24 and 48 months 6mm or greater - 3-6 months, subsequent management based upon most suspicious nodule Report Dictated on Electronically Signed By: Leonel Rubio MD Electronically Signed Date/Time: 01/16/2024 10:[address] abdomen pelvis w contrast Final Result No acute injury within the abdomen/pelvis. Mild proximal colitis. Colonic and duodenal diverticulosis. Bilateral renal cortical atrophy. Moderate sized sliding hiatal hernia. Report Dictated on Electronically Signed By: Jessie Pinedo MD Electronically Signed Date/Time: 01/16/2024 10:[address] cervical spine wo IV contrast Final Result 1. No acute cervical spine fracture. 2. Spiculated nodule at the left lung apex measuring 2.1 cm. Refer to concurrent chest CT for further evaluation. 3. Osteopenia. 4. Multilevel degenerative changes of the cervical spine. Report Dictated on Electronically Signed By: Leonel Rubio MD Electronically Signed Date/Time: 01/16/2024 10:[address] head wo IV contrast Final Result No acute intracranial hemorrhage or mass effect. 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 Report Dictated on Electronically Signed By: Leonel Rubio MD Electronically Signed Date/Time: 01/16/2024 10:27 AM EST XR chest 1 view Final Result FINDINGS/IMPRESSION: 1. Lines/Tubes/Devices/Hardware: None. 2. Lungs: Possible nodular airspace opacity at the left lung apex measuring 1.9 cm. Further evaluation with CT of the chest is recommended. No consolidation or pulmonary edema. 3. Pleura: No pneumothorax or large pleural effusions. 4. Heart and mediastinum: Normal cardiomediastinal contours. CRITICAL TEST COMMUNICATION: Dr. Wasserman was notified via [employer] Secure Chat today at 9:37 AM. Report Dictated on Electronically Signed By: Leonel Rubio MD Electronically Signed Date/Time: 01/16/2024 9:37 AM EST ED BEDSIDE ULTRASOUND: Performed by ED Physician - none LABS: Labs Reviewed COMPREHENSIVE METABOLIC PANEL - Abnormal Result Value SODIUM 137 POTASSIUM 3.4 (*) CHLORIDE 103 CARBON DIOXIDE 25 ANION GAP 9 UREA NITROGEN 13 CREATININE 0.89 GLUCOSE 134 (*) CALCIUM 8.7 AST (SGOT) 23 ALT 16 ALKALINE PHOSPHATASE 117 ALBUMIN 3.8 BILIRUBIN, TOTAL 0.7 TOTAL PROTEIN 6.5 eGFR 64.0 LIPASE - Abnormal LIPASE 321 (*) COMPLETE URINALYSIS - Abnormal Color, Urine Colorless Clarity, Urine Clear pH, Urine 6.5 Leukocytes, Urine 25 (*) Nitrite, Urine Negative Protein, Urine Negative Glucose, Urine Normal Bilirubin, Urine Negative Ketones, Urine Negative Urobilinogen, Urine Normal Blood, Urine Negative RBC, Urine 0-2 WBC, Urine 3-5 Squamous Epithelial, Urine 0-2 Bacteria, Urine Few (*) SPECIFIC GRAVITY OF URINE (NUMERIC) 1.021 CBC WITH AUTO DIFFERENTIAL - Abnormal Auto WBC 6.4 RBC 4.45 Hemoglobin 12.3 Hematocrit 37.9 MCV 85.1 MCH 27.6 MCHC 32.4 RDW 14.6 (*) Platelets 258 MPV 9.3 nRBC 0.0 Neutrophils Relative 75.0 Lymphocytes Relative 13.7 (*) Monocytes Relative 8.6 Eosinophils Relative 2.2 Basophils Relative 0.5 Neutrophils Absolute 4.8 Lymphocytes Absolute 0.9 (*) Monocytes Absolute 0.5 Eosinophils Absolute 0.1 Basophils Absolute 0.0 SARS-COV-2, FLU A/B, AND RSV COMBO - Normal SARS-CoV-2 Not Detected Respiratory Syncytial Virus Not Detected Influenza A Not Detected Influenza B Not Detected Narrative: Methodology: real-time, RT-PCR The SARS-CoV-2, Flu A/B, and RSV Combo assay is intended for in vitro diagnostic use under the FDA Emergency Use Authorization (EUA). This test has not been FDA cleared or approved. In compliance with this authorization, please visit www.fda.gov/media/939516/download or www.fda.gov/media/382733/download to access the applicable information sheets. TROPONIN, WITH SERIAL REFLEX - Normal TROPONIN I <0.012 Narrative: Patients with high levels of Biotin oral intake (ie >5 mg/day) may have falsely decreased Troponin levels. CK - Normal CK 39 LACTIC ACID WITH REFLEX - Normal LACTIC ACID 1.8 COMPLETE URINALYSIS WITH REFLEX TO CULTURE Narrative: The following orders were created for panel order Urinalysis complete with reflex to Culture. Procedure Abnormality Status --------- ------ Complete Urinalysis[[id number]] Abnormal Final result Please view results for these tests on the individual orders. TROPONIN I TROPONIN I All other labs were within normal range or not returned as of thisdictation. EMERGENCYDEPARTMENT COURSE and DIFFERENTIAL DIAGNOSIS/MDM: Vitals: Vitals: 01/16/24 0839 01/16/24 1149 BP: 118/82 (!) 156/87 BP Location: Left arm Patient Position: Sitting Pulse: 87 92 Resp: Temp: 36.6 C (97.8 F) TempSrc: Oral SpO2: 99% 96% Weight: 61.5 kg (135 lb 8 oz) Medical Decision Making Problems Addressed: Syncope and collapse: complicated acute illness or injury Amount and/or Complexity of Data Reviewed Labs: ordered. Radiology: ordered. ECG/medicine tests: ordered. Risk Prescription drug management. Decision regarding hospitalization. EMERGENCY DEPARTMENT COURSE and DIFFERENTIAL DIAGNOSIS/MDM: Vitals: Vitals: 01/16/24 0839 01/16/24 1149 BP: 118/82 (!) 156/87 BP Location: Left arm Patient Position: Sitting Pulse: 87 92 Resp: Temp: 36.6 C (97.8 F) TempSrc: Oral SpO2: 99% 96% Weight: 61.5 kg (135 lb 8 oz) The patient presented with a chief complaint of fall. The differential diagnosis associated with this patient's presentation includes syncope close head injury gait disturbance mechanical fall dehydration UTI sepsis spinal fracture closed head injury cervical injury. Our workup consisted of ordering/reviewing blood work CT head neck abdomen pelvis urine. I did discuss with the she is a full code.. ED Course as of 01/16/24 1218 FriJan 16, 2024 1015 Potassium 3.4. Lactic acid normal. CK is normal. COVID RSV is negative. Lipase is 321. Negative troponin. Urine is pending. No leukocytosis. Normal hemoglobin. [GS] 1214 Labs reviewed. Urine will be sent for culture. Normal CK normal troponin. Lactic acid normal. Potassium 3.4. Patient given additional 500 saline bolus nausea is improved. Chest x-ray showed nodule left upper lung per my interpretation confirmed by radiology. CT of the chest showed spiculated nodule that we will need follow-up. CT abdomen CT head and neck showed no significant acute process full report reviewed. I talked to the and he said she was changing her sheets then went to the bathroom and heard the thud he did not see her fall. He does not think she tripped but she does have dementia. It is difficult to say whether this was tripping whether this was syncope I do not believe it is PE she is not hypoxic. Her CT of her abdomen did show some colitis so I think she is dehydrated but do not believe antibiotics are needed do not believe this is sepsis. I believe she warrants admission for further evaluation and treatment and obviously further evaluation of the finding on her CT of the chest. Although that may end up having outpatient workup but I did explain that to thekareemsband as best as I could get him to understand. She is a full code. I spoke with Dr. Arriaga. I explained all clinical findings, signs, symptoms, diagnostic studies, treatment, intervention, in theEmergency Department. She agrees to except [GS] ED Course User Index [GS] Don Wasserman MD Diagnoses as of 01/16/24 1218 Syncope and collapse Lung nodule Dehydration Colitis Hypokalemia Diagnostics considered but not indicated based on history, physical, testing: None External records reviewed: Records reviewed family practice visit 10/23/2023 for CHF hypertension also seen for Alzheimer's disease. Radiologic diagnostics interpreted by me: film images such as CT, Ultrasound and MRI are read by the radiologist. Plain radiographic images are visualized and preliminarily interpreted by the emergency physician with the below findings: EKG(s) EKG sinus rhythm no acute ST elevation Q-wave inferiorly, per my interpretation, no acute change compared to previous. Xray(s) chest x-ray shows left upper lung nodule per my interpretation confirmed by radiology. CT scan(s) CT reports full reviewed per radiology. Discussions with other clinicians: Admitting team Dr. Arriaga hospitalist who will admit. Chronic conditions impacting care: Dementia hypertension neuropathy CVA patient is on aspirin and Plavix Irritable bowel anxiety COPD Social determinants of health affecting care: Lives at home with Shared decision making: Patient agrees to treatment plan ED Medications managed: Medications sodium chloride 0.9 % bolus 500 mL (500 mL IntraVENous New Bag 01/16/24 1155) potassium bicarbonate (K-Lyte) effervescent tablet 25 mEq (has no administration in time range) sodium chloride 0.9 % bolus 500 mL (0 mL IntraVENous Stopped 01/16/24 0946) ondansetron (Zofran) injection 4 mg (4 mg IntraVENous Given 01/16/24 0846) iopamidol (Isovue-370) 76 % injection 75 mL (75 mL IntraVENous Given 01/16/24 1017) Prescription drugs prescribed: PROCEDURES: Unless otherwise noted below, none Procedures IMPRESSION 1. Syncope and collapse 2. Lung nodule 3. Dehydration 4. Colitis 5. Hypokalemia DISPOSITION/PLAN DISPOSITION Admit 01/16/2024 11:52:07 AM PATIENT REFERRED TO: No follow-up provider specified. DISCHARGE MEDICATIONS: New Prescriptions No medications on file @[facility]([id number]:LAST:1)@ (Comment: Please notethis report has been produced using speech recognition software and may contain errors related to that system including errors in grammar, punctuation, and spelling, as well as words and phrases that may be inappropriate.If there is any questions or concerns please feel free tocontact the dictating provider for clarification). Don Wasserman MD (electronically signed) Attending Emergency Physician Don Wasserman MD 01/16/24 1218 documented in this [facility]02-23-2024 Physician Emergency department Note* Don Wasserman MD - 01/16/2024 8:17 AM EST [facility] ED EMERGENCY DEPARTMENT ENCOUNTER Pt Name: Farzana Herron Birthdate 1940 Date of evaluation: 01/16/2024 Provider: Don Wasserman MD CHIEF COMPLAINT Chief Complaint Patient presents with Fall Pt comes to the Ed today due to having a fall at home pt states she does not remember the incident pt does not know the year however can state current month and is alert to person and place. Vomiting Fall HISTORY OF PRESENT ILLNESS (Location/Symptom, Timing/Onset,Context/Setting, Quality, Duration, Modifying Factors, Severity) Note limiting factors. Farzana Herron is a 83 y.o. female who presents to the emergency department with fall. Patient islimited historian she does remember what happened although she is nauseated. Brought in via squad. I spoke to her and he explained that this morning she was going to the bathroom and heard a loud noise and she had fallen. He did states she was briefly unconscious. She does have a history ofstroke remotely and ever since then she has had problems with dementia. She baseline has baseline dementia and confusion. She has not been recently sick or ill. He says she do normally does not walk well. She has not been complaining of being sick or ill. HPI Historian is from the patient but very limited due to her Alzheimer's. I did have extensive discussion with the as described above. Nurse's notes for past medical history, surgical history, social history were reviewed. Medicationsand allergies reviewed. PAST MEDICAL HISTORY Past Medical History: Diagnosis Date Alzheimer's disease, unspecified (CODE) ([facility]) 01/2021 Anxiety CAD (coronary artery disease) 06/2016 Dr. Martinez- AL-hypokinetic RV- RCA ballon angioplasty- EF 48% 08/10- Dr Gianna Garrett ulcer 2010 Carotid artery disease without cerebral infarction ([facility]) 09/2015 angiogram with <70 % stenosis Left ICA- defers repeat studies Collagenous colitis [address] Teague COPD (chronic obstructive pulmonary disease) ([facility]) 04/2017 ex smoker since 1994--CT also 12/11 Essential hypertension 09/26/2021 GERD (gastroesophageal reflux disease) 2010 [facility]-EGD 10/07 and 11/08 H/O colonoscopy 10/2018 [facility]- divert ds- no changes, ? repeat nec H/O: UGI bleed 10/2016 severe esophagitis History of DVT of lower extremity 10/2016 IVC filter History of hypertension 1999 off rx since 04/09 History of myocardial infarction 06/2016 LVEF 48 % History of rhabdomyolysis 07/2017 UGI bleed and Hypotension with CHF Hypercholesterolemia IBS (irritable bowel syndrome) with diarrhea LV dysfunction 07/2017 EF 48 % Neuropathy 09/2014 idiopathic per [facility] lower ext OAB (overactive bladder) Osteoporosis with pathological fracture 2011 per [facility]-2013 MRI thoracic spine DDD -prolia injections -- L1 fx 2017 Other specified glaucoma Psoriasis Thoracic compression fracture ([facility]) 1960 horse riding accident- DDD SURGICALHISTORY Past Surgical History: Procedure Laterality Date BALLOON ANGIOPLASTY, ARTERY 06/[address] Martinez CARPAL TUNNEL RELEASE Bilateral 1987 CATARACT EXTRACTION Bilateral 12/09 [facility] CHOLECYSTECTOMY 2002 COLONOSCOPY 10/2018 med- neg- ? due COLONOSCOPY 08/2011 chronic diarrhea ([facility]) FOOT SURGERY HIATAL HERNIA REPAIR 10/2011 gastroplexy per [facility] ULNAR TUNNEL RELEASE Right 2003 UPPER GASTROINTESTINAL ENDOSCOPY 09/2011 GERD-uzair ulcer - s/p gastroplexy per Dr. Lamb 11/03 --neg CT abd 03/06 rech 10/07 ([facility]) UPPER GASTROINTESTINAL ENDOSCOPY 10/28/2016 [facility]- esoph stenosis and HH with reflux CURRENT MEDICATIONS Previous Medications ACETAMINOPHEN (TYLENOL) 325 MG TABLET Take 650 mg by mouth. ALBUTEROL 108 (90 BASE) MCG/ACT INHALER Inhale 2 puffs every 6 hours as needed for wheezing or shortness of breath. ASPIRIN LOW DOSE 81 MG EC TABLET TAKE 1 TABLET BY MOUTH EVERY MORNING ATORVASTATIN (LIPITOR) 10 MG TABLET Take 1 tablet (10 mg) by mouth Nightly for 180 doses. CALCIUM CARB-CHOLECALCIFEROL (OYSTER SHELL CALCIUM W/D) 500-5 MG-MCG TABLET Take 2 tablets by mouthevery morning (before breakfast). CALCIUM CARBONATE-VITAMIN D (CALCIUM-VITAMIN D) 500-200 MG-UNIT TABLET TAKE 2 TABLETS BY MOUTH EVERY MORNING (BEFORE BREAKFAST) CLOPIDOGREL (PLAVIX) 75 MG TABLET TAKE ONE TABLET AT 5PM DONEPEZIL (ARICEPT) 5 MG TABLET Take 1 tablet (5 mg) by mouth Nightly. ERGOCALCIFEROL (VITAMIN D2) 1.25 MG (27957 UT) CAPSULE TAKE 1 CAPSULE BY MOUTH ONE TIME PER WEEK FLUTICASONE (FLOVENT) 220 MCG/ACT INHALER Inhale 2 puffs 2 times daily. GABAPENTIN (NEURONTIN) 300 MG CAPSULE TAKE 1 CAPSULE BY MOUTH TWICE DAILY GUAIFENESIN (MUCUS RELIEF) 600 MG 12 HR TABLET TAKE 2 TABLETS BY MOUTH TWICE DAILY ISOSORBIDE MONONITRATE ER (IMDUR) 60 MG 24 HR TABLET Take 1 tablet (60 mg) by mouth every morning. LEVOTHYROXINE (SYNTHROID, LEVOXYL) 50 MCG TABLET Take 1 tablet (50 mcg) by mouth every morning for 180 doses. LORATADINE (CLARITIN) 10 MG TABLET TAKE 1 TABLET BY MOUTH EVERY MORNING METOPROLOL SUCCINATE XL (TOPROL-XL) 50 MG 24 HR TABLET Increase to 50 mg q day MIRTAZAPINE (REMERON) 7.5 MG TABLET Decrease to 7.5 mg at HS OMEGA-3 (FISH OIL) 1000 MG CAPSULE TAKE THREE CAPSULES IN THE MORNING PANTOPRAZOLE (PROTONIX) 40 MG EC TABLET CHANGE TO ONE EACH EVENING BEFORE BEDTIME SPIRIVA HANDIHALER [address] 1 capsule (18 mcg) into inhaler and inhale daily. Codeine FAMILY HISTORY Family History Problem Relation Name Age of Onset Cancer Mother age 60 ? met bone CA, Heart disease Father age 70 No Known Problems Sister No Known Problems Sister Kalani Diabetes type II Sister COPD Sister meet pulliam Diabetes Sister No Known Problems Sister Shira Liver disease Brother age 50 of ETOH abuse No Known Problems Brother Philip SOCIAL HISTORY Social History Socioeconomic History Marital status: Tobacco Use Smoking status: Former Packs/day: 0 Types: Cigarettes Quit date: 06/08/1990 Years since quittin.6 Smokeless tobacco: Never Substance and Sexual Activity Alcohol use: No Alcohol/week: 0.0 standard drinks of alcohol Drug use: No Social History Narrative to Sameer since 1983. No Children, 2 stepdtrs (one of ETOHism), [place] since 1994, NO ETOH, [employer] retiree in 1995 SCREENINGS PHYSICAL EXAM (up to 7 for level 4, 8 or more for level 5) @[facility]@ Appropriate PPE including n 95, gown, gloves, goggles where worn when appropriate with this patient. Physical Exam Vital signs reviewed general: Patient is awake but she is unaware of where she is or surroundings. She does not rememberfalling head: Atraumatic, no cephalhematoma eyes: Equal round reactive to light and accommodating, pupils are equal, round and reactive to light and accommodation oropharynx: Clear and well hydrated neck: Supple no midline cervical tenderness heart: Regular rate and rhythm, no murmurs lungs: Clear to auscultation bilaterally abdomen: Soft nontender, positive bowel sounds, no peritoneal findings. No rebound or guarding Extremities: Moving all fours, no tenderness. No hip pain bilaterally no knee pain bilaterally no upper extremity shoulder elbow wrist pain bilaterally normal capillary refill. Skin: No rash or lesions -to the exposed skin neurologically: Awake she does follow commands she is nauseated but she does not know where she is.She does not remember falling. She has no focal neurologic deficit. No cranial nerve deficit. Her sensations intact. DIAGNOSTIC RESULTS RADIOLOGY: Interpretation per the Radiologist below, if availableat the time of this note: CT chest wo IV contrast Final Result 1. Spiculated 2.5 x 1.8 cm nodule at the left lung apex. Further evaluation with PET/CT or tissue sampling is recommended. 2. Additional 0.5 cm and 0.4 cm nodules within the left lower lobe 3. Mild emphysema and fibrotic changes. 4. Moderate hiatal hernia. CRITICAL TEST COMMUNICATION: Dr. Wasserman was notified via [employer] Secure Chat today at 10:47 AM. 2017 - UPDATED [employer] GUIDELINES FOR MANAGEMENT OF SMALL PULMONARY NODULES DETECTED ON CT Note: Recommendations do not apply for lung cancer screening, patients with immunosuppression or with known cancer. Dimensions are average of long and short axis rounded to the millimeter SOLITARY NODULE: LOW RISK PATIENT <6mm - No follow up 6-8mm - 6-12 months, then consider 18-24 months >8mm - PET/CT, Bx or followup in 3 months SOLITARY NODULE: HIGH RISK PATIENT <6mm - Optional 6-12 months (suspicious morphology or upper lobe) 6-8mm - 6-12 months, then 18-24 months >8mm - PET/CT, Bx or followup in 3 months MULTIPLE NODULES: LOW RISK PATIENT (Use most suspicious nodule to manage guidelines) All <6mm - No follow up Any >6mm - 3-6 months, then consider 18-24 months MULTIPLE NODULES: HIGH RISK PATIENT (Use most suspicious nodule to manage guidelines) All <6mm - No follow up Any >6mm - 3-6 months, then 18-24 months SUBSOLID NODULE: SINGLE GROUND GLASS OPACITY <6mm - No follow up 6mm or greater - 6-12 months, then every 2 years until 5 years SUBSOLID NODULE: PART SOLID <6mm - No follow up 6mm or greater - 3-6 months, then if solid component <6mm and unchanged every year until 5 years MULTIPLE SUBSOLID NODULES: All <6mm - 3-6 months, then if stable 24 and 48 months 6mm or greater - 3-6 months, subsequent management based upon most suspicious nodule Report Dictated on Electronically Signed By: Leonel Rubio MD Electronically Signed Date/Time: 01/16/2024 10:[address] abdomen pelvis w contrast Final Result No acute injury within the abdomen/pelvis. Mild proximal colitis. Colonic and duodenal diverticulosis. Bilateral renal cortical atrophy. Moderate sized sliding hiatal hernia. Report Dictated on Electronically Signed By: Jessie Pinedo MD Electronically Signed Date/Time: 01/16/2024 10:[address] cervical spine wo IV contrast Final Result 1. No acute cervical spine fracture. 2. Spiculated nodule at the left lung apex measuring 2.1 cm. Refer to concurrent chest CT for further evaluation. 3. Osteopenia. 4. Multilevel degenerative changes of the cervical spine. Report Dictated on Electronically Signed By: Leonel Rubio MD Electronically Signed Date/Time: 01/16/2024 10:[address] head wo IV contrast Final Result No acute intracranial hemorrhage or mass effect. 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 Report Dictated on Electronically Signed By: Leonel Rubio MD Electronically Signed Date/Time: 01/16/2024 10:27 AM EST XR chest 1 view Final Result FINDINGS/IMPRESSION: 1. Lines/Tubes/Devices/Hardware: None. 2. Lungs: Possible nodular airspace opacity at the left lung apex measuring 1.9 cm. Further evaluation with CT of the chest is recommended. No consolidation or pulmonary edema. 3. Pleura: No pneumothorax or large pleural effusions. 4. Heart and mediastinum: Normal cardiomediastinal contours. CRITICAL TEST COMMUNICATION: Dr. Wasserman was notified via [employer] Secure Chat today at 9:37 AM. Report Dictated on Electronically Signed By: Leonel Rubio MD Electronically Signed Date/Time: 01/16/2024 9:37 AM EST ED BEDSIDE ULTRASOUND: Performed by ED Physician - none LABS: Labs Reviewed COMPREHENSIVE METABOLIC PANEL - Abnormal Result Value SODIUM 137 POTASSIUM 3.4 (*) CHLORIDE 103 CARBON DIOXIDE 25 ANION GAP 9 UREA NITROGEN 13 CREATININE 0.89 GLUCOSE 134 (*) CALCIUM 8.7 AST (SGOT) 23 ALT 16 ALKALINE PHOSPHATASE 117 ALBUMIN 3.8 BILIRUBIN, TOTAL 0.7 TOTAL PROTEIN 6.5 eGFR 64.0 LIPASE - Abnormal LIPASE 321 (*) COMPLETE URINALYSIS - Abnormal Color, Urine Colorless Clarity, Urine Clear pH, Urine 6.5 Leukocytes, Urine 25 (*) Nitrite, Urine Negative Protein, Urine Negative Glucose, Urine Normal Bilirubin, Urine Negative Ketones, Urine Negative Urobilinogen, Urine Normal Blood, Urine Negative RBC, Urine 0-2 WBC, Urine 3-5 Squamous Epithelial, Urine 0-2 Bacteria, Urine Few (*) SPECIFIC GRAVITY OF URINE (NUMERIC) 1.021 CBC WITH AUTO DIFFERENTIAL - Abnormal Auto WBC 6.4 RBC 4.45 Hemoglobin 12.3 Hematocrit 37.9 MCV 85.1 MCH 27.6 MCHC 32.4 RDW 14.6 (*) Platelets 258 MPV 9.3 nRBC 0.0 Neutrophils Relative 75.0 Lymphocytes Relative 13.7 (*) Monocytes Relative 8.6 Eosinophils Relative 2.2 Basophils Relative 0.5 Neutrophils Absolute 4.8 Lymphocytes Absolute 0.9 (*) Monocytes Absolute 0.5 Eosinophils Absolute 0.1 Basophils Absolute 0.0 SARS-COV-2, FLU A/B, AND RSV COMBO - Normal SARS-CoV-2 Not Detected Respiratory Syncytial Virus Not Detected Influenza A Not Detected Influenza B Not Detected Narrative: Methodology: real-time, RT-PCR The SARS-CoV-2, Flu A/B, and RSV Combo assay is intended for in vitro diagnostic use under the FDA Emergency Use Authorization (EUA). This test has not been FDA cleared or approved. In compliance with this authorization, please visit www.fda.gov/media/069028/download or www.fda.gov/media/313421/download to access the applicable information sheets. TROPONIN, WITH SERIAL REFLEX - Normal TROPONIN I <0.012 Narrative: Patients with high levels of Biotin oral intake (ie >5 mg/day) may have falsely decreased Troponin levels. CK - Normal CK 39 LACTIC ACID WITH REFLEX - Normal LACTIC ACID 1.8 COMPLETE URINALYSIS WITH REFLEX TO CULTURE Narrative: The following orders were created for panel order Urinalysis complete with reflex to Culture. Procedure Abnormality Status --------- ------ Complete Urinalysis[[id number]] Abnormal Final result Please view results for these tests on the individual orders. TROPONIN I TROPONIN I All other labs were within normal range or not returned as of thisdictation. EMERGENCYDEPARTMENT COURSE and DIFFERENTIAL DIAGNOSIS/MDM: Vitals: Vitals: 01/16/24 0839 01/16/24 1149 BP: 118/82 (!) 156/87 BP Location: Left arm Patient Position: Sitting Pulse: 87 92 Resp: 22 22 Temp: 36.6 C (97.8 F) TempSrc: Oral SpO2: 99% 96% Weight: 61.5 kg (135 lb 8 oz) Medical Decision Making Problems Addressed: Syncope and collapse: complicated acute illness or injury Amount and/or Complexity of Data Reviewed Labs: ordered. Radiology: ordered. ECG/medicine tests: ordered. Risk Prescription drug management. Decision regarding hospitalization. EMERGENCY DEPARTMENT COURSE and DIFFERENTIAL DIAGNOSIS/MDM: Vitals: Vitals: 01/16/24 0839 01/16/24 1149 BP: 118/82 (!) 156/87 BP Location: Left arm Patient Position: Sitting Pulse: 87 92 Resp: Temp: 36.6 C (97.8 F) TempSrc: Oral SpO2: 99% 96% Weight: 61.5 kg (135 lb 8 oz) The patient presented with a chief complaint of fall. The differential diagnosis associated with this patient's presentation includes syncope close head injury gait disturbance mechanical fall dehydration UTI sepsis spinal fracture closed head injury cervical injury. Our workup consisted of ordering/reviewing blood work CT head neck abdomen pelvis urine. I did discuss with the she is a full code.. ED Course as of 01/16/24 1218 FriJan 16, 2024 1015 Potassium 3.4. Lactic acid normal. CK is normal. COVID RSV is negative. Lipase is 321. Negative troponin. Urine is pending. No leukocytosis. Normal hemoglobin. [GS] 1214 Labs reviewed. Urine will be sent for culture. Normal CK normal troponin. Lactic acid normal. Potassium 3.4. Patient given additional 500 saline bolus nausea is improved. Chest x-ray showed nodule left upper lung per my interpretation confirmed by radiology. CT of the chest showed spiculated nodule that we will need follow-up. CT abdomen CT head and neck showed no significant acute process full report reviewed. I talked to the and he said she was changing her sheets then went to the bathroom and heard the thud he did not see her fall. He does not think she tripped but she does have dementia. It is difficult to say whether this was tripping whether this was syncope I do not believe it is PE she is not hypoxic. Her CT of her abdomen did show some colitis so I think she is dehydrated but do not believe antibiotics are needed do not believe this is sepsis. I believe she warrants admission for further evaluation and treatment and obviously further evaluation of the finding on her CT of the chest. Although that may end up having outpatient workup but I did explain that to [facility] as best as I could get him to understand. She is a full code. I spoke with Dr. Arriaga. I explained all clinical findings, signs, symptoms, diagnostic studies, treatment, intervention, in theEmergency Department. She agrees to except [GS] ED Course User Index [GS] Dno Wasserman MD Diagnoses as of 01/16/24 1218 Syncope and collapse Lung nodule Dehydration Colitis Hypokalemia Diagnostics considered but not indicated based on history, physical, testing: None External records reviewed: Records reviewed family practice visit 10/23/2023 for CHF hypertension also seen for Alzheimer's disease. Radiologic diagnostics interpreted by me: film images such as CT, Ultrasound and MRI are read by the radiologist. Plain radiographic images are visualized and preliminarily interpreted by the emergency physician with the below findings: EKG(s) EKG sinus rhythm no acute ST elevation Q-wave inferiorly, per my interpretation, no acute change compared to previous. Xray(s) chest x-ray shows left upper lung nodule per my interpretation confirmed by radiology. CT scan(s) CT reports full reviewed per radiology. Discussions with other clinicians: Admitting team Dr. Arriaga hospitalist who will admit. Chronic conditions impacting care: Dementia hypertension neuropathy CVA patient is on aspirin and Plavix Irritable bowel anxiety COPD Social determinants of health affecting care: Lives at home with Shared decision making: Patient agrees to treatment plan ED Medications managed: Medications sodium chloride 0.9 % bolus 500 mL (500 mL IntraVENous New Bag 01/16/24 1155) potassium bicarbonate (K-Lyte) effervescent tablet 25 mEq (has no administration in time range) sodium chloride 0.9 % bolus 500 mL (0 mL IntraVENous Stopped 01/16/24 0946) ondansetron (Zofran) injection 4 mg (4 mg IntraVENous Given 01/16/24 0846) iopamidol (Isovue-370) 76 % injection 75 mL (75 mL IntraVENous Given 01/16/24 1017) Prescription drugs prescribed: PROCEDURES: Unless otherwise noted below, none Procedures IMPRESSION 1. Syncope and collapse 2. Lung nodule 3. Dehydration 4. Colitis 5. Hypokalemia DISPOSITION/PLAN DISPOSITION Admit 01/16/2024 11:52:07 AM PATIENT REFERRED TO: No follow-up provider specified. DISCHARGE MEDICATIONS: New Prescriptions No medications on file @[facility]([id number]:LAST:1)@ (Comment: Please notethis report has been produced using speech recognition software and may contain errors related to that system including errors in grammar, punctuation, and spelling, as well as words and phrases that may be inappropriate.If there is any questions or concerns please feel free tocontact the dictating provider for clarification). Don Wasserman MD (electronically signed) Attending Emergency Physician Don Wasserman MD 01/16/24 1218 [id number] Telephone encounter Note* Telephone Encounter - Yesi Jon - 08/01/2023 10:24 AM EDT Name of caller: [place] Contact phone number: [phone] Relationship to Patient: Pharmacy Provider: Dr. Conde Practice: [facility] Chief Complaint/Reason for Call: Pharmacy had previously requested refills for Mucinex 600mg and Aspirin Low Dose EC 81 along with 2 other Rx. They received the other 2 Rx but not these 2. Is the patient still using these? They are packaging her meds and do not have any for these 2 meds to include.Please advise. Thank you. Best time of day caller can be reached: AM Patient advised that office/PCP has 24-48 business hours to return their call: No [facility] [id number] Miscellaneous Notes* Telephone Encounter - Yesikali Webb - 08/01/2023 10:24 AM EDT Name of caller: Nikki Contact phone number: [phone] Relationship to Patient: Pharmacy Provider: Dr. Conde Practice: [facility] Chief Complaint/Reason for Call: Pharmacy had previously requested refills for Mucinex 600mg and Aspirin Low Dose EC 81 along with 2 other Rx. They received the other 2 Rx but not these 2. Is the patient still using these? They are packaging her meds and do not have any for these 2 meds to include.Please advise. Thank you. Best time of day caller can be reached: AM Patient advised that office/PCP has 24-48 business hours to return their call: No documented in this encounterSUniversity Hospitals Conneaut Medical [id number] Telephone encounter Note* Telephone Encounter - Fanny Lua LPN - 07/18/2023 10:52 AM EDT Rx loaded Medications were sent to wrong pharmacy, please sign again. [facility] [id number] Miscellaneous Notes* Telephone Encounter - Fanny Lua LPN - 07/18/2023 10:52 AM EDT Rx loaded Medications were sent to wrong pharmacy, please sign again. * Telephone Encounter - Roxy Pa - 07/18/2023 10:24 AM EDT Name of caller: Naheed Contact phone number: [phone] Relationship to Patient: [facility] Provider: Dr Conde Practice: [facility] Chief Complaint/Reason for Call: Pharmacy called and stated that all the patients medication was discontinued by office. She stated that the patient didn't want to change pharmacies, they were askingfor refills. Can the refills from 07/17/2023 be sent to [facility] please per patient request. Please advsie. Best time of day caller can be reached: any Patient advised that office/PCP has 24-48 business hours to return their call: N/A documented in this encounterSUniversity Hospitals Conneaut Medical [id number] Telephone encounter Note* Telephone Encounter - Roxy Pa - 07/18/2023 10:24 AM EDT Name of caller: Naheed Contact phone number: [phone] Relationship to Patient: [facility] Provider: Dr Conde Practice: [facility] Chief Complaint/Reason for Call: Pharmacy called and stated that all the patients medication was discontinued by office. She stated that the patient didn't want to change pharmacies, they were askingfor refills. Can the refills from 07/17/2023 be sent to [facility] please per patient request. Please advsie. Best time of day caller can be reached: any Patient advised that office/PCP has 24-48 business hours to return their call: N/A [facility] [id number] History of Present illness Narrative* Wayne Potter Nyasiajamarirosina, DO - 07/17/2023 2:00 PM EDT Images from the original note were not included. [facility] [address] [facility] [address] Visit type: Established Patient Reason for Visit: Follow-up (3 month med check) Assessment / Plan: Farzana was seen today for follow-up. Diagnoses and all orders for this visit: Alzheimer's disease, unspecified (CODE) (HCC) (Primary) Comments: Stable, continue Aricept Essential hypertension Hypercholesterolemia Acquired hypothyroidism Neuropathy Comments: Stable, risk of gabapentin discussed. Continue as is 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, unspecified vessel or lesion type Comments: Stable, continue Plavix Isordil aspirin atorvastatin Other orders - atorvastatin (Lipitor) 10 MG tablet; Take 1 tablet (10 mg) by mouth Nightly for 180 doses. - clopidogrel (Plavix) 75 MG tablet; TAKE ONE TABLET AT 5PM - donepezil (Aricept) 5 MG tablet; Take 1 tablet (5 mg) by mouth Nightly. - fluticasone (Flovent) 220 MCG/ACT inhaler; Inhale 2 puffs 2 times daily. - gabapentin (Neurontin) 300 MG capsule; Decrease to one bid - isosorbide mononitrate ER (Imdur) 60 MG 24 hr tablet; Take 1 tablet (60 mg) by mouth every morning. - levothyroxine (Synthroid, Levoxyl) 50 MCG tablet; Take 1 tablet (50 mcg) by mouth every morning for 180 doses. - metoprolol succinate XL (Toprol-XL) 50 MG 24 hr tablet; Increase to 50 mg q day - mirtazapine (Remeron) 7.5 MG tablet; Decrease to 7.5 mg at HS - pantoprazole (ProtoNix) 40 MG EC tablet; CHANGE TO ONE EACH EVENING BEFORE BEDTIME - Spiriva HandiHaler 18 MCG inhalation capsule; Place 1 capsule (18 mcg) into inhaler and inhale daily. - sucralfate (Carafate) 1 g tablet; Take 1 tablet (1 g) by mouth 4 times daily (before meals and nightly). Subjective: Patient ID: Farzana Herron is a 82 y.o. female. HPI patient with stable heart disease and Alzheimer disease with chronic mid and low back pain and neuropathy on gabapentin presents for checkup. No change in mental status. Her is very helpful. She is compliant with meds. No exertional dyspnea or chest pain. No change in quality low back pain Review of Systems weight is stable. Does not interact a lot. Stays in the house a lot. No decline in memory. No hallucinations. Denies cough PND orthopnea claudication or edema. No abdominal pain. Bowels are regular on her multiple meds. No recent falls. She uses a cane most days Allergies Allergen Reactions Codeine Other reaction(s): GI Upset Per patient - unknown reaction Other reaction(s): Blisters Current Outpatient Medications on File Prior to Visit Medication Sig Dispense Refill acetaminophen (Tylenol) 325 MG tablet Take 650 mg by mouth. albuterol 108 (90 Base) MCG/ACT inhaler Inhale 2 puffs every 6 hours as needed for wheezing or shortness of breath. 18 g 5 Aspirin Low Dose 81 MG EC tablet Take 1 tablet (81 mg) by mouth every morning. 30 tablet 5 Calcium Carb-Cholecalciferol (Oyster Shell Calcium w/D) 500-5 MG-MCG tablet TAKE 2 TABLETS BY MOUTHEVERY MORNING (BEFORE BREAKFAST) Calcium Carbonate-Vitamin D (calcium-vitamin D) 500-200 MG-UNIT tablet TAKE 2 TABLETS BY MOUTH EVERY MORNING (BEFORE BREAKFAST) ergocalciferol (Vitamin D2) 1.25 MG (81982 UT) capsule TAKE 1 CAPSULE BY MOUTH ONE TIME PER WEEK 12capsule 3 guaiFENesin (Mucinex) 600 MG 12 hr tablet Take 2 tablets (1,200 mg) by mouth 2 times daily. 60 tablet 5 loratadine (Claritin) 10 MG tablet Take 1 tablet (10 mg) by mouth every morning. 30 tablet 5 omega-3 (Fish Oil) 1000 MG capsule TAKE THREE CAPSULES IN THE MORNING 30 capsule 5 [DISCONTINUED] atorvastatin (Lipitor) 10 MG tablet Take 1 tablet (10 mg) by mouth Nightly for 180 doses. 90 tablet 1 [DISCONTINUED] clopidogrel (Plavix) 75 MG tablet TAKE ONE TABLET AT 5PM 90 tablet 1 [DISCONTINUED] donepezil (Aricept) 5 MG tablet Take 1 tablet (5 mg) by mouth Nightly. 90 tablet 1 [DISCONTINUED] fluticasone (Flovent) 220 MCG/ACT inhaler Inhale 2 puffs 2 times daily. 12 g 5 [DISCONTINUED] gabapentin (Neurontin) 300 MG capsule Decrease to one bid 60 capsule 2 [DISCONTINUED] isosorbide mononitrate ER (Imdur) 60 MG 24 hr tablet Take 1 tablet (60 mg) by mouth every morning. 90 tablet 1 [DISCONTINUED] levothyroxine (Synthroid, Levoxyl) 50 MCG tablet Take 1 tablet (50 mcg) by mouth every morning for 180 doses. 90 tablet 1 [DISCONTINUED] metoprolol succinate XL (Toprol-XL) 50 MG 24 hr tablet Increase to 50 mg q day 30 tablet 5 [DISCONTINUED] mirtazapine (Remeron) 7.5 MG tablet Decrease to 7.5 mg at HS 90 tablet 1 [DISCONTINUED] pantoprazole (ProtoNix) 40 MG EC tablet CHANGE TO ONE EACH EVENING BEFORE BEDTIME 90tablet 1 [DISCONTINUED] Spiriva HandiHaler [address] 1 capsule (18 mcg) into inhaler and inhale daily. 30 capsule 5 [DISCONTINUED] sucralfate (Carafate) 1 g tablet Take 1 tablet (1 g) by mouth 4 times daily (before meals and nightly). 360 tablet 1 No current facility-administered medications on file prior to visit. 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 COPD (chronic obstructive pulmonary disease) ([facility]) Lumbar degenerative disc disease Alzheimer's disease, unspecified (CODE) ([facility]) Chronic systolic (congestive) heart failure ([facility]) Irritable bowel syndrome Psoriasis Osteoporosis with pathological fracture Thoracic compression fracture ([facility]) Anxiety GERD (gastroesophageal reflux disease) OAB (overactive bladder) Collagenous colitis Neuropathy Uzair ulcer Renal insufficiency LV dysfunction Hypercholesterolemia Hypothyroid Social History Tobacco Use Smoking status: Former Packs/day: 0.00 Types: Cigarettes Quit date: 06/08/1990 Years since quittin.1 Smokeless tobacco: Never Substance Use Topics Alcohol use: No Alcohol/week: 0.0 standard drinks of alcohol Past Surgical History: Procedure Laterality Date BALLOON ANGIOPLASTY, ARTERY 06/[address] Martinez CARPAL TUNNEL RELEASE Bilateral 1987 CATARACT EXTRACTION Bilateral 12/09 [facility] CHOLECYSTECTOMY 2001 COLONOSCOPY 10/2018 [facility]- neg- ? due COLONOSCOPY 08/2011 chronic diarrhea ([facility]) FOOT SURGERY HIATAL HERNIA REPAIR 10/2011 gastroplexy per Adonis ULNAR TUNNEL RELEASE Right 2003 UPPER GASTROINTESTINAL ENDOSCOPY 09/2011 GERD-uzair ulcer - s/p gastroplexy per Dr. Lamb 11/03 --neg CT abd 03/06 rech 10/07 ([facility]) UPPER GASTROINTESTINAL ENDOSCOPY 10/28/2016 [facility]- esoph stenosis and HH with reflux Family History Problem Relation Name Age of Onset Cancer Mother age 60 ? met bone CA, Heart disease Father age 70 No Known Problems Sister No Known Problems Sister Kalani Diabetes type II Sister COPD Sister meet pulliam Diabetes Sister No Known Problems Sister Shira Liver disease Brother age 50 of ETOH abuse No Known Problems Brother Philip Objective: BP 116/71 Pulse 71 Temp 36.4 C (97.5 F) (Temporal) Ht 4' 11 (1.499 m) Wt 121 lb (54.9 kg) SpO2 95% BMI 24.44 kg/m Physical Exam Pleasant cooperative. No acute distress. No JVD adenopathy or carotid bruits. No neck masses. Heartis regular without gallops or murmurs. Lungs are clear. Abdomen soft slightly obese without pain hepatosplenomegaly masses ascites or bruits. Extremities have no edema. There is no motor loss of the legs or feet. Fair range of motion of hip and knees without difficulty documented in this encounterSUniversity Hospitals Conneaut Medical [id number] Telephone encounter Note* Telephone Encounter - Fanny Lua LPN - 05/26/2023 11:47 AM EDT Rx loaded [facility] [id number] Miscellaneous Notes* Telephone Encounter - Fanny Lua LPN - 05/26/2023 11:47 AM EDT Rx loaded * Telephone Encounter - Shara Aguila - 05/26/2023 11:07 AM EDT Medication name: guaiFENesin (Mucinex) 600 MG 12 hr tablet 60 tablet 5 01/09/2023 Sig - Route: Take 2 tablets (1,200 mg) by mouth 2 times daily Medication dosage: 600 mg (Miligrams Monthly quantity needed: 60 How many day supply requestin days Medication route: oral (PO) Medication administration time(s): 2 times a day (BID) If taking medication PRN, reason for taking medication: allergy If this is a controlled substance do you receive this or any other controlled medication from any other doctor or facility: N/A Ordering provider: Elton Date of last office visit: 04.09.23 Date of next office visit: 07.17.23 Date of last refill: (see medication tab): 01.09.23 Updated/Validated preferred pharmacy: Yes Patient instructed to contact the pharmacy prior to picking up the medication: Yes Send to [facility] documented in this [id number] Telephone encounter Note* Telephone Encounter - Shara Aguila - 05/26/2023 11:07 AM EDT Medication name: guaiFENesin (Mucinex) 600 MG 12 hr tablet 60 tablet 5 01/09/2023 Sig - Route: Take 2 tablets (1,200 mg) by mouth 2 times daily Medication dosage: 600 mg (Miligrams Monthly quantity needed: 60 How many day supply requestin days Medication route: oral (PO) Medication administration time(s): 2 times a day (BID) If taking medication PRN, reason for taking medication: allergy If this is a controlled substance do you receive this or any other controlled medication from any other doctor or facility: N/A Ordering provider: Elton Date of last office visit: 04.09.23 Date of next office visit: 07.17.23 Date of last refill: (see medication tab): 01.09.23 Updated/Validated preferred pharmacy: Yes Patient instructed to contact the pharmacy prior to picking up the medication: Yes Send to [facility] on [address] [facility] [id number] Telephone encounter Note* Telephone Encounter - Jennifer Jensen MA - 05/09/2023 10:06 AM EDT Rx loaded [facility] [id number] Miscellaneous Notes* Telephone Encounter - Jennifer Jensen MA - 05/09/2023 10:06 AM EDT Rx loaded * Telephone Encounter - Nicolette Solomon - 05/09/2023 9:42 AM EDT Medication name: HYDROcodone-acetaminophen ([place]) 5-325 MG tablet Medication dosage: 5-325 mg (Miligrams Monthly quantity needed: 60 How many day supply requestin days Medication route: oral (PO) Medication administration time(s): 2 times a day (BID) If taking medication PRN, reason for taking medication: N/A If this is a controlled substance do you receive this or any other controlled medication from any other doctor or facility: No Ordering provider: Dr. Conde Date of last office visit: 04.09.2023 Date of next office visit: 07.17.2023 Date of last refill: (see medication tab): 04.09.2023 Updated/Validated preferred pharmacy: Yes Patient instructed to contact the pharmacy prior to picking up the medication: Yes documented in this encounterSUniversity Hospitals Conneaut Medical [id number] Telephone encounter Note* Telephone Encounter - Nicolette Solomon - 05/09/2023 9:42 AM EDT Medication name: HYDROcodone-acetaminophen ([place]) 5-325 MG tablet Medication dosage: 5-325 mg (Miligrams Monthly quantity needed: 60 How many day supply requestin days Medication route: oral (PO) Medication administration time(s): 2 times a day (BID) If taking medication PRN, reason for taking medication: N/A If this is a controlled substance do you receive this or any other controlled medication from any other doctor or facility: No Ordering provider: Dr. Conde Date of last office visit: 04.09.2023 Date of next office visit: 07.17.2023 Date of last refill: (see medication tab): 04.09.2023 Updated/Validated preferred pharmacy: Yes Patient instructed to contact the pharmacy prior to picking up the medication: Yes [facility] [id number] Telephone encounter Note* Telephone Encounter - Jennifer Jensen MA - 03/26/2023 4:34 PM EDT Tried to call patient to let her know all her scripts were sent to the pharmacy, but patient did not answer phone, phone just kept ringing and could not leave a message. [facility] [id number] Miscellaneous Notes* Telephone Encounter - Jennifer Jensen MA - 03/26/2023 4:34 PM EDT Tried to call patient to let her know all her scripts were sent to the pharmacy, but patient did not answer phone, phone just kept ringing and could not leave a message. * Telephone Encounter - Kitty Spence - 03/26/2023 4:23 PM EDT Name of caller: Hu Contact phone number: [phone] Relationship to Patient: [facility] Pharmacy Provider: Elton Practice: [facility] Chief Complaint/Reason for Call: pt called pharmacy stating she is completely out of the 5 rx's called in earlier today, [facility] deliver rx's to pt's homes, states the truck is leaving tonight at 6pm and want to know if the rx's can be approved so they dont miss that truck. Best time of day caller can be reached: any Patient advised that office/PCP has 24-48 business hours to return their call: No * Telephone Encounter - Jennifer Jensen MA - 03/26/2023 3:48 PM EDT Rx loaded documented in this encounterSUniversity Hospitals Conneaut Medical [id number] Telephone encounter Note* Telephone Encounter - Kitty Spence - 03/26/2023 4:23 PM EDT Name of caller: Hu Contact phone number: [phone] Relationship to Patient: [facility] Pharmacy Provider: Elton Practice: [facility] Chief Complaint/Reason for Call: pt called pharmacy stating she is completely out of the 5 rx's called in earlier today, [facility] deliver rx's to pt's homes, states the truck is leaving tonight at 6pm and want to know if the rx's can be approved so they dont miss that truck. Best time of day caller can be reached: any Patient advised that office/PCP has 24-48 business hours to return their call: No [facility] [id number] Telephone encounter Note* Telephone Encounter - Jennifer Jensen MA - 03/26/2023 3:48 PM EDT Rx loaded [facility] [id number] History of Present illness Narrative* Wayne Conde DO - 01/09/2023 12:20 PM EST Images from the original note were not included. [facility] [address] [address] Visit type: Established Patient Reason for Visit: Follow-up (3 month med check) Assessment / Plan: Farzana was seen today for follow-up. Diagnoses and all orders for this visit: Neuropathy (Primary) Comments: Stable, continue gabapentin, OARRS report done. Discussed risk and benefits of rx with her . 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 Other orders - albuterol 108 (90 Base) MCG/ACT inhaler; Inhale 2 puffs every 6 hours as needed for wheezing or shortness of breath. - atorvastatin (Lipitor) 10 MG tablet; Take 1 tablet (10 mg) by mouth Nightly for 30 doses. - clopidogrel (Plavix) 75 MG tablet; TAKE ONE TABLET AT 5PM - donepezil (Aricept) 5 MG tablet; Take 1 tablet (5 mg) by mouth Nightly. - fluticasone (Flovent) 220 MCG/ACT inhaler; Inhale 2 puffs 2 times daily. - gabapentin (Neurontin) 300 MG capsule; Take 2 capsules (600 mg) by mouth 2 times daily for 120 doses. - isosorbide mononitrate ER (Imdur) 60 MG 24 hr tablet; Take 1 tablet (60 mg) by mouth every morning. - levothyroxine (Synthroid, Levoxyl) 25 MCG tablet; Take 1 tablet (25 mcg) by mouth every morning. - metoprolol succinate XL (Toprol-XL) 50 MG 24 hr tablet; Increase to 50 mg q day - mirtazapine (Remeron) 7.5 MG tablet; Decrease to 7.5 mg at HS - pantoprazole (ProtoNix) 40 MG EC tablet; CHANGE TO ONE EACH EVENING BEFORE BEDTIME - Spiriva HandiHaler 18 MCG inhalation capsule; Place 1 capsule (18 mcg) into inhaler and inhale daily. - sucralfate (Carafate) 1 g tablet; Take 1 tablet (1 g) by mouth 4 times daily (before meals and nightly). - loratadine (Claritin) 10 MG tablet; Take 1 tablet (10 mg) by mouth every morning. - omega-3 (Fish Oil) 1000 MG capsule; TAKE THREE CAPSULES IN THE MORNING - guaiFENesin (Mucinex) 600 MG 12 hr tablet; Take 2 tablets (1,200 mg) by mouth 2 times daily. - ergocalciferol (Vitamin D2) 1.25 MG (75941 UT) capsule; TAKE 1 CAPSULE BY MOUTH ONE TIME PER WEEK - Aspirin Low Dose 81 MG EC tablet; Take 1 tablet (81 mg) by mouth every morning. Subjective: Patient ID: Farzana Herron is a 82 y.o. female. HPI hypertensive patient with heart disease and heart failure and mild dementia presents with her . She has been compliant with many meds. There is no recent angina or heart failure. Has good appetite. No agitation or somnolence. Denies abdominal pain or change in bowels or bladder. No recent falls. Of note she is on gabapentin for chronic thoracic and lumbar pain with occasional sciatica.Her been very good and delegating her meds. Review of Systems denies headache cough phlegm or fever. No use of nitro. Has deferred seeing cardiology. Denies dyspnea PND orthopnea edema or claudication. No heartburn recently. No melena or blood. Good appetite. No bowel changes. No dysuria hematuria incontinence. No change in low back pain or arthralgias. No agitation or sadness according to her . Allergies Allergen Reactions Codeine Other reaction(s): GI Upset Per patient - unknown reaction Current Outpatient Medications on File Prior to Visit Medication Sig Dispense Refill acetaminophen (Tylenol) 325 MG tablet Take 650 mg by mouth. Calcium Carb-Cholecalciferol (Oyster Shell Calcium w/D) 500-5 MG-MCG tablet TAKE 2 TABLETS BY MOUTHEVERY MORNING (BEFORE BREAKFAST) Calcium Carbonate-Vitamin D (calcium-vitamin D) 500-200 MG-UNIT tablet TAKE 2 TABLETS BY MOUTH EVERY MORNING (BEFORE BREAKFAST) [DISCONTINUED] albuterol 108 (90 Base) MCG/ACT inhaler Inhale 2 puffs every 6 hours as needed. [DISCONTINUED] Aspirin Low Dose 81 MG EC tablet Take 81 mg by mouth every morning. [DISCONTINUED] atorvastatin (Lipitor) 10 MG tablet Take 1 tablet (10 mg) by mouth Nightly for 30 doses. 30 tablet 5 [DISCONTINUED] clopidogrel (Plavix) 75 MG tablet TAKE ONE TABLET AT 5PM 30 tablet 5 [DISCONTINUED] donepezil (Aricept) 5 MG tablet Take 1 tablet (5 mg) by mouth Nightly. 30 tablet 5 [DISCONTINUED] ergocalciferol (Vitamin D2) 1.25 MG (20470 UT) capsule TAKE 1 CAPSULE BY MOUTH ONE TIME PER WEEK [DISCONTINUED] fluticasone (Flovent) 220 MCG/ACT inhaler Inhale 2 puffs in the morning and 2 puffs before bedtime. 12 g 5 [DISCONTINUED] gabapentin (Neurontin) 300 MG capsule Take 2 capsules (600 mg) by mouth in the morning and 2 capsules (600 mg) before bedtime. Do all this for 120 doses. 120 capsule 2 [DISCONTINUED] guaiFENesin (Mucinex) 600 MG 12 hr tablet Take 2 tablets by mouth in the morning and2 tablets before bedtime. [DISCONTINUED] isosorbide mononitrate ER (Imdur) 60 MG 24 hr tablet Take 1 tablet (60 mg) by mouth every morning. 30 tablet 5 [DISCONTINUED] levothyroxine (Synthroid, Levoxyl) 25 MCG tablet Take 1 tablet (25 mcg) by mouth every morning. 30 tablet 5 [DISCONTINUED] loratadine (Claritin) 10 MG tablet Take 10 mg by mouth every morning. [DISCONTINUED] metoprolol succinate XL (Toprol-XL) 50 MG 24 hr tablet Increase to 50 mg q day 30 tablet 5 [DISCONTINUED] mirtazapine (Remeron) 7.5 MG tablet Decrease to 7.5 mg at HS 30 tablet 5 [DISCONTINUED] omega-3 (Fish Oil) 1000 MG capsule TAKE THREE CAPSULES IN THE MORNING [DISCONTINUED] pantoprazole (ProtoNix) 40 MG EC tablet CHANGE TO ONE EACH EVENING BEFORE BEDTIME 30tablet 5 [DISCONTINUED] Spiriva HandiHaler [address] 1 capsule (18 mcg) into inhaler and inhale in the morning. 30 capsule 5 [DISCONTINUED] sucralfate (Carafate) 1 g tablet Take 1 tablet (1 g) by mouth 4 times daily (before meals and nightly). 120 tablet 5 No current facility-administered medications on file prior to visit. 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 COPD (chronic obstructive pulmonary disease) (HCC) Lumbar degenerative disc disease Alzheimer's disease, unspecified (CODE) (HCC) Chronic systolic (congestive) heart failure (HCC) Carotid artery disease without cerebral infarction (HCC) Irritable bowel syndrome Psoriasis Osteoporosis with pathological fracture Thoracic compression fracture (HCC) Anxiety GERD (gastroesophageal reflux disease) OAB (overactive bladder) Collagenous colitis Neuropathy Uzair ulcer Renal insufficiency LV dysfunction Hypercholesterolemia Hypothyroid Social History Tobacco Use Smoking status: Former Packs/day: 0.00 Types: Cigarettes Quit date: 06/08/1990 Years since quittin.6 Smokeless tobacco: Never Substance Use Topics Alcohol use: No Alcohol/week: 0.0 standard drinks Past Surgical History: Procedure Laterality Date ATRIAL ABLATION SURGERY 2001 BALLOON ANGIOPLASTY, ARTERY 06/[address] Martinez CARPAL TUNNEL RELEASE Bilateral 1987 CATARACT EXTRACTION Bilateral 12/09 [facility] COLONOSCOPY 10/2018 [facility]- neg- ? due COLONOSCOPY 08/2011 chronic diarrhea ([facility]) FOOT SURGERY HIATAL HERNIA REPAIR 10/2011 gastroplexy per [employer] ULNAR TUNNEL RELEASE Right 2002 UPPER GASTROINTESTINAL ENDOSCOPY 09/2011 GERD-uzair ulcer - s/p gastroplexy per Dr. Lamb 11/03 --neg CT abd 03/06 rech 10/07 ([facility]) UPPER GASTROINTESTINAL ENDOSCOPY 10/28/2016 [facility]- esoph stenosis and HH with reflux Family History Problem Relation Name Age of Onset Cancer Mother age 60 ? met bone CA, Heart disease Father age 70 No Known Problems Sister No Known Problems Sister Diabetes type II Sister COPD Sister meet heraclio Diabetes Sister No Known Problems Sister Shira alive age 85 Liver disease Brother age 50 of ETOH abuse No Known Problems Brother Philip Objective: BP 118/72 Pulse 68 Temp 36.2 C (97.1 F) (Temporal) Ht 4' 11 (1.499 m) Wt 124 lb (56.2 kg) SpO2 96% BMI 25.04 kg/m Physical Exam very alert and cooperative. No change in memory loss. Somewhat distant answers but she was aware of the surroundings and my name. Well- hydrated. Normal eardrums and oropharynx. No thyroid lesions, JVD adenopathy carotid bruits or neck masses. Reflexes physiologic. There is no motor orsensory loss of the lower or upper extremities. Fair range of motion of her hips. Toes downgoing and no clonus. Her gait is fair using her cane. Heart is regular without gallops or murmurs. Lungs are clear. Abdomen soft scaphoid without pain hepatosplenomegaly masses or bruits. Good bowel sounds. No ascites. [facility] Diagnosis Pulmonary emphysema, unspecified emphysema type (HCC) Hemoptysis Hemoptysis, unspecified documented in this encounter [facility] Work Phone: Evaluation note* Diagnosis Other osteoarthritis of spine, thoracic region [facility] Diagnosis Alzheimer's disease, unspecified (CODE) (HCC)- Primary Essential hypertension Unspecified essential hypertension Hypercholesterolemia Pure hypercholesterolemia Acquired hypothyroidism Unspecified hypothyroidism Neuropathy Mononeuritis of unspecified site 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, unspecified vessel or lesion type [facility]* Diagnosis Syncope and collapse- Primary Syncope and collapse Lung nodule Other diseases of lung, not elsewhere classified Dehydration Colitis Other and unspecified noninfectious gastroenteritis and colitis Hypokalemia Hypopotassemia Syncope, unspecified syncope type Cognitive deficits Unspecified persistent mental disorders due to conditions classified elsewhere [facility]* Diagnosis Lumbar degenerative disc disease- Primary Pulmonary emphysema, unspecified emphysema type (HCC) Chronic systolic (congestive) heart failure (HCC) documented [facility] Diagnosis Essential hypertension- Primary Unspecified essential hypertension Alzheimer's disease, unspecified (CODE) (HCC) Chronic systolic (congestive) heart failure (HCC) Chronic bronchitis, unspecified chronic bronchitis type (HCC) Hypercholesterolemia Pure hypercholesterolemia Lumbar degenerative disc disease 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, unspecified vessel or lesion type Acquired hypothyroidism Unspecified hypothyroidism documented [facility]* Diagnosis Chronic systolic (congestive) heart failure (HCC)- Primary Chronic bronchitis, unspecified chronic bronchitis type (HCC) Other osteoarthritis of spine, thoracic region Alzheimer's disease, unspecified (CODE) (HCC) [facility] Diagnosis 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, unspecified vessel or lesion type- Primary History of myocardial infarction Alzheimer's disease, unspecified (CODE) (HCC) Hypercholesterolemia Pure hypercholesterolemia Acquired hypothyroidism Unspecified hypothyroidism Chronic bronchitis, unspecified chronic bronchitis type (HCC) Neuropathy Mononeuritis of unspecified site Anxiety Anxiety state, unspecified Scalp hematoma, initial encounter [facility] Diagnosis Essential hypertension- Primary Unspecified essential hypertension Alzheimer's disease, unspecified (CODE) (HCC) 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, unspecified vessel or lesion type Chronic bronchitis, unspecified chronic bronchitis type (HCC) Chronic systolic (congestive) heart failure (HCC) Compression fracture of thoracic vertebra, unspecified thoracic vertebral level, sequela Hypercholesterolemia Pure hypercholesterolemia Acquired hypothyroidism Unspecified hypothyroidism [facility]* Diagnosis Neuropathy- Primary Mononeuritis of unspecified site Essential hypertension Unspecified essential hypertension Hypercholesterolemia Pure hypercholesterolemia Chronic systolic (congestive) heart failure (HCC) 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, unspecified vessel or lesion type Acquired hypothyroidism Unspecified hypothyroidism Alzheimer's disease, unspecified (CODE) (HCC) documented [facility]* Diagnosis Essential hypertension- Primary Unspecified essential hypertension Alzheimer's disease, unspecified (CODE) (HCC) Chronic systolic (congestive) heart failure (HCC) Gastroesophageal reflux disease without esophagitis Esophageal reflux Chronic bronchitis, unspecified chronic bronchitis type (HCC) 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, unspecified vessel or lesion type Neuropathy Mononeuritis of unspecified site Hypercholesterolemia Pure hypercholesterolemia Irregular heart rhythm [facility]* Diagnosis Essential hypertension- Primary Unspecified essential hypertension Alzheimer's disease, unspecified (CODE) (HCC) Chronic systolic (congestive) heart failure (HCC) Gastroesophageal reflux disease without esophagitis Esophageal reflux Chronic bronchitis, unspecified chronic bronchitis type (HCC) 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, unspecified vessel or lesion type Neuropathy Mononeuritis of unspecified site Hypercholesterolemia Pure hypercholesterolemia Irregular heart rhythm Normochromic normocytic anemia [facility] ([facility]ative[facility] Consultation (Routine) - Pending Review Specialty Diagnoses / Procedures Referred By Conteric t Referred To Contact Geriatric Medicine Diagnoses Cognitive deficits Procedures DE OFFICE/OUTPATIENT [facility] 60 MINUTES Zunilda Diamond APRN - SAND OPERATOR [address] [address] [facility] [address] [place] [address] Referral ID Status Reason Start Date Expiration Date Visits Requested Visits Authorized [id number] Pending Review Specialty Services Required 01/19/2024 01/18/2025 1 1 Scheduling Instructions IPC follow up for cognition [facility] Summary Purpose Family History No Family History Records Found Relationship Condition Age at Onset Recorded Date/T briana mother Malignant neoplasm Unknown father Cardiac disease Unknown sister Diabetes mellitus Unknown Chronic obstructive pulmonary disease Unk nown Advance Directives No Advanced Directives Records FoundDocuments on File Type Date Recorded 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 DNR (Do Not Resuscitate) 11/28/2016 Date Activated Date Inactivated Comments 01/16/2024 1:41 PM 01/21/2024 6:50 PM Documents on File Type Date Recorded 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 ACP-Advance Directive ACP-Do Not Resuscitate 12/05/2016 2:05 PM ACP-Power of Highway Commissioner Latest Code Status on File Code Status Date Activated Date Inactivated Comments Full Code 03/03/2018 5:01 PM 03/05/2018 7:50 PM DNR-CCA 11/28/2016 10:59 AM 12/03/2016 5:26 PM Full Code 11/28/2016 3:26 AM 11/28/2016 10:59 AM DNR-CC 11/08/2016 4:29 PM 11/12/2016 8:25 PM Dis cussed with Pt and Family, refer to progress note Full Code 11/08/2016 4:44 AM 11/08/2016 4:29 PM Documents on File Type Date Recorded 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 Advance Directives and Living Will Power of Highway Commissioner Documents on File Type Date Recorded 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 No January 02, 2025 9:34pm Living Will No January 09, 7:40am Do you have a Healthcare Power of Highway Commissioner? No January 09, 2025 7:40am Living Will No January 23, 2025 11:46am Do you have a Healthcare Power of Highway Commissioner? No January 23, 2025 11:46am Reason for Referral Specialty Diagnoses / Procedures Referred By Sukh t Referred To Contact Home Health Services Diagnoses Chronic systolic (congestive) heart failure (HCC) Chronic bronchitis, unspecified chronic bronchitis type (HCC) Other osteoarthritis of spine, thoracic region Alzheimer's disease, unspecified (CODE) (HCC) Procedures DE OFFICE/OUTPATIENT NEW HIGH MDM 60 MINUTES Wayne Conde F, DO [address] [facility] [address] [place] [address] Referral ID Status Reason Start Date Expiration Date Visits Requested Visits Authorized [id number] Pending Review Specialty Services Required 02/05/2024 01/30/[phone] Chief Complaint and Reason for Visit Chief Complaint Admit Date LEFT SHOULDER PAIN CONCERN FOR FRACTURE January 02, 2025 8:48pm LEFT SHOULDER PAIN CONCERN FOR FRACTURE January 03, 2025 7:51pm LEFT SHOULDER PAIN CONCERN FOR FRACTURE January 04, 2025 3:38pm HYPOXIA RECURRENT FALLS DEBILITY Februar y 2024 5:23am HYPOXIA RECURRENT FALLS DEBILITY Februar y 2024 5:49am HYPOXIA RECURRENT FALLS DEBILITY Februar y 2024 4:28pm HYPOXIA RECURRENT FALLS DEBILITY Februar y 2024 4:19pm HYPOXIA RECURRENT FALLS DEBILITY Februar y 2024 11:05am LABWORK January 13, 2025 5:00am CORRECTION LAB WORK January 17 5:00am CORRECTION LAB WORK January 20 4:00am SOB January 23, 2025 10:3 7am CORRECTION LAB WORK January 24, 2025 5: 00am CORRECTION LAB WORK January 28, 2025 5: 00am CORRECTION LAB WORK February 01, 2025 5 :00am LORRIE LUNG MASS February 16, 2025 9:0 9am Reason for Visit Admit Date Lung nodule February 16, 2025 9:0 9am Alzheimer's dementia February 16, 2025 9: 09am COPD (chronic obstructive pulmonary dise ase) February 16, 2025 9:09am Hypoxia February 16, 2025 9:0 9am Chief Complaint Admit Date LEFT SHOULDER PAIN CONCERN FOR FRACTURE January 02, 2025 8:48pm LEFT SHOULDER PAIN CONCERN FOR FRACTURE January 03, 2025 7:51pm LEFT SHOULDER PAIN CONCERN FOR FRACTURE January 04, 2025 3:38pm HYPOXIA RECURRENT FALLS DEBILITY uar y 2024 5:23am HYPOXIA RECURRENT FALLS DEBILITY uar y 2024 5:49am HYPOXIA RECURRENT FALLS DEBILITY uar y 2024 4:28pm HYPOXIA RECURRENT FALLS DEBILITY y 2024 4:19pm HYPOXIA RECURRENT FALLS DEBILITY r y 2024 11:05am LABWORK January 13, 2025 5:00am CORRECTION LAB WORK January 17 5:00am CORRECTION LAB WORK January 20 4:00am SOB January 23, 2025 10:3 7am CORRECTION LAB WORK January 24, 2025 5: 00am CORRECTION LAB WORK January 28, 2025 5: 00am CORRECTION LAB WORK February 01, 2025 5 :00am LORRIE LUNG MASS February 16, 2025 9:0 9am ABN EKG (SWCC) March 09, 2025 9:3 1am CORRECTION LAB WORK March 24, 2025 5:00 am Reason for Visit Admit Date Lung nodule February 16, 2025 9:0 9am Alzheimer's dementia February 16, 2025 9: 09am COPD (chronic obstructive pulmonary dise ase) February 16, 2025 9:09am Hypoxia February 16, 2025 9:0 9am Coronary artery disease March 09, 2025 9:31am Dementia March 09, 2025 9:3 1am HLD (hyperlipidemia) March 09, 2025 9: 31am Hypertension March 09, 2025 9:3 1am Additional Source Comments INFORMATION SOURCE (unrecogn ized section and content) DATE CREATED AUTHOR 05/15/2018 [facility] DATE CREATED AUTHOR AUTHOR'S ORGANIZ ATION 05/15/2018 [facility] DATE CREATED AUTHOR AUTHOR'S ORGANIZ ATION 03/01/2021 [facility] DATE CREATED AUTHOR AUTHOR'S ORGANIZ ATION 04/22/2025 [facility] DATE CREATED AUTHOR AUTHOR'S ORGANIZ ATION 06/11/2025 [facility] Reason for Visit (unrecogniz ed section and content) Reason Onset Date Comments Med Refill 03/26/2023 Reason Onset Date Comments Med Refill 05/09/2023 Reason Onset Date Comments Med Refill 05/26/2023 Reason Comments Follow-up 3 month med check Reason Onset Date Comments Medication Problem 07/18/2023 Reason Onset Date Comments requested Rx refill? 08/01/2023 Reason Comments Med Refill Reason Comments Fall Pt comes to the Ed t [facility] due to having a fall at home pt states she does not remember the incident pt does not know the year however can state current month and is alert to person and place. Vomiting Specialty Diagnoses / Procedures Referred By Contac t Referred To Contact Diagnoses Syncope and collapse Dehydration Hypokalemia Colitis Lung nodule Procedures . Re Padilla MD [address] [facility], [facility] [address] [place] [address] [place] [address] Referral ID Status Reason Start Date Expiration Date Visits Re quested Visits Authorized [id number] 1 Reason Onset Date Comments Request For Order(s) 01/23/2024 Rollator Reason Comments Follow-up 3 month med check Reason Onset Date Comments Referral 02/05/2024 Home Nursing Reason Comments Follow-up Med check Fall Hit head has a bump on back of head has no idea what happened blacked out. Reason Onset Date Comments Med Refill 07/12/2024 Reason Onset Date Comments Med Refill 08/26/2024 Reason Comments Follow-up Med check Flu Vaccine Patient is agreeable to have flu vaccine in the office Reason Comments Follow-up Med Check Fall Patient has recent f alls Reason Onset Date Comments Med Refill 12/31/2024 Reason Onset Date Comments Appointment 05/02/2025 RAJ appt need to scheduled Reason Onset Date Comments Other 05/03/2025 Reason Onset Date Comments Appointment Request 04/29/2025 Reason Onset Date Comments Referral 04/29/2025 Care Teams (unrecognized sec tion and content) Sr. Logistics Analyst Relationship Specialty Start Date End Date Wayne Conde, DO [address] [place] [address] PCP - General 04/24/19 Sr. Logistics Analyst Relationship Specialty Start Date End Date Wayne Conde, DO [address] [place] [address] PCP - General 04/24/19 Sr. Logistics Analyst Relationship Specialty Start Date End Date Wayne Conde, DO [address] [place] [address] PCP - General 04/24/19 Sr. Logistics Analyst Relationship Specialty Start Date End Date Wayne Conde, DO [address] [place] [address] PCP - General 04/24/19 Sr. Logistics Analyst Relationship Specialty Start Date End Date Wayne Conde, DO [address] [place] [address] PCP - General 04/24/19 Sr. Logistics Analyst Relationship Specialty Start Date End Date Wayne Conde, DO [address] [place] [address] PCP - General 04/24/19 Sr. Logistics Analyst Relationship Specialty Start Date End Date Wayne Conde, DO [address] [place] [address] PCP - General 04/24/19 Sr. Logistics Analyst Relationship Specialty Start Date End Date Wayne Conde, DO [address] [place] [phone] PCP - General 04/24/19 Sr. Logistics Analyst Relationship Specialty Start Date End Date Wayne Conde, DO [address] [place] [address] PCP - General 04/24/19 Sr. Logistics Analyst Relationship Specialty Start Date End Date Wayne Conde, DO [address] [place] [phone] PCP - General 04/24/19 Sr. Logistics Analyst Relationship Specialty Start Date End Date Wayne Conde, DO [address] [place] [phone] PCP - General 04/24/19 Sr. Logistics Analyst Relationship Specialty Start Date End Date Wayne Conde, DO [address] [place] [phone] PCP - General 04/24/19 Sr. Logistics Analyst Relationship Specialty Start Date End Date Wayne Conde, DO [address] [place] [phone] PCP - General 04/24/19 Sr. Logistics Analyst Relationship Specialty Start Date End Date Wayne Conde, DO [address] [place] [phone] PCP - General 04/24/19 Sr. Logistics Analyst Relationship Specialty Start Date End Date Wayne Conde, DO [address] [place] [phone] PCP - General 04/24/19 Sr. Logistics Analyst Relationship Specialty Start Date End Date NyasiaWayne justice, DO [address] [place] [phone] PCP - General 04/24/19 Sr. Logistics Analyst Relationship Specialty Start Date End Date NyasiaWayne justice, DO [address] [place] [address] PCP - General 04/24/19 Sr. Logistics Analyst Relationship Specialty Start Date End Date NyasiajamarirosinaWayne, DO [address] [place] [address] PCP - General 04/24/19 Sr. Logistics Analyst Relationship Specialty Start Date End Date Wayne Conde, DO [address] [place] [id number] PCP - General 04/24/19 Sr. Logistics Analyst Relationship Specialty Start Date End Date Wayne Conde, [place] [facility] [place] [address] PCP - General 04/24/19 Sr. Logistics Analyst Relationship Specialty Start Date End Date NyasiajamarirosinaWayne, DO [address] [place] [address] PCP - General 04/24/19 Sr. Logistics Analyst Relationship Specialty Start Date End Date NyasiaWayne justice, DO [address] [place] [phone] PCP - General 04/24/19 Sr. Logistics Analyst Relationship Specialty Start Date End Date Wayne Conde DO [address] [place] [address] PCP - General 04/24/19 Team Status: Active Member Role Status Dates Dr. Wayne Conde DO Primary Care Provider Active Team Status: Inactive Member Role Status Dates Frederic Garcia MD Emergency Provider Active Star t: January 02, 2025 End: January 04, 2025 Dr. Wayne Conde DO Primary Care Provider Active Start: January 02, 2025 End: January 04, 2025 Dr. Aaliyah Lafleur MD Admit Provider Active Star t: January 02, 2025 End: January 04, 2025 Dr. Aaliyah Lafleur MD Other Provider Active Star t: January 02, 2025 End: January 04, 2025 Dr. Priyank Bauer DO Attending Provider Active Start: January 02, 2025 End: January 04, 2025 Team Status: Active Member Role Status Dates Frederic Garcia MD Emergency Provider Active Star t: January 03, 2025 Dr. Wayne Conde DO Primary Care Provider Active Start: January 03, 2025 Dr. Aaliyah Lafleur MD Admit Provider Active Star t: January 03, 2025 Dr. Aaliyah Lafleur MD Other Provider Active Star t: January 03, 2025 Dr. Priyank Bauer DO Attending Provider Active Start: January 03, 2025 Dr. Priyank Bauer DO Other Provider Active S tart: January 03, 2025 Team Status: Active Member Role Status Dates Frederic Garcia MD Emergency Provider Active Star t: January 04, 2025 Dr. Wayne Conde DO Primary Care Provider Active Start: January 04, 2025 Dr. Aaliyah Lafleur MD Admit Provider Active Star t: January 04, 2025 Dr. Aaliyah Lafleur MD Other Provider Active Star t: January 04, 2025 Dr. Priyank Bauer DO Attending Provider Active Start: January 04, 2025 Dr. Priyank Bauer DO Other Provider Active S tart: January 04, 2025 Team Status: Active Member Role Status Dates Dr. Wayne Conde DO Primary Care Provider Active Start: January 09, 2025 Dr. Jaxson Scott , DO Emergency Provider Active Start: January 09, 2025 Dr. Maynor Costa , DO Admit Provider Active Start: January 09, 2025 Dr. Maynor Costa , DO Attending Provider Active Start: January 09, 2025 Dr. Maynor Costa , DO Other Provider Active Start: January 09, 2025 Dr. Vincent Cool , DO Other Provider Active Star t: January 09, 2025 Team Status: Inactive Member Role Status Dates Dr. Wayne Conde , DO Primary Care Provider Active Start: January 09, 2025 End: January 12, 2025 Dr. Jaxson Scott , DO Emergency Provider Active Start: January 09, 2025 End: January 12, 2025 Dr. Maynor Costa , DO Admit Provider Active Start: January 09, 2025 End: January 12, 2025 Dr. Maynor Costa , DO Other Provider Active Start: January 09, 2025 End: January 12, 2025 Dr. Tan Triplett MD Attending Provider Active Start: January 09, 2025 End: January 12, 2025 Dr. Vincent Cool , DO Other Provider Active Star t: January 09, 2025 End: January 12, 2025 Team Status: Active Member Role Status Dates Dr. Wayne Conde , DO Primary Care Provider Active Start: January 10, 2025 Dr. Jaxson Scott , Emergency Provider Active Start: January 10, 2025 Dr. Maynor Costa , DO Admit Provider Active Start: January 10, 2025 Dr. Maynor Costa , DO Other Provider Active Start: January 10, 2025 Dr. Tan Triplett MD Attending Provider Active Start: January 10, 2025 Dr. Tan Triplett MD Other Provider Active Sta rt: January 10, 2025 Dr. Vincent Cool , DO Other Provider Active Star t: January 10, 2025 Team Status: Active Member Role Status Dates Dr. Wayne Conde , DO Primary Care Provider Active Start: January 11, 2025 Dr. Jaxson Scott , DO Emergency Provider Active Start: January 11, 2025 Dr. Maynor Costa , DO Admit Provider Active Start: January 11, 2025 DrDaniel Costa DO Other Provider Active Start: January 11, 2025 Dr. Tan Triplett MD Attending Provider Active Start: January 11, 2025 Dr. Tan Triplett MD Other Provider Active Sta rt: January 11, 2025 Dr. Vincent Cool DO Other Provider Active Star t: January 11, 2025 Team Status: Active Member Role Status Dates Dr. Wayne Conde DO Primary Care Provider Active Start: January 12, 2025 Dr. Jaxson Scott , Emergency Provider Active Start: January 12, 2025 Dr. Maynor Costa DO Admit Provider Active Start: January 12, 2025 Dr. Maynor Costa DO Other Provider Active Start: January 12, 2025 Dr. Tan Triplett MD Attending Provider Active Start: January 12, 2025 Dr. Tan Triplett MD Other Provider Active Sta rt: January 12, 2025 Dr. Vincent Cool DO Other Provider Active Star t: January 12, 2025 Team Status: Active Member Role Status Dates Dr. Wayne Conde DO Primary Care Provider Active Start: January 13, 2025 Dr. Leena GARCIA MD Attending Provider Active Start: January 13, 2025 Team Status: Active Member Role Status Dates Dr. Wayne Conde DO Primary Care Provider Active Start: January 17, 2025 Dr. Leena GARCIA MD Attending Provider Active Start: January 17, 2025 Team Status: Active Member Role Status Dates Dr. Wayne Conde DO Primary Care Provider Active Start: January 20, 2025 Dr. Leena GARCIA MD Attending Provider Active Start: January 20, 2025 Dr. Leena GARCIA MD Referring Provider Active Start: January 20, 2025 Team Status: Inactive Member Role Status Dates Dr. Wayne Conde DO Primary Care Provider Active Start: January 23, 2025 End: January 23, 2025 Frederic Garcia MD Attending Provider Active Star t: January 23, 2025 End: January 23, 2025 Frederic Garcia MD Emergency Provider Active Star t: January 23, 2025 End: January 23, 2025 Team Status: Active Member Role Status Dates Dr. Wayne Conde DO Primary Care Provider Active Start: January 24, 2025 Dr. Leena GARCIA MD Attending Provider Active Start: January 24, 2025 Team Status: Inactive Member Role Status Dates Dr. Wayne Conde DO Primary Care Provider Active Start: January 28, 2025 End: January 28, 2025 Dr. Leena GARCIA MD Attending Provider Active Start: January 28, 2025 End: January 28, 2025 Team Status: Active Member Role Status Dates Dr. Wayne Conde DO Primary Care Provider Active Start: February 01, 2025 Dr. Leena GARCIA MD Attending Provider Active Start: February 01, 2025 Team Status: Inactive Member Role Status Dates Dr. Wayne Conde DO Primary Care Provider Active Start: February 16, 2025 End: February 16, 2025 Dr. Wayne Conde DO Referring Provider Active Start: February 16, 2025 End: February 16, 2025 Jennifer Tolbert SINGEING TORCH OPERATOR, SINGEING TORCH OPERATOR-C Attending Provider Active Start: February 16, 2025 End: February 16, 2025 Team Status: Inactive Member Role Status Dates Dr. Wayne Conde DO Primary Care Provider Active Start: January 20, 2025 End: January 20, 2025 Dr. Leena GARCIA MD Attending Provider Active Start: January 20, 2025 End: January 20, 2025 Dr. Leena GARCIA MD Referring Provider Active Start: January 20, 2025 End: January 20, 2025 Team Status: Inactive Member Role Status Dates Dr. Wayne Conde DO Primary Care Provider Active Start: January 24, 2025 End: January 24, 2025 Dr. Leena GARCIA MD Attending Provider Active Start: January 24, 2025 End: January 24, 2025 Team Status: Inactive Member Role Status Dates Dr. Wayne Conde DO Primary Care Provider Active Start: February 01, 2025 End: February 01, 2025 Dr. Leena GARCIA MD Attending Provider Active Start: February 01, 2025 End: February 01, 2025 Team Status: Inactive Member Role Status Dates Dr. Wayne Conde DO Primary Care Provider Active Start: March 09, 2025 End: March 09, 2025 Dr. Wayne Conde DO Referring Provider Active Start: March 09, 2025 End: March 09, 2025 Dr. Adriel Charles MD Attending Provider Active S tart: March 09, 2025 End: March 09, 2025 Team Status: Inactive Member Role Status Dates Dr. Wayne Conde DO Primary Care Provider Active Start: March 24, 2025 End: March 24, 2025 Dr. Leena GARCIA MD Attending Provider Active Start: March 24, 2025 End: March 24, 2025 Sr. Logistics Analyst Relationship Specialty Start Date End Date Wayne Conde AbbeyDO [address] [place] [phone] PCP - General 04/24/19 Sr. Logistics Analyst Relationship Specialty Start Date End Date Wayne Conde AbbeyDO [address] [place] [phone] PCP - General 04/24/19 Sr. Logistics Analyst Relationship Specialty Start Date End Date Wayne Conde bAbeyDO [address] [place] [phone] PCP - General 04/24/19 Sr. Logistics Analyst Relationship Specialty Start Date End Date Wayne Conde Abbey [address] [place] [phone] PCP - General 04/24/19 Scheduled Active and Recently Administ ered Medications (unrecognized section and content) Medication Order 01/19/2024 01/20/2024 01/21/2024 acetaminophen (Tylenol) tablet 650 mg 650 mg, Oral, Every 8 hours, First dose on Fri01/19/24 at 0830, For 3 days, Maximum dose of acetaminophen is 4000 mg from all sources in 24 hours. 1019 (Given - Provider: Kannan Beavers RN)1721 (Given - Provider: Kannan Beavers RN) 0030 (Not Given - Provider: Dalila Robison LPN - Reason: Patient/family refused)0820 (Given - Provider: Nikki Calvillo LPN)1554 (Given - Provider: Nikki Calvillo LPN) 0030 (Not Given - Provider: Federico Sanford RN - Reason: Patient/family refused)0841 (Given - Provider: Nikki Calvillo LPN)1630 (Canceled Entry - Provider: Automatic Discharge Provider - Comment: Automatically canceled at discontinue of medication order) aspirin EC tablet 81 mg 81 mg, Oral, Every morning, First dose on 01/17/24 at 0900, Do not crush, chew, or split. 0806 (Given - Provider: Kannan Beavers RN) 0802 (Given - Provider: Nikki Calvillo LPN) 0904 (Given - Provider: Nikki Calvillo LPN) atorvastatin (Lipitor) tablet 80 mg 80 mg, Oral, Nightly, First dose (after last modification) on Fri01/19/24 at 2100 2124 (Given - Provider: Dalila Robison LPN) 215 (Given - Provider: Federico Sanford RN) clopidogrel (Plavix) tablet 75 mg 75 mg, Oral, Daily, First dose on 01/17/24 at 0900 0806 (Given - Provider: Kannan Beavers RN) 0823 (Given - Provider: Nikki Calvillo LPN) 0842 (Given - Provider: Nikki Calvillo LPN) cyanocobalamin (Vitamin B-12) tablet 1,000 mcg 1,000 mcg, Oral, Daily, First dose on Fri01/21/24 at 0900 0842 (Given - Provider: Nikki Calvillo LPN) donepezil (Aricept) tablet 5 mg 5 mg, Oral, Nightly, First dose on Fri01/16/24 at 2100 2124 (Given - Provider: Dalila Robison LPN) 215 (Given - Provider: Federico Sanford RN) enoxaparin (Lovenox) syringe 40 mg 40 mg, SubCUTAneous, Every 24 hours scheduled (Daily), First dose on Fri01/16/24 at 1345, Indication of Use: Prophylaxis-DVT/PE, Indications: Prophylaxis of Venous Thromboembolism 0806 (Given - Provider: Kannan Beavers RN) 0803 (Given - Provider: Nikki Calvillo LPN) 0843 (Given - Provider: Nikki Calvillo LPN) ergocalciferol (Vitamin D2) capsule 1.25 mg 1.25 mg, Oral, Weekly, First dose on 01/17/24 at 0900, Verify what day of the week patient takes prior to administration fluticasone (Flovent) 220 MCG/ACT inhaler 2 puff 2 puff, Inhalation, 2 times daily, First dose on Fri01/16/24 at 2100, Rinse mouth with water after use to reduce aftertaste and incidence of candidiasis. Do not swallow. 0812 (Given - Provider: Kannan Beavers RN)2100 (Not Given - Provider: Dalila Robison LPN - Reason: Patient/family refused) 0818 (Given - Provider: Nikki Calvillo LPN)2156 (Given - Provider: Federico Sanford RN) 0854 (Given - Provider: Nikki Calvillo LPN) gabapentin (Neurontin) capsule 200 mg 200 mg, Oral, 2 times daily, First dose on Fri01/19/24 at 2100 2124 (Given - Provider: Dalila Robison LPN) 0820 (Given - Provider: Nikki Calvillo LPN)2150 (Given - Provider: Federico Sanford RN) 0842 (Given - Provider: Nikki Calvillo LPN) isosorbide mononitrate ER (Imdur) 24 hr tablet 60 mg 60 mg, Oral, Every morning, First dose on 01/17/24 at 0900, Do not chew or crush ER tablets; may be divided in half. Due to insoluble matrix embedding, ER tablets that are scored may be split. 0806 (Given - Provider: Kannan Beavers RN) 0828 (Given - Provider: Nikki Calvillo LPN) 0842 (Given - Provider: Nikki Calvillo LPN) levothyroxine (Synthroid, Levoxyl) tablet 50 mcg 50 mcg, Oral, Every morning, First dose on 01/17/24 at 0900, Tube feeding (TF) interaction, obtain physician order to manage, recommend holding TF for 30 minutes before and after dose. 0806 (Given - Provider: Kannan Beavers RN) 0828 (Given - Provider: Nikki Calvillo LPN) 0842 (Given - Provider: Nikki Calvillo LPN) losartan (Cozaar) tablet 25 mg 25 mg, Oral, Daily, First dose on Fri01/19/24 at 0900 1019 (Given - Provider: Kannan Beavers RN) 0828 (Given - Provider: Nikki Calvillo LPN) 0843 (Given - Provider: Nikki Calvillo LPN) melatonin tablet 3 mg 3 mg, Oral, Nightly, First dose (after last modification) on Fri01/19/24 at 2100 2124 (Given - Provider: Dalila Robison LPN) 215 (Given - Provider: Federico Sanford RN) metoprolol tartrate (Lopressor) tablet 50 mg 50 mg, Oral, 3 times daily, First dose (after last modification) on Fri01/19/24 at 0900 0812 (Given - Provider: Kannan Beavers RN)1400 (Given - Provider: Kannan Beavers RN)2124 (Given - Provider: Dalila Robison LPN) 0805 (Given - Provider: Nikki Calvillo LPN)1456 (Given - Provider: Nikki Calvillo LPN)2150 (Given - Provider: Federico Sanford RN) 0842 (Given - Provider: Nikki Calvillo LPN)1400 (Canceled Entry - Provider: Automatic Discharge Provider - Comment: Automatically canceled at discontinue of medication order) mirtazapine (Remeron) tablet 7.5 mg 7.5 mg, Oral, Nightly, First dose on Fri01/16/24 at 2100 2124 (Given - Provider: Dalila Robison LPN) 2150 (Given - Provider: Federico Sanford RN) pantoprazole (ProtoNix) EC tablet 40 mg 40 mg, Oral, Daily before breakfast, First dose on Fri01/17/24 at 0700, Do not crush, chew, or split. 0555 (Given - Provider: Dalila Robison LPN) 0700 (Not Given - Provider: Dalila Robison LPN - Reason: Patient/family refused) 0612 (Given - Provider: Federico Sanford RN) tiotropium (Spiriva Respimat) 2.5 MCG/ACT inhaler 2 puff 2 puff, Inhalation, Daily, First dose on 01/17/24 at 0900 0812 (Given - Provider: Kannan Beavers RN) 0814 (Given - Provider: Nikki Calvillo LPN) 0855 (Given - Provider: Nikki Calvillo LPN) PRN Medication Order 01/19/2024 01/20/2024 01/21/2024 acetaminophen (Tylenol) suppository 650 mg(Linked Group 1) 650 mg, Rectal, Every 6 hours PRN, mild pain (1-3), fever, For temp greater than 100.4 F (38 C), Starting on Fri01/16/24 at 1339, Administer if oral route cannot be used. Maximum dose of acetaminophen is 4000 mg from all sources in 24 hours. acetaminophen (Tylenol) tablet 650 mg(Linked Group 1) 650 mg, Oral, Every 6 hours PRN, mild pain (1-3), fever, For temp greater than 100.4 F (38 C), Starting on Fri01/16/24 at 1339, Maximum dose of acetaminophen is 4000 mg from all sources in 24 hours. albuterol 108 (90 Base) MCG/ACT inhaler 2 puff 2 puff, Inhalation, Every 6 hours PRN, wheezing, shortness of breath, Starting on Fri01/16/24 at 1712 haloperidol (Haldol) tablet 0.5 mg 0.5 mg, Oral, Every 6 hours PRN, agitation, Starting on Fri01/19/24 at 1000, For 4 doses, Second line if unable to take Seroquel PRN For Agitation ondansetron (Zofran) injection 4 mg(Linked Group 2) 4 mg, IntraVENous, Every 6 hours PRN, nausea, vomiting, Starting on Fri01/16/24 at 1339, 1st Line. Give IV if patient is unable to take orally. If inadequate response within 60 minutes, proceed to next-line agent or contact provider if no further options ordered. ondansetron ODT (Zofran-ODT) disintegrating tablet 4 mg(Linked Group 2) 4 mg, Oral, Every 8 hours PRN, nausea, vomiting, Starting on Fri01/16/24 at 1339, 1st Line. If inadequate response within 60 minutes, proceed to next-line agent or contact provider if no further options ordered. Patient should allow tablet to dissolve on tongue. Do not remove from blister pack until just before administering. perflutren protein A microsphere (Optison) 3 mL in sodium chloride (PF) 0.9 % 10 mL IV syringe 0-10 mL, IntraVENous, IMG once PRN, other, Suboptimal echo image, Starting on Fri01/17/24 at 0707, For 1 dose, CV Procedural Medications, Administer via slow IVP for suboptimal echocardiogram enhancement. May administer as divided doses to reach optimal image enhancement polyethylene glycol (PEG) 3350 (Miralax) packet 17 g 17 g, Oral, Daily PRN, constipation, Starting on Fri01/16/24 at 1339, 1st line for treatment of constipation - give scheduled if no bowel movement in past 24 hours. 0806 (Given - Provider: Nikki Calvillo LPN) Linked Groups Order Group 1: acetaminophen (Tylenol) tablet 650 mgJump to med 650 mg, Oral, Every 6 hours PRN, mild pain (1-3), fever, For temp greater than 100.4 F (38 C), Starting on Fri01/16/24 at 1339, Maximum dose of acetaminophen is 4000 mg from all sources in 24 hours. Or acetaminophen (Tylenol) suppository 650 mgJump to med 650 mg, Rectal, Every 6 hours PRN, mild pain (1-3), fever, For temp greater than 100.4 F (38 C), Starting on Fri01/16/24 at 1339, Administer if oral route cannot be used. Maximum dose of acetaminophen is 4000 mg from all sources in 24 hours. Group 2: ondansetron ODT (Zofran-ODT) disintegrating tablet 4 mgJump to med 4 mg, Oral, Every 8 hours PRN, nausea, vomiting, Starting on Fri01/16/24 at 1339, 1st Line. If inadequate response within 60 minutes, proceed to next-line agent or contact provider if no further options ordered. Patient should allow tablet to dissolve on tongue. Do not remove from blister pack until just before administering. Or ondansetron (Zofran) injection 4 mgJump to med 4 mg, IntraVENous, Every 6 hours PRN, nausea, vomiting, Starting on Fri01/16/24 at 1339, 1st Line. Give IV if patient is unable to take orally. If inadequate response within 60 minutes, proceed to next-line agent or contact provider if no further options ordered. FOR RECORDS PERTAINING TO PATIENTS WHO ARE OR HAVE BEEN ENROLLED IN A CHEMICAL DEPENDENCY/SUBSTANCEABUSE PROGRAM, SOME INFORMATION MAY BE OMITTED. This clinical summary was aggregated from multiple sources. Caution should be exercised in using it in the provision of clinical care. This summary normalizes information from multiple sources, and as a consequence, information in this document may materially change the coding, format and clinical context of patient data. In addition, data may be omitted in some cases. CLINICAL DECISIONS SHOULD BE BASED ON THE PRIMARY CLINICAL RECORDS. [facility] [employer] [facility]. provides no warranty or guarantee of the accuracy or completeness of information in this document.
[2025-07-02 12:37] LABS: Hematocrit 35.4 % (37-47); Hemoglobin 10.5 g/dL (12.0-15.0); Immature Granulocytes Count 0.040 X10^3/uL (0.0-0.0); Mean Corp Hgb Conc 29.7 g/dL (32-36); Mean Corpuscular Volume 80.5 fL (81-99); Mean Platelet Vol. 12.2 fl (6.2-12.0); NRBC Flagged by Analyzer 0 % (0-5); Platelet Count 267 K/mm3 (150-450); RBC Distribution Width CV 18.9 % (11.6-14.6); RBC Distribution Width SD 54.8 fl (35.1-43.9); Red Blood Count 4.40 M/mm3 (4.2-5.4); White Blood Count 8.3 K/mm3 (4.4-11.0)
[2025-07-02 13:30] LABS: Anion Gap 13 (5-15); BUN 13 mg/dL (4-19); BUN/Creat Ratio 11.8 RATIO (10-20); Calcium,Total 9.4 mg/dL (7.6-11.0); Carbon Dioxide 22.7 mmol/L (21.0-32.0); Chloride 103 mmol/L (98-108); Estimated Creatinine Clearance 27.61 ml/min (50-250); Glucose 107 mg/dL (70-99); Potassium 3.9 mmol/L (3.3-5.1)
--- NOTE | 2025-07-02 13:40 | RAD_ITS ---
PROCEDURE: HIP, UNI W/ PELVIS 2-3 VIEWS 07/02/2025 REASON FOR EXAM: FALL AND R-HIP PAIN TECHNIQUE: HIP, UNI W/ PELVIS 2-3 VIEWS Laterality: Right COMPARISON: None FINDINGS: Bones: Decreased bone mineralization. Displaced intertrochanteric fracture seen on the right. Femoral neck and femoral head are intact and in situ. Joints: No dislocation Soft tissues: Atherosclerosis. Other: PureWick catheter RAD/HIP, UNI W/ Pelvis 2-3 Views IMPRESSION: Right intertrochanteric fracture. Mild displacement. Reading Location: [id number]
[2025-07-02 13:42] LABS: Prothrombin Time (Protime)PT. 13.3 SECONDS (11.7-14.9)
[2025-07-02 14:09] VITALS: BP 116/104; PULSE 72; RESP 18; O2SAT 92
--- OUTSIDE RECORDS SUMMARY | 2025-07-02 15:44 | XMS RPT_ITS | CCD ---
Author Organization [facility]iniSyn[facility] Care Team Providers Care Group Home Supervisor Name Role Phone EMI, GAL E Unavailable Unavailable EMI, GAL E Unavailable Unavailable EMI, GAL Unavailable Unavailable EMI, GAL Unavailable Unavailable Petrilla, Wayne Unavailable Unavailable EMI, GAL Unavailable Unavailable EMI, GAL Unavailable Unavailable Petrilla, Wayne Unavailable Unavailable Petrilla, Wayne F Primary Care Provider Petrilla DO, Wayne F Primary Care Provider [phone] Petrilla DO, Wayne F Primary Care Provider Petrilla DO, Wayne F Primary Care Provider Petrilla DO, Wayne F Primary Care Provider [phone] Frederic Garcia MD Emergency Provider Dr. Wayne Conde DO Primary Care Provider Miquel GARCIA, Dr. Fischer Admit Provider Dr. Aaliyah Lafleur MD Other Provider Dr. Priyank Bauer DO Attending Provider Dr. Priyank Bauer DO Other Provider Dr. Jaxson Scott DO Emergency Provider de Dr. Maynor Cox DO Admit Provider Unavail able Dr. Maynor Costa DO Attending Provider Unav ailable Dr. Maynor Costa DO Other Provider Unavail able Dr. Vincent Cool DO Other Provider Dr. Tan Triplett MD Attending Provider Dr. Tan Triplett MD Other Provider Mak GARCIA, Dr. Stern Attending Provider Unavailrosina Corado MD, Dr. Stren Referring Provider Unavailrosina Garcia MD, Frederic Attending Provider Dr. Wayne Conde DO Referring Provider [phone] Tomasz COOL ROOFING INSTALLER-C, Jennifer Attending Provider Araceli GARCIA, Dr. Morel Attending Provider Maynor Costa Admitting Unavailable Maynor Costa Consulting [...] Consulting Unavailable Petrilla, Wayne Primary Care Unavailable Manyor Costa Admitting Unavailable Vincent Cool Consulting Unavailable [...] Agonists (2 sources) Codeine Drug Allergy 03-03-2006 [facility] (20 sources) codeine; Translations: [CODEINE] Drug Allergy 03-03-2006 Royce SORIAON [facility] Other [place] [facility] Medications Current Medications Medication Drug Class(es) [...] tablets by mouth in the evening HYDROcodone-acetaminophen ([place]) 5-325 MG tablet Indications: Other osteoarthritis of [...] THE MORNING 90 capsule 5 06/30/2019 Active [place]-3 Fatty Acids 1,000 mg capsule (5 sources) Start: 02-16-2025 take 1 capsule by mouth once daily [place]-3 Fatty Acids 1,000 mg capsule Active 1000 [...] (before breakfast) 60 tablet 5 06/30/2019 Active [place] 9-Fie-Ust-Fish Oil (10 sources) Start: 01-23-2025 End: 02-16-2025 [place] 7-Hdc-Wyy-Fish Oil (Fi sh Oil) 300-1,000 mg capsule Discontinued 1 NMA PO DAILY January 23, 2025 1:00am February 16, 2025 9:14am Start: 01-02-2025 End: 01-23-2025 [place] 0-Tdi-Ozt-Fish Oil (Fi sh Oil) 300-1,000 mg capsule [...] every week ergocalciferol (Vitamin D2) 1.25 MG (57097 UT) capsule TAKE 1 CAPSULE BY MOUTH EVERY WEEK ON FRIDAY 5 capsule 11 09/23/2024 Active Start: 01-02-2023 End: 01-09-2023 take 1 capsule by mouth every week ergocalciferol (Vitamin D2) 1.25 MG (49319 UT) capsule TAKE 1 CAPSULE BY MOUTH ONE TIME PER WEEK 4 capsule 5 01/09/2023 Active Start: 06-30-2019 End: 02-14-2030 take 1 capsule by mouth every week ergocalciferol (Vitamin D2) 1.25 MG (17259 UT) capsule TAKE 1 CAPSULE BY MOUTH [...] capsule by mouth once daily Flaxseed Oil ([place]-3 Flaxseed Oil) 1,000 MG capsule Discontinued 1000 [...] 01-19-2024 End: 01-21-2024 melatonin tablet 3 mg [place] 1-Fbe-Tdl-Fish Oil 1 EACH capsule (5 sources) Start: 09-13-2016 End: 02-16-2025 take 1 capsule by mouth once daily [place] 9-Fpk-Nkw-Fish Oil 1 EACH capsule Discontinued 1 NMA [...] 10 mL IV syringe polyethylene glycol 3350 07967 mg powder for oral solution (10 sources) [...] disease (20 sources) Atherosclerotic heart disease of [place] coronary artery without angina pectoris; Translations: [Coronary [...] Results Test Name Value Interpretation Reference Range [address] 06-07-2025 36 Ordering provider: Josephine poe Date of last office visit: 12/22 Date of next office visit: 07/18 Updated/Validated [facility] [address] [facility] Patient instructed to contact the pharmacy prior [...] of last refill (see medication tab): 09/22/[address] 05-26-2025 36 Recent Visits Date Type Provider Dept 12/22/24 Office Visit Wayne Conde DO [facility] 09/22/24 Office Visit Wayne Conde DO [facility] 05/26/24 Office Visit Wayne Conde DO [facility] Showing recent visits within past 365 days and meeting all other requirements Future Appointments Date Type Provider Dept 07/18/25 Appointment Wayne Conde DO [facility] Showing future appointments within next 90 [...] Most recent labs completed in chart? N/A [facility] 05-19-2025 36 Jose David aware to cont t photography intern [facility] 36 Name of caller: Jose David Contact phone number: [phone] Relationship to Patient: [facility] Provider: Dr. Conde Practice: [place] [...] business hours to return their call: Yes [facility] 05-17-2025 36 We have no availabil ity before 07/18/25. [place] 3542705-06-2025 36 Pharmacist tonioin g all meds including over the counter to be sent again due to a goof on there part. [facility] 05-05-2025 36 Jennifer discussed medication list with pharmacy yesterday and was advised on what medications need sent. If other medications need sent he office needs to know the name and dosages of medication that need sent. [place] 3542705-04-2025 36 Name of caller: Jose David Contact phone number: [phone] Relationship to Patient: Pharmacy Provider: Dr. Conde Practice: [place] [facility] Chief Complaint/Reason for Call: Jose David states [...] business hours to return their call: Yes [facility] 36on 05-03-2025 36 Spoke with pharmacy went over med list and these are the med's she needs new scripts on. Rx loaded [facility] 36 Name of caller: Uzma ruiz Contact phone number: [phone] Relationship to Patient: [facility] Provider: Elton Practice: [place] [facility] Chief Complaint/Reason for Call: Mary rivas provider needs to call pharmacy [address] to verify medication list and and refill them for more then 2 weeks. Please advise Mary for further questions. Best time of day caller can be reached: any Patient advised that office/PCP has 24-48 business hours to return their call: Yes [facility] 36 Spoke with Kimberly and r elayed message from provider. Patient will keep her appointment in June. [facility] 36on 05-02-2025 36 full PCP does not have anything sooner. Schedule next available with PCP [place] [id number] See other TE [place] [address] Name of caller: Kimberly Contact phone number: [phone] Relationship to Patient: Provider: Dr Conde Practice: [facility] Chief Complaint/Reason for Call: RAJ appt need to scheduled -no longer than 14 days from discharge Best time of day caller can be reached: Patient advised that office/PCP has 24-48 business hours to return their call: No [facility] 36on 04-29-2025 36 Name of Caller: kimberly Contact Reason for Appointment: Kimberly is calling from [facility] to get pt scheduled for a trans care appt with pcp. Pcp's soonest available was in June but pt is needing seen within the next 2 weeks . Please advise. 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 Please advise. Best time of day caller can be reached: any Patient advised that office/PCP has 24-48 business hours to return their call: Yes [facility] Anion gap in Serum or Plasma Ordered By: Leena Corado on 03-24-2025 Anion gap [Moles/Vol] 11 mmol/L 04-07 [facility] BUN/creatinine ratioOrdered By: Leena Corado on 03-24-2025 Urea nitrogen/Creatinine [Mass ratio] 12.1 mg/mg 09-12 [facility] Basic Metabolic Profile (BMP )on 03-24-2025 BUN/CRE 12.1 RATIO Normal - [facility] Comment on above: Order Comment: 508.1 Performed By: #### L 100.0500, L501.4320, L500.2500 #### [facility] [address] [place], [address] Calcium [Mass/Vol] 9.2 mg/dL Normal 7.6-11.0 [facility] Comment on above: Order Comment: 508.1 Performed By: #### L 100.0500, L501.9520, L500.2500 #### [facility] [address] [place], [address] Chloride [Moles/Vol] 103 mmol/L Normal 98-108 [facility] Comment on above: Order Comment: 508.1 Performed By: #### L 100.0500, L501.9520, L500.2500 #### [facility] [address] [place], [address] CO2 [Moles/Vol] 24.4 mmol/L Normal 21.0-32.0 [facility] Comment on above: Order Comment: 508.1 Performed By: #### L 100.0500, L501.9520, L500.2500 #### [facility] [address] [place], [address] Creatinine [Mass/Vol] 0.92 mg/dL Normal 0.70-1.20 [facility] Comment on above: Order Comment: 508.1 Performed By: #### L 100.0500, L501.9520, L500.2500 #### [facility] [address] [place], [address] GAP 11 Normal 5-15 [facility] Comment on above: Order Comment: 508.1 Performed By: #### L 100.0500, L501.9520, L500.2500 #### [facility] [address] [place], [address] GFR/1.73 sq M.predicted among non-blacks MDRD (S/P/Bld) [Vol rate/Area] 61 mL/min/{1.73_m2} Normal >60 [facility] Comment on above: Order Comment: 508.1 Result Comment: mL/m in/1.73m2 CKD-EPI Creatinine Equation (2020) Performed By: #### L 100.0500, L501.9520, L500.2500 #### [facility] [address] [place], [address] Glucose [Mass/Vol] 85 mg/dL Normal 70-99 [facility] Comment on above: Order Comment: 508.1 Performed By: #### L 100.0500, L501.9520, L500.2500 #### [facility] [address] [place], [address] Potassium [Moles/Vol] 4.1 mmol/L Normal 3.3-5.1 [facility] Comment on above: Order Comment: 508.1 Performed By: #### L 100.0500, L501.9520, L500.2500 #### [facility] [address] [place], [address] Sodium [Moles/Vol] 138 mmol/L Normal 133-145 [facility] Comment on above: Order Comment: 508.1 Performed By: #### L 100.0500, L501.9520, L500.2500 #### [facility] [address] [place], [address] Urea nitrogen [Mass/Vol] 11 mg/dL Normal 4-19 [facility] Comment on above: Order Comment: 508.1 Performed By: #### L 100.0500, L501.9520, L500.2500 #### [facility] [address] [place], [address] CBC-Complete Blood Cnt No Di ffon 03-24-2025 Erythrocyte distribution width (RBC) [Ratio] 15.5 % High 11.6-14.6 [facility] Comment on above: Order Comment: 508.1 Performed By: #### L 100.0500, L501.9520, L500.2500 #### [facility] [address] [place], [address] Hematocrit (Bld) [Volume fraction] 32.4 % Low 37-47 [facility] Comment on above: Order Comment: 508.1 Performed By: #### L 100.0500, L501.9520, L500.2500 #### [facility] [address] [place], [address] Hemoglobin (Bld) [Mass/Vol] 10.1 g/dL Low 12.0-15.0 [facility] Comment on above: Order Comment: 508.1 Performed By: #### L 100.0500, L501.9520, L500.2500 #### [facility] [address] [place], [address] MCH (RBC) [Entitic mass] 25.6 pg Low 27.0-32.0 [facility] Comment on above: Order Comment: 508.1 Performed By: #### L 100.0500, L501.9520, L500.2500 #### [facility] [address] [place], [address] MCHC (RBC) [Mass/Vol] 31.2 g/dL Low 32-36 [facility] Comment on above: Order Comment: 508.1 Performed By: #### L 100.0500, L501.9520, L500.2500 #### [facility] [address] [place], [address] MCV (RBC) [Entitic vol] 82.2 fL Normal 81-99 [facility] Comment on above: Order Comment: 508.1 Performed By: #### L 100.0500, L501.9520, L500.2500 #### [facility] [address] [place], [address] Platelet mean volume (Bld) [Entitic vol] 11.6 fL Normal 6.2-12.0 [facility] Comment on above: Order Comment: 508.1 Performed By: #### L 100.0500, L501.9520, L500.2500 #### [facility] [address] [place], [address] Platelets (Bld) [#/Vol] 325 10*3/uL Normal 150-450 [facility] Comment on above: Order Comment: 508.1 Performed By: #### L 100.0500, L501.9520, L500.2500 #### [facility] [address] [place], [address] RBC (Bld) [#/Vol] 3.94 10*6/uL Low 4.2-5.4 [facility] Comment on above: Order Comment: 508.1 Performed By: #### L 100.0500, L501.9520, L500.2500 #### [facility] [address] [place], [address] RDW SD 46.5 fl High 35.1-43.9 [facility] Comment on above: Order Comment: 508.1 Performed By: #### L 100.0500, L501.9520, L500.2500 #### [facility] [address] [place], [address] WBC (Bld) [#/Vol] 6.5 10*3/uL Normal 4.4-11.0 [facility] Comment on above: Order Comment: 508.1 Performed By: #### L 100.0500, L501.9520, L500.2500 #### [facility] [address] [place], [address] Carbon dioxide, total [Moles /volume] in Central venous bloodOrdered By: Leena Corado on 03-24-2025 CO2 [Moles/Vol] 24.4 mmol/L 21.0-32.0 [facility] Chloride assayOrdered By: Malik Corado on 03-24-2025 Chloride [Moles/Vol] 103 mmol/L 98-108 [facility] Erythrocyte distribution wid th ratioOrdered By: Leena Corado on 03-24-2025 Erythrocyte distribution width (RBC) [Ratio] 15.5 % High 11.6-14.6 [facility] Erythrocyte distribution wid th standard deviationOrdered By: Leena Corado on 03-24-2025 Erythrocyte distribution width (RBC) [Ratio] 46.5 fl High 35.1-43.9 [facility] Glomerular filtration rate ( GFR) estimation/1.73 sq m using serum, plasma, or whole bOrdered By: Leena Corado on 03-24-2025 GFR/1.73 sq M.predicted among non-blacks MDRD (S/P/Bld) [Vol rate/Area] 61 mL/min/{1.73_m2} >60 [facility] Comment on above: mL/min/1.73m2 CKD-EP I Creatinine Equation (2020) Hematocrit Auto (Bld) [Volum e fraction]Ordered By: Leena Corado on 03-24-2025 Hematocrit (Bld) [Volume fraction] 32.4 % Low 37-47 [facility] Hemoglobin measurementOrdere d By: Leena Corado on 03-24-2025 Hemoglobin (Bld) [Mass/Vol] 10.1 g/dL Low 12.0-15.0 [facility] MCV (mean corpuscular volume ) determinationOrdered By: Leena Corado on 03-24-2025 MCV (RBC) [Entitic vol] 82.2 fL 81-99 [facility] Mean corpuscular hemoglobin (MCH) determinationOrdered By: Leena Corado on 03-24-2025 MCH (RBC) [Entitic mass] 25.6 pg Low 27.0-32.0 [facility] Mean corpuscular hemoglobin concentration (MCHC) determinationOrdered By: Leena Corado on 03-24-2025 MCHC (RBC) [Mass/Vol] 31.2 g/dL Low 32-36 [facility] Mean platelet volume determi nationOrdered By: Leena Corado on 03-24-2025 Platelet mean volume (Bld) [Entitic vol] 11.6 fL 6.2-12.0 [facility] Platelet countOrdered By: Malik Corado on 03-24-2025 Platelets (Bld) [#/Vol] 325 10*3/uL 150-450 [facility] Potassium measurement (mass/ volume)Ordered By: Leena Corado on 03-24-2025 Potassium (Unsp spec) [Mass/Vol] 4.1 mmol/L 3.3-5.1 [facility] RBC Auto (Bld) [#/Vol]Ordere d By: Leena Corado on 03-24-2025 RBC (Bld) [#/Vol] 3.94 10*6/uL Low 4.2-5.4 [facility] Serum creatinine measurement (mass/volume)Ordered By: Leena Corado on 03-24-2025 Creatinine [Mass/Vol] 0.92 mg/dL 0.70-1.20 [facility] Serum glucose measurement (m ass/volume)Ordered By: Leena Corado on 03-24-2025 Glucose [Mass/Vol] 85 mg/dL 70-99 [facility] Serum or plasma calcium harish urement (mass/volume)Ordered By: Leena Corado on 03-24-2025 Calcium [Mass/Vol] 9.2 mg/dL 7.6-11.0 [facility] Serum or plasma urea nitroge n measurement (mass/volume)Ordered By: Leena Corado on 03-24-2025 Urea nitrogen [Mass/Vol] 11 mg/dL 4-19 [facility] Sodium levelOrdered By: Nelson Corado on 03-24-2025 Sodium [Moles/Vol] 138 mmol/L 133-145 [facility] TSH DL <= 0.005 mIU/L QnOrde red By: Leena Corado on 03-24-2025 TSH Qn 2.480 uIU/mL 0.300-4.20 0 [facility] Thyroid Stim Hormone (TSH)on 03-24-2025 TSH 2.480 uIU/mL Normal 0.300-4.20 0 [facility] Comment on above: Order Comment: 508.1 Performed By: #### L 100.0500, L501.0820, L500.2500 #### [facility] [address] [place], [address] White blood cell (WBC) count Ordered By: Leena Corado on 03-24-2025 WBC (Bld) [#/Vol] 6.5 10*3/uL 4.4-11.0 [facility] 12 Lead EKG performed by [facility] on 03-09-2025 12 Lead EKG performed by [facility] [address] [place] [address] 12 Lead EKG performed by [facility] 03/09/2532 MR#: [id number] Acct: [id number] Name: FARZANA HERRON Rep #: [id number] : 1940 84 From: Adriel Charles MD Attending Dr: Dr. Adriel Charles MD Status: DEP A MB Ordering Dr: Adriel Charles MD Date: 03/09/25 Location: [facility] Sex: F C Admitted: [facility]/12 Lead EKG performed by [facility] ECG Report Interpretation Si nus Rhythm Low voltage in precordial leads. -Old inferior infarct -Old anterior infarct. ABNORMAL Electronically signed on 03/10/2025 at 07:35 by Adriel Charles Software Version [id number] 03/10/2536 Date Adriel Charles MD CC: Dr. Wayne Conde DO Date Dictated: 03/09/25931 Date Transcribed: 03/09/25931 Director Of Market Analysis: [place] Signed Normal [facility] Cardiology Visit Reporton Cardiology Visit Report [facility] [address] [place] [address] OFFICE VISIT Date of Service: 03/09/25 MR#: [id number] Acct: [id number] Name: FARZANA HERRON Rep #: [id number] : 1940 Provider: Dr. Adriel Charles MD Age/Sex: 84/F Location: [facility] Status: Signed HPI HPI History of Present Illness Details: 84-year-old lady with a history of Alzheimer's dementia and coronary artery disease currently domiciled at [facility]. She had presented in 2015 with [...] Source Monitor Intake Visit Reasons: ABN EKG ([facility]) Power Originator Required: No Accompanied by: Caregiver Is patient [...] History acetaminophen 650 mg rectal 650 mg UT Q4H 01/23/25 03/09/25 Hi story suppository albuterol [...] bisacodyl 10 mg rectal suppository 10 mg UT QDAY PRN 02/16/2503/09 History dextrose 40 % [...] mineral oil (Fleet Mineral Oil 118 ml UT QDAY PRN 02/16/25 History enema) mirtazapine 15 mg tablet 15 mg PO QHS 02/16/25 03/09/25 His tory omega-3 fatty acids 1,000 mg 1,000 mg PO QDAY 02/16/25 03/09/25 History capsule pantoprazole 40 mg tablet,delayed 40 mg PO QHS 02/16/25 03/09/25 Hi story release Have you fallen in the past year?: Yes [facility] Medical History Syncope and collapse LV dysfunction Anxiety IBS (irritable bowel syndrome) COPD (chronic obstructive pulmonary disease) Hx of myocardial infarction Arrhythmia Chronic CHF (congesti (more content not included)... Normal [facility] Pulmonary Visit Reporton Pulmonary Visit Report [facility] [place] [address] [place] [address] OFFICE VISIT Date of Service: 02/16/25 MR#: [id number] Acct: [id number] Name: FARZANA HERRON Rep #: [id number] : 1940 Provider: SOPHIE Tolbert Age/Sex: 84/F Location: [facility] Status: Signed Assessment and Plan Assessment and Plan (1) Lung nodule: Status: Acute Plan: The patient is not agreeable to any additional testing. She does not believe that she could possibly have cancer. I attempted to call the and the daughter listed on the fdc paperwork and our contact list. I was not able to get a hold of any family members. I did request that the fdc discussed this with the family members. I [...] accompanied by a nurses aide from the [facility]dc she resides in. She was seen in the emergency department at [facility] on January 23, 2025 for low oxygen saturation. She has a history of reported COPD and CHF. She was complaining of shortness of breath and the fdc was reporting that she had an oxygen [...] dose of Solu-Medrol and return to the alf facility with a prescription for 7-day prednisone [...] Visit Reason (more content not included)... Normal [facility] L506.1001on 02-01-2025 Vitamin D 25-OH 57.0 ng/mL Normal 30-100 [facility] Comment on above: Order Comment: 508.1 Result Comment: Teresa min D Status Deficiency: <20 ng/mL (50nmol/L) Insufficiency: 20-30 ng/mL (50-75 nmol/L) Sufficiency: 30-100 ng/mL (75-250 nmol/L) Toxicity: >100 ng/mL (>250 nmol/L) Performed By: #### L 100.0500, L501.9520, L500.2500 #### [facility] [address] [place], [address] Vitamin D, 25-hydroxyOrdered By: Leena Corado on 02-01-2025 Vitamin D 25-Hydroxy 57.0 ng/mL 30-100 [facility] Comment on above: Vitamin D StatusDefi ciency: <20 ng/mL (50nmol/L)Insufficiency: 20-30 ng/mL (50-75 nmol/L)Sufficiency: 30-100 ng/mL (75-250 nmol/L)Toxicity: >100 ng/mL (>250 nmol/L) Automated blood erythrocyte countOrdered By: Leena Corado on 01-28-2025 RBC (Bld) [#/Vol] 3.31 10*6/uL Low 4.2-5.4 [facility] Comment on above: Order Comment: 508.1 Performed By: #### L 100.0500, L501.9520, L500.2500 #### [facility] [address] [place], [address] Automated blood hematocrit ( percentage)Ordered By: Leena Corado on 01-28-2025 Hematocrit (Bld) [Volume fraction] 29.2 % Low 37-47 [facility] Comment on above: Order Comment: 508.1 Performed By: #### L 100.0500, L501.9520, L500.2500 #### [facility] [address] [place], [address] CBC-Complete Blood Cnt No Di ffon 01-28-2025 RDW SD 53.5 fl High 35.1-43.9 [facility] Comment on above: Order Comment: 508.1 Performed By: #### L 100.0500, L501.9520, L500.2500 #### [facility] [address] [place], [address] Erythrocyte distribution wid th ratioOrdered By: Leena Corado on 01-28-2025 Erythrocyte distribution width (RBC) [Ratio] 16.7 % High 11.6-14.6 [facility] Comment on above: Order Comment: 508.1 Performed By: #### L 100.0500, L501.9520, L500.2500 #### [facility] [address] [place], [address] Erythrocyte distribution wid th standard deviationOrdered By: Leena Corado on 01-28-2025 Erythrocyte distribution width (RBC) [Entitic vol] 53.5 fL High 35.1-43.9 [facility] Erythrocyte distribution width (RBC) [Ratio] 53.5 fl High 35.1-43.9 [facility] Hemoglobin measurementOrdere d By: Leena Corado on 01-28-2025 Hemoglobin (Bld) [Mass/Vol] 9.1 g/dL Low 12.0-15.0 [facility] Comment on above: Order Comment: 508.1 Performed By: #### L 100.0500, L501.9520, L500.2500 #### [facility] [address] [place], [address] MCV (mean corpuscular volume ) determinationOrdered By: Leena Corado on 01-28-2025 MCV (RBC) [Entitic vol] 88.2 fL Normal 81-99 [facility] Comment on above: Order Comment: 508.1 Performed By: #### L 100.0500, L501.9520, L500.2500 #### [facility] [address] [place], [address] Magnesium measurement (mass/ volume)Ordered By: Leena Corado on 01-28-2025 Magnesium [Mass/Vol] 1.7 mg/dL Normal 1.5-2.2 [facility] Comment on above: Order Comment: 508.1 Performed By: #### L 100.0500, L501.9520, L500.2500 #### [facility] [address] [place], [address] Magnesium (Unsp spec) [Mass/Vol] 1.7 mg/dL 1.5-2.2 [facility] Mean corpuscular hemoglobin (MCH) determinationOrdered By: Leena Corado on 01-28-2025 MCH (RBC) [Entitic mass] 27.5 pg Normal 27.0-32.0 [facility] Comment on above: Order Comment: 508.1 Performed By: #### L 100.0500, L501.9520, L500.2500 #### [facility] [address] [place], [address] Mean corpuscular hemoglobin concentration (MCHC) determinationOrdered By: Leena Corado on 01-28-2025 MCHC (RBC) [Mass/Vol] 31.2 g/dL Low 32-36 [facility] Comment on above: Order Comment: 508.1 Performed By: #### L 100.0500, L501.9520, L500.2500 #### [facility] [address] [place], [address] Mean platelet volume determi nationOrdered By: Leena Corado on 01-28-2025 Platelet mean volume (Bld) [Entitic vol] 10.8 fL Normal 6.2-12.0 [facility] Comment on above: Order Comment: 508.1 Performed By: #### L 100.0500, L501.9520, L500.2500 #### [facility] [address] [place], [address] Platelet countOrdered By: Malik Corado on 01-28-2025 Platelets (Bld) [#/Vol] 437 10*3/uL Normal 150-450 [facility] Comment on above: Order Comment: 508.1 Performed By: #### L 100.0500, L501.9520, L500.2500 #### [facility] [address] [place], [address] White blood cell (WBC) count Ordered By: Leena Corado on 01-28-2025 WBC (Bld) [#/Vol] 9.5 10*3/uL Normal 4.4-11.0 [facility] Comment on above: Order Comment: 508.1 Performed By: #### L 100.0500, L501.9520, L500.2500 #### [facility] [address] [place], [address] Automated blood erythrocyte countOrdered By: Leena Corado on 01-24-2025 RBC (Bld) [#/Vol] 3.50 10*6/uL Low 4.2-5.4 [facility] Comment on above: Order Comment: 104.1 Performed By: #### L 100.0500, L501.5200, L500.2500 #### [facility] [address] [place], [address] Automated blood hematocrit ( percentage)Ordered By: Leena Corado on 01-24-2025 Hematocrit (Bld) [Volume fraction] 30.7 % Low 37-47 [facility] Comment on above: Order Comment: 104.1 Performed By: #### L 100.0500, L501.5200, L500.2500 #### [facility] [address] [place], [address] BUN/creatinine ratioOrdered By: Leena Corado on 01-24-2025 Urea nitrogen/Creatinine [Mass ratio] 30.6 mg/mg High 10-20 [facility] Basic Metabolic Profile (BMP )on 01-24-2025 BUN/CRE 30.6 RATIO High 10-20 [facility] Comment on above: Order Comment: 104.1 Performed By: #### L 100.0500, L501.5200, L500.2500 #### [facility] [address] [place], [address] CBC-Complete Blood Cnt No Di ffon 01-24-2025 RDW SD 54.9 fl High 35.1-43.9 [facility] Comment on above: Order Comment: 104.1 Performed By: #### L 100.0500, L501.5200, L500.2500 #### [facility] [address] [place], [address] Carbon dioxide measurementOr dered By: Leena Corado on 01-24-2025 CO2 [Moles/Vol] 26.9 mmol/L Normal 22.0-29.0 [facility] Comment on above: Order Comment: 104.1 Performed By: #### L 100.0500, L501.5200, L500.2500 #### [facility] [address] [place], [place], [address] Chloride measurementOrdered By: Leena Corado on 01-24-2025 Chloride [Moles/Vol] 99 mmol/L Normal 96-108 [facility] Comment on above: Order Comment: 104.1 Performed By: #### L 100.0500, L501.5200, L500.2500 #### [facility] [address] [place], [address] Erythrocyte distribution wid th ratioOrdered By: Leena Corado on 01-24-2025 Erythrocyte distribution width (RBC) [Ratio] 17.3 % High 11.6-14.6 [facility] Comment on above: Order Comment: 104.1 Performed By: #### L 100.0500, L501.5200, L500.2500 #### [facility] [address] [place], [address] Erythrocyte distribution wid th standard deviationOrdered By: Leena Corado on 01-24-2025 Erythrocyte distribution width (RBC) [Entitic vol] 54.9 fL High 35.1-43.9 [facility] Erythrocyte distribution width (RBC) [Ratio] 54.9 fl High 35.1-43.9 [facility] GFR/1.73 sq M.predicted donovan g non-blacks MDRD (S/P/Bld) [Vol rate/Area]Ordered By: Leena Corado on 01-24-2025 Estimated GFR (MDRD) Non-Af Amer 58 Low >60 [facility] Comment on above: mL/min/1.73m2 CKD-EP I Creatinine Equation (2020) Glomerular filtration rate ( GFR) estimation/1.73 sq m using serum, plasma, or whole bOrdered By: Leena Corado on 01-24-2025 GFR/1.73 sq M.predicted among non-blacks MDRD (S/P/Bld) [Vol rate/Area] 58 mL/min/{1.73_m2} Low >60 [facility] Comment on above: mL/min/1.73m2 CKD-EP I Creatinine Equation (2020) Order Comment: 104.1 Result Comment: mL/m in/1.73m2 CKD-EPI Creatinine Equation (2020) Performed By: #### L 100.0500, L501.5200, L500.2500 #### [facility] [address] [place], [address] Hemoglobin measurementOrdere d By: Leena Corado on 01-24-2025 Hemoglobin (Bld) [Mass/Vol] 9.7 g/dL Low 12.0-15.0 [facility] Comment on above: Order Comment: 104.1 Performed By: #### L 100.0500, L501.5200, L500.2500 #### [facility] [address] [place], [address] MCV (mean corpuscular volume ) determinationOrdered By: Leena Corado on 01-24-2025 MCV (RBC) [Entitic vol] 87.7 fL Normal 81-99 [facility] Comment on above: Order Comment: 104.1 Performed By: #### L 100.0500, L501.5200, L500.2500 #### [facility] [address] [place], [address] Magnesium measurement (mass/ volume)Ordered By: Leena Corado on 01-24-2025 Magnesium [Mass/Vol] 1.7 mg/dL Normal 1.5-2.2 [facility] Comment on above: Order Comment: 104.1 Performed By: #### L 100.0500, L501.5200, L500.2500 #### [facility] [address] [place], [address] Magnesium (Unsp spec) [Mass/Vol] 1.7 mg/dL 1.5-2.2 [facility] Mean corpuscular hemoglobin (MCH) determinationOrdered By: Leena Corado on 01-24-2025 MCH (RBC) [Entitic mass] 27.7 pg Normal 27.0-32.0 [facility] Comment on above: Order Comment: 104.1 Performed By: #### L 100.0500, L501.5200, L500.2500 #### [facility] [address] [place], [address] Mean corpuscular hemoglobin concentration (MCHC) determinationOrdered By: Leena Corado on 01-24-2025 MCHC (RBC) [Mass/Vol] 31.6 g/dL Low 32-36 [facility] Comment on above: Order Comment: 104.1 Performed By: #### L 100.0500, L501.5200, L500.2500 #### [facility] [address] [place], [place], [id number] Mean platelet volume determi nationOrdered By: Leena Corado on 01-24-2025 Platelet mean volume (Bld) [Entitic vol] 10.7 fL Normal 6.2-12.0 [facility] Comment on above: Order Comment: 104.1 Performed By: #### L 100.0500, L501.5200, L500.2500 #### [facility] [address] [place], [place], [id number] Platelet countOrdered By: Malik Corado on 01-24-2025 Platelets (Bld) [#/Vol] 519 10*3/uL High 150-450 [facility] Comment on above: Order Comment: 104.1 Performed By: #### L 100.0500, L501.5200, L500.2500 #### [facility] [address] [place], [address] Serum creatinine measurement (mass/volume)Ordered By: Leena Corado on 01-24-2025 Creatinine [Mass/Vol] 0.95 mg/dL Normal 0.70-1.20 [facility] Comment on above: Order Comment: 104.1 Performed By: #### L 100.0500, L501.5200, L500.2500 #### [facility] [address] [place], [address] Serum glucose measurement (m ass/volume)Ordered By: Leena Corado on 01-24-2025 Glucose [Mass/Vol] 153 mg/dL High 70-99 [facility] Comment on above: Order Comment: 104.1 Performed By: #### L 100.0500, L501.5200, L500.2500 #### [facility] [address] [place], [address] Serum or plasma anion gap de termination (moles/volume)Ordered By: Leena Corado on 01-24-2025 Anion gap [Moles/Vol] 11 mmol/L Normal 5-15 [facility] Comment on above: Order Comment: 104.1 Performed By: #### L 100.0500, L501.5200, L500.2500 #### [facility] [address] [place], [address] Serum or plasma calcium harish urement (mass/volume)Ordered By: Leena Corado on 01-24-2025 Calcium [Mass/Vol] 9.5 mg/dL Normal 7.6-11.0 [facility] Comment on above: Order Comment: 104.1 Performed By: #### L 100.0500, L501.5200, L500.2500 #### [facility] [address] [place], [address] Serum or plasma potassium me asurementOrdered By: Leena Corado on 01-24-2025 Potassium [Moles/Vol] 4.9 mmol/L Normal 3.3-5.1 [facility] Comment on above: Order Comment: 104.1 Performed By: #### L 100.0500, L501.5200, L500.2500 #### [facility] [address] [place], [address] Serum or plasma sodium measu rement (moles/volume)Ordered By: Leena Corado on 01-24-2025 Sodium [Moles/Vol] 136 mmol/L Normal 133-145 [facility] Comment on above: Order Comment: 104.1 Performed By: #### L 100.0500, L501.5200, L500.2500 #### [facility] [address] [place], [place], [id number] Serum or plasma urea nitroge n measurement (mass/volume)Ordered By: Leenawendy Corado on 01-24-2025 Urea nitrogen [Mass/Vol] 29 mg/dL High 4-19 [facility] Comment on above: Order Comment: 104.1 Performed By: #### L 100.0500, L501.5200, L500.2500 #### [facility] [address] [place], [address] White blood cell (WBC) count Ordered By: Leena Corado on 01-24-2025 WBC (Bld) [#/Vol] 15.3 10*3/uL High 4.4-11.0 [facility] Comment on above: Order Comment: 104.1 Performed By: #### L 100.0500, L501.5200, L500.2500 #### [facility] [address] [place], [place], [id number] 12 Lead EKGon 01-23-2025 12 Lead EKG [facility] [address] [place] [address] 12 Lead EKG 01/23/25 1040 MR#: [id number] Acct: [id number] Name: FARZANA HERRON Rep #: [id number] : 1940 84 From: Kannan Pollock MD [...] undetermined Abnormal ECG Confirmed by Kannan Pollock ([id number]), proposal editor SAMIA CASTRO ([id number]) on 01/24/2025 9:44:31 AM Referred By: AR/AK Confirmed By: Kannan Pollock 01/24/25 0944 Date Kannan Pollock MD CC: Dr. Frederic Garcia MD; Dr. Wayne Conde DO Signed Normal [facility] Absolute lymphocyte countOrd ered By: Frederic Garcia on 01-23-2025 Lymphocytes Auto (Unsp spec) [#/Vol] 1.61 10*3/uL 0.83-4.51 [facility] Absolute neutrophil countOrd ered By: Frederic Garcia on 01-23-2025 Neutrophils (Bld) [#/Vol] 6.8 10*3/uL 2.0-7.7 [facility] Arterial patency Wrist arter y --pre arterial punctureOrdered By: Frederic Garcia on 01-23-2025 Destiney Test Positive [facility] Assessment of wrist artery p atency prior to arterial punctureOrdered By: Frederci Garcia on 01-23-2025 Arterial patency Wrist artery --pre arterial puncture Positive [facility] Automated lymphocyte count a s percentage of total leukocytesOrdered By: Frederic Garcia on 01-23-2025 Lymphocytes/100 WBC Auto (Unsp spec) 16.6 % Low 19-41 [facility] BUN/creatinine ratioOrdered By: Frederic Garcia on 01-23-2025 Urea nitrogen/Creatinine [Mass ratio] 27.5 mg/mg High 10-20 [facility] Base excess Calc (BldV) [Mol es/Vol]Ordered By: Frederic Garcia on 01-23-2025 Blood Gas Base Excess 5 mmol/L High -2-2 [facility] Basic Metabolic Profile (BMP )on 01-23-2025 Anion gap [Moles/Vol] 12 mmol/L Normal 5-15 [facility] Comment on above: Performed By: #### L 100.0500, L501.9520, L500.2500 #### [facility] [address] [place], [address] BUN/CRE 27.5 RATIO High 10-20 [facility] Comment on above: Performed By: #### L 100.0500, L501.9520, L500.2500 #### [facility] [address] [place], [address] Calcium [Mass/Vol] 9.6 mg/dL Normal 7.6-11.0 [facility] Comment on above: Performed By: #### L 100.0500, L501.9520, L500.2500 #### [facility] [address] [place], [address] Chloride [Moles/Vol] 96 mmol/L Normal 96-108 [facility] Comment on above: Performed By: #### L 100.0500, L501.9520, L500.2500 #### [facility] [address] [place], [address] CO2 [Moles/Vol] 23.9 mmol/L Normal 22.0-29.0 [facility] Comment on above: Performed By: #### L 100.0500, L501.9520, L500.2500 #### [facility] [address] [place], [address] Creatinine [Mass/Vol] 0.95 mg/dL Normal 0.70-1.20 [facility] Comment on above: Performed By: #### L 100.0500, L501.9520, L500.2500 #### [facility] [address] [place], [address] ECRCL 31.10 ml/min Low 50-250 [facility] Comment on above: Performed By: #### L 100.0500, L501.9520, L500.2500 #### [facility] [address] [place], [address] GFR/1.73 sq M.predicted among non-blacks MDRD (S/P/Bld) [Vol rate/Area] 59 mL/min/{1.73_m2} Low >60 [facility] Comment on above: Result Comment: mL/m in/1.73m2 CKD-EPI Creatinine Equation (2020) Performed By: #### L 100.0500, L501.9520, L500.2500 #### [facility] [address] [place], [address] Glucose [Mass/Vol] 121 mg/dL High 70-99 [facility] Comment on above: Performed By: #### L 100.0500, L501.9520, L500.2500 #### [facility] [address] [place], [address] Potassium [Moles/Vol] 5.1 mmol/L Normal 3.3-5.1 [facility] Comment on above: Performed By: #### L 100.0500, L501.9520, L500.2500 #### [facility] [address] [place], [address] Sodium [Moles/Vol] 132 mmol/L Low 133-145 [facility] Comment on above: Performed By: #### L 100.0500, L501.9520, L500.2500 #### [facility] [address] [place], [address] Urea nitrogen [Mass/Vol] 26 mg/dL High 4-19 [facility] Comment on above: Performed By: #### L 100.0500, L501.9520, L500.2500 #### [facility] [address] [place], [address] Basophil percentageOrdered B y: Frederic Garcia on 01-23-2025 Basophils/100 WBC (Bld) 0.5 % 0-1 [facility] Blood Gases by CPSon 025 DESTINEY TEST Positive Normal [facility] Comment on above: Performed By: #### L 9000.0800 #### [facility] [address] [place], [address] Base excess Calc (Bld) [Moles/Vol] 5 mmol/L High -2 to +2 [facility] Comment on above: Performed By: #### L 9000.0800 #### [facility] [address] [place], [address] Blood Gas Type ART [facility] Comment on above: Performed By: #### L 9000.0800 #### [facility] [address] [place], [address] CO2 [Moles/Vol] 31 mmol/L Normal [facility] Comment on above: Performed By: #### L 9000.0800 #### [facility] [address] [place], [address] FI02 3.0 [facility] Comment on above: Performed By: #### L 9000.0800 #### [facility] [address] [place], [address] HCO3 (Bld) [Moles/Vol] 29.6 mmol/L High 22-26 [facility] Comment on above: Performed By: #### L 9000.0800 #### [facility] [address] [place], [address] Mode Not entered [facility] Comment on above: Performed By: #### L 9000.0800 #### [facility] [address] [place], [address] O2 Delivery Dev Cannula Normal [facility] Comment on above: Performed By: #### L 9000.0800 #### [facility] [address] [place], [address] pCO2 45.0 mmHg Normal 35-45 [facility] Comment on above: Performed By: #### L 9000.0800 #### [facility] [address] [place], [address] pH (Bld) 7.43 [pH] Normal 7.35-7.45 [facility] Comment on above: Performed By: #### L 9000.0800 #### [facility] [address] [place], [address] PO2 59 mmHG Low 75-100 [facility] Comment on above: Performed By: #### L 9000.0800 #### [facility] [address] [place], [address] SITE R Radial Normal [facility] Comment on above: Performed By: #### L 9000.0800 #### [facility] [address] [place], [address] SO2 91 Low 95-99 [facility] Comment on above: Performed By: #### L 9000.0800 #### [facility] [address] [place], [address] Blood base excess determinat ionOrdered By: Frederic Garcia on 01-23-2025 Base excess Calc (BldV) [Moles/Vol] 5 mmol/L [facility] -2-2 [facility] Blood bicarbonate measuremen tOrdered By: Frederic Garcia on 01-23-2025 Blood Gas Bicarbonate Actual 29.6 mmol/L High [facility] HCO3 (Bld) [Moles/Vol] 29.6 mmol/L [facility] CBC W/Diff, Automatedon Absolute Lymph 1.61 X10 3/uL Normal 0.83-4.51 [facility] Comment on above: Performed By: #### L 100.0500, L501.9520, L500.2500 #### [facility] [address] [place], [address] Absolute Neut 6.8 X10 3/uL Normal 2.0-7.7 [facility] Comment on above: Performed By: #### L 100.0500, L501.9520, L500.2500 #### [facility] [address] [place], [address] Basophils/100 WBC (Bld) 0.5 % Normal 0-1 [facility] Comment on above: Performed By: #### L 100.0500, L501.9520, L500.2500 #### [facility] [address] [place], [address] Eosinophils/100 WBC (Bld) 0.3 % Normal 0-5 [facility] Comment on above: Performed By: #### L 100.0500, L501.9520, L500.2500 #### [facility] [address] [place], [address] Erythrocyte distribution width (RBC) [Ratio] 17.3 % High 11.6-14.6 [facility] Comment on above: Performed By: #### L 100.0500, L501.9520, L500.2500 #### [facility] [address] [place], [address] Hematocrit (Bld) [Volume fraction] 33.1 % Low 37-47 [facility] Comment on above: Performed By: #### L 100.0500, L501.9520, L500.2500 #### [facility] [address] [place], [address] Hemoglobin (Bld) [Mass/Vol] 10.2 g/dL Low 12.0-15.0 [facility] Comment on above: Performed By: #### L 100.0500, L501.9520, L500.2500 #### [facility] [address] [place], [address] IG% 0.300 Normal 0.0-0.9 [facility] Comment on above: Result Comment: IG% - Immature Granulocytes (promyelocytes, myelocytes and metamyelocytes) > 1% indicates that a LEFT SHIFT is Present. Performed By: #### L 100.0500, L501.9520, L500.2500 #### [facility] [address], [address] Lymphocytes/100 WBC (Bld) 16.6 % Low 19-41 [facility] Comment on above: Performed By: #### L 100.0500, L501.9520, L500.2500 #### [facility] [address], [address] MCH (RBC) [Entitic mass] 27.7 pg Normal 27.0-32.0 [facility] Comment on above: Performed By: #### L 100.0500, L501.9520, L500.2500 #### [facility] [address] [place], [address] MCHC (RBC) [Mass/Vol] 30.8 g/dL Low 32-36 [facility] Comment on above: Performed By: #### L 100.0500, L501.9520, L500.2500 #### [facility] [address] [place], [address] MCV (RBC) [Entitic vol] 89.9 fL Normal 81-99 [facility] Comment on above: Performed By: #### L 100.0500, L501.9520, L500.2500 #### [facility] [address] [place], [address] Monocytes/100 WBC (Bld) 11.8 % High 0-10 [facility] Comment on above: Performed By: #### L 100.0500, L501.9520, L500.2500 #### [facility] [address] [place], [address] Neutrophils/100 WBC (Bld) 70.5 % High 47-70 [facility] Comment on above: Performed By: #### L 100.0500, L501.9520, L500.2500 #### [facility] [address] [place], [address] Nucleated RBC (Bld) [#/Vol] 0 10*3/uL Normal 0-5 [facility] Comment on above: Performed By: #### L 100.0500, L501.9520, L500.2500 #### [facility] [address] [place], [address] Platelet mean volume (Bld) [Entitic vol] 10.5 fL Normal 6.2-12.0 [facility] Comment on above: Performed By: #### L 100.0500, L501.9520, L500.2500 #### [facility] [address] [place], [address] Platelets (Bld) [#/Vol] 483 10*3/uL High 150-450 [facility] Comment on above: Performed By: #### L 100.0500, L501.9520, L500.2500 #### [facility] [address] [place], [address] RBC (Bld) [#/Vol] 3.68 10*6/uL Low 4.2-5.4 [facility] Comment on above: Performed By: #### L 100.0500, L501.9520, L500.2500 #### [facility] [address] [place], [address] RDW SD 56.1 fl High 35.1-43.9 [facility] Comment on above: Performed By: #### L 100.0500, L501.9520, L500.2500 #### [facility] [address] [place], [address] WBC (Bld) [#/Vol] 9.7 10*3/uL Normal 4.4-11.0 [facility] Comment on above: Performed By: #### L 100.0500, L501.9520, L500.2500 #### [facility] [address] [place], [address] CTA Chest W/WO Contraston CTA Chest W/WO Contrast [facility] Imaging Services [address] [place] [address] CTA Chest W/WO Contrast MR#: [id number] Acct: [id number] Name: FARZANA HERRON Rep #: [id number] : 1940 F 84 From: Gage Schmidt MD PCP: Dr. Wayne Conde, Status: DEP ER Study: CTA Chest W/WO Contrast Date of Exam: 01/23/25 Exam# [id number] Ordering Dr: Frederic Garcia MD PROCEDURE: CTA [...] Frederic Garcia MD; Dr. Wayne Conde DO Director Of Market Analysis: Signed Normal [facility] Carbon dioxide measurementOr dered By: Frederic Garcia on 01-23-2025 CO2 [Moles/Vol] 23.9 mmol/L 22.0-29.0 [facility] Chloride measurementOrdered By: Frederic Garcia on 01-23-2025 Chloride [Moles/Vol] 96 mmol/L 96-108 [facility] Determination of fraction of inspired oxygenOrdered By: Frederic Garcia on 01-23-2025 Blood Gas Oxygen Percent 3.0 [facility] Emergency Department Summary on 01-23-2025 Emergency Department Summary [facility] Medical Records Department [address] [place] [address] Emergency Department Summary 01/23/25 MR#: [id number] Acct: [id number] Name: FARZANA HERRON Rep #: [id number] : 1940 84 From: Frederic Garcia MD [...] this is not necessarily listed on the fdc paperwork according to the RN. She presents because of the shortness of breath that is reported and low pulse ox in the 80s. [facility] Medical History Syncope and collapse [...] History acetaminophen 650 mg rectal 650 mg UT Q4H 01/23/25 Unknown His tory suppository albuterol [...] PO BID 01/23/25 Unknown Hist ory omega 8-hhl-nkk-fish oil 300 1 cap PO DAILY 01/23/25 [...] 06/2016) S (more content not included)... Normal [facility] Eosinophil percentageOrdered By: Frederic Garcia on 01-23-2025 Eosinophils/100 WBC (Bld) 0.3 % 0-5 [facility] Erythrocyte distribution wid th ratioOrdered By: Frederic Garcia on 01-23-2025 Erythrocyte distribution width (RBC) [Ratio] 17.3 % High 11.6-14.6 [facility] Erythrocyte distribution wid th standard deviationOrdered By: Frederic Garcia on 01-23-2025 Erythrocyte distribution width (RBC) [Entitic vol] 56.1 fL High 35.1-43.9 [facility] Erythrocyte distribution width (RBC) [Ratio] 56.1 fl High 35.1-43.9 [facility] Estimation of creatinine aneesh aranceOrdered By: Frederic Garcia on 01-23-2025 Estimated Creatinine Clearance Calc 31.10 ml/min Low 50-250 [facility] GFR/1.73 sq M.predicted donovan g non-blacks MDRD (S/P/Bld) [Vol rate/Area]Ordered By: Frederic Garcia on 01-23-2025 Estimated GFR (MDRD) Non-Af Amer 59 Low >60 [facility] Comment on above: mL/min/1.73m2 CKD-EP I Creatinine Equation (2020) Glomerular filtration rate ( GFR) estimation/1.73 sq m using serum, plasma, or whole bOrdered By: Frederic Garcia on 01-23-2025 GFR/1.73 sq M.predicted among non-blacks MDRD (S/P/Bld) [Vol rate/Area] 59 mL/min/{1.73_m2} Low >60 [facility] Comment on above: mL/min/1.73m2 CKD-EP I Creatinine Equation (2020) Hematocrit Auto (Bld) [Volum e fraction]Ordered By: Frederic Garcia on 01-23-2025 Hematocrit (Bld) [Volume fraction] 33.1 % Low 37-47 [facility] Hemoglobin measurementOrdere d By: Frederic Garcia on 01-23-2025 Hemoglobin (Bld) [Mass/Vol] 10.2 g/dL Low 12.0-15.0 [facility] Immature granulocytes/100 WB C Auto (Bld)Ordered By: Frederic Garcia on 01-23-2025 Immature granulocytes/100 WBC (Bld) 0.300 % 0.0-0.9 [facility] Comment on above: IG% - Immature Granu locytes (promyelocytes, myelocytes and metamyelocytes) > 1% indicates that a LEFT SHIFT is Present. Influenza virus A and B and SARS-CoV-2 (COVID-19) and Respiratory syncytial virus RNAOrdered By: Frederic Garcia on 01-23-2025 SARS-CoV-2 (COVID-19) RNA SARY+probe Ql (Unsp spec) [facility] L503.7505on 01-23-2025 Natriuretic peptide B (Bld) [Mass/Vol] 764 pg/mL Normal <=1800 [facility] Comment on above: Result Comment: Hear t Failure Unlikely: < 300 pg/mL Heart Failure Likely < 50 Years: > 450 pg/mL 50-75 Years: > 900 pg/mL >75 Years: > 1800 pg/mL Performed By: #### L 100.0500, L501.9520, L500.2500 #### [facility] [address] [facility] [place], [address] Laboratory - Chemistry and C hemistry - challengeOrdered By: Frederic Garcia on 01-23-2025 Natriuretic peptide B (Bld) [Mass/Vol] 764 pg/mL <1800 [facility] Comment on above: Heart Failure Unlike ly: < 300 pg/mLHeart Failure Likely< 50 Years: > 450 pg/mL50-75 Years: > 900 pg/mL>75 Years: > 1800 pg/mL Lymphocytes Auto (Unsp spec) [#/Vol]Ordered By: Frederic Garcia on 01-23-2025 Lymphocytes (Bld) [#/Vol] 1.61 10*3/uL 0.83-4.51 [facility] Lymphocytes/100 WBC Auto (Un sp spec)Ordered By: Frederic Garcia on 01-23-2025 Lymphocytes/100 WBC (Bld) 16.6 % Low 19-41 [facility] M100.678on 01-23-2025 M100.678 SARS-CoV-2 (COVID 19 ) Negative INFLUENZA A Negative INFLUENZA B Negative RSV PCR Negative Normal [facility] Comment on above: Performed By: #### L 100.0500, L501.9520, L500.2500 #### [facility] [address] [place], [place], [id number] MCV (mean corpuscular volume ) determinationOrdered By: Frederic Garcia on 01-23-2025 MCV (RBC) [Entitic vol] 89.9 fL 81-99 [facility] Mean corpuscular hemoglobin (MCH) determinationOrdered By: Frederic Garcia on 01-23-2025 MCH (RBC) [Entitic mass] 27.7 pg 27.0-32.0 [facility] Mean corpuscular hemoglobin concentration (MCHC) determinationOrdered By: Frederic Garcia on 01-23-2025 MCHC (RBC) [Mass/Vol] 30.8 g/dL Low 32-36 [facility] Mean platelet volume determi nationOrdered By: Frederic Garcia on 01-23-2025 Platelet mean volume (Bld) [Entitic vol] 10.5 fL 6.2-12.0 [facility] Measurement, pHOrdered By: A genoveva Garcia on 01-23-2025 pH (Unsp spec) 7.43 [pH] 7.35-7.45 [facility] Monocyte percentageOrdered B y: Frederic Garcia on 01-23-2025 Monocytes/100 WBC (Bld) 11.8 % High 0-10 [facility] Neutrophil percentageOrdered By: Frederic Garcia on 01-23-2025 Neutrophils/100 WBC (Bld) 70.5 % High 47-70 [facility] No Panel InformationOrdered By: Frederic Garcia on 01-23-2025 Blood Gas Sample Site R Radial [facility] Blood Gas Specimen Type ART [facility] Blood Gas Vent Mode Not entered [facility] Oxygen Delivery Device Cannula [facility] Nucleated red blood cell per centageOrdered By: Frederic Garcia on 01-23-2025 Nucleated RBC/100 WBC (Bld) [Ratio] 0 % 0-5 [facility] Oxygen saturation measuremen tOrdered By: Frederic Garcia on 01-23-2025 Blood Gas Oxygen Saturation 91 % Low 95-99 [facility] Partial pressure of carbon d ioxide measurementOrdered By: Frederic Garcia on 01-23-2025 Arterial Blood Partial Pressure CO2 45.0 mmHg 35-45 [facility] Partial pressure of oxygen m easurementOrdered By: Frederic Garcia on 01-23-2025 Arterial Blood Partial Pressure O2 59 mmHG Low 75-100 [facility] Platelet countOrdered By: Champ Garcia on 01-23-2025 Platelets (Bld) [#/Vol] 483 10*3/uL High 150-450 [facility] RBC Auto (Bld) [#/Vol]Ordere d By: Frederic Garcia on 01-23-2025 RBC (Bld) [#/Vol] 3.68 10*6/uL Low 4.2-5.4 [facility] Serum creatinine measurement (mass/volume)Ordered By: Frederic Garcia on 01-23-2025 Creatinine [Mass/Vol] 0.95 mg/dL 0.70-1.20 [facility] Serum glucose measurement (m ass/volume)Ordered By: Frederic Garcia on 01-23-2025 Glucose [Mass/Vol] 121 mg/dL High 70-99 [facility] Serum or plasma anion gap de termination (moles/volume)Ordered By: Frederic Garcia on 01-23-2025 Anion gap [Moles/Vol] 12 mmol/L 5-15 [facility] Serum or plasma calcium harish urement (mass/volume)Ordered By: Frederic Garcia on 01-23-2025 Calcium [Mass/Vol] 9.6 mg/dL 7.6-11.0 [facility] Serum or plasma potassium me asurementOrdered By: Frederic Garcia on 01-23-2025 Potassium [Moles/Vol] 5.1 mmol/L 3.3-5.1 [facility] Serum or plasma sodium measu rement (moles/volume)Ordered By: Frederic Garcia on 01-23-2025 Sodium [Moles/Vol] 132 mmol/L Low 133-145 [facility] Serum or plasma urea nitroge n measurement (mass/volume)Ordered By: Frederic Garcia on 01-23-2025 Urea nitrogen [Mass/Vol] 26 mg/dL High 4-19 [facility] Total carbon dioxide measure mentOrdered By: Frederic Garcia on 01-23-2025 Blood Gas Total CO2 31 mmol/L [facility] CO2 [Moles/Vol] 31 mmol/L [facility] White blood cell (WBC) count Ordered By: Frederic Garcia on 01-23-2025 WBC (Bld) [#/Vol] 9.7 10*3/uL 4.4-11.0 [facility] pH (Unsp spec)Ordered By: Champ Garcia on 01-23-2025 Blood Gas pH 7.43 7.35-7.45 [facility] BUN/creatinine ratioOrdered By: Leena Corado on 01-20-2025 Urea nitrogen/Creatinine [Mass ratio] 28.4 mg/mg High 10-20 [facility] Basic Metabolic Profile (BMP )on 01-20-2025 Anion gap [Moles/Vol] 10 mmol/L Normal 5-15 [facility] Comment on above: Order Comment: 508.1 Performed By: #### L 100.0500, L501.9520, L500.2500 #### [facility] [address] [place], [address] BUN/CRE 28.4 RATIO High 10-20 [facility] Comment on above: Order Comment: 508.1 Performed By: #### L 100.0500, L501.9520, L500.2500 #### [facility] [address] [place], [address] Calcium [Mass/Vol] 9.3 mg/dL Normal 7.6-11.0 [facility] Comment on above: Order Comment: 508.1 Performed By: #### L 100.0500, L501.9520, L500.2500 #### [facility] [address] [place], [address] Chloride [Moles/Vol] 99 mmol/L Normal 96-108 [facility] Comment on above: Order Comment: 508.1 Performed By: #### L 100.0500, L501.9520, L500.2500 #### [facility] [address] [place], [address] CO2 [Moles/Vol] 23.9 mmol/L Normal 22.0-29.0 [facility] Comment on above: Order Comment: 508.1 Performed By: #### L 100.0500, L501.9520, L500.2500 #### [facility] [address] [place], [address] Creatinine [Mass/Vol] 0.8 mg/dL Normal 0.6-1.0 [facility] Comment on above: Order Comment: 508.1 Performed By: #### L 100.0500, L501.9520, L500.2500 #### [facility] [address] [place], [address] GFR/1.73 sq M.predicted among non-blacks MDRD (S/P/Bld) [Vol rate/Area] 73 mL/min/{1.73_m2} Normal >60 [facility] Comment on above: Order Comment: 508.1 Result Comment: mL/m in/1.73m2 CKD-EPI Creatinine Equation (2020) Performed By: #### L 100.0500, L501.9520, L500.2500 #### [facility] [address] [place], [address] Glucose [Mass/Vol] 93 mg/dL Normal 70-99 [facility] Comment on above: Order Comment: 508.1 Performed By: #### L 100.0500, L501.9520, L500.2500 #### [facility] [address] [place], [address] Potassium [Moles/Vol] 4.8 mmol/L Normal 3.3-5.1 [facility] Comment on above: Order Comment: 508.1 Performed By: #### L 100.0500, L501.9520, L500.2500 #### [facility] [address] [place], [address] Sodium [Moles/Vol] 133 mmol/L Normal 133-145 [facility] Comment on above: Order Comment: 508.1 Performed By: #### L 100.0500, L501.9520, L500.2500 #### [facility] [address] [place], [address] Urea nitrogen [Mass/Vol] 22 mg/dL High 4-19 [facility] Comment on above: Order Comment: 508.1 Performed By: #### L 100.0500, L501.9520, L500.2500 #### [facility] [address] [place], [address] CBC-Complete Blood Cnt No Di ffon 01-20-2025 Erythrocyte distribution width (RBC) [Ratio] 17.4 % High 11.6-14.6 [facility] Comment on above: Order Comment: 508.1 Performed By: #### L 100.0500, L501.9520, L500.2500 #### [facility] [address] [place], [address] Hematocrit (Bld) [Volume fraction] 31.6 % Low 37-47 [facility] Comment on above: Order Comment: 508.1 Performed By: #### L 100.0500, L501.9520, L500.2500 #### [facility] [address] [place], [address] Hemoglobin (Bld) [Mass/Vol] 9.8 g/dL Low 12.0-15.0 [facility] Comment on above: Order Comment: 508.1 Performed By: #### L 100.0500, L501.9520, L500.2500 #### [facility] [address] [place], [address] MCH (RBC) [Entitic mass] 27.7 pg Normal 27.0-32.0 [facility] Comment on above: Order Comment: 508.1 Performed By: #### L 100.0500, L501.9520, L500.2500 #### [facility] [address] [place], [address] MCHC (RBC) [Mass/Vol] 31.0 g/dL Low 32-36 [facility] Comment on above: Order Comment: 508.1 Performed By: #### L 100.0500, L501.9520, L500.2500 #### [facility] [address] [place], [address] MCV (RBC) [Entitic vol] 89.3 fL Normal 81-99 [facility] Comment on above: Order Comment: 508.1 Performed By: #### L 100.0500, L501.9520, L500.2500 #### [facility] [address] [place], [address] Platelet mean volume (Bld) [Entitic vol] 10.4 fL Normal 6.2-12.0 [facility] Comment on above: Order Comment: 508.1 Performed By: #### L 100.0500, L501.9520, L500.2500 #### [facility] [address] [place], [address] Platelets (Bld) [#/Vol] 543 10*3/uL High 150-450 [facility] Comment on above: Order Comment: 508.1 Performed By: #### L 100.0500, L501.9520, L500.2500 #### [facility] [address] [place], [address] RBC (Bld) [#/Vol] 3.54 10*6/uL Low 4.2-5.4 [facility] Comment on above: Order Comment: 508.1 Performed By: #### L 100.0500, L501.9520, L500.2500 #### [facility] [address] [place], [address] RDW SD 54.4 fl High 35.1-43.9 [facility] Comment on above: Order Comment: 508.1 Performed By: #### L 100.0500, L501.9520, L500.2500 #### [facility] [address] [place], [address] WBC (Bld) [#/Vol] 4.9 10*3/uL Normal 4.4-11.0 [facility] Comment on above: Order Comment: 508.1 Performed By: #### L 100.0500, L501.9520, L500.2500 #### [facility] [address] [place], [address] Carbon dioxide measurementOr dered By: Leena Corado on 01-20-2025 CO2 [Moles/Vol] 23.9 mmol/L 22.0-29.0 [facility] Chloride measurementOrdered By: Leenawendy Corado on 01-20-2025 Chloride [Moles/Vol] 99 mmol/L 96-108 [facility] Creatinine [Moles/Vol]Ordere d By: Leena Corado on 01-20-2025 Creatinine [Mass/Vol] 0.8 mg/dL 0.6-1.0 [facility] Erythrocyte distribution wid th ratioOrdered By: Leena Corado on 01-20-2025 Erythrocyte distribution width (RBC) [Ratio] 17.4 % High 11.6-14.6 [facility] Erythrocyte distribution wid th standard deviationOrdered By: Leena Corado on 01-20-2025 Erythrocyte distribution width (RBC) [Entitic vol] 54.4 fL High 35.1-43.9 [facility] Erythrocyte distribution width (RBC) [Ratio] 54.4 fl High 35.1-43.9 [facility] GFR/1.73 sq M.predicted donovan g non-blacks MDRD (S/P/Bld) [Vol rate/Area]Ordered By: Leena Corado on 01-20-2025 Estimated GFR (MDRD) Non-Af Amer 73 >60 [facility] Comment on above: mL/min/1.73m2 CKD-EP I Creatinine Equation (2020) Glomerular filtration rate ( GFR) estimation/1.73 sq m using serum, plasma, or whole bOrdered By: Leena Corado on 01-20-2025 GFR/1.73 sq M.predicted among non-blacks MDRD (S/P/Bld) [Vol rate/Area] 73 mL/min/{1.73_m2} >60 [facility] Comment on above: mL/min/1.73m2 CKD-EP I Creatinine Equation (2020) Hematocrit Auto (Bld) [Volum e fraction]Ordered By: Leena Corado on 01-20-2025 Hematocrit (Bld) [Volume fraction] 31.6 % Low 37-47 [facility] Hemoglobin measurementOrdere d By: Leena Corado on 01-20-2025 Hemoglobin (Bld) [Mass/Vol] 9.8 g/dL Low 12.0-15.0 [facility] MCV (mean corpuscular volume ) determinationOrdered By: Leena Corado on 01-20-2025 MCV (RBC) [Entitic vol] 89.3 fL 81-99 [facility] Magnesiumon 01-20-2025 Magnesium [Mass/Vol] 1.3 mg/dL Low 1.5-2.2 [facility] Comment on above: Order Comment: 508.1 Performed By: #### L 100.0500, L501.9520, L500.2500 #### [facility] [address] [place] [address], [address] Magnesium (Unsp spec) [Mass/ Vol]Ordered By: Leena Corado on 01-20-2025 Magnesium [Mass/Vol] 1.3 mg/dL Low 1.5-2.2 [facility] Magnesium measurement (mass/ volume)Ordered By: Leena Corado on 01-20-2025 Magnesium (Unsp spec) [Mass/Vol] 1.3 mg/dL Low 1.5-2.2 [facility] Mean corpuscular hemoglobin (MCH) determinationOrdered By: Leena Corado on 01-20-2025 MCH (RBC) [Entitic mass] 27.7 pg 27.0-32.0 [facility] Mean corpuscular hemoglobin concentration (MCHC) determinationOrdered By: Leena Corado on 01-20-2025 MCHC (RBC) [Mass/Vol] 31.0 g/dL Low 32-36 [facility] Mean platelet volume determi nationOrdered By: Leena Corado on 01-20-2025 Platelet mean volume (Bld) [Entitic vol] 10.4 fL 6.2-12.0 [facility] Platelet countOrdered By: Malik Corado on 01-20-2025 Platelets (Bld) [#/Vol] 543 10*3/uL High 150-450 [facility] RBC Auto (Bld) [#/Vol]Ordere d By: Leena Corado on 01-20-2025 RBC (Bld) [#/Vol] 3.54 10*6/uL Low 4.2-5.4 [facility] Serum glucose measurement (m ass/volume)Ordered By: Leena Corado on 01-20-2025 Glucose [Mass/Vol] 93 mg/dL 70-99 [facility] Serum or plasma anion gap de termination (moles/volume)Ordered By: Leena Corado on 01-20-2025 Anion gap [Moles/Vol] 10 mmol/L 5-15 [facility] Serum or plasma calcium harish urement (mass/volume)Ordered By: Leena Corado on 01-20-2025 Calcium [Mass/Vol] 9.3 mg/dL 7.6-11.0 [facility] Serum or plasma creatinine m easurement (moles/volume)Ordered By: Leena Corado on 01-20-2025 Creatinine [Moles/Vol] 0.8 mg/dL 0.6-1.0 [facility] Serum or plasma potassium me asurementOrdered By: Leena Corado on 01-20-2025 Potassium [Moles/Vol] 4.8 mmol/L 3.3-5.1 [facility] Serum or plasma sodium measu rement (moles/volume)Ordered By: Leena Corado on 01-20-2025 Sodium [Moles/Vol] 133 mmol/L 133-145 [facility] Serum or plasma urea nitroge n measurement (mass/volume)Ordered By: Leena Corado on 01-20-2025 Urea nitrogen [Mass/Vol] 22 mg/dL High 4-19 [facility] White blood cell (WBC) count Ordered By: Leena Corado on 01-20-2025 WBC (Bld) [#/Vol] 4.9 10*3/uL 4.4-11.0 [facility] Basic Metabolic Profile (BMP )on 01-17-2025 BUN/CRE 33.7 RATIO High 10-20 [facility] Comment on above: Order Comment: 508.1 Performed By: #### L 100.0500, L501.9520, L500.2500 #### [facility] [address] [place], [address] CA,Total 8.9 mg/dL Normal 8.5-10.1 [facility] Comment on above: Order Comment: 508.1 Performed By: #### L 100.0500, L501.9520, L500.2500 #### [facility] [address] [place], [address] Chloride [Moles/Vol] 104 mmol/L Normal 98-107 [facility] Comment on above: Order Comment: 508.1 Performed By: #### L 100.0500, L501.9520, L500.2500 #### [facility] [address] [place], [address] CO2 [Moles/Vol] 21.0 mmol/L Normal 21.0-32.0 [facility] Comment on above: Order Comment: 508.1 Performed By: #### L 100.0500, L501.9520, L500.2500 #### [facility] [address] [place], [address] Creatinine [Mass/Vol] 0.95 mg/dL Normal 0.55-1.02 [facility] Comment on above: Order Comment: 508.1 Result Comment: The validity of the calculated GFR GFRAA in patients over 70 years has not been determined. Clinical correlation is essential. Performed By: #### L 100.0500, L501.9520, L500.2500 #### [facility] [address] [place], [address] EST GFR - AA 72 mL/min Normal >60 [facility] Comment on above: Order Comment: 508.1 Result Comment: Afri can [place] GFR Calc Performed By: #### L 100.0500, L501.9520, L500.2500 #### [facility] [address] [place], [address] GAP 10 Normal 5-15 [facility] Comment on above: Order Comment: 508.1 Performed By: #### L 100.0500, L501.9520, L500.2500 #### [facility] [address] [place], [address] GFR/1.73 sq M.predicted among non-blacks MDRD (S/P/Bld) [Vol rate/Area] 59 mL/min/{1.73_m2} Low >60 [facility] Comment on above: Order Comment: 508.1 Result Comment: Non- GFR Calc Performed By: #### L 100.0500, L501.9520, L500.2500 #### [facility] [address] [place], [address] Glucose [Mass/Vol] 92 mg/dL Normal 74-106 [facility] Comment on above: Order Comment: 508.1 Performed By: #### L 100.0500, L501.9520, L500.2500 #### [facility] [address] [place], [address] Potassium [Moles/Vol] 4.6 mmol/L Normal 3.5-5.1 [facility] Comment on above: Order Comment: 508.1 Performed By: #### L 100.0500, L501.9520, L500.2500 #### [facility] [address] [place], [address] Sodium [Moles/Vol] 135 mmol/L Low 136-145 [facility] Comment on above: Order Comment: 508.1 Performed By: #### L 100.0500, L501.9520, L500.2500 #### [facility] [address] [place], [address] Urea nitrogen [Mass/Vol] 32 mg/dL High 7-18 [facility] Comment on above: Order Comment: 508.1 Performed By: #### L 100.0500, L501.9520, L500.2500 #### [facility] [address] [place], [address] Blood urea nitrogen (BUN)/cr eatinine ratioOrdered By: Leena Corado on 01-17-2025 Urea nitrogen/Creatinine [Mass ratio] 33.7 mg/mg High 10-20 [facility] CBC-Complete Blood Cnt No Di ffon 01-17-2025 Erythrocyte distribution width (RBC) [Ratio] 16.9 % High 11.6-14.6 [facility] Comment on above: Order Comment: 508.1 Performed By: #### L 100.0500, L501.9520, L500.2500 #### [facility] [address] [place], [address] Hematocrit (Bld) [Volume fraction] 29.3 % Low 37-47 [facility] Comment on above: Order Comment: 508.1 Performed By: #### L 100.0500, L501.9520, L500.2500 #### [facility] [address] [place], [address] Hemoglobin (Bld) [Mass/Vol] 9.1 g/dL Low 12.0-15.0 [facility] Comment on above: Order Comment: 508.1 Performed By: #### L 100.0500, L501.9520, L500.2500 #### [facility] [address] [place], [address] MCH (RBC) [Entitic mass] 27.3 pg Normal 27.0-32.0 [facility] Comment on above: Order Comment: 508.1 Performed By: #### L 100.0500, L501.9520, L500.2500 #### [facility] [address] [place], [address] MCHC (RBC) [Mass/Vol] 31.1 g/dL Low 32-36 [facility] Comment on above: Order Comment: 508.1 Performed By: #### L 100.0500, L501.9520, L500.2500 #### [facility] [address] [place], [address] MCV (RBC) [Entitic vol] 88.0 fL Normal 81-99 [facility] Comment on above: Order Comment: 508.1 Performed By: #### L 100.0500, L501.9520, L500.2500 #### [facility] [address] [place], [address] Platelet mean volume (Bld) [Entitic vol] 10.5 fL Normal 6.2-12.0 [facility] Comment on above: Order Comment: 508.1 Performed By: #### L 100.0500, L501.9520, L500.2500 #### [facility] [address] [place], [address] Platelets (Bld) [#/Vol] 509 10*3/uL High 150-450 [facility] Comment on above: Order Comment: 508.1 Performed By: #### L 100.0500, L501.9520, L500.2500 #### [facility] [address] [place], [address] RBC (Bld) [#/Vol] 3.33 10*6/uL Low 4.2-5.4 [facility] Comment on above: Order Comment: 508.1 Performed By: #### L 100.0500, L501.9520, L500.2500 #### [facility] [address] [place], [address] RDW SD 52.6 fl High 35.1-43.9 [facility] Comment on above: Order Comment: 508.1 Performed By: #### L 100.0500, L501.9520, L500.2500 #### [facility] [address] [place], [address] WBC (Bld) [#/Vol] 9.6 10*3/uL Normal 4.4-11.0 [facility] Comment on above: Order Comment: 508.1 Performed By: #### L 100.0500, L501.9520, L500.2500 #### [facility] [address] [place], [address] Carbon dioxide measurementOr dered By: Leena Corado on 01-17-2025 CO2 [Moles/Vol] 21.0 mmol/L 21.0-32.0 [facility] Chloride measurementOrdered By: Leena Corado on 01-17-2025 Chloride [Moles/Vol] 104 mmol/L 98-107 [facility] Erythrocyte distribution wid th ratioOrdered By: Leena Corado on 01-17-2025 Erythrocyte distribution width (RBC) [Ratio] 16.9 % High 11.6-14.6 [facility] Erythrocyte distribution wid th standard deviationOrdered By: Leena Corado on 01-17-2025 Erythrocyte distribution width (RBC) [Entitic vol] 52.6 fL High 35.1-43.9 [facility] Erythrocyte distribution width (RBC) [Ratio] 52.6 fl High 35.1-43.9 [facility] Estimated glomerular filtrat ion rate (GFR) AmericanOrdered By: Leena Corado on 01-17-2025 Estimated GFR (MDRD) Amer 72 mL/min >60 [facility] Comment on above: GFR Calc Ferritinon 01-17-2025 Ferritin [Mass/Vol] 88 ng/mL Normal 8-252 [facility] Comment on above: Order Comment: 104.1 Performed By: #### L 100.0500, L501.5200, L500.2500 #### [facility] [address] [place], [address] Ferritin measurementOrdered By: Leena Corado on 01-17-2025 Ferritin [Mass/Vol] 88 ng/mL 8-252 [facility] Glomerular filtration rate ( GFR) estimationOrdered By: Leena Corado on 01-17-2025 Estimated GFR (MDRD) Non-Af Amer 59 mL/min Low >60 [facility] Comment on above: Non- GFR Calc GFR/1.73 sq M.predicted among non-blacks MDRD (S/P/Bld) [Vol rate/Area] 59 mL/min/{1.73_m2} Low >60 [facility] Comment on above: Non- GFR Calc Glucose measurementOrdered B y: Leena Corado on 01-17-2025 Glucose [Mass/Vol] 92 mg/dL 74-106 [facility] Hematocrit Auto (Bld) [Volum e fraction]Ordered By: Leena Corado on 01-17-2025 Hematocrit (Bld) [Volume fraction] 29.3 % Low 37-47 [facility] Hemoglobin measurementOrdere d By: Leena Corado on 01-17-2025 Hemoglobin (Bld) [Mass/Vol] 9.1 g/dL Low 12.0-15.0 [facility] Ironon 01-17-2025 Iron [Mass/Vol] 42 ug/dL Low 50-170 [facility] Comment on above: Order Comment: 508.1 Performed By: #### L 100.0500, L501.9520, L500.2500 #### [facility] [address] [place], [place], [address] Iron (Unsp spec) [Mass/Mass] Ordered By: Leena Corado on 01-17-2025 Iron [Mass/Vol] 42 ug/dL Low 50-170 [facility] Iron measurement (mass/mass) Ordered By: Leena Corado on 01-17-2025 Iron (Unsp spec) [Mass/Mass] 42 ug/dL Low 50-170 [facility] MCV (mean corpuscular volume ) determinationOrdered By: Leena Corado on 01-17-2025 MCV (RBC) [Entitic vol] 88.0 fL 81-99 [facility] Magnesiumon 01-17-2025 Magnesium [Mass/Vol] 1.4 mg/dL Low 1.6-2.6 [facility] Comment on above: Order Comment: 508.1 Performed By: #### L 100.0500, L501.9520, L500.2500 #### [facility] [address] [place], [place], [address] Magnesium measurementOrdered By: Leena Corado on 01-17-2025 Magnesium [Mass/Vol] 1.4 mg/dL Low 1.6-2.6 [facility] Mean corpuscular hemoglobin (MCH) determinationOrdered By: Leena Corado on 01-17-2025 MCH (RBC) [Entitic mass] 27.3 pg 27.0-32.0 [facility] Mean corpuscular hemoglobin concentration (MCHC) determinationOrdered By: Leena Corado on 01-17-2025 MCHC (RBC) [Mass/Vol] 31.1 g/dL Low 32-36 [facility] Mean platelet volume determi nationOrdered By: Leena Corado on 01-17-2025 Platelet mean volume (Bld) [Entitic vol] 10.5 fL 6.2-12.0 [facility] Platelet countOrdered By: Malik Corado on 01-17-2025 Platelets (Bld) [#/Vol] 509 10*3/uL High 150-450 [facility] Potassium measurementOrdered By: Leena Corado on 01-17-2025 Potassium [Moles/Vol] 4.6 mmol/L 3.5-5.1 [facility] RBC Auto (Bld) [#/Vol]Ordere d By: Leena Corado on 01-17-2025 RBC (Bld) [#/Vol] 3.33 10*6/uL Low 4.2-5.4 [facility] Serum anion gap measurementO rdered By: Leena Corado on 01-17-2025 Anion gap [Moles/Vol] 10 mmol/L 5-15 [facility] Serum or plasma calcium harish urement (mass/volume)Ordered By: Leena Corado on 01-17-2025 Calcium [Mass/Vol] 8.9 mg/dL 8.5-10.1 [facility] Serum or plasma creatinine m easurement (mass/volume)Ordered By: Leena Corado on 01-17-2025 Creatinine [Mass/Vol] 0.95 mg/dL 0.55-1.02 [facility] Comment on above: The validity of the calculated GFR & GFRAA in patients over 70 years has not been determined. Clinical correlation is essential. Serum or plasma urea nitroge n measurement (mass/volume)Ordered By: Leena Corado on 01-17-2025 Urea nitrogen [Mass/Vol] 32 mg/dL High 7-18 [facility] Sodium levelOrdered By: Nelson Corado on 01-17-2025 Sodium [Moles/Vol] 135 mmol/L Low 136-145 [facility] White blood cell (WBC) count Ordered By: Leena Corado on 01-17-2025 WBC (Bld) [#/Vol] 9.6 10*3/uL 4.4-11.0 [facility] 36-HK-Lktzbyz DOrdered By: Toma Corado on 01-13-2025 Vitamin D 25-Hydroxy 115.6 ng/mL [facility] Comment on above: Vitamin D [...] elevated values when tested with the [employer] CytoVivaaur Vitamin D assay. With fluorescein interference, observed Vitamin D values can be as high as >150 ng/mL (>375 nmol/L). Samples should be resubmitted post fluorescein clearance to ensure there is no interference with Vitamin D test results. Absolute lymphocyte countOrd ered By: Leena Corado on 01-13-2025 Lymphocytes Auto (Unsp spec) [#/Vol] 1.60 10*3/uL 0.83-4.51 [facility] Absolute neutrophil countOrd ered By: Leena Corado on 01-13-2025 Neutrophils (Bld) [#/Vol] 6.5 10*3/uL 2.0-7.7 [facility] Automated lymphocyte count a s percentage of total leukocytesOrdered By: Leena Corado on 01-13-2025 Lymphocytes/100 WBC Auto (Unsp spec) 16.1 % Low 19-41 [facility] Basic Metabolic Profile (BMP )on 01-13-2025 BUN/CRE 19.5 RATIO Normal 10-20 [facility] Comment on above: Order Comment: 508.1 Performed By: #### L 100.0500, L501.9520, L500.2500 #### [facility] [address] [place], [address] CA,Total 9.2 mg/dL Normal 8.5-10.1 [facility] Comment on above: Order Comment: 508.1 Performed By: #### L 100.0500, L501.9520, L500.2500 #### [facility] [address] [place], [address] Chloride [Moles/Vol] 104 mmol/L Normal 98-107 [facility] Comment on above: Order Comment: 508.1 Performed By: #### L 100.0500, L501.9520, L500.2500 #### [facility] [address] [place], [address] CO2 [Moles/Vol] 19.0 mmol/L Low 21.0-32.0 [facility] Comment on above: Order Comment: 508.1 Performed By: #### L 100.0500, L501.9520, L500.2500 #### [facility] [address] [place], [address] Creatinine [Mass/Vol] 0.87 mg/dL Normal 0.55-1.02 [facility] Comment on above: Order Comment: 508.1 Result Comment: The validity of the calculated GFR GFRAA in patients over 70 years has not been determined. Clinical correlation is essential. Performed By: #### L 100.0500, L501.9520, L500.2500 #### [facility] [address] [place], [address] EST GFR - AA 80 mL/min Normal >60 [facility] Comment on above: Order Comment: 508.1 Result Comment: Afri can [place] GFR Calc Performed By: #### L 100.0500, L501.9520, L500.2500 #### [facility] [address] [place], [address] GAP 11 Normal 5-15 [facility] Comment on above: Order Comment: 508.1 Performed By: #### L 100.0500, L501.9520, L500.2500 #### [facility] [address] [place], [address] GFR/1.73 sq M.predicted among non-blacks MDRD (S/P/Bld) [Vol rate/Area] 66 mL/min/{1.73_m2} Normal >60 [facility] Comment on above: Order Comment: 508.1 Result Comment: Non- GFR Calc Performed By: #### L 100.0500, L501.9520, L500.2500 #### [facility] [address] [place], [address] Glucose [Mass/Vol] 87 mg/dL Normal 74-106 [facility] Comment on above: Order Comment: 508.1 Performed By: #### L 100.0500, L501.9520, L500.2500 #### [facility] [address] [place], [address] Potassium [Moles/Vol] 4.0 mmol/L Normal 3.5-5.1 [facility] Comment on above: Order Comment: 508.1 Performed By: #### L 100.0500, L501.9520, L500.2500 #### [facility] [address] [place], [address] Sodium [Moles/Vol] 134 mmol/L Low 136-145 [facility] Comment on above: Order Comment: 508.1 Performed By: #### L 100.0500, L501.9520, L500.2500 #### [facility] [address] [place], [address] Urea nitrogen [Mass/Vol] 17 mg/dL Normal 7-18 [facility] Comment on above: Order Comment: 508.1 Performed By: #### L 100.0500, L501.9520, L500.2500 #### [facility] [address] [place], [address] Basophil percentageOrdered B y: Leena Corado on 01-13-2025 Basophils/100 WBC (Bld) 0.6 % 0-1 [facility] Blood urea nitrogen (BUN)/cr eatinine ratioOrdered By: Lenea Corado on 01-13-2025 Urea nitrogen/Creatinine [Mass ratio] 19.5 mg/mg 10-20 [facility] CBC W/Diff, Automatedon - 0 Absolute Lymph 1.60 X10 3/uL Normal 0.83-4.51 [facility] Comment on above: Order Comment: 508.1 Performed By: #### L 100.0500, L501.9520, L500.2500 #### [facility] [address] [place], [address] Absolute Neut 6.5 X10 3/uL Normal 2.0-7.7 [facility] Comment on above: Order Comment: 508.1 Performed By: #### L 100.0500, L501.9520, L500.2500 #### [facility] [address] [place], [address] Basophils/100 WBC (Bld) 0.6 % Normal 0-1 [facility] Comment on above: Order Comment: 508.1 Performed By: #### L 100.0500, L501.9520, L500.2500 #### [facility] [address] [place], [address] Eosinophils/100 WBC (Bld) 1.9 % Normal 0-5 [facility] Comment on above: Order Comment: 508.1 Performed By: #### L 100.0500, L501.9520, L500.2500 #### [facility] [address] [place], [address] Erythrocyte distribution width (RBC) [Ratio] 16.4 % High 11.6-14.6 [facility] Comment on above: Order Comment: 508.1 Performed By: #### L 100.0500, L501.9520, L500.2500 #### [facility] [address] [place], [address] Hematocrit (Bld) [Volume fraction] 31.5 % Low 37-47 [facility] Comment on above: Order Comment: 508.1 Performed By: #### L 100.0500, L501.9520, L500.2500 #### [facility] [address] [place], [address] Hemoglobin (Bld) [Mass/Vol] 9.7 g/dL Low 12.0-15.0 [facility] Comment on above: Order Comment: 508.1 Performed By: #### L 100.0500, L501.9520, L500.2500 #### [facility] [address] [place], [address] IG% 1.900 High 0.0-0.9 [facility] Comment on above: Order Comment: 508.1 Result Comment: IG% - Immature Granulocytes (promyelocytes, myelocytes and metamyelocytes) > 1% indicates that a LEFT SHIFT is Present. Performed By: #### L 100.0500, L501.9520, L500.2500 #### [facility] [address] [place], [address] Lymphocytes/100 WBC (Bld) 16.1 % Low 19-41 [facility] Comment on above: Order Comment: 508.1 Performed By: #### L 100.0500, L501.9520, L500.2500 #### [facility] [address] [place], [address] MCH (RBC) [Entitic mass] 26.6 pg Low 27.0-32.0 [facility] Comment on above: Order Comment: 508.1 Performed By: #### L 100.0500, L501.9520, L500.2500 #### [facility] [address] [place], [address] MCHC (RBC) [Mass/Vol] 30.8 g/dL Low 32-36 [facility] Comment on above: Order Comment: 508.1 Performed By: #### L 100.0500, L501.9520, L500.2500 #### [facility] [address] [place], [address] MCV (RBC) [Entitic vol] 86.3 fL Normal 81-99 [facility] Comment on above: Order Comment: 508.1 Performed By: #### L 100.0500, L501.9520, L500.2500 #### [facility] [address] [place], [address] Monocytes/100 WBC (Bld) 13.7 % High 0-10 [facility] Comment on above: Order Comment: 508.1 Performed By: #### L 100.0500, L501.9520, L500.2500 #### [facility] [address] [place], [address] Neutrophils/100 WBC (Bld) 65.8 % Normal 47-70 [facility] Comment on above: Order Comment: 508.1 Performed By: #### L 100.0500, L501.9520, L500.2500 #### [facility] [address] [place], [address] Nucleated RBC (Bld) [#/Vol] 0 10*3/uL Normal 0-5 [facility] Comment on above: Order Comment: 508.1 Performed By: #### L 100.0500, L501.9520, L500.2500 #### [facility] [address] [place], [address] Platelet mean volume (Bld) [Entitic vol] 10.4 fL Normal 6.2-12.0 [facility] Comment on above: Order Comment: 508.1 Performed By: #### L 100.0500, L501.9520, L500.2500 #### [facility] [address] [place], [address] Platelets (Bld) [#/Vol] 431 10*3/uL Normal 150-450 [facility] Comment on above: Order Comment: 508.1 Performed By: #### L 100.0500, L501.9520, L500.2500 #### [facility] [address] [place], [address] RBC (Bld) [#/Vol] 3.65 10*6/uL Low 4.2-5.4 [facility] Comment on above: Order Comment: 508.1 Performed By: #### L 100.0500, L501.9520, L500.2500 #### [facility] [address] [place], [address] RDW SD 50.6 fl High 35.1-43.9 [facility] Comment on above: Order Comment: 508.1 Performed By: #### L 100.0500, L501.9520, L500.2500 #### [facility] [address] [place], [address] WBC (Bld) [#/Vol] 9.9 10*3/uL Normal 4.4-11.0 [facility] Comment on above: Order Comment: 508.1 Performed By: #### L 100.0500, L501.9520, L500.2500 #### [facility] [address], [address] Carbon dioxide measurementOr dered By: Leena Corado on 01-13-2025 CO2 [Moles/Vol] 19.0 mmol/L Low 21.0-32.0 [facility] Chloride measurementOrdered By: Leena Corado on 01-13-2025 Chloride [Moles/Vol] 104 mmol/L 98-107 [facility] Eosinophil percentageOrdered By: Leena Corado on 01-13-2025 Eosinophils/100 WBC (Bld) 1.9 % 0-5 [facility] Erythrocyte distribution wid th ratioOrdered By: Leena Corado on 01-13-2025 Erythrocyte distribution width (RBC) [Ratio] 16.4 % High 11.6-14.6 [facility] Erythrocyte distribution wid th standard deviationOrdered By: Leena Corado on 01-13-2025 Erythrocyte distribution width (RBC) [Entitic vol] 50.6 fL High 35.1-43.9 [facility] Erythrocyte distribution width (RBC) [Ratio] 50.6 fl High 35.1-43.9 [facility] Estimated glomerular filtrat ion rate (GFR) AmericanOrdered By: Leena Corado on 01-13-2025 Estimated GFR (MDRD) Amer 80 mL/min >60 [facility] Comment on above: GFR Calc Glomerular filtration rate ( GFR) estimationOrdered By: Leena Corado on 01-13-2025 Estimated GFR (MDRD) Non-Af Amer 66 mL/min >60 [facility] Comment on above: Non- GFR Calc GFR/1.73 sq M.predicted among non-blacks MDRD (S/P/Bld) [Vol rate/Area] 66 mL/min/{1.73_m2} >60 [facility] Comment on above: Non- GFR Calc Glucose measurementOrdered B y: Leena Corado on 01-13-2025 Glucose [Mass/Vol] 87 mg/dL 74-106 [facility] Hematocrit Auto (Bld) [Volum e fraction]Ordered By: Leena Corado on 01-13-2025 Hematocrit (Bld) [Volume fraction] 31.5 % Low 37-47 [facility] Hemoglobin measurementOrdere d By: Leena Corado on 01-13-2025 Hemoglobin (Bld) [Mass/Vol] 9.7 g/dL Low 12.0-15.0 [facility] High density lipoprotein (HD L) measurementOrdered By: Leena Corado on 01-13-2025 Cholesterol in HDL [Mass/Vol] 36 mg/dL Low >40 [facility] Comment on above: The drugs N-Acetylcy steine and Metamizole may falsely depress this assay. Reference Range HDL <40 mg/dL Low HDL Cholesterol HDL >or= 60 mg/dL High HDL Cholesterol Immature granulocytes/100 WB C Auto (Bld)Ordered By: Leena Corado on 01-13-2025 Immature granulocytes/100 WBC (Bld) 1.900 % High 0.0-0.9 [facility] Comment on above: IG% - Immature Granu locytes (promyelocytes, myelocytes and metamyelocytes) > 1% indicates that a LEFT SHIFT is Present. Lipid Profileon 01-13-2025 Cholesterol [Mass/Vol] 91 mg/dL Normal 200 [facility] Comment on above: Order Comment: 508.1 Result Comment: <200 mg/dL Desirable 200-240 mg/dL Borderline >240 mg/dL High Risk Performed By: #### L 100.0500, L501.9520, L500.2500 #### [facility] [address] [place], [address] Cholesterol in HDL [Mass/Vol] 36 mg/dL Low [facility] Comment on above: Order Comment: 508.1 Result Comment: The drugs N-Acetylcysteine and Metamizole may falsely depress this assay. Reference Range HDL <40 mg/dL Low HDL Cholesterol HDL >or= 60 mg/dL High HDL Cholesterol Performed By: #### L 100.0500, L501.9520, L500.2500 #### [facility] [address] [place], [address] Cholesterol in LDL [Mass/Vol] 32 mg/dL Normal 0-130 [facility] Comment on above: Order Comment: 508.1 Performed By: #### L 100.0500, L501.9520, L500.2500 #### [facility] [address] [place], [address] Cholesterol in VLDL [Mass/Vol] 23 mg/dL Normal 5-40 [facility] Comment on above: Order Comment: 508.1 Performed By: #### L 100.0500, L501.9520, L500.2500 #### [facility] [address] [place], [address] Triglyceride [Mass/Vol] 113 mg/dL Normal [facility] Comment on above: Order Comment: 508.1 Result Comment: The drugs N-Acetylcysteine and Metamizole may falsely depress this assay. Serum Triglycerides Reference Interval Normal <150 mg/dL Borderline high 150 - 199 mg/dL High 200 - 499 mg/dL Very High > or = 500 mg/dL Performed By: #### L 100.0500, L501.9520, L500.2500 #### [facility] [address] [place], [address] Low density lipoprotein (LDL ) cholesterol measurementOrdered By: Leena Corado on 01-13-2025 Cholesterol in LDL [Mass/Vol] 32 mg/dL 0-130 [facility] Lymphocytes Auto (Unsp spec) [#/Vol]Ordered By: Leena Corado on 01-13-2025 Lymphocytes (Bld) [#/Vol] 1.60 10*3/uL 0.83-4.51 [facility] Lymphocytes/100 WBC Auto (Un sp spec)Ordered By: Leena Corado on 01-13-2025 Lymphocytes/100 WBC (Bld) 16.1 % Low 19-41 [facility] MCV (mean corpuscular volume ) determinationOrdered By: Leena Corado on 01-13-2025 MCV (RBC) [Entitic vol] 86.3 fL 81-99 [facility] Magnesiumon 01-13-2025 Magnesium [Mass/Vol] 1.6 mg/dL Normal 1.6-2.6 [facility] Comment on above: Order Comment: 508.1 Performed By: #### L 100.0500, L501.9520, L500.2500 #### [facility] [address] [place] [address], [address] Magnesium measurementOrdered By: Leena Corado on 01-13-2025 Magnesium [Mass/Vol] 1.6 mg/dL 1.6-2.6 [facility] Mean corpuscular hemoglobin (MCH) determinationOrdered By: Leena Corado on 01-13-2025 MCH (RBC) [Entitic mass] 26.6 pg Low 27.0-32.0 [facility] Mean corpuscular hemoglobin concentration (MCHC) determinationOrdered By: Leena Corado on 01-13-2025 MCHC (RBC) [Mass/Vol] 30.8 g/dL Low 32-36 [facility] Mean platelet volume determi nationOrdered By: Leena Corado on 01-13-2025 Platelet mean volume (Bld) [Entitic vol] 10.4 fL 6.2-12.0 [facility] Monocyte percentageOrdered B y: Leena Corado on 01-13-2025 Monocytes/100 WBC (Bld) 13.7 % High 0-10 [facility] Neutrophil percentageOrdered By: Leena Corado on 01-13-2025 Neutrophils/100 WBC (Bld) 65.8 % 47-70 [facility] Nucleated red blood cell per centageOrdered By: Leena Corado on 01-13-2025 Nucleated RBC/100 WBC (Bld) [Ratio] 0 % 0-5 [facility] Platelet countOrdered By: Malik Corado on 01-13-2025 Platelets (Bld) [#/Vol] 431 10*3/uL 150-450 [facility] Potassium measurementOrdered By: Leena Corado on 01-13-2025 Potassium [Moles/Vol] 4.0 mmol/L 3.5-5.1 [facility] RBC Auto (Bld) [#/Vol]Ordere d By: Leena Corado on 01-13-2025 RBC (Bld) [#/Vol] 3.65 10*6/uL Low 4.2-5.4 [facility] Serum anion gap measurementO rdered By: Leena Corado on 01-13-2025 Anion gap [Moles/Vol] 11 mmol/L 5-15 [facility] Serum or plasma calcium harish urement (mass/volume)Ordered By: Leena Corado on 01-13-2025 Calcium [Mass/Vol] 9.2 mg/dL 8.5-10.1 [facility] Serum or plasma cholesterol measurement (mass/volume)Ordered By: Leena Corado on 01-13-2025 Cholesterol [Mass/Vol] 91 mg/dL <200 [facility] Comment on above: <200 mg/dL Desirable 200-240 mg/dL Borderline >240 mg/dL High Risk Serum or plasma creatinine m easurement (mass/volume)Ordered By: Leena Corado on 01-13-2025 Creatinine [Mass/Vol] 0.87 mg/dL 0.55-1.02 [facility] Comment on above: The validity of the calculated GFR & GFRAA in patients over 70 years has not been determined. Clinical correlation is essential. Serum or plasma thyroid stim ulating hormone (TSH) measurement (units/volume)Ordered By: Leena Corado on 01-13-2025 TSH Qn 3.180 uIU/mL 0.358-3.74 0 [facility] Serum or plasma urea nitroge n measurement (mass/volume)Ordered By: Leena Corado on 01-13-2025 Urea nitrogen [Mass/Vol] 17 mg/dL 7-18 [facility] Sodium levelOrdered By: Nelson Corado on 01-13-2025 Sodium [Moles/Vol] 134 mmol/L Low 136-145 [facility] TSH QnOrdered By: Leena jacobo on 01-13-2025 Thyroid Stimulating Hormone (TSH) 3.180 uIU/mL 0.358-3.74 0 [facility] Thyroid Stim Hormone (TSH)on 01-13-2025 TSH 3.180 uIU/mL Normal 0.358-3.74 0 [facility] Comment on above: Order Comment: 508.1 Performed By: #### L 100.0500, L501.9520, L500.2500 #### [facility] [address] [place], [place], [id number] Triglycerides measurementOrd ered By: Leena Corado on 01-13-2025 Triglyceride [Mass/Vol] 113 mg/dL <199 [facility] Comment on above: The drugs N-Acetylcy steine and Metamizole may falsely depress this assay.Serum Triglycerides Reference Interval Normal <150 mg/dL Borderline high 150 - 199 mg/dL High 200 - 499 mg/dL Very High > or = 500 mg/dL Very low density lipoprotein (VLDL) cholesterol measurementOrdered By: Leena Corado on 01-13-2025 Very low density lipoprotein (VLDL) cholesterol measurement 23 mg/dL 5-40 [facility] VLDL Cholesterol 23 mg/dL 5-40 [facility] Vitamin B12on 01-13-2025 Cobalamin (Vitamin B12) [Mass/Vol] pg/mL High 211-911 [facility] Comment on above: Order Comment: 508.1 Performed By: #### L 100.0500, L501.9520, L500.2500 #### [facility] [address] [place], [place], [address] Vitamin B12 measurementOrder ed By: Leena Corado on 01-13-2025 Vitamin B12 Level > 2000 pg/mL High 211-911 [facility] Vitamin D,25 Hydroxyon 01-13 Vitamin D 25-OH 115.6 ng/mL Normal [facility] Comment on above: Order Comment: 508.1 [...] By: #### L 100.0500, L501.9520, L500.2500 #### [facility] [address] [place], [place], [id number] White blood cell (WBC) count Ordered By: Leena Corado on 01-13-2025 WBC (Bld) [#/Vol] 9.9 10*3/uL 4.4-11.0 [facility] Lower GI hemoglobin IA Ql (S tl)Ordered By: Maynor Cox on 01-11-2025 Stool Occult Blood (JENNIFER) Positive Abnormal [facility] Magnesiumon 01-11-2025 Magnesium [Mass/Vol] 1.9 mg/dL Normal 1.6-2.6 [facility] Comment on above: Performed By: #### L 100.0500, L501.9520, L500.2500 #### [facility] [address] [place], [place], [id number] Magnesium measurementOrdered By: Maynor Cox on 01-11-2025 Magnesium [Mass/Vol] 1.9 mg/dL 1.6-2.6 [facility] Phosphoruson 01-11-2025 Phosphate [Mass/Vol] 3.6 mg/dL Normal 2.5-4.9 [facility] Comment on above: Performed By: #### L 100.0500, L501.9520, L500.2500 #### [facility] [address] [place], [place], [id number] Phosphorus measurementOrdere d By: Maynor Cox on 01-11-2025 Phosphorus Level 3.6 mg/dL 2.5-4.9 [facility] Stool Occult Blood iFOBon STOB Positive Normal [facility] Comment on above: Performed By: #### M 100.7900 ####[facility] [address] [place], [place], [address] Stool gastrointestinal hemog lobin detection by immunologic methodOrdered By: Maynor Cox on 01-11-2025 Lower GI hemoglobin IA Ql (Stl) Positive Abnormal [facility] Absolute lymphocyte countOrd ered By: Maynor Cox on 01-10-2025 Lymphocytes Auto (Unsp spec) [#/Vol] 1.54 10*3/uL 0.83-4.51 [facility] Absolute neutrophil countOrd ered By: Maynor Cox on 01-10-2025 Neutrophils (Bld) [#/Vol] 8.4 10*3/uL High 2.0-7.7 [facility] Albumin to globulin ratioOrd ered By: Maynor Cox on 01-10-2025 Albumin/Globulin [Mass ratio] 0.6 {ratio} Low 0.9-2.4 [facility] Automated lymphocyte count a s percentage of total leukocytesOrdered By: Maynor Cox on 01-10-2025 Lymphocytes/100 WBC Auto (Unsp spec) 13.2 % Low 19-41 [facility] Basophil percentageOrdered B y: Maynor Cox on 01-10-2025 Basophils/100 WBC (Bld) 0.2 % 0-1 [facility] Bilirubin, totalOrdered By: Maynor Cox on 01-10-2025 Bilirubin [Mass/Vol] 0.80 mg/dL 0.20-1.00 [facility] Comment on above: For patients on eltr ombopag therapy, use of Dimension [place] TBIL is not recommended. Blood urea nitrogen (BUN)/cr eatinine ratioOrdered By: Maynor Cox on 01-10-2025 Urea nitrogen/Creatinine [Mass ratio] 27.8 mg/mg High 10-20 [facility] CBC W/Diff, Automatedon 12-25 Absolute Lymph 1.54 X10 3/uL Normal 0.83-4.51 [facility] Comment on above: Performed By: #### L 100.0100, L500.4050, L501.5200, L501.2300 ####[facility] [address] [place], [address] Absolute Neut 8.4 X10 3/uL High 2.0-7.7 [facility] Comment on above: Performed By: #### L 100.0100, L500.4050, L501.5200, L501.2300 ####[facility] [address] [place], [address] Basophils/100 WBC (Bld) 0.2 % Normal 0-1 [facility] Comment on above: Performed By: #### L 100.0100, L500.4050, L501.5200, L501.2300 ####[facility] [address] [place], [address] Eosinophils/100 WBC (Bld) 0.9 % Normal 0-5 [facility] Comment on above: Performed By: #### L 100.0100, L500.4050, L501.5200, L501.2300 ####[facility] [address] [place], [address] Erythrocyte distribution width (RBC) [Ratio] 16.0 % High 11.6-14.6 [facility] Comment on above: Performed By: #### L 100.0100, L500.4050, L501.5200, L501.2300 ####[facility] [address] [place], [address] Hematocrit (Bld) [Volume fraction] 27.1 % Low 37-47 [facility] Comment on above: Performed By: #### L 100.0100, L500.4050, L501.5200, L501.2300 ####[facility] [address] [place], [address] Hemoglobin (Bld) [Mass/Vol] 8.6 g/dL Low 12.0-15.0 [facility] Comment on above: Performed By: #### L 100.0100, L500.4050, L501.5200, L501.2300 ####[facility] [address] [place], [address] IG% 0.800 Normal 0.0-0.9 [facility] Comment on above: Result Comment: IG% - Immature Granulocytes (promyelocytes, myelocytes and metamyelocytes) > 1% indicates that a LEFT SHIFT is Present. Performed By: #### L 100.0100, L500.4050, L501.5200, L501.2300 ####[facility] [address] [place], [address] Lymphocytes/100 WBC (Bld) 13.2 % Low 19-41 [facility] Comment on above: Performed By: #### L 100.0100, L500.4050, L501.5200, L501.2300 ####[facility] [address] [place], [address] MCH (RBC) [Entitic mass] 27.0 pg Normal 27.0-32.0 [facility] Comment on above: Performed By: #### L 100.0100, L500.4050, L501.5200, L501.2300 ####[facility] [address] [place], [address] MCHC (RBC) [Mass/Vol] 31.7 g/dL Low 32-36 [facility] Comment on above: Performed By: #### L 100.0100, L500.4050, L501.5200, L501.2300 ####[facility] [address] [place], [address] MCV (RBC) [Entitic vol] 85.0 fL Normal 81-99 [facility] Comment on above: Performed By: #### L 100.0100, L500.4050, L501.5200, L501.2300 ####[facility] [address] [place], [address] Monocytes/100 WBC (Bld) 12.8 % High 0-10 [facility] Comment on above: Performed By: #### L 100.0100, L500.4050, L501.5200, L501.2300 ####[facility] [address] [place], [address] Neutrophils/100 WBC (Bld) 72.1 % High 47-70 [facility] Comment on above: Performed By: #### L 100.0100, L500.4050, L501.5200, L501.2300 ####[facility] [address] [place], [address] Nucleated RBC (Bld) [#/Vol] 0 10*3/uL Normal 0-5 [facility] Comment on above: Performed By: #### L 100.0100, L500.4050, L501.5200, L501.2300 ####[facility] [address] [place], [address] Platelet mean volume (Bld) [Entitic vol] 10.8 fL Normal 6.2-12.0 [facility] Comment on above: Performed By: #### L 100.0100, L500.4050, L501.5200, L501.2300 ####[facility] [address] [place], [address] Platelets (Bld) [#/Vol] 337 10*3/uL Normal 150-450 [facility] Comment on above: Performed By: #### L 100.0100, L500.4050, L501.5200, L501.2300 ####[facility] [address] [place], [address] RBC (Bld) [#/Vol] 3.19 10*6/uL Low 4.2-5.4 [facility] Comment on above: Performed By: #### L 100.0100, L500.4050, L501.5200, L501.2300 ####[facility] [address] [place], [address] RDW SD 49.5 fl High 35.1-43.9 [facility] Comment on above: Performed By: #### L 100.0100, L500.4050, L501.5200, L501.2300 ####[facility] [address] [place], [address] WBC (Bld) [#/Vol] 11.7 10*3/uL High 4.4-11.0 [facility] Comment on above: Performed By: #### L 100.0100, L500.4050, L501.5200, L501.2300 ####[facility] [address] [place], [address] Carbon dioxide measurementOr dered By: Maynor Cox on 01-10-2025 CO2 [Moles/Vol] 18.0 mmol/L Low 21.0-32.0 [facility] Chloride measurementOrdered By: Maynor Cox on 01-10-2025 Chloride [Moles/Vol] 106 mmol/L 98-107 [facility] Comprehensive Metabolic Prof ilon 01-10-2025 Albumin [Mass/Vol] 2.2 g/dL Low 3.2-5.0 [facility] Comment on above: Performed By: #### L 100.0100, L500.4050, L501.5200, L501.2300 ####[facility] [address] [place], [address] Albumin/Globulin [Mass ratio] 0.6 {ratio} Low 0.9-2.4 [facility] Comment on above: Performed By: #### L 100.0100, L500.4050, L501.5200, L501.2300 ####[facility] [address] [place], [address] ALK P 99 U/L Normal 45-117 [facility] Comment on above: Performed By: #### L 100.0100, L500.4050, L501.5200, L501.2300 ####[facility] [address] [place], [address] ALT [Catalytic activity/Vol] 82 U/L High 13-56 [facility] Comment on above: Performed By: #### L 100.0100, L500.4050, L501.5200, L501.2300 ####[facility] [address] [place], [address] AST [Catalytic activity/Vol] 99 U/L High 15-37 [facility] Comment on above: Performed By: #### L 100.0100, L500.4050, L501.5200, L501.2300 ####[facility] [address] [place], [address] Bilirubin [Mass/Vol] 0.80 mg/dL Normal 0.20-1.00 [facility] Comment on above: Result Comment: For patients on eltrombopag therapy, use of Dimension [place] TBIL is not recommended. Performed By: #### L 100.0100, L500.4050, L501.5200, L501.2300 ####[facility] [address] [place], [address] BUN/CRE 27.8 RATIO High 10-20 [facility] Comment on above: Performed By: #### L 100.0100, L500.4050, L501.5200, L501.2300 ####[facility] [address] [place], [address] CA,Total 8.8 mg/dL Normal 8.5-10.1 [facility] Comment on above: Performed By: #### L 100.0100, L500.4050, L501.5200, L501.2300 ####[facility] [address] [place], [address] Chloride [Moles/Vol] 106 mmol/L Normal 98-107 [facility] Comment on above: Performed By: #### L 100.0100, L500.4050, L501.5200, L501.2300 ####[facility] [address] [place], [address] CO2 [Moles/Vol] 18.0 mmol/L Low 21.0-32.0 [facility] Comment on above: Performed By: #### L 100.0100, L500.4050, L501.5200, L501.2300 ####[facility] [address] [place], [address] Creatinine [Mass/Vol] 0.94 mg/dL Normal 0.55-1.02 [facility] Comment on above: Result Comment: The validity of the calculated GFR GFRAA in patients over 70 years has not been determined. Clinical correlation is essential. Performed By: #### L 100.0100, L500.4050, L501.5200, L501.2300 ####[facility] [address] [place], [address] ECRCL 31.43 ml/min Normal [facility] Comment on above: Performed By: #### L 100.0100, L500.4050, L501.5200, L501.2300 ####[facility] [address] [place], [address] EST GFR - AA 73 mL/min Normal >60 [facility] Comment on above: Result Comment: Afri can [place] GFR Calc Performed By: #### L 100.0100, L500.4050, L501.5200, L501.2300 ####[facility] [address] [place], [address] GAP 11 Normal 5-15 [facility] Comment on above: Performed By: #### L 100.0100, L500.4050, L501.5200, L501.2300 ####[facility] [address] [place], [address] GFR/1.73 sq M.predicted among non-blacks MDRD (S/P/Bld) [Vol rate/Area] 61 mL/min/{1.73_m2} Normal >60 [facility] Comment on above: Result Comment: Non- GFR Calc Performed By: #### L 100.0100, L500.4050, L501.5200, L501.2300 ####[facility] [address] [place], [address] Globulin (S) [Mass/Vol] 3.9 g/dL Normal 2.2-4.2 [facility] Comment on above: Performed By: #### L 100.0100, L500.4050, L501.5200, L501.2300 ####[facility] [address] [place], [address] Glucose [Mass/Vol] 83 mg/dL Normal 74-106 [facility] Comment on above: Performed By: #### L 100.0100, L500.4050, L501.5200, L501.2300 ####[facility] [address] [place], [address] Potassium [Moles/Vol] 4.4 mmol/L Normal 3.5-5.1 [facility] Comment on above: Performed By: #### L 100.0100, L500.4050, L501.5200, L501.2300 ####[facility] [address] [place], [address] Sodium [Moles/Vol] 135 mmol/L Low 136-145 [facility] Comment on above: Performed By: #### L 100.0100, L500.4050, L501.5200, L501.2300 ####[facility] [address] [place], [address] T PROT 6.1 g/dL Low 6.4-8.2 [facility] Comment on above: Performed By: #### L 100.0100, L500.4050, L501.5200, L501.2300 ####[facility] [address] [place], [address] Urea nitrogen [Mass/Vol] 26 mg/dL High 7-18 [facility] Comment on above: Performed By: #### L 100.0100, L500.4050, L501.5200, L501.2300 ####[facility] [address] [place], [address] Eosinophil percentageOrdered By: Maynor Cox on 01-10-2025 Eosinophils/100 WBC (Bld) 0.9 % 0-5 [facility] Erythrocyte distribution wid th ratioOrdered By: Maynor Cox on 01-10-2025 Erythrocyte distribution width (RBC) [Ratio] 16.0 % High 11.6-14.6 [facility] Erythrocyte distribution wid th standard deviationOrdered By: Maynor Cox on 01-10-2025 Erythrocyte distribution width (RBC) [Entitic vol] 49.5 fL High 35.1-43.9 [facility] Erythrocyte distribution width (RBC) [Ratio] 49.5 fl High 35.1-43.9 [facility] Estimated glomerular filtrat ion rate (GFR) AmericanOrdered By: Maynor Cox on 01-10-2025 Estimated GFR (MDRD) Amer 73 mL/min >60 [facility] Comment on above: GFR Calc Estimation of creatinine aneesh aranceOrdered By: Maynor Cox on 01-10-2025 Estimated Creatinine Clearance Calc 31.43 ml/min [facility] Glomerular filtration rate ( GFR) estimationOrdered By: Maynor Cox on 01-10-2025 Estimated GFR (MDRD) Non-Af Amer 61 mL/min >60 [facility] Comment on above: Non- GFR Calc GFR/1.73 sq M.predicted among non-blacks MDRD (S/P/Bld) [Vol rate/Area] 61 mL/min/{1.73_m2} >60 [facility] Comment on above: Non- GFR Calc Glucose measurementOrdered B y: Maynor Cox on 01-10-2025 Glucose [Mass/Vol] 83 mg/dL 74-106 [facility] Hematocrit Auto (Bld) [Volum e fraction]Ordered By: Maynor Cox on 01-10-2025 Hematocrit (Bld) [Volume fraction] 27.1 % Low 37-47 [facility] Hemoglobin measurementOrdere d By: Maynor Cox on 01-10-2025 Hemoglobin (Bld) [Mass/Vol] 8.6 g/dL Low 12.0-15.0 [facility] Immature granulocytes/100 WB C Auto (Bld)Ordered By: Maynor Cox on 01-10-2025 Immature granulocytes/100 WBC (Bld) 0.800 % 0.0-0.9 [facility] Comment on above: IG% - Immature Granu locytes (promyelocytes, myelocytes and metamyelocytes) > 1% indicates that a LEFT SHIFT is Present. Laboratory - Chemistry and C hemistry - challengeOrdered By: Maynor Cox on 01-10-2025 AST [Catalytic activity/Vol] 99 U/L High 15-37 [facility] Lymphocytes Auto (Unsp spec) [#/Vol]Ordered By: Maynor Cox on 01-10-2025 Lymphocytes (Bld) [#/Vol] 1.54 10*3/uL 0.83-4.51 [facility] Lymphocytes/100 WBC Auto (Un sp spec)Ordered By: Maynor Cox on 01-10-2025 Lymphocytes/100 WBC (Bld) 13.2 % Low 19-41 [facility] MCV (mean corpuscular volume ) determinationOrdered By: Maynor Cox on 01-10-2025 MCV (RBC) [Entitic vol] 85.0 fL 81-99 [facility] Magnesiumon 01-10-2025 Magnesium [Mass/Vol] 1.4 mg/dL Low 1.6-2.6 [facility] Comment on above: Performed By: #### L 100.0100, L500.4050, L501.5200, L501.2300 ####[facility] [address] [place], [address] Mean corpuscular hemoglobin (MCH) determinationOrdered By: Maynor Cox on 01-10-2025 MCH (RBC) [Entitic mass] 27.0 pg 27.0-32.0 [facility] Mean corpuscular hemoglobin concentration (MCHC) determinationOrdered By: Maynor Cox on 01-10-2025 MCHC (RBC) [Mass/Vol] 31.7 g/dL Low 32-36 [facility] Mean platelet volume determi nationOrdered By: Maynor Cox on 01-10-2025 Platelet mean volume (Bld) [Entitic vol] 10.8 fL 6.2-12.0 [facility] Monocyte percentageOrdered B y: Maynor Cox on 01-10-2025 Monocytes/100 WBC (Bld) 12.8 % High 0-10 [facility] Neutrophil percentageOrdered By: Maynor Cox on 01-10-2025 Neutrophils/100 WBC (Bld) 72.1 % High 47-70 [facility] Nucleated red blood cell per centageOrdered By: Maynor Cox on 01-10-2025 Nucleated RBC/100 WBC (Bld) [Ratio] 0 % 0-5 [facility] Phosphoruson 01-10-2025 Phosphate [Mass/Vol] 1.8 mg/dL Low 2.5-4.9 [facility] Comment on above: Performed By: #### L 100.0100, L500.4050, L501.5200, L501.2300 ####[facility] [address] [place], [address] Platelet countOrdered By: David Cox on 01-10-2025 Platelets (Bld) [#/Vol] 337 10*3/uL 150-450 [facility] Potassium measurementOrdered By: Maynor Cox on 01-10-2025 Potassium [Moles/Vol] 4.4 mmol/L 3.5-5.1 [facility] RBC Auto (Bld) [#/Vol]Ordere d By: Maynor Cox on 01-10-2025 RBC (Bld) [#/Vol] 3.19 10*6/uL Low 4.2-5.4 [facility] Serum anion gap measurementO rdered By: Maynor Cox on 01-10-2025 Anion gap [Moles/Vol] 11 mmol/L 5-15 [facility] Serum globulin measurementOr dered By: Maynor Cox on 01-10-2025 Globulin (S) [Mass/Vol] 3.9 g/dL 2.2-4.2 [facility] Serum or plasma alanine german otransferase (ALT) measurementOrdered By: Maynor Cox on 01-10-2025 ALT [Catalytic activity/Vol] 82 U/L High 13-56 [facility] Serum or plasma albumin harish urement (mass/volume)Ordered By: Maynor Cox on 01-10-2025 Albumin [Mass/Vol] 2.2 g/dL Low 3.2-5.0 [facility] Serum or plasma alkaline didier sphatase measurementOrdered By: Maynor Cox on 01-10-2025 ALP [Catalytic activity/Vol] 99 U/L 45-117 [facility] Serum or plasma calcium harish urement (mass/volume)Ordered By: Maynor Cox on 01-10-2025 Calcium [Mass/Vol] 8.8 mg/dL 8.5-10.1 [facility] Serum or plasma creatinine m easurement (mass/volume)Ordered By: Maynor Cox on 01-10-2025 Creatinine [Mass/Vol] 0.94 mg/dL 0.55-1.02 [facility] Comment on above: The validity of the calculated GFR & GFRAA in patients over 70 years has not been determined. Clinical correlation is essential. Serum or plasma urea nitroge n measurement (mass/volume)Ordered By: Maynor Cox on 01-10-2025 Urea nitrogen [Mass/Vol] 26 mg/dL High 7-18 [facility] Sodium levelOrdered By: Nicolas Cox on 01-10-2025 Sodium [Moles/Vol] 135 mmol/L Low 136-145 [facility] Total proteinOrdered By: Rhett Cox on 01-10-2025 Protein [Mass/Vol] 6.1 g/dL Low 6.4-8.2 [facility] Vitamin B12on 01-10-2025 Cobalamin (Vitamin B12) [Mass/Vol] pg/mL High 211-911 [facility] Comment on above: Performed By: #### L 100.0500, L501.9520, L500.2500 #### [facility] [address] [place], [address] White blood cell (WBC) count Ordered By: Maynor Cox on 01-10-2025 WBC (Bld) [#/Vol] 11.7 10*3/uL High 4.4-11.0 [facility] 12 Lead EKGon 01-09-2025 12 Lead EKG [facility] [address] [place] [address] 12 Lead EKG 01/09/25 0127 MR#: [id number] Acct: [id number] Name: FARZANA HERRON Rep #: [id number] : 1940 84 From: Macy Powell MD Attending Dr: Dr. Tan Triplett MD Status: DIS PETERSON Ordering Dr: Jaxson Scott DO Date: 01/09/25 Location: [facility] Sex: F C Admitted: 01/09/25 Test Reason [...] Abnormal ECG Confirmed by ZACH GARCIA, JOSSELIN ([id number]), proposal editor RODY ANDERSEN ([id number]) on 01/10/2025 8:24:10 AM Referred By: Confirmed By: JOSSELIN POWELL MD 01/10/25 0824 Date Macy Powell MD CC: Dr. Wayne Conde DO; Dr. Tan Triplett MD; Jaxson Scott DO Signed Normal [facility] Abdomen/Pelvis without Conto n 01-09-2025 Abdomen/Pelvis without Cont [facility] Imaging Services [address] [place] [id number] Abdomen/Pelvis without Cont MR#: [id number] Acct: [id number] Name: FARZANA HERRON Rep #: [id number] : 1940 F 84 From: Nelson Steele i, DO PCP: Dr. Wayne Conde DO Status: DIS PETERSON Study: Abdomen/Pelvis without Cont Date of Exam: 12/25 05/18 Exam# [id number] Ordering Dr: Maynor Costa DO PROCEDURE: Noncontrast [...] technique). Reading Location: [facility] CC: Dr. Maynor Costa, DO; Dr. Wayne Conde DO Director Of Market Analysis: Signed Normal [facility] Basic Metabolic Profile (BMP )on 01-09-2025 BUN/CRE 33.8 RATIO High 10-20 [facility] Comment on above: Performed By: #### L 100.0500, L501.5200, L500.2500 #### [facility] [address] [place], [address] CA,Total 8.6 mg/dL Normal 8.5-10.1 [facility] Comment on above: Performed By: #### L 100.0500, L501.5200, L500.2500 #### [facility] [address] [place], [address] Chloride [Moles/Vol] 102 mmol/L Normal 98-107 [facility] Comment on above: Performed By: #### L 100.0500, L501.5200, L500.2500 #### [facility] [address] [place], [address] CO2 [Moles/Vol] 19.0 mmol/L Low 21.0-32.0 [facility] Comment on above: Performed By: #### L 100.0500, L501.5200, L500.2500 #### [facility] [address] [place], [address] Creatinine [Mass/Vol] 1.48 mg/dL High 0.55-1.02 [facility] [facility] Comment on above: Result Comment: The validity of the calculated GFR GFRAA in patients over 70 years has not been determined. Clinical correlation is essential. Performed By: #### L 100.0500, L501.5200, L500.2500 #### [facility] [address] [place] [place], [address] ECRCL 22.07 ml/min Normal [facility] Comment on above: Performed By: #### L 100.0500, L501.5200, L500.2500 #### [facility] [address] [place], [address] EST GFR - AA 43 mL/min Low >60 [facility] Comment on above: Result Comment: Afri can Burundian GFR Calc Performed By: #### L 100.0500, L501.5200, L500.2500 #### [facility] [address] [place], [address] GAP 11 Normal 5-15 [facility] Comment on above: Performed By: #### L 100.0500, L501.5200, L500.2500 #### [facility] [address] [place], [address] GFR/1.73 sq M.predicted among non-blacks MDRD (S/P/Bld) [Vol rate/Area] 36 mL/min/{1.73_m2} Low >60 [facility] Comment on above: Result Comment: Non- GFR Calc Performed By: #### L 100.0500, L501.5200, L500.2500 #### [facility] [address] [place], [address] Glucose [Mass/Vol] 111 mg/dL High 74-106 [facility] Comment on above: Result Comment: Fast ing Glucose result from 100 to 125 mg/dL suggests IMPAIRED HOMEOSTASIS per A.D.A. criteria. Performed By: #### L 100.0500, L501.5200, L500.2500 #### [facility] [address] [place], [address] Potassium [Moles/Vol] 3.3 mmol/L Low 3.5-5.1 [facility] Comment on above: Performed By: #### L 100.0500, L501.5200, L500.2500 #### [facility] [address] [place], [address] Sodium [Moles/Vol] 131 mmol/L Low 136-145 [facility] Comment on above: Performed By: #### L 100.0500, L501.5200, L500.2500 #### [facility] [address] [place], [address] Urea nitrogen [Mass/Vol] 50 mg/dL High 7-18 [facility] Comment on above: Performed By: #### L 100.0500, L501.5200, L500.2500 #### [facility] [address] [place], [address] Bilirubin Test strip Ql (U)O rdered By: Jaxson Scott on 01-09-2025 Bilirubin Ql (U) Negative Negative [facility] Brain/Head without Contrasto n 01-09-2025 Brain/Head without Contrast [facility] Imaging Services [address] [place] [address] Brain/Head without Contrast MR#: [id number] Acct: [id number] Name: FARZANA HERRON Rep #: [id number] : 1940 F 84 From: Gage Schmidt MD PCP: Dr. Wayne Conde, Status: DIS PETERSON Study: Brain/Head without Contrast Date of Exam: 12/25 05/18 Exam# [id number] Ordering Dr: Jaxson Scott DO EXAM: BRAIN/HEAD [...] Dr. Wayne Conde DO; Jaxson Scott DO Director Of Market Analysis: Signed Normal [facility] CBC W/Diff, Automatedon 12-25 Absolute Lymph 1.02 X10 3/uL Normal 0.83-4.51 [facility] Comment on above: Performed By: #### L 100.0100 ####[facility] [address] [place], [address] Absolute Neut 14.4 X10 3/uL High 2.0-7.7 [facility] Comment on above: Performed By: #### L 100.0100 ####[facility] [address] [place], [address] Basophils/100 WBC (Bld) 0.2 % Normal 0-1 [facility] Comment on above: Performed By: #### L 100.0100 ####[facility] [address] [place], [address] Eosinophils/100 WBC (Bld) 0.4 % Normal 0-5 [facility] Comment on above: Performed By: #### L 100.0100 ####[facility] [address] [place], [address] Erythrocyte distribution width (RBC) [Ratio] 15.9 % High 11.6-14.6 [facility] Comment on above: Performed By: #### L 100.0100 ####[facility] [address] [place], [address] Hematocrit (Bld) [Volume fraction] 26.5 % Low 37-47 [facility] Comment on above: Performed By: #### L 100.0100 ####[facility] [address] [place], [address] Hemoglobin (Bld) [Mass/Vol] 8.5 g/dL Low 12.0-15.0 [facility] Comment on above: Performed By: #### L 100.0100 ####[facility] [address] [place], [address] IG% 0.400 Normal 0.0-0.9 [facility] Comment on above: Result Comment: IG% - Immature Granulocytes (promyelocytes, myelocytes and metamyelocytes) > 1% indicates that a LEFT SHIFT is Present. Performed By: #### L 100.0100 ####[facility] [address] [place], [address] Lymphocytes/100 WBC (Bld) 6.0 % Low 19-41 [facility] Comment on above: Performed By: #### L 100.0100 ####[facility] [address] [place], [address] MCH (RBC) [Entitic mass] 27.7 pg Normal 27.0-32.0 [facility] Comment on above: Performed By: #### L 100.0100 ####[facility] [address] [place], [address] MCHC (RBC) [Mass/Vol] 32.1 g/dL Normal 32-36 [facility] Comment on above: Performed By: #### L 100.0100 ####[facility] [address] [place], [address] MCV (RBC) [Entitic vol] 86.3 fL Normal 81-99 [facility] Comment on above: Performed By: #### L 100.0100 ####[facility] [address] [place], [address] Monocytes/100 WBC (Bld) 8.7 % Normal 0-10 [facility] Comment on above: Performed By: #### L 100.0100 ####[facility] [address] [place], [address] Neutrophils/100 WBC (Bld) 84.3 % High 47-70 [facility] Comment on above: Performed By: #### L 100.0100 ####[facility] [address] [place], [address] Nucleated RBC (Bld) [#/Vol] 0 10*3/uL Normal 0-5 [facility] Comment on above: Performed By: #### L 100.0100 ####[facility] [address] [place], [address] Platelet mean volume (Bld) [Entitic vol] 11.2 fL Normal 6.2-12.0 [facility] Comment on above: Performed By: #### L 100.0100 ####[facility] [address] [place], [address] Platelets (Bld) [#/Vol] 279 10*3/uL Normal 150-450 [facility] Comment on above: Performed By: #### L 100.0100 ####[facility] [address] [place], [address] RBC (Bld) [#/Vol] 3.07 10*6/uL Low 4.2-5.4 [facility] Comment on above: Performed By: #### L 100.0100 ####[facility] [address] [place], [address] RDW SD 49.2 fl High 35.1-43.9 [facility] Comment on above: Performed By: #### L 100.0100 ####[facility] [address] [place], [address] WBC (Bld) [#/Vol] 17.1 10*3/uL High 4.4-11.0 [facility] Comment on above: Performed By: #### L 100.0100 ####[facility] [address] [place], [address] Chest 1 View (Portable)on Chest 1 View (Portable) [facility] Imaging Services [address] [place] [address] Chest 1 View (Portable) MR#: [id number] Acct: [id number] Name: FARZANA HERRON Rep #: [id number] : 1940 F 84 From: Gage Schmidt MD PCP: Dr. Wayne Conde DO Status: DIS PETERSON Study: Chest 1 View (Portable) Date of Exam: 01/09/25 Exam# [id number] Ordering Dr: Jaxson Scott DO PROCEDURE: CHEST [...] Dr. Wayne Conde DO; Jaxson Scott DO Director Of Market Analysis: Signed Normal [facility] Emergency Department Summary on 01-09-2025 Emergency Department Summary [facility] Medical Records Department [address] [place] [address] Emergency Department Summary 01/09/25 MR#: [id number] Acct: [id number] Name: FARZANA HERRON Rep #: [id number] : 1940 84 From: Jaxson Scott DO PCP: Dr. Wayne Conde DO Status:DIS PETERSON Location: ME3 [id number] HPI History of Present Illness Chief Complaint: Fall Informant: patient and EMS Narrative Narrative: Patient is an 84-year-old female with past medical history of hypothyroidism hypertension hyperlipidemia and dementia. She was recently seen in the hospital on January 02 secondary to mechanical fall where she was found to have an impacted left humeral fracture. There was concern that she may need placed in alf/rehab so she was kept overnight. However she [...] syncope she was brought in for evaluation [facility] Home Medications ???Medication ???Instructions ???Recorded ???Last Taken [...] PO QHS 01/02/25 Unknown His tory omega 7-hie-nfn-fish oil 300 3 cap PO DAILY 01/02/25 [...] icterus Nec (more content not included)... Normal [facility] Epithelial cells.squamous LM Ql (Urine sed)Ordered By: Jaxson Scott on 01-09-2025 Epithelial cells.squamous LM.HPF (Urine sed) [#/Area] 0 /[HPF] 5-10 [facility] Folates, (Folic Acid)on 12-25 FOLATES 5.70 ng/mL Normal 3.1-55.4 [facility] Comment on above: Order Comment: Has Josephine atient had X-rays with Contrast this admission? [place] Performed By: #### L 501.9520, L506.0250 ####[facility] [address] [place], [address] Folic acid measurementOrdere d By: Maynor Cox on 01-09-2025 Folate 5.70 ng/mL 3.1-55.4 [facility] Glucose Ql (U)Ordered By: Yoana Scott on 01-09-2025 Urine Glucose (UA) Normal mg/dl Normal [facility] H AND P Exam - Hospitaliston 01-09-2025 H&P Exam - Hospitalist [facility] Medical Records Department [address] [place] [address] H P Exam - Hospitalist 01/09/25 0507 MR#: [id number] Acct: [id number] Name: FARZANA HERRON Rep #: [id number] : 1940 84 From: Maynor Costa DO PCP: Dr. Wayne Conde, DO Status:DIS PETERSON [facility] - General General Date of Admission: [...] to subacute rehabilitation who now re-presents to [facility] ER complaining of another fall at home [...] so that she could be transition to alf facility. The patient denies fever, chills, visual [...] expected to be less than 2 midnights. [facility] Medical History (Updated 01/09/25 @ 06:52 by [...] PO QHS 01/02/25 Unknown His tory omega 5-jkb-bdf-fish oil 300 3 cap PO DAILY 01/02/25 [...] Time code (more content not included)... Normal [facility] Influenza virus A and B and SARS-CoV-2 (COVID-19) and Respiratory syncytial virus RNAOrdered By: Jaxson Scott on 01-09-2025 SARS-CoV-2 (COVID-19) RNA SARY+probe Ql (Unsp spec) [facility] Ketones Test strip Ql (U)Ord ered By: Jaxson Scott on 01-09-2025 Ketones Ql (U) Negative Negative [facility] M100.678on 01-09-2025 M100.678 SARS-CoV-2 (COVID 19 ) Negative INFLUENZA A Negative INFLUENZA B Negative RSV PCR Negative Normal [facility] Comment on above: Performed By: #### L 100.0500, L501.9520, L500.2500 #### [facility] [address] [facility] [place] [place], [address] Magnesiumon 01-09-2025 Magnesium [Mass/Vol] 1.7 mg/dL Normal 1.6-2.6 [facility] Comment on above: Performed By: #### L 100.0500, L501.5200, L500.2500 #### [facility] [address] [facility] [place], [address] Microscopic analysis of urin e for red blood cells (RBC)Ordered By: Jaxson Scott on 01-09-2025 Microscopic analysis of urine for red blood cells (RBC) 0 SEEN /hpf 0-5 [facility] Urine RBC 0 SEEN /hpf 0-5 [facility] Mucus LM Ql (Urine sed)Order ed By: Jaxson Scott on 01-09-2025 Mucus Ql (Urine sed) 0 SEEN /hpf [facility] Nitrite Test strip Ql (U)Ord ered By: Jaxson Scott on 01-09-2025 Nitrite Ql (U) Negative Negative [facility] Pelvis 1 or 2 Viewson 2024 Pelvis 1 or 2 Views [facility] Imaging Services [address], [place] [address] Pelvis 1 or 2 Views MR#: [id number] Acct: [id number] Name: FARZANA HERRON Rep #: [id number] : 1940 F 84 From: Gage Schmidt MD PCP: Dr. Wayne Conde, Status: DIS PETERSON Study: Pelvis 1 or 2 Views Date of Exam: 01/09/25 Exam# [id number] Ordering Dr: Jaxson Scott DO PROCEDURE: PELVIS [...] Dr. Wayne Conde DO; Jaxson Scott DO Director Of Market Analysis: Signed Normal [facility] Protein Test strip Ql (U)Ord ered By: Jaxson Scott on 01-09-2025 Protein Ql (U) 30 mg/dl High Negative [facility] Serum or plasma thyroid stim ulating hormone (TSH) measurement (units/volume)Ordered By: Maynor Cox on 01-09-2025 TSH Qn 1.590 uIU/mL 0.358-3.74 0 [facility] Spine Cervical without Contr ason 01-09-2025 Spine Cervical without Contras [facility] Imaging Services [address] [place] [id number] Spine Cervical without Contras MR#: [id number] Acct: [id number] Name: FARZANA HERRON Rep #: [id number] : 1940 F 84 From: Gage Schmidt MD PCP: Dr. Wayne Conde DO Status: DIS PETERSON Study: Spine Cervical without Contras Date of Exam: 0 01/09/25 Exam# [id number] Ordering Dr: Jaxson Scott DO PROCEDURE: SPINE [...] Dr. Wayne Conde DO; Jaxson Scott DO Director Of Market Analysis: Signed Normal [facility] Squamous epithelial cells de tection in urine sediment by light microscopyOrdered By: Jaxson Scott on 01-09-2025 Epithelial cells.squamous LM Ql (Urine sed) 0 SEEN /hpf 5-10 [facility] TSH QnOrdered By: Maynor bradford on 01-09-2025 Thyroid Stimulating Hormone (TSH) 1.590 uIU/mL 0.358-3.74 0 [facility] Thyroid Stim Hormone (TSH)on 01-09-2025 TSH 1.590 uIU/mL Normal 0.358-3.74 0 [facility] Comment on above: Order Comment: Has P atient had X-rays with Contrast this admission? N Performed By: #### L 501.9520, L506.0250 ####[facility] [address] [place], [address] Urinalysis, Completeon 01-09 RBC 0 SEEN Normal 0-5 [facility] Comment on above: Order Comment: FLORES CTOR TO SPECIFY Performed By: #### L 400.0001 ####[facility] [address] [place], [address] BACTERIA 0 SEEN Normal None Seen [facility] Comment on above: Order Comment: FLORES CTOR TO SPECIFY Performed By: #### L 400.0001 ####[facility] [address] [place], [address] EPI,SQUAMOUS 0 SEEN Normal -10 [facility] Comment on above: Order Comment: FLORES CTOR TO SPECIFY Performed By: #### L 400.0001 ####[facility] [address] [place], [address] Mucus Ql (Urine sed) 0 SEEN Normal [facility] Comment on above: Order Comment: FLORES CTOR TO SPECIFY Performed By: #### L 400.0001 ####[facility] [address] [place], [address] WBC 0 SEEN Normal 0-5 [facility] Comment on above: Order Comment: FLORES CTOR TO SPECIFY Performed By: #### L 400.0001 ####[facility] [address] [place], [address] Urine blood detectionOrdered By: Jaxson Scott on 01-09-2025 Urine Occult Blood 10 /ul High Negative [facility] Urine clarityOrdered By: Aleksey Scott on 01-09-2025 Clarity (U) Clear Clear [facility] Urine color determinationOrd ered By: Jaxson Scott on 01-09-2025 Color (U) Yellow Yellow [facility] Urine glucose detectionOrder ed By: Jaxson Scott on 01-09-2025 Glucose Ql (U) Normal mg/dl Normal [facility] Urine leukocyte esterase det ection by dipstickOrdered By: Jaxson Scott on 01-09-2025 Leukocyte esterase Test strip Ql (U) Negative Negative [facility] Urine pHOrdered By: Jaxson messina on 01-09-2025 pH (U) 5.0 [pH] 5.0 - 8.0 [facility] Urine sediment bacteria coun t by microscopy (number/high power field)Ordered By: Jaxson Scott on 01-09-2025 Bacteria LM.HPF (Urine sed) [#/Area] 0 /[HPF] None Seen [facility] Urine specific gravity measu rementOrdered By: Jaxson Scott on 01-09-2025 Specific gravity (U) [Rel density] 1.010 1.002-1.03 0 [facility] Urine urobilinogen measureme ntOrdered By: Jaxson Scott on 01-09-2025 Urobilinogen Ql (U) Normal mg/dl Normal [facility] Urobilinogen Ql (U)Ordered B y: Jaxson Scott on 01-09-2025 Urine Urobilinogen Normal mg/dl Normal [facility] Vitamin B12 measurementOrder ed By: Maynor Cox on 01-09-2025 Vitamin B12 Level > 2000 pg/mL High 211-911 [facility] White blood cell countOrdere d By: Jaxson Scott on 01-09-2025 Urine WBC 0 SEEN /hpf 0-5 [facility] White blood cell count 0 SEEN /hpf 0-5 [facility] 36on 01-05-2025 36 Faxed to given number Normal [facility] 36on 01-04-2025 36 Name of caller: Uzma weldon Contact phone number: [phone] Relationship to Patient: Directon Home Nurse Provider: Kelsey Conde Practice: [facility] Chief Complaint/Reason for Call: The caller is needing a written order for the patient for a lift chair. The patient had a fall on Friday. Please fax to : [phone] Best time of day caller can be reached: any Patient advised that office/PCP has 24-48 business hours to return their call: Yes Normal [facility] Discharge Instructionon 12-25 Discharge Instruction [facility] Medical Records Department [address] [place] [address] Instructions for Home/Discharge Instructions 01/04/25 1534 MR#: [id number] Acct: [id number] Name: FARZANA HERRON Rep #: [id number] : 1940 84 From: Priyank Bauer DO [...] unit) tablet 2 tab PO QHS omega 9-myu-bbs-fish oil [Fish Oil] 300-1,000 mg capsule 3 [...] can be placed): Home, Self Care 01/04/25 0710 Priyank Bauer DO CC: Dr. Wayne Conde DO; Dr. Aaliyah Lafleur MD Signed Normal [facility] 36on 01-03-2025 36 Rx loaded [facility] Absolute lymphocyte countOrd ered By: Aaliyah Lafleur on 01-03-2025 Lymphocytes Auto (Unsp spec) [#/Vol] 1.44 10*3/uL 0.83-4.51 [facility] Absolute neutrophil countOrd ered By: Aaliyah Lafleur on 01-03-2025 Neutrophils (Bld) [#/Vol] 3.5 10*3/uL 2.0-7.7 [facility] Automated lymphocyte count a s percentage of total leukocytesOrdered By: Aaliyah Lafleur on 01-03-2025 Lymphocytes/100 WBC Auto (Unsp spec) 24.1 % 19-41 [facility] Basic Metabolic Profile (BMP )on 01-03-2025 BUN/CRE 13.5 RATIO Normal 10- [facility] Comment on above: Performed By: #### L 100.0500, L501.5200, L500.2500 #### [facility] [address] [place], [address] CA,Total 8.6 mg/dL Normal 8.5-10.1 [facility] Comment on above: Performed By: #### L 100.0500, L501.5200, L500.2500 #### [facility] [address] [place], [address] Chloride [Moles/Vol] 111 mmol/L High 98-107 [facility] Comment on above: Performed By: #### L 100.0500, L501.5200, L500.2500 #### [facility] [address] [place], [address] CO2 [Moles/Vol] 22.0 mmol/L Normal 21.0-32.0 [facility] Comment on above: Performed By: #### L 100.0500, L501.5200, L500.2500 #### [facility] [address] [place], [address] Creatinine [Mass/Vol] 1.04 mg/dL High 0.55-1.02 [facility] Comment on above: Result Comment: The validity of the calculated GFR GFRAA in patients over 70 years has not been determined. Clinical correlation is essential. Performed By: #### L 100.0500, L501.5200, L500.2500 #### [facility] [address] [place], [address] ECRCL 28.41 ml/min Normal [facility] Comment on above: Performed By: #### L 100.0500, L501.5200, L500.2500 #### [facility] [address] [place], [address] EST GFR - AA 65 mL/min Normal >60 [facility] Comment on above: Result Comment: Afri can Bur[place] GFR Calc Performed By: #### L 100.0500, L501.5200, L500.2500 #### [facility] [address] [place], [address] GAP 7 Normal 5-15 [facility] Comment on above: Performed By: #### L 100.0500, L501.5200, L500.2500 #### [facility] [address] [place], [address] GFR/1.73 sq M.predicted among non-blacks MDRD (S/P/Bld) [Vol rate/Area] 54 mL/min/{1.73_m2} Low >60 [facility] Comment on above: Result Comment: Non- GFR Calc Performed By: #### L 100.0500, L501.5200, L500.2500 #### [facility] [address] [place], [address] Glucose [Mass/Vol] 100 mg/dL Normal 74-106 [facility] Comment on above: Result Comment: Fast ing Glucose result from 100 to 125 mg/dL suggests IMPAIRED HOMEOSTASIS per A.D.A. criteria. Performed By: #### L 100.0500, L501.5200, L500.2500 #### [facility] [address] [place], [address] Potassium [Moles/Vol] 3.7 mmol/L Normal 3.5-5.1 [facility] Comment on above: Performed By: #### L 100.0500, L501.5200, L500.2500 #### [facility] [address] [place], [address] Sodium [Moles/Vol] 140 mmol/L Normal 136-145 [facility] Comment on above: Performed By: #### L 100.0500, L501.5200, L500.2500 #### [facility] [address] [place], [address] Urea nitrogen [Mass/Vol] 14 mg/dL Normal 7-18 [facility] Comment on above: Performed By: #### L 100.0500, L501.5200, L500.2500 #### [facility] [address] [place], [address] Basophil percentageOrdered B y: Aaliyah Lafleur on 01-03-2025 Basophils/100 WBC (Bld) 0.7 % 0-1 [facility] Blood urea nitrogen (BUN)/cr eatinine ratioOrdered By: Aaliyah Lafleur on 01-03-2025 Urea nitrogen/Creatinine [Mass ratio] 13.5 mg/mg 10- [facility] CBC W/Diff, Automatedon 12-25 0-2024 Absolute Lymph 1.44 X10 3/uL Normal 0.83-4.51 [facility] Comment on above: Performed By: #### L 100.0500, L501.5200, L500.2500 #### [facility] [address] [place], [address] Absolute Neut 3.5 X10 3/uL Normal 2.0-7.7 [facility] Comment on above: Performed By: #### L 100.0500, L501.5200, L500.2500 #### [facility] [address] [place], [address] Basophils/100 WBC (Bld) 0.7 % Normal 0-1 [facility] Comment on above: Performed By: #### L 100.0500, L501.5200, L500.2500 #### [facility] [address] [place], [address] Eosinophils/100 WBC (Bld) 1.2 % Normal 0-5 [facility] Comment on above: Performed By: #### L 100.0500, L501.5200, L500.2500 #### [facility] [address] [place], [address] Erythrocyte distribution width (RBC) [Ratio] 15.7 % High 11.6-14.6 [facility] Comment on above: Performed By: #### L 100.0500, L501.5200, L500.2500 #### [facility] [address] [place], [address] Hematocrit (Bld) [Volume fraction] 29.2 % Low 37-47 [facility] Comment on above: Performed By: #### L 100.0500, L501.5200, L500.2500 #### [facility] [address] [place], [address] Hemoglobin (Bld) [Mass/Vol] 9.1 g/dL Low 12.0-15.0 [facility] Comment on above: Performed By: #### L 100.0500, L501.5200, L500.2500 #### [facility] [address] [place], [address] IG% 0.300 Normal 0.0-0.9 [facility] Comment on above: Result Comment: IG% - Immature Granulocytes (promyelocytes, myelocytes and metamyelocytes) > 1% indicates that a LEFT SHIFT is Present. Performed By: #### L 100.0500, L501.5200, L500.2500 #### [facility] [address] [place], [address] Lymphocytes/100 WBC (Bld) 24.1 % Normal 19-41 [facility] Comment on above: Performed By: #### L 100.0500, L501.5200, L500.2500 #### [facility] [address] [place], [address] MCH (RBC) [Entitic mass] 27.3 pg Normal 27.0-32.0 [facility] Comment on above: Performed By: #### L 100.0500, L501.5200, L500.2500 #### [facility] [address] [place], [address] MCHC (RBC) [Mass/Vol] 31.2 g/dL Low 32-36 [facility] Comment on above: Performed By: #### L 100.0500, L501.5200, L500.2500 #### [facility] [address] [place], [address] MCV (RBC) [Entitic vol] 87.7 fL Normal 81-99 [facility] Comment on above: Performed By: #### L 100.0500, L501.5200, L500.2500 #### [facility] [address] [place], [address] Monocytes/100 WBC (Bld) 14.6 % High 0-10 [facility] Comment on above: Performed By: #### L 100.0500, L501.5200, L500.2500 #### [facility] [address] [place], [address] Neutrophils/100 WBC (Bld) 59.1 % Normal 47-70 [facility] Comment on above: Performed By: #### L 100.0500, L501.5200, L500.2500 #### [facility] [address] [place], [address] Nucleated RBC (Bld) [#/Vol] 0 10*3/uL Normal 0-5 [facility] Comment on above: Performed By: #### L 100.0500, L501.5200, L500.2500 #### [facility] [address] [place], [address] Platelet mean volume (Bld) [Entitic vol] 11.1 fL Normal 6.2-12.0 [facility] Comment on above: Performed By: #### L 100.0500, L501.5200, L500.2500 #### [facility] [address] [place], [address] Platelets (Bld) [#/Vol] 298 10*3/uL Normal 150-450 [facility] Comment on above: Performed By: #### L 100.0500, L501.5200, L500.2500 #### [facility] [address] [place], [address] RBC (Bld) [#/Vol] 3.33 10*6/uL Low 4.2-5.4 [facility] Comment on above: Performed By: #### L 100.0500, L501.5200, L500.2500 #### [facility] [address] [place], [address] RDW SD 50.5 fl High 35.1-43.9 [facility] Comment on above: Performed By: #### L 100.0500, L501.5200, L500.2500 #### [facility] [address] [place], [address] WBC (Bld) [#/Vol] 6.0 10*3/uL Normal 4.4-11.0 [facility] Comment on above: Performed By: #### L 100.0500, L501.5200, L500.2500 #### [facility] [address] [place], [address] Carbon dioxide measurementOr dered By: Aaliyah Lafleur on 01-03-2025 CO2 [Moles/Vol] 22.0 mmol/L 21.0-32.0 [facility] Chloride measurementOrdered By: Aaliyah Lafleur on 01-03-2025 Chloride [Moles/Vol] 111 mmol/L High 98-107 [facility] Eosinophil percentageOrdered By: Aaliyah Lafleur on 01-03-2025 Eosinophils/100 WBC (Bld) 1.2 % 0-5 [facility] Erythrocyte distribution wid th ratioOrdered By: Aaliyah Lafleur on 01-03-2025 Erythrocyte distribution width (RBC) [Ratio] 15.7 % High 11.6-14.6 [facility] Erythrocyte distribution wid th standard deviationOrdered By: Aaliyah Lafleur on 01-03-2025 Erythrocyte distribution width (RBC) [Entitic vol] 50.5 fL High 35.1-43.9 [facility] Erythrocyte distribution width (RBC) [Ratio] 50.5 fl High 35.1-43.9 [facility] Estimated glomerular filtrat ion rate (GFR) AmericanOrdered By: Aaliyah Lafleur on 01-03-2025 Estimated GFR (MDRD) Amer 65 mL/min >60 [facility] Comment on above: GFR Calc Estimation of creatinine aneesh aranceOrdered By: Aaliyah Lafleur on 01-03-2025 Estimated Creatinine Clearance Calc 28.41 ml/min [facility] Glomerular filtration rate ( GFR) estimationOrdered By: Aaliyah Lafleur on 01-03-2025 Estimated GFR (MDRD) Non-Af Amer 54 mL/min Low >60 [facility] Comment on above: Non- GFR Calc GFR/1.73 sq M.predicted among non-blacks MDRD (S/P/Bld) [Vol rate/Area] 54 mL/min/{1.73_m2} Low >60 [facility] Comment on above: Non- GFR Calc Glucose measurementOrdered B y: Aaliyah Lafleur on 01-03-2025 Glucose [Mass/Vol] 100 mg/dL 74-106 [facility] Comment on above: Fasting Glucose resu lt from 100 to 125 mg/dL suggests IMPAIRED HOMEOSTASIS per A.D.A. criteria. Hematocrit Auto (Bld) [Volum e fraction]Ordered By: Aaliyah Lafleur on 01-03-2025 Hematocrit (Bld) [Volume fraction] 29.2 % Low 37-47 [facility] Hemoglobin measurementOrdere d By: Aaliyah Lafleur on 01-03-2025 Hemoglobin (Bld) [Mass/Vol] 9.1 g/dL Low 12.0-15.0 [facility] Immature granulocytes/100 WB C Auto (Bld)Ordered By: Aaliyah Lafleur on 01-03-2025 Immature granulocytes/100 WBC (Bld) 0.300 % 0.0-0.9 [facility] Comment on above: IG% - Immature Granu locytes (promyelocytes, myelocytes and metamyelocytes) > 1% indicates that a LEFT SHIFT is Present. Lymphocytes Auto (Unsp spec) [#/Vol]Ordered By: Aaliyah Lafleur on 01-03-2025 Lymphocytes (Bld) [#/Vol] 1.44 10*3/uL 0.83-4.51 [facility] Lymphocytes/100 WBC Auto (Un sp spec)Ordered By: Aaliyah Lafleur on 01-03-2025 Lymphocytes/100 WBC (Bld) 24.1 % 19-41 [facility] MCV (mean corpuscular volume ) determinationOrdered By: Aaliyah Lafleur on 01-03-2025 MCV (RBC) [Entitic vol] 87.7 fL 81-99 [facility] Mean corpuscular hemoglobin (MCH) determinationOrdered By: Aaliyah Lafleur on 01-03-2025 MCH (RBC) [Entitic mass] 27.3 pg 27.0-32.0 [facility] Mean corpuscular hemoglobin concentration (MCHC) determinationOrdered By: Aaliyah Lafleur on 01-03-2025 MCHC (RBC) [Mass/Vol] 31.2 g/dL Low 32-36 [facility] Mean platelet volume determi nationOrdered By: Aaliyah Lafleur on 01-03-2025 Platelet mean volume (Bld) [Entitic vol] 11.1 fL 6.2-12.0 [facility] Monocyte percentageOrdered B y: Aaliyah Lafleur on 01-03-2025 Monocytes/100 WBC (Bld) 14.6 % High 0-10 [facility] Neutrophil percentageOrdered By: Aaliyah Lafleur on 01-03-2025 Neutrophils/100 WBC (Bld) 59.1 % 47-70 [facility] Nucleated red blood cell per centageOrdered By: Aaliyah Lafleur on 01-03-2025 Nucleated RBC/100 WBC (Bld) [Ratio] 0 % 0-5 [facility] Platelet countOrdered By: Fabian Lafleur on 01-03-2025 Platelets (Bld) [#/Vol] 298 10*3/uL 150-450 [facility] Potassium measurementOrdered By: Aaliyah Lafleur on 01-03-2025 Potassium [Moles/Vol] 3.7 mmol/L 3.5-5.1 [facility] RBC Auto (Bld) [#/Vol]Ordere d By: Aaliyah Lafleur on 01-03-2025 RBC (Bld) [#/Vol] 3.33 10*6/uL Low 4.2-5.4 [facility] Serum anion gap measurementO rdered By: Aaliyah Lafleur on 01-03-2025 Anion gap [Moles/Vol] 7 mmol/L 5-15 [facility] Serum or plasma calcium harish urement (mass/volume)Ordered By: Aaliyah Lafleur on 01-03-2025 Calcium [Mass/Vol] 8.6 mg/dL 8.5-10.1 [facility] Serum or plasma creatinine m easurement (mass/volume)Ordered By: Aaliyah Lafleur on 01-03-2025 Creatinine [Mass/Vol] 1.04 mg/dL High 0.55-1.02 [facility] Comment on above: The validity of the calculated GFR & GFRAA in patients over 70 years has not been determined. Clinical correlation is essential. Serum or plasma urea nitroge n measurement (mass/volume)Ordered By: Aaliyah Lafleur on 01-03-2025 Urea nitrogen [Mass/Vol] 14 mg/dL 7-18 [facility] Shoulder min 2 Viewson 01-03 Shoulder min 2 Views [facility] Imaging Services [address] [place] [address] Shoulder min 2 Views MR#: [id number] Acct: [id number] Name: FARZANA HERRON Rep #: [id number] : 1940 F 84 From: Priyank Alas MD PCP: Dr. Wayne Conde DO Status: DIS PETERSON Study: Shoulder min 2 Views Date of Exam: 01/03/25 Exam# [id number] Ordering Dr: Aaliyah Lafleur MD EXAM: XR [...] humeral neck, likely impacted fracture. Reading [facility] CC: Dr. Wayne Conde DO; Dr. Aaliyah Lafleur MD Director Of Market Analysis: Signed Normal [facility] Sodium levelOrdered By: Tejas Lafleur on 01-03-2025 Sodium [Moles/Vol] 140 mmol/L 136-145 [facility] White blood cell (WBC) count Ordered By: Aaliyah Lafleur on 01-03-2025 WBC (Bld) [#/Vol] 6.0 10*3/uL 4.4-11.0 [facility] Basic Metabolic Profile (BMP )on 01-02-2025 BUN/CRE 7.9 RATIO Low 10-20 [facility] Comment on above: Performed By: #### L 100.0100, L500.2500 ####[facility] [address] [place], [address] CA,Total 9.3 mg/dL Normal 8.5-10.1 [facility] Comment on above: Performed By: #### L 100.0100, L500.2500 ####[facility] [address] [place], [address] Chloride [Moles/Vol] 109 mmol/L High 98-107 [facility] Comment on above: Performed By: #### L 100.0100, L500.2500 ####[facility] [address] [place], [address] CO2 [Moles/Vol] 21.0 mmol/L Normal 21.0-32.0 [facility] Comment on above: Performed By: #### L 100.0100, L500.2500 ####[facility] [address] [place], [address] Creatinine [Mass/Vol] 1.40 mg/dL High 0.55-1.02 [facility] Comment on above: Result Comment: The validity of the calculated GFR GFRAA in patients over 70 years has not been determined. Clinical correlation is essential. Performed By: #### L 100.0100, L500.2500 ####[facility] [address] [place], [address] ECRCL 24.67 ml/min Normal [facility] Comment on above: Performed By: #### L 100.0100, L500.2500 ####[facility] [address] [place], [address] EST GFR - AA 46 mL/min Low >60 [facility] Comment on above: Result Comment: Afri can [place] GFR Calc Performed By: #### L 100.0100, L500.2500 ####[facility] [address] [place], [address] GAP 10 Normal 5-15 [facility] Comment on above: Performed By: #### L 100.0100, L500.2500 ####[facility] [address] [place], [address] GFR/1.73 sq M.predicted among non-blacks MDRD (S/P/Bld) [Vol rate/Area] 38 mL/min/{1.73_m2} Low >60 [facility] Comment on above: Result Comment: Non- GFR Calc Performed By: #### L 100.0100, L500.2500 ####[facility] [address] [place], [address] Glucose [Mass/Vol] 116 mg/dL High 74-106 [facility] Comment on above: Result Comment: Fast ing Glucose result from 100 to 125 mg/dL suggests IMPAIRED HOMEOSTASIS per A.D.A. criteria. Performed By: #### L 100.0100, L500.2500 ####[facility] [address] [place], [address] Potassium [Moles/Vol] 3.8 mmol/L Normal 3.5-5.1 [facility] Comment on above: Performed By: #### L 100.0100, L500.2500 ####[facility] [address] [place], [address] Sodium [Moles/Vol] 140 mmol/L Normal 136-145 [facility] Comment on above: Performed By: #### L 100.0100, L500.2500 ####[facility] [address] [place], [address] Urea nitrogen [Mass/Vol] 11 mg/dL Normal 7-18 [facility] Comment on above: Performed By: #### L 100.0100, L500.2500 ####[facility] [address] [place], [address] CBC W/Diff, Automatedon 02-0 9-2024 Absolute Lymph 1.48 X10 3/uL Normal 0.83-4.51 [facility] Comment on above: Performed By: #### L 100.0100, L500.2500 ####[facility] [address] [place], [address] Absolute Neut 5.8 X10 3/uL Normal 2.0-7.7 [facility] Comment on above: Performed By: #### L 100.0100, L500.2500 ####[facility] [address] [place], [address] Basophils/100 WBC (Bld) 0.5 % Normal 0-1 [facility] Comment on above: Performed By: #### L 100.0100, L500.2500 ####[facility] [address] [place], [address] Eosinophils/100 WBC (Bld) 1.6 % Normal 0-5 [facility] Comment on above: Performed By: #### L 100.0100, L500.2500 ####[facility] [address] [place], [address] Erythrocyte distribution width (RBC) [Ratio] 15.9 % High 11.6-14.6 [facility] Comment on above: Performed By: #### L 100.0100, L500.2500 ####[facility] [address] [place], [address] Hematocrit (Bld) [Volume fraction] 33.6 % Low 37-47 [facility] Comment on above: Performed By: #### L 100.0100, L500.2500 ####[facility] [address] [place], [address] Hemoglobin (Bld) [Mass/Vol] 10.3 g/dL Low 12.0-15.0 [facility] Comment on above: Performed By: #### L 100.0100, L500.2500 ####[facility] [address] [place], [address] IG% 0.200 Normal 0.0-0.9 [facility] Comment on above: Result Comment: IG% - Immature Granulocytes (promyelocytes, myelocytes and metamyelocytes) > 1% indicates that a LEFT SHIFT is Present. Performed By: #### L 100.0100, L500.2500 ####[facility] [address] [place], [address] Lymphocytes/100 WBC (Bld) 17.7 % Low 19-41 [facility] Comment on above: Performed By: #### L 100.0100, L500.2500 ####[facility] [address] [place], [address] MCH (RBC) [Entitic mass] 27.1 pg Normal 27.0-32.0 [facility] Comment on above: Performed By: #### L 100.0100, L500.2500 ####[facility] [address] [place], [address] MCHC (RBC) [Mass/Vol] 30.7 g/dL Low 32-36 [facility] Comment on above: Performed By: #### L 100.0100, L500.2500 ####[facility] [address] [place], [address] MCV (RBC) [Entitic vol] 88.4 fL Normal 81-99 [facility] Comment on above: Performed By: #### L 100.0100, L500.2500 ####[facility] [address] [place], [address] Monocytes/100 WBC (Bld) 10.2 % High 0-10 [facility] Comment on above: Performed By: #### L 100.0100, L500.2500 ####[facility] [address] [place], [address] Neutrophils/100 WBC (Bld) 69.8 % Normal 47-70 [facility] Comment on above: Performed By: #### L 100.0100, L500.2500 ####[facility] [address] [place], [address] Nucleated RBC (Bld) [#/Vol] 0 10*3/uL Normal 0-5 [facility] Comment on above: Performed By: #### L 100.0100, L500.2500 ####[facility] [address] [place], [address] Platelet mean volume (Bld) [Entitic vol] 11.4 fL Normal 6.2-12.0 [facility] Comment on above: Performed By: #### L 100.0100, L500.2500 ####[facility] [address] [place], [address] Platelets (Bld) [#/Vol] 346 10*3/uL Normal 150-450 [facility] Comment on above: Performed By: #### L 100.0100, L500.2500 ####[facility] [address] [place], [address] RBC (Bld) [#/Vol] 3.80 10*6/uL Low 4.2-5.4 [facility] Comment on above: Performed By: #### L 100.0100, L500.2500 ####[facility] [address] [place], [address] RDW SD 51.1 fl High 35.1-43.9 [facility] Comment on above: Performed By: #### L 100.0100, L500.2500 ####[facility] [address] [place], [address] WBC (Bld) [#/Vol] 8.4 10*3/uL Normal 4.4-11.0 [facility] Comment on above: Performed By: #### L 100.0100, L500.2500 ####[facility] [address] [place], [address] Emergency Department Summary on 01-02-2025 Emergency Department Summary [facility] Medical Records Department [address] [place] [address] Emergency Department Summary 01/02/25 MR#: [id number] Acct: [id number] Name: FARZANA HERRON Rep #: [id number] : 1940 84 From: Frederic Garcia MD PCP: Dr. Wayne Conde, DO Status:DIS PETERSON [facility] H[facility] History of Present Illness Chief Complaint: [...] of left shoulder. She did take a [place] tablet prior to arrival. [facility] Home Medications ???Medication ???Instructions ???Recorded ???Last Taken [...] mg tablet mg 01/02/25 Unknown History omega 9-phs-mci-fish oil 300 1 cap PO DAILY 01/02/25 [...] she may require temporary placement in a alf facility versus home physical therapy/Occupational Therapy. Disposition [...] was admitte (more content not included)... Normal [facility] H AND P Exam - [facility] 01-02-2025 H&P Exam - Hospitalist [facility] Medical Records Department [address] [place] [address] H P Exam - Hospitalist 01/02/252047 MR#: [id number] Acct: [id number] Name: FARZANA HERRON Rep #: [id number] : 1940 84 From: Aaliyah Lafleur MD PCP: Dr. Wayne Conde, DO Status:DIS PETERSON Location: [facility] EE166-8 HPI - General General Date of Admission: 01/02/25 Date of Service: 01/02/25 Chief Complaint: left shoulder pain HPI Narrative FARZANA HERRON, is a 84-year-old female with history of hypothyroidism, coronary disease, dementia, hypertension, GERD presented [facility] ED 01/02/2025 after a fall. She is [...] mg tablet mg 01/02/25 Unknown History omega 2-ytg-zkw-fish oil 300 1 cap PO DAILY 01/02/25 [...] Skin: Some (more content not included)... Normal [facility] Knee 4 or More Viewson 01-02 Knee 4 or More Views [facility] Imaging Services [address] [place] [address] Knee 4 or More Views MR#: [id number] Acct: [id number] Name: FARZANA HERRON Rep #: [id number] : 1940 F 84 From: Zunilda Armijo MD PCP: Dr. Wayne Conde, DO Status: DIS PETERSON Study: Knee 4 or More Views Date of Exam: 01/02/25 Exam# [id number] Ordering Dr: Frederic Garcia MD PROCEDURE: KNEE 4 OR MORE VIEWS REASON FOR EXAM: Trauma TECHNIQUE: 4 views of the left knee COMPARISON: 01/02/2025 FINDINGS: No fracture. No suspicious bone lesion. Normal alignment. No effusion. Soft tissues are unremarkable. RAD/Knee 4 or More Views IMPRESSION: 1. No acute abnormality. Reading Location: [facility] CC: Dr. Frederic Garcia MD; Dr. Wayne Conde DO Director Of Market Analysis: Signed Normal [facility] Shoulder min 2 Viewson 01-02 Shoulder min 2 Views [facility] Imaging Services [address] [place] [id number] Shoulder min 2 Views MR#: [id number] Acct: [id number] Name: FARZANA HERRON Rep #: [id number] : 1940 F 84 From: Zunilda Armijo MD PCP: Dr. Wayne Conde DO Status: DIS PETERSON Study: Shoulder min 2 Views Date of Exam: 01/02/25 Exam# [id number] Ordering Dr: Frederic Garcia MD ADDENDUM by Dr. Zunilda Armijo MD on 01/02/25 at 1828 Based on additional clinical information, a nondisplaced impaction fracture along the lateral aspect of the humeral head is possible. Additional shoulder radiograph there is or and CT of the shoulder can be considered for further assessment. Reading Location: [facility] 01/02/25 1828 Date cc: Dr. Frederic Garcia [...] IMPRESSION: 1. No acute findings. Reading Location: [facility] CC: Dr. Frederic Garcia MD; Dr. Wayne Conde DO Director Of Market Analysis: Signed Normal [facility] Tibia Fibula 2 Viewson 01-02 Tibia Fibula 2 Views [facility] Imaging Services [address] [place], [place] [address] Tibia Fibula 2 Views MR#: [id number] Acct: [id number] Name: FARZANA HERRON Rep #: [id number] : 1940 F 84 From: Zunilda Armijo MD PCP: Dr. Wayne Conde DO Status: DIS PETERSON Study: Tibia Fibula 2 Views Date of Exam: 01/02/25 Exam# [id number] Ordering Dr: Frederic Garcia MD PROCEDURE: TIBIA FIBULA 2 VIEWS REASON FOR EXAM: Trauma, pain TECHNIQUE: 2 view(s) of the left tibia and fibula COMPARISON: None. FINDINGS: No fracture. No suspicious bone lesion. Normal alignment at the knee and ankle. Soft tissues are unremarkable. RAD/Tibia Fibula 2 Views IMPRESSION: 1. No acute abnormality. Reading Location: [facility] CC: Dr. Frederic Garcia MD; Dr. Wayne Conde DO Director Of Market Analysis: Signed Normal [facility] Urinalysis, Completeon 01-02 BACTERIA Normal None Seen [facility] Comment on above: Order Comment: 508.1 Result Comment: SUPRIYA ENT DISCHARGED-NO SPECIMEN REC'D Performed By: #### L 100.0500, L501.9520, L500.2500 #### [facility] [address] [facility] [place], [place], [id number] BILIRUBIN URINE Normal Negative [facility] Comment on above: Order Comment: 508.1 Result Comment: SUPRIYA ENT DISCHARGED-NO SPECIMEN REC'D Performed By: #### L 100.0500, L501.9520, L500.2500 #### [facility] [address] [place], [address] Clarity (U) Normal Clear [facility] Comment on above: Order Comment: 508.1 Result Comment: SUPRIYA ENT DISCHARGED-NO SPECIMEN REC'D Performed By: #### L 100.0500, L501.9520, L500.2500 #### [facility] [address] [place], [address] Color (U) Normal Yellow [facility] Comment on above: Order Comment: 508.1 Result Comment: SUPRIYA ENT DISCHARGED-NO SPECIMEN REC'D Performed By: #### L 100.0500, L501.9520, L500.2500 #### [facility] [address] [place], [address] EPI,SQUAMOUS Normal 5-10 [facility] Comment on above: Order Comment: 508.1 Result Comment: SUPRIYA ENT DISCHARGED-NO SPECIMEN REC'D Performed By: #### L 100.0500, L501.9520, L500.2500 #### [facility] [address] [place], [address] GLUCOSE, UR Normal Normal [facility] Comment on above: Order Comment: 508.1 Result Comment: SUPRIYA ENT DISCHARGED-NO SPECIMEN REC'D Performed By: #### L 100.0500, L501.9520, L500.2500 #### [facility] [address] [place], [address] KETONE UR Normal Negative [facility] Comment on above: Order Comment: 508.1 Result Comment: SUPRIYA ENT DISCHARGED-NO SPECIMEN REC'D Performed By: #### L 100.0500, L501.9520, L500.2500 #### [facility] [address] [place], [address] LEUK ESTERASE Normal Negative [facility] Comment on above: Order Comment: 508.1 Result Comment: SUPRIYA ENT DISCHARGED-NO SPECIMEN REC'D Performed By: #### L 100.0500, L501.9520, L500.2500 #### [facility] [address] [place], [address] Mucus Ql (Urine sed) Normal [facility] Comment on above: Order Comment: 508.1 Result Comment: SUPRIYA ENT DISCHARGED-NO SPECIMEN REC'D Performed By: #### L 100.0500, L501.9520, L500.2500 #### [facility] [address] [place], [address] Nitrite Ql (U) Normal Negative [facility] Comment on above: Order Comment: 508.1 Result Comment: SUPRIYA ENT DISCHARGED-NO SPECIMEN REC'D Performed By: #### L 100.0500, L501.9520, L500.2500 #### [facility] [address] [place], [address] OCCULT BLOOD-UR Normal Negative [facility] Comment on above: Order Comment: 508.1 Result Comment: SUPRIYA ENT DISCHARGED-NO SPECIMEN REC'D Performed By: #### L 100.0500, L501.9520, L500.2500 #### [facility] [address] [place], [address] pH UR Normal 5.0 - 8.0 [facility] Comment on above: Order Comment: 508.1 Result Comment: SUPRIYA ENT DISCHARGED-NO SPECIMEN REC'D Performed By: #### L 100.0500, L501.9520, L500.2500 #### [facility] [address] [place], [address] PROT DIPSTX Normal Negative [facility] Comment on above: Order Comment: 508.1 Result Comment: SUPRIYA ENT DISCHARGED-NO SPECIMEN REC'D Performed By: #### L 100.0500, L501.9520, L500.2500 #### [facility] [address] [place], [address] RBC Normal 0-5 [facility] Comment on above: Order Comment: 508.1 Result Comment: SUPRIYA ENT DISCHARGED-NO SPECIMEN REC'D Performed By: #### L 100.0500, L501.9520, L500.2500 #### [facility] [address] [place], [address] SP.GR. DIPSTX Normal 1.002-1.03 0 [facility] Comment on above: Order Comment: 508.1 Result Comment: SUPRIYA ENT DISCHARGED-NO SPECIMEN REC'D Performed By: #### L 100.0500, L501.9520, L500.2500 #### [facility] [address] [place], [address] UR Preservative Normal [facility] Comment on above: Order Comment: 508.1 Result Comment: SUPRIYA ENT DISCHARGED-NO SPECIMEN REC'D Performed By: #### L 100.0500, L501.9520, L500.2500 #### [facility] [address] [place], [address] UROBILI Normal Normal [facility] Comment on above: Order Comment: 508.1 Result Comment: SUPRIYA ENT DISCHARGED-NO SPECIMEN REC'D Performed By: #### L 100.0500, L501.9520, L500.2500 #### [facility] [address] [place], [address] WBC Normal 0-5 [facility] Comment on above: Order Comment: 508.1 Result Comment: SUPRIYA ENT DISCHARGED-NO SPECIMEN REC'D Performed By: #### L 100.0500, L501.9520, L500.2500 #### [facility] [address] [place], [address] 36on 12-31-2024 36 Medication name: gua iFENesin [...] to picking up the medication: Yes Normal [facility] CBC W Auto Differential pane l (Bld)on 12-23-2024 Basophils (Bld) [#/Vol] 31 10*3/uL [facility] [employer] Basophils/100 WBC (Bld) 0.4 % [facility] [employer] Eosinophils (Bld) [#/Vol] 148 10*3/uL [facility] Eosinophils/100 WBC (Bld) 1.9 % [facility] [employer] Erythrocyte distribution width (RBC) [Ratio] 13.6 % 11.0 - 15.0 % [facility] [employer] Hematocrit (Bld) [Volume fraction] 31.2 % Low 35.0 - 45.0 % [facility] [employer] Hemoglobin (Bld) [Mass/Vol] 9.9 g/dL Low 11.7 - 15.5 g/dL [facility] [employer] Lymphocytes (Bld) [#/Vol] 1927 10*3/uL [facility] [employer] Lymphocytes/100 WBC (Bld) 24.7 % [facility] MCH (RBC) [Entitic mass] 28.2 pg 27.0 - 33.0 pg [facility] MCHC (RBC) [Mass/Vol] 31.7 g/dL Low 32.0 - 36.0 g/dL [facility] [employer] Comment on above: For adults, a slight decrease in the calculated MCHC value (in the range of 30 to 32 g/dL) is most likely not clinically significant; however, it should be interpreted with caution in correlation with other red cell parameters and the patient's clinical condition. MCV (RBC) [Entitic vol] 88.9 fL 80.0 - 100.0 fL [facility] [employer] Monocytes (Bld) [#/Vol] 1022 10*3/uL High [facility] [employer] Monocytes/100 WBC (Bld) 13.1 % [facility] Neutrophils (Bld) [#/Vol] 4672 10*3/uL [facility] Neutrophils/100 WBC (Bld) 59.9 % [facility] Platelet mean volume (Bld) [Entitic vol] 12.3 fL 7.5 - 12.5 fL [facility] Platelets (Bld) [#/Vol] 294 10*3/uL [facility] RBC (Bld) [#/Vol] 3.51 10*6/uL Low [facility] WBC (Bld) [#/Vol] 7.8 10*3/uL [facility] Comprehensive metabolic 1998 panelon 12-23-2024 Albumin [Mass/Vol] 3.9 g/dL 3.6 - 5.1 g/dL [facility] Albumin/Globulin [Mass ratio] 1.6 {ratio} [facility] ALP [Catalytic activity/Vol] 94 U/L 37 - 153 U/L [facility] ALT [Catalytic activity/Vol] 27 U/L 6 - 29 U/L [facility] AST [Catalytic activity/Vol] 35 U/L 10 - 35 U/L [facility] Bilirubin [Mass/Vol] 0.5 mg/dL 0.2 - 1 .2 mg/dL [facility] Calcium [Mass/Vol] 8.8 mg/dL 8.6 - 10. 4 mg/dL [facility] Chloride [Moles/Vol] 105 mmol/L 98 - 11 0 mmol/L [facility] CO2 [Moles/Vol] 21 mmol/L 20 - 32 mmol/L [facility] Creatinine [Mass/Vol] 1.23 mg/dL High 0.60 - 0.95 mg/dL [facility] GFR/1.73 sq M.predicted among non-blacks MDRD (S/P/Bld) [Vol rate/Area] 43 mL/min/{1.73_m2} Low > OR = 60 mL/min/1.7 3m2 [facility] Globulin (S) [Mass/Vol] 2.5 g/dL [facility] Glucose [Mass/Vol] 91 mg/dL 65 - 99 mg/dL [facility] Comment on above: Fasting reference interval Potassium [Moles/Vol] 3.9 mmol/L 3.5 - 5.3 mmol/L [facility] Protein [Mass/Vol] 6.4 g/dL 6.1 - 8.1 g/dL [facility] Sodium [Moles/Vol] 138 mmol/L 135 - 146 mmol/L [facility] Urea nitrogen [Mass/Vol] 25 mg/dL 7 - 25 mg/dL [facility] Urea nitrogen/Creatinine [Mass ratio] 20 mg/mg [facility] Magnesiumon 12-23-2024 Magnesium [Mass/Vol] 1.2 mg/dL Low 1.5 - 2 .5 mg/dL [facility] No Panel Informationon 12-23 Interpretation and review of laboratory results Abnormal [facility] 29on 12-22-2024 29 Addended by: WAYNE CORBETT on: 12/26/2024 05:51 PM Modules accepted: Orders Normal [facility] No Panel InformationOrdered By: Amalia Fajardo on 12-22-2024 [facility] Office Visiton 12-22-2024 Follow-up visit [id number] Toma Herron 1940 F [facility] Provider Department Center 12/22/2024 [id number] CONDE F [facility] Family History Problem Relation Age of Onset [...] Sister Brother 50 Brother Alive Level of Service:47261 UT OFFICE/OUTPATIENT ESTABLISHED MOD MDM 30 MIN Reason for Visit and Comments: Follow-up [496436] - Med Check Fall [522278] - Patient has recent falls Normal [facility] Progress Noteon 12-22-2024 Progress Note [facility] [place] [address] [facility] [address] [facility] [id number] Visit type: Established Patient Reason for [...] Stable on Spiriva Coronary artery disease involving [place] heart without angina pectoris, unspecified vessel or [...] tablet 1 ergocalciferol (Vitamin D2) 1.25 MG (83529 UT) capsule TAKE 1 CAPSULE BY MOUTH [...] of myocardial infarction Coronary artery disease involving [place] heart without angina pectoris COPD (chronic obstructive pulmonary disease) ([facility]) Lumbar degenerative disc disease Alzheimer's disease, unspecified (CODE) ([facility]) Chronic systolic (congestive) heart failure ([facility]) Irritable bowel syndrome Psoriasis Osteoporosis with pathological fracture Thoracic compression fracture (HC (more content not included)... [facility] 36on 11-30-2024 36 Recent Visits Date Type [...] Most recent labs completed in chart? N/A [facility] 36on 09-23-2024 36 Recent Visits Date Type [...] Disp Refills ergocalciferol (Vitamin D2) 1.25 MG (33720 UT) capsule [Pharmacy Med Name: Vitamin D (Ergocalciferol) 1.25 MG (56060 UT) Capsule] 5 capsule 11 Sig: TAKE [...] recent labs completed in chart? No None [facility] 37on 09-22-2024 37 Obtain RSV and COVID vaccines at your pharmacy [facility] Office Visiton 09-22-2024 Follow-up visit [id number] PamellaToma rodgers naecamilo 1940 F Date Provider Department Center 09/22/2024 [id number] CONDE [facility] Family History Problem Relation Age of Onset [...] Sister Brother 50 Brother Alive Level of Service:60689 UT OFFICE/OUTPATIENT ESTABLISHED MOD MDM 30 MIN Reason for Visit and Comments: Follow-up [308912] - Med check Flu Vaccine [189] - Patient is agreeable to have flu vaccine in the office [facility] Progress Noteon 09-22-2024 Progress Note [facility] - [address] [facility] [phone] Visit type: Established Patient Reason for [...] Comprehensive metabolic panel Alzheimer's disease, unspecified (CODE) ([facility]) Comments: Stable, continue Aricept Coronary artery disease involving [place] heart without angina pectoris, unspecified vessel or [...] BREAKFAST) ? ergocalciferol (Vitamin D2) 1.25 MG (87865 UT) capsule TAKE 1 CAPSULE BY MOUTH [...] cyanocobalamin (Vitamin B-12) (more content not included)... [facility] 36on 08-26-2024 36 RX loaded Next ov 09/22/24 [facility] 36 Medication name: Spiriva HandiHaler 18 MCG [...] prior to picking up the medication: Yes [place] [address]on 07-28-2024 36 Recent Visits Date Type Provider Dept 05/26/24 Office Visit Wayne Conde DO [facility] 02/04/24 [facility] Visit Wayne Conde DO [facility] Showing recent visits within past 365 days and meeting all other requirements Future Appointments Date Type Provider Dept 09/22/24 Appointment Wayne Conde DO [facility] Showing future appointments within next 90 [...] CHOLESTEROLT, HDLCHOLESTER, TRIGLYCERIDE, LDLCHOLESTER, CHOLHDLCRATI, NONHDLCHOLES Normal [facility] 36on 07-12-2024 36 RX loaded Next ov 09/22/24 [facility] 36 Medication name: jackie iFENesin (Mucinex) 600 [...] to picking up the medication: Yes Normal [facility] Basic metabolic 1998 panelon 01-21-2024 Anion gap [Moles/Vol] 3 mmol/L 3 - 13 mmol/L [facility] Calcium [Mass/Vol] 8.1 mg/dL Low 8.4 - 10. 4 mg/dL [facility] Chloride [Moles/Vol] 105 mmol/L 98 - 10 7 mmol/L [facility] CO2 [Moles/Vol] 27 mmol/L 22 - 30 mmol/L [facility] Creatinine [Mass/Vol] 0.96 mg/dL 0.52 - 1.04 mg/dL [facility] GFR/1.73 sq M.predicted MDRD (S/P/Bld) [Vol rate/Area] 58.5 mL/min/{1.73_m2} Low - PINF [facility] Comment on above: Calculation based on the Chronic Kidney Disease Epidemiology Collaboration (CKD-EPI) equation refit without adjustment for race Glucose [Mass/Vol] 85 mg/dL 70 - 100 mg/dL [facility] Interpretation and review of laboratory results Abnormal [facility] Potassium [Moles/Vol] 4.1 mmol/L 3.5 - 5.1 mmol/L [facility] Sodium [Moles/Vol] 135 mmol/L 135 - 145 mmol/L [facility] Urea nitrogen [Mass/Vol] 25 mg/dL High 7 - 17 mg/dL [facility] CBC panel Auto (Bld)on 01-21 Erythrocyte distribution width (RBC) [Ratio] 14.9 % 11.5 - 15.0 % [facility] Hematocrit (Bld) [Volume fraction] 32.4 % Low 35.0 - 47.0 % [facility] Hemoglobin (Bld) [Mass/Vol] 10.3 g/dL Low 11.7 - 16.0 g/dL [facility] Interpretation and review of laboratory results Abnormal [facility] MCH (RBC) [Entitic mass] 27.2 pg 26.0 - 34.0 pg [facility] MCHC (RBC) [Mass/Vol] 31.8 % 30.5 - 36.0 % [facility] MCV (RBC) [Entitic vol] 85.5 fL 77.0 - 99.0 fL [facility] Platelet mean volume (Bld) [Entitic vol] 11.6 fL 9.0 - 12.7 fL [facility] Platelets (Bld) [#/Vol] 233 10*3/uL 140 - 440 10*3/uL [facility] RBC (Bld) [#/Vol] 3.79 10*6/uL Low 3.80 - 5.20 10*6/uL [facility] WBC (Bld) [#/Vol] 4.5 10*3/uL 3.6 - 10.7 10*3/uL [facility] XR Abdomen Single viewon Nonspecific bowel gas pattern, consider constipation. Report Dictated on Electronically Signed By: Annette Walsh MD Electronically Signed Date/Time: 01/21/2024 12:21 PM [facility] [employer] Patient Name: FARZANA KELLEY : 1940 [...] osteophytes are present along the thoracolumbar spine. [facility] Annette Walsh MD - 01/21/2024 Patient [...] Electronically Signed Date/Time: 01/21/2024 12:21 PM EST [facility] Radiology Study observation (narrative) [employer] XR Abdomen Single viewOrdere d By: Annette Walsh on 01-21-2024 [facility] Work Phone: 25-hydroxyvitamin D3 [Mass/V ol]on 01-20-2024 Interpretation and review of laboratory results Normal [facility] Therapy is based on measurement of Total 25-OHD with the following classification levels: Less than 20 ng/mL: Indicative of Vit D deficiency 20-30 ng/mL: Suggests Vit D insufficiency Optimal: Greater than or equal to 30 ng/mL Test performed by [employer] Immunoassay, measuring Total Vitamin D, not individual fractions. [facility] Laboratory - Chemistry and C hemistry - challengeon 01-20-2024 25-hydroxyvitamin D3 [Mass/Vol] 37 ng/mL 30 - 100 ng/mL [facility] Basic metabolic 1998 panelon 01-19-2024 Anion gap [Moles/Vol] 7 mmol/L 3 - 13 mmol/L [facility] Calcium [Mass/Vol] 8.6 mg/dL 8.4 - 10. 4 mg/dL [facility] Chloride [Moles/Vol] 102 mmol/L 98 - 10 7 mmol/L [facility] CO2 [Moles/Vol] 27 mmol/L 22 - 30 mmol/L [facility] Creatinine [Mass/Vol] 0.79 mg/dL 0.52 - 1.04 mg/dL [facility] GFR/1.73 sq M.predicted MDRD (S/P/Bld) [Vol rate/Area] 73.9 mL/min/{1.73_m2} - PINF [facility] Comment on above: Calculation based on the Chronic Kidney Disease Epidemiology Collaboration (CKD-EPI) equation refit without adjustment for race Glucose [Mass/Vol] 109 mg/dL High 70 - 100 mg/dL [facility] Interpretation and review of laboratory results Abnormal [facility] Potassium [Moles/Vol] 3.6 mmol/L 3.5 - 5.1 mmol/L [facility] Sodium [Moles/Vol] 136 mmol/L 135 - 145 mmol/L [facility] Urea nitrogen [Mass/Vol] 9 mg/dL 7 - 17 mg/dL [facility] CBC W Auto Differential pane l (Bld)Ordered By: Mikel Corcoran on 01-19-2024 Basophils (Bld) [#/Vol] 0.0 10*3/uL 0.0 - 0.2 10*3/uL [facility] Basophils/100 WBC (Bld) 0.5 % 0.0 - 2.0 % [facility] Eosinophils (Bld) [#/Vol] 0.1 10*3/uL 0.0 - 0.5 10*3/uL [facility] Eosinophils/100 WBC (Bld) 2.2 % 1.0 - 6.0 % [facility] Erythrocyte distribution width (RBC) [Ratio] 14.4 % 11.5 - 14.5 % [facility] Hematocrit (Bld) [Volume fraction] 34.9 % Low 35.0 - 47.0 % [facility] Hemoglobin (Bld) [Mass/Vol] 11.3 g/dL Low 11.7 - 16.0 g/dL [facility] Interpretation and review of laboratory results Abnormal [facility] Lymphocytes (Bld) [#/Vol] 1.2 10*3/uL 1.0 - 4.3 10*3/uL [facility] Lymphocytes/100 WBC (Bld) 19.5 % Low 20.0 - 40.0 % [facility] MCH (RBC) [Entitic mass] 27.5 pg 26.0 - 34.0 pg [facility] MCHC (RBC) [Mass/Vol] 32.4 % 32.0 - 36.0 % [facility] MCV (RBC) [Entitic vol] 85.1 fL 80.0 - 98.0 fL [facility] Monocytes (Bld) [#/Vol] 0.7 10*3/uL 0.0 - 0.8 10*3/uL [facility] Monocytes/100 WBC (Bld) 12.6 % High 2.0 - 10.0 % [facility] Neutrophils (Bld) [#/Vol] 3.9 10*3/uL 1.8 - 7.0 10*3/uL [facility] Neutrophils/100 WBC (Bld) 65.2 % 40.0 - 80.0 % [facility] Nucleated RBC/100 WBC (Bld) [Ratio] 0.0 % [facility] Platelet mean volume (Bld) [Entitic vol] 9.4 fL 7.4 - 12.4 fL [facility] Platelets (Bld) [#/Vol] 278 10*3/uL 140 - 440 10*3/uL [facility] RBC (Bld) [#/Vol] 4.10 10*6/uL 3.8 - 5.20 10*6/uL [facility] WBC (Bld) [#/Vol] 5.9 10*3/uL 3.6 - 10.7 10*3/uL [facility] Cobalamin (Vitamin B12) [Mas s/Vol]on 01-19-2024 Interpretation and review of laboratory results Normal [facility] Laboratory - Chemistry and C hemistry - challengeon 01-19-2024 Cobalamin (Vitamin B12) [Mass/Vol] 278 pg/mL 239 - 931 pg/mL [facility] No Panel InformationOrdered By: Kannan Barry on 01-19-2024 P Minier 18 degrees [facility] Work Phone: UT Interval 176 ms [facility] Work Phone: QRS [place] -24 degrees [facility] Work Phone: QRSD Interval 80 ms [employer] Phone: QT Interval 366 ms [facility] Work Phone: QTC Interval 433 ms [facility] Work Phone: T Wave [place] 37 degrees [facility] Work Phone: [facility] Work Phone: No Panel Informationon 01-19 Sinus rhythm Inferior infarct, old Compared to ECG 01/16/2024 08:41:36 No significant changes Electronically Signed On 01-19-2024 10:00:01 EST by Kannan Andino M D - 01/19/2024 IMPRESSION: Sinus rhythm Inferior infarct, old Compared to ECG 01/16/2024 08:41:36 No significant changes Electronically Signed On 01-19-2024 10:00:01 EST by Kannan Barry [facility] Vital signsOrdered By: Arcadio Barry on 01-19-2024 Heart rate 84 /min bpm [facility] Work Phone: Laboratory - Chemistry and C hemistry - challengeon 01-18-2024 Glucose [Mass/Vol] 88 mg/dL 70 - 100 mg/dL [facility] TSH Qn 1.283 m[IU]/L [facility] No Panel Informationon 01-18 Interpretation and review of laboratory results Normal [facility] [employer] Performed by: [facility] [address] [place] [id number] CLIA ID: [id number] [facility] [employer] Radiology Study observation (narrative) [employer] TSH Qnon 01-18-2024 Interpretation and review of laboratory results Normal [facility] [employer] XR Abdomen Single viewon Impression: Suspect mild ileus. Report Dictated on Electronically Signed By: Taylor Reed MD Electronically Signed Date/Time: 01/18/2024 10:39 AM [facility] Patient Name: FARZANA KELLEY : [...] present at multiple levels with mild scoliosis. [facility] Taylor Reed MD - 01/18/2024 Patient [...] Electronically Signed Date/Time: 01/18/2024 10:39 AM EST [employer] Radiology Study observation (narrative) [facility] XR Abdomen Single viewOrdere d By: Taylor Reed on 01-18-2024 [facility] Work Phone: Basic metabolic 1998 panelon 01-17-2024 Anion gap [Moles/Vol] 6 mmol/L 3 - 13 mmol/L [facility] Calcium [Mass/Vol] 8.7 mg/dL 8.4 - 10. 4 mg/dL [facility] Chloride [Moles/Vol] 106 mmol/L 98 - 10 7 mmol/L [facility] CO2 [Moles/Vol] 28 mmol/L 22 - 30 mmol/L [facility] Creatinine [Mass/Vol] 0.90 mg/dL 0.52 - 1.04 mg/dL [facility] GFR/1.73 sq M.predicted MDRD (S/P/Bld) [Vol rate/Area] 63.2 mL/min/{1.73_m2} - PINF [facility] Comment on above: Calculation based on the Chronic Kidney Disease Epidemiology Collaboration (CKD-EPI) equation refit without adjustment for race Glucose [Mass/Vol] 88 mg/dL 70 - 100 mg/dL [facility] Interpretation and review of laboratory results Normal [facility] Potassium [Moles/Vol] 3.8 mmol/L 3.5 - 5.1 mmol/L [facility] Sodium [Moles/Vol] 139 mmol/L 135 - 145 mmol/L [facility] Urea nitrogen [Mass/Vol] 14 mg/dL 7 - 17 mg/dL [facility] CBC W Auto Differential pane l (Bld)Ordered By: Kurtis Anderson on 01-17-2024 Basophils (Bld) [#/Vol] 0.1 10*3/uL 0.0 - 0.2 10*3/uL [facility] Basophils/100 WBC (Bld) 1.0 % 0.0 - 2.0 % [facility] Eosinophils (Bld) [#/Vol] 0.1 10*3/uL 0.0 - 0.5 10*3/uL [facility] Eosinophils/100 WBC (Bld) 1.7 % 1.0 - 6.0 % [facility] Erythrocyte distribution width (RBC) [Ratio] 14.7 % High 11.5 - 14.5 % [facility] Hematocrit (Bld) [Volume fraction] 32.5 % Low 35.0 - 47.0 % [facility] Hemoglobin (Bld) [Mass/Vol] 10.8 g/dL Low 11.7 - 16.0 g/dL [facility] Interpretation and review of laboratory results Abnormal [facility] Lymphocytes (Bld) [#/Vol] 1.4 10*3/uL 1.0 - 4.3 10*3/uL [facility] [employer] Lymphocytes/100 WBC (Bld) 26.2 % 20.0 - 40.0 % [facility] [employer] MCH (RBC) [Entitic mass] 28.0 pg 26.0 - 34.0 pg [facility] MCHC (RBC) [Mass/Vol] 33.4 % 32.0 - 36.0 % [facility] [employer] MCV (RBC) [Entitic vol] 84.0 fL 80.0 - 98.0 fL [facility] Monocytes (Bld) [#/Vol] 0.5 10*3/uL 0.0 - 0.8 10*3/uL [facility] [employer] Monocytes/100 WBC (Bld) 10.6 % High 2.0 - 10.0 % [facility] Neutrophils (Bld) [#/Vol] 3.1 10*3/uL 1.8 - 7.0 10*3/uL [facility] Neutrophils/100 WBC (Bld) 60.5 % 40.0 - 80.0 % [facility] Nucleated RBC/100 WBC (Bld) [Ratio] 0.0 % [facility] [employer] Platelet mean volume (Bld) [Entitic vol] 9.4 fL 7.4 - 12.4 fL [facility] [employer] Platelets (Bld) [#/Vol] 231 10*3/uL 140 - 440 10*3/uL [facility] RBC (Bld) [#/Vol] 3.86 10*6/uL 3.8 - 5.20 10*6/uL [facility] [employer] WBC (Bld) [#/Vol] 5.2 10*3/uL 3.6 - 10.7 10*3/uL [facility] Heart TransthoracicOrdere d By: Miguel A Meza on 01-17-2024 Ao Root Index 1.86 cm/m2 [facility] [employer] Work Phone: Aortic Root 2.9 cm [facility] [employer] Work Phone: Aortic Sinus Valsalva 2.9 cm [facility] Work Phone: Aortic Sinus Valsalva Index 1.86 cm/m2 [facility] [employer] Work Phone: Ascending Aorta 3.1 cm [facility] [employer] Work Phone: [phone] Ascending Aorta Index 1.99 cm/m2 [facility] [employer] Work Phone: E/E' Lateral 10.67 [facility] [employer] Work Phone: [phone] E/E' Ratio (Averaged) 13.33 Sum tx [employer] Work Phone: E/E' Septal 16.00 [facility] [employer] Work Phone: EF BP 66 % 55 - 100 % [facility] [employer] Work Phone: Est. RA Pressure 3 mmHg [facility] [employer] Work Phone: Global Longitudinal Strain -17.4 % [facility] Work Phone: Global Longitudinal Strain -18.1 % [facility] Work Phone: Global Longitudinal Strain -17.7 % [facility] [employer] Work Phone: Interpretation and review of laboratory results Abnormal [facility] Work Phone: IVC Diameter 1.6 cm [facility] [employer] Work Phone: LA Diameter 3.0 cm [facility] Work Phone: LA Size Index 1.92 cm/m2 [facility] Phone: LA Volume 2C 32 mL 22 - 52 mL [facility] Phone: LA Volume 4C 29 mL 22 - 52 mL [facility] Work Phone: LA Volume A/L 33 mL [facility] [employer] Work Phone: LA Volume BP 31 mL 22 - 52 mL [facility] Work Phone: LA Volume Index 2C 21 mL/m2 16 - 34 mL/m2 [facility] Work Phone: LA Volume Index 4C 19 mL/m2 16 - 34 mL/m2 [facility] Work Phone: LA Volume Index A/L 21 mL/m2 16 - 34 mL/m2 [facility] Phone: LA Volume Index BP 20 ml/m2 16 - 34 ml/m2 [facility] Work Phone: LA/AO Root Ratio 1.03 [facility] [employer] Work Phone: LV E' Lateral Velocity 6 cm/s [facility] [employer] Work Phone: LV E' Septal Velocity 4 cm/s [facility] [employer] Work Phone: LV EDV A2C 28 mL [facility] [employer] Work Phone: LV EDV A4C 32 mL [facility] [employer] Work Phone: LV EDV BP 31 mL Abnormal 56 - 104 mL [facility] [employer] Work Phone: LV EDV Index A2C 18 mL/m2 [facility] [employer] Work Phone: LV EDV Index A4C 21 mL/m2 [facility] [employer] Work Phone: LV EDV Index BP 20 mL/m2 [facility] [employer] Work Phone: LV Ejection Fraction A2C 68 % [facility] [employer] Work Phone: LV Ejection Fraction A4C 66 % [facility] [employer] Work Phone: LV ESV A2C 9 mL [facility] [employer] Work Phone: LV ESV A4C 11 mL [facility] [employer] Work Phone: LV ESV BP 10 mL Abnormal 19 - 49 mL [facility] [employer] Work Phone: LV ESV Index A2C 6 mL/m2 [facility] [employer] Work Phone: LV ESV Index A4C 7 mL/m2 [facility] [employer] Work Phone: LV ESV Index BP 6 mL/m2 [facility] [employer] Work Phone: LVOT Area 2.8 cm2 [facility] [employer] Work Phone: LVOT Cardiac Output 5.1 liter/mi nu te [facility] [employer] Work Phone: LVOT Diameter 1.9 cm [facility] [employer] Work Phone: LVOT Mean Gradient 2 mmHg [facility] [employer] Work Phone: LVOT Peak Gradient 4 mmHg [facility] [employer] Work Phone: LVOT Peak Velocity 1.0 m/s [facility] [employer] Phone: [phone] LVOT Stroke Volume Index 35.8 mL/m2 [facility] [employer] Phone: [phone] LVOT SV 55.8 ml [facility] [employer] Phone: [phone] LVOT VTI 19.7 cm [facility] [employer] Phone: [phone] MV A Velocity 1.21 m/s [facility] [employer] Phone: [phone] MV E Velocity 0.64 m/s [facility] [employer] Phone: [phone] MV E Wave Deceleration Time 84.0 ms [facility] [employer] Phone: [phone] MV E/A 0.53 [facility] [employer] Phone: [phone] PASP 32 mmHg [facility] [employer] Phone: [phone] RV Free Wall Peak S' 13 cm/s [facility] [employer] Phone: [phone] RVSP 32 mmHg [facility] [employer] Phone: [phone] Sinotubular Junction 2.[address] [facility] [employer] Phone: [phone] TAPSE 1.7 cm 1.7 cm [facility] [employer] Phone: [phone] TR Max Velocity 2.69 m/s [facility] [employer] Phone: [phone] TR Peak Gradient 29 mmHg [facility] [employer] Phone: [phone] [facility] [employer] Phone: Heart Transthoracicon Left Ventricle: Left ventricle [...] [#/Vol] 0.0 10*3/uL 0.0 - 0.2 10*3/uL [facility] Basophils/100 WBC (Bld) 0.5 % 0.0 - 2.0 % [facility] Eosinophils (Bld) [#/Vol] 0.1 10*3/uL 0.0 - 0.5 10*3/uL [facility] Eosinophils/100 WBC (Bld) 2.2 % 1.0 - 6.0 % [facility] Erythrocyte distribution width (RBC) [Ratio] 14.6 % High 11.5 - 14.5 % [facility] Hematocrit (Bld) [Volume fraction] 37.9 % 35.0 - 47.0 % [facility] Hemoglobin (Bld) [Mass/Vol] 12.3 g/dL 11.7 - 16.0 g/dL [facility] Interpretation and review of laboratory results Abnormal [facility] Lymphocytes (Bld) [#/Vol] 0.9 10*3/uL Low 1.0 - 4.3 10*3/uL [facility] Lymphocytes/100 WBC (Bld) 13.7 % Low 20.0 - 40.0 % [facility] MCH (RBC) [Entitic mass] 27.6 pg 26.0 - 34.0 pg [facility] MCHC (RBC) [Mass/Vol] 32.4 % 32.0 - 36.0 % [facility] MCV (RBC) [Entitic vol] 85.1 fL 80.0 - 98.0 fL [facility] Monocytes (Bld) [#/Vol] 0.5 10*3/uL 0.0 - 0.8 10*3/uL [facility] Monocytes/100 WBC (Bld) 8.6 % 2.0 - 10.0 % [facility] Neutrophils (Bld) [#/Vol] 4.8 10*3/uL 1.8 - 7.0 10*3/uL [facility] Neutrophils/100 WBC (Bld) 75.0 % 40.0 - 80.0 % [facility] Nucleated RBC/100 WBC (Bld) [Ratio] 0.0 % [facility] Platelet mean volume (Bld) [Entitic vol] 9.3 fL 7.4 - 12.4 fL [facility] Platelets (Bld) [#/Vol] 258 10*3/uL 140 - 440 10*3/uL [facility] RBC (Bld) [#/Vol] 4.45 10*6/uL 3.8 - 5.20 10*6/uL [facility] WBC (Bld) [#/Vol] 6.4 10*3/uL 3.6 - 10.7 10*3/uL [facility] CK [Catalytic activity/Vol]o n 01-16-2024 Interpretation and review of laboratory results Normal [facility] COVID-19, Flu A/B, and RSV C omboon 01-16-2024 Interpretation and review of laboratory results Normal [facility] CT Abdomen and Pelvis W cont rast Analisa 01-16-2024 No acute injury with in the abdomen/pelvis. Mild proximal colitis. Colonic and duodenal diverticulosis. Bilateral renal cortical atrophy. Moderate sized sliding hiatal hernia. Report Dictated on Electronically Signed By: Jessie Pinedo MD Electronically Signed Date/Time: 01/16/2024 10:46 AM [facility] Patient Name: FARZANA KELLEY : 1940 [facility]#: [id number] Exam Date/Time: 01/16/2024 10:17 Procedure: CT ABDOMEN [...] No acute fracture.. Soft Tissues: Normal. [facility] Shahida Lindsay oRman D - 01/16/2024 Patient Name: FARZANA HERRON : 1940 [facility]#: [id number] Exam Date/Time: 01/16/2024 10:17 Procedure: CT ABDOMEN [...] Electronically Signed Date/Time: 01/16/2024 10:46 AM EST [facility] [employer] Radiology Study observation (narrative) [facility] [employer] CT Abdomen and Pelvis W cont rast IVOrdered By: Jessie Pinedo on 01-16-2024 [facility] Work Phone: CT Cervical spine WO contras ton 01-16-2024 1. No acute cervical spine fracture. 2. Spiculated nodule at the left lung apex measuring 2.1 cm. Refer to concurrent chest CT for further evaluation. 3. Osteopenia. 4. Multilevel degenerative changes of the cervical spine. Report Dictated on Electronically Signed By: Leonel Rubio MD Electronically Signed Date/Time: 01/16/2024 10:30 AM EST [employer] [facility] Patient Name: FARZANA KELLEY : [...] concurrent chest CT for further evaluation. [facility] Leonel Rubio MD - 01/16/2024 Patient Name: FARZANA HERRON : 1940 [facility]#: [id number] Exam Date/Time: 01/16/2024 10:11 Procedure: CT CERVICAL [...] Electronically Signed Date/Time: 01/16/2024 10:30 AM EST [employer] [facility] CT Chest WO contraston 01-16 Patient [...] degenerative changes of the imaged spine. [facility] Leonel Rubio MD - 01/16/2024 [...] TEST COMMUNICATION: Dr. Wasserman was notified via [employer] Secure Chat today at 10:47 AM. 2017 [...] Electronically Signed Date/Time: 01/16/2024 10:47 AM EST [facility] CT Head WO contraston 2023 No acute intracranial hemorrhage or mass effect. 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 Report Dictated on Electronically Signed By: Leonel Rubio MD Electronically Signed Date/Time: 01/16/2024 10:27 AM EST [employer] [facility] 1940 [id number] Exam Date/Time: 01/16/2024 10:09 Procedure: CT HEAD [...] depressed calvarial fracture. Bilateral lens replacements. [facility] [employer] Leonel Rubio MD - 01/16/2024 Patient Name: [facility]ERR[facility] 1940 [id number] Exam Date/Time: 01/16/2024 10:09 Procedure: CT HEAD [...] Electronically Signed Date/Time: 01/16/2024 10:27 AM EST [facility] Comprehensive metabolic 1998 panelon 01-16-2024 Albumin [Mass/Vol] 3.8 g/dL 3.5 - 5.0 g/dL [facility] ALP [Catalytic activity/Vol] 117 U/L 38 - 126 U/L [facility] ALT [Catalytic activity/Vol] 16 U/L 0 - 34 U/L [facility] Anion gap [Moles/Vol] 9 mmol/L 3 - 13 mmol/L [facility] AST [Catalytic activity/Vol] 23 U/L 15 - 46 U/L [facility] Bilirubin [Mass/Vol] 0.7 mg/dL 0.2 - 1 .3 mg/dL [facility] Calcium [Mass/Vol] 8.7 mg/dL 8.4 - 10. 4 mg/dL [facility] Chloride [Moles/Vol] 103 mmol/L 98 - 10 7 mmol/L [facility] CO2 [Moles/Vol] 25 mmol/L 22 - 30 mmol/L [facility] Creatinine [Mass/Vol] 0.89 mg/dL 0.52 - 1.04 mg/dL [facility] GFR/1.73 sq M.predicted MDRD (S/P/Bld) [Vol rate/Area] 64.0 mL/min/{1.73_m2} - PINF [facility] Comment on above: Calculation based on the Chronic Kidney Disease Epidemiology Collaboration (CKD-EPI) equation refit without adjustment for race Glucose [Mass/Vol] 134 mg/dL High 70 - 100 mg/dL [facility] Potassium [Moles/Vol] 3.4 mmol/L Low 3.5 - 5.1 mmol/L [facility] Protein [Mass/Vol] 6.5 g/dL 6.3 - 8.2 g/dL [facility] Sodium [Moles/Vol] 137 mmol/L 135 - 145 mmol/L [facility] Urea nitrogen [Mass/Vol] 13 mg/dL 7 - 17 mg/dL [facility] Laboratory - Chemistry and C hemistry - challengeon 01-16-2024 Troponin I.cardiac [Mass/Vol] ng/mL [facility] - 0.034 ng/mL [facility] Troponin I.cardiac [Mass/Vol] ng/mL [facility] - 0.034 ng/mL [facility] Troponin I.cardiac [Mass/Vol] ng/mL [facility] - 0.034 ng/mL [facility] Lactate [Moles/Vol] 1.8 mmol/L 0.7 - 2. 0 mmol/L [facility] CK [Catalytic activity/Vol] 39 U/L 30 - 170 U/L [facility] Lipase [Catalytic activity/Vol] 321 U/L High 23 - 300 U/L [facility] Laboratory - Microbiology an d Antimicrobial susceptibilityon 01-16-2024 FLUAV RNA SARY+probe Ql (Resp) Not detected Not Detected [facility] FLUBV RNA SARY+probe Ql (Resp) Not detected Not Detected [facility] RSV RNA SARY+probe Ql (Resp) Not detected Not Detected [facility] SARS-CoV-2 (COVID-19) RNA SARY+probe Ql (Resp) Not detected Not Detected [facility] SARS-CoV-2 (COVID-19) RNA SARY+probe Ql (Unsp spec) Methodology: real-time, RT-PCR The SARS-CoV-2, Flu A/B, and RSV Combo assay is intended for in vitro diagnostic use under the FDA Emergency Use Authorization (EUA). This test has not been FDA cleared or approved. In compliance with this authorization, please visit www.fda.gov/media/748759/andrez nload or www.fda.gov/media/254500/andrez nload to access the applicable information sheets. [facility] No Panel Informationon 01-16 Radiology Study observation (narrative) [facility] Interpretation and review of laboratory results Normal [facility] Interpretation and review of laboratory results Abnormal [facility] Radiology Study observation (narrative) [facility] P Minier -30 degrees [facility] UT Interval 159 ms [facility] QRS Minier -36 degrees [facility] QRSD Interval 79 ms [facility] QT Interval 392 ms [facility] QTC Interval 453 ms [facility] T Wave Minier 51 degrees [facility] Sinus rhythm Probable left atrial enlargement Inferior infarct, old No acute change compared to first previous EKG. Electronically Signed On 01-16-2024 08:51:37 EST by Don Wasserman CV Don Bella MD - 01/16/2024 IMPRESSION: Sinus rhythm Probable left atrial enlargement Inferior infarct, old No acute change compared to first previous EKG. Electronically Signed On 01-16-2024 08:51:37 EST by Don Wasserman [facility] Troponin I.cardiac [Mass/Vol ]on 01-16-2024 Interpretation and review of laboratory results Normal [facility] Patients with high l evels of Biotin oral intake (ie >5 mg/day) may have falsely decreased Troponin levels. [facility] Interpretation and review of laboratory results Normal [facility] Patients with high l evels of Biotin oral intake (ie >5 mg/day) may have falsely decreased Troponin levels. [facility] Interpretation and review of laboratory results Normal [facility] Patients with high l evels of Biotin oral intake (ie >5 mg/day) may have falsely decreased Troponin levels. [facility] Urinalysis complete panel (U )Ordered By: Brendon Pederson on 01-16-2024 Bacteria LM.HPF (Urine sed) [#/Area] Few Abnormal Negative /HPF [facility] Bilirubin Ql (U) Negative Negative mg/dL [facility] Clarity (U) Clear Clear [facility] Color (U) Colorless Lt. Yellow [facility] Epithelial cells.squamous LM.HPF (Urine sed) [#/Area] 0-2 [facility] Glucose Ql (U) Normal Normal (<70) mg/dL [facility] Hemoglobin Ql (U) Negative Negative mg/dL [facility] Interpretation and review of laboratory results Abnormal [facility] Ketones (U) [Mass/Vol] Negative Negative mg/dL [facility] Leukocyte esterase Test strip Ql (U) 25 Abnormal Negative Salvador/uL [facility] Nitrite Ql (U) Negative Negative [facility] pH (U) 6.5 [pH] 5.0 - 8.0 pH [facility] Protein (U) [Mass/Vol] Negative Negative mg/dL [facility] RBC LM.HPF (Urine sed) [#/Area] 0-2 [facility] Specific gravity (U) [Rel density] 1.021 1.005 - 1.030 [facility] Urobilinogen (U) [Mass/Vol] Normal Normal (0-1) mg/dL [facility] WBC LM.HPF (Urine sed) [#/Area] 3-5 [facility] Vital signson 01-16-2024 Heart rate 80 /min bpm [facility] XR Chest Single viewon 01-16 FINDINGS/IMPRESSION: 1. Lines/Tubes/Devices/Hardware : None. 2. Lungs: Possible nodular airspace opacity at the left lung apex measuring 1.9 cm. Further evaluation with CT of the chest is recommended. No consolidation or pulmonary edema. 3. Pleura: No pneumothorax or large pleural effusions. 4. Heart and mediastinum: Normal cardiomediastinal contours. CRITICAL TEST COMMUNICATION: Dr. Wasserman was notified via [employer] Secure Chat today at 9:37 AM. Report Dictated on Electronically Signed By: Leonel Rubio MD Electronically Signed Date/Time: 01/16/2024 9:37 AM [facility] Patient Name: FARZANA KELLEY : [...] was obtained and reviewed. Special views: None. [facility] Leonel Rubio MD - 01/16/2024 Patient [...] TEST COMMUNICATION: Dr. Wasserman was notified via [employer] Secure Chat today at 9:37 AM. Report Dictated on Electronically Signed By: Leonel Rubio MD Electronically Signed Date/Time: 01/16/2024 9:37 AM EST [facility] XR Chest Single viewOrdered By: Leonel Rubio on 01-16-2024 [facility] Work Phone: Carotid Duplex Ultrasound Completeon 02-26-2021 VL Carotid Duplex Ultrasound Complete Patient Name: FARZANA HERRON Ultrasound ACCESSION EXAM DATE/TIME PROCEDURE ORDERING PROVIDER [id number] 02/26/2021 15:32 EDT VL Carotid Duplex DO CONDE EUGENE F. Ultrasound Complete CPT code 54054 Reason For Exam ( Carotid Duplex Ultrasound [...] 02/28/2021 2:08 Cardiovascular ACCESSION EXAM DATE/TIME PROCEDURE [id number] 02/26/2021 15:32 EDT Carotid Duplex Ultrasound Complete CPT code 12785 Reason For Exam ( Carotid Duplex Ultrasound [...] Transcribed Date and Time: 02/28/2021 2:08 Normal [facility] XR CHEST STANDARD (2 VW)Orde red By: Wayne Conde on 11-04-2019 Patient Name: FARZANA KELLEY ---Diagnostic Radiology--- Exam Date/Time 11/04/2019 14:36:00 EST Exam CR Chest PA/LAT Ordering Physician DO CONDE EUGENE F. Accession Number [id number] CPT4 Codes 60915 () Reason For Exam ? hemoptysis Report [...] ALFRED Transcribed Date and Time: 11/04/2019 3:23 [facility] Work Phone: [facility] Incoming Radiology Results From [facility] - 11/04/2019 3:25 PM EST Patient Name: FARZANA HERRON ---Diagnostic Radiology--- Exam Date/Time 11/04/2019 14:36:00 EST Exam CR Chest PA/LAT Ordering Physician DO CONDE EUGENE F. Accession Number [id number] CPT4 Codes 97758 () Reason For Exam ? hemoptysis Report [...] ALFRED Transcribed Date and Time: 11/04/2019 3:23 [facility] Work Phone: CNOVon 02-02-2018 CNOV Office Visit (AGCARDWST) -------FARZANA HERRON ([id number]) 1940 FDate Time Provider Department02/02/18 1:00 PM [...] - metBeta kiara for ASHD with prior NE or prior LVEFANDlt;40 (NQF 0070) - metBeta [...] with treatment plan.This note was generated using [employer] voice recognition system, and there may besome [...] Take 1 tablet by mouth daily at bedtime.Iwogv-6-AOL-EPA-Fish Oil 1,000 mg (120 mg-180 mg) cap [...] Nocfelixge is seen since 08/21/16.Electronically Signed:Gal Middleton, [facility] 2017 1:24 [facility]: Wayne Potter Miguel Middleton MD 02/02/2018 [...] programs in your area.Referring Provider: GAL MIDDLETON [[id number]]Allergies As of Date: 02/02/2018 Noted Allergy ReactionCODEINE 03/03/2006 8 - GI UpsetDate Reviewed: 02/02/2018Reviewed by: Morenita (Starr) Margoth - Fully AssessedReason for Visit: Recheck [92]Primary Visit Diagnosis:ASHD (arteriosclerotic heart disease) [I25.10] Other Visit Diagnosis:Hypertension, essential [I10]Order(s):ECG B/O W INTERP (MED OFFICE) [ECG06] Order #: [id number] as of 02/02/2018 Sig: FLUTICASONE 220 MCG/ACTUATION* [...] 1 tablet by mouth daily * OMEGA 1-NVB-SNI-FISH OIL 1,00* Take 1 capsule by mouth [...] T* Take one(1) tablet daily. 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 Chest pain, unspecified [R07.9] INVALID FOR* Chronic total occlusion of coronary artery [I25*INVALID FOR* Collagenous colitis [K52.831] INVALID FOR* More... COPD (chronic obstructive pulmonary disease) (H*INVALID FOR* More... Coronary artery disease involving [place] heart *INVALID FOR* Essential (primary) hypertension [I10] [...] the following areas and commit to making mcfp changes. EAT A WHOLE FOOD, PLANT BASED [...] by GAL MIDDLETON MD on 02/02/18 Normal [facility] PROGRESSon 02-02-2018 PROGRESS HNO ID: [id number] thor: Gal Grigsby: (none)Author Type: PhysicianType: Progress [...] - metBeta kiara for ASHD with prior NE or prior LVEF<40 (NQF 0070) - metBeta [...] with treatment plan.This note was generated using [employer] voice recognition system, and theremay be some [...] tablet Take 1 tablet by mouth daily atbedtime.Bvuxt-6-YFP-EPA-Fi sh Oil 1,000 mg (120 mg-180 mg) [...] Nocfelixge is seen since 08/21/16.Electronically Signed:Gal Middleton, [facility] 2017 1:24 [facility]: Wayne Conde [facility] Vital Signs Date Time Vital Sign Value Performing Clinician Facility 03-09-2025 09:31-0400 Body mass index (BMI) [Ratio] 20.2 kg/m2 Frederic Garcia MD Work Phone: [facility] 03-09-2025 09:31-0400 Body weight 47.17 kg Frederic Garcia MD Work Phone: [facility] 03-09-2025 09:31-0400 Diastolic blood pressure 52 mm[Hg] Frederic Garcia MD Work Phone: [facility] 03-09-2025 09:31-0400 Heart rate 74 /min Frederic Garcia MD Work Phone: [facility] 03-09-2025 09:31-0400 Respiratory rate 16 /min Frederic Garcia MD Work Phone: [facility] 03-09-2025 09:31-0400 Systolic blood pressure 83 mm[Hg] Frederic Garcia MD Work Phone: [facility] 02-16-2025 07:44-0400 Body height 152.4 cm Frederic Garcia MD Work Phone: [phone] [place] [address] 02-16-2025 07:44-0400 Body mass index (BMI) [Ratio] 20.5 kg/m2 Frederic Garcia MD Work Phone: [phone] [place] [address] 02-16-2025 07:44-0400 Body temperature 96.2 [degF] Frederic Garcia MD Work Phone: [phone])[phone] [place] [address] 02-16-2025 07:44-0400 Body weight 47.62 kg Frederic Garcia MD Work Phone: [phone])086-324739 [place] [address] 02-16-2025 07:44-0400 Diastolic blood pressure 60 mm[Hg] Frederic Garcia MD Work Phone: [phone])734-817380 [address] 02-16-2025 07:44-0400 Heart rate 71 /min Frederic Garcia MD Work Phone: 5(311)344-761239 [place] [address] 02-16-2025 07:44-0400 Respiratory rate 18 /min Frederic Garcia MD Work Phone: [phone])856-523039 [place] [address] 02-16-2025 07:44-0400 SaO2% (BldA) [Mass fraction] 87 % Frederic Garcia MD Work Phone: [phone])182-838539 [place] [address] 02-16-2025 07:44-0400 Systolic blood pressure 99 mm[Hg] Frederic Garcia MD Work Phone: [facility] 01-23-2025 15:11-0500 Body temperature 98 [degF] Frederic Garcia MD Work Phone: [phone] [address] [place], [place] [address] 01-23-2025 15:11-0500 Diastolic blood pressure 54 mm[Hg] Frederic Garcia MD Work Phone: 1(571)573-903339 [place] [address] 01-23-2025 15:11-0500 Heart rate 78 /min Frederic Garcia MD Work Phone: [facility] 01-23-2025 15:11-0500 Respiratory rate 15 /min Frederic Garcia MD Work Phone: [facility] 01-23-2025 15:11-0500 SaO2% (BldA) [Mass fraction] 92 % Frederic Garcia MD Work Phone: [facility] 01-23-2025 15:11-0500 Systolic blood pressure 107 mm[Hg] Frederic Garcia MD Work Phone: 4(635)416-116239 [place] [address] 01-23-2025 14:00-0500 Inhaled oxygen flow rate 3 L/min Frederic Garcia MD Work Phone: 7(147)489-996639 [place] [address] 01-23-2025 10:39-0500 Body mass index (BMI) [Ratio] 22.3 kg/m2 Frederic Garcia MD Work Phone: 7(758)243-457339 [place] [address] 01-23-2025 10:39-0500 Body weight 51.8 kg Frederic Garcia MD Work Phone: 0(418)083-979939 [place] [address] 01-12-2025 20:47-0500 Diastolic blood pressure 71 mm[Hg] Frederic Garcia MD Work Phone: 8(328)943-204539 [place] [address] 01-12-2025 20:47-0500 Heart rate 88 /min Frederic Garcia MD Work Phone: [facility] 01-12-2025 20:47-0500 Systolic blood pressure 135 mm[Hg] Frederic Garcia MD Work Phone: [facility] 01-12-2025 16:06-0500 Body temperature 98.2 [degF] Frederic Garcia MD Work Phone: 5(257)266-127139 [place] [address] 01-12-2025 16:06-0500 Respiratory rate 18 /min Frederic Garcia MD Work Phone: 8(027)176-622839 [place] [address] 01-12-2025 16:06-0500 SaO2% (BldA) [Mass fraction] 95 % Frederic Garcia MD Work Phone: 0(854)475-997339 [place] [address] 01-12-2025 06:00-0500 Body mass index (BMI) [Ratio] 22.5 kg/m2 Frederic Garcia MD Work Phone: [facility] 01-12-2025 06:00-0500 Body weight 52 kg Frederic Garcia MD Work Phone: [facility] 01-09-2025 06:47-0500 Inhaled oxygen flow rate 2 L/min Frederic Garcia MD Work Phone: [facility] 01-04-2025 14:15-0500 Body temperature 97.9 [degF] Frederic Garcia MD Work Phone: [facility] 01-04-2025 14:15-0500 Diastolic blood pressure 58 mm[Hg] Frederic Garcia MD Work Phone: 2(933)400-652339 [place] [address] 01-04-2025 14:15-0500 Heart rate 67 /min Frederic Garcia MD Work Phone: 8(134)738-305139 [place] [address] 01-04-2025 14:15-0500 Respiratory rate 18 /min Frederic Garcia MD Work Phone: [facility] 01-04-2025 14:15-0500 SaO2% (BldA) [Mass fraction] 96 % Frederic Garcia MD Work Phone: [facility] 01-04-2025 14:15-0500 Systolic blood pressure 138 mm[Hg] Frederic Garcia MD Work Phone: [facility] 01-02-2025 20:34-0500 Body mass index (BMI) [Ratio] 22.8 kg/m2 Frederic Garcia MD Work Phone: [facility] 01-02-2025 20:34-0500 Body weight 51.2 kg Frederic Garcia MD Work Phone: [facility] 12-22-2024 13:35-0500 Body height 149.9 cm Wayne Conde DO Work Phone: [facility] 12-22-2024 13:35-0500 Body mass index (BMI) [Ratio] 22.82 kg/m2 Wayne Conde DO Work Phone: [employer] [facility] 12-22-2024 13:35-0500 Body temperature 97.81 [degF] Wayne Conde DO Work Phone: [facility] [employer] 12-22-2024 13:35-0500 Body weight 51.26 kg Wayne Conde DO Work Phone: [facility] [employer] [facility] 12-22-2024 13:35-0500 Diastolic blood pressure 65 mm[Hg] Wayne Conde DO Work Phone: [facility] [employer] [facility] 12-22-2024 13:35-0500 Heart rate 89 /min Wayne Conde DO Work Phone: [facility] [employer] [facility] 12-22-2024 13:35-0500 Systolic blood pressure 110 mm[Hg] Wayne Conde DO Work Phone: [facility] [employer] [facility] 09-22-2024 13:45-0400 Body height 149.9 cm Wayne Conde DO Work Phone: [facility] [employer] [facility] 09-22-2024 13:45-0400 Body mass index (BMI) [Ratio] 23.23 kg/m2 Wayne Conde DO Work Phone: [employer] [employer] [facility] 09-22-2024 13:45-0400 Body temperature 97.81 [degF] Wayne Conde DO Work Phone: [facility] [employer] [facility] 09-22-2024 13:45-0400 Body weight 52.16 kg Wayne Conde DO Work Phone: [facility] [employer] [facility] 09-22-2024 13:45-0400 Diastolic blood pressure 66 mm[Hg] Wayne Conde DO Work Phone: [employer] [facility] 09-22-2024 13:45-0400 Heart rate 66 /min Wayne Conde DO Work Phone: [facility] [employer] [facility] 09-22-2024 13:45-0400 SaO2% (BldA) [Mass fraction] 93 % Wayne Conde DO Work Phone: [facility] [employer] [facility] 09-22-2024 13:45-0400 Systolic blood pressure 104 mm[Hg] Wayne Conde DO Work Phone: [facility] [employer] [facility] 05-26-2024 16:00-0400 Diastolic blood pressure 78 mm[Hg] Wayne Galarzaa DO Work Phone: [facility] [employer] [facility] 05-26-2024 16:00-0400 Heart rate 68 /min Wayne Conde DO Work Phone: [facility] [employer] [facility] 05-26-2024 16:00-0400 Systolic blood pressure 132 mm[Hg] Wayne Galarzaa DO Work Phone: [facility] [employer] [facility] 05-26-2024 15:01-0400 Body height 149.9 cm Wayne Conde DO Work Phone: [facility] [employer] [facility] 05-26-2024 15:01-0400 Body mass index (BMI) [Ratio] 24.44 kg/m2 Wayne Conde DO Work Phone: [facility] [employer] [facility] 05-26-2024 15:01-0400 Body temperature 97 [degF] Wayne Conde DO Work Phone: [facility] [employer] [facility] 05-26-2024 15:01-0400 Body weight 54.88 kg Wayne Conde DO Work Phone: [facility] [employer] [facility] 05-26-2024 15:01-0400 SaO2% (BldA) [Mass fraction] 94 % Wayne Conde DO Work Phone: [facility] [employer] [facility] 02-04-2024 15:05-0400 Diastolic blood pressure 78 mm[Hg] Wayne Conde DO Work Phone: [facility] [employer] [facility] 02-04-2024 15:05-0400 Heart rate 68 /min Wayne Galarzaa DO Work Phone: [facility] [employer] [facility] 02-04-2024 15:05-0400 Systolic blood pressure 138 mm[Hg] Wayne Galarzaa DO Work Phone: [facility] [employer] [facility] 02-04-2024 14:35-0400 Body height 149.9 cm Wayne Conde DO Work Phone: [facility] [employer] [facility] 02-04-2024 14:35-0400 Body mass index (BMI) [Ratio] 23.43 kg/m2 Wayne Conde DO Work Phone: [facility] [employer] [facility] 02-04-2024 14:35-0400 Body temperature 97 [degF] Wayne Conde DO Work Phone: [facility] [employer] [facility] 02-04-2024 14:35-0400 Body weight 52.62 kg Wayne Conde DO Work Phone: [facility] [employer] [facility] 02-04-2024 14:35-0400 SaO2% (BldA) [Mass fraction] 96 % Wayne Conde DO Work Phone: [facility] [employer] [facility] 01-21-2024 08:30-0500 Body temperature 96.49 [degF] Don Wasserman MD Work Phone: [facility] [employer] [facility] 01-21-2024 08:30-0500 Diastolic blood pressure 67 mm[Hg] Don Wasserman MD Work Phone: [facility] [employer] [facility] 01-21-2024 08:30-0500 Heart rate 99 /min Don Wasserman MD Work Phone: [facility] [employer] [facility] 01-21-2024 08:30-0500 Respiratory rate 20 /min Don Wasserman MD Work Phone: [facility] [employer] [facility] 01-21-2024 08:30-0500 SaO2% (BldA) [Mass fraction] 96 % Don Wasserman MD Work Phone: [facility] [employer] [facility] 01-21-2024 08:30-0500 Systolic blood pressure 131 mm[Hg] Don Wasserman MD Work Phone: [facility] [employer] [facility] 01-21-2024 03:00-0500 Body mass index (BMI) [Ratio] 24.04 kg/m2 Don Wasserman MD Work Phone: [facility] [employer] [facility] 01-21-2024 03:00-0500 Body weight 54 kg Don Wasserman MD Work Phone: [facility] [employer] [facility] 01-17-2024 11:20-0500 Body height 149.9 cm Don Wasserman MD Work Phone: [facility] [employer] [facility] 07-17-2023 13:58-0400 Body height 149.9 cm Wayne Conde DO Work Phone: [facility] [employer] [facility] 07-17-2023 13:58-0400 Body mass index (BMI) [Ratio] 24.44 kg/m2 Wayne Conde DO Work Phone: [facility] [employer] [facility] 07-17-2023 13:58-0400 Body temperature 97.5 [degF] Wayne Conde DO Work Phone: [facility] [employer] [facility] 07-17-2023 13:58-0400 Body weight 54.88 kg Wayne Conde DO Work Phone: [facility] [employer] [facility] 07-17-2023 13:58-0400 Diastolic blood pressure 71 mm[Hg] Wayne Conde DO Work Phone: [facility] [employer] [facility] 07-17-2023 13:58-0400 Heart rate 71 /min Wayne Conde DO Work Phone: [facility] [employer] [facility] 07-17-2023 13:58-0400 SaO2% (BldA) [Mass fraction] 95 % Wayne Conde DO Work Phone: [facility] [employer] [facility] 07-17-2023 13:58-0400 Systolic blood pressure 116 mm[Hg] Wayne Conde DO Work Phone: [facility] [employer] [facility] 01-09-2023 12:54-0500 Diastolic blood pressure 72 mm[Hg] Wayne Conde DO Work Phone: [facility] [employer] [facility] 01-09-2023 12:54-0500 Heart rate 68 /min Wayne Conde DO Work Phone: [facility] [employer] [facility] 01-09-2023 12:54-0500 Systolic blood pressure 118 mm[Hg] Wayne Conde DO Work Phone: [facility] [employer] [facility] 01-09-2023 12:17-0500 Body height 149.9 cm Wayne Conde DO Work Phone: [facility] [employer] [facility] 01-09-2023 12:17-0500 Body mass index (BMI) [Ratio] 25.04 kg/m2 Wayne Conde DO Work Phone: [facility] 01-09-2023 12:17-0500 Body temperature 97.11 [degF] Wayne Conde DO Work Phone: [facility] 01-09-2023 12:17-0500 Body weight 56.25 kg Wayne Conde DO Work Phone: [facility] 01-09-2023 12:17-0500 SaO2% (BldA) [Mass fraction] 96 % Wayne Conde DO Work Phone: [facility] Encounters Encounter Date Encounter Type Care Provider Facility Start: 06-07-2025 End: 06-07-2025 Refill Wayne Conde DO Work Phone: [facility] Start: 05-25-2025 End: 05-26-2025 Refill Wayne Conde DO Work Phone: [facility] Start: 05-03-2025 End: 05-03-2025 Telephone encounter Wayne Conde DO Work Phone: [facility] Comment on above: Other Start: 05-02-2025 End: 05-02-2025 Telephone encounter Wayne Conde DO Work Phone: [facility] Comment on above: Appointment (RAJ felipe t need to scheduled ) Start: 04-29-2025 End: 06-08-2025 Telephone encounter Wayne Conde DO Work Phone: [facility] Comment on above: Appointment Request Referral Start: 03-24-2025 End: 03-24-2025 ambulatory Frederic Garcia MD Work Phone: [facility] Work Phone: Start: 03-24-2025 End: 03-24-[address] Leena Corado MD -[facility] Start: 03-24-2025 End: 03-24-2025 ambulatory [facility] Facility:[facility] Start: 03-09-2025 End: 03-09-[address] Adreil Charles MD -[facility] Work Phone: Start: 03-09-2025 End: 03-09-2025 ambulatory Adriel Charles Facility:[facility] Start: 02-16-2025 End: 02-16-2025 Patient encounter procedure Jennifer Tolbert [employer] INST[employer]ER- -[facility] Work Phone: Start: 02-16-2025 End: 02-16-2025 ambulatory Jennifer Tolbert NP Facility:[facility] Start: 02-01-2025 End: 02-01-2025 ambulatory Frederic Garcia MD Work Phone: [facility] Work Phone: Start: 02-01-2025 End: 02-01-[address] Leena Corado MD -[facility] Start: 02-01-[address] Leena Corado MD -[facility] Start: 02-01-2025 End: 02-01-2025 ambulatory [facility] Facility:[facility] Start: 01-28-2025 End: 01-28-2025 ambulatory Frederic Garcia MD Work Phone: [facility] Work Phone: Start: 01-28-2025 End: 01-28-[address] Leena Corado MD -[facility] Start: 01-28-2025 End: 01-28-2025 ambulatory Leena GARCIA Facility:[facility] Start: 01-24-2025 End: 01-24-2025 ambulatory Frederic Garcia MD Work Phone: [facility] Work Phone: Start: 01-24-2025 End: 01-24-[address] Leena Corado MD -[facility] Start: 01-24-[address] Leena Corado MD -[facility] Start: 01-24-2025 End: 01-24-2025 ambulatory [facility] Facility:[facility] Start: 01-23-2025 End: 01-23-2025 Emergency department patient visit Dr. Frederic Garcia MD -Emergency Department Work Phone: Start: 01-20-2025 End: 01-20-2025 ambulatory Frederic Garcia MD Work Phone: [facility] Work Phone: Start: 01-20-2025 End: 01-20-[address] Leena Corado MD -[facility] Start: 01-20-[address] Leena Corado MD -[facility] Start: 01-20-2025 End: 01-20-2025 ambulatory [facility] Facility[facility] Start: 01-17-2025 ambulatory Wayne Petrilla Facilit y:[facility] Start: 01-17-[address] Leena Corado MD -[facility] Start: 01-13-2025 ambulatory Wayne Petria Facilit y:[facility] Start: 01-13-[address] Leena Corado MD -[facility] Start: 01-12-2025 Non-patient / Non-visit Dr. Tan Triplett MD -[facility] Work Phone: Start: 01-11-2025 Non-patient / Non-visit Dr. Tan Triplett MD -[facility] Work Phone: Start: 01-10-2025 Non-patient / Non-visit Dr. Tan Triplett MD -[facility] Work Phone: Start: 01-09-2025 End: 01-12-2025 Evaluation and management of inpatient Dr. Tan Triplett MD -[facility] Work Phone: Start: 01-09-2025 Non-patient / Non-visit Dr. Shamir Costa DO -[facility] Work Phone: Start: 01-09-2025 End: 01-12-2025 ambulatory Maynor Costa Facility:[facility] Start: 01-04-2025 Non-patient / Non-visit Dr. Ngozi Bauer DO -[facility] Work Phone: Start: 01-03-2025 Non-patient / Non-visit Dr. Ngozi Bauer DO -[facility] Work Phone: Start: 01-02-2025 End: 01-04-2025 ambulatory [facility] Facility:[facility] Start: 01-02-2025 End: 01-04-2025 Evaluation and management of inpatient Dr. Priyank Bauer DO -[facility] Work Phone: Start: 12-31-2024 End: 01-03-2025 Refill Wayne Abbey Elton MILLER Work Phone: [facility] Start: 12-22-2024 End: 12-22-2024 Office outpatient visit 25 minutes Wayne Abbey Elton MILLER Work Phone: [facility] Comment on above: Essential hypertensi on (Primary Dx); Alzheimer's disease, unspecified (CODE) (HCC); Chronic systolic (congestive) heart failure (HCC); Gastroesophageal reflux disease without esophagitis; Chronic bronchitis, unspecified chronic bronchitis type (HCC); Coronary artery disease involving [place] heart without angina pectoris, unspecified vessel or lesion type; Neuropathy; Hypercholesterolemia; Irregular heart rhythm Essential hypertensi on (Primary Dx); Alzheimer's disease, unspecified (CODE) (HCC); Chronic systolic (congestive) heart failure (HCC); Gastroesophageal reflux disease without esophagitis; Chronic bronchitis, unspecified chronic bronchitis type (HCC); Coronary artery disease involving [place] heart without angina pectoris, unspecified vessel or lesion type; Neuropathy; Hypercholesterolemia; Irregular heart rhythm; Normochromic normocytic anemia Start: 12-22-2024 End: 12-22-2024 ambulatory [facility] Start: 11-30-2024 End: 11-30-2024 Refill Wayne Potter Elton MILLER Work Phone: [facility] Start: 09-23-2024 End: 09-23-2024 Refill Wayne Conde DO Work Phone: [facility] Start: 09-22-2024 End: 09-22-2024 Office outpatient visit 25 minutes Wayne Conde DO Work Phone: [facility] Comment on above: Essential hypertensi on (Primary Dx); Alzheimer's disease, unspecified (CODE) (HCC); Coronary artery disease involving [place] heart without angina pectoris, unspecified vessel or lesion type; Chronic bronchitis, unspecified chronic bronchitis type (HCC); Chronic systolic (congestive) heart failure (HCC); Compression fracture of thoracic vertebra, unspecified thoracic vertebral level, sequela; Hypercholesterolemia; Acquired hypothyroidism Start: 09-22-2024 End: 09-22-2024 ambulatory [facility] Start: 08-26-2024 End: 08-26-2024 Refill Wayne Galarzaa DO Work Phone: [facility] Start: 07-28-2024 End: 07-28-2024 Refill Wayne Conde DO Work Phone: [facility] Start: 07-12-2024 End: 07-12-2024 Refill Wayne Conde DO Work Phone: [facility] Start: 05-26-2024 End: 05-26-2024 Office outpatient visit 25 minutes Wayne Galarzaa DO Work Phone: [facility] Comment on above: Coronary artery dise ase involving [place] heart without angina pectoris, unspecified vessel or lesion type (Primary Dx); History of myocardial infarction; Alzheimer's disease, unspecified (CODE) (HCC); Hypercholesterolemia; Acquired hypothyroidism; Chronic bronchitis, unspecified chronic bronchitis type (HCC); Neuropathy; Anxiety; Scalp hematoma, initial encounter Start: 05-19-2024 End: 05-19-2024 Refill Wayne Galarzaa DO Work Phone: [facility] Start: 02-18-2024 Refill Wayne kauffmana DO Work Phone: [facility] Start: 02-05-2024 Telephone encounter Wayne Abbey Josephine poe DO Work Phone: [facility] Comment on above: Referral (Home Nursi ng) Start: 02-04-2024 End: 02-04-2024 Office outpatient visit 25 minutes Wyane Conde DO Work Phone: [facility] Comment on above: Essential hypertensi on (Primary Dx); Alzheimer's disease, unspecified (CODE) (HCC); Chronic systolic (congestive) heart failure (HCC); Chronic bronchitis, unspecified chronic bronchitis type (HCC); Hypercholesterolemia; Lumbar degenerative disc disease; Coronary artery disease involving [place] heart without angina pectoris, unspecified vessel or lesion type; Acquired hypothyroidism Start: 01-23-2024 Telephone encounter Wayne Abbey Josephine poe DO Work Phone: [facility] Comment on above: Request For Order(s) (Rollator) Start: 01-16-2024 End: 01-21-2024 Evaluation and management of inpatient Don Wasserman MD Work Phone: [facility] Comment on above: Syncope and collapse (Primary Dx); Lung nodule; Dehydration; Colitis; Hypokalemia; Syncope, unspecified syncope type; Cognitive deficits Start: 08-19-2023 Refill Wayne Abbey Nyasia justice DO Work Phone: [facility] Start: 08-01-2023 Telephone encounter Wayne poe DO Work Phone: [facility] Comment on above: requested Rx refill? 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[place] heart without angina pectoris, unspecified vessel or lesion type Start: 05-26-2023 Refill Wayne justice DO Work Phone: [facility] Start: 05-09-2023 Refill Wayne justice DO Work Phone: [facility] Comment on above: Other osteoarthritis of spine, thoracic region Start: 03-26-2023 Refill Wayne justice DO Work Phone: [facility] Start: 01-19-2023 Orders Only Wayne justice DO Work Phone: [facility] Start: 01-09-2023 End: 01-09-2023 Office outpatient visit 25 minutes Wayne Abbey Nyasiavinh DO Work Phone: [facility] Comment on above: Neuropathy (Primary Dx); Essential hypertension; Hypercholesterolemia; Chronic systolic (congestive) heart failure (HCC); Coronary artery disease involving [place] heart without angina pectoris, unspecified vessel or [...] Hemoptysis Start: 08-10-2018 Ambulatory [facility] Facility :[facility] Start: 02-02-2018 End: 02-02-2018 Ambulatory [facility]AL [facility] Procedures Date Procedure Procedure Detail Performing [...] angiography of ch est with contrast Frederic Garcia MD Work Phone: Start: 01-23-2025 Estimated creatinine clearance Frederic Garcia MD Work Phone: Start: 01-17-2025 Measurement of renal function Frederic Garcia MD Work Phone: Comment on above: GFR Calc Start: 01-13-2025 Measurement of renal function Frederic Garcia MD Work Phone: Comment on above: GFR Calc Start: 01-13-2025 Vitamin B12 measurement Frederic Garcia MD Work Phone: Start: 01-13-2025 Vitamin D, 25-hydrox y measurement Frederic Garcia [...] Phone: Start: 12-22-2024 Comprehensive metabo lic panel Wayne Conde DO Work Phone: Start: 12-22-2024 Ecg routine ecg w/le ast 12 lds w/i&r Wayne Conde DO Work Phone: Start: 09-22-2024 Adult depression screening assessment Wayne Conde DO Work Phone: Start: 01-21-2024 Radiologic exam abdo men 1 view Louann Martinezs MANAGER BUSINESS - PHARMACY TECHNOLOGIST Work Phone: Start: 01-21-2024 Basic metabolic pane l calcium total Louann Stiven MANAGER BUSINESS - PHARMACY TECHNOLOGIST Work Phone: Start: 01-20-2024 25 hydroxy includes fractions if performed Zunilda Diamond MANAGER BUSINESS - PHARMACY TECHNOLOGIST Work Phone: Start: 01-19-2024 Basic metabolic pane l calcium total Adrien Curry MANAGER BUSINESS - PHARMACY TECHNOLOGIST Work Phone: Start: 01-18-2024 Glucose quantitative blood xcpt reagent strip Adrien Deborah Curry APRN - PHARMACY TECHNOLOGIST Work Phone: Start: 01-18-2024 Radiologic exam abdo men 1 view Darienjovani Curry MANAGER BUSINESS - PHARMACY TECHNOLOGIST Work Phone: Start: 01-18-2024 Ecg routine ecg w/le ast 12 lds trcg only w/o i&r Adrien Cabrera Sue ROJASN - PHARMACY TECHNOLOGIST Work Phone: Start: 01-17-2024 Echo tthrc r-t [...] Ct cervical spine w/ o contrast material Dno Wasserman MD Work Phone: Start: 01-16-2024 Ct [...] panel - S vi or Plasma Wayne Conde DO Work Phone: Start: 07-11-2022 Thyrotropin [Units/volume] [...] cancer screen colonoscopy Colon cancer screen colonoscopy [facility] Work Phone: Start: 10-29-2028 Screening for malignant neoplasm of colon Colon cancer screen colonoscopy [facility] Work Phone: Start: 07-11-2027 Lipid panel Lipid Panel [facility] Start: 01-13-2026 Thyroid stimulating hormone measurement TSH Level [facility] Start: 12-22-2025 Creatinine measurement Creatinine Level [facility] Start: 12-22-2025 Diabetes: Estimated Glomerular Filtration Rate for Kidney Health Diabetes: Estimated Glomerular Filtration Rate for Kidney Health [facility] Start: 12-22-2025 Potassium measurement Potassium Level [facility] Start: 09-22-2025 Depression Screening Depression Screening [facility] Start: 07-25-2025 Influenza vaccination Influenza Vaccine (#1) [facility] Start: 07-18-2025 End: 07-18-2025 Patient encounter procedure 07/18/2025 2:20 PM EDT Office Visit [facility] [address] [place] [address] Wayne Conde, [address] [place] [address] [facility] Start: 03-23-2025 Depression Monitoring Depression Monitoring [facility] Start: 03-16-2025 End: 03-16-2025 Patient encounter procedure 03/16/2025 4:00 PM EDT Office [facility] [address] [place] [address] Wayne Conde, [address] [place] [address] [facility] Start: 01-23-2025 [facility] Start: 01-23-2025 [facility] Start: 01-21-2025 Creatinine measurement Creatinine Level [facility] Start: 01-21-2025 Diabetes: Estimated Glomerular Filtration Rate for Kidney Health Diabetes: Estimated Glomerular Filtration Rate for Kidney Health [facility] Start: 01-21-2025 Potassium measurement Potassium Level [facility] Start: 01-17-2025 Echocardiography Echocardiogram [facility] Start: 01-17-2025 Thyroid stimulating hormone measurement TSH Level [facility] Start: 01-12-2025 Patient discharge [facility] Start: 01-11-2025 [facility] Start: 01-10-2025 Care planning and problem solving actions [facility] Start: 01-10-2025 Application of ice collar, cap or bag [facility] Start: 01-09-2025 [facility] Start: 01-09-2025 Application of intermittent pneumatic compression device [facility] Start: 01-09-2025 Following clinical pathway protocol [facility] Start: 01-09-2025 Assessment of risk of venous thromboembolism [facility] Start: 01-09-2025 Documentation procedure [facility] Start: 01-09-2025 Insertion of catheter into peripheral vein [facility] Start: 01-09-2025 Measuring intake and output [facility] Start: 01-09-2025 Providing care according to standard [facility] Start: 01-09-2025 Provision of activity privileges [facility] Start: 01-09-2025 Referral to occupational therapist [facility] Start: 01-09-2025 Referral to service [facility] Start: 01-09-2025 Tobacco use cessation education [facility] Start: 01-09-2025 [facility] Start: 01-09-2025 Admission procedure [facility] Start: 01-04-2025 Patient discharge [facility] Start: 01-02-2025 Assessment of risk of venous thromboembolism [facility] Start: 01-02-2025 Insertion of catheter into peripheral vein [facility] Start: 01-02-2025 Providing care according to standard [facility] Start: 01-02-2025 Provision of activity privileges [facility] Start: 01-02-2025 Referral to occupational therapist [facility] Start: 01-02-2025 Referral to service [facility] Start: 01-02-2025 [facility] Start: 01-02-2025 Admission procedure [facility] Start: 12-26-2024 End: 12-26-2025 C reactive protein [Mass/volume] in Serum or Plasma C-reactive protein Lab Routine Normochromic normocytic anemia Expected: 12/26/2024 (Approximate), Expires: 12/26/2025 [facility] [employer] Comment on above: Expected: 12/26/2024 (Approximate), Expi res: 12/26/2025 Start: 12-26-2024 End: 12-26-2025 Cobalamin (Vitamin B12) [Mass/volume] in Serum or Plasma Vitamin B12 Lab Routine Normochromic normocytic anemia Expected: 12/26/2024 (Approximate), Expires: 12/26/2025 [facility] [employer] Comment on above: Expected: 12/26/2024 (Approximate), Expi res: 12/26/2025 Start: 12-26-2024 End: 12-26-2025 Erythrocyte sedimentation rate Sedimentation rate, automated Lab Routine Normochromic normocytic anemia Expected: 12/26/2024 (Approximate), Expires: 12/26/2025 [facility] [employer] [facility] Work Phone: Comment on above: Expected: 12/26/2024 (Approximate), Expi res: 12/26/2025 Start: 12-26-2024 End: 12-26-2025 Ferritin [Mass/volume] in Serum or Plasma Ferritin Lab Routine Normochromic normocytic anemia Expected: 12/26/2024 (Approximate), Expires: 12/26/2025 [facility] Comment on above: Expected: 12/26/2024 (Approximate), Expi res: 12/26/2025 Start: 12-26-2024 End: 12-26-2025 Iron and Iron binding capacity panel - Serum or Plasma Iron and TIBC Lab Routine Normochromic normocytic anemia Expected: 12/26/2024 (Approximate), Expires: 12/26/2025 [facility] Comment on above: Expected: 12/26/2024 (Approximate), Expi res: 12/26/2025 Start: 12-26-2024 End: 12-26-2025 Thyrotropin [Units/volume] in Serum or Plasma TSH Lab Routine Normochromic normocytic anemia Expected: 12/26/2024 (Approximate), Expires: 12/26/2025 [facility] Comment on above: Expected: 12/26/2024 (Approximate), Expi res: 12/26/2025 Start: 12-26-2024 End: 12-26-2025 Thyroxine (T4) free [Mass/volume] in Serum or Plasma T4, free Lab Routine Normochromic normocytic anemia Expected: 12/26/2024 (Approximate), Expires: 12/26/2025 [facility] Comment on above: Expected: 12/26/2024 (Approximate), Expi res: 12/26/2025 Start: 12-26-2024 End: 12-26-2025 Triiodothyronine (T3) Free [Mass/volume] in Serum or Plasma T3, free Lab Routine Normochromic normocytic anemia Expected: 12/26/2024 (Approximate), Expires: 12/26/2025 [facility] Comment on above: Expected: 12/26/2024 (Approximate), Expi res: 12/26/2025 Start: 12-22-2024 End: 12-22-2025 CBC W Auto Differential panel - Blood CBC auto differential Lab Routine Essential hypertension Expected: 12/22/2024 (Approximate), Expires: 12/22/2025 [facility] [employer] [facility] Work Phone: Comment on above: Expected: 12/22/2024 (Approximate), Expi res: 12/22/2025 Start: 12-22-2024 End: 12-22-2025 Comprehensive metabolic 1998 panel - Serum or Plasma Comprehensive metabolic panel Lab Routine Essential hypertension Expected: 12/22/2024 (Approximate), Expires: 12/22/2025 [facility] [employer] Comment on above: Expected: 12/22/2024 (Approximate), Expi res: 12/22/2025 Start: 12-22-2024 End: 12-22-2025 Magnesium [Mass/volume] in Serum or Plasma Magnesium Lab Routine Irregular heart rhythm Expected: 12/22/2024 (Approximate), Expires: 12/22/2025 [facility] [employer] Comment on above: Expected: 12/22/2024 (Approximate), Expi res: 12/22/2025 Start: 12-22-2024 End: 12-22-2024 Patient encounter procedure 12/22/2024 1:30 PM EST Office Visit [facility] [address] [place] [address] Wayne Conde DO [address] [place] [address] [place] [address] [facility] Start: 11-07-2024 Glaucoma screening Diabetes: Retinopathy Screening [facility] Start: 09-22-2024 End: 09-22-2025 CBC W Auto Differential panel - Blood CBC auto differential Lab Routine Essential hypertension Expected: 09/22/2024 (Approximate), Expires: 09/22/2025 [facility] [employer] [facility] Work Phone: Comment on above: Expected: 09/22/2024 (Approximate), Expi res: 09/22/2025 Start: 09-22-2024 End: 09-22-2025 Comprehensive metabolic 1998 panel - Serum or Plasma Comprehensive metabolic panel Lab Routine Essential hypertension Expected: 09/22/2024 (Approximate), Expires: 09/22/2025 [facility] Comment on above: Expected: 09/22/2024 (Approximate), Expi res: 09/22/2025 Start: 09-22-2024 End: 09-22-2025 Lipid 1996 panel - Serum or Plasma Lipid panel Lab Routine Hypercholesterolemia Expected: 09/22/2024 (Approximate), Expires: 09/22/2025 [facility] Comment on above: Expected: 09/22/2024 (Approximate), Expi res: 09/22/2025 Start: 09-22-2024 End: 09-22-2024 Patient encounter procedure [facility] Start: 07-25-2024 COVID-19 Vaccine ( season) COVID-19 Vaccine ( season) [facility] Start: 07-25-2024 COVID-19 Vaccine ( season) COVID-19 Vaccine ( season) [facility] Start: 07-25-2024 Influenza vaccination Influenza Vaccine (#1) [facility] Start: 05-26-2024 End: 05-26-2024 Patient encounter procedure 05/26/2024 3:00 PM EDT Office Visit [facility] [address] [place] [address] Wayne Conde, [address] [place] [address] [facility] Start: 05-12-2024 End: 05-12-2024 Patient encounter procedure 05/12/2024 3:00 PM EDT Office Visit [facility] [address] [place] [address] Wayne Conde, DO [address] [place] [address] [facility] Start: 04-09-2024 Creatinine measurement Creatinine Level [facility] Start: 04-09-2024 Potassium measurement Potassium Level [facility] Start: 04-09-2024 Thyroid stimulating hormone measurement TSH Level [facility] Start: 02-04-2024 End: 02-04-2024 Patient encounter procedure 02/04/2024 2:30 PM EDT Office Visit [facility] [address] [place] [address] Wayne Conde, [address] [place] [address] [facility] Start: 01-15-2024 Creatinine measurement Creatinine Level [facility] Start: 01-15-2024 Potassium measurement Potassium Level [facility] Start: 01-15-2024 Thyroid stimulating hormone measurement TSH Level [facility] Start: 10-23-2023 End: 10-23-2023 Patient encounter procedure [facility] Start: 07-25-2023 COVID-19 Vaccine ( season) COVID-19 Vaccine () [facility] Start: 07-25-2023 Influenza vaccination [facility] Start: 07-17-2023 End: 07-17-2023 Patient encounter procedure 07/17/2023 2:00 PM EDT Office Visit [facility] [address] [place] [address] Wayne Conde DO [address] [place], [place] [id number] [facility] Start: 07-11-2023 Creatinine measurement Creatinine Level [facility] Start: 07-11-2023 Lipid panel Lipid Panel [facility] Start: 07-11-2023 Potassium measurement Potassium Level [facility] Start: 07-11-2023 Thyroid stimulating hormone measurement TSH Level [facility] Start: 04-10-2023 End: 04-10-2023 Patient encounter procedure 04/10/2023 Office Visit [facility] Wayne Potter, DO [address] [place] [address] [facility] Start: 04-09-2023 End: 04-09-2023 Patient encounter procedure 04/09/2023 Office Visit [facility] Wayne Conde Abbey, DO [address] [place] [address] [facility] Start: 01-09-2023 End: 01-09-2024 CBC W Auto Differential panel - Blood CBC auto differential Lab Routine Essential hypertension Expected: 01/09/2023 (Approximate), Expires: 01/09/2024 [facility] Work Phone: Comment on above: Expected: 01/09/2023 (Approximate), Expi res: 01/09/2024 Start: 01-09-2023 End: 01-09-2024 Comprehensive metabolic 1998 panel - Serum or Plasma Comprehensive metabolic panel Lab Routine Essential hypertension Expected: 01/09/2023 (Approximate), Expires: 01/09/2024 [facility] Comment on above: Expected: 01/09/2023 (Approximate), Expi res: 01/09/2024 Start: 01-09-2023 End: 01-09-2024 Thyrotropin [Units/volume] in Serum or Plasma TSH Lab Routine Acquired hypothyroidism Expected: 01/09/2023 (Approximate), Expires: 01/09/2024 [facility] Comment on above: Expected: 01/09/2023 (Approximate), Expi res: 01/09/2024 Start: 07-25-2022 Influenza vaccination Influenza Vaccine (#1) [facility] Start: 03-09-2022 Medicare Annual Wellness (AWV) Medicare Annual Wellness (AWV) [facility] Start: 02-08-2022 Annual Wellness Visit (AWV) Annual Wellness Visit (AWV) [facility] Work Phone: Start: 02-07-2022 Lipid panel Lipid screen [facility] Work Phone: Start: 02-07-2022 TSH Qn TSH testing [facility] Work Phone: Start: 12-20-2021 COVID-19 Vaccine (4 - Booster for Moderna series) COVID-19 Vaccine (4 - Booster for Moderna series) [facility] Start: 12-20-2021 COVID-19 Vaccine (4 - Moderna series) COVID-19 Vaccine (4 - Moderna series) [facility] Start: 08-06-2021 End: 08-06-2021 Office Visit 08/06/2021 Office Visit [facility] Wayne Conde DO [address] [place], [place] [id number] [facility] Start: 07-01-2020 Lipid screen Lipid screen [facility] Work Phone: Start: 07-01-2020 TSH testing TSH testing [facility] Work Phone: Start: 02-03-2020 End: 02-03-2020 Patient encounter procedure 02/03/2020 Office Visit [facility] Wayne Conde, [address], [place] [id number] [facility] Start: 11-10-2019 End: 11-10-2019 Nursing evaluation of patient and report 11/10/2019 Nurse Only [facility] Start: 07-25-2019 Influenza vaccination Flu vaccine (#1) [facility] Work Phone: Start: 05-13-2019 Annual Wellness Visit (AWV) Annual Wellness Visit (AWV) [facility] Work Phone: Start: 10-11-2016 Pneumococcal Vaccine: 65+ Years (2 - PPSV23 if available, else PCV20) Pneumococcal Vaccine: 65+ Years (2 - PPSV23 if available, else PCV20) [facility] Start: 01-13-2015 Shingles Vaccine (2 of 3) Shingles Vaccine (2 of 3) [facility] Work Phone: Start: 01-13-2015 Zoster Vaccines (2 of 3) Zoster Vaccines (2 of 3) [facility] Start: 2014 RSV Immunization for Adults (1 - 1-dose 75+ series) RSV Immunization for Adults (1 - 1-dose 75+ series) [facility] Start: 1999 Hepatitis B Vaccines (1 of 3 - Risk 3-dose series) Hepatitis B Vaccines (1 of 3 - Risk 3-dose series) [facility] Start: 1999 RSV Immunization aged 60 or older (1 - 1-dose 60+ series) RSV Immunization aged 60 or older (1 - 1-dose 60+ series) [facility] Start: 1958 DTaP/Tdap/Td vaccine (1 - Tdap) DTaP/Tdap/Td vaccine (1 - Tdap) [facility] Work Phone: Start: 1958 DTaP/Tdap/Td Vaccines (1 - Tdap) DTaP/Tdap/Td Vaccines (1 - Tdap) [facility] Start: 1958 Urine screening for protein Diabetes: Urine Protein Screening [facility] Start: 1957 Diabetes mellitus screening Diabetes Screening [facility] Start: 1957 Diabetes: Urine Albumin-Creatinine Ratio for Kidney Health Diabetes: Urine Albumin-Creatinine Ratio for Kidney Health [facility] Start: 1951 Depression Screening Depression Screening [facility] Start: 1950 DTaP/Tdap/Td vaccine (1 - Tdap) DTaP/Tdap/Td vaccine (1 - Tdap) [facility] Work Phone: Start: 1949 Diabetic foot examination Diabetes: Foot Exam [facility] Start: 1949 Preventive dental service Diabetes: Dental Exam [facility] Start: 1939 Echocardiography Echocardiogram [facility] Start: 1939 Hemoglobin A1c measurement Diabetes: Hemoglobin A1C [facility] Start: 1939 Hepatitis B Vaccines (1 of 3 - 3-dose series) Hepatitis B Vaccines (1 of 3 - 3-dose series) [facility] Start: 1939 Medicare Annual Wellness (AWV) Medicare Annual Wellness (AWV) [facility] Start: 1939 Screening for osteoporosis Bone Density Scan [employer] [employer] Patient Education Chest Lung pro blems Surg Dx COPD Meds ED COPD Flare [facility] Work Phone: Patient referral [facility] Work Phone: Protein [Mass/volume ] in Serum or Plasma Protein, total Lab Routine Normochromic normocytic anemia Ordered: 12/26/2024 [facility] Comment on above: Ordered: 12/26/2024 Protein, Total and Protein Electrophoresis Protein, Total and Protein Electrophoresis Lab Routine Normochromic normocytic anemia Ordered: 12/26/2024 [facility] Comment on above: Ordered: 12/26/2024 Serum Electrophoresis Serum Elec trophoresis Lab Routine Normochromic normocytic anemia Ordered: 12/26/2024 [employer] Comment on above: Ordered: 12/26/2024 End: 02-26-2021 VL DUP CAROTID BILATERAL VL DUP CAROTID BILATERAL Imaging Routine Once for 1 Occurrences starting 02/26/2021 until 02/26/2021 [facility] Work Phone: Comment on above: Once for 1 Occurrences starting 02/27/20 until 02/26/2021 VL DUP CAROTID BILATERAL VL DUP CAROTID BILATERAL Imaging Routine 02/26/2021 3:32 PM EDT [employer] Work Phone: Immunizations Immunization Date Immunization Notes Care Provider [facility] 09-22-2024 Seasonal trivalent influenza vaccine, adjuvanted, preservative free Wayne Conde DO Work Phone: [employer] 09-22-2024 influenza virus vacc ine, unspecified formulation Wayne Murrelljamarirosina DO Work Phone: [facility] [employer] 10-23-2023 influenza, injectabl e, quadrivalent, preservative free Frederic Garcia MD Work Phone: [facility] 10-23-2023 Influenza, Seasonal, Quadrivalent, Adjuvanted Don Wasserman MD Work Phone: [facility] [employer] [facility] 10-23-2023 influenza virus vacc ine, unspecified formulation Wayne Conde DO Work Phone: [facility] [employer] [facility] 2022 Covid Moderna Bivale nt Booster Frederic Garcia MD Work Phone: [facility] 2022 Influenza, High-dose Seasonal, Quadrivalent, Preservative Free Wayne Murrelllla DO Work Phone: [facility] 10-25-2021 Covid (Moderna) Frederic Garcia MD Work Phone: [facility] 09-26-2021 Influenza, High-dose Seasonal, Quadrivalent, Preservative Free Wayne Murrelllla DO Work Phone: [facility] 09-26-2021 influenza virus vacc ine, unspecified formulation Wayne Galarzaa DO Work Phone: [facility] 01-18-2021 Covid (Moderna) Frederic Garcia MD Work Phone: [facility] 12-21-2020 Covid (Moderna) Frederic Garcia MD Work Phone: [facility] 11-08-2020 Influenza, High-dose , Quadv, 65 yrs +, IM (Fluzone) Wayne Murrellrosina [facility] 11-10-2019 influenza, high dose seasonal, preservative-free Wayne mCASHrosina [facility] 11-10-2019 Influenza, High-dose Seasonal, Quadrivalent, Preservative Free Wayne Murrelllla DO Work Phone: [facility] 09-11-2018 influenza, injectabl e, quadrivalent, preservative free Wayne Murrelllla DO Work Phone: [facility] 10-03-2016 influenza virus vacc ine, unspecified formulation Wayne Murrelllla DO Work Phone: [facility] 10-03-2016 influenza, seasonal, injectable Wayne Galarzaa DO Work Phone: [facility] 10-11-2015 pneumococcal conjuga te vaccine, 13 valent Wayne Galarzaa DO Work Phone: [facility] Work Phone: 11-18-2014 zoster vaccine, live Wayne Conde DO Work Phone: [facility] 09-24-2013 influenza virus vacc ine, whole virus Wayne Murrelllla DO Work Phone: [facility] 09-24-2013 influenza, injectabl e, quadrivalent, preservative free Frederic Garcia MD Work Phone: [facility] 09-22-2009 influenza virus vacc ine, whole virus Wayne Murrelllla DO Work Phone: [facility] 09-22-2009 influenza, injectabl e, quadrivalent, preservative free Frederic Garcia MD Work Phone: [facility] 09-14-2005 pneumococcal Conjuga te, unspecified formulation Wayne Murrelllla DO Work Phone: [facility] 09-14-2005 pneumococcal polysaccharide vaccine, 23 valent Wayne Murrelllla DO Work Phone: [facility] 09-14-2005 pneumococcal vaccine , unspecified formulation Frederic Garcia MD Work Phone: [facility] 07-25-2005 pneumococcal Conjuga te, unspecified formulation Wayne Murrelllla DO Work Phone: [facility] 07-25-2005 pneumococcal polysaccharide vaccine, 23 valent Wayne Murrelllla DO Work Phone: [facility] Work Phone: 07-25-2005 pneumococcal vaccine , unspecified formulation Frederic Garcia MD Work Phone: [facility] Payers Date Payer Category Payer Self-pay 2020 Medicaid [id number] 2018 Medicaid [id number] 2018 Medicaid MEDICAID [facility] DEPT OF JOB xxxxxxxxxxxx 2018-Present [phone] [address] [place] [address] xxxxxxxxxxxx [id number] 2015 Medicare xxxxxxxxxxx [id number] 2005 Commercial Managed C are - HMO [employer] [id number] 2005 Private Health Insurance DAVIAN BERNAL [id number] 2005-Present [facility] [id number] [place] [address] [facility] [id number] 2005 Private Health Insurance [id number] 2004 Medicare [id number] 2004 Medicare [id number] Medicare [id number] Unknown [id number] .462 Unknown [id number] .462 Unknown [id number] .462 Unknown [id number] 2.16.840.1.237476.3.579.2 .462 Unknown [id number] 2.16.840.1.463702.3.579.2 .462 Unknown [id number] 2.16.840.1.194153.3.579.2 .462 Unknown [id number] 2.16.840.1.934785.3.579.2 .462 Unknown [id number] .462 Unknown [id number] 2.16.840.1.505666.3.579.2 .462 Unknown [id number] 2.16.840.1.286467.3.579.2 .462 Unknown [id number] 2.16.840.1.392047.3.579.2 .462 Unknown [id number] 2.16.840.1.819801.3.579.2 .462 Unknown [id number] 2.16.840.1.175240.3.579.2 .462 Unknown [id number] 2.16.840.1.735452.3.579.2 .462 Unknown [id number] 2.16.840.1.665999.3.579.2 .462 Unknown [id number] 2.16.840.1.340896.3.579.2 .462 Unknown [id number] [id number] .462 Unknown [id number] [id number] .462 Unknown [id number] .462 Social History Date Type Detail Facility Start: 02-07-2021 End: 05-26-2024 Tobacco smoking status [facility] Former smoker [employer] Phone: End: 06-08-1990 History of tobacco use Current smoker [employer] Phone: Start: 02-07-2021 End: 05-26-2024 Tobacco use and exposure Never used [employer] Phone: Start: 02-07-2021 End: 12-22-2024 Alcohol intake Current non-drinker of alcohol (finding) [facility] Work Phone: Start: 03-25-2019 History SDOH Alcohol Frequency 1 [facility] Work Phone: Start: 03-25-2019 History SDOH Social Connections Phone 4 [employer] Work Phone: Start: 03-25-2019 History SDOH Social Connections Get [employer] 5 [employer] Work Phone: Start: 03-25-2019 History SDOH Social Connections [employer] Work Phone: Start: 03-25-2019 History SDOH Social Connections Living 3 [facility] Work Phone: Start: 03-25-2019 History SDOH Physica l Activity [facility] Start: 1940 Sex Assigned At Not on file [facility] [employer] Work Phone: End: 06-08-1990 History of tobacco use Cigarette Smoker [facility] [employer] Start: 01-09-2023 End: 01-16-2024 Alcohol intake [facility] Start: 04-09-2023 End: 01-16-2024 Tobacco use panel [facility] Start: 12-30-2022 End: 07-17-2023 Exposure to SARS-CoV-2 (event) Not sure [facility] Has the [employer], [employer], oil, or water [employer] threatened to shut off services in your home in past 12Mo No [facility] Do you belong to any clubs or organizations such as protestant groups, unions, fraternal or athletic groups, or school groups? Yes [facility] Are you now , , , , never or living with a partner? [facility] How often to you hav e a drink containing alcohol? Never [facility] How many standard dr inks containing alcohol do you have on a typical day? Patient does not drink [facility] Do you feel stress - tense, restless, nervous, or anxious, or unable to sleep at night because your mind is troubled all the time - these days [OSQ] Not at all [facility] (I/We) worried wheth er (my/our) food would run out before (I/we) got money to buy more. Never true [facility] Start: 06-24-2022 End: 02-23-2025 Sex Female (finding) [facility] Start: 1940 Sex Assigned At Female W [facility] Goals Date Patient Goal Desired Activity /State [...] Result Facility 01-12-2025 Functional status Bathroom Privilege [facility] Work Phone: 01-04-2025 Functional status Ambulates;Bedrest [facility] Work Phone: Mental Status Date Assessment Result Facility 01-12-2025 Cognitive function Voice/Name [facility] Work Phone: 01-04-2025 Cognitive function Voice/Name [facility] Work Phone: Clinical Notes 01-09-2023 to [...] office visit: 07/18 Updated/Validated preferred pharmacy: Yes [address] Patient instructed to contact the pharmacy [...] of last refill (see medication tab): 09/22/24 [facility] 06-07-2025 Miscellaneous Notes Formattin g of this note might be different from the original. Ordering provider: Elton Date of last office visit: 12/22 Date of next office visit: 07/18 Updated/Validated preferred pharmacy: Yes [employer] [facility] Patient instructed to contact the pharmacy [...] medication tab): 09/22/24 documented in this encounter [facility] 05-26-2025 Telephone encounter Note Form atting [...] recent labs completed in chart? N/A [facility] 05-26-2025 Miscellaneous Notes Formattin g of [...] in chart? N/A documented in this encounter [facility] 05-17-2025 Telephone encounter Note Form atting of this note might be different from the original. We have no availability before 07/18/25. [facility] 05-17-2025 Miscellaneous Notes Formattin g of this note might be different from the original. We have no availability before 07/18/25. Spoke with pharmacy went over med list and these are the med's she needs new scripts on. Rx loaded Name of caller: Mary Contact phone number: [phone] Relationship to Patient: Direction Home Provider: Elton Practice: [facility] Chief Complaint/Reason for Call: [facility] provider needs to call pharmacy [address] to verify medication list and and refill them for more then 2 weeks. Please advise Mary for further questions. Best time of day caller can be reached: any Patient advised that office/PCP has 24-48 business hours to return their call: Yes documented in this encounter [facility] 05-03-2025 Telephone encounter Note Form atting of this note might be different from the original. Spoke with pharmacy went over med list and these are the med's she needs new scripts on. Rx loaded [facility] 05-03-2025 Miscellaneous Notes Formattin g of this note might be different from the original. Spoke with pharmacy went over med list and these are the med's she needs new scripts on. Rx loaded Name of caller: Mary Contact phone number: [phone] Relationship to Patient: Direction Home Provider: Elton Practice: [facility] Chief Complaint/Reason for Call: [facility] provider needs to call pharmacy [address] to verify medication list and and refill them for more then 2 weeks. Please advise Mary for further questions. Best time of day caller can be reached: any Patient advised that office/PCP has 24-48 business hours to return their call: Yes documented in this encounter [facility] 05-03-2025 Telephone encounter Note Form atting of this note might be different from the original. Name of caller: Mary Contact phone number: [phone] Relationship to Patient: Direction [place] Provider: Elton Practice: [facility] Chief Complaint/Reason for Call: [facility] provider needs to call pharmacy [address] to verify medication list and and refill them for more then 2 weeks. Please advise Mary for further questions. Best time of day caller can be reached: any Patient advised that office/PCP has 24-48 business hours to return their call: Yes [facility] 05-03-2025 Telephone encounter Note Form atting of this note might be different from the original. Spoke with Kimberly and relayed message from provider. Patient will keep her appointment in June. [facility] 05-03-2025 Miscellaneous Notes Formattin g of [...] Medication Name: / documented in this encounter [facility] 05-02-2025 Telephone encounter Note Form atting of this note might be different from the original. KAYDEN full PCP does not have anything sooner. Schedule next available with PCP [facility] 05-02-2025 Telephone encounter Note Form atting of this note might be different from the original. See other TE [facility] 05-02-2025 Miscellaneous Notes Formattin g of this note might be different from the original. See other TE Name of caller: Kimberly Contact phone number: [phone] Relationship to Patient: Provider: Dr Conde Practice: [facility] Chief Complaint/Reason for Call: RAJ appt need to scheduled -no longer than 14 days from discharge Best time of day caller can be reached: Patient advised that office/PCP has 24-48 business hours to return their call: No documented in this encounter [facility] 05-02-2025 Telephone encounter Note Form atting of this note might be different from the original. Name of caller: Kimberly Contact phone number: [phone] Relationship to Patient: Provider: Dr Conde Practice: [facility] Chief Complaint/Reason for Call: RAJ appt need to scheduled -no longer than 14 days from discharge Best time of day caller can be reached: Patient advised that office/PCP has 24-48 business hours to return their call: No [facility] 04-29-2025 Telephone encounter Note Form atting [...] need, if any: / Medication Name: / [facility] 04-29-2025 Telephone encounter Note Form atting of this note might be different from the original. 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 Conde Practice: [place] [...] their call: No documented in this encounter [facility] 02-16-2025 Evaluation note Diagnosis Onset Date Resolution Lung nodule acute February 16, 025 9:09am Alzheimer's dementia chronic Alistair h 2024 9:09am COPD (chronic obstructive pulmonary disease) chronic February 16, 2025 9:09am Hypoxia chronic February 16 9:09am [facility] Work Phone: 1(799) 575-528503-26-2025 Evaluation note* Diagnosis Onset Date Resolution Status Admit Date Lung nodule acute February 16, 025 9:09am Alzheimer's dementia chronic Alistair h 2024 9:09am COPD (chronic obstructive pulmonary disease) chronic February 16 9:09am Hypoxia chronic February 16 9:09am Coronary artery disease acute A pril 2024 9:31am Dementia acute March 09 9:31am HLD (hyperlipidemia) acute Apri l 2024 9:31am Hypertension chronic March 09, 2025 9:31am [facility] Work Phone: 1(571) 303-499802-19-2025 [facility] Medical Records Department [address] [place] [address] Discharge Summary 01/12/25 1133 MR#: [id number] Acct: [id number] Name: FARZANA HERRON Rep #: [id number] : 1940 84 From: Tan Triplett MD PCP: Dr. Wayne Conde DO Status:DIS PETERSON [facility] Prov[facility] Date of Admission: 01/09/25 Date of [...] disposition. 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 Denied by 2 nursing [...] tablet 7.5 mg PO QHS 01/02/25 omega 4-xgt-qrb-fish oil 300 mg-1,000 mg capsule (Fish Oil) [...] Status: Flat affect Javier (more content not included)...[facility]02-11-2025 Note [facility] Medical Records Department [address] [place] [address] Discharge Summary 01/04/25 1538 MR#: [id number] Acct: [id number] Name: FRAZANA HERRON Rep #: [id number] : 1940 84 From: Priyank Bauer DO PCP: Dr. Wayne Conde, DO Status:DIS PETERSON [facility] Providers Date of Admission: 01/02/25 Date of [...] tablet 7.5 mg PO QHS 01/02/25 omega 2-xlr-frr-fish oil 300 mg-1,000 mg capsule (Fish Oil) [...] was seen in the emergency room at [facility] after sustaining a fall at home and injuring her left shoulder, x-rays in the emergency room showed the presence of the proximal left humerus fracture. Patient was placed in observation on [facility] 3 and seen by physical therapy, physical [...] awake, alert, oriented to (more content not included)...[facility]02-10-2025 Telephone encounter Note* Telephone Encounter - Jennifer Jensen MA - 01/03/2025 7:06 AM EST Rx loaded [id number] Miscellaneous Notes* Telephone Encounter - Jennifer Jensen [...] up the medication: Yes documented in this [facility]02-07-2025 Telephone encounter Note* Telephone Encounter - Sofia [...] prior to picking up the medication: Yes [id number] History of Present illness Narrative* Wayne Conde DO - 12/22/2024 1:30 PM EST Images from the original note were not included. [facility] - [address] [facility] [address] Visit type: Established Patient Reason for [...] Comprehensive metabolic panel Alzheimer's disease, unspecified (CODE) ([facility]) Comments: Stable on Aricept Chronic systolic (congestive) heart failure (HCC) Gastroesophageal reflux disease without esophagitis Chronic bronchitis, unspecified chronic bronchitis type (HCC) Comments: Stable on Spiriva Coronary artery disease involving sp[place]ane heart without angina pectoris, unspecified vessel or [...] tablet 1 ergocalciferol (Vitamin D2) 1.25 MG (14524 UT) capsule TAKE 1 CAPSULE BY MOUTH [...] of myocardial infarction Coronary artery disease involving sp[place] heart without angina pectoris COPD (chronic obstructive pulmonary disease) ([facility]) Lumbar degenerative disc disease Alzheimer's disease, unspecified (CODE) ([facility]) Chronic systolic (congestive) heart failure ([facility]) Irritable bowel syndrome Psoriasis Osteoporosis with pathological fracture Thoracic compression fracture ([facility]) Anxiety GERD (gastroesophageal reflux disease) OAB (overactive [...] with PACs no ischemia documented in this [facility]01-29-2025 History of Present illness Narrative* Wayne Conde, DO - 12/22/2024 1:30 PM EST Images from the original note were not included. [facility] - [address] [facility] [address] Visit type: Established Patient Reason for [...] Stable on Spiriva Coronary artery disease involving sp[place] heart without angina pectoris, unspecified vessel or [...] tablet 1 ergocalciferol (Vitamin D2) 1.25 MG (08820 UT) capsule TAKE 1 CAPSULE BY MOUTH [...] of myocardial infarction Coronary artery disease involving sp[place] heart without angina pectoris COPD (chronic obstructive pulmonary disease) ([facility]) Lumbar degenerative disc disease Alzheimer's disease, unspecified (CODE) ([facility]) Chronic systolic (congestive) heart failure ([facility]) Irritable bowel syndrome Psoriasis Osteoporosis with pathological fracture Thoracic compression fracture ([facility]) Anxiety GERD (gastroesophageal reflux disease) OAB (overactive [...] Bilateral 12/09 [facility] CHOLE[facility]ST[facility]OM[facility] 2002 COLONOSCOPY 10/2018 [facility]- neg- ? due COLONOSCOPY 08/2011 chronic diarrhea ([facility]) FOOT SURGERY HIATAL HERNIA REPAIR 10/2011 gastroplexy per Adonis ULNAR TUNNEL RELEASE Right 2003 UPPER GASTROINTESTINAL ENDOSCOPY 09/2011 GERD-uzair ulcer - s/p gastroplexy per Dr. Lamb 11/03 --neg CT abd 03/06 rech 10/07 ([facility]) UPPER GASTROINTESTINAL ENDOSCOPY 10/28/2016 [facility]- esoph stenosis and HH with reflux Family [...] with PACs no ischemia documented in this [facility]01-29-2025 Miscellaneous Notes* Addendum Note - Wayne Conde DO - 12/22/2024 1:30 PM ESTAddended by: WAYNE CONDE on: 12/26/2024 05:51 PM Modules accepted: Orders documented in this [facility]01-29-2025 Note* Addendum Note - Wayne Conde DO - 12/22/2024 1:30 PM ESTAddended by: WAYNE CONDE on: 12/26/2024 05:51 PM Modules accepted: Orders [id number] Telephone encounter Note* Telephone Encounter - Mellisa Santizo MA - 11/30/2024 3:19 PM EST Recent Visits Date Type Provider Dept 09/22/24 Office Visit Wayne Conde DO [facility] 05/26/24 Office Visit Wayne Conde DO [facility] 02/04/24 Office Visit Wayne Conde DO [facility] Showing recent visits within past 365 days and meeting all other requirements Future Appointments Date Type Provider Dept 12/22/24 Appointment Wayne Conde DO [facility] Showing future appointments within next [...] Most recent labs completed in chart? N/A [facility] [id number] Miscellaneous Notes* Telephone Encounter - Melilsa Santizo MA - 11/30/2024 3:19 PM EST Recent Visits Date Type Provider Dept 09/22/24 Office Visit Wayne [facility]de DO [facility] 05/26/24 Office Visit Wayne Conde DO [facility] 02/04/24 Office Visit Wayne Conde DO [facility] Showing recent visits within past 365 days and meeting all other requirements Future Appointments Date Type Provider Dept 12/22/24 Appointment Wayne Conde DO [facility] Showing future appointments within next [...] completed in chart? N/A documented in this [facility]10-31-2024 Telephone encounter Note* Telephone Encounter - Amalia [...] Disp Refills ergocalciferol (Vitamin D2) 1.25 MG (15555 UT) capsule [Pharmacy Med Name: Vitamin D (Ergocalciferol) 1.25 MG (37623 UT) Capsule] 5 capsule 11 Sig: TAKE [...] labs completed in chart? No None [facility] [id number] Miscellaneous Notes* Telephone Encounter - Amalia Fajardo MA - 09/23/2024 3:54 PM EDT Recent Visits Date Type Provider Dept 09/22/24 Office Visit Wayne Potter [place], DO [facility] 05/26/24 Office Visit Wayne Potter [place], DO [facility] 02/04/24 Office Visit Wayne Potter [place], DO [facility] 10/23/23 Office Visit Wayne Abbey Conde DO [facility] Showing recent visits within past 365 days and meeting all other requirements Future Appointments Date Type Provider Dept 12/22/24 Appointment Wayne Conde DO [facility] Showing future appointments within next 90 days and meeting all other requirements Requested Prescriptions Pending Prescriptions Disp Refills ergocalciferol (Vitamin D2) 1.25 MG (73027 UT) capsule [Pharmacy Med Name: Vitamin D (Ergocalciferol) 1.25 MG (61511 UT) Capsule] 5 capsule 11 Sig: TAKE [...] in chart? No None documented in this [facility]-30-2024 History of Present illness Narrative* Wayne Conde DO - 09/22/2024 2:00 PM EDT Images from the original note were not included. [facility] [address] [facility] [phone] Visit type: Established Patient Reason for [...] Stable, continue Aricept Coronary artery disease involving sp[place] heart without angina pectoris, unspecified vessel or [...] (BEFORE BREAKFAST) ergocalciferol (Vitamin D2) 1.25 MG (70934 UT) capsule TAKE 1 CAPSULE BY MOUTH [...] of myocardial infarction Coronary artery disease involving [place] heart without angina pectoris COPD (chronic obstructive pulmonary disease) ([facility]) Lumbar degenerative disc disease Alzheimer's disease, unspecified (CODE) ([facility]) Chronic systolic (congestive) heart failure ([facility]) Irritable bowel syndrome Psoriasis Osteoporosis with pathological fracture Thoracic compression fracture ([facility]) Anxiety GERD (gastroesophageal reflux disease) OAB (overactive [...] 11/03 --neg CT abd 03/06 rech 10/07 ([facility]) UPPER GASTROINTESTINAL ENDOSCOPY 10/28/2016 [facility] [...] and using her cane documented in this [facility]10-30-2024 Instructions* Patient Instructions* Wayne Conde DO - 09/22/2024 2:00 PM EDT Obtain RSV and COVID vaccines at your pharmacy documented in this [facility]10-03-2024 Telephone encounter Note* Telephone Encounter - Fanny Lua LPN - 08/26/2024 9:30 AM EDT RX loaded Next ov 09/22/24 [id number] Miscellaneous Notes* Telephone Encounter - Fanny Lua LPN - 08/26/2024 9:30 AM EDT RX loaded Next ov 09/22/24 * Telephone Encounter - Olamide Eaton - 08/26/2024 9:14 AM EDT Medication name: Spiriva HandiHaler 18 MCG inhalation capsule (Discontinued) Please send to [facility] rx/in pharmacy list Medication dosage: 18 mcg [...] up the medication: Yes documented in this [facility]10-03-2024 Telephone encounter Note* Telephone Encounter - Olamide Eaton - 08/26/2024 9:14 AM EDT Medication name: Spiriva HandiHaler 18 MCG inhalation capsule (Discontinued) Please send to [facility] rx/in pharmacy list Medication dosage: 18 mcg [...] prior to picking up the medication: Yes [facility] [id number] Telephone encounter Note* Telephone Encounter - Annette Villeda MA - 07/28/2024 10:48 AM EDT Recent Visits Date Type Provider Dept 05/26/24 Office Visit Wayne Conde DO [facility] 02/04/24 Office Visit Wayne Conde DO [facility] 10/23/23 Office Visit Wayne Conde DO [facility] Showing recent visits within past 365 days and meeting all other requirements Future Appointments Date Type Provider Dept 09/22/24 Appointment Wayne Conde DO [facility] Showing future appointments within next 90 [...] for: CHOLESTEROLT, HDLCHOLESTER, TRIGLYCERIDE, LDLCHOLESTER, CHOLHDLCRATI, NONHDLCHOLES [facility] [id number] Miscellaneous Notes* Telephone Encounter - Annette Villeda MA - 07/28/2024 10:48 AM EDT Recent Visits Date Type Provider Dept 05/26/24 Office Visit Wayne Conde, DO [facility] 02/04/24 Office Visit Wayne Conde DO [facility] 10/23/23 Office Visit Wayne Conde DO [facility] Showing recent visits within past 365 days and meeting all other requirements Future Appointments Date Type Provider Dept 09/22/24 Appointment Wayne Conde DO [facility] Showing future appointments within next 90 [...] TRIGLYCERIDE, LDLCHOLESTER, CHOLHDLCRATI, NONHDLCHOLES documented in this [facility]08-19-2024 Miscellaneous Notes* Telephone Encounter - Fanny Lua [...] up the medication: Yes documented in this [facility]08-19-2024 Telephone encounter Note* Telephone Encounter - Fanny Lua LPN - 07/12/2024 11:17 AM EDT RX loaded Next ov 09/22/24 [place] [id number] Telephone encounter Note* Telephone Encounter - Lavinia [...] prior to picking up the medication: Yes [facility] [id number] History of Present illness Narrative* Wayne Potter El[place], DO - 05/26/2024 3:30 PM EDT Images from the original note were not included. [facility] [address] [place] [address] [address] [facility] [phone] Visit type: Established Patient Reason for Visit: Follow-up (Med check) and Fall (Hit head has a bump on back of head has no idea what happened blacked out. ) Assessment / Plan: Farzana was seen today for follow-up and fall. Diagnoses and all orders for this visit: Coronary artery disease involving sp[place] heart without angina pectoris, unspecified vessel or [...] (BEFORE BREAKFAST) ergocalciferol (Vitamin D2) 1.25 MG (66407 UT) capsule TAKE 1 CAPSULE BY MOUTH [...] of myocardial infarction Coronary artery disease involving [place] heart without angina pectoris COPD (chronic obstructive pulmonary disease) ([facility]) Lumbar degenerative disc disease Alzheimer's disease, unspecified (CODE) ([facility]) Chronic systolic (congestive) heart failure ([facility]) Irritable bowel syndrome Psoriasis Osteoporosis with pathological fracture Thoracic compression fracture ([facility]) Anxiety GERD (gastroesophageal reflux disease) OAB (overactive [...] Bilateral 12/09 [facility] CHOLE[facility] 2002 COLONOSCOPY 10/2018 [facility]- neg- ? due COLONOSCOPY 08/2011 chronic diarrhea ([facility]) FOOT SURGERY HIATAL HERNIA REPAIR 10/2011 gastroplexy per Adonis ULNAR TUNNEL RELEASE Right 2002 UPPER GASTROINTESTINAL ENDOSCOPY 09/2011 GERD-uzair ulcer - s/p gastroplexy per Dr. Lamb 11/03 --neg CT abd 03/06 rech 10/07 ([facility]) UPPER GASTROINTESTINAL ENDOSCOPY 10/28/2016 [facility]- esoph stenosis and HH with reflux Family [...] gait was not assessed documented [id number] Telephone encounter Note* Telephone Encounter - Mellisa Santizo MA - 05/20/2024 7:31 AM EDT Pt is scheduled [facility] [id number] Miscellaneous Notes* Telephone Encounter - Mellisa Santizo [...] Provider Dept 05/26/24 Appointment Wayne Conde DO [facility] Showing future appointments within next 90 [...] 01/21/2024 CREATININE 0.96 01/21/2024 documented in this [facility]06-26-2024 Telephone encounter Note* Telephone Encounter - Mellisa Santizo MA - 05/19/2024 11:42 AM EDT Recent Visits Date Type Provider Dept 02/04/24 Office Visit Wayne Conde DO [facility] 10/23/23 Office Visit Wayne Conde DO [facility] 07/17/23 Office Visit DO [facility] [place] [facility] Showing recent visits within past 365 days and meeting all other requirements Future Appointments Date Type Provider Dept 05/26/24 Appointment Wayne Conde DO [facility] Showing future appointments within next 90 [...] BUN 25 (H) 01/21/2024 CREATININE 0.96 01/21/2024 [facility] [id number] Miscellaneous Notes* Telephone Encounter - Mellisa Santizo MA - 05/19/2024 11:42 AM EDT Recent Visits Date Type Provider Dept 02/04/24 Office Visit Wayne Conde DO [facility] 10/23/23 Office Visit Wayne Conde DO [facility] 07/17/23 Office Visit Wayne Conde DO [facility] Showing recent visits within past 365 days and meeting all other requirements Future Appointments Date Type Provider Dept 05/26/24 Appointment Wayne Conde DO [facility] Breonna Showing future appointments within next 90 [...] 01/21/2024 CREATININE 0.96 01/21/2024 documented in this [facility]03-27-2024 Telephone encounter Note* Telephone Encounter - Natty Noriega MA - 02/18/2024 2:52 PM EDT Rx loaded [place] [id number] Miscellaneous Notes* Telephone Encounter - Natty Noriega MA - 02/18/2024 2:52 PM EDT Rx loaded documented in this [place] [id number] Telephone encounter Note* Telephone Encounter - Annette Villeda MA - 02/05/2024 11:[address] Conde - please sign referral pended for your approval [address]Mmzufs18-08-7522 Miscellaneous Notes* Telephone Encounter - Annette Villeda [...] training for gait disturbance, documented in this encounterSSt. Vincent HospitalLhxkgi19-64-5591 Telephone encounter Note* Telephone Encounter - Rashida Hunte - 02/05/2024 7:00 AM EDT Please assist. [facility] CenterQjrqfo70-42-8677 Telephone encounter Note* Telephone Encounter - Rashida Hunte - 02/05/2024 7:00 AM EDT ----- Message from Amara Sullivan MA sent at 02/04/2024 4:21 PM EDT ----- ----- Message ----- From: Wayne Conde DO Sent: 02/04/2024 3:16 PM EDT To: Amara Sullivan MA Set up referral for home nursing assesment for pt and education for rx, PT training for gait disturbance, [facility] CenterXzcyai87-32-6785 History of Present illness Narrative* Wayne Potter DO [place] - 02/04/2024 2:30 PM EDT Images from the original note were not included. [facility] [address] [facility] [address] [facility] [address] Visit type: Established Patient Reason for [...] Stable, continue gabapentin Coronary artery disease involving [place]okane heart without angina pectoris, unspecified vessel or [...] tablet 0 ergocalciferol (Vitamin D2) 1.25 MG (07493 UT) capsule TAKE 1 CAPSULE BY MOUTH [...] of myocardial infarction Coronary artery disease involving [place] heart without angina pectoris COPD (chronic obstructive pulmonary disease) ([facility]) Lumbar degenerative disc disease Alzheimer's disease, unspecified (CODE) ([facility]) Chronic systolic (congestive) heart failure ([facility]) Irritable bowel syndrome Psoriasis Osteoporosis with pathological fracture Thoracic compression fracture ([facility]) Anxiety GERD (gastroesophageal reflux disease) OAB (overactive [...] table. Using a cane. documented in this [facility]03-01-2024 Telephone encounter Note* Telephone Encounter - Mellisa Santizo MA - 01/23/2024 11:56 AM EST Order pended. [facility] [id number] Miscellaneous Notes* Telephone Encounter - Mellisa Santizo MA - 01/23/2024 11:56 AM EST Order pended. * Telephone Encounter - Itzel Correia - 01/23/2024 11:24 AM EST Name of caller: Jing Contact phone number: [phone] Relationship to Patient: [facility] Aide Provider: Dr Conde Practice: [facility] [place] Chief Complaint/Reason for Call: Caller stated that patient has been falling a lot due to cane not being stable enough and would like to get order for rollator. Caller stated that Itzel Rich the [facility] Home Charter Driver would be the contact officer who will help getting this paid for. Caller stated with any questions please call Itzel [phone] or patients Sameer [phone]. Please advise. Thank you. Best time of day caller can be reached: Any Patient advised that office/PCP has 24-48 business hours to return their call: No documented in this encounterSSt. Vincent HospitalWcdnpc59-49-7044 Telephone encounter Note* Telephone Encounter - Itzel Correia - 01/23/2024 11:24 AM EST Name of caller: Jing Contact phone number: [phone] Relationship to Patient: [facility] Aide Provider: Dr Conde Practice: [place] Chief Complaint/Reason for Call: Caller stated that patient has been falling a lot due to cane not being stable enough and would like to get order for rollator. Caller stated that Itzel Rich the [facility] Home Charter Driver would be the contact officer who will help getting this paid for. Caller stated with any questions please call Itzel [phone] or patients Sameer [phone]. Please advise. Thank you. Best time of day caller can be reached: Any Patient advised that office/PCP has 24-48 business hours to return their call: No [facility] CenterNezsqi34-64-0665 Nurse Note* Nikki Calvillo LPN - 01/21/2024 2:34 PM EST Discharge Instructions given to . Instructions went over several times due to is hard of hearing. [facility] CenterLptvxu81-34-7076 Nurse Note* Nikki Calvillo LPN - 01/21/2024 2:34 PM EST Discharge Instructions given to . Instructions went over several times due to is hard of hearing. documented in this [facility]02-28-2024 Note* Care Coordination - Yessica Kaiser RN - 01/21/2024 2:30 PM EST Images from the original note were not included. Care Management Progress Note DC orders in and signed by Louann SKAGGS. to transport home. Declined [facility]. DC home independently in stable condition. [...] Length of Stay (Days): 5 GMLOS: 2.4 [facility] CenterQewgmj38-08-8347 Note* Care Coordination - Yessica Kaiser RN - 01/21/2024 2:30 PM EST Images from the original note were not included. Care Management Progress Note DC orders in and signed by Louann SKAGGS. to transport home. Declined [facility]. DC home independently in stable condition. [...] Length of Stay (Days): 5 GMLOS: 2.4 [facility] CenterYctwvg90-65-3711 Miscellaneous Notes* Care Coordination - Yessica Kaiser [...] Cons, Discharge plan: Home vs home with [facility] Discharge obstacles: Awaiting clinical stability TCC [...] Erickson RN - 01/19/2024 4:20 PM EST Cotton Bag Sewer following case for Discharge Needs. * Care [...] Clinical updates: Patient is very confused, per PHARMACY TECHNOLOGIST note, patient pulled out her IV and [...] Discharge Barriers: establish contact with a patient field representatives director to complete IA; form safe discharge plan; clinical stability Chart reviewed. Stopped by patient room to see if there were any visitors at the bedside. Patient alone and sleeping soundly. Attempted to phone patient's home number ([phone]) in hopes of getting in touch with spouse, Sameer, but rang with no answer. Phoned patient's sister, Inez Bowman, [phone]. Left HIPAA compliant message requesting call back. [...] Sameer, at home number listed for patient ([phone]) - no number available for spouse despite being listed under emergency contacts. Phone rang with no answer and no VMpicked up. Called patient's sister, Inez Bowman, at [phone]. Left HIPAA compliant message requesting call back. [...] nodule clinic at discharge. documented in this [facility]02-28-2024 Note* Home Care - Juju Erickson RN - 01/21/2024 1:06 PM EST Pt/spouse declined home care services. PACC signing off. [facility] CenterZgqzxu80-62-5311 Note* Home Care - Juju Erickson RN - 01/21/2024 1:06 PM EST Pt/spouse declined home care services. PACC signing off. [facility] CenterCbqiip09-80-3599 Hospital Discharge instructions* Discharge Instr - LOLA* [...] Contact Information Primary Emergency Contact: Inez Bowman [place] Relation: Sibling Secondary Emergency Contact: GermaineSameer Relation: Spouse Past Surgical History: Past Surgical History: Procedure Laterality Date BALLOON ANGIOPLASTY, ARTERY 06/[address] Martinez CARPAL TUNNEL RELEASE Bilateral 1987 CATARACT EXTRACTION Bilateral 12/09 [facility] CHOLECYSTECTOMY 2002 COLONOSCOPY 10/2018 med- neg- ? due COLONOSCOPY 08/2011 chronic diarrhea ([facility]) FOOT SURGERY HIATAL HERNIA REPAIR 10/2011 gastroplexy per Adonis ULNAR TUNNEL RELEASE Right 2002 UPPER GASTROINTESTINAL ENDOSCOPY 09/2011 GERD-uzair ulcer - s/p gastroplexy per Dr. Lamb 11/03 --neg CT abd 03/06 rech 10/07 ([facility]) UPPER GASTROINTESTINAL ENDOSCOPY 10/28/2016 [facility]- esoph stenosis and HH with reflux Immunization [...] of myocardial infarction Coronary artery disease involving [place] heart without angina pectoris COPD (chronic obstructive pulmonary disease) ([facility]) Overview Signed 09/08/2022 10:57 AM by Interface, Incoming Problems- [facility] Conversion ex smoker since 1994 Lumbar degenerative disc disease Alzheimer's disease, unspecified (CODE) ([facility]) Irritable bowel syndrome Psoriasis Osteoporosis with pathological fracture Overview Signed 09/08/2022 10:57 AM by Interface, Incoming Problems- [facility] Conversion per BD 07/2012 - MRI thoracic spine DDD 10/07 prolia injections Thoracic compression fracture ([facility]) Overview Signed 09/08/2022 10:57 AM by Interface, [...] 0.8 oz) Mental Status: {LOLA Patient Mental Status:61794} IV Access: {LOLA IV Access:41598} Nursing Mobility/ADLs: Walking {REEMA ADL:::Independent} Transfer {REEMA ADL:::Independent} Bathing {REEMA ADL:::Independent} Dressing {REEMA ADL:::Independent} Toileting {REEMA ADL:::Independent} Feeding {REEMA ADL:::Independent} Vegetable Farm Manager {REEMA ADL:::Independent} Med Delivery {yes/no:62997} Wound Care Documentation and Therapy: Elimination: Continence: Bowel: {yes/no:22805} Bladder: {yes/no:82732} Urinary Catheter: {LOLA Urinary Catheter:44551} Colostomy/Ileostomy/Ileal Conduit: {YES / NO:} Date of Last BM: No intake or output data in the 24 hours ending 01/21/24 1302 I/O last 3 completed shifts: In: 240 (4.4 mL/kg) [P.O.:240] Out: - (0 mL/kg) Weight: 54 kg Safety Concerns: {LOLA Safety Concerns:60911} Impairments/Disabilities: {LOLA Impairments/Disabilities:67812} Nutrition Therapy: Current Nutrition Therapy: {LOLA Diet List:09727} Routes of Feeding: {routes of feedin} Liquids: {liquid consistency:29157} Daily Fluid Restriction: {daily fluid restriction:41900} Last Modified Barium Swallow with Video (Video Swallowing Test): {done not done:12789} Treatments at the Time of Hospital Discharge: Respiratory Treatments: Oxygen Therapy: {Therapy; copd oxygen:14055} Ventilator: {LOLA Ventilator:06141} Rehab Therapies: {GEN THERAPY DISCIPLINE SCAL:1580987} Weight Bearing Status/Restrictions: {POD WEIGHT BEARIN} Other Medical Equipment (for information only, NOT a DME order): {Assistive Devices DME:71903} Other Treatments: Patient's personal belongings (please select all that are sent with patient): {LOLA Patient Belongings:78475} RN SIGNATURE: {E-signature:91591} CASE MANAGEMENT/SOCIAL WORK SECTION Inpatient Status Date: Readmission Risk Assessment Score: @READMISSIONRISKDETAILS@ Discharging to Facility/ Agency Name: Address: Phone: Fax: Dialysis Facility (if applicable) Name: Address: Dialysis Schedule: Phone: Fax: Chiller Technician/Chlorinator Operator signature: {E-signature:15833} PHYSICIAN SECTION Prognosis: {Rehab Prognosis:16569} Condition at Discharge: {Patient Condition:47749} Rehab Potential (if transferring to Rehab): {Rehab Prognosis:71414} Recommended Labs or Other Treatments After Discharge: Physician Certification: I certify the above information and transfer of Farzana Herron is necessary for the continuing treatment of the diagnosis listed and that she requires {LOLA Level of Care:68868} for {greater less than:29366} 30 days. Update Admission H&P: {LOLA Changes in H&P:98708} PHYSICIAN SIGNATURE: {E-signature:53414} documented in this [facility]02-28-2024 Hospital course Narrative* Louann Saleem APRN - [facility] - 01/21/2024 10:03 AM EST Images from [...] antiemetics. Consider GI consult. I&O, daily wts, gl accountant consult, tolerating diet , KUB shows resolved [...] History: Diagnosis Date Alzheimer's disease, unspecified (CODE) ([facility]) 01/2021 Anxiety CAD (coronary artery disease) 06/2016 Dr. Martinez- NE-hypokinetic RV- RCA ballon angioplasty- EF 48% 08/10- Dr Gianna Garrett ulcer 2011 Carotid artery disease without cerebral infarction ([facility]) 09/2015 angiogram with <70 % stenosis Left ICA- defers repeat studies Collagenous colitis [address] Teague COPD (chronic obstructive pulmonary disease) ([facility]) 04/2017 ex smoker since 1994--CT also 12/11 Essential hypertension 09/26/2021 GERD (gastroesophageal reflux disease) 2010 [facility]-EGD 10/07 and 11/08 H/O colonoscopy 10/2018 [facility]- divert ds- no changes, ? repeat [...] mg) by mouth Nightly. ergocalciferol 1.25 MG (24750 UT) capsule Commonly known as: Vitamin D2 [...] Your Medications These medications were sent to [facility]/pharmacy #[id number] [address] atorvastatin 80 MG tablet cyanocobalamin 1000 MCG tablet losartan 25 MG tablet metoprolol tartrate 50 MG tablet polyethylene glycol (PEG) 3350 17 GM/SCOOP powder Recommended Follow-up: [facility] Geriatrics [address] [facility] [address] Complexity of Follow up: [x] Moderate Complexity: follow up within 7-14 calendar days (03056) [] Severe Complexity: follow up within 7 calendar days (58060) Follow up Testing, Pending results or Referrals [...] time frame. Signed: LOUANN SALEEM APRN - PHARMACY TECHNOLOGIST Division of Hospitalist Medicine [facility] 01/21/2024, 2:31 PM documented in this [facility]02-28-2024 Note* Care Coordination - Yessica Kaiser RN - 01/21/2024 8:04 AM EST Images from the original note were not included. Care Management Progress Note Patient remains on 4S for syncope and collapse Clinical updates: Patient and do not want any follow up on lung nodule. Nausea resolved, advancing diet. Possible ileus noted, awaiting decision for GI Cons, Discharge plan: Home vs home with [facility] Discharge obstacles: Awaiting clinical stability TCC [...] Length of Stay (Days): 5 GMLOS: 2.4 [facility]02-28-2024 Note* Care Coordination - Yessica Kaiser RN - 01/21/2024 8:04 AM EST Images from the original note were not included. Care Management Progress Note Patient remains on 4S for syncope and collapse Clinical updates: Patient and do not want any follow up on lung nodule. Nausea resolved, advancing diet. Possible ileus noted, awaiting decision for GI Cons, Discharge plan: Home vs home with [facility] Discharge obstacles: Awaiting clinical stability TCC [...] Length of Stay (Days): 5 GMLOS: 2.4 [facility]02-27-2024 Note* Care Coordination - Cherelle Larson RCP - 01/20/2024 4:15 PM EST Navigator reviewed inpatient consult from pulmonary providers. Patient and continue to decline lung nodule follow-up. They are aware this could be a potential malignancy, but given patient's age and overall health, they do not wish to pursue follow-up. Navigators to sign off. [facility] CenterUjselv29-63-2546 Note* Care Coordination - Cherelle Larson RCP - 01/20/2024 4:15 PM EST Navigator reviewed inpatient consult from pulmonary providers. Patient and continue to decline lung nodule follow-up. They are aware this could be a potential malignancy, but given patient's age and overall health, they do not wish to pursue follow-up. Navigators to sign off. [facility] CenterHyfnfc80-42-2766 History of Present illness Narrative* Bernice Robledo, PT - 01/20/2024 3:06 PM EST Images from the original note were not included. PHYSICAL THERAPY [facility] Initial Evaluation Name/MRN: Farzana Herron ([id number]) Evaluation Date: 01/20/2024 Date of : 1940 Admission Date: 01/16/2024 8:17 AM Age: 83 y.o. Room/Bed: [facility] A Discharge Recommendation: 24 hour supervision or [...] for transfers and Kenisha for ambulation with ROUSTABOUT HAND. Pt would benefit from use of FWW for balance, however is adamantly declining. Pt should benefit from skilled PT to increase functional independence and safety. Rec [facility] PT and 24hr sup. Prognosis: good Performance Deficits /Impairments: Decreased Functional Mobility, Decreased Strength, Decreased Safety Awareness, Decreased Cognition, Decreased Endurance, Decreased Balance, and Decreased Posture Decision Making: Medium Complexity Subjective Pt lying in bed and agreeable to therapy. Friend at bedside. Pain: Pt denies any current pain. Past Medical History: Past Medical History: Diagnosis Date Alzheimer's disease, unspecified (CODE) ([facility]) 01/2021 Anxiety CAD (coronary artery disease) 06/2016 Dr. Martinez- NE-hypokinetic RV- RCA ballon angioplasty- EF 48% 08/10- Dr Gianna Garrett ulcer 2010 Carotid artery disease without cerebral infarction ([facility]) 09/2015 angiogram with <70 % stenosis Left ICA- defers repeat studies Collagenous colitis [address] Teague COPD (chronic obstructive pulmonary disease) ([facility]) 04/2017 ex smoker since 1994--CT also 12/11 Essential hypertension 09/26/2021 GERD (gastroesophageal reflux disease) 2010 [facility]-EGD 10/07 and 11/08 H/O colonoscopy 10/2018 [facility]- divert ds- no changes, ? repeat [...] Other specified glaucoma Psoriasis Thoracic compression fracture ([facility]) 1960 horse riding accident- DDD Past Surgical History: Past Surgical History: Procedure Laterality Date BALLOON ANGIOPLASTY, ARTERY 06/[address] Martinez CARPAL TUNNEL RELEASE Bilateral 1987 CATARACT EXTRACTION Bilateral 12/09 [facility] CHOLECYSTECTOMY 2001 COLONOSCOPY 10/2018 [facility]- neg- ? due COLONOSCOPY 08/2011 chronic diarrhea ([facility]) FOOT SURGERY HIATAL HERNIA REPAIR 10/2011 gastroplexy per Adonis ULNAR TUNNEL RELEASE Right 2003 UPPER GASTROINTESTINAL ENDOSCOPY 09/2011 GERD-uzair ulcer - s/p gastroplexy per Dr. Lamb 11/03 --neg CT abd 03/06 rech 10/07 ([facility]) UPPER GASTROINTESTINAL ENDOSCOPY 10/28/2016 [facility]- esoph stenosis and HH with reflux Admission Diagnosis: Patient Active Problem List Diagnosis Date Noted Syncope and collapse 01/16/2024 Chronic systolic (congestive) heart failure ([facility]) 04/15/2022 Essential hypertension 09/26/2021 Renal insufficiency 09/26/2021 Alzheimer's disease, unspecified (CODE) ([facility]) 06/25/2021 LV dysfunction 11/20/2017 Hypercholesterolemia 11/20/2017 Uzair ulcer 08/25/2017 Lumbar degenerative disc disease 05/01/2017 History of DVT of lower extremity 04/02/2017 History of hypertension 04/02/2017 Hypothyroid 04/02/2017 H/O: UGI bleed 08/19/2016 History of myocardial infarction 08/19/2016 Coronary artery disease involving [place] heart without angina pectoris 08/19/2016 COPD (chronic obstructive pulmonary disease) ([facility]) 02/07/2016 Irritable bowel syndrome 06/08/2015 Psoriasis 06/08/2015 Osteoporosis with pathological fracture 06/08/2015 Thoracic compression fracture ([facility]) 06/08/2015 Anxiety 06/08/2015 GERD (gastroesophageal reflux disease) [...] Responsibilities: Independent Receives Help From: Spouse Active Development Lead: N/A Prior Level of Function ADL Assistance: [...] steps and demos general unsteadiness. Pt requires ROUSTABOUT HAND for balance and demosuse of handrail/furniture to [...] of Care supervision is transferred to a [facility] Services Physical Therapist. Goals and/or treatment plan was established in collaboration with patient/family/other representatives. * Zunilda Diamond APRN - PHARMACY TECHNOLOGIST - 01/20/2024 10:42 AM EST [facility] Geriatric Medicine Inpatient Consult Service [...] and consider treating for pain --QTc= 433 --[place] PRN Seroquel and Haldol for ONLY if [...] Aricept 5mg daily -recommend follow up at [facility] for more in depth cognitive testing when [...] mg, 200 mg, Oral, BID, Zunilda Ezlaurae, MANAGER BUSINESS - PHARMACY TECHNOLOGIST, 200 mg at 01/20/24 0820 haloperidol (Haldol) tablet 0.5 mg, 0.5 mg, Oral, q6h PRN, Zunilda Diamond MANAGER BUSINESS - PHARMACY TECHNOLOGIST isosorbide mononitrate ER (Imdur) 24 hr tablet [...] mg, Oral, Nightly, Zunilda Diamond APRN - PHARMACY TECHNOLOGIST, 3 mg at 01/19/242123 metoprolol tartrate (Lopressor) [...] 12.5 mg, Oral, BID PRN, Zunilda Hannone, MANAGER BUSINESS - TONIE tiotropium (Spiriva Respimat) 2.5 MCG/ACT inhaler 2 [...] 1.283 01/17/2024 Lab Results Component Value Date [id number] 01/19/2024 Lab Results Component Value Date [id number] 01/20/2024 Reviewed: allergies, previous encounters, imaging, active problem lists, medications, and labs * Lamar Rhoades OT - 01/20/2024 10:32 AM EST Images from the original note were not included. OCCUPATIONAL THERAPY [facility] Initial Evaluation Name/MRN: Farzana Herron ([id number]) Evaluation Date: 01/20/2024 Date of : 1940 Admission Date: 01/16/2024 8:17 AM Age: 83 y.o. Room/Bed: [facility] A Discharge Recommendation: Continue to assess pending progress, [facility] Facility Equipment Needed: No (TBD at next [...] History: Diagnosis Date Alzheimer's disease, unspecified (CODE) ([facility]) 01/2021 Anxiety CAD (coronary artery disease) 06/2016 Dr. Martinez- NE-hypokinetic RV- RCA ballon angioplasty- EF 48% 08/10- Dr Gianna Garrett ulcer 2011 Carotid artery disease without cerebral infarction ([facility]) 09/2015 angiogram with <70 % stenosis Left ICA- defers repeat studies Collagenous colitis [address] Teague COPD (chronic obstructive pulmonary disease) ([facility]) 04/2017 ex smoker since 1994--CT also 12/11 [...] neg- ? due COLONOSCOPY 08/2011 chronic diarrhea ([facility]) FOOT SURGERY HIATAL HERNIA REPAIR 10/2011 gastroplexy per Adonis ULNAR TUNNEL RELEASE Right 2003 UPPER GASTROINTESTINAL ENDOSCOPY 09/2011 GERD-uzair ulcer - s/p gastroplexy per Dr. Lamb 11/03 --neg CT abd 03/06 rech 10/07 ([facility]) UPPER GASTROINTESTINAL ENDOSCOPY 10/28/2016 [facility]- esoph stenosis and HH with reflux Admission [...] myocardial infarction 08/19/2016 Coronary artery disease involving [place] heart without angina pectoris 08/19/2016 COPD (chronic obstructive pulmonary disease) ([facility]) 02/07/2016 Irritable bowel syndrome 06/08/2015 Psoriasis 06/08/2015 Osteoporosis with pathological fracture 06/08/2015 Thoracic compression fracture ([facility]) 06/08/2015 Anxiety 06/08/2015 GERD (gastroesophageal reflux disease) [...] Responsibilities: Independent Receives Help From: Spouse Active Development Lead: N/A Prior Level of Function ADL Assistance: [...] of Care supervision is transferred to a [facility] Therapy Services Occupational Therapist. Goals and/or treatment plan was established in collaboration with patient/family/other representatives. * Juanita Whittington MD - 01/20/2024 10:12 AM EST Images from the original note were not included. [facility], Pulmonary Medicine [address] [place] [address] Patient - Farzana Herron, Age - 83 [...] TEST COMMUNICATION: Dr. Wasserman was notified via [employer] Secure Chat today at 10:[address] chest was reviewed and interpreted by me as noted above in history of present illness Active Hospital Problem List Patient Active Problem List Diagnosis Essential hypertension H/O: UGI bleed History of DVT of lower extremity History of hypertension History of myocardial infarction Coronary artery disease involving [place] heart without angina pectoris COPD (chronic obstructive [...] this time No PFT available currently on [facility] Will resume Spiriva / Flovent and [...] provider directly. * Louann Saleem APRN - PHARMACY TECHNOLOGIST - 01/20/2024 9:55 AM EST Images from the original note were not included. Hospitalist Progress Note 01/20/2024 Subjective: Admit Date: 01/16/2024 PCP: Wayne Conde DO Room#: [id number] A Brief Hospital course: 83-year-old female who [...] History: Diagnosis Date Alzheimer's disease, unspecified (CODE) ([facility]) 01/2021 Anxiety CAD (coronary artery disease) 06/2016 Dr. Martinez- NE-hypokinetic RV- RCA ballon angioplasty- EF 48% 08/10- Dr Gianna Garrett ulcer 2011 Carotid artery disease without cerebral infarction ([facility]) 09/2015 angiogram with <70 % stenosis Left ICA- defers repeat studies Collagenous colitis [address] Teague COPD (chronic obstructive pulmonary disease) ([facility]) 04/2017 ex smoker since 1994--CT also 12/11 [...] Other specified glaucoma Psoriasis Thoracic compression fracture ([facility]) 1959 horse riding accident- DDD LABS: CBC: [...] antiemetics. Consider GI consult. I&O, daily wts, gl accountant consult, tolerating diet Sliding hiatal hernia: May [...] ANGELLA MELO CNP Division of Hospitalist Medicine [facility] * Kannan Beavers RN - 01/19/2024 3:00 PM EST Video monitoring removed from patients room. Bed alarm is on. * Letha Salinas PT - 01/19/2024 1:35 PM EST Images from the original note were not included. PHYSICAL THERAPY [facility] Name/MRN: Farzana Herron ([id number]) Date: 01/19/2024 PT orders received. Chart reviewed. [...] Date: 01/16/2024 PCP: Wayne Conde DO Room#: [id number]/[id number] A Brief Hospital course: 83-year-old female who [...] History: Diagnosis Date Alzheimer's disease, unspecified (CODE) ([facility]) 01/2021 Anxiety CAD (coronary artery disease) 06/2016 Dr. Martinez- NE-hypokinetic RV- RCA ballon angioplasty- EF 48% 08/10- Dr Gianna Garrett ulcer 2011 Carotid artery disease without cerebral infarction ([facility]) 09/2015 angiogram with <70 % stenosis Left ICA- defers repeat studies Collagenous colitis [address] Teague COPD (chronic obstructive pulmonary disease) ([facility]) 04/2017 ex smoker since 1994--CT also 12/11 Essential hypertension 09/26/2021 GERD (gastroesophageal reflux disease) 2010 [facility]-EGD 10/07 and 11/08 H/O colonoscopy 10/2018 [facility]- divert ds- no changes, ? repeat [...] antiemetics. Consider GI consult. I&O, daily wts, gl accountant consult Sliding hiatal hernia: May influencing nausea [...] Contact Information Primary Emergency Contact: Inez Bowman [place] Relation: Sibling Secondary Emergency Contact: Sameer Herron Relation: Spouse ADRIEN CURRY APRN - PHARMACY TECHNOLOGIST Division of Hospitalist Medicine Acute care [facility] Comment: Please note this report has been [...] History: Diagnosis Date Alzheimer's disease, unspecified (CODE) ([facility]) 01/2021 Anxiety CAD (coronary artery disease) 06/2016 Dr. Martinez- NE-hypokinetic RV- RCA ballon angioplasty- EF 48% 08/10- Dr Gianna Garrett ulcer 2011 Carotid artery disease without cerebral infarction ([facility]) 09/2015 angiogram with <70 % stenosis Left ICA- defers repeat studies Collagenous colitis [address] Teague COPD (chronic obstructive pulmonary disease) ([facility]) 04/2017 ex smoker since 1994--CT also 12/11 [...] Other specified glaucoma Psoriasis Thoracic compression fracture ([facility]) 1960 horse riding accident- DDD LABS: CBC: [...] ANGELLA RAMIREZ CNP Division of Hospitalist Medicine [facility] Comment: Please note this report has been produced using speech recognition software and may contain errors related to that system including errors in grammar, punctuation, and spelling, as well as words and phrases that may be inappropriate. If there is any questions or concerns please feel free to contact the dictating provider for clarification * Geo Vee MD - 01/17/2024 8:42 PM EST [facility] Geriatric Medicine Inpatient Consult Service Admission Date: [...] Date: 01/16/2024 PCP: Wayne Conde DO Room#: T7-600/[id number] A Brief Hospital course: 83-year-old female who [...] History: Diagnosis Date Alzheimer's disease, unspecified (CODE) ([facility]) 01/2021 Anxiety CAD (coronary artery disease) 06/2016 Dr. Martinez- NE-hypokinetic RV- RCA ballon angioplasty- EF 48% 08/10- Dr Gianna Garrett ulcer 2011 Carotid artery disease without cerebral infarction ([facility]) 09/2015 angiogram with <70 % stenosis Left ICA- defers repeat studies Collagenous colitis [address] Teague COPD (chronic obstructive pulmonary disease) ([facility]) 04/2017 ex smoker since 1994--CT also 12/11 Essential hypertension 09/26/2021 GERD (gastroesophageal reflux disease) 2010 [facility]-EGD 10/07 and 11/08 H/O colonoscopy 10/2018 [facility]- divert ds- no changes, ? repeat [...] ANGELLA RAMIREZ CNP Division of Hospitalist Medicine [facility] Comment: Please note this report has been [...] to obtain new IV. documented in this [facility]02-26-2024 Note* Home Care - Juju Erickson RN - 01/19/2024 4:20 PM EST [employer] following case for Discharge Needs. [id number]* Home Care - Juju Erickson RN - 01/19/2024 4:20 PM EST [employer] following case for Discharge Needs. [id number] Consult note* Juanita Whittington MD - 01/19/2024 3:30 PM EST Images from the original note were not included. [facility], Pulmonary Medicine [address] [place] [id number] [id number] 1940 Date of Admission - 01/16/2024 8:17 AM Date of evaluation - 01/19/2024 Room - [facility] A Hospital Day - 3 Consulting - Adrien Curry APRN - * Primary Care Physician - Wayne Conde DO Active Hospital Problem List Patient Active Problem List Diagnosis Essential hypertension H/O: UGI bleed History of DVT of lower extremity History of hypertension History of myocardial infarction Coronary artery disease involving [place] heart without angina pectoris COPD (chronic obstructive [...] History: Diagnosis Date Alzheimer's disease, unspecified (CODE) ([facility]) 01/2021 Anxiety CAD (coronary artery disease) 06/2016 Dr. Martinez- NE-hypokinetic RV- RCA ballon angioplasty- EF 48% 08/10- Dr Gianna Garrett ulcer 2010 Carotid artery disease without cerebral infarction ([facility]) 09/2015 angiogram with <70 % stenosis Left ICA- defers repeat studies Collagenous colitis [address] Teague COPD (chronic obstructive pulmonary disease) ([facility]) 04/2017 ex smoker since 1994--CT also 12/11 [...] Other specified glaucoma Psoriasis Thoracic compression fracture ([facility]) 1960 horse riding accident- DDD Past Surgical History Past Surgical History: Procedure Laterality Date BALLOON ANGIOPLASTY, ARTERY 06/[address] Martinez CARPAL TUNNEL RELEASE Bilateral 1988 CATARACT EXTRACTION Bilateral 12/09 [facility] CHOLE[facility] 2002 COLONOSCOPY 10/2018 [facility]- neg- ? due COLONOSCOPY 08/2011 chronic diarrhea ([facility]) FOOT SURGERY HIATAL HERNIA REPAIR 10/2011 gastroplexy per Bisconti ULNAR TUNNEL RELEASE Right 2002 UPPER GASTROINTESTINAL ENDOSCOPY 09/2011 GERD-uzair ulcer - s/p gastroplexy per Dr. Lamb 11/03 --neg CT abd 03/06 rech 10/07 ([facility]) UPPER GASTROINTESTINAL ENDOSCOPY 10/28/2016 [facility]- esoph stenosis and HH with reflux Social [...] min Stress: No Stress Concern Present (01/16/2024) [employer] - Occupational Stress Questionnaire Feeling of Stress : Not at all Social Connections: Moderately Integrated (01/16/2024) Social Connection and Isolation Panel [NHANES] Frequency of Communication with Friends and Family: Once a week Frequency of Social Gatherings with Friends and Family: Once a week Attends Restorationist Services: More than 4 times per year [...] Oral, Nightly ergocalciferol (Vitamin D2) 1.25 MG (50165 UT) capsule TAKE 1 CAPSULE BY MOUTH [...] in the 24 hours ending 01/19/24 1530 @[id number]@ Physical Exam General appearance: Awake, alert, no [...] TEST COMMUNICATION: Dr. Wasserman was notified via Mediamorph Secure Chat today at 10:[address] [...] this time No PFT available currently on [facility] Will resume Spiriva / Flovent and albuterol [...] note please contact the signing provider directly. [facility]02-26-2024 Consult note* Juanita Whittington MD - 01/19/2024 3:30 PM EST Images from the original note were not included. [facility], Pulmonary Medicine [address] [place], [place] [id number] [id number] 1940 Date of Admission - 01/16/2024 8:17 AM Date of evaluation - 01/19/2024 Room - [facility] A Hospital Day - 3 Consulting - Adrien Curry APRN - * Primary Care Physician - Wayne Conde DO Active Hospital Problem List Patient Active Problem List Diagnosis Essential hypertension H/O: UGI bleed History of DVT of lower extremity History of hypertension History of myocardial infarction Coronary artery disease involving [place] heart without angina pectoris COPD (chronic obstructive [...] History: Diagnosis Date Alzheimer's disease, unspecified (CODE) ([facility]) 01/2021 Anxiety CAD (coronary artery disease) 06/2016 Dr. Martinez- NE-hypokinetic RV- RCA ballon angioplasty- EF 48% 08/10- Dr Gianna Garrett ulcer 2011 Carotid artery disease without cerebral infarction ([facility]) 09/2015 angiogram with <70 % stenosis Left ICA- defers repeat studies Collagenous colitis [address] Teague COPD (chronic obstructive pulmonary disease) ([facility]) 04/2017 ex smoker since 1994--CT also 12/11 [...] Other specified glaucoma Psoriasis Thoracic compression fracture ([facility]) 1961 horse riding accident- DDD Past Surgical [...] min Stress: No Stress Concern Present (01/16/2024) [employer] [employer] - Occupational Stress Questionnaire Feeling of Stress : Not at all Social Connections: Moderately Integrated (01/16/2024) Social Connection and Isolation Panel [NHANES] Frequency of Communication with Friends and Family: Once a week Frequency of Social Gatherings with Friends and Family: Once a week Attends Restorationist Services: More than 4 times per year [...] Oral, Nightly ergocalciferol (Vitamin D2) 1.25 MG (11739 UT) capsule TAKE 1 CAPSULE BY MOUTH [...] in the 24 hours ending 01/19/24 1530 @[id number]@ Physical Exam General appearance: Awake, alert, no [...] TEST COMMUNICATION: Dr. Wasserman was notified via Mediamorph Secure Chat today at 10:[address] [...] this time No PFT available currently on [facility] Will resume Spiriva / Flovent and albuterol [...] provider directly. * Zunilda Diamond APRN - PHARMACY TECHNOLOGIST - 01/19/2024 8:50 AM ESTAssociated Order(s): IP CONSULT TO GERIATRICS [facility] Geriatric Medicine Inpatient Consult Service Admission Date: [...] and consider treating for pain --QTc= 433 --[place] PRN Seroquel and Haldol for ONLY if [...] glad she is -recommend follow up at [facility] for more in depth cognitive testing when [...] fills September for 30 days. Now uses [facility] for delivery and packaged meds. Nursing: reports patient up frequently during the night using the restroom. A urine and bladder scan are to be obtained. Confused, restless at times. Conversation with patient: patient denies pain. Seems irritated when asked questions. States I don't know to most questions. Conversation with caregiver: spouse. Sameer at bedside. - is very [place]. He reports patient has confusion when ill but then memory gets better. This is what is happening again this time. She is not at baseline currently. He feels her memory at homeis good and not like it is now. She is independent with ADLs. She forgets to take pills sometimes, but reminds her. Use [facility] - packaged meds. She has not [...] 220mcg Advance Care Planning Healthcare Power of Product Lister: Unknown NOK Code Status: Full Code- requests [...] mg, Oral, q8h, Adrien Curry APRN - PHARMACY TECHNOLOGIST albuterol 108 (90 Base) MCG/ACT inhaler 2 [...] History: Diagnosis Date Alzheimer's disease, unspecified (CODE) ([facility]) 01/2021 Anxiety CAD (coronary artery disease) 06/2016 Dr. Martinez- NE-hypokinetic RV- RCA ballon angioplasty- EF 48% 08/10- Dr Gianna Garrett ulcer 2011 Carotid artery disease without cerebral infarction ([facility]) 09/2015 angiogram with <70 % stenosis Left ICA- defers repeat studies Collagenous colitis [address] Teague COPD (chronic obstructive pulmonary disease) ([facility]) 04/2017 ex smoker since 1994--CT also 12/11 [...] 11/03 --neg CT abd 03/06 rech 10/07 ([facility]) UPPER GASTROINTESTINAL ENDOSCOPY 10/28/2016 [facility]- esoph stenosis and HH with reflux Social [...] 366 ms QTC Interval 433 ms P Minier 18 degrees QRS Minier -24 degrees T Wave Minier 37 degrees UT Interval 176 ms POCT glucose meter Collection [...] CNP 01/19/24 8:50 AM documented in this [facility]02-26-2024 Note* Care Coordination - Cherelle Larson RCP - 01/19/2024 12:32 PM EST Reviewed EMR from weekend. Patient remains admitted with ongoing confusion. Per inpt team, family wants to pursue diagnostic work up for lung nodule. Awaiting inpt pulmonary consult and possible CT lung Bx. Navigator will continue to assist with lung nodule follow up. [id number] [facility]* Care Coordination - Cherelle Larson RCP - 01/19/2024 12:32 PM EST Reviewed EMR from weekend. Patient remains admitted with ongoing confusion. Per inpt team, family wants to pursue diagnostic work up for lung nodule. Awaiting inpt pulmonary consult and possible CT lung Bx. Navigator will continue to assist with lung nodule follow up. [facility] [id number] Consult note* ANGELLA Marc CNP - 01/19/2024 8:50 AM ESTAssociated Order(s): IP CONSULT TO GERIATRICS [facility] Geriatric Medicine Inpatient Consult Service Admission Date: [...] and consider treating for pain --QTc= 433 --[place] PRN Seroquel and Haldol for ONLY if [...] glad she is -recommend follow up at [facility] for more in depth cognitive testing when [...] fills September for 30 days. Now uses [facility] for delivery and packaged meds. Nursing: reports patient up frequently during the night using the restroom. A urine and bladder scan are to be obtained. Confused, restless at times. Conversation with patient: patient denies pain. Seems irritated when asked questions. States I don't know to most questions. Conversation with caregiver: spouse. Sameer at bedside. - is very [place]. He reports patient has confusion when ill but then memory gets better. This is what is happening again this time. She is not at baseline currently. He feels her memory at homeis good and not like it is now. She is independent with ADLs. She forgets to take pills sometimes, but reminds her. Use [facility] pharmacy - packaged meds. She has not [...] 220mcg Advance Care Planning Healthcare Power of Product Lister: Unknown NOK Code Status: Full Code- requests [...] History: Diagnosis Date Alzheimer's disease, unspecified (CODE) ([facility]) 01/2021 Anxiety CAD (coronary artery disease) 06/2016 Dr. Martinez- NE-hypokinetic RV- RCA ballon angioplasty- EF 48% 08/10- Dr Gianna Garrett ulcer 2011 Carotid artery disease without cerebral infarction ([facility]) 09/2015 angiogram with <70 % stenosis Left ICA- defers repeat studies Collagenous colitis [address] Teague COPD (chronic obstructive pulmonary disease) ([facility]) 04/2017 ex smoker since 1994--CT also 12/11 Essential hypertension 09/26/2021 GERD (gastroesophageal reflux disease) 2010 [facility]-EGD 10/07 and 11/08 H/O colonoscopy 10/2018 [facility]- divert ds- no changes, ? repeat [...] neg- ? due COLONOSCOPY 08/2011 chronic diarrhea ([facility]) FOOT SURGERY HIATAL HERNIA REPAIR 10/2011 gastroplexy per [facility]is ULNAR TUNNEL RELEASE Right 2003 UPPER GASTROINTESTINAL ENDOSCOPY 09/2011 GERD-uzair ulcer - s/p gastroplexy per Dr. Lamb 11/03 --neg CT abd 03/06 rech 10/07 ([facility]) UPPER GASTROINTESTINAL ENDOSCOPY 10/28/2016 [facility]- esoph stenosis and HH with reflux Social [...] 366 ms QTC Interval 433 ms P Minier 18 degrees QRS Minier -24 degrees T Wave Minier 37 degrees UT Interval 176 ms POCT glucose meter Collection [...] follow with you ZUNILDA DIAMOND APRN - PHARMACY TECHNOLOGIST 01/19/24 8:50 AM [facility] [id number] Note* Care Coordination - Yessica Kaiser RN - 01/19/2024 8:14 AM EST Images from the original note were not included. Care Management Progress Note Patient remains on 4S for syncope and collapse Clinical updates: Patient is very confused, per PHARMACY TECHNOLOGIST note, patient pulled out her IV and [...] Length of Stay (Days): 3 GMLOS: 2.4 [facility] [id number] Note* Care Coordination - Yessica Kaiser RN - 01/19/2024 8:14 AM EST Images from the original note were not included. Care Management Progress Note Patient remains on 4S for syncope and collapse Clinical updates: Patient is very confused, per PHARMACY TECHNOLOGIST note, patient pulled out her IV and [...] Length of Stay (Days): 3 GMLOS: 2.4 [facility] [id number] Note* Care Coordination - Gabe Preston RN [...] Discharge Barriers: establish contact with a patient field representatives director to complete IA; form safe discharge plan; clinical stability Chart reviewed. Stopped by patient room to see if there were any visitors at the bedside. Patient alone and sleeping soundly. Attempted to phone patient's home number ([phone]) in hopes of getting in touch with spouse, Sameer, but rang with no answer. Phoned patient's sister, Inez Bowman, [phone]. Left HIPAA compliant message requesting call back. [...] noon tomorrow. TCC will continue to follow. [facility] [id number] Note* Care Coordination - Gabe Preston RN [...] Discharge Barriers: establish contact with a patient field representatives director to complete IA; form safe discharge plan; clinical stability Chart reviewed. Stopped by patient room to see if there were any visitors at the bedside. Patient alone and sleeping soundly. Attempted to phone patient's home number ([phone]) in hopes of getting in touch with spouse, Sameer, but rang with no answer. Phoned patient's sister, Inez Bowman, [phone]. Left HIPAA compliant message requesting call back. [...] noon tomorrow. TCC will continue to follow. [facility] [id number] Note* Care Coordination - Gabe Preston RN - 01/17/2024 4:36 PM EST Attempted to call spouse, Sameer, at home number listed for patient ([phone]) - no number available for spouse despite being listed under emergency contacts. Phone rang with no answer and no VMpicked up. Called patient's sister, Inez Bowman, at [phone]. Left HIPAA compliant message requesting call back. Provided TCC's work hours and cell number. Need to complete initial assessment - patient has Alzheimer's dementia. Awaiting call back. Electronically signed by Gabe Preston RN on01/17/2024 at 4:38 PM Have not received call back yet. TCC will continue to follow and attempt patient's sister again tomorrow. [facility] [id number] Note* Care Coordination - Gabe Preston RN - 01/17/2024 4:36 PM EST Attempted to call spouse, Sameer, at home number listed for patient ([phone]) - no number available for spouse despite being listed under emergency contacts. Phone rang with no answer and no VMpicked up. Called patient's sister, Inez Bowman, at [phone]. Left HIPAA compliant message requesting call back. Provided TCC's work hours and cell number. Need to complete initial assessment - patient has Alzheimer's dementia. Awaiting call back. Electronically signed by Gabe Preston RN on01/17/2024 at 4:38 PM Have not received call back yet. TCC will continue to follow and attempt patient's sister again tomorrow. [facility] [id number] History and physical note* Re Padilla MD [...] History: Diagnosis Date Alzheimer's disease, unspecified (CODE) ([facility]) 01/2021 Anxiety CAD (coronary artery disease) 06/2016 Dr. Martinez- NE-hypokinetic RV- RCA ballon angioplasty- EF 48% 08/10- Dr Gianna Garrett ulcer 2011 Carotid artery disease without cerebral infarction ([facility]) 09/2015 angiogram with <70 % stenosis Left ICA- defers repeat studies Collagenous colitis [address] Teague COPD (chronic obstructive pulmonary disease) ([facility]) 04/2017 ex smoker since 1994--CT also 12/11 [...] tablet 1 ergocalciferol (Vitamin D2) 1.25 MG (87936 UT) capsule TAKE 1 CAPSULE BY MOUTH [...] H&P to the patient's PCP. Thank you. [facility]02-23-2024 History and physical note* Re Padilla MD [...] History: Diagnosis Date Alzheimer's disease, unspecified (CODE) ([facility]) 01/2021 Anxiety CAD (coronary artery disease) 06/2016 Dr. Martinez- NE-hypokinetic RV- RCA ballon angioplasty- EF 48% 08/10- Dr Gianna Garrett ulcer 2011 Carotid artery disease without cerebral infarction ([facility]) 09/2015 angiogram with <70 % stenosis Left ICA- defers repeat studies Collagenous colitis [address] Teague COPD (chronic obstructive pulmonary disease) ([facility]) 04/2017 ex smoker since 1994--CT also 12/11 [...] tablet 1 ergocalciferol (Vitamin D2) 1.25 MG (21999 UT) capsule TAKE 1 CAPSULE BY MOUTH [...] patient's PCP. Thank you. documented in this [facility]02-23-2024 Note* Care Coordination - Cherelle Larson RCP [...] through the lung nodule clinic at discharge. [facility] [id number] Note* Care Coordination - Cherelle Larson RCP [...] through the lung nodule clinic at discharge. [facility] [id number] Note 1. Spiculated 2.5 x 1.8 cm nodule at the left lung apex. Further evaluation with PET/CT or tissue sampling is recommended. 2. Additional 0.5 cm and 0.4 cm nodules within the left lower lobe 3. Mild emphysema and fibrotic changes. 4. Moderate hiatal hernia. CRITICAL TEST COMMUNICATION: Dr. Wasserman was notified via Mediamorph Secure Chat today at 10:47 AM. 2017 [...] Signed Date/Time: 01/16/2024 10:47 AM EST [facility] RADIOLOG[facility] [id number] Emergency department Note* Don Wasserman MD - 01/16/2024 8:17 AM EST [facility] ED EMERGENCY DEPARTMENT ENCOUNTER Pt Name: [...] History: Diagnosis Date Alzheimer's disease, unspecified (CODE) ([facility]) 01/2021 Anxiety CAD (coronary artery disease) 06/2016 Dr. Martinez- NE-hypokinetic RV- RCA ballon angioplasty- EF 48% 08/10- Dr Gianna Garrett ulcer 2011 Carotid artery disease without cerebral infarction ([facility]) 09/2015 angiogram with <70 % stenosis Left ICA- defers repeat studies Collagenous colitis [address] Teague COPD (chronic obstructive pulmonary disease) ([facility]) 04/2017 ex smoker since 1994--CT also 12/11 Essential hypertension 09/26/2021 GERD (gastroesophageal reflux disease) 2010 [facility]-EGD 10/07 and 11/08 H/O colonoscopy 10/2018 [facility]- divert ds- no changes, ? repeat [...] Other specified glaucoma Psoriasis Thoracic compression fracture ([facility]) 1960 horse riding accident- DDD SURGICALHISTORY Past Surgical History: Procedure Laterality Date BALLOON ANGIOPLASTY, ARTERY 06/[address] Martinez CARPAL TUNNEL RELEASE Bilateral 1987 CATARACT EXTRACTION Bilateral 12/09 [facility] CHOLE[facility]ST[facility] 2001 COLONOSCOPY 10/2018 [facility]- neg- ? due COLONOSCOPY 08/2011 chronic diarrhea ([facility]) FOOT SURGERY HIATAL HERNIA REPAIR 10/2011 gastroplexy per [facility] ULNAR TUNNEL RELEASE Right 2003 UPPER GASTROINTESTINAL ENDOSCOPY 09/2011 GERD-uzair ulcer - s/p gastroplexy per Dr. Lamb 11/03 --neg CT abd 03/06 rech 10/07 ([facility]) UPPER GASTROINTESTINAL ENDOSCOPY 10/28/2016 [facility]- esoph stenosis and HH with reflux CURRENT [...] mouth Nightly. ERGOCALCIFEROL (VITAMIN D2) 1.25 MG (26107 UT) CAPSULE TAKE 1 CAPSULE BY MOUTH [...] TEST COMMUNICATION: Dr. Wasserman was notified via [employer] Secure Chat today at 10:47 AM. 2017 [...] Report Dictated on Electronically Signed By: Leonel Ruibo MD Electronically Signed Date/Time: 01/16/2024 10:27 AM [...] TEST COMMUNICATION: Dr. Wasserman was notified via [employer] Secure Chat today at 9:37 AM. Report [...] In compliance with this authorization, please visit www.fda.gov/media/326601/download or www.fda.gov/media/702018/download to access the applicable information sheets. TROPONIN, [...] Culture. Procedure Abnormality Status --------- ------ Complete Urinalysis[[id number]] Abnormal Final result Please view results for [...] MEDICATIONS: New Prescriptions No medications on file @[facility]([id number]:LAST:1)@ (Comment: Please notethis report has been produced [...] Wasserman MD 01/16/24 1218 documented in this [facility]02-23-2024 Physician Emergency department Note* Don Wasserman MD - 01/16/2024 8:17 AM EST [facility] ED EMERGENCY DEPARTMENT ENCOUNTER Pt Name: [...] History: Diagnosis Date Alzheimer's disease, unspecified (CODE) ([facility]) 01/2021 Anxiety CAD (coronary artery disease) 06/2016 Dr. Martinez- NE-hypokinetic RV- RCA ballon angioplasty- EF 48% 08/10- Dr Gianna Garrett ulcer 2010 Carotid artery disease without cerebral infarction ([facility]) 09/2015 angiogram with <70 % stenosis Left ICA- defers repeat studies Collagenous colitis [address] Teague COPD (chronic obstructive pulmonary disease) ([facility]) 04/2017 ex smoker since 1994--CT also 12/11 Essential hypertension 09/26/2021 GERD (gastroesophageal reflux disease) 2010 [facility]-EGD 10/07 and 11/08 H/O colonoscopy 10/2018 [facility]- divert ds- no changes, ? repeat [...] Other specified glaucoma Psoriasis Thoracic compression fracture ([facility]) 1960 horse riding accident- DDD SURGICALHISTORY Past [...] rech 10/07 ([facility]) UPPER GASTROINTESTINAL ENDOSCOPY 10/28/2016 [facility]- esoph stenosis and HH with reflux CURRENT [...] mouth Nightly. ERGOCALCIFEROL (VITAMIN D2) 1.25 MG (88191 UT) CAPSULE TAKE 1 CAPSULE BY MOUTH [...] TEST COMMUNICATION: Dr. Wasserman was notified via Mediam[employer] Secure Chat today at 10:47 AM. 2017 [...] TEST COMMUNICATION: Dr. Wasserman was notified via [employer] Secure Chat today at 9:37 AM. Report [...] In compliance with this authorization, please visit www.fda.gov/media/171312/download or www.fda.gov/media/629437/download to access the applicable information sheets. TROPONIN, [...] Culture. Procedure Abnormality Status --------- ------ Complete Urinalysis[[id number]] Abnormal Final result Please view results for [...] workup but I did explain that to [facility] as best as I could get him [...] MEDICATIONS: New Prescriptions No medications on file @[facility]([id number]:LAST:1)@ (Comment: Please notethis report has been produced [...] Emergency Physician Don Wasserman MD 01/16/24 1218 [facility] Center[facility]adhik08-03-5902 Telephone encounter Note* Telephone Encounter - Yesi Jon - 08/01/2023 10:24 AM EDT Name of caller: Ida Contact phone number: [phone] Relationship to Patient: Pharmacy Provider: Dr. Conde Practice: [facility] Chief Complaint/Reason for Call: Pharmacy had previously [...] hours to return their call: No [facility] CenterUmuhmt31-18-2456 Miscellaneous Notes* Telephone Encounter - Yesikali Webb - 08/01/2023 10:24 AM EDT Name of caller: Nikki Contact phone number: [phone] Relationship to Patient: Pharmacy Provider: Dr. Conde Practice: [facility] Chief Complaint/Reason for Call: Pharmacy had previously [...] return their call: No documented in this encounterSSt. Vincent HospitalOzpipp36-24-3370 Telephone encounter Note* Telephone Encounter - Fanny Lua LPN - 07/18/2023 10:52 AM EDT Rx loaded Medications were sent to wrong pharmacy, please sign again. [facility] [id number] Miscellaneous Notes* Telephone Encounter - Fanny Lua LPN - 07/18/2023 10:52 AM EDT Rx loaded Medications were sent to wrong pharmacy, please sign again. * Telephone Encounter - Roxy Pa - 07/18/2023 10:24 AM EDT Name of caller: Naheed Contact phone number: [phone] Relationship to Patient: [facility] Provider: Dr [...] return their call: N/A documented in this encounterSSt. Vincent HospitalKxnais07-22-1149 Telephone encounter Note* Telephone Encounter - Roxy Pa - 07/18/2023 10:24 AM EDT Name of caller: Naheed Contact phone number: [phone] Relationship to Patient: [facility] Provider: Dr [...] business hours to return their call: N/A [facility] CenterUktcof92-72-9674 History of Present illness Narrative* Wayne Potter Nyasiajmaarirosina, DO - 07/17/2023 2:00 PM EDT Images from the original note were not included. [facility] [address] [facility] [address] Visit type: Established Patient Reason for Visit: Follow-up (3 month med check) Assessment / Plan: Farzana was seen today for follow-up. Diagnoses and all orders for this visit: Alzheimer's disease, unspecified (CODE) (HCC) (Primary) Comments: Stable, continue Aricept Essential hypertension Hypercholesterolemia Acquired hypothyroidism Neuropathy Comments: Stable, risk of gabapentin discussed. Continue as is Coronary artery disease involving [place] heart without angina pectoris, unspecified vessel or [...] (BEFORE BREAKFAST) ergocalciferol (Vitamin D2) 1.25 MG (99369 UT) capsule TAKE 1 CAPSULE BY MOUTH [...] of myocardial infarction Coronary artery disease involving [place] heart without angina pectoris COPD (chronic obstructive pulmonary disease) ([facility]) Lumbar degenerative disc disease Alzheimer's disease, unspecified (CODE) ([facility]) Chronic systolic (congestive) heart failure ([facility]) Irritable bowel syndrome Psoriasis Osteoporosis with pathological fracture Thoracic compression fracture ([facility]) Anxiety GERD (gastroesophageal reflux disease) OAB (overactive [...] and knees without difficulty documented in this encounterSSt. Vincent HospitalRwoirb07-69-9103 Telephone encounter Note* Telephone Encounter - Fanny Lua LPN - 05/26/2023 11:47 AM EDT Rx loaded [facility] CenterOgjnku04-52-3564 Miscellaneous Notes* Telephone Encounter - Fanny Lua [...] picking up the medication: Yes Send to [facility] documented in this [facility]07-03-2023 Telephone encounter Note* Telephone Encounter - Shara [...] picking up the medication: Yes Send to [facility] on [address] [facility] [id number] Telephone encounter Note* Telephone Encounter - Jennifer Jensen MA - 05/09/2023 10:06 AM EDT Rx loaded [facility] CenterGcdzax00-82-8586 Miscellaneous Notes* Telephone Encounter - Jennifer Jensen MA - 05/09/2023 10:06 AM EDT Rx loaded * Telephone Encounter - Nicolette Solomon - 05/09/2023 9:42 AM EDT Medication name: HYDROcodone-acetaminophen ([place]) 5-325 MG tablet Medication dosage: 5-325 mg [...] up the medication: Yes documented in this encounterSSt. Vincent [id number] Telephone encounter Note* Telephone Encounter - Nicolette Solomon - 05/09/2023 9:42 AM EDT Medication name: HYDROcodone-acetaminophen ([place]) 5-325 MG tablet Medication dosage: 5-325 mg [...] prior to picking up the medication: Yes [facility] [id number] Telephone encounter Note* Telephone Encounter - Jennifer Jensen MA - 03/26/2023 4:34 PM EDT Tried to call patient to let her know all her scripts were sent to the pharmacy, but patient did not answer phone, phone just kept ringing and could not leave a message. [facility] [id number] Miscellaneous Notes* Telephone Encounter - Jennifer Jensen MA - 03/26/2023 4:34 PM EDT Tried to call patient to let her know all her scripts were sent to the pharmacy, but patient did not answer phone, phone just kept ringing and could not leave a message. * Telephone Encounter - Kitty Spence - 03/26/2023 4:23 PM EDT Name of caller: Hu Contact phone number: [phone] Relationship to Patient: [facility] Provider: Elton [...] PM EDT Rx loaded documented in this encounterSSt. Vincent HospitalKnqird66-28-9431 Telephone encounter Note* Telephone Encounter - Kitty Spence - 03/26/2023 4:23 PM EDT Name of caller: Hu Contact phone number: [phone] Relationship to Patient: [facility] Pharmacy Provider: Elton [...] hours to return their call: No [facility] CenterSxjfog57-81-2746 Telephone encounter Note* Telephone Encounter - Jennifer Jensen MA - 03/26/2023 3:48 PM EDT Rx loaded [facility] CenterZegqmb72-75-3872 History of Present illness Narrative* Wayne Conde DO - 01/09/2023 12:20 PM EST Images from the original note were not included. [facility] [address] [address] Visit type: Established Patient Reason for Visit: [...] heart failure (HCC) Coronary artery disease involving [place] heart without angina pectoris, unspecified vessel or [...] daily. - ergocalciferol (Vitamin D2) 1.25 MG (14919 UT) capsule; TAKE 1 CAPSULE BY MOUTH [...] 5 [DISCONTINUED] ergocalciferol (Vitamin D2) 1.25 MG (64806 UT) capsule TAKE 1 CAPSULE BY MOUTH [...] of myocardial infarction Coronary artery disease involving [place] heart without angina pectoris COPD (chronic obstructive [...] CATARACT EXTRACTION Bilateral 12/09 [facility] COLONOSCOPY 10/2018 [facility]- neg- ? due COLONOSCOPY 08/2011 chronic diarrhea ([facility]) FOOT SURGERY HIATAL HERNIA REPAIR 10/2011 gastroplexy per Adonis ULNAR TUNNEL RELEASE Right 2002 UPPER GASTROINTESTINAL ENDOSCOPY 09/2011 GERD-uzair ulcer - s/p gastroplexy per Dr. Lamb 11/03 --neg CT abd 03/06 rech 10/07 ([facility]) UPPER GASTROINTESTINAL ENDOSCOPY 10/28/2016 [facility]- esoph stenosis and HH with reflux Family [...] bowel sounds. No ascites. [facility]* Diagnosis Pulmonary emphysema, unspecified emphysema type (HCC) Hemoptysis Hemoptysis, unspecified documented in this encounter [facility] Work Phone: Evaluation note* Diagnosis Other osteoarthritis of spine, thoracic region documented in this encounter [facility]* Diagnosis Alzheimer's disease, unspecified (CODE) (HCC)- Primary Essential hypertension Unspecified essential hypertension Hypercholesterolemia Pure hypercholesterolemia Acquired hypothyroidism Unspecified hypothyroidism Neuropathy Mononeuritis of unspecified site Coronary artery disease involving [place] heart without angina pectoris, unspecified vessel or lesion type documented in this encounter [facility]* Diagnosis Syncope and collapse- Primary Syncope and collapse Lung nodule Other diseases of lung, not elsewhere classified Dehydration Colitis Other and unspecified noninfectious gastroenteritis and colitis Hypokalemia Hypopotassemia Syncope, unspecified syncope type Cognitive deficits Unspecified persistent mental disorders due to conditions classified elsewhere documented in this encounter [facility] HealthEvaluation note* Diagnosis Lumbar degenerative disc disease- Primary Pulmonary emphysema, unspecified emphysema type (HCC) Chronic systolic (congestive) heart failure (HCC) documented in this encounter [facility]* Diagnosis Essential hypertension- Primary Unspecified essential hypertension Alzheimer's disease, unspecified (CODE) (HCC) Chronic systolic (congestive) heart failure (HCC) Chronic bronchitis, unspecified chronic bronchitis type (HCC) Hypercholesterolemia Pure hypercholesterolemia Lumbar degenerative disc disease Coronary artery disease involving [place] heart without angina pectoris, unspecified vessel or lesion type Acquired hypothyroidism Unspecified hypothyroidism documented in this encounter [facility] note* Diagnosis Chronic systolic (congestive) heart failure (HCC)- Primary Chronic bronchitis, unspecified chronic bronchitis type (HCC) Other osteoarthritis of spine, thoracic region Alzheimer's disease, unspecified (CODE) (HCC) documented in this encounter [facility]* Diagnosis Coronary artery disease involving [place] heart without angina pectoris, unspecified vessel or lesion type- Primary History of myocardial infarction Alzheimer's disease, unspecified (CODE) (HCC) Hypercholesterolemia Pure hypercholesterolemia Acquired hypothyroidism Unspecified hypothyroidism Chronic bronchitis, unspecified chronic bronchitis type (HCC) Neuropathy Mononeuritis of unspecified site Anxiety Anxiety state, unspecified Scalp hematoma, initial encounter documented in this encounter [facility]* Diagnosis Essential hypertension- Primary Unspecified essential hypertension Alzheimer's disease, unspecified (CODE) (HCC) Coronary artery disease involving [place] heart without angina pectoris, unspecified vessel or lesion type Chronic bronchitis, unspecified chronic bronchitis type (HCC) Chronic systolic (congestive) heart failure (HCC) Compression fracture of thoracic vertebra, unspecified thoracic vertebral level, sequela Hypercholesterolemia Pure hypercholesterolemia Acquired hypothyroidism Unspecified hypothyroidism documented in this encounter [facility]* Diagnosis Neuropathy- Primary Mononeuritis of unspecified site Essential hypertension Unspecified essential hypertension Hypercholesterolemia Pure hypercholesterolemia Chronic systolic (congestive) heart failure (HCC) Coronary artery disease involving [place] heart without angina pectoris, unspecified vessel or lesion type Acquired hypothyroidism Unspecified hypothyroidism Alzheimer's disease, unspecified (CODE) (HCC) documented in this encounter [facility]* Diagnosis Essential hypertension- Primary Unspecified essential hypertension Alzheimer's disease, unspecified (CODE) (HCC) Chronic systolic (congestive) heart failure (HCC) Gastroesophageal reflux disease without esophagitis Esophageal reflux Chronic bronchitis, unspecified chronic bronchitis type (HCC) Coronary artery disease involving [place] heart without angina pectoris, unspecified vessel or lesion type Neuropathy Mononeuritis of unspecified site Hypercholesterolemia Pure hypercholesterolemia Irregular heart rhythm documented in this encounter [facility]* Diagnosis Essential hypertension- Primary Unspecified essential hypertension Alzheimer's disease, unspecified (CODE) (HCC) Chronic systolic (congestive) heart failure (HCC) Gastroesophageal reflux disease without esophagitis Esophageal reflux Chronic bronchitis, unspecified chronic bronchitis type (HCC) Coronary artery disease involving [place] heart without angina pectoris, unspecified vessel or lesion type Neuropathy Mononeuritis of unspecified site Hypercholesterolemia Pure hypercholesterolemia Irregular heart rhythm Normochromic normocytic anemia documented in this encounter [facility]Re[facility] (narrative)* Consultation (Routine) - Pending Review Specialty Diagnoses / Procedures Referred By Conteric t Referred To Contact Geriatric Medicine Diagnoses Cognitive deficits Procedures [facility] OFFICE/OUTPATIENT [facility] 60 MINUTES Zunilda Diamond APRN - PHARMACY TECHNOLOGIST [address] [address] [facility] [address] [place] [address] [place] [address] Referral ID Status Reason Start Date Expiration Date Visits Requested Visits Authorized [id number] Pending Review Specialty Services Required 01/19/2024 01/18/2025 [...] FoundDocuments on File Type Date Recorded 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 DNR (Do Not Resuscitate) 11/28/2016 Date Activated Date Inactivated Comments 01/16/2024 1:41 PM 01/21/2024 6:50 PM Documents on File Type Date Recorded 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 No January 02, 2025 9:34pm Living Will No January 09, 7:40am Do you have a Healthcare Power of Product Lister? No January 09, 2025 7:40am Living Will No January 23, 2025 11:46am Do you have a Healthcare Power of Product Lister? No January 23, 2025 11:46am Reason for Referral Specialty Diagnoses / Procedures Referred By Sukh t Referred To Contact Home Health Services Diagnoses Chronic systolic (congestive) heart failure (HCC) Chronic bronchitis, unspecified chronic bronchitis type (HCC) Other osteoarthritis of spine, thoracic region Alzheimer's disease, unspecified (CODE) (HCC) Procedures [facility] OFFICE/OUTPATIENT NEW HIGH MDM 60 MINUTES Wayne Conde F, DO [address] [facility] [address] [place] [address] Referral ID Status Reason Start Date Expiration Date Visits Requested Visits Authorized [id number] Pending Review Specialty Services Required 02/05/2024 01/30/2025 [...] 2024 11:05am LABWORK January 13, 2025 5:00am INTERMEDIATE LAB WORK January 17 5:00am INTERMEDIATE LAB WORK January 20 4:00am SOB January 23, 2025 10:3 7am INTERMEDIATE LAB WORK January 24, 2025 5: 00am INTERMEDIATE LAB WORK January 28, 2025 5: 00am INTERMEDIATE LAB WORK February 01, 2025 5 :00am [...] 2024 11:05am LABWORK January 13, 2025 5:00am INTERMEDIATE LAB WORK January 17 5:00am INTERMEDIATE LAB WORK January 20 4:00am SOB January 23, 2025 10:3 7am INTERMEDIATE LAB WORK January 24, 2025 5: 00am INTERMEDIATE LAB WORK January 28, 2025 5: 00am INTERMEDIATE LAB WORK February 01, 2025 5 :00am LORRIE LUNG MASS February 16, 2025 9:0 9am ABN EKG ([facility]) March 09, 2025 9:3 1am INTERMEDIATE LAB WORK March 24, 2025 5:00 am [...] section and content) DATE CREATED AUTHOR 05/15/2018 [facility] DATE CREATED AUTHOR AUTHOR'S ORGANIZ ATION 05/15/2018 [facility] DATE CREATED AUTHOR AUTHOR'S ORGANIZ ATION 03/01/2021 [facility] DATE CREATED AUTHOR AUTHOR'S ORGANIZ ATION 04/22/2025 [facility] DATE CREATED AUTHOR AUTHOR'S ORGANIZ ATION 06/11/2025 [facility] Reason for Visit (unrecogniz ed [...] nodule Procedures . Re Padilla MD [address] [facility] [address] [place] [address] [place] [address] Referral ID Status Reason Start Date Expiration Date Visits Re quested Visits Authorized [id number] 1 1 Reason Onset Date Comments Request [...] Care Teams (unrecognized sec tion and content) Group Home Supervisor Relationship Specialty Start Date End Date Wayne Conde, DO [address] [place] [address] PCP - General 04/24/19 Group Home Supervisor Relationship Specialty Start Date End Date Wayne Conde, DO [address] [place] [address] PCP - General 04/24/19 Group Home Supervisor Relationship Specialty Start Date End Date Wayne Conde, DO [address] [place] [address] PCP - General 04/24/19 Group Home Supervisor Relationship Specialty Start Date End Date Wayne Conde, DO [address] [place] [address] PCP - General 04/24/19 Group Home Supervisor Relationship Specialty Start Date End Date Wayne Conde, DO [address] [place] [address] PCP - General 04/24/19 Group Home Supervisor Relationship Specialty Start Date End Date Wayne Conde, DO [address] [place] [address] PCP - General 04/24/19 Group Home Supervisor Relationship Specialty Start Date End Date Wayne Conde, DO [address] [place] [address] PCP - General 04/24/19 Group Home Supervisor Relationship Specialty Start Date End Date Wayne Conde, DO [address] [place] [phone] PCP - General 04/24/19 Group Home Supervisor Relationship Specialty Start Date End Date Wayne Conde, DO [address] [place] [address] PCP - General 04/24/19 Group Home Supervisor Relationship Specialty Start Date End Date Wayne Conde, DO [address] [place] [phone] PCP - General 04/24/19 Group Home Supervisor Relationship Specialty Start Date End Date Wayne Conde, DO [address] [place] [phone] PCP - General 04/24/19 Group Home Supervisor Relationship Specialty Start Date End Date Wayne Conde, DO [address] [place] [phone] PCP - General 04/24/19 Group Home Supervisor Relationship Specialty Start Date End Date Wayne Conde, DO [address] [place] [phone] PCP - General 04/24/19 Group Home Supervisor Relationship Specialty Start Date End Date Wayne Conde, DO [address] [place] [phone] PCP - General 04/24/19 Group Home Supervisor Relationship Specialty Start Date End Date Wayne Conde, DO [address] [place] [phone] PCP - General 04/24/19 Group Home Supervisor Relationship Specialty Start Date End Date NyasiaWayne justice, DO [address] [place] [phone] PCP - General 04/24/19 Group Home Supervisor Relationship Specialty Start Date End Date NyasiaWayne justice, DO [address] [place] [address] PCP - General 04/24/19 Group Home Supervisor Relationship Specialty Start Date End Date NyasiajamarirosinaWayne, DO [address] [place] [address] PCP - General 04/24/19 Group Home Supervisor Relationship Specialty Start Date End Date Wayne Conde, DO [address] [place] [id number] PCP - General 04/24/19 Group Home Supervisor Relationship Specialty Start Date End Date Wayne Conde, [place] [address] PCP - General 04/24/19 Group Home Supervisor Relationship Specialty Start Date End Date NyasiajamarirosinaWayne, DO [address] [place] [address] PCP - General 04/24/19 Group Home Supervisor Relationship Specialty Start Date End Date NyasiaWayne justice, DO [address] [place] [phone] PCP - General 04/24/19 Group Home Supervisor Relationship Specialty Start Date End Date Wayne Conde DO [address] [place] [address] PCP - General 04/24/19 Team [...] 2025 End: February 16, 2025 Jennifer Tolbert COOL ROOFING INSTALLER, COOL ROOFING INSTALLER-C Attending Provider Active Start: February 16, 2025 [...] March 24, 2025 End: March 24, 2025 Group Home Supervisor Relationship Specialty Start Date End Date Wayne Conde AbbeyDO [address] [place] [phone] PCP - General 04/24/19 Group Home Supervisor Relationship Specialty Start Date End Date Wayne Conde AbbeyDO [address] [place] [phone] PCP - General 04/24/19 Group Home Supervisor Relationship Specialty Start Date End Date Wayne Conde AbbeyDO [address] [place], [place] [id number] PCP - General 04/24/19 Group Home Supervisor Relationship Specialty Start Date End Date Wayne Conde [facility] [address] [place] [phone] PCP - General 04/24/19 Scheduled Active and [...] Dalila Robison LPN) 215 (Given - Provider: Federcio Sanford RN) enoxaparin (Lovenox) syringe 40 mg [...] BE BASED ON THE PRIMARY CLINICAL RECORDS. [facility] [employer] [facility]. provides no warranty or guarantee of the accuracy or completeness of information in this document.
--- NOTE | 2025-07-02 15:46 | HP.PCM.HOS_ITS ---
HPI - General General Date of Admission: 07/02/25 Date of Service: 07/02/25 Chief Complaint: Right hip pain HPI Narrative ABDIFATAH MILLER, is a 84 F who presents with right hip pain. This is an 84-year-old female with history of COPD who fell landing on her right hip. Denies any head injury. Though does not recall the events. Patient had a right intertrochanteric hip fracture. Dr. Morgan Lua of orthopedics was contacted when seen patient with plans for surgery on the . [facility] Medical History Syncope and collapse LV dysfunction Anxiety IBS (irritable bowel syndrome) COPD (chronic obstructive pulmonary disease) Hx of myocardial infarction Arrhythmia Chronic CHF (congestive heart failure) Alzheimer's dementia Fx humerus shaft-closed Osteoarthritis Depressed HLD (hyperlipidemia) Coronary artery disease Thyroid disease Ambulatory dysfunction Generalized weakness Hypokalemia GERD (gastroesophageal reflux disease) Elevated BUN Fall Leukocytosis Dementia Hypoxia Hypertension Physical debility Closed fracture of humerus Home Medications ?Medication ?Instructions ?Recorded ?Last Taken ?Type aspirin 81 mg tablet,delayed 81 mg PO DAILY Heart heal th 01/02/25 Unknown History release donepezil 5 mg tablet 5 mg PO QHS BP 01/02/25 Unkn own History isosorbide mononitrate 60 mg 60 mg PO DAILY Heart fail ure 01/02/25 Unknown History tablet,extended release 24 hr levothyroxine 50 mcg tablet 50 mcg PO DAILY 01/02/25 U nknown History acetaminophen 500 mg tablet 1,000 mg (2 x 500 mg) PO Q 8 PRN 01/12/25 Unknown Rx Pain 1-5/10 or Fever #10 tabs acetaminophen 325 mg capsule 650 mg PO Q4H PRN fever 0 01/23/25 Unknown History acetaminophen 650 mg rectal 650 mg [place] Q4H 01/23/25 Unk nown History suppository albuterol sulfate 0.63 mg/3 mL 0.63 mg continuous nebu lization 01/23/25 Unknown History solution for nebulization Q6H PRN shortness of breath or wheezing calcium carbonate (Calcium 600) 600 mg PO DAILY Unknown History guaifenesin 400 mg PO TID 01/23/25 Unkno wn History guaifenesin 100 mg/5 mL oral 200 mg PO Q4H PRN congest ion 01/23/25 Unknown History liquid (Adult Tussin Chest Congestion) magnesium hydroxide 400 mg/5 mL 30 ml PO DAILY PRN con stipation 01/23/25 Unknown History oral suspension (Milk of Magnesia) metoprolol tartrate 50 mg tablet 50 mg PO BID 01/23/25 Unknown History tramadol 50 mg tablet 50 mg PO Q8H PRN pain Unknown History aluminum-magnesium hydroxide 225 30 ml PO Q4H PRN 01/23 05/18 Unknown History mg-200 mg/5 mL oral suspension bisacodyl 10 mg rectal suppository 10 mg [place] QDAY PRN 0 02/16/25 Unknown History dextrose 40 % oral gel (Glucose 10 g PO Q15M PRN 02/16 Unknown History Gel) gabapentin 300 mg capsule 300 mg PO BID 02/16/25 Unkno wn History glucagon HCl 1 mg solution for 1 mg subcut Q20M PRN Unknown History injection (Glucagon (HCl) Emergency Kit) magnesium oxide 400 mg (241.3 mg 400 mg PO BID 5 Unknown History magnesium) tablet (MagOx) mineral oil (Fleet Mineral Oil 118 ml [place] QDAY PRN 01/23 05/18 Unknown History enema) mirtazapine 15 mg tablet 15 mg PO QHS 02/16/25 Unknow n History omega-3 fatty acids 1,000 mg 1,000 mg PO QDAY 02/16/25 Unknown History capsule pantoprazole 40 mg tablet,delayed 40 mg PO QHS 5 Unknown History release Allergy/AdvReac Type Severity Reaction Status Date / Time codeine Allergy Rash Verified 03/09/25 09:40 Family History Mother Cancer Father Heart disease Sister Diabetes COPD (chronic obstructive pulmonary disease) Surgical History Hx of bilateral cataract extraction History of repair of hiatal hernia Hx laparoscopic cholecystectomy History of carpal tunnel release Hx of coronary artery balloon dilation (~06/2016) Social History Smoking Status: Former smoker alcohol intake: never ROS ROS Narrative All review of systems were negative except as mentioned above in the history of present illness and the other review of systems. Vital Signs Vital Signs Vital Signs: 07/02/25 11:38 07/02/25 14:09 Temperature 36.4 C L Temperature Source Oral Pulse Rate 66 72 Respiratory Rate 18 18 Blood Pressure 154/96 H 116/104 H Blood Pressure Mean 115 108 Pulse Ox 98 92 Oxygen Delivery Method Room Air Room Air Weight Weight: 47.6 kg Body Mass Index (BMI) 20.6 Physical Exam Narrative - Physical Exam General: Alert, Oriented x3, Cooperative HEENT: Atraumatic, PERRLA, EOMI, Normocephalic Oral: Moist Mucosa, No Gingival or Mucosal Lesions/ Ulcerations Neck: Supple, No JVD, Negative Carotid Bruits Lungs: Clear to auscultation, Normal air movement Cardiovascular: Regular rate, Normal S1, Normal S2, No murmurs Abdomen: Bowel Sounds Present, Soft, Non Tender, Non-Distended, No Hepato- splenomegaly Extremities: No clubbing, No cyanosis, No edema, Capillary Refill Less than 3 Seconds Skin: No rashes, No breakdown Musculoskeletal: Shortened right lower extremity compared to left. Normal dorsalis pedal pulses bilaterally. Neurological: Neuro grossly intact. Moves all extremity spontaneously. Psych/Mental Status: Normal Affect, Appropriate Results Lab / Micro Data Attestation: I reviewed the patient's lab results. 07/02/25 12:25 07/02/25 12:25 Labs: Laboratory Results - last 24 hr 07/02/25 12:25: WBC 8.3, RBC 4.40, Hgb 10.5 L, Hct 35.4 L, MCV 80.5 L, MCH 23.9 L, MCHC 29.7 L, RDW Std Deviation 54.8 H, RDW Coeff of Adonis 18.9 H, Plt Count 267, MPV 12.2 H, Immature Gran % (Auto) 0.500, Neut % (Auto) 66.6, Lymph % (Auto) 23.3, Randolph % (Auto) 8.0, Eos % (Auto) 1.0, Baso % (Auto) 0.6, Absolute Neuts (auto) 5.6, Absolute Lymphs (auto) 1.94, Nucleated RBC % 0, Sodium 140, Potassium 3.9, Chloride 103, Carbon Dioxide 22.7, Anion Gap 13, BUN 13, Creatinine 1.07, Estim Creat Clear Calc 27.61 L, Est GFR (MDRD) Non-Af 51 L, BUN/Creatinine Ratio 11.8, Glucose 107 H, Calcium 9.4, Blood Type Cancelled, Antibody Screen Cancelled 07/02/25 13:15: PT 13.3, INR 1.0, Blood Type O POSITIVE, Antibody Screen NEGATIVE Rhythm Strip Rhythm Strip: Sinus Rhythm Rate: 70 Ectopy: None Imaging Radiology Impression Chest X-Ray 07/02/25 12:01 IMPRESSION: Interval decrease in size of the cavitary lung lesion left upper lobe. Small scar remains. Emphysema Reading Location: [facility] Hip/Pelvis X-Ray 07/02/25 13:40 IMPRESSION: Right intertrochanteric fracture. Mild displacement. Reading Location: [facility] Assessment & Plan Assessment/Plan (1) Closed fracture of right hip: PLAN: Status post mechanical fall The ED spoke with Dr. Sbeastián Lua who will be on consult. Medically the patient is optimized to proceed with surgery. No additional workup necessary at this time. Pain control, bedrest for now, after surgery patient will have physical occupational therapy and case management to assist with the disposition. PLAN: Plan Chronic medical conditions * COPD: Continue with bronchodilators * Hypothyroidism: Continue with levothyroxine * Dementia: Continue with donezepil VTE prophylaxis with SCDs for now holding off on chemical prophylaxis given the pending surgery. CODE STATUS: Addressed with the patient. Patient wishes to be full code. Charges/Coding Visit Charges Inpatient E&M: 25382 Init Hosp L2
[2025-07-02 16:07] VITALS: BP 132/100; PULSE 73; RESP 18; TEMP 36.6; O2SAT 92
--- NOTE | 2025-07-02 16:20 | ED.RN ---
[employer] Supervisorpublic information coordinator: Funmilayo Almaraz [phone] or ext [phone] email [email or web address]
--- NOTE | 2025-07-02 16:22 | ED.RN ---
is very [place]. 1st choice for rehab is [facility] [phone]. Patients home pharmacy is [facility] in [place] [phone].
[2025-07-02 16:55] VITALS: BMI 19.5
[2025-07-02 17:09] VITALS: BP 158/83; PULSE 74; RESP 16; TEMP 36.5; O2SAT 92
[2025-07-02 17:37] VITALS: BP 158/83; PULSE 74; RESP 16; TEMP 36.5; O2SAT 92
--- NOTE | 2025-07-02 18:04 | NURSING ---
attempted to get home medication list from family they are unable to obtain list. called pharmacy and primary care dr and unable to get list till friday.
[2025-07-02 19:13] LABS: AST(SGOT) 51 U/L (<=31); Alanine Aminotransfer ALT/SGPT 31 U/L (<=34); Albumin, Serum 4.0 g/dL (3.4-4.8); Alkaline Phosphatase 131 U/L (35-104); Globulin 3.2 g/dL (2.2-4.2); Vitamin D,25 Hydroxy 66.3 ng/mL (30-100)
[2025-07-02 20:32] VITALS: BP 131/104; PULSE 86; RESP 18; TEMP 36.6; O2SAT 92
[2025-07-02] MEDS: Senna/Docusate Sodium 1 Tablet 2 TABLET PO (20:39)
[2025-07-03] VITALS (20 sets, daily range): BP systolic 87–176; BP diastolic 42–96; PULSE 74–97; RESP 12–20; TEMP 36.1–36.8; O2SAT 88–97
[2025-07-03 06:29] LABS: Hematocrit 28.3 % (37-47); Hemoglobin 8.5 g/dL (12.0-15.0); Immature Granulocytes Count 0.010 X10^3/uL (0.0-0.0); Mean Corp Hgb Conc 30.0 g/dL (32-36); Mean Corpuscular Volume 79.9 fL (81-99); Mean Platelet Vol. 12.4 fl (6.2-12.0); NRBC Flagged by Analyzer 0 % (0-5); Platelet Count 218 K/mm3 (150-450); RBC Distribution Width CV 18.7 % (11.6-14.6); RBC Distribution Width SD 54.4 fl (35.1-43.9); Red Blood Count 3.54 M/mm3 (4.2-5.4); White Blood Count 7.2 K/mm3 (4.4-11.0)
--- NOTE | 2025-07-03 07:00 | RAD_ITS ---
EXAM: XR Right Hip With Pelvis When Performed, 1 View CLINICAL INDICATION: GAMMA NAIL RT HIP TECHNIQUE: Frontal view of the right hip with pelvis when performed. COMPARISON: No relevant prior studies available. FINDINGS: BONES/JOINTS: Unremarkable. No acute fracture. No dislocation. SOFT TISSUES: Unremarkable. OTHER FINDINGS: Total of 7 spot fluoroscopic images. Total fluoroscopy time 141.6 seconds. Total radiation dose 14.65 mGy. RAD/Hip Min 2 Views (Portable) IMPRESSION: Fluoroscopic guidance was used intraoperatively. Please refer to the operative note for further details. Reading Location: [id number]
[2025-07-03 07:02] LABS: Anion Gap 9 (5-15); BUN 15 mg/dL (4-19); BUN/Creat Ratio 15.3 RATIO (10-20); Calcium,Total 8.6 mg/dL (7.6-11.0); Carbon Dioxide 27.8 mmol/L (21.0-32.0); Chloride 100 mmol/L (98-108); Estimated Creatinine Clearance 29.63 ml/min (50-250); Glucose 111 mg/dL (70-99); Potassium 3.8 mmol/L (3.3-5.1)
--- NOTE | 2025-07-03 07:39 | PCM.PRE.AN2 ---
ASA Classification* ASA Classification ASA Classification: 3 and E Assessment & Plan Anesthesia* Anesthesia Assessment Anesthesia Assessment: Discussed sedation and/or anesthesia options, risks, benefits, and alternatives with patient/parents/legal guardian/POA. Questions invited. The patient/parents/legal guardian/POA seems to understand and agrees to proceed with anesthesia plan. Reviewed the physical assessment, medical history, allergy history and patient home medications list prior to surgery/procedure/anesthetic and documented any changes. Performed airway and anesthesia risk assessments. Anesthesia Type Anesthesia Type: Spinal (ga bkup) Anesthesia Focused Assessment* Temperature: 98.3 F Pulse Rate: 80 Blood Pressure: 106/62 Respiratory Rate: 18 Pulse Ox: 92 Airway Assessment Mouth opens: >3 cm Mallampati Score: II Labs Anesthesia Preop lab: CBC WBC 7.2 K/mm3 (4.4-11.0) 07/03/25 05:11 07/03/25 RBC 3.54 M/mm3 (4.2-5.4) L 07/03/25 05:11 07/03/25 Hgb 8.5 g/dL (12.0-15.0) L 07/03/25 05:11 07/03/25 Hct 28.3 % (37-47) L 07/03/25 05:11 07/03/25 Plt Count 218 K/mm3 (150-450) 07/03/25 05:11 07/03/25 CHEMISTRY Potassium 3.8 mmol/L (3.3-5.1) 07/03/25 05:11 07/03/25 Sodium 137 mmol/L (133-145) 07/03/25 05:11 07/03/25 Magnesium 1.7 mg/dL (1.5-2.2) 01/28/25 06:00 01/28/25 Phosphorus 3.6 mg/dL (2.5-4.9) 01/11/25 05:31 01/11/25 BUN 15 mg/dL (4-19) 07/03/25 05:11 07/03/25 Creatinine 0.99 mg/dL (0.70-1.20) 07/03/25 05:11 07/03/25 Glucose 111 mg/dL (70-99) H 07/03/25 05:11 07/03/25 TSH 1.530 uIU/mL (0.300-4.200) 07/03/25 05:11 07/03/25 COAG PT 13.3 SECONDS (11.7-14.9) 07/02/25 13:15 07/02/25 Pre-Assessment Diagnosis/Proposed Procedure Planned Operative Procedure(s): Gamma nailing hip fracture Anesthesia History 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 When Was Last Pacemaker Check QUESTION #4 FULL TEXT: You/Your Family Experience fever (hyperthermia) with Anesthesia Last Oral Intake Last Oral intake: Last Oral Intake NPO since Meds taken in AM with sips of water? 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 mechanic Female HX of Motion Sickness HX of N/V After Surgery Non-Smoker Duration of Surgery greater than 60 minutes Number of Risk Factors PONV Score Height & Weight Height & Weight: Anesthesia: Height & Weight Height 4 ft 11.84 in 07/02/25 16:55 Weight: 45.178 kg 07/02/25 16:55 Body Mass Index (BMI) 19.5 07/02/25 16:55 Respiratory Assessment Respiratory Assessment - automobile service station mechanic: Respiratory Tract Infection Hx - automobile service station mechanic Hx Respiratory Tract Infection No 07/02/25 17:30 STOP Sleep Apnea STOP Sleep Apnea - automobile service station mechanic: STOP Sleep Apnea - automobile service station mechanic Hx Hypertension Yes 07/03/25 07:09 Hx Sleep Apnea No 07/02/25 16:55 CPAP BIPAP Do you snore loudly (louder No 07/02/25 16:55 than talking or can be heard Do you often feel tired/ No 07/02/25 16:55 fatigued/ sleepy during daytime? Has anyone observed you stop No 07/02/25 16:55 breathing during sleep? STOP Results Negative 07/02/25 16:55 QUESTION #5 FULL TEXT : Do you snore loudly (louder than talking or can be heard through closed doors)? 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 Specify any problems Hx of Preganancy in last 3 No 07/02/25 16:55 Months Nurse Filling Out Transfusion TWOLF 07/02/25 16:55 & Questions: Date: 07/02/25 07/02/25 16:55 Time: 16:59 07/02/25 16:55 Patient unable to answer at Yes 07/02/25 16:55 this time (ie. confused, unrespo /Reproduction History /Reproductive History - automobile service station mechanic: /Reproductive Hx- automobile service station mechanic Hx Now No 07/02/25 17:30 Gestational Age (in weeks): EDC: Hx Hx Para Hx Section SAB No 07/02/25 17:30 Active Medications Active Medications: Current Medications Generic Name Dose Route Start Last Admin Trade Name Freq PRN Reason Stop Dose Admin Acetaminophen 1,000 mg 07/02/25 22:00 07/03/25 02:30 Acetaminophen 500 Mg Tablet PO Not Given Q8 BLANCA Albuterol Sulfate 2.5 mg 07/02/25 16:50 Albuterol 2.5 Mg/3 Ml Vial.Neb. INHALATION Q2H PRN PRN SOB &/OR WHEEZING Sodium Chloride 250 mls @ 15 mls/hr 07/02/25 17:08 IV .[id number] PRN Saline Flush Sodium Chloride 250 mls @ 15 mls/hr 07/02/25 17:08 IV .[id number] PRN Additional IVPB Infusion Cefazolin Sodium 2 gm/ Sodium 110 mls @ 200 mls/hr 07/03/25 08:00 Chloride IV 07/03/25 08:32 X1 ONE Morphine Sulfate 2 - 4 mg 07/02/25 16:50 Morphine 2 Mg/Ml Syringe IV Q3H PRN PRN Pain Score 6-10 Morphine Sulfate 2 - 4 mg 07/02/25 16:53 07/03/25 02:30 Morphine 4 Mg/Ml Syringe IV 4 mg Q3H PRN PRN Administration Pain Score 6-10 Ondansetron HCl 4 mg 07/02/25 16:50 Ondansetron 4 Mg/2 Ml Vial IV Q8H PRN PRN NAUSEA/VOMITING Oxycodone HCl 5 mg 07/02/25 16:50 Oxycodone 5 Mg Tablet PO Q4H PRN PRN Pain Score 4-10 Senna/Docusate Sodium 2 tablet 07/02/25 22:00 07/02/25 20:39 Senna/Docusate Sodium 1 Tablet PO 2 tablet BID BLANCA Administration Sodium Chloride 10 - 40 ml 07/02/25 17:08 0.9% Saline Lock 10 Ml Syringe IV UD PRN SALINE FLUSH Temazepam 15 mg 07/02/25 16:50 07/02/25 20:39 Temazepam 15 Mg Capsule PO 15 mg QHS PRN PRN Administration INSOMNIA PFSH Medical History Syncope and collapse LV dysfunction Anxiety IBS (irritable bowel syndrome) COPD (chronic obstructive pulmonary disease) Hx of myocardial infarction Arrhythmia Chronic CHF (congestive heart failure) Alzheimer's dementia Fx humerus shaft-closed Osteoarthritis Depressed HLD (hyperlipidemia) Coronary artery disease Thyroid disease Ambulatory dysfunction Generalized weakness Hypokalemia GERD (gastroesophageal reflux disease) Elevated BUN Fall Leukocytosis Dementia Hypoxia Hypertension Physical debility Closed fracture of humerus Medical History unable to obtain Home Medications ?Medication ?Instructions ?Recorded ?Last Taken ?Type aspirin 81 mg tablet,delayed 81 mg PO DAILY Heart health 01/02/25 Unknown History release donepezil 5 mg tablet 5 mg PO QHS BP 01/02/25 Unknown History isosorbide mononitrate 60 mg 60 mg PO DAILY Heart failure 01/02/25 Unknown History tablet,extended release 24 hr levothyroxine 50 mcg tablet 50 mcg PO DAILY 01/02/25 Unknown History acetaminophen 500 mg tablet 1,000 mg (2 x 500 mg) PO Q8 PRN 01/12/25 Unknown Rx Pain 1-5/10 or Fever #10 tabs acetaminophen 325 mg capsule 650 mg PO Q4H PRN fever 01/23/25 Unknown History acetaminophen 650 mg rectal 650 mg [place] Q4H 01/23/25 Unknown History suppository albuterol sulfate 0.63 mg/3 mL 0.63 mg continuous nebulization 01/23/25 Unknown History solution for nebulization Q6H PRN shortness of breath or wheezing calcium carbonate (Calcium 600) 600 mg PO DAILY 01/23/25 Unknown History guaifenesin 400 mg PO TID 01/23/25 Unknown History guaifenesin 100 mg/5 mL oral 200 mg PO Q4H PRN congestion 01/23/25 Unknown History liquid (Adult Tussin Chest Congestion) magnesium hydroxide 400 mg/5 mL 30 ml PO DAILY PRN constipation 01/23/25 Unknown History oral suspension (Milk of Magnesia) metoprolol tartrate 50 mg tablet 50 mg PO BID 01/23/25 Unknown History tramadol 50 mg tablet 50 mg PO Q8H PRN pain 01/23/25 Unknown History aluminum-magnesium hydroxide 225 30 ml PO Q4H PRN 02/16/25 Unknown History mg-200 mg/5 mL oral suspension bisacodyl 10 mg rectal suppository 10 mg [place] QDAY PRN 02/16/25 Unknown History dextrose 40 % oral gel (Glucose 10 g PO Q15M PRN 02/16/25 Unknown History Gel) gabapentin 300 mg capsule 300 mg PO BID 02/16/25 Unknown History glucagon HCl 1 mg solution for 1 mg subcut Q20M PRN 02/16/25 Unknown History injection (Glucagon (HCl) Emergency Kit) magnesium oxide 400 mg (241.3 mg 400 mg PO BID 02/16/25 Unknown History magnesium) tablet (MagOx) mineral oil (Fleet Mineral Oil 118 ml [place] QDAY PRN 02/16/25 Unknown History enema) mirtazapine 15 mg tablet 15 mg PO QHS 02/16/25 Unknown History omega-3 fatty acids 1,000 mg 1,000 mg PO QDAY 02/16/25 Unknown History capsule pantoprazole 40 mg tablet,delayed 40 mg PO QHS 02/16/25 Unknown History release Allergy/AdvReac Type Severity Reaction Status Date / Time codeine Allergy Rash Verified 03/09/25 09:40 Family History Mother Cancer Father Heart disease Sister Diabetes COPD (chronic obstructive pulmonary disease) Surgical History Hx of bilateral cataract extraction History of repair of hiatal hernia Hx laparoscopic cholecystectomy History of carpal tunnel release Hx of coronary artery balloon dilation (~06/2016) Social History Smoking Status: Former smoker alcohol intake: never Review of Systems (Anesthesia) ROS Narrative System reviewed and no additional complaints, except as documented.
--- NOTE | 2025-07-03 07:48 | PCM.CONS.GEN ---
Assessment & Plan Assessment/Plan (1) Closed fracture of right hip: QUALIFIERS: Encounter type: initial encounter Qualified Code(s): S72.001A - Fracture of unspecified part of neck of right femur, initial encounter for closed fracture PLAN: Plan of care was discussed and reviewed at length with the patient as well as Dr. Sebastián Lua including surgical and nonsurgical treatment options. At this time she does wish to proceed with open reduction internal fixation of right intertrochanteric hip fracture. Potential risk benefits and complications of this procedure reviewed in detail including but not limited to infection or blood vessel damage persistent pain numbness tingling paresthesias blood clot pulmonary malaise him and the requirement for possible further surgery she expressed understanding and has no further questions for the doctor. Due to patient's dementia her daughter who is the power of privacy attorney did provide verbal consent for above-stated procedure over the phone all of her questions were answered. With patient's history of IVC filter placement and poor kidney function we will plan for Eliquis 2.5 mg twice daily for DVT prophylaxis postoperatively. We will follow her in the perioperative period. HPI Consult Data Date of Consult: 07/03/25 HPI Narrative Reason for Consultation: Right hip fracture HPI Narrative: ABDIFATAH MILLER, is a 84 F who presented to [facility] emergency department yesterday after a fall at home landing on her right hip. She denies head injury or loss of consciousness. She feels the hip was normal and pain-free prior to the fall. She does not necessarily recall the episode but she does know that she is in the hospital with right hip injury. She is a poor historian. She has a history of dementia. She admits to living at home but is not sure if she lives with anyone. Per the chart she does live with her . She does admit to ambulating with a cane prior to the injury but again no pre-existing pain in the right hip prior to the injury. She currently denies left hip pain knee pain foot or ankle pain. Denies numbness or tingling into the feet. Denies fevers chills or other signs of infection. Per patient report she denies a history of DVT or pulmonary embolism. Orthopedics was consulted [facility], [facility] Medical History Syncope and collapse LV dysfunction Anxiety IBS (irritable bowel syndrome) COPD (chronic obstructive pulmonary disease) Hx of myocardial infarction Arrhythmia Chronic CHF (congestive heart failure) Alzheimer's dementia Fx humerus shaft-closed Osteoarthritis Depressed HLD (hyperlipidemia) Coronary artery disease Thyroid disease Ambulatory dysfunction Generalized weakness Hypokalemia GERD (gastroesophageal reflux disease) Elevated BUN Fall Leukocytosis Dementia Hypoxia Hypertension Physical debility Closed fracture of humerus Medical History unable to obtain Home Medications ?Medication ?Instructions ?Recorded ?Last Taken ?Type aspirin 81 mg tablet,delayed 81 mg PO DAILY Heart health 01/02/25 Unknown History release donepezil 5 mg tablet 5 mg PO QHS BP 01/02/25 Unknown History isosorbide mononitrate 60 mg 60 mg PO DAILY Heart failure 01/02/25 Unknown History tablet,extended release 24 hr levothyroxine 50 mcg tablet 50 mcg PO DAILY 01/02/25 Unknown History acetaminophen 500 mg tablet 1,000 mg (2 x 500 mg) PO Q8 PRN 01/12/25 Unknown Rx Pain 1-5/10 or Fever #10 tabs acetaminophen 325 mg capsule 650 mg PO Q4H PRN fever 01/23/25 Unknown History acetaminophen 650 mg rectal 650 mg MN Q4H 01/23/25 Unknown History suppository albuterol sulfate 0.63 mg/3 mL 0.63 mg continuous nebulization 01/23/25 Unknown History solution for nebulization Q6H PRN shortness of breath or wheezing calcium carbonate (Calcium 600) 600 mg PO DAILY 01/23/25 Unknown History guaifenesin 400 mg PO TID 01/23/25 Unknown History guaifenesin 100 mg/5 mL oral 200 mg PO Q4H PRN congestion 01/23/25 Unknown History liquid (Adult Tussin Chest Congestion) magnesium hydroxide 400 mg/5 mL 30 ml PO DAILY PRN constipation 01/23/25 Unknown History oral suspension (Milk of Magnesia) metoprolol tartrate 50 mg tablet 50 mg PO BID 01/23/25 Unknown History tramadol 50 mg tablet 50 mg PO Q8H PRN pain 01/23/25 Unknown History aluminum-magnesium hydroxide 225 30 ml PO Q4H PRN 02/16/25 Unknown History mg-200 mg/5 mL oral suspension bisacodyl 10 mg rectal suppository 10 mg MN QDAY PRN 02/16/25 Unknown History dextrose 40 % oral gel (Glucose 10 g PO Q15M PRN 02/16/25 Unknown History Gel) gabapentin 300 mg capsule 300 mg PO BID 02/16/25 Unknown History glucagon HCl 1 mg solution for 1 mg subcut Q20M PRN 02/16/25 Unknown History injection (Glucagon (HCl) Emergency Kit) magnesium oxide 400 mg (241.3 mg 400 mg PO BID 02/16/25 Unknown History magnesium) tablet (MagOx) mineral oil (Fleet Mineral Oil 118 ml MN QDAY PRN 02/16/25 Unknown History enema) mirtazapine 15 mg tablet 15 mg PO QHS 02/16/25 Unknown History omega-3 fatty acids 1,000 mg 1,000 mg PO QDAY 02/16/25 Unknown History capsule pantoprazole 40 mg tablet,delayed 40 mg PO QHS 02/16/25 Unknown History release Allergy/AdvReac Type Severity Reaction Status Date / Time codeine Allergy Rash Verified 03/09/25 09:40 Family History Mother Cancer Father Heart disease Sister Diabetes COPD (chronic obstructive pulmonary disease) Surgical History Hx of bilateral cataract extraction History of repair of hiatal hernia Hx laparoscopic cholecystectomy History of carpal tunnel release Hx of coronary artery balloon dilation (~06/2016) Social History Smoking Status: Former smoker alcohol intake: never ROS ROS Narrative All negative outside of pertinent positives documented above in the history of present illness Physical Exam Narrative Patient is alert and oriented x 3 in no acute distress at rest breathing easily without respiratory distress. She is resting in hospital bed in the supine position the right hip is shortened and externally rotated. Range of motion deferred due to right hip fracture. Left hip without tenderness gentle mobility right hip without pain bilateral knees without deformity or tenderness no calf pain or swelling no signs of DVT patient is able to actively plantar and dorsiflex bilateral ankles against resistance sensation intact to light touch pedal pulses present equal bilaterally neurovascularly intact Medical Records Data Attestation: I reviewed the patient's medical records Lab / Micro Data Attestation: I reviewed the patient's lab results. 07/03/25 05:11 07/03/25 05:11 Labs: Laboratory Results - last 24 hr 07/02/25 12:25: WBC 8.3, RBC 4.40, Hgb 10.5 L, Hct 35.4 L, MCV 80.5 L, MCH 23.9 L, MCHC 29.7 L, RDW Std Deviation 54.8 H, RDW Coeff of Adonis 18.9 H, Plt Count 267, MPV 12.2 H, Immature Gran % (Auto) 0.500, Neut % (Auto) 66.6, Lymph % (Auto) 23.3, [place] % (Auto) 8.0, Eos % (Auto) 1.0, Baso % (Auto) 0.6, Absolute Neuts (auto) 5.6, Absolute Lymphs (auto) 1.94, Nucleated RBC % 0, Sodium 140, Potassium 3.9, Chloride 103, Carbon Dioxide 22.7, Anion Gap 13, BUN 13, Creatinine 1.07, Estim Creat Clear Calc 27.61 L, Est GFR (MDRD) Non-Af 51 L, BUN/Creatinine Ratio 11.8, Glucose 107 H, Calcium 9.4, Total Bilirubin 0.45, AST 51 H, ALT 31, Alkaline Phosphatase 131 H, Total Protein 7.2, Albumin 4.0, Globulin 3.2, Albumin/Globulin Ratio 1.2, Vitamin D 25-Hydroxy 66.3, Blood Type Cancelled, Antibody Screen Cancelled 07/02/25 13:15: PT 13.3, INR 1.0, Blood Type O POSITIVE, Antibody Screen NEGATIVE 07/03/25 05:11: WBC 7.2, RBC 3.54 L, Hgb 8.5 L, Hct 28.3 L, MCV 79.9 L, MCH 24.0 L, MCHC 30.0 L, RDW Std Deviation 54.4 H, RDW Coeff of Adonis 18.7 H, Plt Count 218, MPV 12.4 H, Immature Gran % (Auto) 0.100, Neut % (Auto) 44.0 L, Lymph % (Auto) 37.3, [place] % (Auto) 17.3 H, Eos % (Auto) 0.7, Baso % (Auto) 0.6, Absolute Neuts (auto) 3.2, Absolute Lymphs (auto) 2.69, Nucleated RBC % 0, Sodium 137, Potassium 3.8, Chloride 100, Carbon Dioxide 27.8, Anion Gap 9, BUN 15, Creatinine 0.99, Estim Creat Clear Calc 29.63 L, Est GFR (MDRD) Non-Af 56 L, BUN/Creatinine Ratio 15.3, Glucose 111 H, Calcium 8.6, TSH 1.530 Rhythm Strip Rhythm Strip: Sinus Rhythm Rate: 70 Ectopy: None Imaging Radiology Impression Chest X-Ray 07/02/25 12:01 IMPRESSION: Interval decrease in size of the cavitary lung lesion left upper lobe. Small scar remains. Emphysema Reading Location: [facility] Presence of IVC filter and surgical clips from previous cholecystectomy Hip/Pelvis X-Ray 07/02/25 13:40 IMPRESSION: Right intertrochanteric fracture. Mild displacement. Reading Location: [facility]
[2025-07-03] MEDS: fentaNYL 100 MCG/2 ML Ampul 50 MCG IV (08:32)
[2025-07-03] MEDS: TRANEXAMIC ACID 1,000 MG/10 ML ML 1000 MG IV (08:40)
[2025-07-03] MEDS: Cefazolin 1 GM/5 ML Vial 4 GM IV (08:52)
[2025-07-03] MEDS: Midazolam 2 MG/2 ML Syringe 0.5 MG IV (08:57)
[2025-07-03] MEDS: Lactated Ringers 1,000 ML 15 ML IV (09:15)
--- NOTE | 2025-07-03 09:28 | OP.PCM_ITS ---
Problems Associated Problem List Diagnoses (1) Closed fracture of right hip: Operative Report (Standard) Operative Information Date of Procedure: 07/03/25 Pre-Operative Diagnosis: Right hip intertrochanteric fracture Post-Operative Diagnosis: Right hip intertrochanteric fracture with subtrochanteric extension Surgery/Procedure Performed: Open reduction internal fixation right hip fracture, long gamma nail paste mixer: Yes Lion Tamer: Pauly Calderón Tasks completed by assistant professor of mathematics: Closing and Implanting device Additional assistant professor of business?: No Type of Anesthesia: Spinal RN Documented Start/Stop Times: Operation Date: 07/03/25 08:30 Case Time Anesthesia Start 07/03/25 08:17 Into Room 07/03/25 08:17 Procedure Start 07/03/25 08:58 Procedure Start Time: 08:58 Procedure Stop Time: 09:40 Select all DRAINS/GRAFTS/IMPLANTS that apply: None Special Medications: Ancef 2 g IV, Tranexamic acid 1 g IV Estimated Blood Loss: 50 Fluids Replaced: 400 Specimen collected: No Description of surgery: Preoperative diagnosis: Right hip displaced unstable intertrochanteric fracture Postoperative diagnosis: Same with subtrochanteric extension Title of operation: Right hip open reduction internal fixation, intramedullary nail fixation, locked Surgeon: Dr. Sebastián Lua Blacking Wheel Tender: Pauly Calderón PA-C Anesthesia: Spinal l Medications: Ancef, TXA Indications for surgery: Patient is an 84-year-old female sustained a hip fracture yesterday. Patient explained diagnosis and treatment options. Family was not available on the phone. Not present in the hospital . patient evaluated by the medical services. Patient did wish to have surgery. Appropriate informed consent obtained and signed. Findings: Patient had a displaced unstable intertrochanteric hip with subtrochanteric extension fracture. They underwent standard reduction, internal fixation using a [place] long gamma 4 nail. Nail size was 11 mm x 320. Proximal cross locking screw was 90. Distal cross locking screw was 42.5.. x- rays taken throughout. assistant professor of communication, physician assistant professor of business, was utilized throughout the entire procedure. They were vital to the procedure from beginning to end. They help with patient transfer, patient padding and positioning, fracture reduction, maintenance of fracture reduction, internal fixation of implants, wound closure, bandage application, patient transfer. Without certified dental assistant, surgical time would have been significantly increased and surgical outcome could have been less optimal. Procedure: Patient was taken to the operating room. Placed under a general anesthetic and transferred to the operating table with the help of the assistant professor of business. With the help of the assistant professor of business patient was prepped and padded for surgery. Operative side foot was well-padded and placed in the traction boot. Uninjured lower extremity was abducted and flexed out of harms way. CAMI hose and SCDs utilized. Fluoroscopy was brought in. With the help of the assistant professor of business and manipulation of the limb, reduction was nicely obtained as verified under AP lateral and oblique fluoroscopic images. . Operative hip/thigh was prepped padded draped in usual orthopedic sterile fashion for the procedure. Longitudinal incision was made just proximal to the greater trochanter. Taken through skin and subcutaneous tissue. Sharp awl was placed on the tip of the greater trochanter. Position verified under AP and lateral fluoroscopic images. This was then taken down inside the bone. Slightly bent ball-tipped guide yajaira was then placed from the tip of the greater trochanter into the intra-medullary canal of the femur. Its position verified radiographically. Measuring done for nail length. Reamer was then done over the tip of this with the help of the assistant professor of business holding the soft tissue protector appropriately. Distal reaming was carried out to 12-1/2 mm diameter. Once reaming was done we placed the long 125? angle device over the guidepin. This was easily introduced. Guide yajaira removed. Outrigger device was utilized to position a guidepin from the lateral cortex of the femur across the fracture site and into the femoral head in a good position centrally, as noted on AP lateral and oblique fluoroscopic images. This was measured. Appropriate reaming done. Appreciate length lag screw was placed from the lateral cortex of the femur into the femoral head. A small amount of the screw was noted to be protruding laterally as planned. No cartilage penetration of the femoral head noted on any x-ray. Fracture was then compressed with the outrigger device. Proximal cap screw was seated down compl etely tightened, confirmed, and then loosened one fourth turn. Record device removed. Distal cross locking screw placed under standard technique with the help of fluoroscopy. Screw placed in slotted hole to allow for compression if needed. This was confirmed to be of adequate length in good position on AP and lateral images. Final set of AP and lateral proximal x-rays taken and saved. Incisions thoroughly irrigated. Closing by the assistant professor of business with deep 0 Vicryl, mid layer 0 Vicryl, inverted 2-0 Vicryl, skin jeremiah. Puncture wounds closed with inverted 2-0 Vicryl and jeremiah. Xeroform 4 x 4's ABD tape applied. Patient was awoken from their anesthetic, transferred back to their own bed with the help of the assistant professor of business and into recovery room in satisfactory condition. Patient will continue to be admitted to the hospital under the hospitalist service. We will plan Eliquis 2.5 mg twice daily for 2 weeks. Followed by aspirin 81 mg twice a day for a month. Will allow her to be weightbearing as tolerated. Follow-up in the orthopedic office in 2 weeks. This note was generated with [employer] dictation software. It may contain incorrect words, spelling, and punctuation that were not noted in checking the note before signing. Surgical Findings: Hip fracture Complications Complications: No Admit VTE Documentation VTE Present on Admission: No VTE Mechan Device Prophylaxis: SCD's and Knee High CAMI Hose VTE Pharm Prophylaxis ordered?: Yes
--- NOTE | 2025-07-03 10:00 | EKG12_ITS ---
Test Reason : ARRYTH Blood Pressure : */* mmHG Vent. Rate : 92 BPM Atrial Rate : 92 BPM P-R Int : 152 ms QRS Dur : 74 ms QT Int : 340 ms P-R-T Axes : 11 17 89 degrees QTcB Int : 420 ms Sinus rhythm with Premature atrial complexes Possible Inferior infarct , age undetermined Possible Anterior infarct , age undetermined Abnormal ECG Confirmed by SEMAJ GARCIA, YASMIN ([id number]), supervising editor news reel SAMIA CASTRO ([id number]) on 07/05/2025 7:58:12 AM Referred By: RANDI Confirmed By: YASMIN CHA MD
--- NOTE | 2025-07-03 10:36 | EKG12_ITS ---
Test Reason : POST OP Blood Pressure : */* mmHG Vent. Rate : 87 BPM Atrial Rate : 87 BPM P-R Int : 158 ms QRS Dur : 68 ms QT Int : 402 ms P-R-T Axes : -6 17 47 degrees QTcB Int : 483 ms Normal sinus rhythm Normal ECG When compared with ECG of 02-Jul-2025 12:10, MANUAL COMPARISON REQUIRED DATA IS UNCONFIRMED Confirmed by SEMAJ GARCIA, YASMIN ([id number]), acquisitions editor SAMIA CATSRO ([id number]) on 07/04/2025 12:59:16 PM Referred By: LAURENCE Confirmed By: YASMIN CHA MD
--- NOTE | 2025-07-03 11:16 | PCM.POST.ANE ---
Anesthesia: Postop Eval I Current Vital Signs Temperature: 97 F Pulse Rate: 97 Blood Pressure: 112/96 Respiratory Rate: 18 Pulse Ox: 97 Oxygen Delivery Method: Nasal Cannula Oxygen Flow Rate (L/min): 4 Assessment Airway patent: Yes Spontaneous unlabored respirations: Yes Mental status: Awake nausea: Yes Vomiting: No Anesthesia Complication: No Fluid Hydration Crystalloid volume administer (ml): 400 Total IV fluid infused: 400 Progress Note Post-operative progress note: short run vtach in OR (12-15 beat run). post op ekg wnl. Dr. Demarco lemus. Anesthesia document: Postop Eval 1 completed: Yes
--- NOTE | 2025-07-03 11:19 | PCM.POSTANE2 ---
Anesthesia Postop Eval I Sum Postop Eval Completion status Anesthesia document: Postop Eval 1 completed: Yes Anesthesia Postop Eval I Summary Anesthesia Postop Eval I Summary: Anesthesia Postop Eval I: Assessment Summary Airway patent Yes 07/03/25 11:19 Spontaneous unlabored Yes 07/03/25 11:19 respirations Mental status Awake 07/03/25 11:19 nausea Yes 07/03/25 11:19 Vomiting No 07/03/25 11:19 Anesthesia Postop Eval I: Fluid Summary Crystalloid volume administer 400 07/03/25 11:19 (ml) Colloids volume administered ( ml) Blood Product volume administered (ml) Total IV fluid infused 400 07/03/25 11:19 Anesthesia Postop Eval I: Summary Notes Anesthesia Complication No 07/03/25 11:19 Anesthesia Complication Comment: Post-operative progress note short run vtach in 07/03/25 11:19 OR (12-15 beat run). post op ekg wnl. Dr. Pal aware. Anesthesia: Postop Eval II Evaluation Mental status: Awake Pain Level: 0 nausea: Yes Vomiting: No
[2025-07-03] MEDS: 0.9% Normal Saline (250mL Bag) 250 ML 15 ML IV (12:30)
[2025-07-03] MEDS: Senna/Docusate Sodium 1 Tablet 2 TABLET PO ×2 (13:19→20:14)
--- NOTE | 2025-07-03 16:01 | PCM.PN.HOSP ---
Reason for Visit Chief Complaint: Right hip pain Subjective Subjective Patient was seen and examined today, she underwent long gamma nail insertion into the right hip for stabilization (ORIF). Anesthesia called me and told me that during the procedure she had a short run of V. tach but it was not captured on a telemetry strip. I tried to reach the patient's niece to discuss her CODE STATUS but there was no answer. Objective Data Objective Data Vital Signs: Vital Signs Temp Pulse Resp BP Pulse Ox O2 Del Method O2 Flow Rate 98 F 81 18 155/65 H 97 Nasal Cannula 2 07/03/25 14:07/03/25 14:07/03/25 14:07/03/25 14:07/03/25 14:07/03/25 14:07/03/25 14:09 Oxygen Flow Rate (L/min) 2 Oxygen Delivery Method Nasal Cannula Weight: 45.178 kg Body Mass Index (BMI) 19.5 Intake & Output: Intake and Output for Last 24 Hours 07/01/25 07/02/25 07/03/25 23:59 23:59 23:59 Intake Total 100 / 100 100 / 100 Output Total 400 / 400 Balance 100 / 100 -300 / -300 Lab / Micro Data 07/03/25 05:11 07/03/25 05:11 Labs: Laboratory Results - last 24 hr 07/02/25 12:25: Sodium 140, Potassium 3.9, Chloride 103, Carbon Dioxide 22.7, Anion Gap 13, BUN 13, Creatinine 1.07, Estim Creat Clear Calc 27.61 L, Est GFR (MDRD) Non-Af 51 L, BUN/Creatinine Ratio 11.8, Glucose 107 H, Calcium 9.4, Total Bilirubin 0.45, AST 51 H, ALT 31, Alkaline Phosphatase 131 H, Total Protein 7.2, Albumin 4.0, Globulin 3.2, Albumin/Globulin Ratio 1.2, Vitamin D 25-Hydroxy 66.3 07/03/25 05:11: WBC 7.2, RBC 3.54 L, Hgb 8.5 L, Hct 28.3 L, MCV 79.9 L, MCH 24.0 L, MCHC 30.0 L, RDW Std Deviation 54.4 H, RDW Coeff of Adonis 18.7 H, Plt Count 218, MPV 12.4 H, Immature Gran % (Auto) 0.100, Neut % (Auto) 44.0 L, Lymph % (Auto) 37.3, [place] % (Auto) 17.3 H, Eos % (Auto) 0.7, Baso % (Auto) 0.6, Absolute Neuts (auto) 3.2, Absolute Lymphs (auto) 2.69, Nucleated RBC % 0, Sodium 137, Potassium 3.8, Chloride 100, Carbon Dioxide 27.8, Anion Gap 9, BUN 15, Creatinine 0.99, Estim Creat Clear Calc 29.63 L, Est GFR (MDRD) Non-Af 56 L, BUN/Creatinine Ratio 15.3, Glucose 111 H, Calcium 8.6, TSH 1.530 Radiography Diagnostic Testing: Radiology Impression Hip X-Ray 07/03/25 07:00 IMPRESSION: Fluoroscopic guidance was used intraoperatively. Please refer to the operative note for further details. Reading Location: [facility] Rhythm Strip Rhythm Strip: Sinus Rhythm Rate: 70 Ectopy: None Physical Exam Const alert and no apparent distress Constitutional Narrative: Patient is awake but somewhat lethargic, she is confused General Appearance: cooperative, well kempt and well developed Orientation / Consciousness: awake and confused HEENT normocephalic, head/scalp atraumatic and moist oral mucous membranes Eyes PERRL, EOMs intact bilaterally and conjunctivae normal Neck supple, no JVD and thyroid normal General: trachea midline Resp normal respiratory effort Resp Narrative: Patient has scattered expiratory rhonchi bilaterally Auscultation: rhonchi throughout; Negative for rales or wheezes Cardio regular rate, regular rhythm, S1 normal heart sound, S2 normal heart sound, no murmurs, no rub and no gallops Cardio Narrative: Heart rate and rhythm is tachycardic GI normal to inspection, nondistended, normoactive bowel sounds, soft to palpation, non-tender and non-distended Extremity no clubbing, cyanosis or edema Skin no rashes or lesions noted General Skin Exam: no breakdown Neuro CN's II-XII intact bilaterally Neuro Narrative: Patient is confused Sensorium / Orientation: awake and oriented to person Psych affect normal Assessment & Plan Assessment/Plan (1) Closed fracture of right hip: QUALIFIERS: Encounter type: initial encounter Qualified Code(s): S72.001A - Fracture of unspecified part of neck of right femur, initial encounter for closed fracture PLAN: Plan 1. Right intertrochanteric fracture secondary to osteoporosis postop day 0 ORIF with gamma nail-patient will be seen by PT and OT, it is likely she will need short-term skilled services when released in the hospital. #2 cardiac arrhythmias-again anesthesia stated that the patient had a brief run of V. tach which was asymptomatic, patient will be monitored on telemetry on [employer] in the Air 3 #3 chronic obstructive pulmonary disease-patient will be given aerosol treatments, pulse ox will be monitored #4 Alzheimer's dementia-complicates care, management, recovery, and prognosis #5 hypothyroidism-patient is on Synthroid #6 coronary artery disease-patient is on a beta-kiara and aspirin #7 essential hypertension-patient will remain on her present medications, blood pressure will be monitored Total clinical time spent by myself addressing the patient's medical issues, reviewing all of her data, and collaborating with patient's care team: 35 minutes Charges/Coding Visit Charges Inpatient E&M: 88330 Subs Hosp L2
[2025-07-03] MEDS: Cefazolin 1 GM/50 ML BAG IV (17:12)
[2025-07-03] MEDS: Ensure Surgery 237 ML LIQUID PO (17:16)
--- NOTE | 2025-07-03 18:27 | NURSING ---
1815 notified patient is pulling off cardiac leads and refusing to wear monitor. Toma Schneider RN
--- NOTE | 2025-07-03 18:28 | NURSING ---
182 Change of care noted-ok to leave off rn cardiac Toma Schneider RN
[2025-07-04] VITALS (9 sets, daily range): BP systolic 94–160; BP diastolic 47–93; PULSE 71–87; RESP 16–18; TEMP 36.5–36.8; O2SAT 88–96
[2025-07-04] MEDS: Cefazolin 1 GM/50 ML BAG IV (00:52)
[2025-07-04] MEDS: 0.9% Normal Saline (250mL Bag) 250 ML 15 ML IV (00:52)
[2025-07-04 06:49] LABS: Hematocrit 27.0 % (37-47); Hemoglobin 8.4 g/dL (12.0-15.0); Immature Granulocytes Count 0.020 X10^3/uL (0.0-0.0); Mean Corp Hgb Conc 31.1 g/dL (32-36); Mean Corpuscular Volume 78.0 fL (81-99); Mean Platelet Vol. 12.5 fl (6.2-12.0); NRBC Flagged by Analyzer 0 % (0-5); Platelet Count 204 K/mm3 (150-450); RBC Distribution Width CV 18.5 % (11.6-14.6); RBC Distribution Width SD 51.3 fl (35.1-43.9); Red Blood Count 3.46 M/mm3 (4.2-5.4); White Blood Count 10.3 K/mm3 (4.4-11.0)
[2025-07-04 07:13] LABS: Anion Gap 12 (5-15); BUN 14 mg/dL (4-19); BUN/Creat Ratio 17.5 RATIO (10-20); Calcium,Total 8.8 mg/dL (7.6-11.0); Carbon Dioxide 25.1 mmol/L (21.0-32.0); Chloride 99 mmol/L (98-108); Estimated Creatinine Clearance 35.77 ml/min (50-250); Glucose 98 mg/dL (70-99); Potassium 3.8 mmol/L (3.3-5.1)
[2025-07-04] MEDS: Aspirin E.C. 81 MG Tablet PO (08:52)
[2025-07-04] MEDS: Ensure Surgery 237 ML LIQUID PO (08:52)
[2025-07-04] MEDS: APIXABAN 2.5 MG TABLET (WCH) PO ×2 (08:53→19:58)
[2025-07-04] MEDS: Senna/Docusate Sodium 1 Tablet 2 TABLET PO ×2 (08:53→19:57)
--- NOTE | 2025-07-04 09:27 | NURSING ---
called pcp office requested home med list be faxed.
--- NOTE | 2025-07-04 09:32 | PN.ORTHO_ITS ---
Subjective Subjective Patient is a history of dementia, COPD, hypertension, coronary artery disease, cardiac arrhythmias s/p postop day 1 open reduction internal fixation right hip fracture with long gamma nail. Patient resting comfortably in bed. Rates pain [ ]/ 10 at rest. With movement [ ] /10. States taking Tylenol and oxycodone as needed and ice help to relieve pain. Patient has been up with therapy. Walking with the assit of a walker. Weightbearing as tolerated. Afebrile, no chest pain, shortness of breath, negative calf pain/ erythema, and no other signs of DVT. Objective Data Objective Data Vital Signs: Vital Signs Temp Pulse Resp BP Pulse Ox O2 Del Method O2 Flow Rate 97.7 F L 74 16 148/73 H 88 Room Air 2 07/04/25 08:03 07/04/25 08:53 07/04/25 08:03 07/04/25 08:03 07/04/25 08:07 07/04/25 08:07 07/04/25 08:03 Oxygen Flow Rate (L/min) 2 Oxygen Delivery Method Room Air Weight: 45.178 kg Body Mass Index (BMI) 19.5 Intake & Output: Intake and Output for Last 24 Hours 07/02/25 07/03/25 07/04/25 23:59 23:59 23:59 Intake Total 100 / 100 398.75 / 398.75 657.75 / 657.75 Output Total 600 / 600 300 / 300 Balance 100 / 100 -201.25 / -201.25 357.75 / 357.75 Lab / Micro Data 07/04/25 05:49 07/04/25 05:49 Labs: Laboratory Results - last 24 hr 07/04/25 05:49: WBC 10.3, RBC 3.46 L, Hgb 8.4 L, Hct 27.0 L, MCV 78.0 L, MCH 24.3 L, MCHC 31.1 L, RDW Std Deviation 51.3 H, RDW Coeff of Adonis 18.5 H, Plt Count 204, MPV 12.5 H, Immature Gran % (Auto) 0.200, Neut % (Auto) 72.9 H, Lymph % (Auto) 15.9 L, [place] % (Auto) 10.1 H, Eos % (Auto) 0.7, Baso % (Auto) 0.2, Absolute Neuts (auto) 7.5, Absolute Lymphs (auto) 1.63, Nucleated RBC % 0, Sodium 136, Potassium 3.8, Chloride 99, Carbon Dioxide 25.1, Anion Gap 12, BUN 14, Creatinine 0.82, Estim Creat Clear Calc 35.77 L, Est GFR (MDRD) Non-Af 70, BUN/Creatinine Ratio 17.5, Glucose 98, Calcium 8.8 Radiography Diagnostic Testing: Radiology Impression Hip X-Ray 07/03/25 07:00 IMPRESSION: Fluoroscopic guidance was used intraoperatively. Please refer to the operative note for further details. Reading Location: [facility] Rhythm Strip Rhythm Strip: Sinus Rhythm Rate: 70 Ectopy: None Physical Exam Narrative Patient resting comfortably in bed No signs of acute distress Satting well on room air Limb is warm to touch, Sensation intact throughout entire lower extremity, including saphenous, sural, superficial and deep peroneal, and tibial distribution. DP/PT pulses bounding. Dorsiflexion plantarflexion strength 5/5 Dressing clean dry intact Calf nontender to palpation, no erythema, no edema. Negative Homans Assessment & Plan Assessment/Plan (1) Closed fracture of right hip: QUALIFIERS: Encounter type: initial encounter Qualified Code(s): S72.001A - Fracture of unspecified part of neck of right femur, initial encounter for closed fracture PLAN: 1. Will continue PT today. Weightbearing as tolerated 2. plan for discharge per primary. Okay from an orthopedic standpoint. 3. Patient will follow up for post op appointment in 2 weeks this will need to be arranged 4. Patient has would likely be placed for inpatient therapy or skilled. 5. WBC 10.3 no acute reactive leukocytosis 6. H/H 8.4/27.0: post operavtive anemia secondary to acute blood loss intraoperatively. Management per primary. 7. DVT prophylaxis : Eliquis 2.5 mg twice daily for 2 weeks followed by aspirin 81 mg twice daily for a month. 8. Pain control: patient instructed to take tylenol 500mg 2 tablets TID. and oxycodone 1-2 tablets every 4-6 hours only as needed for pain control. 9. ok to remove post op dressing. post op day 5
--- NOTE | 2025-07-04 12:25 | CASEMGMT ---
Discharge Planning A list of?SNF providers including quality and resource use data and consistent with the patient's preferred geographic region, medical needs, and insurance network was created in [employer] Guide.? This list was provided to the SW. Larissa Rodrigues Discharge Planning Asst.
--- NOTE | 2025-07-04 12:54 | CASEMGMT ---
RN CM Assessment Face to Face with patient for initial transition planning/care coordination assessment. RN CM introduced self and role at [facility]. Pt is A&Ox1 to self only and is disoriented. There is no family @ bedside. Per nursing, pt's is currently in poor health and is [place] and cannot be talked to on the phone. TC to the pt's daughter, Naheed. No answer, unable to leave as mailbox is full. TC to the pt's Niece, Irma @ [phone], who is agreeable to answering this RN CM questions and assisting with DC planning. Care providers, pharmacy, and demographics verified. Admitting dx: Right Hip Fracture LACE Strata: 3 PCP: Wayne Conde Specialists: Radio Dispatcher out of [facility] Pharmacy:[facility] [place] Insurance: [employer] A/B, [employer], [place] Prescription Benefit: Yes LNOK: Sameer (H), Naheed (Daughter), Irma (Niece) Living Arrangements: Pt lives with her in a single story home with 2 steps to enter ADLs/IADLs: irma states that the pt is mainly indep at baseline. Irma states that the pt is active with [facility] and also skilled HHC for home assistance. Irma is unsure of the CM or the name of the HHC agency. Irma states that she believes that the pt has a home health provider 3x/week. MS3 CM/SW to follow. Transportation: Reports pt's used to drive the pt but does not any longer. Irma and Naheed are able to help transport DME: [employer]. Declines medical alert system and states that the pt would not be able to use it appropriately. HHC/SNF: Hx @ [facility] and [facility]. See above regarding HHC Pt?s goal: TBD Plan: Anticipate SNF at the time of DC. See PT notes. Irma states that she has already talked to the pt's about DC planning and that they [facility] to [facility]. If [facility] unable to accept, Irma states that the only other SNF that Sameer wants the pt to attend is a SNF in [place] but Irma cannot recall the name at this time. Irma says that she can follow up on that. CM to follow. Irma denies any further questions or concerns at this time. Report given to MS3 LONDON QIU. Deborah Lua RN CM
--- NOTE | 2025-07-04 13:02 | CASEMGMT ---
Addendum entered by Corine Morton 07/04/25 14:35: SW received a message from [facility] that reports pt has medical alert button, receives 7 [employer] meals per week, and has aide services Mon-Fri 4 hrs/day. ZECHARIAH Guerrier Original Note: DAI received notice from RNCM that pt niece requesting referral to [facility] per family decision. DCA notified of referral request. Pt reported to have services through [facility]. DAI called and verified Itzel sharif CM. SW left a voicemail. DAI remains available to follow. ZECHARIAH Guerrier
--- NOTE | 2025-07-04 14:04 | CASEMGMT ---
Addendum entered by Larissa Rodrigues 07/05/25 12:24: Updates sent to [facility]. Pt has not been formally accepted/declined. Larissa Rodrigues DC Planning Asst. Original Note: Discharge Planning Referral sent to [facility] at [place]. Larissa Rodrigues DC Planning Asst.
--- NOTE | 2025-07-04 16:22 | PN.HOSP_ITS ---
Reason for Visit Chief Complaint: Right hip pain Objective Data Objective Data Vital Signs: Vital Signs Temp Pulse Resp BP Pulse Ox O2 Del Method O2 Flow Rate 98.2 F 71 16 96/51 L 96 Nasal Cannula 2 07/04/25 15:21 07/04/25 15:21 07/04/25 15:21 07/04/25 15:21 07/04/25 15:21 07/04/25 15:21 07/04/25 15:21 Oxygen Flow Rate (L/min) 2 Oxygen Delivery Method Nasal Cannula Weight: 99 lb 9.607 oz Body Mass Index (BMI) 19.5 Intake & Output: Intake and Output for Last 24 Hours 07/02/25 07/03/25 07/04/25 23:59 23:59 23:59 Intake Total 100 / 100 398.75 / 398.75 807.75 / 807.75 Output Total 600 / 600 300 / 300 Balance 100 / 100 -201.25 / -201.25 507.75 / 507.75 Lab / Micro Data 07/04/25 05:49 07/04/25 05:49 Labs: Laboratory Results - last 24 hr 07/04/25 05:49: WBC 10.3, RBC 3.46 L, Hgb 8.4 L, Hct 27.0 L, MCV 78.0 L, MCH 24.3 L, MCHC 31.1 L, RDW Std Deviation 51.3 H, RDW Coeff of Adonis 18.5 H, Plt Count 204, MPV 12.5 H, Immature Gran % (Auto) 0.200, Neut % (Auto) 72.9 H, Lymph % (Auto) 15.9 L, [place] % (Auto) 10.1 H, Eos % (Auto) 0.7, Baso % (Auto) 0.2, Absolute Neuts (auto) 7.5, Absolute Lymphs (auto) 1.63, Nucleated RBC % 0, Sodium 136, Potassium 3.8, Chloride 99, Carbon Dioxide 25.1, Anion Gap 12, BUN 14, Creatinine 0.82, Estim Creat Clear Calc 35.77 L, Est GFR (MDRD) Non-Af 70, BUN/Creatinine Ratio 17.5, Glucose 98, Calcium 8.8 Rhythm Strip Rhythm Strip: Sinus Rhythm Rate: 70 Ectopy: None Physical Exam Narrative Seen and examined. She had a right hip surgery yesterday with ORIF with long gamma nail. She had bowel movement yesterday. Needs to be related by PT Physical exam General: Alert, Oriented x3, Cooperative HEENT: Atraumatic, PERRLA, EOMI, Normocephalic. Oral: No Gingival or Mucosal Lesions/ Ulcerations Neck: Supple, No JVD, Negative Carotid Bruits Chest wall/Lungs: Air entry diminished in bilateral lung bases. No crepitation/rhonchi Cardiovascular: Regular rate and rhythm, Normal S1,S2, No M/G/R Abdomen: Bowel Sounds Present, Soft, Non Tender, Non-Distended : No dysuria. No renal angle tenderness. No suprapubic tenderness. Extremities: No edema, Capillary Refill Less than 3 Seconds Skin: Right hip surgical dressing is dry. Musculoskeletal: No Tenderness to Palpation of Joints or Extremities. ROM restricted on right hip. Neurological: Cranial nerves II-XII grossly intact, DTR 2+/4. No acute focal neurological deficit. Psych/Mental Status: Normal Affect, Appropriate. Assessment & Plan Assessment/Plan (1) Closed fracture of right hip: QUALIFIERS: Encounter type: initial encounter Qualified Code(s): S72.001A - Fracture of unspecified part of neck of right femur, initial encounter for closed fracture PLAN: Plan This is a 84-year-old female admitted after she had fall at home resulting into right intertrochanteric fracture. 1. Right intertrochanteric fracture secondary to osteoporosis: Patient had ORIF with long, nail on 07/03/2025. She had bowel movement yesterday. On a stool softener, pain control. PT and OT. DVT prophylaxis as per orthopedic surgeon. #2 cardiac arrhythmias-again anesthesia stated that the patient had a brief run of V. tach which was asymptomatic, patient will be monitored on telemetry on MedSur 3 #3 chronic obstructive pulmonary disease-patient will be given aerosol treatments, pulse ox is being monitored. No acute COPD exacerbation #4 Alzheimer's dementia-complicates care, management, recovery, and prognosis #5 hypothyroidism-patient is on Synthroid #6 coronary artery disease-patient is on a beta-kiara and aspirin #7 essential hypertension-patient will remain on her present medications, blood pressure is being monitored 8. Chronic anemia: Hemoglobin 8.4. Hold Plavix as patient already on aspirin and Eliquis 2.5 mg twice daily to avoid severe anemia. Patient also on sucralfate and pantoprazole for PUD DVT prophylaxis: On Eliquis 2.5 mg twice daily Patient is on multiple medications including calcium supplement, vitamin D resumed. Charges/Coding Visit Charges Inpatient E&M: 64246 Subs Hosp L2
[2025-07-05 05:56] VITALS: BP 145/57; PULSE 82; RESP 18; TEMP 36.4; O2SAT 93
[2025-07-05 05:58] LABS: Hematocrit 23.7 % (37-47); Hemoglobin 7.4 g/dL (12.0-15.0); Immature Granulocytes Count 0.020 X10^3/uL (0.0-0.0); Mean Corp Hgb Conc 31.2 g/dL (32-36); Mean Corpuscular Volume 78.5 fL (81-99); Mean Platelet Vol. 12.1 fl (6.2-12.0); NRBC Flagged by Analyzer 0 % (0-5); Platelet Count 185 K/mm3 (150-450); RBC Distribution Width CV 18.9 % (11.6-14.6); RBC Distribution Width SD 54.0 fl (35.1-43.9); Red Blood Count 3.02 M/mm3 (4.2-5.4); White Blood Count 9.0 K/mm3 (4.4-11.0)
[2025-07-05 06:30] LABS: Anion Gap 11 (5-15); BUN 27 mg/dL (4-19); BUN/Creat Ratio 23.2 RATIO (10-20); Calcium,Total 8.4 mg/dL (7.6-11.0); Carbon Dioxide 24.5 mmol/L (21.0-32.0); Chloride 100 mmol/L (98-108); Estimated Creatinine Clearance 24.86 ml/min (50-250); Glucose 81 mg/dL (70-99); Potassium 3.8 mmol/L (3.3-5.1)
[2025-07-05 09:50] VITALS: BP 151/85; PULSE 74; RESP 16; TEMP 36.9; O2SAT 98
[2025-07-05] MEDS: Senna/Docusate Sodium 1 Tablet 2 TABLET PO ×2 (10:00→20:56)
[2025-07-05] MEDS: Calcium Carb/Vitamin D 1 TABLET Tablet 2 TABLET PO (10:04)
--- NOTE | 2025-07-05 10:04 | PN.HOSP_ITS ---
Reason for Visit Chief Complaint: Right hip pain Objective Data Objective Data Vital Signs: Vital Signs Temp Pulse Resp BP Pulse Ox O2 Del Method O2 Flow Rate 98.4 F 74 16 151/85 H 98 Room Air 2 07/05/25 09:50 07/05/25 09:50 07/05/25 09:50 07/05/25 09:50 07/05/25 09:50 07/05/25 09:50 07/05/25 06:01 Oxygen Flow Rate (L/min) 2 Oxygen Delivery Method Room Air Weight: 99 lb 9.607 oz Body Mass Index (BMI) 19.5 Intake & Output: Intake and Output for Last 24 Hours 07/03/25 07/04/25 07/05/25 23:59 23:59 23:59 Intake Total 398.75 / 398.75 1007.75 / 1007.75 100 / 100 Output Total 600 / 600 500 / 500 150 / 150 Balance -201.25 / -201.25 507.75 / 507.75 -50 / -50 Lab / Micro Data 07/05/25 05:48 07/05/25 05:48 Labs: Laboratory Results - last 24 hr 07/05/25 05:48: WBC 9.0, RBC 3.02 L, Hgb 7.4 L, Hct 23.7 L, MCV 78.5 L, MCH 24.5 L, MCHC 31.2 L, RDW Std Deviation 54.0 H, RDW Coeff of Adonis 18.9 H, Plt Count 185, MPV 12.1 H, Immature Gran % (Auto) 0.200, Neut % (Auto) 58.3, Lymph % (Auto) 25.6, [place] % (Auto) 13.5 H, Eos % (Auto) 2.2, Baso % (Auto) 0.2, Absolute Neuts (auto) 5.2, Absolute Lymphs (auto) 2.29, Nucleated RBC % 0, Sodium 135, Potassium 3.8, Chloride 100, Carbon Dioxide 24.5, Anion Gap 11, BUN 27 H, Creatinine 1.18, Estim Creat Clear Calc 24.86 L, Est GFR (MDRD) Non-Af 45 L, B UN/Creatinine Ratio 23.2 H, Glucose 81, Calcium 8.4 Rhythm Strip Rhythm Strip: Sinus Rhythm Rate: 70 Ectopy: None Physical Exam Narrative Seen and examined. She had a right hip surgery with ORIF with long gamma nail. She had bowel movement yesterday. Complain of pain over her right hip. Physical exam General: Alert, Oriented x3, Cooperative HEENT: Atraumatic, PERRLA, EOMI, Normocephalic. Oral: No Gingival or Mucosal Lesions/ Ulcerations Neck: Supple, No JVD, Negative Carotid Bruits Chest wall/Lungs: Air entry diminished in bilateral lung bases. No crepitation/rhonchi Cardiovascular: Regular rate and rhythm, Normal S1,S2, No M/G/R Abdomen: Bowel Sounds Present, Soft, Non Tender, Non-Distended : No dysuria. No renal angle tenderness. No suprapubic tenderness. Extremities: No edema, Capillary Refill Less than 3 Seconds Skin: Right hip surgical dressing is dry. Musculoskeletal: No Tenderness to Palpation of Joints or Extremities. ROM restricted on right hip. Neurological: Cranial nerves II-XII grossly intact, DTR 2+/4. No acute focal neurological deficit. Psych/Mental Status: Flat affect, dementia. Assessment & Plan Assessment/Plan (1) Closed fracture of right hip: QUALIFIERS: Encounter type: initial encounter Qualified Code(s): S72.001A - Fracture of unspecified part of neck of right femur, initial encounter for closed fracture PLAN: Plan This is a 84-year-old female admitted after she had fall at home resulting into right intertrochanteric fracture. 1. Right intertrochanteric fracture secondary to osteoporosis: Patient had ORIF with long, nail on 07/03/2025. She had bowel movement yesterday. On a stool softener, pain control. PT and OT. DVT prophylaxis as per orthopedic surgeon. 07/05: She noted bowel movement for 2-3 days. Dulcolax and MiraLAX ordered. Patient already on senna S. #2 cardiac arrhythmias-again anesthesia stated that the patient had a brief run of V. tach which was asymptomatic, patient will be monitored on telemetry on MedCutefundr 3 #3 chronic obstructive pulmonary disease-patient will be given aerosol treatments, pulse ox is being monitored. No acute COPD exacerbation #4 Alzheimer's dementia-complicates care, management, recovery, and prognosis #5 hypothyroidism-patient is on Synthroid #6 coronary artery disease-patient is on a beta-kiara and aspirin #7 essential hypertension-patient will remain on her present medications, blood pressure is being monitored 8. Chronic anemia: Hemoglobin 8.4. Hold Plavix as patient already on aspirin and Eliquis 2.5 mg twice daily to avoid severe anemia. Patient also on sucralfate and pantoprazole for PUD Acute anemia on chronic anemia to 7.4, baseline hemoglobin is between 9 to 10 g, last one 10.5 on 07/02. Hold Eliquis and baby aspirin. DVT prophylaxis: On Eliquis 2.5 mg twice daily Patient is on multiple medications including calcium supplement, vitamin D resumed. Charges/Coding Visit Charges Inpatient E&M: 95288 Subs Hosp L2
[2025-07-05 10:05] VITALS: BP 151/85; PULSE 74
[2025-07-05] MEDS: Sodium Ferric Gluconat/Sucrose 250 MG in 0.9% Normal Saline (250mL Bag) 250 ML 135 MG IV (10:40)
--- NOTE | 2025-07-05 12:38 | CASEMGMT ---
Social Work- SW met with pt and Naheed, pt dtr. SW provided education on pt care needs, LTC vs skilled, and coverage of stays for various levels of care. Naheed shared that [facility] in [place] is alternate choice of [facility]. Naheed reports that she does not believe that pt has money for LTC and would qualify for LTC [facility]. Naheed reports that pt spouse is not able to care for himself, but he and pt had aides at home. Naheed agreeable to [facility] evaluating pt for appropriateness; if declined, Naheed requests referral to alternate choice. Naheed agreeable to looking at memory care units if needed following alternate choice for referral. DCA updated. DAI remains available to follow. ZECHARIAH Guerrier
--- NOTE | 2025-07-05 16:28 | CASEMGMT ---
Addendum entered by Larissa Rodrigues 07/06/25 08:18: [facility]. SW updated. Larissa Rodrigues DC Planning Asst. Original Note: Discharge Planning Referral sent to [facility] in [place]. Larissa Rodrigues DC Planning Asst.
[2025-07-05 16:35] VITALS: BP 136/89; PULSE 86; RESP 18; TEMP 36.6; O2SAT 95
[2025-07-05 20:16] LABS: Hematocrit 26.8 % (37-47); Hemoglobin 8.4 g/dL (12.0-15.0)
[2025-07-05 20:47] VITALS: BP 136/76; PULSE 99; RESP 15; TEMP 36.3; O2SAT 97
[2025-07-05 20:55] VITALS: BP 136/76; PULSE 99
[2025-07-05] MEDS: Polyethylene Glycol 3350 17 GM PACKET PO (21:06)
[2025-07-06 04:30] VITALS: BP 130/74; PULSE 79; RESP 15; TEMP 36.6; O2SAT 97
[2025-07-06 06:55] LABS: Hematocrit 26.3 % (37-47); Hemoglobin 8.2 g/dL (12.0-15.0); Immature Granulocytes Count 0.030 X10^3/uL (0.0-0.0); Mean Corp Hgb Conc 31.2 g/dL (32-36); Mean Corpuscular Volume 78.5 fL (81-99); Mean Platelet Vol. 11.4 fl (6.2-12.0); NRBC Flagged by Analyzer 0 % (0-5); Platelet Count 248 K/mm3 (150-450); RBC Distribution Width CV 19.1 % (11.6-14.6); RBC Distribution Width SD 53.4 fl (35.1-43.9); Red Blood Count 3.35 M/mm3 (4.2-5.4); White Blood Count 9.1 K/mm3 (4.4-11.0)
[2025-07-06 07:08] LABS: Anion Gap 9 (5-15); BUN 27 mg/dL (4-19); BUN/Creat Ratio 28.8 RATIO (10-20); Calcium,Total 8.6 mg/dL (7.6-11.0); Carbon Dioxide 26.4 mmol/L (21.0-32.0); Chloride 100 mmol/L (98-108); Estimated Creatinine Clearance 31.21 ml/min (50-250); Glucose 97 mg/dL (70-99); Potassium 4.2 mmol/L (3.3-5.1)
[2025-07-06] MEDS: Polyethylene Glycol 3350 17 GM PACKET PO (08:32)
[2025-07-06 08:33] VITALS: PULSE 88
[2025-07-06] MEDS: Senna/Docusate Sodium 1 Tablet 2 TABLET PO (08:34)
[2025-07-06] MEDS: Calcium Carb/Vitamin D 1 TABLET Tablet 2 TABLET PO (08:34)
[2025-07-06 09:00] VITALS: BP 114/63; PULSE 75; RESP 16; TEMP 36.6; O2SAT 98
--- NOTE | 2025-07-06 10:40 | CASEMGMT ---
Addendum entered by Corine Morton 07/06/25 12:55: [facility]. SW updated Naheed, pt dtr. Hospitalist updated. DCA updated. Plan: [facility]; skilled level of care ZECHARIAH Guerrier Addendum entered by Corine Morton 07/06/25 11:16: DAI met with pt and Juan A. Naheed was available via telephone. Juan A will discuss visit with clinical team and update with a decision. Naheed is off work now and available by phone. DAI remains available to follow. ZECHARIAH Guerrier Original Note: Social Work- SW received notice that [facility] will complete onsite today at 11-11:30. Pt dtr Naheed updated and will plan to be present during onsite. Naheed updated that [place] [facility] accepted; Naheed would like to wait to see if [facility] accepts. DCA notified. ZECHARIAH Guerrier
--- NOTE | 2025-07-06 11:06 | PCM.TXEXTCAR ---
Diet Diet Order/Speech Therapy: INPATIENT Hospital Diet / Speech Therapy Order(s) 07/04/25 08:52 Diet: Regular - General Food consistency:: Regular Liquid Consistency:: Regular/Thin Type of Dietary Supplement:: Magic Cup Dessert Diet Comments: magic cup with lunch and dinner Routine Orders/Code Status Suppository Type: Dulcolax 10mg Suppository Frequency: Daily PRN DC O2, CPAP, BIPAP needs Home O2 Discharge instructions: Yes Type of respiratory needs?: Oxygen Oxygen frequency: Continuous Continuous oxygen liters per minute: 2 Wound(s) RIGHT HIP: Wound Type: Surgical Incision Therapies Extremity Affected:: Bilateral Lower Physical Therapy: Eval and Treat Occupational Therapy: Eval and Treat Speech Therapy: Eval and Treat Problem/Diagnosis (1) Closed fracture of right hip: Status: Acute Code(s): S72.001A - Fracture of unspecified part of neck of right femur, initial encounter for closed fracture Plan This is a 84-year-old female admitted after she had fall at home resulting into right intertrochanteric fracture. 1. Right intertrochanteric fracture secondary to osteoporosis: Patient had ORIF with long, nail on 07/03/2025. She had bowel movement yesterday. On a stool softener, pain control. PT and OT. DVT prophylaxis as per orthopedic surgeon. 07/05: She noted bowel movement for 2-3 days. Dulcolax and MiraLAX ordered. Patient already on senna S. #2 cardiac arrhythmias-again anesthesia stated that the patient had a brief run of V. tach which was asymptomatic, patient will be monitored on telemetry on [facility] 3 #3 chronic obstructive pulmonary disease-patient will be given aerosol treatments, pulse ox is being monitored. No acute COPD exacerbation #4 Alzheimer's dementia-complicates care, management, recovery, and prognosis #5 hypothyroidism-patient is on Synthroid #6 coronary artery disease-patient is on a beta-kiara and aspirin #7 essential hypertension-patient will remain on her present medications, blood pressure is being monitored 8. Chronic anemia: Hemoglobin 8.4. Hold Plavix as patient already on aspirin and Eliquis 2.5 mg twice daily to avoid severe anemia. Patient also on sucralfate and pantoprazole for PUD Acute anemia on chronic anemia to 7.4, baseline hemoglobin is between 9 to 10 g, last one 10.5 on 07/02. Hold Eliquis and baby aspirin. DVT prophylaxis: On Eliquis 2.5 mg twice daily Patient is on multiple medications including calcium supplement, vitamin D resumed. Allergies/Procedures Done in Hospital Allergies codeine Allergy (Verified 03/09/25 09:40) Rash Type of Care/Length of Stay Estimated LOS: Convalescent Care Less Than 30 days Type of Care Needed: Skilled Rehab Potential: Good Prognosis: Good Additional Orders/Day of Discharge Day of Discharge: 07/06/25 Dietary and Speech Recommendations Dietitian Recommendations/Changes: Continue regular diet. Will discontinue 237ml ensure surgery TID with medpass and order 120ml EPHP 4x daily with medpass. Will order magic cup with lunch and dinner. Will monitor weight trends. Discharge Plan Admission Admit Date/Time: 07/02/25 15:40 Attending Provider: Tan Triplett Primary Care Provider: Wayne Conde Consulting Providers: Vincent Cool; Sebastián Lua; Priyank Bauer Discharge Orders/Prescriptions Prescriptions: New Eliquis 5 mg Tablet 2.5 mg PO BID 30 Days Qty: 30 0RF Rx Instructions: Discontinue if platelet count drops less than 50,000 or hemoglobin less than 8 g% sennosides-docusate sodium [Stimulant Laxative Plus] 8.6-50 mg Tablet 2 tab PO BID Qty: 0 0RF Continued aluminum-magnesium hydroxide 225-200 mg/5 mL suspension 30 ml PO Q4H PRN (Reason: heart burn) bisacodyl 10 mg suppository 10 mg [place] QDAY PRN (Reason: constipation) omega-3 fatty acids 1,000 mg capsule 3,000 mg PO QDAY mineral oil [Fleet Mineral Oil] Enema 118 ml [place] QDAY PRN (Reason: constipation) Rx Instructions: discard any unused portion glucagon HCl [Glucagon (HCl) Emergency Kit] 1 mg recon soln 1 mg subcut Q20M PRN Rx Instructions: until target blood sugar attained dextrose [Glucose Gel] 40 % gel 10 g PO Q15M PRN Rx Instructions: until symptoms of low blood sugar are controlled mirtazapine 15 mg tablet 7.5 mg PO QHS pantoprazole 40 mg tablet,delayed release (DR/EC) 40 mg PO QHS gabapentin 300 mg capsule 300 mg PO BID donepezil 5 mg tablet 5 mg PO QHS isosorbide mononitrate 60 mg tablet extended release 24 hr 60 mg PO DAILY levothyroxine 50 mcg tablet 50 mcg PO DAILY acetaminophen 500 mg tablet 1,000 mg PO Q8 PRN (Reason: Pain 1-5/10 or Fever) Qty: 10 0RF Rx Instructions: For pain calcium carbonate-vitamin D3 [Oyster Shell Calcium-Vit D3] 500 mg-5 mcg (200 unit) tablet 2 tab PO DAILY atorvastatin 80 mg tablet 80 mg PO .hs cyanocobalamin (vitamin B-12) 1,000 mcg tablet 1,000 mcg PO DAILY ergocalciferol (vitamin D2) 1,250 mcg (50,000 unit) capsule 1,250 mcg PO .fri fluticasone propionate 220 mcg/actuation HFA aerosol inhaler 1 puff inhalation BID losartan 25 mg tablet 25 mg PO DAILY sucralfate 1 gram tablet 1 g PO BIDAC Rx Instructions: 1 tab in the morning and 1 tab in the evening. take before meals tiotropium bromide 18 mcg capsule, w/inhalation device 1 cap inhalation DAILY tramadol 50 mg tablet 50 mg PO Q8H PRN (Reason: pain) 3 Days Qty: 7 0RF albuterol sulfate 0.63 mg/3 mL solution for nebulization 0.63 mg continuous nebulization Q6H PRN (Reason: shortness of breath or wheezing) Patient Comments: [NO ORIGINAL SIG] calcium carbonate [Calcium 600] 600 mg calcium (1,500 mg) tablet 600 mg PO DAILY metoprolol tartrate 50 mg tablet 50 mg PO BID guaifenesin 400 mg PO TID guaifenesin [Adult Tussin Chest Congestion] 100 mg/5 mL liquid 200 mg PO Q4H PRN (Reason: congestion) magnesium hydroxide [Milk of Magnesia] 400 mg/5 mL suspension 30 ml PO DAILY PRN (Reason: constipation) acetaminophen 650 mg suppository 650 mg [place] Q4H magnesium oxide [MagOx] 400 mg (241.3 mg magnesium) tablet 400 mg PO BID Held aspirin 81 mg tablet,delayed release (DR/EC) 81 mg PO DAILY Hold Instructions: Hold while taking Eliquis. clopidogrel 75 mg tablet 75 mg PO DAILY Hold Instructions: Hold while taking Eliquis. Patient has severe anemia Rx Instructions: daily at 17:00 Discontinued acetaminophen 325 mg capsule 650 mg PO Q4H PRN (Reason: fever) Referrals / Follow Up: Wayne Conde DO [Primary Care Provider] - Within 2 Weeks Sebastián Lua MD [Med Staff - Active Staff] - Within 2 Weeks Disposition Discharge Orders: Discharge Patient (Routine); Ordered 07/06/25 Ordered By: Dr. Tan Triplett (1) Closed fracture of right hip Qualifiers: Encounter type: initial encounter Qualified Code(s): S72.001A - Fracture of unspecified part of neck of right femur, initial encounter for closed fracture
--- NOTE | 2025-07-06 12:16 | DS.PCM_ITS ---
Providers Date of Admission: 07/02/25 Date of Discharge: 07/06/25 Primary Care Physician: Dr. Wayne Conde, Consultations 07/02/25 16:50 Consult: Orthopedics Routine Consulting Provider: Sebastián Lua Reason for Consult: right hip fxr EMERGENT Consult: No MD Notified: Yes Date Notified: 07/02/25 Time Notified: 15:45 Method of Notification: ED Physician Initiated Reason For Visit: R HIP FRACTURE Diagnosis Discharge Diagnosis (1) Closed fracture of right hip: Status: Acute Code(s): S72.001A - Fracture of unspecified part of neck of right femur, initial encounter for closed fracture Qualifiers: Encounter type: initial encounter Qualified Code(s): S72.001A - Fracture of unspecified part of neck of right femur, initial encounter for closed fracture Plan This is a 84-year-old female admitted after she had fall at home resulting into right intertrochanteric fracture. 1. Right intertrochanteric fracture secondary to osteoporosis: Patient had ORIF with long, nail on 07/03/2025. She had bowel movement yesterday. On a stool softener, pain control. PT and OT. DVT prophylaxis as per orthopedic surgeon. 07/05: She noted bowel movement for 2-3 days. Dulcolax and MiraLAX ordered. Patient already on senna S. 07/06: Patient had bowel movement yesterday. Continue stool softener. #2 cardiac arrhythmias-again anesthesia stated that the patient had a brief run of V. tach which was asymptomatic, patient will be monitored on telemetry on [facility] 3 07/06: Patient asymptomatic. Continue her cardiac medications including atorvastatin, metoprolol and Imdur. #3 chronic obstructive pulmonary disease-patient will be given aerosol treatments, pulse ox is being monitored. No acute COPD exacerbation #4 Alzheimer's dementia-complicates care, management, recovery, and prognosis #5 hypothyroidism-patient is on Synthroid #6 coronary artery disease-patient is on a beta-kiara and aspirin #7 essential hypertension-patient will remain on her present medications, blood pressure is being monitored 8. Chronic anemia: Hemoglobin 8.4. Hold Plavix as patient already on aspirin and Eliquis 2.5 mg twice daily to avoid severe anemia. Patient also on sucralfate and pantoprazole for PUD Acute anemia on chronic anemia to 7.4, baseline hemoglobin is between 9 to 10 g, last one 10.5 on 07/02. Hold Eliquis and baby aspirin. 03/06: Patient has severe anemia therefore Eliquis was held but she is also high risk of DVT after hip surgery. H&H 8.2/26.3%. Eliquis resumed. Hold baby aspirin and Plavix. Continue pantoprazole and sucralfate. Check CBC in 3 days. DVT prophylaxis: On Eliquis 2.5 mg twice daily Patient is on multiple medications including calcium supplement, vitamin D resumed. Discharge medication reconciliation done. Discharge follow-up instructions completed. Discharge process discussed with the patient and all questions were answered to patient's satisfaction. Follow with PCP in 1 to 2 weeks Total time spent, exact 35 minutes on discharge meds reconciliation, examination, coordination of care with nurses and ancillary staff, review of imaging and blood test and discussion with the patient on follow-up instructions. Medications at Discharge Home Medications aspirin 81 mg tablet,delayed release 81 mg PO DAILY Heart health 01/02/25 Held on 07/06/25. Instructions: Hold while taking Eliquis. donepezil 5 mg tablet 5 mg PO QHS memory 01/02/25 isosorbide mononitrate 60 mg tablet,extended release 24 hr 60 mg PO DAILY Heart failure 01/02/25 levothyroxine 50 mcg tablet 50 mcg PO DAILY thyroid 01/02/25 acetaminophen 500 mg tablet 1,000 mg (2 x 500 mg) PO Q8 PRN Pain 1-5/10 or Fever #10 tabs 01/12/25 acetaminophen 650 mg rectal suppository 650 mg FL Q4H pain 01/23/25 albuterol sulfate 0.63 mg/3 mL solution for nebulization 0.63 mg continuous nebulization Q6H PRN shortness of breath or wheezing 01/23/25 calcium carbonate (Calcium 600) 600 mg PO DAILY supplem 01/23/25 guaifenesin 400 mg PO TID cough 01/23/25 guaifenesin 100 mg/5 mL oral liquid (Adult Tussin Chest Congestion) 200 mg PO Q4H PRN congestion 01/23/25 magnesium hydroxide 400 mg/5 mL oral suspension (Milk of Magnesia) 30 ml PO DAILY PRN constipation 01/23/25 metoprolol tartrate 50 mg tablet 50 mg PO BID blood pressure 01/23/25 aluminum-magnesium hydroxide 225 mg-200 mg/5 mL oral suspension 30 ml PO Q4H PRN heart burn 02/16/25 bisacodyl 10 mg rectal suppository 10 mg FL QDAY PRN constipation 02/16/25 dextrose 40 % oral gel (Glucose Gel) 10 g PO Q15M PRN 02/16/25 gabapentin 300 mg capsule 300 mg PO BID nerve pain 02/16/25 glucagon HCl 1 mg solution for injection (Glucagon (HCl) Emergency Kit) 1 mg subcut Q20M PRN 02/16/25 magnesium oxide 400 mg (241.3 mg magnesium) tablet (MagOx) 400 mg PO BID supple 02/16/25 mineral oil (Fleet Mineral Oil enema) 118 ml FL QDAY PRN constipation 02/16/25 mirtazapine 15 mg tablet 7.5 mg PO QHS sleep 02/16/25 omega-3 fatty acids 1,000 mg capsule 3,000 mg PO QDAY supplement 02/16/25 pantoprazole 40 mg tablet,delayed release 40 mg PO QHS acid reflex 02/16/25 atorvastatin 80 mg tablet 80 mg PO .hs cholesterol 07/04/25 calcium 500 mg (as carbonate)-vitamin D3 5 mcg (200 unit) tablet (Oyster Shell Calcium-Vitamin D3) 2 tab PO DAILY supplement 07/04/25 clopidogrel 75 mg tablet 75 mg PO DAILY blood thinner 07/04/25 Held on 07/06/25. Instructions: Hold while taking Eliquis. Patient has severe anemia cyanocobalamin (vitamin B-12) 1,000 mcg tablet 1,000 mcg PO DAILY supplement 07/04/25 ergocalciferol (vitamin D2) 1,250 mcg (50,000 unit) capsule 1,250 mcg PO .fri supplement 07/04/25 fluticasone propionate 220 mcg/actuation HFA aerosol inhaler 1 puff inhalation BID lung 07/04/25 losartan 25 mg tablet 25 mg PO DAILY heart, blood pressure 07/04/25 sucralfate 1 gram tablet 1 g PO BIDAC protect stomach 07/04/25 tiotropium bromide 18 mcg capsule with inhalation device 1 cap inhalation DAILY lungs 07/04/25 apixaban 5 mg tablet (Eliquis) 2.5 mg (1/2 x 5 mg) PO BID 1 month #30 tabs 07/06/25 sennosides 8.6 mg-docusate sodium 50 mg tablet (Stimulant Laxative Plus) 2 tab PO BID #0 tabs 07/06/25 tramadol 50 mg tablet 50 mg PO Q8H PRN pain 3 days #7 tabs 07/06/25 Physical Exam Narrative Seen and examined. She had a right hip surgery with ORIF with long gamma nail. She had bowel movement yesterday and today. Does not answer much, she has severe dementia. Physical exam General: Alert, Oriented x3, Cooperative HEENT: Atraumatic, PERRLA, EOMI, Normocephalic. Oral: No Gingival or Mucosal Lesions/ Ulcerations Neck: Supple, No JVD, Negative Carotid Bruits Chest wall/Lungs: Air entry diminished in bilateral lung bases. No crepitation/rhonchi Cardiovascular: Regular rate and rhythm, Normal S1,S2, No M/G/R Abdomen: Bowel Sounds Present, Soft, Non Tender, Non-Distended : No dysuria. No renal angle tenderness. No suprapubic tenderness. Extremities: No edema, Capillary Refill Less than 3 Seconds Skin: Right hip surgical dressing is dry. Musculoskeletal: No Tenderness to Palpation of Joints or Extremities. ROM restricted on right hip. Neurological: Cranial nerves II-XII grossly intact, DTR 2+/4. No acute focal neurological deficit. Psych/Mental Status: Flat affect, dementia. Weight / BMI Weight Weight: 99 lb 9.607 oz Body Mass Index (BMI) 19.5 ABG / Lab / Microbiology Data 07/06/25 06:39 07/06/25 06:39 Laboratory: Laboratory Results - last 24 hr 07/05/25 19:59: Hgb 8.4 L, Hct 26.8 L 07/06/25 06:39: WBC 9.1, RBC 3.35 L, Hgb 8.2 L, Hct 26.3 L, MCV 78.5 L, MCH 24.5 L, MCHC 31.2 L, RDW Std Deviation 53.4 H, RDW Coeff of Adonis 19.1 H, Plt Count 248, MPV 11.4, Immature Gran % (Auto) 0.300, Neut % (Auto) 68.0, Lymph % (Auto) 17.3 L, Bacon % (Auto) 11.3 H, Eos % (Auto) 2.8, Baso % (Auto) 0.3, Absolute Neuts (auto) 6.2, Absolute Lymphs (auto) 1.58, Nucleated RBC % 0, Sodium 136, Potassium 4.2, Chloride 100, Carbon Dioxide 26.4, Anion Gap 9, BUN 27 H, Creatinine 0.94, Estim Creat Clear Calc 31.21 L, Est GFR (MDRD) Non-Af 59 L, B UN/Creatinine Ratio 28.8 H, Glucose 97, Calcium 8.6 D/C Instructions Discharge Activity: Return to Normal Activity Weight Bearing Status: Weight bearing as tolerated Call your doctor if you observe: Fever of 101 or Higher, Coldness, Increased Pain, Numbness or Tingling, Change in Color, Inability to urinate, Inability to have a bowel movement, Shortness of breath, Dizziness, Fainting spells, Swelling in the ankles, Chest pain, Prolonged hiccupping, Increased palpitations (irregular heartbeat) and Calf discomfort DC O2, CPAP, BIPAP Needs Home O2 Discharge instructions: Yes Type of respiratory needs?: Oxygen Oxygen frequency: Continuous Continuous oxygen liters per minute: 2 DC home with Oxygen: Yes Home O2 MD Review: I have reviewed the oxygen testing, and the patient qualifies for home oxygen equipment and portability. The patient is mobile in the home and the community. Additional Instructions: CBC in 3 days When: IN 2 WEEKS Meaningful Use Info Meaningful Use Meaningful Use Diagnoses (Choose all that apply): None applicable Discharge Plan Admission Admit Date/Time: 07/02/25 15:40 Primary Reason for Your Visit: Right hip fracture. Attending Provider: Tan Triplett Primary Care Provider: Wayne Conde Consulting Providers: Vincent Cool; Sebastián Lua; Priyank Bauer Instructions Additional Instructions / Restrictions: CBC in 3 days. Discharge Orders/Prescriptions Prescriptions: New Eliquis 5 mg Tablet 2.5 mg PO BID 30 Days Qty: 30 0RF Rx Instructions: Discontinue if platelet count drops less than 50,000 or hemoglobin less than 8 g% sennosides-docusate sodium [Stimulant Laxative Plus] 8.6-50 mg Tablet 2 tab PO BID Qty: 0 0RF Continued aluminum-magnesium hydroxide 225-200 mg/5 mL suspension 30 ml PO Q4H PRN (Reason: heart burn) bisacodyl 10 mg suppository 10 mg FL QDAY PRN (Reason: constipation) omega-3 fatty acids 1,000 mg capsule 3,000 mg PO QDAY mineral oil [Fleet Mineral Oil] Enema 118 ml FL QDAY PRN (Reason: constipation) Rx Instructions: discard any unused portion glucagon HCl [Glucagon (HCl) Emergency Kit] 1 mg recon soln 1 mg subcut Q20M PRN Rx Instructions: until target blood sugar attained dextrose [Glucose Gel] 40 % gel 10 g PO Q15M PRN Rx Instructions: until symptoms of low blood sugar are controlled mirtazapine 15 mg tablet 7.5 mg PO QHS pantoprazole 40 mg tablet,delayed release (DR/EC) 40 mg PO QHS gabapentin 300 mg capsule 300 mg PO BID donepezil 5 mg tablet 5 mg PO QHS isosorbide mononitrate 60 mg tablet extended release 24 hr 60 mg PO DAILY levothyroxine 50 mcg tablet 50 mcg PO DAILY acetaminophen 500 mg tablet 1,000 mg PO Q8 PRN (Reason: Pain 1-04/02 or Fever) Qty: 10 0RF Rx Instructions: For pain calcium carbonate-vitamin D3 [Oyster Shell Calcium-Vit D3] 500 mg-5 mcg (200 unit) tablet 2 tab PO DAILY atorvastatin 80 mg tablet 80 mg PO .hs cyanocobalamin (vitamin B-12) 1,000 mcg tablet 1,000 mcg PO DAILY ergocalciferol (vitamin D2) 1,250 mcg (50,000 unit) capsule 1,250 mcg PO .fri fluticasone propionate 220 mcg/actuation HFA aerosol inhaler 1 puff inhalation BID losartan 25 mg tablet 25 mg PO DAILY sucralfate 1 gram tablet 1 g PO BIDAC Rx Instructions: 1 tab in the morning and 1 tab in the evening. take before meals tiotropium bromide 18 mcg capsule, w/inhalation device 1 cap inhalation DAILY tramadol 50 mg tablet 50 mg PO Q8H PRN (Reason: pain) 3 Days Qty: 7 0RF albuterol sulfate 0.63 mg/3 mL solution for nebulization 0.63 mg continuous nebulization Q6H PRN (Reason: shortness of breath or wheezing) Patient Comments: [NO ORIGINAL SIG] calcium carbonate [Calcium 600] 600 mg calcium (1,500 mg) tablet 600 mg PO DAILY metoprolol tartrate 50 mg tablet 50 mg PO BID imanaifenesin 400 mg PO TID guaifenesin [Adult Tussin Chest Congestion] 100 mg/5 mL liquid 200 mg PO Q4H PRN (Reason: congestion) magnesium hydroxide [Milk of Magnesia] 400 mg/5 mL suspension 30 ml PO DAILY PRN (Reason: constipation) acetaminophen 650 mg suppository 650 mg FL Q4H magnesium oxide [MagOx] 400 mg (241.3 mg magnesium) tablet 400 mg PO BID Held aspirin 81 mg tablet,delayed release (DR/EC) 81 mg PO DAILY Hold Instructions: Hold while taking Eliquis. clopidogrel 75 mg tablet 75 mg PO DAILY Hold Instructions: Hold while taking Eliquis. Patient has severe anemia Rx Instructions: daily at 17:00 Discontinued acetaminophen 325 mg capsule 650 mg PO Q4H PRN (Reason: fever) Referrals / Follow Up: Wayne Conde DO [Primary Care Provider] - Within 2 Weeks Sebastián Lua MD [Med Staff - Active Staff] - Within 2 Weeks Disposition Disposition (needs filled in before D/C Order can be placed): [facility]
--- NOTE | 2025-07-06 13:04 | CASEMGMT ---
Social Work- Onsite completed. Physician updated and pt is ready for discharge today.? 7000 convalescent form completed in [facility]ENS. DCA and bedside nurse notified of discharge. DCA to complete all final arrangements and notifications. Disposition:[facility], [facility] level of care ZECHARIAH Guerrier
--- NOTE | 2025-07-06 13:37 | PHA.DC.MR.R ---
Pharmacy [place] Med Reconciliation Pharmacy Service has performed discharge medication reconciliation for this patient. The patient's discharge medication list was reviewed for discrepancies and discrepancies were resolved. Medications at Discharge Home Medications aspirin 81 mg tablet,delayed release 81 mg PO DAILY Heart health 01/02/25 Held on 07/06/25. Instructions: Hold while taking Eliquis. donepezil 5 mg tablet 5 mg PO QHS memory 01/02/25 isosorbide mononitrate 60 mg tablet,extended release 24 hr 60 mg PO DAILY Heart failure 01/02/25 levothyroxine 50 mcg tablet 50 mcg PO DAILY thyroid 01/02/25 acetaminophen 500 mg tablet 1,000 mg (2 x 500 mg) PO Q8 PRN Pain 1-10 or Fever #10 tabs 01/12/25 acetaminophen 650 mg rectal suppository 650 mg [place] Q4H pain 01/23/25 albuterol sulfate 0.63 mg/3 mL solution for nebulization 0.63 mg continuous nebulization Q6H PRN shortness of breath or wheezing 01/23/25 calcium carbonate (Calcium 600) 600 mg PO DAILY supplem 01/23/25 guaifenesin 400 mg PO TID cough 01/23/25 guaifenesin 100 mg/5 mL oral liquid (Adult Tussin Chest Congestion) 200 mg PO Q4H PRN congestion 01/23/25 magnesium hydroxide 400 mg/5 mL oral suspension (Milk of Magnesia) 30 ml PO DAILY PRN constipation 01/23/25 metoprolol tartrate 50 mg tablet 50 mg PO BID blood pressure 01/23/25 aluminum-magnesium hydroxide 225 mg-200 mg/5 mL oral suspension 30 ml PO Q4H PRN heart burn 02/16/25 bisacodyl 10 mg rectal suppository 10 mg [place] QDAY PRN constipation 02/16/25 dextrose 40 % oral gel (Glucose Gel) 10 g PO Q15M PRN 02/16/25 gabapentin 300 mg capsule 300 mg PO BID nerve pain 02/16/25 glucagon HCl 1 mg solution for injection (Glucagon (HCl) Emergency Kit) 1 mg subcut Q20M PRN 02/16/25 magnesium oxide 400 mg (241.3 mg magnesium) tablet (MagOx) 400 mg PO BID supple 02/16/25 mineral oil (Fleet Mineral Oil enema) 118 ml IA QDAY PRN constipation 02/16/25 mirtazapine 15 mg tablet 7.5 mg PO QHS sleep 02/16/25 omega-3 fatty acids 1,000 mg capsule 3,000 mg PO QDAY supplement 02/16/25 pantoprazole 40 mg tablet,delayed release 40 mg PO QHS acid reflex 02/16/25 atorvastatin 80 mg tablet 80 mg PO .hs cholesterol 07/04/25 calcium 500 mg (as carbonate)-vitamin D3 5 mcg (200 unit) tablet (Oyster Shell Calcium-Vitamin D3) 2 tab PO DAILY supplement 07/04/25 clopidogrel 75 mg tablet 75 mg PO DAILY blood thinner 07/04/25 Held on 07/06/25. Instructions: Hold while taking Eliquis. Patient has severe anemia cyanocobalamin (vitamin B-12) 1,000 mcg tablet 1,000 mcg PO DAILY supplement 07/04/25 ergocalciferol (vitamin D2) 1,250 mcg (50,000 unit) capsule 1,250 mcg PO .fri supplement 07/04/25 fluticasone propionate 220 mcg/actuation HFA aerosol inhaler 1 puff inhalation BID lung 07/04/25 losartan 25 mg tablet 25 mg PO DAILY heart, blood pressure 07/04/25 sucralfate 1 gram tablet 1 g PO BIDAC protect stomach 07/04/25 tiotropium bromide 18 mcg capsule with inhalation device 1 cap inhalation DAILY lungs 07/04/25 apixaban 5 mg tablet (Eliquis) 2.5 mg (1/2 x 5 mg) PO BID 1 month #30 tabs 07/06/25 sennosides 8.6 mg-docusate sodium 50 mg tablet (Stimulant Laxative Plus) 2 tab PO BID #0 tabs 07/06/25 tramadol 50 mg tablet 50 mg PO Q8H PRN pain 3 days #7 tabs 07/06/25
[2025-07-06] MEDS: Ensure Plus High Protein 120 ML LIQUID PO (14:21)
--- NOTE | 2025-07-06 14:32 | CASEMGMT ---
Discharge Planning Discharge orders, signed med list, and transport time sent to [facility]. Physicians will transport pt by cot at 4p. Nursing, SW, and pts daughter (Naheed) updated. Larissa Rodrigues DC Planning Asst.
[2025-07-06 14:59] VITALS: BP 123/72; PULSE 83; RESP 16; TEMP 36.5; O2SAT 97
== END 2025-07-06 15:23 | disposition skilled nursing facility (03) | DRG 481 ==
LOC: ED 15:04 → MS3 15:41
PROVIDERS: Orthopaedic Surgery; Emergency Provider Emergency Medicine; PCP Family Medicine; Visit Provider Internal Medicine
PROC: 0QS606Z Reposition Right Upper Femur with Intramedullary Internal Fixation Device, Open Approach (ICD-10-PCS; CPT 27245; principal; 2025-07-03 08:00)
DX: M80.051A Age-related osteoporosis with current pathological fracture, right femur, initial encounter for fracture (principal); D68.32 Hemorrhagic disorder due to extrinsic circulating anticoagulants; I47.20 Ventricular tachycardia, unspecified; D62 Acute posthemorrhagic anemia; I11.0 Hypertensive heart disease with heart failure; F02.80 Dementia in other diseases classified elsewhere, unspecified severity, without behavioral disturbance, psychotic disturbance, mood disturbance, and anxiety; J44.9 Chronic obstructive pulmonary disease, unspecified; E03.9 Hypothyroidism, unspecified; I50.9 Heart failure, unspecified; E78.5 Hyperlipidemia, unspecified; K21.9 Gastro-esophageal reflux disease without esophagitis; I25.10 Atherosclerotic heart disease of native coronary artery without angina pectoris; G30.9 Alzheimer's disease, unspecified; I25.2 Old myocardial infarction; W18.30XA Fall on same level, unspecified, initial encounter; Y92.009 Unspecified place in unspecified non-institutional (private) residence as the place of occurrence of the external cause; Z79.890 Hormone replacement therapy; Z79.82 Long term (current) use of aspirin; Z79.899 Other long term (current) drug therapy; Z87.891 Personal history of nicotine dependence
CPT/HCPCS: 36415; 71045; 73502; 76000; 80048; 82040; 82247; 82306; 84075; 84155; 84443; 84450; 84460; 85014; 85018; 85025; 85610; 86850; 86900; 86901; 93005; 94640; 97116; 97162; 97166; 97530; 99285; C1713; C1776; A4216; J2405; J2916